=== PATIENT | female | born 1990 | race Caucasian/White ===

== ENCOUNTER 2016-06-28 18:00 | Emergency (ER) | payer MEDICAID, OTHER ==
[~2016-06-28 18:00] MED LIST: /OMEP10CA PO; /ONDA4TA PO; /OXCA30TA OR; ABIL2TAB2 PO; ACET50TAOT PO; ALBUTEROL INH; AMBI10TA OR; AMBI10TA PO; ANBE10LI TOP; ARTANE PO; ATARAX PO; BIRTH CONTROL PO; BLISTEX; CATA0.2T OR; CELE10TA OR; CIPR500T4 OR; CLOM50TA2 PO; CLON0.2T PO; DICL50TA2 PO; DIPH25CA PO; EFFE75CA75 OR; EFFEXOR XR PO; FLEXERIL PO; GABA600T PO; GABA600T3 OR; GARC500T PO; HYDR1CAP25 PO; IBUP800T23 PO; IBUP80TA PO; IBUPPOW25 PO; KEFL500C7 PO; LIDO5DIS EX; LOES1TAB12 PO; LOES1TAB2 PO; LOXAPINE PO; LOXITANE; METF500T PO; METH20TA29 PO; NEUR100C OR; NEUR600T OR; NORCOTAB PO; OMEP40CA2 PO; ONDA4TAB6 PO; PARO-39 PO; PAXI10TA2 PO; PAXI20TA3 PO; PERCOCET PO; PRENTAB74 PO; PRIL20CA OR; PRIL40CA PO; SOMA350T PO; TERCONAZOLE; TRAM50TA2 PO; TRAZ50TA OR; TYLE325T5 PO; TYLE500T78 PO; VALI5TAB PO; VENL75TA2 OR; VENLAFAXINE HCL PO; VOLT1GEL EX; VOLTAREN PO; ZOFR20TA PO; ZOFR4TAB3 PO; ZOLO50TA OR; artane
[2016-06-28 18:31] LABS: BASO % 0.4 % (0.0-1.0); EOS # 0.4 K/mm3 (0.0-0.50); EOS % 4.2 % (0.0-3.0); LARGE UNSTAINED CELL # 0.2 K/mm3 (0.0-0.4); LYMPH # 3.3 K/mm3 (1.5-6.5); MEAN CORPUSCULAR HEMOGLOBIN 25.1 pg (27.0-33.0); MEAN CORPUSCULAR HGB CONC 31.7 g/dl (32.0-36.5); MEAN CORPUSCULAR VOLUME 79.2 fl (80.0-96.0); MONO # 0.3 K/mm3 (0.0-0.8); MONO % 2.6 % (0.0-5.0); NEUTROPHILS # 5.5 K/mm3 (1.8-7.7); NEUTROPHILS % 56.6 % (36.0-66.0); PLATELET COUNT, AUTOMATED 336 k/mm3 (150-450); RED CELL DISTRIBUTION WIDTH 16.1 % (11.5-14.5); WHITE BLOOD COUNT 9.6 K/mm3 (4.0-10.0)
[2016-06-28] MEDS ORDERED: ONDANSETRON 4MG/2ML VIAL (J2405) As Ordered ONE (18:38)
[2016-06-28] MEDS ORDERED: MORPHINE 4 MG/ML 1ML SYRINGE As Ordered ONE ×2 (18:41→19:18)
[2016-06-28 19:02] LABS: ALBUMIN 3.1 GM/DL (3.2-5.2); ALBUMIN/GLOBULIN RATIO 0.82 (1.00-1.93); ALKALINE PHOSPHATASE 103 U/L (45-117); ALT/SGPT 20 U/L (12-78); ANION GAP 8 MEQ/L (8-16); AST/SGOT 10 U/L (15-37); BILIRUBIN,DIRECT < 0.1 MG/DL (0.0-0.2); BILIRUBIN,TOTAL 0.1 MG/DL (0.2-1.0); BLOOD UREA NITROGEN 8 MG/DL (7-18); CALCIUM LEVEL 8.4 MG/DL (8.5-10.1); CARBON DIOXIDE LEVEL 30 MEQ/L (21-32); CHLORIDE LEVEL 103 MEQ/L (98-107); CREATININE FOR GFR 0.62 MG/DL (0.55-1.02); GLOMERULAR FILTRATION RATE > 60.0 (>60); GLUCOSE, FASTING 91 MG/DL (70-105); HCG, SERUM QUANTITATIVE < 1.0 MIU/ML; POTASSIUM SERUM 3.8 MEQ/L (3.5-5.1); SODIUM LEVEL 141 MEQ/L (136-145); TOTAL PROTEIN 6.9 GM/DL (6.4-8.2)
[2016-06-28] MEDS ORDERED: ISOVUE-370 76% 100ML VIAL (Q9967) As Ordered ONE (20:12)
--- NOTE | 2016-06-28 20:44 | REP ---
Clinical: Acute abdominal pain. Technique: Axial contrast enhanced images from the lung bases to the pubic symphysis using 100 ml Isovue 370 intravenous contrast material with coronal and sagittal re-formations. Comparison: 02/24/2016. Findings: Trace left lower lobe and lingular atelectasis. Liver, spleen, pancreas, bilateral adrenal glands and kidneys are normal. The patient is status post cholecystectomy. The enteric system is without obstruction or acute inflammatory process and a normal terminal ileum and appendix are identified in the right lower quadrant. Pelvis demonstrates normal bladder and age-appropriate uterus/ left adnexa. 5 cm right ovarian cyst identified, likely physiologic in possibly related to patient's symptoms. No pelvic fluid or ascites. No intraperitoneal or retroperitoneal adenopathy. No free air. Vasculature appears grossly normal. Surrounding musculoskeletal structures are intact. Impression: Trace left basilar atelectasis. 5 cm right ovarian cyst possibly related to patient's symptoms. Consider ultrasound evaluation in 4-6 weeks to evaluate for resolution. Signed by Oleg Marr MD 06/28/2016 08:36 P
[2016-06-28] MEDS ORDERED: SUCRALFATE 1 GM TAB As Ordered ONE (21:30)
--- NOTE | 2016-06-28 22:33 | EDDOCDS ---
Nurse's Notes [facility] Name: Katie Busby Age: 25 yrs Sex: Female : 1990 Arrival Date: 06/28/2016 Time: 18:00 Bed 13 Private MD: Diagnosis: Acute gastritis Presentation: 06/28 18:07 Presenting complaint: Patient states: epigastric pain for the last hour. had dy at home and was not seen for it by DIGITAL MARKETING INTERN or PCP. Risk factors: the patient reports no vaginal bleeding. Adult Sepsis Screening: Suicide/Homicide risk assessment- the patient denies having any suicidal and/or homicidal ideations and does not present with any other emotional, behavioral or mental health complaints. 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 Transition of care: patient was not received from another setting of care. 18:07 Acuity: SHELBY Level 3 dy 18:07 Method Of Arrival: Ambulance dy 18:15 Adult Sepsis Screening: The patient does not have new or worsening altered mentation. dy Patient's respiratory rate is less than 22. Systolic blood pressure is greater than 100. Patient has a qSOFA score of 0- Negative Sepsis Screen. Triage Assessment: 18:10 General: Appears in no apparent distress. Pain: Location: epigastric area. HIV dy screening NA for this visit Offered previously. GI: Reports epigastric pain. DIGITAL MARKETING INTERN: 18:15 LMP N/A - recent miscarriage dy Historical: - Allergies: NSAIDS; Reglan (Anxiety); Robaxin (Hives)panic attack; SULFA (SULFONAMIDES) (Unknown, Hives); - Home Meds: 1. clonidine HCl 0.2 mg Oral tab 1 tab 2 times per day 2. Paxil 60mg Oral tab 1 tab once daily 3. omeprazole 40 mg Oral cpDR 1 cap once daily - PMHx: Adenomyosis; Anemia; Anxiety; chronic pelvic pain; Depression; ectopic ; Fibromyalgia; GERD; Pancreatitis; PCOS; - PSHx: Tonsillectomy; ; Cholecystectomy; - Social history: No barriers to communication noted, The patient speaks fluent Persian, Speaks appropriately for age, Smoking status: . - Family history: Not pertinent. - : The pt / caregiver states he / she is not on anticoagulants. Home medication list is obtained from the patient. - Exposure Risk Screening:: None identified. Screenin:01 Infection Control. deg 18:47 Screening information is obtained from the patient. Fall risk: No risks identified. hs1 Assistance ADL's: requires no assistance with activities of daily living. Abuse/DV Screen: The patient / caregiver reports he/she is: not in a situation that causes fear, pain or injury. Nutritional screening: No deficits noted. Advance Directives: There is no active DNR order. home support is adequate. Assessment: 18:30 General: Appears in no apparent distress, Behavior is appropriate for age, cooperative. hs1 Pain: Location: abdomen Pain currently is 10 out of 10 on a pain scale. Cardiovascular: Rhythm is sinus tachycardia. Respiratory: Airway is patent. GI: Abdomen is obese, Bowel sounds present X 4 quads. Abd is soft Abd is tender to palpation X 4 quads. Derm: Skin is pink, warm & dry. normal. 19:30 Reassessment: Patient appears in no apparent distress at this time. Patient states tm5 symptoms have not improved. 1st contact with pt in Room 13, complains of lower abdominal pain at this time, states that pain wasn't any better after the 1st dose of Morphine states "Morphine isn't working for me", ASHKAN Sanches aware of this . 20:20 Reassessment: Patient states symptoms have not improved. pt refuses to take GI Cocktail tm5 states "they make me vomit", ASHKAN Sanches aware of this, still complains of 9/10 lower abdominal pain. 20:55 Reassessment: Patient appears in no apparent distress at this time. Patient states tm5 symptoms have not improved. pt states that "nothing has helped my pain, I need something different & stronger", TELEVISION REPAIRER aware . 22:31 Reassessment: Patient appears in no apparent distress at this time. Patient denies pain tm5 at this time. Patient states feeling better. Patient states symptoms have improved. Vital Signs: 18:12 BP 103 / 76 (auto/); tm5 18:15 BP 103 / 76; Pulse 119; Resp 18; Temp 96.3(T); Pulse Ox 96% on R/A; Weight 131.54 kg dy (R); Height 5 ft. 7 in. (170.18 cm) (R); Pain 10/10; 18:15 Pulse 112 MON; Pulse Ox 97% ; tm5 18:32 BP 116 / 84 (auto/); tm5 18:33 Pulse 106 MON; Pulse Ox 97% on R/A; tm5 19:15 BP 118 / 54; Pulse 74; Resp 18; Pulse Ox 99% on R/A; Pain 9/10; tm5 21:34 BP 123 / 58; Pulse 78; Resp 18; Temp 98.6(O); Pulse Ox 99% on R/A; Pain 7/10; tm5 22:31 BP 118 / 56; Pulse 78; Resp 20; Temp 98.0(O); Pulse Ox 99% on R/A; Pain 0/10; tm5 18:15 Body Mass Index 45.42 (131.54 kg, 170.18 cm) dy Vitals: 18:15 Log In Time N/A - ambulance arrival. dy ED Course: 18:01 Patient visited by Toña Montgomery, Take Away Man. deg 18:01 Patient moved to Waiting deg 18:02 Patient moved to 13 deg 18:09 Triage Initiated dy 18:13 [facility] le 18:20 Patient visited by Nelida Sanches FNP. le 18:20 Patient visited by Nelida Sanches FNP. le 18:46 Inserted saline lock: 20 gauge in right antecubital area The patient tolerated the hs1 procedure well. 18:48 The patient / caregiver is instructed regarding the plan of care and ED course. hs1 18:51 Patient visited by Mary Samaniego RN. hs1 19:15 Pulse ox on. NIBP on. tm5 19:30 Patient visited by Angelica Méndez RN. tm5 20:10 Patient visited by Angelica Méndez RN. tm5 20:[address] tm5 20:19 Patient visited by Angelica Méndez RN. tm5 20:19 Patient moved back [address]. tm5 20:44 [facility] was scanned into [employer] and attached to record. zo 20:55 Patient visited by Angelica Méndez,NISREEN. tm5 21:02 Patient visited by Angelica Méndez RN. tm5 21:33 Patient visited by Angelica Méndez RN. tm5 21:34 CT ABD & PELVIS: IV Contrast Only Returned. EDMS 22:14 [facility] is Referral Physician. le 22:31 Discontinued lock intact, bleeding controlled, pressure dressing applied, No tm5 redness/swelling at site. No procedures done that require assistance. Administered Medications: 18:46 Drug: NS 0.9% 1000 ml [sodium chloride 0.9 % intravenous solution] Route: IV; Rate: hs1 bolus; Site: right antecubital; 18:46 Drug: Ondansetron 4 mg [ondansetron HCl 2 mg/mL intravenous solution (2 mL)] Route: hs1 IVP; Site: right antecubital; 19:33 Follow up: Response: Nausea is resolved; No Adverse Reaction tm5 18:46 Drug: morphine 4 mg [morphine 4 mg/mL intravenous cartridge (1 mL)] Route: IVP; Site: hs1 right antecubital; 19:25 Drug: morphine 4 mg [morphine 4 mg/mL intravenous cartridge (1 mL)] Route: IVP; Site: tm5 right antecubital; 19:50 Follow up: Response: No Adverse Reaction; No significant change.; Pain is unchanged, tm5 physician notified 20:20 Not Given (Patient Refused; pt states GI cocktails make her vomit, TELEVISION REPAIRER aware): GI tm5 Cocktail - (Alum-Mag Hydroxide-Simeth Suspension 225 mg-200 mg-25 mg/5 mL 30 ml, Lidocaine Liquid 2 % 10 ml, Hyoscyamine Liquid 10 ml) PO once; Pre-mixed 50mL unit dose 21:03 Drug: NS 0.9% 1000 ml [sodium chloride 0.9 % intravenous solution] Route: IV; Rate: 100 tm5 mL/hr; Site: right antecubital; 21:34 Drug: Sucralfate 1 grams [sucralfate 1 gram tablet (1 tabs)] Route: PO; tm5 Order Results: Lab Order: Basic Metabolic Profile; SPEC'M 06/28/16 18:24 Test: GLUCOSE, FASTING; Value: 91; Range: 70-105; Units: MG/DL; Status: F Test: BLOOD UREA NITROGEN; Value: 8; Range: 7-18; Units: MG/DL; Status: F Test: CREATININE FOR GFR; Value: 0.62; Range: 0.55-1.02; Units: MG/DL; Status: F Test: GLOMERULAR FILTRATION RATE; Value: > 60.0; Range: >60; Status: F Test: SODIUM LEVEL; Value: 141; Range: 136-145; Units: MEQ/L; Status: F Test: POTASSIUM SERUM; Value: 3.8; Range: 3.5-5.1; Units: MEQ/L; Status: F Test: CHLORIDE LEVEL; Value: 103; Range: 98-107; Units: MEQ/L; Status: F Test: CARBON DIOXIDE LEVEL; Value: 30; Range: 21-32; Units: MEQ/L; Status: F Test: ANION GAP; Value: 8; Range: 8-16; Units: MEQ/L; Status: F Test: CALCIUM LEVEL; Value: 8.4; Range: 8.5-10.1; Abnormal: Below low normal; Units: MG/DL; Status: F Test Note: ; Units are mL/min/1.73 m2 Chronic Kidney Disease Staging per NKF: Stage I & II GFR >=60 Normal to Mildly Decreased Stage III GFR 30-59 Moderately Decreased Stage IV GFR 15-29 Severely Decreased Stage V GFR <15 Very Little GFR Left ESRD GFR <15 on RECEPTION AGENT Lab Order: CBC with Diff; SPEC'M 06/28/16 18:24 Test: WHITE BLOOD COUNT; Value: 9.6; Range: 4.0-10.0; Units: K/mm3; Status: F Test: RED BLOOD COUNT; Value: 4.40; Range: 4.00-5.40; Units: M/mm3; Status: F Test: HEMOGLOBIN; Value: 11.0; Range: 12.0-16.0; Abnormal: Below low normal; Units: g/dl; Status: F Test: HEMATOCRIT; Value: 34.8; Range: 36.0-47.0; Abnormal: Below low normal; Units: %; Status: F Test: MEAN CORPUSCULAR VOLUME; Value: 79.2; Range: 80.0-96.0; Abnormal: Below low normal; Units: fl; Status: F Test: MEAN CORPUSCULAR HEMOGLOBIN; Value: 25.1; Range: 27.0-33.0; Abnormal: Below low normal; Units: pg; Status: F Test: MEAN CORPUSCULAR HGB CONC; Value: 31.7; Range: 32.0-36.5; Abnormal: Below low normal; Units: g/dl; Status: F Test: RED CELL DISTRIBUTION WIDTH; Value: 16.1; Range: 11.5-14.5; Abnormal: Above high normal; Units: %; Status: F Test: PLATELET COUNT, AUTOMATED; Value: 336; Range: 150-450; Units: k/mm3; Status: F Test: NEUTROPHILS %; Value: 56.6; Range: 36.0-66.0; Units: %; Status: F Test: LYMPH %; Value: 34.0; Range: 24.0-44.0; Units: %; Status: F Test: MONO %; Value: 2.6; Range: 0.0-5.0; Units: %; Status: F Test: EOS %; Value: 4.2; Range: 0.0-3.0; Abnormal: Above high normal; Units: %; Status: F Test: BASO %; Value: 0.4; Range: 0.0-1.0; Units: %; Status: F Test: LARGE UNSTAINED CELL %; Value: 2.0; Range: 0.0-4.0; Units: %; Status: F Test: NEUTROPHILS #; Value: 5.5; Range: 1.8-7.7; Units: K/mm3; Status: F Test: LYMPH #; Value: 3.3; Range: 1.5-6.5; Units: K/mm3; Status: F Test: MONO #; Value: 0.3; Range: 0.0-0.8; Units: K/mm3; Status: F Test: EOS #; Value: 0.4; Range: 0.0-0.50; Units: K/mm3; Status: F Test: BASO #; Value: 0.0; Range: 0.0-0.2; Units: K/mm3; Status: F Test: LARGE UNSTAINED CELL #; Value: 0.2; Range: 0.0-0.4; Units: K/mm3; Status: F Lab Order: Lipase; SPEC'M 06/28/16 18:24 Test: LIPASE; Value: 185; Range: 73-393; Units: U/L; Status: F Lab Order: Liver Profile; SPEC'M 06/28/16 18:24 Test: AST/SGOT; Value: 10; Range: 15-37; Abnormal: Below low normal; Units: U/L; Status: F Test: ALT/SGPT; Value: 20; Range: 12-78; Units: U/L; Status: F Test: ALKALINE PHOSPHATASE; Value: 103; Range: 45-117; Units: U/L; Status: F Test: BILIRUBIN,TOTAL; Value: 0.1; Range: 0.2-1.0; Abnormal: Below low normal; Units: MG/DL; Status: F Test: BILIRUBIN,DIRECT; Value: < 0.1; Range: 0.0-0.2; Units: MG/DL; Status: F Test: TOTAL PROTEIN; Value: 6.9; Range: 6.4-8.2; Units: GM/DL; Status: F Test: ALBUMIN; Value: 3.1; Range: 3.2-5.2; Abnormal: Below low normal; Units: GM/DL; Status: F Test: ALBUMIN/GLOBULIN RATIO; Value: 0.82; Range: 1.00-1.93; Abnormal: Below low normal; Status: F Lab Order: Hcg, Serum Quantitative; SPEC'M 06/28/16 18:24 Test: HCG, SERUM QUANTITATIVE; Value: < 1.0; Units: MIU/ML; Status: F Test Note: ; GESTATIONAL AGE APPROXIMATE HCG RANGE (MIU/ML) 0.2-1 WEEK 5-50 1-2 WEEKS 50-500 2-3 WEEKS 100-5,000 3-4 WEEKS 500-10,000 4-5 WEEKS 1,000-50,000 5-6 WEEKS 10,000-100,000 6-8 WEEKS 15,000-200,000 2-3 MONTHS 10,000-100,000 NON FEMALES LESS THAN 3.0 Patient samples may contain human heterophilic antibodies that could react with immunoassays to give falsely elevated or depressed results. This assay has been designed to minimize interference from heterophilic antibodies. Elevated hCG levels have also been associated with trophoblastic disease and nontrophoblastic neoplasms. The possibility of having these diseases should be considered before a diagnosis of is made. This test is not intended for use as a surrogate marker for aiding in the diagnosis or monitoring the treatment of cancer patients. Sp[employer] methodology. Lab Order: UA; SPEC'M 06/28/16 19:26 Test: APPEARANCE, URINE; Value: CLEAR; Range: CLEAR; Status: F Test: COLOR, URINE; Value: YELLOW; Range: YELLOW; Status: F Test: PH,URINE; Value: 7.0; Range: 5.0-9.0; Units: UNITS; Status: F Test: SPECIFIC GRAVITY URINE AUTO; Value: 1.013; Range: 1.002-1.035; Status: F Test: PROTEIN, URINE AUTO; Value: NEGATIVE; Range: NEGATIVE; Units: mg/dL; Status: F Test: GLUCOSE, URINE (UA) AUTO; Value: NEGATIVE; Range: NEGATIVE; Units: mg/dL; Status: F Test: KETONE, URINE AUTO; Value: NEGATIVE; Range: NEGATIVE; Units: mg/dL; Status: F Test: UROBILINOGEN, URINE AUTO; Value: 0.2; Range: 0.0-2.0; Units: mg/dL; Status: F Test: BILIRUBIN, URINE AUTO; Value: NEGATIVE; Range: NEGATIVE; Status: F Test: NITRITE, URINE AUTO; Value: NEGATIVE; Range: NEGATIVE; Status: F Test: LEUKOCYTE ESTERASE, URINE AUTO; Value: NEGATIVE; Range: NEGATIVE; Status: F Test: BLOOD, URINE BLOOD; Value: NEGATIVE; Range: NEGATIVE; Status: F Test: WBC, URINE AUTO; Value: 2; Range: 0-3; Units: /HPF; Status: F Test: RBC, URINE AUTO; Value: 1; Range: 0-3; Units: /HPF; Status: F Test: BACTERIA, URINE AUTO; Value: 1+; Range: NEGATIVE; Abnormal: Above high normal; Status: F Test: SQUAMOUS EPITHELIAL CELL UR AU; Value: 1; Range: 0-6; Units: /HPF; Status: F Test: HYALINE CAST, URINE AUTO; Value: 0; Range: 0-1; Units: /LPF; Status: F Radiology Order: CT ABD & PELVIS: IV Contrast Only Test: CT ABD & PELVIS: IV Contrast Only REASON FOR EXAMINATION: Abdomen Pain; Clinical: Acute abdominal pain.; ; Technique: Axial contrast enhanced images from the lung bases to the pubic; symphysis using 100 ml Isovue 370 intravenous contrast material with coronal and; sagittal re-formations.; ; Comparison: 02/24/2016.; ; Findings:; Trace left lower lobe and lingular atelectasis.; ; Liver, spleen, pancreas, bilateral adrenal glands and kidneys are normal. The; patient is status post cholecystectomy. The enteric system is without; obstruction or acute inflammatory process and a normal terminal ileum and; appendix are identified in the right lower quadrant.; ; Pelvis demonstrates normal bladder and age-appropriate uterus/ left adnexa. 5 cm; right ovarian cyst identified, likely physiologic in possibly related to; patient's symptoms. No pelvic fluid or ascites. No intraperitoneal or; retroperitoneal adenopathy. No free air. Vasculature appears grossly normal.; Surrounding musculoskeletal structures are intact.; ; Impression:; Trace left basilar atelectasis.; 5 cm right ovarian cyst possibly related to patient's symptoms. Consider; ultrasound evaluation in 4-6 weeks to evaluate for resolution.; ; ; Signed by; Oleg Marr MD 06/28/2016 08:36 P; Outcome: 22:14 Discharge ordered by Provider. le 22:31 Discharge Assessment: Patient awake, alert and oriented x 3. No cognitive and/or tm5 functional deficits noted. Patient verbalized understanding of disposition instructions. patient administered narcotics - yes. Pt provided with safe discharge. The following High Risk Discharge criteria are identified: None. Discharged to home ambulatory. Condition: good Condition: stable Condition: improved. Discharge instructions given to patient, Instructed on discharge instructions, follow up and referral plans. medication usage, Demonstrated understanding of instructions, medications, Pt was receptive of discharge instructions/ teaching. Prescriptions given X 1. CT Study completed. Property :Personal belongings accompany Pt. 22:32 Patient left the ED. tm5 Signatures: Dispatcher [employer] EDToña Tim, Take Away Man Unit deg Baldomero Thornton, RN Nichole Staples Lisa, DIGITAL PRINTER DIGITAL PRINTER Mary Kat, RN RN hs1 Angelica Méndez,NISREEN RN tm5 MTDD
--- NOTE | 2016-06-28 22:33 | EDDOCDS ---
Physician Documentation [facility] Name: Katie Busby Age: 25 yrs Sex: Female : 1990 Arrival Date: 06/28/2016 Time: 18:00 Bed 13 Private MD: Disposition: 06/28 22:15 Critical Care: Critical care not applicable. elena Disposition: 06/28/16 22:14 Discharged to Home/Self Care. Impression: Acute gastritis. - Condition is Stable. - Discharge Instructions: Gastritis, Adult. - Prescriptions for Carafate 1 gram Oral Tablet - take 1 tablet by ORAL route 4 times per day take on an empty stomach, beginning on waking and last dose at bedtime; 100 tablet. - Medication Reconciliation, Local Pharmacy Hours form. - Follow up: [facility]; When: Call to arrange an appointment; Reason: Recheck today's complaints, Continuance of care. - Problem is new. - Symptoms have improved. - Notes: Keep hydrated Return to the ED for any further concerns Historical: - Allergies: NSAIDS; Reglan (Anxiety); Robaxin (Hives)panic attack; SULFA (SULFONAMIDES) (Unknown, Hives); - Home Meds: 1. clonidine HCl 0.2 mg Oral tab 1 tab 2 times per day 2. Paxil 60mg Oral tab 1 tab once daily 3. omeprazole 40 mg Oral cpDR 1 cap once daily - PMHx: Adenomyosis; Anemia; Anxiety; chronic pelvic pain; Depression; ectopic ; Fibromyalgia; GERD; Pancreatitis; PCOS; - PSHx: Tonsillectomy; ; Cholecystectomy; - Social history: No barriers to communication noted, The patient speaks fluent Kinyarwanda, Speaks appropriately for age, Smoking status: . - Family history: Not pertinent. - : The pt / caregiver states he / she is not on anticoagulants. Home medication list is obtained from the patient. - Exposure Risk Screening:: None identified. CREATIVE COORDINATOR: 18:15 LMP N/A - recent miscarriage dy Vital Signs: 18:12 BP 103 / 76 (auto/); tm5 18:15 BP 103 / 76; Pulse 119; Resp 18; Temp 96.3(T); Pulse Ox 96% on R/A; Weight 131.54 kg / dy 290 lbs (R); Height 5 ft. 7 in. (170.18 cm) (R); Pain 10/10; 18:15 Pulse 112 MON; Pulse Ox 97% ; tm5 18:32 BP 116 / 84 (auto/); tm5 18:33 Pulse 106 MON; Pulse Ox 97% on R/A; tm5 19:15 BP 118 / 54; Pulse 74; Resp 18; Pulse Ox 99% on R/A; Pain 9/10; tm5 21:34 BP 123 / 58; Pulse 78; Resp 18; Temp 98.6(O); Pulse Ox 99% on R/A; Pain 7/10; tm5 22:31 BP 118 / 56; Pulse 78; Resp 20; Temp 98.0(O); Pulse Ox 99% on R/A; Pain 0/10; tm5 18:15 Body Mass Index 45.42 (131.54 kg, 170.18 cm) dy MDM: 18:20 NS 0.9% 1000 ml IV at bolus once ordered. le 18:20 NS 0.9% 1000 ml IV at 100 mL/hr continuous ordered. le 18:20 Ondansetron 4 mg IVP once ordered. le 18:20 IV Saline Lock ordered. le 18:20 Undress patient appropriately for examination ordered. le 18:20 Basic Metabolic Profile Ordered. EDMS 18:20 CBC with Diff Ordered. EDMS 18:20 Lipase Ordered. EDMS 18:20 Liver Profile Ordered. EDMS 18:20 Hcg, Serum Quantitative Ordered. EDMS 18:20 NOTHING BY MOUTH+DIET ordered. EDMS 18:33 UA Ordered. EDMS 18:41 morphine 4 mg IVP every 15 minutes; Document pain score/vitals after each dose (Hold if le SBP < 90mmHg) x2 ordered. 19:26 Basic Metabolic Profile Reviewed. le 19:26 CBC with Diff Reviewed. le 19:26 Liver Profile Reviewed. le 19:26 Lipase Reviewed. le 19:26 Hcg, Serum Quantitative Reviewed. le 19:30 CT ABD & PELVIS: IV Contrast Only Ordered. EDMS 19:34 GI Cocktail - (Alum-Mag Hydroxide-Simeth 30 ml, Lidocaine 10 ml, Hyoscyamine 10 ml) PO le once; Pre-mixed 50mL unit dose ordered. 20:43 Financial registration complete. zo 20:44 [facility] was scanned into [employer] and attached to record. zo 21:24 UA Reviewed. le 21:26 Sucralfate 1 grams PO once ordered. le Administered Medications: 18:46 Drug: NS 0.9% 1000 ml [sodium chloride 0.9 % intravenous solution] Route: IV; Rate: hs1 bolus; Site: right antecubital; 18:46 Drug: Ondansetron 4 mg [ondansetron HCl 2 mg/mL intravenous solution (2 mL)] Route: hs1 IVP; Site: right antecubital; 19:33 Follow up: Response: Nausea is resolved; No Adverse Reaction tm5 18:46 Drug: morphine 4 mg [morphine 4 mg/mL intravenous cartridge (1 mL)] Route: IVP; Site: hs1 right antecubital; 19:25 Drug: morphine 4 mg [morphine 4 mg/mL intravenous cartridge (1 mL)] Route: IVP; Site: tm5 right antecubital; 19:50 Follow up: Response: No Adverse Reaction; No significant change.; Pain is unchanged, tm5 physician notified 20:20 Not Given (Patient Refused; pt states GI cocktails make her vomit, PHYSICAL THERAPIST AIDE aware): GI tm5 Cocktail - (Alum-Mag Hydroxide-Simeth Suspension 225 mg-200 mg-25 mg/5 mL 30 ml, Lidocaine Liquid 2 % 10 ml, Hyoscyamine Liquid 10 ml) PO once; Pre-mixed 50mL unit dose 21:03 Drug: NS 0.9% 1000 ml [sodium chloride 0.9 % intravenous solution] Route: IV; Rate: 100 tm5 mL/hr; Site: right antecubital; 21:34 Drug: Sucralfate 1 grams [sucralfate 1 gram tablet (1 tabs)] Route: PO; tm5 Signatures: Dispatcher [employer] Baldomero Grubbs, RN RN Nichole Matt Lisa, DRILL SETUP OPERATOR DRILL SETUP OPERATOR Angelica Mccarthy RN RN tm5 Mary Samaniego RN hs1 The chart was reviewed and I authenticate all verbal orders and agree with the evaluation and treatment provided.Attachments: 20:44 [facility] Payment Agreement zo MTDD
--- NOTE | 2016-06-30 23:33 | EDDOCDS ---
Physician Documentation [facility] Name: Katie Busby Age: 25 yrs Sex: Female : 1990 Arrival Date: 06/28/2016 Time: 18:00 Bed 13 Private MD: Disposition: 06/28 22:15 Critical Care: Critical care not applicable. elena Disposition: 06/28/16 22:14 Discharged to Home/Self Care. Impression: Acute gastritis. - Condition is Stable. - Discharge Instructions: Gastritis, Adult. - Prescriptions for Carafate 1 gram Oral Tablet - take 1 tablet by ORAL route 4 times per day take on an empty stomach, beginning on waking and last dose at bedtime; 100 tablet. - Medication Reconciliation, Local Pharmacy Hours form. - Follow up: [facility] - Adults; When: Call to arrange an appointment; Reason: Recheck today's complaints, Continuance of care. - Problem is new. - Symptoms have improved. - Notes: Keep hydrated Return to the ED for any further concerns Historical: - Allergies: NSAIDS; Reglan (Anxiety); Robaxin (Hives)panic attack; SULFA (SULFONAMIDES) (Unknown, Hives); - Home Meds: 1. clonidine HCl 0.2 mg Oral tab 1 tab 2 times per day 2. Paxil 60mg Oral tab 1 tab once daily 3. omeprazole 40 mg Oral cpDR 1 cap once daily - PMHx: Adenomyosis; Anemia; Anxiety; chronic pelvic pain; Depression; ectopic ; Fibromyalgia; GERD; Pancreatitis; PCOS; - PSHx: Tonsillectomy; ; Cholecystectomy; - Social history: No barriers to communication noted, The patient speaks fluent Frisian, Speaks appropriately for age, Smoking status: . - Family history: Not pertinent. - : The pt / caregiver states he / she is not on anticoagulants. Home medication list is obtained from the patient. - Exposure Risk Screening:: None identified. 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 7 in. (170.18 cm) (R); Pain 10/10; 18:15 Pulse 112 MON; Pulse Ox 97% ; tm5 18:32 BP 116 / 84 (auto/); tm5 18:33 Pulse 106 MON; Pulse Ox 97% on R/A; tm5 19:15 BP 118 / 54; Pulse 74; Resp 18; Pulse Ox 99% on R/A; Pain 9/10; tm5 21:34 BP 123 / 58; Pulse 78; Resp 18; Temp 98.6(O); Pulse Ox 99% on R/A; Pain 7/10; tm5 22:31 BP 118 / 56; Pulse 78; Resp 20; Temp 98.0(O); Pulse Ox 99% on R/A; Pain 0/10; tm5 18:15 Body Mass Index 45.42 (131.54 kg, 170.18 cm) dy MDM: 18:20 NS 0.9% 1000 ml IV at bolus once ordered. le 18:20 NS 0.9% 1000 ml IV at 100 mL/hr continuous ordered. le 18:20 Ondansetron 4 mg IVP once ordered. le 18:20 IV Saline Lock ordered. le 18:20 Undress patient appropriately for examination ordered. le 18:20 Basic Metabolic Profile Ordered. EDMS 18:20 CBC with Diff Ordered. EDMS 18:20 Lipase Ordered. EDMS 18:20 Liver Profile Ordered. EDMS 18:20 Hcg, Serum Quantitative Ordered. EDMS 18:20 NOTHING BY MOUTH+DIET ordered. EDMS 18:33 UA Ordered. EDMS 18:41 morphine 4 mg IVP every 15 minutes; Document pain score/vitals after each dose (Hold if le SBP < 90mmHg) x2 ordered. 19:26 Basic Metabolic Profile Reviewed. le 19:26 CBC with Diff Reviewed. le 19:26 Liver Profile Reviewed. le 19:26 Lipase Reviewed. le 19:26 Hcg, Serum Quantitative Reviewed. le 19:30 CT ABD & PELVIS: IV Contrast Only Ordered. EDMS 19:34 GI Cocktail - (Alum-Mag Hydroxide-Simeth 30 ml, Lidocaine 10 ml, Hyoscyamine 10 ml) PO le once; Pre-mixed 50mL unit dose ordered. 20:43 Financial registration complete. zo 20:44 [facility] Payment Agreement was scanned into [employer] and attached to record. zo 21:24 UA Reviewed. le 21:26 Sucralfate 1 grams PO once ordered. le 06/29 09:36 T-Sheet-- Draft Copy was scanned into [employer] and attached to record. [facility] Administered Medications: 06/28 18:46 Drug: NS 0.9% 1000 ml [sodium chloride 0.9 % intravenous solution] Route: IV; Rate: hs1 bolus; Site: right antecubital; 18:46 Drug: Ondansetron 4 mg [ondansetron HCl 2 mg/mL intravenous solution (2 mL)] Route: hs1 IVP; Site: right antecubital; 19:33 Follow up: Response: Nausea is resolved; No Adverse Reaction tm5 18:46 Drug: morphine 4 mg [morphine 4 mg/mL intravenous cartridge (1 mL)] Route: IVP; Site: hs1 right antecubital; 19:25 Drug: morphine 4 mg [morphine 4 mg/mL intravenous cartridge (1 mL)] Route: IVP; Site: tm5 right antecubital; 19:50 Follow up: Response: No Adverse Reaction; No significant change.; Pain is unchanged, tm5 physician notified 20:20 Not Given (Patient Refused; pt states GI cocktails make her vomit, 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): GI tm5 Cocktail - (Alum-Mag Hydroxide-Simeth Suspension 225 mg-200 mg-25 mg/5 mL 30 ml, Lidocaine Liquid 2 % 10 ml, Hyoscyamine Liquid 10 ml) PO once; Pre-mixed 50mL unit dose 21:03 Drug: NS 0.9% 1000 ml [sodium chloride 0.9 % intravenous solution] Route: IV; Rate: 100 tm5 mL/hr; Site: right antecubital; 21:34 Drug: Sucralfate 1 grams [sucralfate 1 gram tablet (1 tabs)] Route: PO; tm5 Signatures: Dispatcher [employer] EDMS Baldomero Thornton RN RN dy Olin, Zoeann zo Westcott, Lisa, TUBE TEST TECHNICIAN TUBE TEST TECHNICIAN Carol Kate Tonya, RN RN tm5 Mary Samaniego RN hs1 The chart was reviewed and I authenticate all verbal orders and agree with the evaluation and treatment provided.Attachments: 20:44 [facility] Payment Agreement zo 06/29 09:36 T-Sheet-- Draft Copy seh Chart Complete MTDD
--- NOTE | 2016-06-30 23:33 | EDDOCDS ---
Physician Documentation [facility] Name: Katie Busby Age: 25 yrs Sex: Female : 1990 Arrival Date: 06/28/2016 Time: 18:00 Bed 13 Private MD: Disposition: 06/28 22:15 Critical Care: Critical care not applicable. elena Disposition: 06/28/16 22:14 Discharged to Home/Self Care. Impression: Acute gastritis. - Condition is Stable. - Discharge Instructions: Gastritis, Adult. - Prescriptions for Carafate 1 gram Oral Tablet - take 1 tablet by ORAL route 4 times per day take on an empty stomach, beginning on waking and last dose at bedtime; 100 tablet. - Medication Reconciliation, Local Pharmacy Hours form. - Follow up: [facility] - Adults; When: Call to arrange an appointment; Reason: Recheck today's complaints, Continuance of care. - Problem is new. - Symptoms have improved. - Notes: Keep hydrated Return to the ED for any further concerns Historical: - Allergies: NSAIDS; Reglan (Anxiety); Robaxin (Hives)panic attack; SULFA (SULFONAMIDES) (Unknown, Hives); - Home Meds: 1. clonidine HCl 0.2 mg Oral tab 1 tab 2 times per day 2. Paxil 60mg Oral tab 1 tab once daily 3. omeprazole 40 mg Oral cpDR 1 cap once daily - PMHx: Adenomyosis; Anemia; Anxiety; chronic pelvic pain; Depression; ectopic ; Fibromyalgia; GERD; Pancreatitis; PCOS; - PSHx: Tonsillectomy; ; Cholecystectomy; - Social history: No barriers to communication noted, The patient speaks fluent Maori, Speaks appropriately for age, Smoking status: . - Family history: Not pertinent. - : The pt / caregiver states he / she is not on anticoagulants. Home medication list is obtained from the patient. - Exposure Risk Screening:: None identified. 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 7 in. (170.18 cm) (R); Pain 10/10; 18:15 Pulse 112 MON; Pulse Ox 97% ; tm5 18:32 BP 116 / 84 (auto/); tm5 18:33 Pulse 106 MON; Pulse Ox 97% on R/A; tm5 19:15 BP 118 / 54; Pulse 74; Resp 18; Pulse Ox 99% on R/A; Pain 9/10; tm5 21:34 BP 123 / 58; Pulse 78; Resp 18; Temp 98.6(O); Pulse Ox 99% on R/A; Pain 7/10; tm5 22:31 BP 118 / 56; Pulse 78; Resp 20; Temp 98.0(O); Pulse Ox 99% on R/A; Pain 0/10; tm5 18:15 Body Mass Index 45.42 (131.54 kg, 170.18 cm) dy MDM: 18:20 NS 0.9% 1000 ml IV at bolus once ordered. le 18:20 NS 0.9% 1000 ml IV at 100 mL/hr continuous ordered. le 18:20 Ondansetron 4 mg IVP once ordered. le 18:20 IV Saline Lock ordered. le 18:20 Undress patient appropriately for examination ordered. le 18:20 Basic Metabolic Profile Ordered. EDMS 18:20 CBC with Diff Ordered. EDMS 18:20 Lipase Ordered. EDMS 18:20 Liver Profile Ordered. EDMS 18:20 Hcg, Serum Quantitative Ordered. EDMS 18:20 NOTHING BY MOUTH+DIET ordered. EDMS 18:33 UA Ordered. EDMS 18:41 morphine 4 mg IVP every 15 minutes; Document pain score/vitals after each dose (Hold if le SBP < 90mmHg) x2 ordered. 19:26 Basic Metabolic Profile Reviewed. le 19:26 CBC with Diff Reviewed. le 19:26 Liver Profile Reviewed. le 19:26 Lipase Reviewed. le 19:26 Hcg, Serum Quantitative Reviewed. le 19:30 CT ABD & PELVIS: IV Contrast Only Ordered. EDMS 19:34 GI Cocktail - (Alum-Mag Hydroxide-Simeth 30 ml, Lidocaine 10 ml, Hyoscyamine 10 ml) PO le once; Pre-mixed 50mL unit dose ordered. 20:43 Financial registration complete. zo 20:44 [facility] Payment Agreement was scanned into [employer] and attached to record. zo 21:24 UA Reviewed. le 21:26 Sucralfate 1 grams PO once ordered. le 06/29 09:36 T-Sheet-- Draft Copy was scanned into [employer] and attached to record. [facility] Administered Medications: 06/28 18:46 Drug: NS 0.9% 1000 ml [sodium chloride 0.9 % intravenous solution] Route: IV; Rate: hs1 bolus; Site: right antecubital; 18:46 Drug: Ondansetron 4 mg [ondansetron HCl 2 mg/mL intravenous solution (2 mL)] Route: hs1 IVP; Site: right antecubital; 19:33 Follow up: Response: Nausea is resolved; No Adverse Reaction tm5 18:46 Drug: morphine 4 mg [morphine 4 mg/mL intravenous cartridge (1 mL)] Route: IVP; Site: hs1 right antecubital; 19:25 Drug: morphine 4 mg [morphine 4 mg/mL intravenous cartridge (1 mL)] Route: IVP; Site: tm5 right antecubital; 19:50 Follow up: Response: No Adverse Reaction; No significant change.; Pain is unchanged, tm5 physician notified 20:20 Not Given (Patient Refused; pt states GI cocktails make her vomit, 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): GI tm5 Cocktail - (Alum-Mag Hydroxide-Simeth Suspension 225 mg-200 mg-25 mg/5 mL 30 ml, Lidocaine Liquid 2 % 10 ml, Hyoscyamine Liquid 10 ml) PO once; Pre-mixed 50mL unit dose 21:03 Drug: NS 0.9% 1000 ml [sodium chloride 0.9 % intravenous solution] Route: IV; Rate: 100 tm5 mL/hr; Site: right antecubital; 21:34 Drug: Sucralfate 1 grams [sucralfate 1 gram tablet (1 tabs)] Route: PO; tm5 Signatures: Dispatcher [employer] EDMS Baldomero Thornton RN RN dy Olin, Zoeann zo Westcott, Lisa, ELEVATOR PILOT ELEVATOR PILOT Carol Kate Tonya, RN RN tm5 Mary Samaniego RN hs1 The chart was reviewed and I authenticate all verbal orders and agree with the evaluation and treatment provided.Attachments: 20:44 [facility] Payment Agreement zo 06/29 09:36 T-Sheet-- Draft Copy seh Chart Complete MTDD
--- NOTE | 2016-06-30 23:34 | EDDOCDS ---
Nurse's Notes [facility] Name: Katie Busby Age: 25 yrs Sex: Female : 1990 Arrival Date: 06/28/2016 Time: 18:00 Bed 13 Private MD: Diagnosis: Acute gastritis Presentation: 06/28 18:07 Presenting complaint: Patient states: epigastric pain for the last hour. had dy at home and was not seen for it by ELECTRICIAN YARD or PCP. Risk factors: the patient reports no vaginal bleeding. Adult Sepsis Screening: Suicide/Homicide risk assessment- the patient denies having any suicidal and/or homicidal ideations and does not present with any other emotional, behavioral or mental health complaints. Status: Patient is not a managed services consultant or dependent. Transition of care: patient was not received from another setting of care. 18:07 Acuity: SHELBY Level 3 dy 18:07 Method Of Arrival: Ambulance dy 18:15 Adult Sepsis Screening: The patient does not have new or worsening altered mentation. dy Patient's respiratory rate is less than 22. Systolic blood pressure is greater than 100. Patient has a qSOFA score of 0- Negative Sepsis Screen. Triage Assessment: 18:10 General: Appears in no apparent distress. Pain: Location: epigastric area. HIV dy screening NA for this visit Offered previously. GI: Reports epigastric pain. ELECTRICIAN YARD: 18:15 LMP N/A - recent miscarriage dy Historical: - Allergies: NSAIDS; Reglan (Anxiety); Robaxin (Hives)panic attack; SULFA (SULFONAMIDES) (Unknown, Hives); - Home Meds: 1. clonidine HCl 0.2 mg Oral tab 1 tab 2 times per day 2. Paxil 60mg Oral tab 1 tab once daily 3. omeprazole 40 mg Oral cpDR 1 cap once daily - PMHx: Adenomyosis; Anemia; Anxiety; chronic pelvic pain; Depression; ectopic ; Fibromyalgia; GERD; Pancreatitis; PCOS; - PSHx: Tonsillectomy; ; Cholecystectomy; - Social history: No barriers to communication noted, The patient speaks fluent Ukrainian, Speaks appropriately for age, Smoking status: . - Family history: Not pertinent. - : The pt / caregiver states he / she is not on anticoagulants. Home medication list is obtained from the patient. - Exposure Risk Screening:: None identified. Screenin:01 Infection Control. deg 18:47 Screening information is obtained from the patient. Fall risk: No risks identified. hs1 Assistance ADL's: requires no assistance with activities of daily living. Abuse/DV Screen: The patient / caregiver reports he/she is: not in a situation that causes fear, pain or injury. Nutritional screening: No deficits noted. Advance Directives: There is no active DNR order. home support is adequate. Assessment: 18:30 General: Appears in no apparent distress, Behavior is appropriate for age, cooperative. hs1 Pain: Location: abdomen Pain currently is 10 out of 10 on a pain scale. Cardiovascular: Rhythm is sinus tachycardia. Respiratory: Airway is patent. GI: Abdomen is obese, Bowel sounds present X 4 quads. Abd is soft Abd is tender to palpation X 4 quads. Derm: Skin is pink, warm & dry. normal. 19:30 Reassessment: Patient appears in no apparent distress at this time. Patient states tm5 symptoms have not improved. 1st contact with pt in Room 13, complains of lower abdominal pain at this time, states that pain wasn't any better after the 1st dose of Morphine states "Morphine isn't working for me", ASHKAN Sanches aware of this . 20:20 Reassessment: Patient states symptoms have not improved. pt refuses to take GI Cocktail tm5 states "they make me vomit", ASHKAN Sanches aware of this, still complains of 9/10 lower abdominal pain. 20:55 Reassessment: Patient appears in no apparent distress at this time. Patient states tm5 symptoms have not improved. pt states that "nothing has helped my pain, I need something different & stronger", INVESTMENTS MANAGER aware . 22:31 Reassessment: Patient appears in no apparent distress at this time. Patient denies pain tm5 at this time. Patient states feeling better. Patient states symptoms have improved. Vital Signs: 18:12 BP 103 / 76 (auto/); tm5 18:15 BP 103 / 76; Pulse 119; Resp 18; Temp 96.3(T); Pulse Ox 96% on R/A; Weight 131.54 kg dy (R); Height 5 ft. 7 in. (170.18 cm) (R); Pain 10/10; 18:15 Pulse 112 MON; Pulse Ox 97% ; tm5 18:32 BP 116 / 84 (auto/); tm5 18:33 Pulse 106 MON; Pulse Ox 97% on R/A; tm5 19:15 BP 118 / 54; Pulse 74; Resp 18; Pulse Ox 99% on R/A; Pain 9/10; tm5 21:34 BP 123 / 58; Pulse 78; Resp 18; Temp 98.6(O); Pulse Ox 99% on R/A; Pain 7/10; tm5 22:31 BP 118 / 56; Pulse 78; Resp 20; Temp 98.0(O); Pulse Ox 99% on R/A; Pain 0/10; tm5 18:15 Body Mass Index 45.42 (131.54 kg, 170.18 cm) dy Vitals: 18:15 Log In Time N/A - ambulance arrival. dy ED Course: 18:01 Patient visited by Toña Montgomery, Blow Mold Technician. deg 18:01 Patient moved to Waiting deg 18:02 Patient moved to 13 deg 18:09 Triage Initiated dy 18:13 Nelida Sanches F[facility]. le 18:20 Patient visited by Nelida Sanches FNP. le 18:20 Patient visited by Nelida Sanches FNP. le 18:46 Inserted saline lock: 20 gauge in right antecubital area The patient tolerated the hs1 procedure well. 18:48 The patient / caregiver is instructed regarding the plan of care and ED course. hs1 18:51 Patient visited by Mary Samaniego RN. hs1 19:15 Pulse ox on. NIBP on. tm5 19:30 Patient visited by Angelica Méndez RN. tm5 20:10 Patient visited by Angelica Méndez RN. tm5 20:[address] tm5 20:19 Patient visited by Angelica Méndez RN. tm5 20:19 Patient moved back from CT. tm5 20:44 [facility] Payment Agreement was scanned into [employer] and attached to record. zo 20:55 Patient visited by Angelica Méndez,NISREEN. tm5 21:02 Patient visited by Angelica Méndez RN. tm5 21:33 Patient visited by Angelica Méndez RN. tm5 21:34 CT ABD & PELVIS: IV Contrast Only Returned. EDMS 22:14 [facility] is Referral Physician. le 22:31 Discontinued lock intact, bleeding controlled, pressure dressing applied, No tm5 redness/swelling at site. No procedures done that require assistance. 06/29 09:36 T-Sheet-- Draft Copy was scanned into [employer]version [employer] and attached to record. [facility] Administered Medications: 06/28 18:46 Drug: NS 0.9% 1000 ml [sodium chloride 0.9 % intravenous solution] Route: IV; Rate: hs1 bolus; Site: right antecubital; 18:46 Drug: Ondansetron 4 mg [ondansetron HCl 2 mg/mL intravenous solution (2 mL)] Route: hs1 IVP; Site: right antecubital; 19:33 Follow up: Response: Nausea is resolved; No Adverse Reaction tm5 18:46 Drug: morphine 4 mg [morphine 4 mg/mL intravenous cartridge (1 mL)] Route: IVP; Site: hs1 right antecubital; 19:25 Drug: morphine 4 mg [morphine 4 mg/mL intravenous cartridge (1 mL)] Route: IVP; Site: tm5 right antecubital; 19:50 Follow up: Response: No Adverse Reaction; No significant change.; Pain is unchanged, tm5 physician notified 20:20 Not Given (Patient Refused; pt states GI cocktails make her vomit, INVESTMENTS MANAGER aware): GI tm5 Cocktail - (Alum-Mag Hydroxide-Simeth Suspension 225 mg-200 mg-25 mg/5 mL 30 ml, Lidocaine Liquid 2 % 10 ml, Hyoscyamine Liquid 10 ml) PO once; Pre-mixed 50mL unit dose 21:03 Drug: NS 0.9% 1000 ml [sodium chloride 0.9 % intravenous solution] Route: IV; Rate: 100 tm5 mL/hr; Site: right antecubital; 21:34 Drug: Sucralfate 1 grams [sucralfate 1 gram tablet (1 tabs)] Route: PO; tm5 Order Results: Lab Order: Basic Metabolic Profile; SPEC'M 06/28/16 18:24 Test: GLUCOSE, FASTING; Value: 91; Range: 70-105; Units: MG/DL; Status: F Test: BLOOD UREA NITROGEN; Value: 8; Range: 7-18; Units: MG/DL; Status: F Test: CREATININE FOR GFR; Value: 0.62; Range: 0.55-1.02; Units: MG/DL; Status: F Test: GLOMERULAR FILTRATION RATE; Value: > 60.0; Range: >60; Status: F Test: SODIUM LEVEL; Value: 141; Range: 136-145; Units: MEQ/L; Status: F Test: POTASSIUM SERUM; Value: 3.8; Range: 3.5-5.1; Units: MEQ/L; Status: F Test: CHLORIDE LEVEL; Value: 103; Range: 98-107; Units: MEQ/L; Status: F Test: CARBON DIOXIDE LEVEL; Value: 30; Range: 21-32; Units: MEQ/L; Status: F Test: ANION GAP; Value: 8; Range: 8-16; Units: MEQ/L; Status: F Test: CALCIUM LEVEL; Value: 8.4; Range: 8.5-10.1; Abnormal: Below low normal; Units: MG/DL; Status: F Test Note: ; Units are mL/min/1.73 m2 Chronic Kidney Disease Staging per NKF: Stage I & II GFR >=60 Normal to Mildly Decreased Stage III GFR 30-59 Moderately Decreased Stage IV GFR 15-29 Severely Decreased Stage V GFR <15 Very Little GFR Left ESRD GFR <15 on STOCK SHAPER Lab Order: CBC with Diff; SPEC'M 06/28/16 18:24 Test: WHITE BLOOD COUNT; Value: 9.6; Range: 4.0-10.0; Units: K/mm3; Status: F Test: RED BLOOD COUNT; Value: 4.40; Range: 4.00-5.40; Units: M/mm3; Status: F Test: HEMOGLOBIN; Value: 11.0; Range: 12.0-16.0; Abnormal: Below low normal; Units: g/dl; Status: F Test: HEMATOCRIT; Value: 34.8; Range: 36.0-47.0; Abnormal: Below low normal; Units: %; Status: F Test: MEAN CORPUSCULAR VOLUME; Value: 79.2; Range: 80.0-96.0; Abnormal: Below low normal; Units: fl; Status: F Test: MEAN CORPUSCULAR HEMOGLOBIN; Value: 25.1; Range: 27.0-33.0; Abnormal: Below low normal; Units: pg; Status: F Test: MEAN CORPUSCULAR HGB CONC; Value: 31.7; Range: 32.0-36.5; Abnormal: Below low normal; Units: g/dl; Status: F Test: RED CELL DISTRIBUTION WIDTH; Value: 16.1; Range: 11.5-14.5; Abnormal: Above high normal; Units: %; Status: F Test: PLATELET COUNT, AUTOMATED; Value: 336; Range: 150-450; Units: k/mm3; Status: F Test: NEUTROPHILS %; Value: 56.6; Range: 36.0-66.0; Units: %; Status: F Test: LYMPH %; Value: 34.0; Range: 24.0-44.0; Units: %; Status: F Test: MONO %; Value: 2.6; Range: 0.0-5.0; Units: %; Status: F Test: EOS %; Value: 4.2; Range: 0.0-3.0; Abnormal: Above high normal; Units: %; Status: F Test: BASO %; Value: 0.4; Range: 0.0-1.0; Units: %; Status: F Test: LARGE UNSTAINED CELL %; Value: 2.0; Range: 0.0-4.0; Units: %; Status: F Test: NEUTROPHILS #; Value: 5.5; Range: 1.8-7.7; Units: K/mm3; Status: F Test: LYMPH #; Value: 3.3; Range: 1.5-6.5; Units: K/mm3; Status: F Test: MONO #; Value: 0.3; Range: 0.0-0.8; Units: K/mm3; Status: F Test: EOS #; Value: 0.4; Range: 0.0-0.50; Units: K/mm3; Status: F Test: BASO #; Value: 0.0; Range: 0.0-0.2; Units: K/mm3; Status: F Test: LARGE UNSTAINED CELL #; Value: 0.2; Range: 0.0-0.4; Units: K/mm3; Status: F Lab Order: Lipase; SPEC'M 06/28/16 18:24 Test: LIPASE; Value: 185; Range: 73-393; Units: U/L; Status: F Lab Order: Liver Profile; SPEC'M 06/28/16 18:24 Test: AST/SGOT; Value: 10; Range: 15-37; Abnormal: Below low normal; Units: U/L; Status: F Test: ALT/SGPT; Value: 20; Range: 12-78; Units: U/L; Status: F Test: ALKALINE PHOSPHATASE; Value: 103; Range: 45-117; Units: U/L; Status: F Test: BILIRUBIN,TOTAL; Value: 0.1; Range: 0.2-1.0; Abnormal: Below low normal; Units: MG/DL; Status: F Test: BILIRUBIN,DIRECT; Value: < 0.1; Range: 0.0-0.2; Units: MG/DL; Status: F Test: TOTAL PROTEIN; Value: 6.9; Range: 6.4-8.2; Units: GM/DL; Status: F Test: ALBUMIN; Value: 3.1; Range: 3.2-5.2; Abnormal: Below low normal; Units: GM/DL; Status: F Test: ALBUMIN/GLOBULIN RATIO; Value: 0.82; Range: 1.00-1.93; Abnormal: Below low normal; Status: F Lab Order: Hcg, Serum Quantitative; SPEC'M 06/28/16 18:24 Test: HCG, SERUM QUANTITATIVE; Value: < 1.0; Units: MIU/ML; Status: F Test Note: ; GESTATIONAL AGE APPROXIMATE HCG RANGE (MIU/ML) 0.2-1 WEEK 5-50 1-2 WEEKS 50-500 2-3 WEEKS 100-5,000 3-4 WEEKS 500-10,000 4-5 WEEKS 1,000-50,000 5-6 WEEKS 10,000-100,000 6-8 WEEKS 15,000-200,000 2-3 MONTHS 10,000-100,000 NON FEMALES LESS THAN 3.0 Patient samples may contain human heterophilic antibodies that could react with immunoassays to give falsely elevated or depressed results. This assay has been designed to minimize interference from heterophilic antibodies. Elevated hCG levels have also been associated with trophoblastic disease and nontrophoblastic neoplasms. The possibility of having these diseases should be considered before a diagnosis of is made. This test is not intended for use as a surrogate marker for aiding in the diagnosis or monitoring the treatment of cancer patients. Siemens NovaSom methodology. Lab Order: UA; SPEC'M 06/28/16 19:26 Test: APPEARANCE, URINE; Value: CLEAR; Range: CLEAR; Status: F Test: COLOR, URINE; Value: YELLOW; Range: YELLOW; Status: F Test: PH,URINE; Value: 7.0; Range: 5.0-9.0; Units: UNITS; Status: F Test: SPECIFIC GRAVITY URINE AUTO; Value: 1.013; Range: 1.002-1.035; Status: F Test: PROTEIN, URINE AUTO; Value: NEGATIVE; Range: NEGATIVE; Units: mg/dL; Status: F Test: GLUCOSE, URINE (UA) AUTO; Value: NEGATIVE; Range: NEGATIVE; Units: mg/dL; Status: F Test: KETONE, URINE AUTO; Value: NEGATIVE; Range: NEGATIVE; Units: mg/dL; Status: F Test: UROBILINOGEN, URINE AUTO; Value: 0.2; Range: 0.0-2.0; Units: mg/dL; Status: F Test: BILIRUBIN, URINE AUTO; Value: NEGATIVE; Range: NEGATIVE; Status: F Test: NITRITE, URINE AUTO; Value: NEGATIVE; Range: NEGATIVE; Status: F Test: LEUKOCYTE ESTERASE, URINE AUTO; Value: NEGATIVE; Range: NEGATIVE; Status: F Test: BLOOD, URINE BLOOD; Value: NEGATIVE; Range: NEGATIVE; Status: F Test: WBC, URINE AUTO; Value: 2; Range: 0-3; Units: /HPF; Status: F Test: RBC, URINE AUTO; Value: 1; Range: 0-3; Units: /HPF; Status: F Test: BACTERIA, URINE AUTO; Value: 1+; Range: NEGATIVE; Abnormal: Above high normal; Status: F Test: SQUAMOUS EPITHELIAL CELL UR AU; Value: 1; Range: 0-6; Units: /HPF; Status: F Test: HYALINE CAST, URINE AUTO; Value: 0; Range: 0-1; Units: /LPF; Status: F Radiology Order: CT ABD & PELVIS: IV Contrast Only Test: CT ABD & PELVIS: IV Contrast Only REASON FOR EXAMINATION: Abdomen Pain; Clinical: Acute abdominal pain.; ; Technique: Axial contrast enhanced images from the lung bases to the pubic; symphysis using 100 ml Isovue 370 intravenous contrast material with coronal and; sagittal re-formations.; ; Comparison: 02/24/2016.; ; Findings:; Trace left lower lobe and lingular atelectasis.; ; Liver, spleen, pancreas, bilateral adrenal glands and kidneys are normal. The; patient is status post cholecystectomy. The enteric system is without; obstruction or acute inflammatory process and a normal terminal ileum and; appendix are identified in the right lower quadrant.; ; Pelvis demonstrates normal bladder and age-appropriate uterus/ left adnexa. 5 cm; right ovarian cyst identified, likely physiologic in possibly related to; patient's symptoms. No pelvic fluid or ascites. No intraperitoneal or; retroperitoneal adenopathy. No free air. Vasculature appears grossly normal.; Surrounding musculoskeletal structures are intact.; ; Impression:; Trace left basilar atelectasis.; 5 cm right ovarian cyst possibly related to patient's symptoms. Consider; ultrasound evaluation in 4-6 weeks to evaluate for resolution.; ; ; Signed by; Oleg Marr MD 06/28/2016 08:36 P; Outcome: 22:14 Discharge ordered by Provider. le 22:31 Discharge Assessment: Patient awake, alert and oriented x 3. No cognitive and/or tm5 functional deficits noted. Patient verbalized understanding of disposition instructions. patient administered narcotics - yes. Pt provided with safe discharge. The following High Risk Discharge criteria are identified: None. Discharged to home ambulatory. Condition: good Condition: stable Condition: improved. Discharge instructions given to patient, Instructed on discharge instructions, follow up and referral plans. medication usage, Demonstrated understanding of instructions, medications, Pt was receptive of discharge instructions/ teaching. Prescriptions given X 1. CT Study completed. Property :Personal belongings accompany Pt. 22:32 Patient left the ED. tm5 Signatures: Dispatcher [employer] EDMS Toña Montgomery, Blow Mold Technician Unit deg Baldomero Thornton, RN Nichole Staples Lisa, BEESWAX BLEACHER BEESWAX BLEACHER Mary Kat RN RN hs1 Carol Farnsworth Tonya, RN RN tm5 Chart Complete MTDD
--- NOTE | 2016-07-01 20:32 | EDDOCDS ---
Nurse's Notes [facility] Name: Katie Busby Age: 25 yrs Sex: Female : 1990 Arrival Date: 06/28/2016 Time: 18:00 Bed 13 Private MD: Diagnosis: Acute gastritis Presentation: 06/28 18:07 Presenting complaint: Patient states: epigastric pain for the last hour. had dy at home and was not seen for it by PORTABLE CANTEEN OPERATOR or PCP. Risk factors: the patient reports no vaginal bleeding. Adult Sepsis Screening: Suicide/Homicide risk assessment- the patient denies having any suicidal and/or homicidal ideations and does not present with any other emotional, behavioral or mental health complaints. 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 Transition of care: patient was not received from another setting of care. 18:07 Acuity: SHELBY Level 3 dy 18:07 Method Of Arrival: Ambulance dy 18:15 Adult Sepsis Screening: The patient does not have new or worsening altered mentation. dy Patient's respiratory rate is less than 22. Systolic blood pressure is greater than 100. Patient has a qSOFA score of 0- Negative Sepsis Screen. Triage Assessment: 18:10 General: Appears in no apparent distress. Pain: Location: epigastric area. HIV dy screening NA for this visit Offered previously. GI: Reports epigastric pain. PORTABLE CANTEEN OPERATOR: 18:15 LMP N/A - recent miscarriage dy Historical: - Allergies: NSAIDS; Reglan (Anxiety); Robaxin (Hives)panic attack; SULFA (SULFONAMIDES) (Unknown, Hives); - Home Meds: 1. clonidine HCl 0.2 mg Oral tab 1 tab 2 times per day 2. Paxil 60mg Oral tab 1 tab once daily 3. omeprazole 40 mg Oral cpDR 1 cap once daily - PMHx: Adenomyosis; Anemia; Anxiety; chronic pelvic pain; Depression; ectopic ; Fibromyalgia; GERD; Pancreatitis; PCOS; - PSHx: Tonsillectomy; ; Cholecystectomy; - Social history: No barriers to communication noted, The patient speaks fluent Czech, Speaks appropriately for age, Smoking status: . - Family history: Not pertinent. - : The pt / caregiver states he / she is not on anticoagulants. Home medication list is obtained from the patient. - Exposure Risk Screening:: None identified. Screenin:01 Infection Control. deg 18:47 Screening information is obtained from the patient. Fall risk: No risks identified. hs1 Assistance ADL's: requires no assistance with activities of daily living. Abuse/DV Screen: The patient / caregiver reports he/she is: not in a situation that causes fear, pain or injury. Nutritional screening: No deficits noted. Advance Directives: There is no active DNR order. home support is adequate. Assessment: 18:30 General: Appears in no apparent distress, Behavior is appropriate for age, cooperative. hs1 Pain: Location: abdomen Pain currently is 10 out of 10 on a pain scale. Cardiovascular: Rhythm is sinus tachycardia. Respiratory: Airway is patent. GI: Abdomen is obese, Bowel sounds present X 4 quads. Abd is soft Abd is tender to palpation X 4 quads. Derm: Skin is pink, warm & dry. normal. 19:30 Reassessment: Patient appears in no apparent distress at this time. Patient states tm5 symptoms have not improved. 1st contact with pt in Room 13, complains of lower abdominal pain at this time, states that pain wasn't any better after the 1st dose of Morphine states "Morphine isn't working for me", ASHKAN Sanches aware of this . 20:20 Reassessment: Patient states symptoms have not improved. pt refuses to take GI Cocktail tm5 states "they make me vomit", ASHKAN Sanches aware of this, still complains of 9/10 lower abdominal pain. 20:55 Reassessment: Patient appears in no apparent distress at this time. Patient states tm5 symptoms have not improved. 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 22:31 Reassessment: Patient appears in no apparent distress at this time. Patient denies pain tm5 at this time. Patient states feeling better. Patient states symptoms have improved. Vital Signs: 18:12 BP 103 / 76 (auto/); tm5 18:15 BP 103 / 76; Pulse 119; Resp 18; Temp 96.3(T); Pulse Ox 96% on R/A; Weight 131.54 kg dy (R); Height 5 ft. 7 in. (170.18 cm) (R); Pain 10/10; 18:15 Pulse 112 MON; Pulse Ox 97% ; tm5 18:32 BP 116 / 84 (auto/); tm5 18:33 Pulse 106 MON; Pulse Ox 97% on R/A; tm5 19:15 BP 118 / 54; Pulse 74; Resp 18; Pulse Ox 99% on R/A; Pain 9/10; tm5 21:34 BP 123 / 58; Pulse 78; Resp 18; Temp 98.6(O); Pulse Ox 99% on R/A; Pain 7/10; tm5 22:31 BP 118 / 56; Pulse 78; Resp 20; Temp 98.0(O); Pulse Ox 99% on R/A; Pain 0/10; tm5 18:15 Body Mass Index 45.42 (131.54 kg, 170.18 cm) dy Vitals: 18:15 Log In Time N/A - ambulance arrival. dy ED Course: 18:01 Patient visited by Toña Montgomery, Cleaners. deg 18:01 Patient moved to Waiting deg 18:02 Patient moved to 13 deg 18:09 Triage Initiated dy 18:13 [facility]elida Sanches F[facility]. le 18:20 Patient visited by Nelida Sanches FNP. le 18:20 Patient visited by Nelida Sanches FNP. le 18:46 Inserted saline lock: 20 gauge in right antecubital area The patient tolerated the hs1 procedure well. 18:48 The patient / caregiver is instructed regarding the plan of care and ED course. hs1 18:51 Patient visited by Mary Samaniego RN. hs1 19:15 Pulse ox on. NIBP on. tm5 19:30 Patient visited by Angelica Méndez RN. tm5 20:10 Patient visited by Angelica Méndez RN. tm5 20:[address] tm5 20:19 Patient visited by Angelica Méndez RN. tm5 20:19 Patient moved back from [address]. tm5 20:44 [facility] Payment Agreement was scanned into [employer] and attached to record. zo 20:55 Patient visited by Angelica Méndez,NISREEN. tm5 21:02 Patient visited by Angelica Méndez RN. tm5 21:33 Patient visited by Angelica Méndez RN. tm5 21:34 CT ABD & PELVIS: IV Contrast Only Returned. EDMS 22:14 [facility] is Referral Physician. le 22:31 Discontinued lock intact, bleeding controlled, pressure dressing applied, No tm5 redness/swelling at site. No procedures done that require assistance. 06/29 09:36 T-Sheet-- Draft Copy was scanned into [employer] and attached to record. [facility] Administered Medications: 06/28 18:46 Drug: NS 0.9% 1000 ml [sodium chloride 0.9 % intravenous solution] Route: IV; Rate: hs1 bolus; Site: right antecubital; 18:46 Drug: Ondansetron 4 mg [ondansetron HCl 2 mg/mL intravenous solution (2 mL)] Route: hs1 IVP; Site: right antecubital; 19:33 Follow up: Response: Nausea is resolved; No Adverse Reaction tm5 18:46 Drug: morphine 4 mg [morphine 4 mg/mL intravenous cartridge (1 mL)] Route: IVP; Site: hs1 right antecubital; 19:25 Drug: morphine 4 mg [morphine 4 mg/mL intravenous cartridge (1 mL)] Route: IVP; Site: tm5 right antecubital; 19:50 Follow up: Response: No Adverse Reaction; No significant change.; Pain is unchanged, tm5 physician notified 20:20 Not Given (Patient Refused; pt states GI cocktails make her vomit, 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): GI tm5 Cocktail - (Alum-Mag Hydroxide-Simeth Suspension 225 mg-200 mg-25 mg/5 mL 30 ml, Lidocaine Liquid 2 % 10 ml, Hyoscyamine Liquid 10 ml) PO once; Pre-mixed 50mL unit dose 21:03 Drug: NS 0.9% 1000 ml [sodium chloride 0.9 % intravenous solution] Route: IV; Rate: 100 tm5 mL/hr; Site: right antecubital; 21:34 Drug: Sucralfate 1 grams [sucralfate 1 gram tablet (1 tabs)] Route: PO; tm5 Order Results: Lab Order: Basic Metabolic Profile; SPEC'M 06/28/16 18:24 Test: GLUCOSE, FASTING; Value: 91; Range: 70-105; Units: MG/DL; Status: F Test: BLOOD UREA NITROGEN; Value: 8; Range: 7-18; Units: MG/DL; Status: F Test: CREATININE FOR GFR; Value: 0.62; Range: 0.55-1.02; Units: MG/DL; Status: F Test: GLOMERULAR FILTRATION RATE; Value: > 60.0; Range: >60; Status: F Test: SODIUM LEVEL; Value: 141; Range: 136-145; Units: MEQ/L; Status: F Test: POTASSIUM SERUM; Value: 3.8; Range: 3.5-5.1; Units: MEQ/L; Status: F Test: CHLORIDE LEVEL; Value: 103; Range: 98-107; Units: MEQ/L; Status: F Test: CARBON DIOXIDE LEVEL; Value: 30; Range: 21-32; Units: MEQ/L; Status: F Test: ANION GAP; Value: 8; Range: 8-16; Units: MEQ/L; Status: F Test: CALCIUM LEVEL; Value: 8.4; Range: 8.5-10.1; Abnormal: Below low normal; Units: MG/DL; Status: F Test Note: ; Units are mL/min/1.73 m2 Chronic Kidney Disease Staging per NKF: Stage I & II GFR >=60 Normal to Mildly Decreased Stage III GFR 30-59 Moderately Decreased Stage IV GFR 15-29 Severely Decreased Stage V GFR <15 Very Little GFR Left ESRD GFR <15 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 Lab Order: CBC with Diff; SPEC'M 06/28/16 18:24 Test: WHITE BLOOD COUNT; Value: 9.6; Range: 4.0-10.0; Units: K/mm3; Status: F Test: RED BLOOD COUNT; Value: 4.40; Range: 4.00-5.40; Units: M/mm3; Status: F Test: HEMOGLOBIN; Value: 11.0; Range: 12.0-16.0; Abnormal: Below low normal; Units: g/dl; Status: F Test: HEMATOCRIT; Value: 34.8; Range: 36.0-47.0; Abnormal: Below low normal; Units: %; Status: F Test: MEAN CORPUSCULAR VOLUME; Value: 79.2; Range: 80.0-96.0; Abnormal: Below low normal; Units: fl; Status: F Test: MEAN CORPUSCULAR HEMOGLOBIN; Value: 25.1; Range: 27.0-33.0; Abnormal: Below low normal; Units: pg; Status: F Test: MEAN CORPUSCULAR HGB CONC; Value: 31.7; Range: 32.0-36.5; Abnormal: Below low normal; Units: g/dl; Status: F Test: RED CELL DISTRIBUTION WIDTH; Value: 16.1; Range: 11.5-14.5; Abnormal: Above high normal; Units: %; Status: F Test: PLATELET COUNT, AUTOMATED; Value: 336; Range: 150-450; Units: k/mm3; Status: F Test: NEUTROPHILS %; Value: 56.6; Range: 36.0-66.0; Units: %; Status: F Test: LYMPH %; Value: 34.0; Range: 24.0-44.0; Units: %; Status: F Test: MONO %; Value: 2.6; Range: 0.0-5.0; Units: %; Status: F Test: EOS %; Value: 4.2; Range: 0.0-3.0; Abnormal: Above high normal; Units: %; Status: F Test: BASO %; Value: 0.4; Range: 0.0-1.0; Units: %; Status: F Test: LARGE UNSTAINED CELL %; Value: 2.0; Range: 0.0-4.0; Units: %; Status: F Test: NEUTROPHILS #; Value: 5.5; Range: 1.8-7.7; Units: K/mm3; Status: F Test: LYMPH #; Value: 3.3; Range: 1.5-6.5; Units: K/mm3; Status: F Test: MONO #; Value: 0.3; Range: 0.0-0.8; Units: K/mm3; Status: F Test: EOS #; Value: 0.4; Range: 0.0-0.50; Units: K/mm3; Status: F Test: BASO #; Value: 0.0; Range: 0.0-0.2; Units: K/mm3; Status: F Test: LARGE UNSTAINED CELL #; Value: 0.2; Range: 0.0-0.4; Units: K/mm3; Status: F Lab Order: Lipase; SPEC'M 06/28/16 18:24 Test: LIPASE; Value: 185; Range: 73-393; Units: U/L; Status: F Lab Order: Liver Profile; SPEC'M 06/28/16 18:24 Test: AST/SGOT; Value: 10; Range: 15-37; Abnormal: Below low normal; Units: U/L; Status: F Test: ALT/SGPT; Value: 20; Range: 12-78; Units: U/L; Status: F Test: ALKALINE PHOSPHATASE; Value: 103; Range: 45-117; Units: U/L; Status: F Test: BILIRUBIN,TOTAL; Value: 0.1; Range: 0.2-1.0; Abnormal: Below low normal; Units: MG/DL; Status: F Test: BILIRUBIN,DIRECT; Value: < 0.1; Range: 0.0-0.2; Units: MG/DL; Status: F Test: TOTAL PROTEIN; Value: 6.9; Range: 6.4-8.2; Units: GM/DL; Status: F Test: ALBUMIN; Value: 3.1; Range: 3.2-5.2; Abnormal: Below low normal; Units: GM/DL; Status: F Test: ALBUMIN/GLOBULIN RATIO; Value: 0.82; Range: 1.00-1.93; Abnormal: Below low normal; Status: F Lab Order: Hcg, Serum Quantitative; SPEC'M 06/28/16 18:24 Test: HCG, SERUM QUANTITATIVE; Value: < 1.0; Units: MIU/ML; Status: F Test Note: ; GESTATIONAL AGE APPROXIMATE HCG RANGE (MIU/ML) 0.2-1 WEEK 5-50 1-2 WEEKS 50-500 2-3 WEEKS 100-5,000 3-4 WEEKS 500-10,000 4-5 WEEKS 1,000-50,000 5-6 WEEKS 10,000-100,000 6-8 WEEKS 15,000-200,000 2-3 MONTHS 10,000-100,000 NON FEMALES LESS THAN 3.0 Patient samples may contain human heterophilic antibodies that could react with immunoassays to give falsely elevated or depressed results. This assay has been designed to minimize interference from heterophilic antibodies. Elevated hCG levels have also been associated with trophoblastic disease and nontrophoblastic neoplasms. The possibility of having these diseases should be considered before a diagnosis of is made. This test is not intended for use as a surrogate marker for aiding in the diagnosis or monitoring the treatment of cancer patients. [employer] methodology. Lab Order: UA; SPEC'M 06/28/16 19:26 Test: APPEARANCE, URINE; Value: CLEAR; Range: CLEAR; Status: F Test: COLOR, URINE; Value: YELLOW; Range: YELLOW; Status: F Test: PH,URINE; Value: 7.0; Range: 5.0-9.0; Units: UNITS; Status: F Test: SPECIFIC GRAVITY URINE AUTO; Value: 1.013; Range: 1.002-1.035; Status: F Test: PROTEIN, URINE AUTO; Value: NEGATIVE; Range: NEGATIVE; Units: mg/dL; Status: F Test: GLUCOSE, URINE (UA) AUTO; Value: NEGATIVE; Range: NEGATIVE; Units: mg/dL; Status: F Test: KETONE, URINE AUTO; Value: NEGATIVE; Range: NEGATIVE; Units: mg/dL; Status: F Test: UROBILINOGEN, URINE AUTO; Value: 0.2; Range: 0.0-2.0; Units: mg/dL; Status: F Test: BILIRUBIN, URINE AUTO; Value: NEGATIVE; Range: NEGATIVE; Status: F Test: NITRITE, URINE AUTO; Value: NEGATIVE; Range: NEGATIVE; Status: F Test: LEUKOCYTE ESTERASE, URINE AUTO; Value: NEGATIVE; Range: NEGATIVE; Status: F Test: BLOOD, URINE BLOOD; Value: NEGATIVE; Range: NEGATIVE; Status: F Test: WBC, URINE AUTO; Value: 2; Range: 0-3; Units: /HPF; Status: F Test: RBC, URINE AUTO; Value: 1; Range: 0-3; Units: /HPF; Status: F Test: BACTERIA, URINE AUTO; Value: 1+; Range: NEGATIVE; Abnormal: Above high normal; Status: F Test: SQUAMOUS EPITHELIAL CELL UR AU; Value: 1; Range: 0-6; Units: /HPF; Status: F Test: HYALINE CAST, URINE AUTO; Value: 0; Range: 0-1; Units: /LPF; Status: F Radiology Order: CT ABD & PELVIS: IV Contrast Only Test: CT ABD & PELVIS: IV Contrast Only REASON FOR EXAMINATION: Abdomen Pain; Clinical: Acute abdominal pain.; ; Technique: Axial contrast enhanced images from the lung bases to the pubic; symphysis using 100 ml Isovue 370 intravenous contrast material with coronal and; sagittal re-formations.; ; Comparison: 02/24/2016.; ; Findings:; Trace left lower lobe and lingular atelectasis.; ; Liver, spleen, pancreas, bilateral adrenal glands and kidneys are normal. The; patient is status post cholecystectomy. The enteric system is without; obstruction or acute inflammatory process and a normal terminal ileum and; appendix are identified in the right lower quadrant.; ; Pelvis demonstrates normal bladder and age-appropriate uterus/ left adnexa. 5 cm; right ovarian cyst identified, likely physiologic in possibly related to; patient's symptoms. No pelvic fluid or ascites. No intraperitoneal or; retroperitoneal adenopathy. No free air. Vasculature appears grossly normal.; Surrounding musculoskeletal structures are intact.; ; Impression:; Trace left basilar atelectasis.; 5 cm right ovarian cyst possibly related to patient's symptoms. Consider; ultrasound evaluation in 4-6 weeks to evaluate for resolution.; ; ; Signed by; Oleg Marr MD 06/28/2016 08:36 P; Outcome: 22:14 Discharge ordered by Provider. le 22:31 Discharge Assessment: Patient awake, alert and oriented x 3. No cognitive and/or tm5 functional deficits noted. Patient verbalized understanding of disposition instructions. patient administered narcotics - yes. Pt provided with safe discharge. The following High Risk Discharge criteria are identified: None. Discharged to home ambulatory. Condition: good Condition: stable Condition: improved. Discharge instructions given to patient, Instructed on discharge instructions, follow up and referral plans. medication usage, Demonstrated understanding of instructions, medications, Pt was receptive of discharge instructions/ teaching. Prescriptions given X 1. CT Study completed. Property :Personal belongings accompany Pt. 22:32 Patient left the ED. tm5 Signatures: Dispatcher [employer] EDMS Toña Montgomery, Cleaners Unit deg Baldomero Thornton, RN Nichole Staples Lisa, BLENDING COORDINATOR BLENDING COORDINATOR Mary Kat RN RN hs1 Carol Farnsworth Tonya, RN RN tm5 MTDD
--- NOTE | 2016-07-01 20:32 | EDDOCDS ---
Physician Documentation Name: Katie Busby Age: 25 yrs Sex: Female : 1990 Arrival Date: 06/28/2016 Time: 18:00 Bed 13 Private MD: Disposition: 06/28 22:15 Critical Care: Critical care not applicable. elena Disposition: 06/28/16 22:14 Discharged to Home/Self Care. Impression: Acute gastritis. - Condition is Stable. - Discharge Instructions: Gastritis, Adult. - Prescriptions for Carafate 1 gram Oral Tablet - take 1 tablet by ORAL route 4 times per day take on an empty stomach, beginning on waking and last dose at bedtime; 100 tablet. - Medication Reconciliation, Local Pharmacy Hours form. - Follow up: [facility]; When: Call to arrange an appointment; Reason: Recheck today's complaints, Continuance of care. - Problem is new. - Symptoms have improved. - Notes: Keep hydrated Return to the ED for any further concerns Historical: - Allergies: NSAIDS; Reglan (Anxiety); Robaxin (Hives)panic attack; SULFA (SULFONAMIDES) (Unknown, Hives); - Home Meds: 1. clonidine HCl 0.2 mg Oral tab 1 tab 2 times per day 2. Paxil 60mg Oral tab 1 tab once daily 3. omeprazole 40 mg Oral cpDR 1 cap once daily - PMHx: Adenomyosis; Anemia; Anxiety; chronic pelvic pain; Depression; ectopic ; Fibromyalgia; GERD; Pancreatitis; PCOS; - PSHx: Tonsillectomy; ; Cholecystectomy; - Social history: No barriers to communication noted, The patient speaks fluent Vietnamese, Speaks appropriately for age, Smoking status: . - Family history: Not pertinent. - : The pt / caregiver states he / she is not on anticoagulants. Home medication list is obtained from the patient. - Exposure Risk Screening:: None identified. 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 7 in. (170.18 cm) (R); Pain 10/10; 18:15 Pulse 112 MON; Pulse Ox 97% ; tm5 18:32 BP 116 / 84 (auto/); tm5 18:33 Pulse 106 MON; Pulse Ox 97% on R/A; tm5 19:15 BP 118 / 54; Pulse 74; Resp 18; Pulse Ox 99% on R/A; Pain 9/10; tm5 21:34 BP 123 / 58; Pulse 78; Resp 18; Temp 98.6(O); Pulse Ox 99% on R/A; Pain 7/10; tm5 22:31 BP 118 / 56; Pulse 78; Resp 20; Temp 98.0(O); Pulse Ox 99% on R/A; Pain 0/10; tm5 18:15 Body Mass Index 45.42 (131.54 kg, 170.18 cm) dy MDM: 18:20 NS 0.9% 1000 ml IV at bolus once ordered. le 18:20 NS 0.9% 1000 ml IV at 100 mL/hr continuous ordered. le 18:20 Ondansetron 4 mg IVP once ordered. le 18:20 IV Saline Lock ordered. le 18:20 Undress patient appropriately for examination ordered. le 18:20 Basic Metabolic Profile Ordered. EDMS 18:20 CBC with Diff Ordered. EDMS 18:20 Lipase Ordered. EDMS 18:20 Liver Profile Ordered. EDMS 18:20 Hcg, Serum Quantitative Ordered. EDMS 18:20 NOTHING BY MOUTH+DIET ordered. EDMS 18:33 UA Ordered. EDMS 18:41 morphine 4 mg IVP every 15 minutes; Document pain score/vitals after each dose (Hold if le SBP < 90mmHg) x2 ordered. 19:26 Basic Metabolic Profile Reviewed. le 19:26 CBC with Diff Reviewed. le 19:26 Liver Profile Reviewed. le 19:26 Lipase Reviewed. le 19:26 Hcg, Serum Quantitative Reviewed. le 19:30 CT ABD & PELVIS: IV Contrast Only Ordered. EDMS 19:34 GI Cocktail - (Alum-Mag Hydroxide-Simeth 30 ml, Lidocaine 10 ml, Hyoscyamine 10 ml) PO le once; Pre-mixed 50mL unit dose ordered. 20:43 Financial registration complete. zo 20:44 [facility] Payment Agreement was scanned into [employer] and attached to record. zo 21:24 UA Reviewed. le 21:26 Sucralfate 1 grams PO once ordered. le 06/29 09:36 T-Sheet-- Draft Copy was scanned into [employer] and attached to record. [facility] Administered Medications: 06/28 18:46 Drug: NS 0.9% 1000 ml [sodium chloride 0.9 % intravenous solution] Route: IV; Rate: hs1 bolus; Site: right antecubital; 18:46 Drug: Ondansetron 4 mg [ondansetron HCl 2 mg/mL intravenous solution (2 mL)] Route: hs1 IVP; Site: right antecubital; 19:33 Follow up: Response: Nausea is resolved; No Adverse Reaction tm5 18:46 Drug: morphine 4 mg [morphine 4 mg/mL intravenous cartridge (1 mL)] Route: IVP; Site: hs1 right antecubital; 19:25 Drug: morphine 4 mg [morphine 4 mg/mL intravenous cartridge (1 mL)] Route: IVP; Site: tm5 right antecubital; 19:50 Follow up: Response: No Adverse Reaction; No significant change.; Pain is unchanged, tm5 physician notified 20:20 Not Given (Patient Refused; pt states GI cocktails make her vomit, 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 pending sale to [facility] faxed formal report of ct abd/p for [facility]. Signatures: Dispatcher [employer] EDMS Giovany Bunch MD MD ml Youngs, David, RN RN Nichole Matt Lisa, STROKE PROGRAM COORDINATOR STROKE PROGRAM COORDINATOR Carol Kate Tonya, RN RN tm5 Mary Samaniego RN hs1 The chart was reviewed and I authenticate all verbal orders and agree with the evaluation and treatment provided.Attachments: 06/28 20:44 [facility] Payment Agreement zo 06/29 09:36 T-Sheet-- Draft Copy [facility] MTDD
--- NOTE | 2016-07-01 20:32 | EDDOCDS ---
Physician Documentation [facility] Name: Katie Busby Age: 25 yrs Sex: Female : 1990 Arrival Date: 06/28/2016 Time: 18:00 Bed 13 Private MD: Disposition: 06/28 22:15 Critical Care: Critical care not applicable. elena Disposition: 06/28/16 22:14 Discharged to Home/Self Care. Impression: Acute gastritis. - Condition is Stable. - Discharge Instructions: Gastritis, Adult. - Prescriptions for Carafate 1 gram Oral Tablet - take 1 tablet by ORAL route 4 times per day take on an empty stomach, beginning on waking and last dose at bedtime; 100 tablet. - Medication Reconciliation, Local Pharmacy Hours form. - Follow up: [facility] - Adults; When: Call to arrange an appointment; Reason: Recheck today's complaints, Continuance of care. - Problem is new. - Symptoms have improved. - Notes: Keep hydrated Return to the ED for any further concerns Historical: - Allergies: NSAIDS; Reglan (Anxiety); Robaxin (Hives)panic attack; SULFA (SULFONAMIDES) (Unknown, Hives); - Home Meds: 1. clonidine HCl 0.2 mg Oral tab 1 tab 2 times per day 2. Paxil 60mg Oral tab 1 tab once daily 3. omeprazole 40 mg Oral cpDR 1 cap once daily - PMHx: Adenomyosis; Anemia; Anxiety; chronic pelvic pain; Depression; ectopic ; Fibromyalgia; GERD; Pancreatitis; PCOS; - PSHx: Tonsillectomy; ; Cholecystectomy; - Social history: No barriers to communication noted, The patient speaks fluent Latvian, Speaks appropriately for age, Smoking status: . - Family history: Not pertinent. - : The pt / caregiver states he / she is not on anticoagulants. Home medication list is obtained from the patient. - Exposure Risk Screening:: None identified. 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 7 in. (170.18 cm) (R); Pain 10/10; 18:15 Pulse 112 MON; Pulse Ox 97% ; tm5 18:32 BP 116 / 84 (auto/); tm5 18:33 Pulse 106 MON; Pulse Ox 97% on R/A; tm5 19:15 BP 118 / 54; Pulse 74; Resp 18; Pulse Ox 99% on R/A; Pain 9/10; tm5 21:34 BP 123 / 58; Pulse 78; Resp 18; Temp 98.6(O); Pulse Ox 99% on R/A; Pain 7/10; tm5 22:31 BP 118 / 56; Pulse 78; Resp 20; Temp 98.0(O); Pulse Ox 99% on R/A; Pain 0/10; tm5 18:15 Body Mass Index 45.42 (131.54 kg, 170.18 cm) dy MDM: 18:20 NS 0.9% 1000 ml IV at bolus once ordered. le 18:20 NS 0.9% 1000 ml IV at 100 mL/hr continuous ordered. le 18:20 Ondansetron 4 mg IVP once ordered. le 18:20 IV Saline Lock ordered. le 18:20 Undress patient appropriately for examination ordered. le 18:20 Basic Metabolic Profile Ordered. EDMS 18:20 CBC with Diff Ordered. EDMS 18:20 Lipase Ordered. EDMS 18:20 Liver Profile Ordered. EDMS 18:20 Hcg, Serum Quantitative Ordered. EDMS 18:20 NOTHING BY MOUTH+DIET ordered. EDMS 18:33 UA Ordered. EDMS 18:41 morphine 4 mg IVP every 15 minutes; Document pain score/vitals after each dose (Hold if le SBP < 90mmHg) x2 ordered. 19:26 Basic Metabolic Profile Reviewed. le 19:26 CBC with Diff Reviewed. le 19:26 Liver Profile Reviewed. le 19:26 Lipase Reviewed. le 19:26 Hcg, Serum Quantitative Reviewed. le 19:30 CT ABD & PELVIS: IV Contrast Only Ordered. EDMS 19:34 GI Cocktail - (Alum-Mag Hydroxide-Simeth 30 ml, Lidocaine 10 ml, Hyoscyamine 10 ml) PO le once; Pre-mixed 50mL unit dose ordered. 20:43 Financial registration complete. zo 20:44 [facility] [place] Agreement was scanned into [employer] and attached to record. zo 21:24 UA Reviewed. le 21:26 Sucralfate 1 grams PO once ordered. le 06/29 09:36 T-Sheet-- Draft Copy was scanned into [employer] and [facility] Administered Medications: 06/28 18:46 Drug: NS 0.9% 1000 ml [sodium chloride 0.9 % intravenous solution] Route: IV; Rate: hs1 bolus; Site: right antecubital; 18:46 Drug: Ondansetron 4 mg [ondansetron HCl 2 mg/mL intravenous solution (2 mL)] Route: hs1 IVP; Site: right antecubital; 19:33 Follow up: Response: Nausea is resolved; No Adverse Reaction tm5 18:46 Drug: morphine 4 mg [morphine 4 mg/mL intravenous cartridge (1 mL)] Route: IVP; Site: hs1 right antecubital; 19:25 Drug: morphine 4 mg [morphine 4 mg/mL intravenous cartridge (1 mL)] Route: IVP; Site: tm5 right antecubital; 19:50 Follow up: Response: No Adverse Reaction; No significant change.; Pain is unchanged, tm5 physician notified 20:20 Not Given (Patient Refused; pt states GI cocktails make her vomit, 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 [facility] faxed formal report of ct abd/p for [facility]. Signatures: Dispatcher [employer] EDMS Giovany Bunch MD MD ml Youngs, David, RN RN Nichole Matt Lisa, AQUATIC DIRECTOR AQUATIC DIRECTOR Carol Kate Tonya, RN RN tm5 Mary Samaniego RN hs1 The chart was reviewed and I authenticate all verbal orders and agree with the evaluation and treatment provided.Attachments: 06/28 20:44 [facility] [place] Agreement zo 06/29 09:36 T-Sheet-- Draft Copy [facility] MTDD
--- NOTE | 2016-07-01 20:33 | EDDOCDS ---
Physician Documentation [facility] Name: Katie Busby Age: 25 yrs Sex: Female : 1990 Arrival Date: 06/28/2016 Time: 18:00 Bed 13 Private MD: Disposition: 06/28 22:15 Critical Care: Critical care not applicable. elena Disposition: 06/28/16 22:14 Discharged to Home/Self Care. Impression: Acute gastritis. - Condition is Stable. - Discharge Instructions: Gastritis, Adult. - Prescriptions for Carafate 1 gram Oral Tablet - take 1 tablet by ORAL route 4 times per day take on an empty stomach, beginning on waking and last dose at bedtime; 100 tablet. - Medication Reconciliation, Local Pharmacy Hours form. - Follow up: [facility] - Adults; When: Call to arrange an appointment; Reason: Recheck today's complaints, Continuance of care. - Problem is new. - Symptoms have improved. - Notes: Keep hydrated Return to the ED for any further concerns Historical: - Allergies: NSAIDS; Reglan (Anxiety); Robaxin (Hives)panic attack; SULFA (SULFONAMIDES) (Unknown, Hives); - Home Meds: 1. clonidine HCl 0.2 mg Oral tab 1 tab 2 times per day 2. Paxil 60mg Oral tab 1 tab once daily 3. omeprazole 40 mg Oral cpDR 1 cap once daily - PMHx: Adenomyosis; Anemia; Anxiety; chronic pelvic pain; Depression; ectopic ; Fibromyalgia; GERD; Pancreatitis; PCOS; - PSHx: Tonsillectomy; ; Cholecystectomy; - Social history: No barriers to communication noted, The patient speaks fluent Bulgarian, Speaks appropriately for age, Smoking status: . - Family history: Not pertinent. - : The pt / caregiver states he / she is not on anticoagulants. Home medication list is obtained from the patient. - Exposure Risk Screening:: None identified. 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 7 in. (170.18 cm) (R); Pain 10/10; 18:15 Pulse 112 MON; Pulse Ox 97% ; tm5 18:32 BP 116 / 84 (auto/); tm5 18:33 Pulse 106 MON; Pulse Ox 97% on R/A; tm5 19:15 BP 118 / 54; Pulse 74; Resp 18; Pulse Ox 99% on R/A; Pain 9/10; tm5 21:34 BP 123 / 58; Pulse 78; Resp 18; Temp 98.6(O); Pulse Ox 99% on R/A; Pain 7/10; tm5 22:31 BP 118 / 56; Pulse 78; Resp 20; Temp 98.0(O); Pulse Ox 99% on R/A; Pain 0/10; tm5 18:15 Body Mass Index 45.42 (131.54 kg, 170.18 cm) dy MDM: 18:20 NS 0.9% 1000 ml IV at bolus once ordered. le 18:20 NS 0.9% 1000 ml IV at 100 mL/hr continuous ordered. le 18:20 Ondansetron 4 mg IVP once ordered. le 18:20 IV Saline Lock ordered. le 18:20 Undress patient appropriately for examination ordered. le 18:20 Basic Metabolic Profile Ordered. EDMS 18:20 CBC with Diff Ordered. EDMS 18:20 Lipase Ordered. EDMS 18:20 Liver Profile Ordered. EDMS 18:20 Hcg, Serum Quantitative Ordered. EDMS 18:20 NOTHING BY MOUTH+DIET ordered. EDMS 18:33 UA Ordered. EDMS 18:41 morphine 4 mg IVP every 15 minutes; Document pain score/vitals after each dose (Hold if le SBP < 90mmHg) x2 ordered. 19:26 Basic Metabolic Profile Reviewed. le 19:26 CBC with Diff Reviewed. le 19:26 Liver Profile Reviewed. le 19:26 Lipase Reviewed. le 19:26 Hcg, Serum Quantitative Reviewed. le 19:30 CT ABD & PELVIS: IV Contrast Only Ordered. EDMS 19:34 GI Cocktail - (Alum-Mag Hydroxide-Simeth 30 ml, Lidocaine 10 ml, Hyoscyamine 10 ml) PO le once; Pre-mixed 50mL unit dose ordered. 20:43 Financial registration complete. zo 20:44 [facility] [place] [facility] Payment Agreement was scanned into [employer] and attached to record. zo 21:24 UA Reviewed. le 21:26 Sucralfate 1 grams PO once ordered. le 06/29 09:36 T-Sheet-- Draft Copy was scanned into [employer] and attached to record. [facility] Administered Medications: 06/28 18:46 Drug: NS 0.9% 1000 ml [sodium chloride 0.9 % intravenous solution] Route: IV; Rate: hs1 bolus; Site: right antecubital; 18:46 Drug: Ondansetron 4 mg [ondansetron HCl 2 mg/mL intravenous solution (2 mL)] Route: hs1 IVP; Site: right antecubital; 19:33 Follow up: Response: Nausea is resolved; No Adverse Reaction tm5 18:46 Drug: morphine 4 mg [morphine 4 mg/mL intravenous cartridge (1 mL)] Route: IVP; Site: hs1 right antecubital; 19:25 Drug: morphine 4 mg [morphine 4 mg/mL intravenous cartridge (1 mL)] Route: IVP; Site: tm5 right antecubital; 19:50 Follow up: Response: No Adverse Reaction; No significant change.; Pain is unchanged, tm5 physician notified 20:20 Not Given (Patient Refused; pt states GI cocktails make her vomit, 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. Signatures: Dispatcher [employer] EDMS Giovany Bunch MD MD ml Youngs, David, RN RN Nichole Matt Lisa, PROGRAM THERAPIST PROGRAM THERAPIST Carol Kate Tonya, RN RN tm5 Mary Samaniego RN hs1 The chart was reviewed and I authenticate all verbal orders and agree with the evaluation and treatment provided.Attachments: 06/28 20:44 [facility] [place] Payment Agreement zo 06/29 09:36 T-Sheet-- Draft Copy [facility] Chart Complete MTDD
--- NOTE | 2016-07-01 20:33 | EDDOCDS ---
Physician Documentation [facility] Name: Katie Busby Age: 25 yrs Sex: Female : 1990 Arrival Date: 06/28/2016 Time: 18:00 Bed 13 Private MD: Disposition: 06/28 22:15 Critical Care: Critical care not applicable. elena Disposition: 06/28/16 22:14 Discharged to Home/Self Care. Impression: Acute gastritis. - Condition is Stable. - Discharge Instructions: Gastritis, Adult. - Prescriptions for Carafate 1 gram Oral Tablet - take 1 tablet by ORAL route 4 times per day take on an empty stomach, beginning on waking and last dose at bedtime; 100 tablet. - Medication Reconciliation, Local Pharmacy Hours form. - Follow up: [facility] - Adults; When: Call to arrange an appointment; Reason: Recheck today's complaints, Continuance of care. - Problem is new. - Symptoms have improved. - Notes: Keep hydrated Return to the ED for any further concerns Historical: - Allergies: NSAIDS; Reglan (Anxiety); Robaxin (Hives)panic attack; SULFA (SULFONAMIDES) (Unknown, Hives); - Home Meds: 1. clonidine HCl 0.2 mg Oral tab 1 tab 2 times per day 2. Paxil 60mg Oral tab 1 tab once daily 3. omeprazole 40 mg Oral cpDR 1 cap once daily - PMHx: Adenomyosis; Anemia; Anxiety; chronic pelvic pain; Depression; ectopic ; Fibromyalgia; GERD; Pancreatitis; PCOS; - PSHx: Tonsillectomy; ; Cholecystectomy; - Social history: No barriers to communication noted, The patient speaks fluent Kinyarwanda, Speaks appropriately for age, Smoking status: . - Family history: Not pertinent. - : The pt / caregiver states he / she is not on anticoagulants. Home medication list is obtained from the patient. - Exposure Risk Screening:: None identified. 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 7 in. (170.18 cm) (R); Pain 10/10; 18:15 Pulse 112 MON; Pulse Ox 97% ; tm5 18:32 BP 116 / 84 (auto/); tm5 18:33 Pulse 106 MON; Pulse Ox 97% on R/A; tm5 19:15 BP 118 / 54; Pulse 74; Resp 18; Pulse Ox 99% on R/A; Pain 9/10; tm5 21:34 BP 123 / 58; Pulse 78; Resp 18; Temp 98.6(O); Pulse Ox 99% on R/A; Pain 7/10; tm5 22:31 BP 118 / 56; Pulse 78; Resp 20; Temp 98.0(O); Pulse Ox 99% on R/A; Pain 0/10; tm5 18:15 Body Mass Index 45.42 (131.54 kg, 170.18 cm) dy MDM: 18:20 NS 0.9% 1000 ml IV at bolus once ordered. le 18:20 NS 0.9% 1000 ml IV at 100 mL/hr continuous ordered. le 18:20 Ondansetron 4 mg IVP once ordered. le 18:20 IV Saline Lock ordered. le 18:20 Undress patient appropriately for examination ordered. le 18:20 Basic Metabolic Profile Ordered. EDMS 18:20 CBC with Diff Ordered. EDMS 18:20 Lipase Ordered. EDMS 18:20 Liver Profile Ordered. EDMS 18:20 Hcg, Serum Quantitative Ordered. EDMS 18:20 NOTHING BY MOUTH+DIET ordered. EDMS 18:33 UA Ordered. EDMS 18:41 morphine 4 mg IVP every 15 minutes; Document pain score/vitals after each dose (Hold if le SBP < 90mmHg) x2 ordered. 19:26 Basic Metabolic Profile Reviewed. le 19:26 CBC with Diff Reviewed. le 19:26 Liver Profile Reviewed. le 19:26 Lipase Reviewed. le 19:26 Hcg, Serum Quantitative Reviewed. le 19:30 CT ABD & PELVIS: IV Contrast Only Ordered. EDMS 19:34 GI Cocktail - (Alum-Mag Hydroxide-Simeth 30 ml, Lidocaine 10 ml, Hyoscyamine 10 ml) PO le once; Pre-mixed 50mL unit dose ordered. 20:43 Financial registration complete. zo 20:44 [facility] [place] Agreement was scanned into [employer] and attached to record. zo 21:24 UA Reviewed. le 21:26 Sucralfate 1 grams PO once ordered. le 06/29 09:36 T-Sheet-- Draft Copy was scanned into [employer] and attached to record. [facility] Administered Medications: 06/28 18:46 Drug: NS 0.9% 1000 ml [sodium chloride 0.9 % intravenous solution] Route: IV; Rate: hs1 bolus; Site: right antecubital; 18:46 Drug: Ondansetron 4 mg [ondansetron HCl 2 mg/mL intravenous solution (2 mL)] Route: hs1 IVP; Site: right antecubital; 19:33 Follow up: Response: Nausea is resolved; No Adverse Reaction tm5 18:46 Drug: morphine 4 mg [morphine 4 mg/mL intravenous cartridge (1 mL)] Route: IVP; Site: hs1 right antecubital; 19:25 Drug: morphine 4 mg [morphine 4 mg/mL intravenous cartridge (1 mL)] Route: IVP; Site: tm5 right antecubital; 19:50 Follow up: Response: No Adverse Reaction; No significant change.; Pain is unchanged, tm5 physician notified 20:20 Not Given (Patient Refused; pt states GI cocktails make her vomit, 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 [facility] faxed formal report of ct abd/p for [facility]. Signatures: Dispatcher [employer] EDMS Giovany Bunch MD MD ml Youngs, David, RN RN Nichole Matt Lisa, HIMS CODER HIMS CODER Carol Kate Tonya, RN RN tm5 Mary Samaniego RN hs1 The chart was reviewed and I authenticate all verbal orders and agree with the evaluation and treatment provided.Attachments: 06/28 20:44 [facility] [place] Agreement zo 06/29 09:36 T-Sheet-- Draft Copy [facility] Chart Complete MTDD
--- NOTE | 2016-07-01 20:33 | EDDOCDS ---
Nurse's Notes [facility] Name: Katie Busby Age: 25 yrs Sex: Female : 1990 Arrival Date: 06/28/2016 Time: 18:00 Bed 13 Private MD: Diagnosis: Acute gastritis Presentation: 06/28 18:07 Presenting complaint: Patient states: epigastric pain for the last hour. had dy at home and was not seen for it by PARTS CHASER or PCP. Risk factors: the patient reports no vaginal bleeding. Adult Sepsis Screening: Suicide/Homicide risk assessment- the patient denies having any suicidal and/or homicidal ideations and does not present with any other emotional, behavioral or mental health complaints. Status: Patient is not a real estate services coordinator or dependent. Transition of care: patient was not received from another setting of care. 18:07 Acuity: SHELBY Level 3 dy 18:07 Method Of Arrival: Ambulance dy 18:15 Adult Sepsis Screening: The patient does not have new or worsening altered mentation. dy Patient's respiratory rate is less than 22. Systolic blood pressure is greater than 100. Patient has a qSOFA score of 0- Negative Sepsis Screen. Triage Assessment: 18:10 General: Appears in no apparent distress. Pain: Location: epigastric area. HIV dy screening NA for this visit Offered previously. GI: Reports epigastric pain. PARTS CHASER: 18:15 LMP N/A - recent miscarriage dy Historical: - Allergies: NSAIDS; Reglan (Anxiety); Robaxin (Hives)panic attack; SULFA (SULFONAMIDES) (Unknown, Hives); - Home Meds: 1. clonidine HCl 0.2 mg Oral tab 1 tab 2 times per day 2. Paxil 60mg Oral tab 1 tab once daily 3. omeprazole 40 mg Oral cpDR 1 cap once daily - PMHx: Adenomyosis; Anemia; Anxiety; chronic pelvic pain; Depression; ectopic ; Fibromyalgia; GERD; Pancreatitis; PCOS; - PSHx: Tonsillectomy; ; Cholecystectomy; - Social history: No barriers to communication noted, The patient speaks fluent Portuguese, Speaks appropriately for age, Smoking status: . - Family history: Not pertinent. - : The pt / caregiver states he / she is not on anticoagulants. Home medication list is obtained from the patient. - Exposure Risk Screening:: None identified. Screenin:01 Infection Control. deg 18:47 Screening information is obtained from the patient. Fall risk: No risks identified. hs1 Assistance ADL's: requires no assistance with activities of daily living. Abuse/DV Screen: The patient / caregiver reports he/she is: not in a situation that causes fear, pain or injury. Nutritional screening: No deficits noted. Advance Directives: There is no active DNR order. home support is adequate. Assessment: 18:30 General: Appears in no apparent distress, Behavior is appropriate for age, cooperative. hs1 Pain: Location: abdomen Pain currently is 10 out of 10 on a pain scale. Cardiovascular: Rhythm is sinus tachycardia. Respiratory: Airway is patent. GI: Abdomen is obese, Bowel sounds present X 4 quads. Abd is soft Abd is tender to palpation X 4 quads. Derm: Skin is pink, warm & dry. normal. 19:30 Reassessment: Patient appears in no apparent distress at this time. Patient states tm5 symptoms have not improved. 1st contact with pt in Room 13, complains of lower abdominal pain at this time, states that pain wasn't any better after the 1st dose of Morphine states "Morphine isn't working for me", ASHKAN Sanches aware of this . 20:20 Reassessment: Patient states symptoms have not improved. pt refuses to take GI Cocktail tm5 states "they make me vomit", ASHKAN Sanches aware of this, still complains of 9/10 lower abdominal pain. 20:55 Reassessment: Patient appears in no apparent distress at this time. Patient states tm5 symptoms have not improved. pt states that "nothing has helped my pain, I need something different & stronger", TOOL AND DIE SUPERVISOR aware . 22:31 Reassessment: Patient appears in no apparent distress at this time. Patient denies pain tm5 at this time. Patient states feeling better. Patient states symptoms have improved. Vital Signs: 18:12 BP 103 / 76 (auto/); tm5 18:15 BP 103 / 76; Pulse 119; Resp 18; Temp 96.3(T); Pulse Ox 96% on R/A; Weight 131.54 kg dy (R); Height 5 ft. 7 in. (170.18 cm) (R); Pain 10/10; 18:15 Pulse 112 MON; Pulse Ox 97% ; tm5 18:32 BP 116 / 84 (auto/); tm5 18:33 Pulse 106 MON; Pulse Ox 97% on R/A; tm5 19:15 BP 118 / 54; Pulse 74; Resp 18; Pulse Ox 99% on R/A; Pain 9/10; tm5 21:34 BP 123 / 58; Pulse 78; Resp 18; Temp 98.6(O); Pulse Ox 99% on R/A; Pain 7/10; tm5 22:31 BP 118 / 56; Pulse 78; Resp 20; Temp 98.0(O); Pulse Ox 99% on R/A; Pain 0/10; tm5 18:15 Body Mass Index 45.42 (131.54 kg, 170.18 cm) dy Vitals: 18:15 Log In Time N/A - ambulance arrival. dy ED Course: 18:01 Patient visited by Toña Montgomery, Inspector Floor Sub Assembly. deg 18:01 Patient moved to Waiting deg 18:02 Patient moved to 13 deg 18:09 Triage Initiated dy 18:13 [facility] le 18:20 Patient visited by Nelida Sanches FNP. le 18:20 Patient visited by Nelida Sanches FNP. le 18:46 Inserted saline lock: 20 gauge in right antecubital area The patient tolerated the hs1 procedure well. 18:48 The patient / caregiver is instructed regarding the plan of care and ED course. hs1 18:51 Patient visited by Mary Samaniego RN. hs1 19:15 Pulse ox on. NIBP on. tm5 19:30 Patient visited by Angelica Méndez RN. tm5 20:10 Patient visited by Angelica Méndez RN. tm5 20:[address] tm5 20:19 Patient visited by Angelica Méndez RN. tm5 20:19 Patient moved back from CT. tm5 20:44 [place] [place] into [employer] and attached to record. zo 20:55 Patient visited by Angelica Méndez,NISREEN. tm5 21:02 Patient visited by Angelica Méndez RN. tm5 21:33 Patient visited by Angelica Méndez RN. tm5 21:34 CT ABD & PELVIS: IV Contrast Only Returned. EDMS 22:14 [facility] is Referral Physician. le 22:31 Discontinued lock intact, bleeding controlled, pressure dressing applied, No tm5 redness/swelling at site. No procedures done that require assistance. 06/29 09:36 T-Sheet-- Draft Copy was scanned into [employer] and attached to record. [facility] Administered Medications: 06/28 18:46 Drug: NS 0.9% 1000 ml [sodium chloride 0.9 % intravenous solution] Route: IV; Rate: hs1 bolus; Site: right antecubital; 18:46 Drug: Ondansetron 4 mg [ondansetron HCl 2 mg/mL intravenous solution (2 mL)] Route: hs1 IVP; Site: right antecubital; 19:33 Follow up: Response: Nausea is resolved; No Adverse Reaction tm5 18:46 Drug: morphine 4 mg [morphine 4 mg/mL intravenous cartridge (1 mL)] Route: IVP; Site: hs1 right antecubital; 19:25 Drug: morphine 4 mg [morphine 4 mg/mL intravenous cartridge (1 mL)] Route: IVP; Site: tm5 right antecubital; 19:50 Follow up: Response: No Adverse Reaction; No significant change.; Pain is unchanged, tm5 physician notified 20:20 Not Given (Patient Refused; pt states GI cocktails make her vomit, TOOL AND DIE SUPERVISOR aware): GI tm5 Cocktail - (Alum-Mag Hydroxide-Simeth Suspension 225 mg-200 mg-25 mg/5 mL 30 ml, Lidocaine Liquid 2 % 10 ml, Hyoscyamine Liquid 10 ml) PO once; Pre-mixed 50mL unit dose 21:03 Drug: NS 0.9% 1000 ml [sodium chloride 0.9 % intravenous solution] Route: IV; Rate: 100 tm5 mL/hr; Site: right antecubital; 21:34 Drug: Sucralfate 1 grams [sucralfate 1 gram tablet (1 tabs)] Route: PO; tm5 Order Results: Lab Order: Basic Metabolic Profile; SPEC'M 06/28/16 18:24 Test: GLUCOSE, FASTING; Value: 91; Range: 70-105; Units: MG/DL; Status: F Test: BLOOD UREA NITROGEN; Value: 8; Range: 7-18; Units: MG/DL; Status: F Test: CREATININE FOR GFR; Value: 0.62; Range: 0.55-1.02; Units: MG/DL; Status: F Test: GLOMERULAR FILTRATION RATE; Value: > 60.0; Range: >60; Status: F Test: SODIUM LEVEL; Value: 141; Range: 136-145; Units: MEQ/L; Status: F Test: POTASSIUM SERUM; Value: 3.8; Range: 3.5-5.1; Units: MEQ/L; Status: F Test: CHLORIDE LEVEL; Value: 103; Range: 98-107; Units: MEQ/L; Status: F Test: CARBON DIOXIDE LEVEL; Value: 30; Range: 21-32; Units: MEQ/L; Status: F Test: ANION GAP; Value: 8; Range: 8-16; Units: MEQ/L; Status: F Test: CALCIUM LEVEL; Value: 8.4; Range: 8.5-10.1; Abnormal: Below low normal; Units: MG/DL; Status: F Test Note: ; Units are mL/min/1.73 m2 Chronic Kidney Disease Staging per NKF: Stage I & II GFR >=60 Normal to Mildly Decreased Stage III GFR 30-59 Moderately Decreased Stage IV GFR 15-29 Severely Decreased Stage V GFR <15 Very Little GFR Left ESRD GFR <15 on CLINICAL TRIAL ASSOCIATE Lab Order: CBC with Diff; SPEC'M 06/28/16 18:24 Test: WHITE BLOOD COUNT; Value: 9.6; Range: 4.0-10.0; Units: K/mm3; Status: F Test: RED BLOOD COUNT; Value: 4.40; Range: 4.00-5.40; Units: M/mm3; Status: F Test: HEMOGLOBIN; Value: 11.0; Range: 12.0-16.0; Abnormal: Below low normal; Units: g/dl; Status: F Test: HEMATOCRIT; Value: 34.8; Range: 36.0-47.0; Abnormal: Below low normal; Units: %; Status: F Test: MEAN CORPUSCULAR VOLUME; Value: 79.2; Range: 80.0-96.0; Abnormal: Below low normal; Units: fl; Status: F Test: MEAN CORPUSCULAR HEMOGLOBIN; Value: 25.1; Range: 27.0-33.0; Abnormal: Below low normal; Units: pg; Status: F Test: MEAN CORPUSCULAR HGB CONC; Value: 31.7; Range: 32.0-36.5; Abnormal: Below low normal; Units: g/dl; Status: F Test: RED CELL DISTRIBUTION WIDTH; Value: 16.1; Range: 11.5-14.5; Abnormal: Above high normal; Units: %; Status: F Test: PLATELET COUNT, AUTOMATED; Value: 336; Range: 150-450; Units: k/mm3; Status: F Test: NEUTROPHILS %; Value: 56.6; Range: 36.0-66.0; Units: %; Status: F Test: LYMPH %; Value: 34.0; Range: 24.0-44.0; Units: %; Status: F Test: MONO %; Value: 2.6; Range: 0.0-5.0; Units: %; Status: F Test: EOS %; Value: 4.2; Range: 0.0-3.0; Abnormal: Above high normal; Units: %; Status: F Test: BASO %; Value: 0.4; Range: 0.0-1.0; Units: %; Status: F Test: LARGE UNSTAINED CELL %; Value: 2.0; Range: 0.0-4.0; Units: %; Status: F Test: NEUTROPHILS #; Value: 5.5; Range: 1.8-7.7; Units: K/mm3; Status: F Test: LYMPH #; Value: 3.3; Range: 1.5-6.5; Units: K/mm3; Status: F Test: MONO #; Value: 0.3; Range: 0.0-0.8; Units: K/mm3; Status: F Test: EOS #; Value: 0.4; Range: 0.0-0.50; Units: K/mm3; Status: F Test: BASO #; Value: 0.0; Range: 0.0-0.2; Units: K/mm3; Status: F Test: LARGE UNSTAINED CELL #; Value: 0.2; Range: 0.0-0.4; Units: K/mm3; Status: F Lab Order: Lipase; SPEC'M 06/28/16 18:24 Test: LIPASE; Value: 185; Range: 73-393; Units: U/L; Status: F Lab Order: Liver Profile; SPEC'M 06/28/16 18:24 Test: AST/SGOT; Value: 10; Range: 15-37; Abnormal: Below low normal; Units: U/L; Status: F Test: ALT/SGPT; Value: 20; Range: 12-78; Units: U/L; Status: F Test: ALKALINE PHOSPHATASE; Value: 103; Range: 45-117; Units: U/L; Status: F Test: BILIRUBIN,TOTAL; Value: 0.1; Range: 0.2-1.0; Abnormal: Below low normal; Units: MG/DL; Status: F Test: BILIRUBIN,DIRECT; Value: < 0.1; Range: 0.0-0.2; Units: MG/DL; Status: F Test: TOTAL PROTEIN; Value: 6.9; Range: 6.4-8.2; Units: GM/DL; Status: F Test: ALBUMIN; Value: 3.1; Range: 3.2-5.2; Abnormal: Below low normal; Units: GM/DL; Status: F Test: ALBUMIN/GLOBULIN RATIO; Value: 0.82; Range: 1.00-1.93; Abnormal: Below low normal; Status: F Lab Order: Hcg, Serum Quantitative; SPEC'M 06/28/16 18:24 Test: HCG, SERUM QUANTITATIVE; Value: < 1.0; Units: MIU/ML; Status: F Test Note: ; GESTATIONAL AGE APPROXIMATE HCG RANGE (MIU/ML) 0.2-1 WEEK 5-50 1-2 WEEKS 50-500 2-3 WEEKS 100-5,000 3-4 WEEKS 500-10,000 4-5 WEEKS 1,000-50,000 5-6 WEEKS 10,000-100,000 6-8 WEEKS 15,000-200,000 2-3 MONTHS 10,000-100,000 NON FEMALES LESS THAN 3.0 Patient samples may contain human heterophilic antibodies that could react with immunoassays to give falsely elevated or depressed results. This assay has been designed to minimize interference from heterophilic antibodies. Elevated hCG levels have also been associated with trophoblastic disease and nontrophoblastic neoplasms. The possibility of having these diseases should be considered before a diagnosis of is made. This test is not intended for use as a surrogate marker for aiding in the diagnosis or monitoring the treatment of cancer patients. [employer] [place] methodology. Lab Order: UA; SPEC'M 06/28/16 19:26 Test: APPEARANCE, URINE; Value: CLEAR; Range: CLEAR; Status: F Test: COLOR, URINE; Value: YELLOW; Range: YELLOW; Status: F Test: PH,URINE; Value: 7.0; Range: 5.0-9.0; Units: UNITS; Status: F Test: SPECIFIC GRAVITY URINE AUTO; Value: 1.013; Range: 1.002-1.035; Status: F Test: PROTEIN, URINE AUTO; Value: NEGATIVE; Range: NEGATIVE; Units: mg/dL; Status: F Test: GLUCOSE, URINE (UA) AUTO; Value: NEGATIVE; Range: NEGATIVE; Units: mg/dL; Status: F Test: KETONE, URINE AUTO; Value: NEGATIVE; Range: NEGATIVE; Units: mg/dL; Status: F Test: UROBILINOGEN, URINE AUTO; Value: 0.2; Range: 0.0-2.0; Units: mg/dL; Status: F Test: BILIRUBIN, URINE AUTO; Value: NEGATIVE; Range: NEGATIVE; Status: F Test: NITRITE, URINE AUTO; Value: NEGATIVE; Range: NEGATIVE; Status: F Test: LEUKOCYTE ESTERASE, URINE AUTO; Value: NEGATIVE; Range: NEGATIVE; Status: F Test: BLOOD, URINE BLOOD; Value: NEGATIVE; Range: NEGATIVE; Status: F Test: WBC, URINE AUTO; Value: 2; Range: 0-3; Units: /HPF; Status: F Test: RBC, URINE AUTO; Value: 1; Range: 0-3; Units: /HPF; Status: F Test: BACTERIA, URINE AUTO; Value: 1+; Range: NEGATIVE; Abnormal: Above high normal; Status: F Test: SQUAMOUS EPITHELIAL CELL UR AU; Value: 1; Range: 0-6; Units: /HPF; Status: F Test: HYALINE CAST, URINE AUTO; Value: 0; Range: 0-1; Units: /LPF; Status: F Radiology Order: CT ABD & PELVIS: IV Contrast Only Test: CT ABD & PELVIS: IV Contrast Only REASON FOR EXAMINATION: Abdomen Pain; Clinical: Acute abdominal pain.; ; Technique: Axial contrast enhanced images from the lung bases to the pubic; symphysis using 100 ml Isovue 370 intravenous contrast material with coronal and; sagittal re-formations.; ; Comparison: 02/24/2016.; ; Findings:; Trace left lower lobe and lingular atelectasis.; ; Liver, spleen, pancreas, bilateral adrenal glands and kidneys are normal. The; patient is status post cholecystectomy. The enteric system is without; obstruction or acute inflammatory process and a normal terminal ileum and; appendix are identified in the right lower quadrant.; ; Pelvis demonstrates normal bladder and age-appropriate uterus/ left adnexa. 5 cm; right ovarian cyst identified, likely physiologic in possibly related to; patient's symptoms. No pelvic fluid or ascites. No intraperitoneal or; retroperitoneal adenopathy. No free air. Vasculature appears grossly normal.; Surrounding musculoskeletal structures are intact.; ; Impression:; Trace left basilar atelectasis.; 5 cm right ovarian cyst possibly related to patient's symptoms. Consider; ultrasound evaluation in 4-6 weeks to evaluate for resolution.; ; ; Signed by; Oleg Marr MD 06/28/2016 08:36 P; Outcome: 22:14 Discharge ordered by Provider. le 22:31 Discharge Assessment: Patient awake, alert and oriented x 3. No cognitive and/or tm5 functional deficits noted. Patient verbalized understanding of disposition instructions. patient administered narcotics - yes. Pt provided with safe discharge. The following High Risk Discharge criteria are identified: None. Discharged to home ambulatory. Condition: good Condition: stable Condition: improved. Discharge instructions given to patient, Instructed on discharge instructions, follow up and referral plans. medication usage, Demonstrated understanding of instructions, medications, Pt was receptive of discharge instructions/ teaching. Prescriptions given X 1. CT Study completed. Property :Personal belongings accompany Pt. 22:32 Patient left the ED. tm5 Signatures: Dispatcher [employer] EDMS Toña Montgomery, Inspector Floor Sub Assembly Unit deg Baldomero Thornton, RN Nichole Staples Lisa, ORDERING BOX OPERATOR ORDERING BOX OPERATOR Mary Kat RN RN hs1 Carol Farnsworth Tonya, RN RN tm5 Chart Complete MTDD
== END 2016-06-28 22:32 | disposition home or self-care (01) ==
LOC: M ED 18:00
DX: K29.00 Acute gastritis without bleeding (principal); D64.9 Anemia, unspecified; F41.9 Anxiety disorder, unspecified; E28.2 Polycystic ovarian syndrome; F32.9 Major depressive disorder, single episode, unspecified; M79.7 Fibromyalgia; K21.9 Gastro-esophageal reflux disease without esophagitis; N80.0 Endometriosis of uterus; R10.2 Pelvic and perineal pain; G89.29 Other chronic pain; Z87.19 Personal history of other diseases of the digestive system; Z79.899 Other long term (current) drug therapy; Z88.2 Allergy status to sulfonamides; Z88.6 Allergy status to analgesic agent; Z88.8 Allergy status to other drugs, medicaments and biological substances
CPT/HCPCS: 74177; 80048; 80076; 81001; 83690; 84702; 85025; 96374; 96375; 96376; 99285; J2405; Q9967

== ENCOUNTER 2016-07-29 11:34 | Emergency (ER) | payer OTHER ==
[2016-07-29] MEDS ORDERED: ONDANSETRON 4 MG ORAL DISINTEGRATING TAB (S0181) As Ordered ONE (12:15)
[2016-07-29] MEDS ORDERED: KETOROLAC 30 MG/ML VIAL (J1885) As Ordered ONE (12:15)
[2016-07-29 12:18] LABS: CONTROL LINE UCG INT CTR LINE PRESENT
--- NOTE | 2016-07-29 14:40 | EDDOCDS ---
Nurse's Notes [facility] Name: Katie Busby Age: 25 yrs Sex: Female : 1990 Arrival Date: 07/29/2016 Time: 11:34 Bed TR7 Private MD: [facility] Diagnosis: Pelvic and perineal pain;Low back pain Presentation: 07/29 11:43 Presenting complaint: sent to br after reg. [facility] 11:48 Presenting complaint: Patient states: ? kidney stone. left flank that radiates to abd. srm bird with urination and feels like im being stabbed. symptoms started yesterday. also today slipped down the stairs hit tailbone and left buttocks. Acute neurological deficits are not present. Mechanism of Injury: No Mechanism of Injury. Adult Sepsis Screening: The patient does not have new or worsening altered mentation. Patient's respiratory rate is less than 22. Systolic blood pressure is greater than 100. Patient has a qSOFA score of 0- Negative Sepsis Screen. Suicide/Homicide risk assessment- the patient denies having any suicidal and/or homicidal ideations and does not present with any other emotional, behavioral or mental health complaints. Status: Patient is not a hydraulic press servicer or dependent. Transition of care: patient was not received from another setting of care. 11:48 Acuity: SHELBY Level 3 [facility] 11:48 Method Of Arrival: Walkin/Carried/Asstd [facility] Triage Assessment: 11:52 General: Appears uncomfortable, Behavior is appropriate for age, cooperative. Pain: srm Pain currently is 8 out of 10 on a pain scale. HIV screening NA for this visit Offered previously. Musculoskeletal: Reports left flank. 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 clonidine HCl 0.2 mg Oral tab 1 tab 2 times per day 2. omeprazole 40 mg Oral cpDR 1 cap once daily 3. Paxil 60mg Oral tab 1 tab once daily 4. Soma 350 mg Oral tab 1 tab four times a day 5. Toradol 10 mg Oral tab every 4-6 hours (Last dose: 07/29/2016 11:00) 6. ibuprofen 800 mg oral tab (Last dose: 07/29/2016 11:30) - PMHx: Adenomyosis; Anxiety; chronic pelvic pain; Depression; ectopic ; Fibromyalgia; Anemia; GERD; Pancreatitis; PCOS; - PSHx: Tonsillectomy; ; Cholecystectomy; - Social history: Smoking status: Patient states was never smoker of tobacco. No barriers to communication noted, The patient speaks fluent Cambodian, Speaks appropriately for age. - Family history: Not pertinent. - : The pt / caregiver states he / she is not on anticoagulants. Home medication list is obtained from the patient. - Exposure Risk Screening:: None identified. Screenin:39 Infection Control. ct3 12:18 Screening information is obtained from the patient. Fall risk: No risks identified. kr3 Assistance ADL's: requires no assistance with activities of daily living. Abuse/DV Screen: The patient / caregiver reports he/she is: not in a situation that causes fear, pain or injury. Nutritional screening: No deficits noted. Advance Directives: Currently, there is no health care proxy. home support is adequate. Assessment: 12:17 Reassessment: Patient appears in no apparent distress at this time. Pain: Location: kr3 left flank Pain currently is 9 out of 10 on a pain scale. Neurological: No deficits noted. Respiratory: Respiratory effort is even, unlabored. : Reports burning with urination. Derm: Skin is normal. 14:35 General: Appears in no apparent distress, comfortable, Behavior is cooperative, [facility] reviewed discharge instructions, encouraged and answered questions, no new problems or complaints voiced, no further issues voiced. Vital Signs: 11:36 BP 145 / 73; Pulse 114; Resp 18; Temp 98.9(O); Pulse Ox 98% on R/A; Weight 131.54 kg ct3 (R); Height 5 ft. 7 in. (170.18 cm) (R); Pain 8/10; 14:11 BP 134 / 78; Pulse 98; Resp 18; Temp 99.2(TE); Pulse Ox 100% on R/A; Pain 9/10; ar3 11:36 Body Mass Index 45.42 (131.54 kg, 170.18 cm) ct3 Vitals: 11:36 Log In Time: July 29, 2016 at 11:33. ct3 ED Course: 11:35 Patient visited by Anna Mclean PCA. ct3 11:35 Patient moved to Waiting ct3 11:36 [facility] is Private Physician. ct3 11:37 Patient moved to Pre RCE ct3 11:49 Triage Initiated srm 12:00 Patient moved to Triage 2 kr3 12:00 UA Sent. ar3 12:02 Oni Shin PA-C is PHCP. cc10 12:02 Tesfaye Fallon MD is Attending Physician. cc10 12:02 Patient visited by Oni Shin PA-C. cc10 12:02 Patient visited by Oni Shin PA-C. cc10 12:12 UCG- In Lab Sent. ar3 12:18 The patient / caregiver is instructed regarding the plan of care and ED course. Patient kr3 has correct armband on for positive identification. 12:19 Patient moved to TR1 kr3 12:57 [facility] Payment Agreement was scanned into [employer] and attached to record. lg 13:36 [facility] is Referral Physician. cc10 14:05 Scarlett Naranjo,RN is Primary Nurse. kr3 14:05 Patient moved to PD2 / 27 kr3 14:12 Patient visited by Lola Flores PCA. ar3 14:13 Patient moved to TR7 [facility] 14:35 No IV's were initiated during this patient's visit. No procedures done that require [facility] assistance. Administered Medications: 12:17 Drug: Ondansetron ODT 4 mg [ondansetron 4 mg disintegrating tablet (1 tabs)] Route: PO; kr3 12:49 Drug: ketorolac 60 mg [ketorolac 30 mg/mL (1 mL) injection solution (2 mL)] Route: IM; kr3 Site: right deltoid; Order Results: Lab Order: UA; SPEC'M 07/29/16 11:55 Test: APPEARANCE, URINE; Value: HAZY; Range: CLEAR; Status: F Test: COLOR, URINE; Value: YELLOW; Range: YELLOW; Status: F Test: PH,URINE; Value: 5.0; Range: 5.0-9.0; Units: UNITS; Status: F Test: SPECIFIC GRAVITY URINE AUTO; Value: 1.032; Range: 1.002-1.035; Status: F Test: PROTEIN, URINE AUTO; Value: 1+; Range: NEGATIVE; Abnormal: Above high normal; Units: mg/dL; Status: F Test: GLUCOSE, URINE (UA) AUTO; Value: NEGATIVE; Range: NEGATIVE; Units: mg/dL; Status: F Test: KETONE, URINE AUTO; Value: TRACE; Range: NEGATIVE; Abnormal: Above high normal; Units: mg/dL; Status: F Test: UROBILINOGEN, URINE AUTO; Value: 0.2; Range: 0.0-2.0; Units: mg/dL; Status: F Test: BILIRUBIN, URINE AUTO; Value: NEGATIVE; Range: NEGATIVE; Status: F Test: NITRITE, URINE AUTO; Value: NEGATIVE; Range: NEGATIVE; Status: F Test: LEUKOCYTE ESTERASE, URINE AUTO; Value: NEGATIVE; Range: NEGATIVE; Status: F Test: BLOOD, URINE BLOOD; Value: 3+; Range: NEGATIVE; Abnormal: Above high normal; Status: F Test: WBC, URINE AUTO; Value: 1; Range: 0-3; Units: /HPF; Status: F Test: RBC, URINE AUTO; Value: TNTC; Range: 0-3; Abnormal: Above high normal; Units: /HPF; Status: F Test: BACTERIA, URINE AUTO; Value: 1+; Range: NEGATIVE; Abnormal: Above high normal; Status: F Test: SQUAMOUS EPITHELIAL CELL UR AU; Value: 0; Range: 0-6; Units: /HPF; Status: F Test: MUCUS, URINE; Value: SMALL; Range: NEGATIVE; Status: F Test: HYALINE CAST, URINE AUTO; Value: 0; Range: 0-1; Units: /LPF; Status: F Lab Order: UCG- In Lab; SPEC'M 07/29/16 11:55 Test: URINE PREG TEST; Value: NEGATIVE; Range: NEGATIVE; Status: F Outcome: 13:36 Discharge ordered by Provider. cc10 14:35 Discharge Assessment: Patient awake, alert and oriented x 3. No cognitive and/or h functional deficits noted. Patient verbalized understanding of disposition instructions. patient administered narcotics - no. The following High Risk Discharge criteria are identified: None. Discharged to home ambulatory. Condition: good Condition: stable Condition: improved. Discharge instructions given to patient, Instructed on discharge instructions, follow up and referral plans. medication usage, Demonstrated understanding of instructions, medications, Pt was receptive of discharge instructions/ teaching. No special radiology studies were completed. Property :Personal belongings accompany Pt. 14:39 Patient left the ED. [facility] Signatures: Treasure Benson, RN RN [facility] Lennox Casillas, Reg Reg Scarlett Naranjo RN RN kr3 Lola Flores, BILLET WORKER BILLET WORKER ar3 Vinay, Anna, BILLET WORKER BILLET WORKER ct3 Nancy Mcbride RN RN [facility] Oni Shin, PA-C PA-C cc10 MTDD
--- NOTE | 2016-07-29 14:40 | EDDOCDS ---
Physician Documentation [facility] Name: Katie Busby Age: 25 yrs Sex: Female : 1990 Arrival Date: 07/29/2016 Time: 11:34 Bed TR7 Private MD: [facility] - [facility] Disposition: 07/29/16 13:36 Discharged to Home/Self Care. Impression: Pelvic and perineal pain, Low back pain. - Condition is Stable. - Discharge Instructions: Chronic Back Pain. - Medication Reconciliation form. - Follow up: [facility] - [facility]; When: Call to arrange an appointment; Reason: Wound/Symptom Recheck, Recheck today's complaints, Worsening of conditions, Continuance of care. - Problem is chronic. - Symptoms are unchanged. Historical: - Allergies: NSAIDS (hx of ulcer); Reglan (Anxiety); Robaxin (Hives)panic attack; SULFA (SULFONAMIDES) (Unknown, Hives); - Home Meds: 1. clonidine HCl 0.2 mg Oral tab 1 tab 2 times per day 2. omeprazole 40 mg Oral cpDR 1 cap once daily 3. Paxil 60mg Oral tab 1 tab once daily 4. Soma 350 mg Oral tab 1 tab four times a day 5. Toradol 10 mg Oral tab every 4-6 hours (Last dose: 07/29/2016 11:00) 6. ibuprofen 800 mg oral tab (Last dose: 07/29/2016 11:30) - PMHx: Adenomyosis; Anxiety; chronic pelvic pain; Depression; ectopic ; Fibromyalgia; Anemia; GERD; Pancreatitis; PCOS; - PSHx: Tonsillectomy; ; Cholecystectomy; - Social history: Smoking status: Patient states was never smoker of tobacco. No barriers to communication noted, The patient speaks fluent Beninese, Speaks appropriately for age. - Family history: Not pertinent. - : The pt / caregiver states he / she is not on anticoagulants. Home medication list is obtained from the patient. - Exposure Risk Screening:: None identified. 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 7 in. (170.18 cm) (R); Pain 8/10; 14:11 BP 134 / 78; Pulse 98; Resp 18; Temp 99.2(TE); Pulse Ox 100% on R/A; Pain 9/10; ar3 11:36 Body Mass Index 45.42 (131.54 kg, 170.18 cm) ct3 MDM: 11:54 UA Ordered. EDMS 12:07 ketorolac 60 mg IM once ordered. cc10 12:07 Ondansetron ODT Oral Disintegrating Tablet 4 mg PO once ordered. cc10 12:08 CT ABD & PELVIS: No Contrast Ordered. EDMS 12:12 UCG- In Lab Ordered. EDMS 12:35 Financial registration complete. lg 12:38 UA Reviewed. cc10 12:38 UCG- In Lab Reviewed. cc 12:57 [facility] Payment Agreement was scanned into [employer] and attached to record. lg Administered Medications: 12:17 Drug: Ondansetron ODT 4 mg [ondansetron 4 mg disintegrating tablet (1 tabs)] Route: PO; kr3 12:49 Drug: ketorolac 60 mg [ketorolac 30 mg/mL (1 mL) injection solution (2 mL)] Route: IM; kr3 Site: right deltoid; Signatures: Dispatcher [employer] EDMS Treasure Benson, RN NISREEN [facility] Lennox Casillas, Reg Reg lg Nancy Mcbride RN RN cj Oni Shin, PAMarbellaC PA-C cc10 Scarlett Naranjo RN kr3 The chart was reviewed and I authenticate all verbal orders and agree with the evaluation and treatment provided.Corrections: (The following items were deleted from the chart) 12:10 12:10 UCG by Nursing ordered. cc10 ar3 Attachments: 12:57 [facility] Payment Agreement lg MTDD
--- NOTE | 2016-07-29 16:09 | REP ---
CT ABDOMEN AND PELVIS WITHOUT CONTRAST: CT abdomen and pelvis performed without oral or IV contrast with sagittal and coronal reconstruction images performed. Visualized lung bases demonstrate no infiltrate. Liver, spleen, adrenals, pancreas, and kidneys are unremarkable in appearance. No renal or ureteral calculus is seen. There is no hydroureteronephrosis. Patient has had a prior cholecystectomy. There is no biliary dilatation. There is no evidence of abdominal aortic aneurysm. There is no adenopathy. There is no free air or free fluid. No bowel wall thickening is seen. Previously noted right ovarian cyst is resolved. No definite pelvic mass is seen. Urinary bladder is not well distended and not well evaluated. No anterior abdominal wall defect is seen. IMPRESSION: No renal or ureteral calculus and no hydroureteronephrosis. No acute abnormality is detected. No evidence of appendicitis. Previously noted right ovarian cyst has resolved. Signed by Christiano Alvarado MD 07/30/2016 12:10 P
--- NOTE | 2016-07-31 15:40 | EDDOCDS ---
Nurse's Notes [facility] Name: Katie Busby Age: 25 yrs Sex: Female : 1990 Arrival Date: 07/29/2016 Time: 11:34 Bed TR7 Private MD: [facility] - Ad[facility] Diagnosis: Pelvic and perineal pain;Low back pain Presentation: 07/29 11:43 Presenting complaint: sent to br after reg. [facility] 11:48 Presenting complaint: Patient states: ? kidney stone. left flank that radiates to abd. srm bird with urination and feels like im being stabbed. symptoms started yesterday. also today slipped down the stairs hit tailbone and left buttocks. Acute neurological deficits are not present. Mechanism of Injury: No Mechanism of Injury. Adult Sepsis Screening: The patient does not have new or worsening altered mentation. Patient's respiratory rate is less than 22. Systolic blood pressure is greater than 100. Patient has a qSOFA score of 0- Negative Sepsis Screen. Suicide/Homicide risk assessment- the patient denies having any suicidal and/or homicidal ideations and does not present with any other emotional, behavioral or mental health complaints. Status: Patient is not a social services counselor or dependent. Transition of care: patient was not received from another setting of care. 11:48 Acuity: SHELBY Level 3 [facility] 11:48 Method Of Arrival: Walkin/Carried/[facility]std [facility] Triage Assessment: 11:52 General: Appears uncomfortable, Behavior is appropriate for age, cooperative. Pain: srm Pain currently is 8 out of 10 on a pain scale. HIV screening NA for this visit Offered previously. Musculoskeletal: Reports left flank. 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 clonidine HCl 0.2 mg Oral tab 1 tab 2 times per day 2. omeprazole 40 mg Oral cpDR 1 cap once daily 3. Paxil 60mg Oral tab 1 tab once daily 4. Soma 350 mg Oral tab 1 tab four times a day 5. Toradol 10 mg Oral tab every 4-6 hours (Last dose: 07/29/2016 11:00) 6. ibuprofen 800 mg oral tab (Last dose: 07/29/2016 11:30) - PMHx: Adenomyosis; Anxiety; chronic pelvic pain; Depression; ectopic ; Fibromyalgia; Anemia; GERD; Pancreatitis; PCOS; - PSHx: Tonsillectomy; ; Cholecystectomy; - Social history: Smoking status: Patient states was never smoker of tobacco. No barriers to communication noted, The patient speaks fluent Lao, Speaks appropriately for age. - Family history: Not pertinent. - : The pt / caregiver states he / she is not on anticoagulants. Home medication list is obtained from the patient. - Exposure Risk Screening:: None identified. Screenin:39 Infection Control. ct3 12:18 Screening information is obtained from the patient. Fall risk: No risks identified. kr3 Assistance ADL's: requires no assistance with activities of daily living. Abuse/DV Screen: The patient / caregiver reports he/she is: not in a situation that causes fear, pain or injury. Nutritional screening: No deficits noted. Advance Directives: Currently, there is no health care proxy. home support is adequate. Assessment: 12:17 Reassessment: Patient appears in no apparent distress at this time. Pain: Location: kr3 left flank Pain currently is 9 out of 10 on a pain scale. Neurological: No deficits noted. Respiratory: Respiratory effort is even, unlabored. : Reports burning with urination. Derm: Skin is normal. 14:35 General: Appears in no apparent distress, comfortable, Behavior is cooperative, [facility] reviewed discharge instructions, encouraged and answered questions, no new problems or complaints voiced, no further issues voiced. Vital Signs: 11:36 BP 145 / 73; Pulse 114; Resp 18; Temp 98.9(O); Pulse Ox 98% on R/A; Weight 131.54 kg ct3 (R); Height 5 ft. 7 in. (170.18 cm) (R); Pain 8/10; 14:11 BP 134 / 78; Pulse 98; Resp 18; Temp 99.2(TE); Pulse Ox 100% on R/A; Pain 9/10; ar3 11:36 Body Mass Index 45.42 (131.54 kg, 170.18 cm) ct3 Vitals: 11:36 Log In Time: July 29, 2016 at 11:33. ct3 ED Course: 11:35 Patient visited by Anna Mclean PCA. ct3 11:35 Patient moved to Waiting ct3 11:36 [facility] is Private Physician. ct3 11:37 Patient moved to Pre RCE ct3 11:49 Triage Initiated srm 12:00 Patient moved to Triage 2 kr3 12:00 UA Sent. ar3 12:02 Oni Shin PA-C is PHCP. cc10 12:02 Tesfaye Fallon MD is Attending Physician. cc10 12:02 Patient visited by Oni Shin PA-C. cc10 12:02 Patient visited by Oni Shin PA-C. cc10 12:12 UCG- In Lab Sent. ar3 12:18 The patient / caregiver is instructed regarding the plan of care and ED course. Patient kr3 has correct armband on for positive identification. 12:19 Patient moved to TR1 kr3 12:57 [facility] Payment Agreement was scanned into [email or web address] and attached to record. lg 13:36 [facility] is Referral Physician. cc10 14:05 Scarlett Naranjo,RN is Primary Nurse. kr3 14:05 Patient moved to PD2 / kr3 14:12 Patient visited by Lola Flores PCA. ar3 14:13 Patient moved to TR7 [facility] 14:35 No IV's were initiated during this patient's visit. No procedures done that require [facility] assistance. 16:53 CT ABD & PELVIS: No Contrast Returned. EDMS 07/30 10:15 T-Sheet-- Draft Copy was scanned into [email or web address] and attached to record. gb Administered Medications: 07/29 12:17 Drug: Ondansetron ODT 4 mg [ondansetron 4 mg disintegrating tablet (1 tabs)] Route: PO; kr3 12:49 Drug: ketorolac 60 mg [ketorolac 30 mg/mL (1 mL) injection solution (2 mL)] Route: IM; kr3 Site: right deltoid; Order Results: Lab Order: UA; SPEC'M 07/29/16 11:55 Test: APPEARANCE, URINE; Value: HAZY; Range: CLEAR; Status: F Test: COLOR, URINE; Value: YELLOW; Range: YELLOW; Status: F Test: PH,URINE; Value: 5.0; Range: 5.0-9.0; Units: UNITS; Status: F Test: SPECIFIC GRAVITY URINE AUTO; Value: 1.032; Range: 1.002-1.035; Status: F Test: PROTEIN, URINE AUTO; Value: 1+; Range: NEGATIVE; Abnormal: Above high normal; Units: mg/dL; Status: F Test: GLUCOSE, URINE (UA) AUTO; Value: NEGATIVE; Range: NEGATIVE; Units: mg/dL; Status: F Test: KETONE, URINE AUTO; Value: TRACE; Range: NEGATIVE; Abnormal: Above high normal; Units: mg/dL; Status: F Test: UROBILINOGEN, URINE AUTO; Value: 0.2; Range: 0.0-2.0; Units: mg/dL; Status: F Test: BILIRUBIN, URINE AUTO; Value: NEGATIVE; Range: NEGATIVE; Status: F Test: NITRITE, URINE AUTO; Value: NEGATIVE; Range: NEGATIVE; Status: F Test: LEUKOCYTE ESTERASE, URINE AUTO; Value: NEGATIVE; Range: NEGATIVE; Status: F Test: BLOOD, URINE BLOOD; Value: 3+; Range: NEGATIVE; Abnormal: Above high normal; Status: F Test: WBC, URINE AUTO; Value: 1; Range: 0-3; Units: /HPF; Status: F Test: RBC, URINE AUTO; Value: TNTC; Range: 0-3; Abnormal: Above high normal; Units: /HPF; Status: F Test: BACTERIA, URINE AUTO; Value: 1+; Range: NEGATIVE; Abnormal: Above high normal; Status: F Test: SQUAMOUS EPITHELIAL CELL UR AU; Value: 0; Range: 0-6; Units: /HPF; Status: F Test: MUCUS, URINE; Value: SMALL; Range: NEGATIVE; Status: F Test: HYALINE CAST, URINE AUTO; Value: 0; Range: 0-1; Units: /LPF; Status: F Lab Order: UCG- In Lab; SPEC'M 07/29/16 11:55 Test: URINE PREG TEST; Value: NEGATIVE; Range: NEGATIVE; Status: F Radiology Order: CT ABD & PELVIS: No Contrast Test: CT ABD & PELVIS: No Contrast REASON FOR EXAMINATION: Renal colic; CT ABDOMEN AND PELVIS WITHOUT CONTRAST:; ; CT abdomen and pelvis performed without oral or IV contrast with sagittal and; coronal reconstruction images performed.; ; Visualized lung bases demonstrate no infiltrate.; ; Liver, spleen, adrenals, pancreas, and kidneys are unremarkable in appearance.; No renal or ureteral calculus is seen. There is no hydroureteronephrosis.; Patient has had a prior cholecystectomy. There is no biliary dilatation. There; is no evidence of abdominal aortic aneurysm. There is no adenopathy. There is; no free air or free fluid. No bowel wall thickening is seen. Previously noted; right ovarian cyst is resolved. No definite pelvic mass is seen. Urinary; bladder is not well distended and not well evaluated. No anterior abdominal wall; defect is seen.; ; IMPRESSION:; ; No renal or ureteral calculus and no hydroureteronephrosis. No acute abnormality; is detected. No evidence of appendicitis. Previously noted right ovarian cyst; has resolved.; ; ; Signed by; Christiano Alvarado MD 07/30/2016 12:10 P; Outcome: 13:36 Discharge ordered by Provider. cc10 14:35 Discharge Assessment: Patient awake, alert and oriented x 3. No cognitive and/or [facility] functional deficits noted. Patient verbalized understanding of disposition instructions. patient administered narcotics - no. The following High Risk Discharge criteria are identified: None. Discharged to home ambulatory. Condition: good Condition: stable Condition: improved. Discharge instructions given to patient, Instructed on discharge instructions, follow up and referral plans. medication usage, Demonstrated understanding of instructions, medications, Pt was receptive of discharge instructions/ teaching. No special radiology studies were completed. Property :Personal belongings accompany Pt. 14:39 Patient left the ED. [facility] Signatures: Dispatcher [employer] EDMS Treasure Benson, RN NISREEN [facility] Komal Senior, Reg Reg gb Lennox Casillas, Reg Reg lg Scarlett Naranjo RN RN kr3 Lola Flores, TURBO OPERATOR TURBO OPERATOR ar3 Anna Mclean, TURBO OPERATOR TURBO OPERATOR ct3 Nancy Mcbride RN RN [facility] Oni Shin, ELDER PAMarbellaC cc10 Chart Complete MTDD
--- NOTE | 2016-07-31 15:40 | EDDOCDS ---
Physician Documentation Name: Katie Busby Age: 25 yrs Sex: Female : 1990 Arrival Date: 07/29/2016 Time: 11:34 Bed TR7 Private MD: [facility] - Adults Disposition: 07/29/16 13:36 Discharged to Home/Self Care. Impression: Pelvic and perineal pain, Low back pain. - Condition is Stable. - Discharge Instructions: Chronic Back Pain. - Medication Reconciliation form. - Follow up: [facility] - Adults; When: Call to arrange an appointment; Reason: Wound/Symptom Recheck, Recheck today's complaints, Worsening of conditions, Continuance of care. - Problem is chronic. - Symptoms are unchanged. Historical: - Allergies: NSAIDS (hx of ulcer); Reglan (Anxiety); Robaxin (Hives)panic attack; SULFA (SULFONAMIDES) (Unknown, Hives); - Home Meds: 1. clonidine HCl 0.2 mg Oral tab 1 tab 2 times per day 2. omeprazole 40 mg Oral cpDR 1 cap once daily 3. Paxil 60mg Oral tab 1 tab once daily 4. Soma 350 mg Oral tab 1 tab four times a day 5. Toradol 10 mg Oral tab every 4-6 hours (Last dose: 07/29/2016 11:00) 6. ibuprofen 800 mg oral tab (Last dose: 07/29/2016 11:30) - PMHx: Adenomyosis; Anxiety; chronic pelvic pain; Depression; ectopic ; Fibromyalgia; Anemia; GERD; Pancreatitis; PCOS; - PSHx: Tonsillectomy; ; Cholecystectomy; - Social history: Smoking status: Patient states was never smoker of tobacco. No barriers to communication noted, The patient speaks fluent [place], Speaks appropriately for age. - Family history: Not pertinent. - : The pt / caregiver states he / she is not on anticoagulants. Home medication list is obtained from the patient. - Exposure Risk Screening:: None identified. 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 7 in. (170.18 cm) (R); Pain 8/10; 14:11 BP 134 / 78; Pulse 98; Resp 18; Temp 99.2(TE); Pulse Ox 100% on R/A; Pain 9/10; ar3 11:36 Body Mass Index 45.42 (131.54 kg, 170.18 cm) ct3 MDM: 11:54 UA Ordered. EDMS 12:07 ketorolac 60 mg IM once ordered. cc10 12:07 Ondansetron ODT Oral Disintegrating Tablet 4 mg PO once ordered. cc10 12:08 CT ABD & PELVIS: No Contrast Ordered. EDMS 12:12 UCG- In Lab Ordered. EDMS 12:35 Financial registration complete. lg 12:38 UA Reviewed. cc10 12:38 UCG- In Lab Reviewed. cc 12: [facility] Payment Agreement was scanned into [employer] and attached to record. 07/30 10:15 T-Sheet-- Draft Copy was scanned into [employer] and attached to record. gb Administered Medications: 07/29 12:17 Drug: Ondansetron ODT 4 mg [ondansetron 4 mg disintegrating tablet (1 tabs)] Route: PO; kr3 12:49 Drug: ketorolac 60 mg [ketorolac 30 mg/mL (1 mL) injection solution (2 mL)] Route: IM; kr3 Site: right deltoid; Signatures: Dispatcher [employer] qu wu you EDTreasure Peoples RN RN [facility] Komal Senior, Reg Reg gb Lennox Casillas, Reg Reg Nancy Mcbride RN RN [facility] Oni Shin, PA-C PAJany cc10 Scarlett Naranjo RN kr3 The chart was reviewed and I authenticate all verbal orders and agree with the evaluation and treatment provided.Corrections: (The following items were deleted from the chart) 12: 12:10 UCG by Nursing ordered. cc10 ar3 Attachments: 12:57 [facility] Payment Agreement 07/30 10:15 T-Sheet-- Draft Copy gb Chart Complete MTDD
--- NOTE | 2016-07-31 15:40 | EDDOCDS ---
Physician Documentation [facility] Name: Katie Busby Age: 25 yrs Sex: Female : 1990 Arrival Date: 07/29/2016 Time: 11:34 Bed TR7 Private MD: [facility] - Adults Disposition: 07/29/16 13:36 Discharged to Home/Self Care. Impression: Pelvic and perineal pain, Low back pain. - Condition is Stable. - Discharge Instructions: Chronic Back Pain. - Medication Reconciliation form. - Follow up: [facility] - Ad[facility]; When: Call to arrange an appointment; Reason: Wound/Symptom Recheck, Recheck today's complaints, Worsening of conditions, Continuance of care. - Problem is chronic. - Symptoms are unchanged. Historical: - Allergies: NSAIDS (hx of ulcer); Reglan (Anxiety); Robaxin (Hives)panic attack; SULFA (SULFONAMIDES) (Unknown, Hives); - Home Meds: 1. clonidine HCl 0.2 mg Oral tab 1 tab 2 times per day 2. omeprazole 40 mg Oral cpDR 1 cap once daily 3. Paxil 60mg Oral tab 1 tab once daily 4. Soma 350 mg Oral tab 1 tab four times a day 5. Toradol 10 mg Oral tab every 4-6 hours (Last dose: 07/29/2016 11:00) 6. ibuprofen 800 mg oral tab (Last dose: 07/29/2016 11:30) - PMHx: Adenomyosis; Anxiety; chronic pelvic pain; Depression; ectopic ; Fibromyalgia; Anemia; GERD; Pancreatitis; PCOS; - PSHx: Tonsillectomy; ; Cholecystectomy; - Social history: Smoking status: Patient states was never smoker of tobacco. No barriers to communication noted, The patient speaks fluent Uzbek, Speaks appropriately for age. - Family history: Not pertinent. - : The pt / caregiver states he / she is not on anticoagulants. Home medication list is obtained from the patient. - Exposure Risk Screening:: None identified. 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 7 in. (170.18 cm) (R); Pain 8/10; 14:11 BP 134 / 78; Pulse 98; Resp 18; Temp 99.2(TE); Pulse Ox 100% on R/A; Pain 9/10; ar3 11:36 Body Mass Index 45.42 (131.54 kg, 170.18 cm) ct3 MDM: 11:54 UA Ordered. EDMS 12:07 ketorolac 60 mg IM once ordered. cc10 12:07 Ondansetron ODT Oral Disintegrating Tablet 4 mg PO once ordered. cc10 12:08 CT ABD & PELVIS: No Contrast Ordered. EDMS 12:12 UCG- In Lab Ordered. EDMS 12:35 Financial registration complete. lg 12:38 UA Reviewed. cc10 12:38 UCG- In Lab Reviewed. cc 12: [facility] Payment Agreement was scanned into [employer] and attached to record. 07/30 10:15 T-Sheet-- Draft Copy was scanned into [employer] and attached to record. gb Administered Medications: 07/29 12:17 Drug: Ondansetron ODT 4 mg [ondansetron 4 mg disintegrating tablet (1 tabs)] Route: PO; kr3 12:49 Drug: ketorolac 60 mg [ketorolac 30 mg/mL (1 mL) injection solution (2 mL)] Route: IM; kr3 Site: right deltoid; Signatures: Dispatcher [employer] EDTreasure Peoples RN RN [facility] Komal Senior, Reg Reg gb Lennox Casillas, Reg Reg Nancy Mcbride RN RN [facility] Oni Shin, PA-C PAJany cc10 Scarlett Naranjo RN kr3 The chart was reviewed and I authenticate all verbal orders and agree with the evaluation and treatment provided.Corrections: (The following items were deleted from the chart) 12: 12:10 UCG by Nursing ordered. cc10 ar3 Attachments: 12:57 [facility] Payment Agreement 07/30 10:15 T-Sheet-- Draft Copy gb Chart Complete MTDD
== END 2016-07-29 14:39 | disposition home or self-care (01) ==
LOC: M ED 11:34
DX: S30.0XXA Contusion of lower back and pelvis, initial encounter (principal); W10.8XXA Fall (on) (from) other stairs and steps, initial encounter; Y92.89 Other specified places as the place of occurrence of the external cause; Y93.89 Activity, other specified; Y99.8 Other external cause status; M54.5 Low back pain; G89.29 Other chronic pain; R10.2 Pelvic and perineal pain; M79.7 Fibromyalgia; D64.9 Anemia, unspecified; F32.9 Major depressive disorder, single episode, unspecified; F41.9 Anxiety disorder, unspecified; N80.0 Endometriosis of uterus; K21.9 Gastro-esophageal reflux disease without esophagitis; E28.2 Polycystic ovarian syndrome; Z79.899 Other long term (current) drug therapy; Z88.8 Allergy status to other drugs, medicaments and biological substances; Z88.2 Allergy status to sulfonamides; Z87.19 Personal history of other diseases of the digestive system
CPT/HCPCS: 74176; 81001; 84703; 96372; 99283; J1885

== ENCOUNTER → 2016-11-05 | Outpatient (REF) | payer OTHER | LOC: M LAB REF 16:33 | PROVIDERS: ATTEND Nurse Practitioner Family | DX: F90.9 Attention-deficit hyperactivity disorder, unspecified type (principal); R53.83 Other fatigue | CPT/HCPCS: 80306; G0480 ==

== ENCOUNTER → 2016-12-19 | Outpatient (REF) | payer OTHER ==
[~2016-12-19] MED LIST changes: +ABIL1TAB13 PO; -ABIL2TAB2 PO; +CIPR-249 PO; -CLOM50TA2 PO; +CLOM50TA9 PO; +CLON0.5T PO; +IBUP1TAB7 PO; -IBUP800T23 PO; +KEFL500C17 PO; -KEFL500C7 PO; -LOES1TAB2 PO; +LOES1TAB7 PO; -METF500T PO; +METF500T13 PO; +METHY10TA PO; +NORC1TAB4 PO; +OXYC-517 PO; -PARO-39 PO; +PARO20TA4 PO; +PAXI10TA12 PO; -PAXI10TA2 PO; +PAXI20TA29 PO; -PAXI20TA3 PO; +PERC5TAB12 PO; +PYRI1TAB5 PO
[2016-12-30 14:14] LABS: BENZODIAZEPINES, URINE SCREEN See Final Results ng/mL (Cutoff=200); METHADONE, URINE SCREEN Negative ng/mL (Cutoff=300); OPIATES, URINE Comment: ng/mL (Cutoff=300); OXYCODONE URINE Positive (.); pH, URINE 5.8 (4.5-8.9)
== END ==
LOC: M LAB REF 16:36
PROVIDERS: ATTEND Family Medicine Addiction Medicine
DX: Z76.0 Encounter for issue of repeat prescription (principal)

== ENCOUNTER 2017-01-12 14:12 | Emergency (ER) | payer OTHER ==
[~2017-01-12] VITALS: Ht 170.2 cm; Wt 143.5 kg
[~2017-01-12 14:12] MED LIST changes: -CIPR-249 PO; -CLON0.5T PO; -METHY10TA PO; -NORC1TAB4 PO; -OXYC-517 PO; -PERC5TAB12 PO; -PYRI1TAB5 PO
[2017-01-12] MEDS ORDERED: CLON0.5T PO (14:21)
[2017-01-12] MEDS ORDERED: MORPHINE 4 MG/ML 1ML SYRINGE IV ONE (15:30)
[2017-01-12] MEDS ORDERED: ONDANSETRON 4MG/2ML VIAL (J2405) IV ONE (15:30)
[2017-01-12] MEDS ORDERED: NS 1,000 ML IV ONE (15:30)
[2017-01-12 15:43] LABS: CONTROL LINE UCG INT CTR LINE PRESENT
[2017-01-12 16:05] LABS: BASO % 0.3 % (0.0-1.0); EOS # 0.3 K/mm3 (0.0-0.50); LARGE UNSTAINED CELL # 0.2 K/mm3 (0.0-0.4); LARGE UNSTAINED CELL % 1.8 % (0.0-4.0); LYMPH # 2.8 K/mm3 (1.5-6.5); LYMPH % 31.9 % (24.0-44.0); MEAN CORPUSCULAR HEMOGLOBIN 24.3 pg (27.0-33.0); MEAN CORPUSCULAR HGB CONC 31.6 g/dl (32.0-36.5); MEAN CORPUSCULAR VOLUME 76.9 fl (80.0-96.0); MONO # 0.3 K/mm3 (0.0-0.8); MONO % 3.1 % (0.0-5.0); NEUTROPHILS # 5.3 K/mm3 (1.8-7.7); NEUTROPHILS % 59.9 % (36.0-66.0); PLATELET COUNT, AUTOMATED 415 k/mm3 (150-450); RED CELL DISTRIBUTION WIDTH 15.9 % (11.5-14.5); WHITE BLOOD COUNT 8.9 K/mm3 (4.0-10.0)
[2017-01-12] MEDS ORDERED: HYDROmorphone HCL 1 MG/ML SYRINGE (J1170) IV ONE (16:30)
[2017-01-12] MEDS ORDERED: TRIMETHOBENZAMIDE HCL INJ 200 MG/2 ML VIAL (J3250) IM ONE (16:30)
[2017-01-12 16:38] LABS: ALBUMIN 3.3 GM/DL (3.2-5.2); ALBUMIN/GLOBULIN RATIO 0.85 (1.00-1.93); ALKALINE PHOSPHATASE 145 U/L (45-117); ALT/SGPT 28 U/L (12-78); AMYLASE 69 U/L (25-115); ANION GAP 8 MEQ/L (8-16); AST/SGOT 13 U/L (15-37); BILIRUBIN,DIRECT < 0.1 MG/DL (0.0-0.2); BILIRUBIN,TOTAL 0.2 MG/DL (0.2-1.0); BLOOD UREA NITROGEN 9 MG/DL (7-18); CALCIUM LEVEL 8.3 MG/DL (8.5-10.1); CARBON DIOXIDE LEVEL 28 MEQ/L (21-32); CHLORIDE LEVEL 102 MEQ/L (98-107); GLOMERULAR FILTRATION RATE > 60.0 (>60); GLUCOSE, FASTING 89 MG/DL (70-105); POTASSIUM SERUM 3.8 MEQ/L (3.5-5.1); SODIUM LEVEL 138 MEQ/L (136-145); TOTAL PROTEIN 7.2 GM/DL (6.4-8.2)
[2017-01-12] MEDS ORDERED: ISOVUE-370 76% 100ML VIAL (Q9967) As Ordered ONE (16:46)
[2017-01-12] MEDS ORDERED: PERCOCET 5MG/325MG TAB PO ONE (17:45)
[2017-01-12] MEDS ORDERED: diphenhydrAMINE INJ 50MG/ML VIAL (J1200) IV ONE (18:00)
--- NOTE | 2017-01-12 18:02 | REP ---
CT abdomen and pelvis with IV contrast: 01/12/2017. Comparison CT abdomen and pelvis without contrast 07/29/2016, CT with contrast 06/28/2016. Clinical history: Left upper quadrant pain. Nausea, vomiting. History of pancreatitis. Technique. The patient received reconstructions. CT abdomen: Lung bases were clear. Heart is not enlarged. There is no pericardial thickening or effusion. I see no hepatosplenomegaly, focal hepatic or splenic lesion, intrahepatic biliary dilatation or ascites. Clip from prior cholecystectomy in the gallbladder fossa. Pancreas shows no mass, ductal dilatation or adjacent inflammatory change nor adenopathy. No evidence for pancreatitis. Adrenal glands are intact. Kidneys show function without obstruction, stone, mass or cyst. No splenomegaly, focal splenic lesion or adjacent ascites. There is no hiatal hernia. Stomach unremarkable. Small bowel loops are nonspecific with some fluid in nondilated left upper quadrant regions with normal caliber and normal tapering to the distal small bowel loops. The aorta is without aneurysm or dissection. No periaortic or other retroperitoneal pathologic sized lymphadenopathy. No renal or ureteral stone. No hydronephrosis. The colon from cecum through the splenic flexure showed stool and gas while the left colon is collapsed but without colitis or diverticulitis. Bone windows show no lumbar or thoracic acute findings and the visualized ribs are intact. CT pelvis: The bony hips, pelvis, sacrum, SI joints and lumbosacral junction were preserved. Distal left colon, sigmoid and rectum show collapse. I do not see inflammatory changes adjacent to suggest proctosigmoiditis. Bladder without wall thickening, stone or mass. Uterus anteverted and tilted towards the right. There are a few follicles in the left ovary. Right ovary grossly unremarkable and neither is enlarged. No ventral or inguinal hernia nor pathologic sized inguinal adenopathy. Appendix is seen and normal. Impression: 1. No CT evidence of colitis, diverticulitis, appendicitis, abscess, ascites or free air. 2. No signs of pancreatitis. 3. Prior cholecystectomy. The liver, spleen, pancreas, adrenal glands and kidneys all unremarkable. No hiatal hernia. Negative exam. Signed by Gumaro Hi MD 01/12/2017 09:26 P
[2017-01-12] MEDS ORDERED: ZOFR4TAB3 PO (18:05)
[2017-01-12] MEDS ORDERED: PERC5TAB12 PO (18:05)
[2017-01-12 18:31] VITALS: BP 124/80
[2017-04-15] MEDS ORDERED: ZOFR4TAB3 PO (18:10)
[2017-04-15] MEDS ORDERED: NORC1TAB4 PO (18:10)
== END 2017-01-12 18:47 | disposition home or self-care (01) ==
LOC: M ED 14:12
DX: R10.12 Left upper quadrant pain (principal); R11.2 Nausea with vomiting, unspecified; R74.8 Abnormal levels of other serum enzymes; N83.02 Follicular cyst of left ovary; E28.2 Polycystic ovarian syndrome; G43.909 Migraine, unspecified, not intractable, without status migrainosus; M79.7 Fibromyalgia; J45.909 Unspecified asthma, uncomplicated; B00.9 Herpesviral infection, unspecified; F90.9 Attention-deficit hyperactivity disorder, unspecified type; Z91.5 Personal history of self-harm; Z90.79 Acquired absence of other genital organ(s); Z79.899 Other long term (current) drug therapy; Z88.2 Allergy status to sulfonamides; Z88.6 Allergy status to analgesic agent; Z88.8 Allergy status to other drugs, medicaments and biological substances
CPT/HCPCS: 36415; 74177; 80048; 80076; 81001; 82150; 83690; 84703; 85025; 86140; 96361; 96372; 96374; 96375; 99283; J1170; J1200; J2405; J3250; Q9967

== ENCOUNTER 2017-01-14 18:44 | Emergency (ER) | payer OTHER ==
[~2017-01-14] VITALS: Ht 170.2 cm; Wt 136.3 kg
[~2017-01-14 18:44] MED LIST changes: +CLON0.5T PO; +PERC5TAB12 PO
[2017-01-14] MEDS ORDERED: GABA600T PO (19:56)
[2017-01-14] MEDS ORDERED: clonazePAM 0.5 MG TAB PO ONE (20:00)
[2017-01-14] MEDS ORDERED: CARISOPRODOL 350 MG TAB PO ONE (20:00)
[2017-01-14] MEDS ORDERED: zolPIDEM TARTRATE 5 MG TAB PO ONE (20:00)
[2017-01-14] MEDS ORDERED: GABAPENTIN 300 MG CAP PO ONE (20:00)
[2017-01-14] MEDS ORDERED: ACETAMINOPHEN TAB 650MG DOSE (2X325MG) PO ONE (20:00)
[2017-01-14 20:25] VITALS: BP 157/81
[2017-01-15] MEDS ORDERED: METHY10TA PO (15:06)
[2017-04-15] MEDS ORDERED: ZOFR4TAB3 PO (18:10)
[2017-04-15] MEDS ORDERED: NORC1TAB4 PO (18:10)
== END 2017-01-14 20:51 | disposition home or self-care (01) ==
LOC: M ED 18:44
DX: Z76.0 Encounter for issue of repeat prescription (principal); I10 Essential (primary) hypertension; F90.9 Attention-deficit hyperactivity disorder, unspecified type; J45.909 Unspecified asthma, uncomplicated; G43.909 Migraine, unspecified, not intractable, without status migrainosus; M79.7 Fibromyalgia; A60.00 Herpesviral infection of urogenital system, unspecified; G62.9 Polyneuropathy, unspecified; Z79.899 Other long term (current) drug therapy; Z88.2 Allergy status to sulfonamides; Z88.6 Allergy status to analgesic agent; Z88.8 Allergy status to other drugs, medicaments and biological substances

== ENCOUNTER 2017-01-15 14:52 | Emergency (ER) | payer OTHER ==
[~2017-01-15] VITALS: Ht 170.2 cm; Wt 144.5 kg
[~2017-01-15 14:52] MED LIST changes: -CIPR-249 PO; -METHY10TA PO; -NORC1TAB4 PO; -OXYC-517 PO; -PYRI1TAB5 PO
[2017-01-15 14:54] VITALS: BP 144/75
[2017-01-15] MEDS ORDERED: METHY10TA PO (15:06)
[2017-01-15] MEDS ORDERED: clonazePAM 0.5 MG TAB PO ONE (16:15)
[2017-04-15] MEDS ORDERED: NORC1TAB4 PO (18:10)
[2017-04-15] MEDS ORDERED: ZOFR4TAB3 PO (18:10)
== END 2017-01-15 16:17 | disposition home or self-care (01) ==
LOC: M ED 14:52
DX: Z76.0 Encounter for issue of repeat prescription (principal); I10 Essential (primary) hypertension; F90.9 Attention-deficit hyperactivity disorder, unspecified type; M79.7 Fibromyalgia; J45.909 Unspecified asthma, uncomplicated; G43.909 Migraine, unspecified, not intractable, without status migrainosus; A60.00 Herpesviral infection of urogenital system, unspecified; E66.9 Obesity, unspecified; G62.9 Polyneuropathy, unspecified; F41.9 Anxiety disorder, unspecified; F32.9 Major depressive disorder, single episode, unspecified; F17.200 Nicotine dependence, unspecified, uncomplicated; Z79.899 Other long term (current) drug therapy; Z88.2 Allergy status to sulfonamides; Z88.8 Allergy status to other drugs, medicaments and biological substances; Z86.14 Personal history of Methicillin resistant Staphylococcus aureus infection; Z90.79 Acquired absence of other genital organ(s); Z90.49 Acquired absence of other specified parts of digestive tract

== ENCOUNTER → 2017-01-15 | Outpatient (REF) | payer OTHER ==
[~2017-01-15] MED LIST changes: +CIPR-249 PO; +METHY10TA PO; +NORC1TAB4 PO; +OXYC-517 PO; +PYRI1TAB5 PO
[2017-01-23 00:06] LABS: BENZODIAZEPINES, URINE SCREEN Negative ng/mL (Cutoff=200); METHADONE, URINE SCREEN Negative ng/mL (Cutoff=300); OPIATES, URINE Positive ng/mL (Cutoff=300); OXYCODONE URINE Positive (.); pH, URINE 6.6 (4.5-8.9)
== END ==
LOC: M SFHCPLAZ 16:01
PROVIDERS: ATTEND Internal Medicine
DX: F90.0 Attention-deficit hyperactivity disorder, predominantly inattentive type (principal)

== ENCOUNTER 2017-02-08 15:15 | Emergency (ER) | payer OTHER ==
[~2017-02-08] VITALS: Ht 170.2 cm; Wt 149.2 kg
[~2017-02-08 15:15] MED LIST changes: +METHY10TA PO
[2017-02-08] MEDS ORDERED: METF500T13 PO (15:40)
[2017-02-08] MEDS ORDERED: ONDANSETRON 4MG/2ML VIAL (J2405) IV ONE ×2 (16:30→19:00)
[2017-02-08] MEDS ORDERED: NS 1,000 ML IV ONE (16:30)
[2017-02-08] MEDS: MORPHINE 4 MG/ML 1ML SYRINGE IV PRN ×2 (16:53→18:23)
[2017-02-08 17:00] LABS: BASO # 0.1 K/mm3 (0.0-0.2); EOS # 0.3 K/mm3 (0.0-0.50); EOS % 4.4 % (0.0-3.0); LARGE UNSTAINED CELL # 0.1 K/mm3 (0.0-0.4); LARGE UNSTAINED CELL % 1.4 % (0.0-4.0); LYMPH # 2.4 K/mm3 (1.5-6.5); LYMPH % 32.6 % (24.0-44.0); MEAN CORPUSCULAR HGB CONC 31.4 g/dl (32.0-36.5); MEAN CORPUSCULAR VOLUME 76.3 fl (80.0-96.0); MONO # 0.3 K/mm3 (0.0-0.8); MONO % 3.6 % (0.0-5.0); PLATELET COUNT, AUTOMATED 385 k/mm3 (150-450); RED CELL DISTRIBUTION WIDTH 16.3 % (11.5-14.5); WHITE BLOOD COUNT 7.1 K/mm3 (4.0-10.0)
[2017-02-08 17:18] LABS: ALBUMIN 3.2 GM/DL (3.2-5.2); ALBUMIN/GLOBULIN RATIO 0.68 (1.00-1.93); ALKALINE PHOSPHATASE 145 U/L (45-117); ALT/SGPT 28 U/L (12-78); ANION GAP 6 MEQ/L (8-16); AST/SGOT 12 U/L (15-37); BILIRUBIN,DIRECT < 0.1 MG/DL (0.0-0.2); BILIRUBIN,TOTAL 0.3 MG/DL (0.2-1.0); BLOOD UREA NITROGEN 10 MG/DL (7-18); CALCIUM LEVEL 9.2 MG/DL (8.5-10.1); CARBON DIOXIDE LEVEL 28 MEQ/L (21-32); CHLORIDE LEVEL 105 MEQ/L (98-107); CREATININE FOR GFR 0.65 MG/DL (0.55-1.02); GLOMERULAR FILTRATION RATE > 60.0 (>60); GLUCOSE, FASTING 90 MG/DL (70-105); POTASSIUM SERUM 4.1 MEQ/L (3.5-5.1); SODIUM LEVEL 139 MEQ/L (136-145); TOTAL PROTEIN 7.9 GM/DL (6.4-8.2)
[2017-02-08 18:02] LABS: CONTROL LINE UCG INT CTR LINE PRESENT
--- NOTE | 2017-02-08 18:30 | REPUSA ---
CT of the abdomen and pelvis without contrast Clinical statement: Pain. Technique: Multiple axial CT images were obtained from the base of the lungs to the floor of the pelv is utilizing 5 mm axial slices without administration of contrast. Coronal and sagittal reconstructio ns were also obtained. Comparison: 02/24/2016. Findings: Chest: The visualized lung bases are clear. Abdomen: The kidneys are normal in size bilaterally. There is no evidence of hydronephrosis or nephro lithiasis. The liver, spleen, pancreas, and adrenal glands are unremarkable. The aorta demonstrates n ormal caliber and contour. There is no abdominal lymphadenopathy or ascites. Pelvis: The bowel is unremarkable, with no obstructive or inflammatory changes. The appendix is gerson l. The urinary bladder is within normal limits. There is no pelvic lymphadenopathy or ascites. The ot her pelvic structures appear unremarkable. Bones: There are no suspicious osseous abnormalities seen. Impression: Unremarkable CT examination of the abdomen and pelvis.
[2017-02-08] MEDS ORDERED: CARISOPRODOL 350 MG TAB PO ONE (19:00)
[2017-02-08] MEDS ORDERED: zolPIDEM TARTRATE 5 MG TAB PO ONE (19:00)
[2017-02-08] MEDS ORDERED: PERCOCET 5MG/325MG TAB PO ONE (19:15)
[2017-02-08 19:28] VITALS: BP 138/72
[2017-02-09] MEDS ORDERED: PYRI1TAB5 PO (15:32)
[2017-02-09] MEDS ORDERED: CIPR-249 PO (15:32)
[2017-04-15] MEDS ORDERED: NORC1TAB4 PO (18:10)
[2017-04-15] MEDS ORDERED: ZOFR4TAB3 PO (18:10)
== END 2017-02-08 19:46 | disposition home or self-care (01) ==
LOC: M ED 15:15
DX: R10.2 Pelvic and perineal pain (principal); G89.29 Other chronic pain; R31.9 Hematuria, unspecified; R50.9 Fever, unspecified; R11.0 Nausea; M54.9 Dorsalgia, unspecified; M79.7 Fibromyalgia; F41.9 Anxiety disorder, unspecified; F32.9 Major depressive disorder, single episode, unspecified; Z87.42 Personal history of other diseases of the female genital tract; Z87.19 Personal history of other diseases of the digestive system; Z88.8 Allergy status to other drugs, medicaments and biological substances; Z88.2 Allergy status to sulfonamides; Z79.899 Other long term (current) drug therapy; Z79.84 Long term (current) use of oral hypoglycemic drugs
CPT/HCPCS: 74176; 80048; 80076; 81001; 83690; 84703; 85025; 87086; 96361; 96374; 96375; 96376; 99284; J2405

== ENCOUNTER 2017-02-09 12:15 | Emergency (ER) | payer OTHER ==
[~2017-02-09] VITALS: Ht 170.2 cm; Wt 143.1 kg
[2017-02-09] MEDS ORDERED: PYRI1TAB5 PO (15:32)
[2017-02-09] MEDS ORDERED: CIPR-249 PO (15:32)
[2017-02-09 15:45] VITALS: BP 148/92
[2017-02-09] MEDS ORDERED: ONDANSETRON 4 MG TAB (S0181) PO ONE (15:45)
[2017-02-09] MEDS ORDERED: PHENAZOPYRIDINE 100 MG TAB PO ONE (15:45)
[2017-04-15] MEDS ORDERED: NORC1TAB4 PO (18:10)
[2017-04-15] MEDS ORDERED: ZOFR4TAB3 PO (18:10)
== END 2017-02-09 15:46 | disposition home or self-care (01) ==
LOC: M ED 12:15
DX: N30.90 Cystitis, unspecified without hematuria (principal); E11.9 Type 2 diabetes mellitus without complications; I10 Essential (primary) hypertension; Z79.899 Other long term (current) drug therapy; Z88.2 Allergy status to sulfonamides; Z88.8 Allergy status to other drugs, medicaments and biological substances

== ENCOUNTER 2017-02-16 02:21 | Emergency (ER) | payer OTHER ==
[~2017-02-16] VITALS: Ht 170.2 cm; Wt 145.0 kg
[~2017-02-16 02:21] MED LIST changes: +CIPR-249 PO; +PYRI1TAB5 PO
[2017-02-16 02:26] VITALS: BP 149/82
[2017-02-16] MEDS ORDERED: ONDANSETRON 4MG/2ML VIAL (J2405) IV ONE (03:00)
[2017-02-16] MEDS ORDERED: NS 1,000 ML IV ONE (03:00)
[2017-02-16 03:13] LABS: BASO # 0.1 K/mm3 (0.0-0.2); BASO % 0.7 % (0.0-1.0); EOS # 0.4 K/mm3 (0.0-0.50); EOS % 4.1 % (0.0-3.0); LARGE UNSTAINED CELL # 0.1 K/mm3 (0.0-0.4); LARGE UNSTAINED CELL % 1.1 % (0.0-4.0); LYMPH # 2.8 K/mm3 (1.5-6.5); MEAN CORPUSCULAR HEMOGLOBIN 23.3 pg (27.0-33.0); MEAN CORPUSCULAR HGB CONC 30.7 g/dl (32.0-36.5); MEAN CORPUSCULAR VOLUME 76.1 fl (80.0-96.0); MONO # 0.4 K/mm3 (0.0-0.8); MONO % 3.6 % (0.0-5.0); NEUTROPHILS # 6.3 K/mm3 (1.8-7.7); NEUTROPHILS % 63.4 % (36.0-66.0); PLATELET COUNT, AUTOMATED 394 k/mm3 (150-450); RED CELL DISTRIBUTION WIDTH 16.5 % (11.5-14.5); WHITE BLOOD COUNT 9.9 K/mm3 (4.0-10.0)
[2017-02-16] MEDS ORDERED: MORPHINE 4 MG/ML 1ML SYRINGE IV ONE (03:30)
[2017-02-16 03:50] LABS: CONTROL LINE HCG INT CTR LINE PRESENT
[2017-02-16 03:53] LABS: ALBUMIN 3.3 GM/DL (3.2-5.2); ALBUMIN/GLOBULIN RATIO 0.72 (1.00-1.93); ALKALINE PHOSPHATASE 147 U/L (45-117); ALT/SGPT 21 U/L (12-78); AMYLASE 43 U/L (25-115); ANION GAP 10 MEQ/L (8-16); AST/SGOT 8 U/L (15-37); BILIRUBIN,DIRECT < 0.1 MG/DL (0.0-0.2); BILIRUBIN,TOTAL 0.1 MG/DL (0.2-1.0); BLOOD UREA NITROGEN 12 MG/DL (7-18); CARBON DIOXIDE LEVEL 26 MEQ/L (21-32); CHLORIDE LEVEL 104 MEQ/L (98-107); CREATININE FOR GFR 0.77 MG/DL (0.55-1.02); GLOMERULAR FILTRATION RATE > 60.0 (>60); GLUCOSE, FASTING 151 MG/DL (70-105); POTASSIUM SERUM 3.8 MEQ/L (3.5-5.1); SODIUM LEVEL 140 MEQ/L (136-145); TOTAL PROTEIN 7.9 GM/DL (6.4-8.2)
--- NOTE | 2017-02-16 04:30 | REPUSA ---
CLINICAL HISTORY: Abdominal pain. TECHNIQUE: Multiple axial, sagittal and coronal CT images were obtained through the abdomen and pelvi s without administration of oral or IV contrast material. COMMENTS: The liver is of uniform attenuation without mass or defect. There is no intra or extrahepatic biliary ductal dilatation. The spleen is normal. The gallbladder is surgically absent. The pancreas is of no rmal contour and attenuation characteristics. There is no evidence of adrenal mass. The kidneys are normal in size, shape and configuration. No renal or ureteral calculi are identified. There is no hydroureter or hydronephrosis. There is no evidence for appendicitis. There is no bowel wall thickening. No evidence for small or la rge bowel obstruction. There is no evidence of abdominal ascites or lymphadenopathy. There is no evidence of intrinsic or extrinsic bladder mass. There is no pelvic ascites or lymphadeno melissa. Images of the lung bases show no evidence of pleural or parenchymal mass. There are no pleural effusi ons. The bony structures are free of lytic or blastic lesions. IMPRESSION: No acute pathology. Prior cholecystectomy. Thank you for your kind referral of this patient.
[2017-02-16] MEDS ORDERED: CIPR-249 PO (04:33)
[2017-02-16] MEDS ORDERED: PYRI1TAB5 PO (04:35)
[2017-02-16] MEDS ORDERED: PHENAZOPYRIDINE 100 MG TAB PO ONE (04:45)
[2017-02-16] MEDS ORDERED: CIPROFLOXACIN 500 MG TAB PO ONE (04:45)
[2017-04-15] MEDS ORDERED: NORC1TAB4 PO (18:10)
[2017-04-15] MEDS ORDERED: ZOFR4TAB3 PO (18:10)
== END 2017-02-16 04:51 | disposition home or self-care (01) ==
LOC: M ED 02:21
DX: N30.90 Cystitis, unspecified without hematuria (principal); R11.10 Vomiting, unspecified; K21.9 Gastro-esophageal reflux disease without esophagitis; F32.9 Major depressive disorder, single episode, unspecified; M79.7 Fibromyalgia; G43.909 Migraine, unspecified, not intractable, without status migrainosus; Z87.42 Personal history of other diseases of the female genital tract; Z88.8 Allergy status to other drugs, medicaments and biological substances; Z88.2 Allergy status to sulfonamides; Z79.2 Long term (current) use of antibiotics; Z79.899 Other long term (current) drug therapy; Z79.84 Long term (current) use of oral hypoglycemic drugs
CPT/HCPCS: 74176; 80048; 80076; 81001; 82150; 83690; 84703; 85025; 87086; 96374; 96375; 99283; J2405

== ENCOUNTER 2017-03-08 10:30 | Emergency (ER) | payer OTHER ==
[~2017-03-08] VITALS: Ht 170.2 cm; Wt 145.4 kg
[2017-03-08] MEDS ORDERED: MORPHINE 4 MG/ML 1ML SYRINGE IV ONE ×2 (11:15→12:15)
[2017-03-08] MEDS ORDERED: ONDANSETRON 4MG/2ML VIAL (J2405) IV ONE (11:15)
[2017-03-08 11:32] LABS: BASO % 0.5 % (0.0-1.0); EOS # 0.2 K/mm3 (0.0-0.50); EOS % 3.6 % (0.0-3.0); LARGE UNSTAINED CELL # 0.1 K/mm3 (0.0-0.4); LARGE UNSTAINED CELL % 1.4 % (0.0-4.0); LYMPH % 29.2 % (24.0-44.0); MEAN CORPUSCULAR HEMOGLOBIN 23.7 pg (27.0-33.0); MEAN CORPUSCULAR HGB CONC 31.8 g/dl (32.0-36.5); MEAN CORPUSCULAR VOLUME 74.7 fl (80.0-96.0); MONO # 0.3 K/mm3 (0.0-0.8); MONO % 4.3 % (0.0-5.0); NEUTROPHILS # 4.2 K/mm3 (1.8-7.7); NEUTROPHILS % 61.1 % (36.0-66.0); PLATELET COUNT, AUTOMATED 417 k/mm3 (150-450); RED CELL DISTRIBUTION WIDTH 15.7 % (11.5-14.5); WHITE BLOOD COUNT 6.9 K/mm3 (4.0-10.0)
[2017-03-08 11:56] LABS: ALBUMIN 3.1 GM/DL (3.2-5.2); ALBUMIN/GLOBULIN RATIO 0.74 (1.00-1.93); ALKALINE PHOSPHATASE 149 U/L (45-117); ALT/SGPT 28 U/L (12-78); ANION GAP 9 MEQ/L (8-16); AST/SGOT 15 U/L (15-37); BILIRUBIN,DIRECT < 0.1 MG/DL (0.0-0.2); BILIRUBIN,TOTAL 0.1 MG/DL (0.2-1.0); BLOOD UREA NITROGEN 7 MG/DL (7-18); CALCIUM LEVEL 7.9 MG/DL (8.5-10.1); CARBON DIOXIDE LEVEL 27 MEQ/L (21-32); CHLORIDE LEVEL 109 MEQ/L (98-107); CREATININE FOR GFR 0.65 MG/DL (0.55-1.02); GLOMERULAR FILTRATION RATE > 60.0 (>60); GLUCOSE, FASTING 86 MG/DL (70-105); POTASSIUM SERUM 4.3 MEQ/L (3.5-5.1); SODIUM LEVEL 145 MEQ/L (136-145); TOTAL PROTEIN 7.3 GM/DL (6.4-8.2)
[2017-03-08] MEDS ORDERED: NORCOTAB PO (13:32)
[2017-03-08] MEDS ORDERED: ZOFR4TAB3 PO (13:32)
[2017-03-08 13:48] VITALS: BP 140/79
--- NOTE | 2017-03-08 13:56 | REP ---
PELVIC ULTRASOUND: Real-time sonographic evaluation of the pelvis is performed utilizing transabdominal and endovaginal technique. The bladder measures 6.8 x 3.9 x 5.8 cm. Uterus measures 7.1 x 3.1 x 4.1 cm. Endometrial thickness 8 mm. Ovaries appear normal in size and echotexture, the right ovary measuring 2.3 x 1.6 x 1.5 cm and left ovary 2.2 x 1.6 x 1.5 cm. There is no adnexal mass or free fluid. There is blood flow seen in each ovary with duplex Doppler evaluation, with no torsion, RI right ovary 0.45 and left ovary 0.63. Please note the study is limited due to patient body habitus. IMPRESSION: Grossly negative pelvic ultrasound. Signed by Christiano Alvarado MD 03/08/2017 07:17 P
--- NOTE | 2017-03-09 13:26 | REP ---
CT ABDOMEN AND PELVIS WITHOUT CONTRAST: CT abdomen and pelvis performed without oral or IV contrast. Sagittal and coronal reconstruction images are performed. The visualized lung bases are clear. The liver, spleen, adrenals, pancreas and kidneys are grossly unremarkable. No renal or ureteral calculus is seen and there is no evidence of hydroureteronephrosis. Urinary bladder is collapsed and not well evaluated. Patient has had a prior cholecystectomy. There is no abdominal aortic aneurysm. There is no adenopathy. There is no free air or free fluid. There is no evidence of appendicitis. No bowel wall thickening is seen. I see no evidence of a pelvic mass. IMPRESSION: Essentially unremarkable noncontrast CT abdomen and pelvis. Signed by Christiano Alvarado MD 03/10/2017 05:12 P
[2017-04-15] MEDS ORDERED: NORC1TAB4 PO (18:10)
[2017-04-15] MEDS ORDERED: ZOFR4TAB3 PO (18:10)
== END 2017-03-08 13:50 | disposition home or self-care (01) ==
LOC: M ED 10:30
DX: R10.9 Unspecified abdominal pain (principal); R11.2 Nausea with vomiting, unspecified; I10 Essential (primary) hypertension; J45.909 Unspecified asthma, uncomplicated; M79.7 Fibromyalgia; N80.0 Endometriosis of uterus; E28.2 Polycystic ovarian syndrome; K21.9 Gastro-esophageal reflux disease without esophagitis; F90.9 Attention-deficit hyperactivity disorder, unspecified type; Z79.84 Long term (current) use of oral hypoglycemic drugs; Z79.899 Other long term (current) drug therapy; Z88.8 Allergy status to other drugs, medicaments and biological substances; Z88.2 Allergy status to sulfonamides; Z87.891 Personal history of nicotine dependence
CPT/HCPCS: 36415; 74176; 76830; 76856; 80048; 80076; 81001; 81025; 83690; 85025; 87086; 93976; 99284; J2405

== ENCOUNTER 2017-03-13 02:46 | Emergency (ER) | payer OTHER ==
[~2017-03-13] VITALS: Ht 170.2 cm; Wt 145.0 kg
[2017-03-13] MEDS ORDERED: OXYC-517 PO (02:55)
[2017-03-13] MEDS ORDERED: ACETAMINOPHEN 325 MG TAB PO ONE (05:30)
[2017-03-13] MEDS ORDERED: TYLE500T78 PO (05:36)
[2017-03-13 05:46] VITALS: BP 125/68
[2017-04-15] MEDS ORDERED: ZOFR4TAB3 PO (18:10)
[2017-04-15] MEDS ORDERED: NORC1TAB4 PO (18:10)
== END 2017-03-13 05:51 | disposition home or self-care (01) ==
LOC: M ED 02:46
DX: M94.0 Chondrocostal junction syndrome [Tietze] (principal); E28.2 Polycystic ovarian syndrome; B00.9 Herpesviral infection, unspecified; E66.9 Obesity, unspecified; F41.9 Anxiety disorder, unspecified; Z79.84 Long term (current) use of oral hypoglycemic drugs; Z79.899 Other long term (current) drug therapy; Z88.8 Allergy status to other drugs, medicaments and biological substances; Z88.2 Allergy status to sulfonamides

== ENCOUNTER 2017-03-25 15:32 | Emergency (ER) | payer OTHER ==
[~2017-03-25] VITALS: Ht 170.2 cm; Wt 145.5 kg
[~2017-03-25 15:32] MED LIST changes: +OXYC-517 PO
[2017-03-25] MEDS ORDERED: ONDANSETRON 4MG/2ML VIAL (J2405) IV ONE ×2 (16:45→18:45)
[2017-03-25] MEDS ORDERED: NS 1,000 ML IV ONE (16:45)
[2017-03-25] MEDS ORDERED: MORPHINE 4 MG/ML 1ML SYRINGE IV ONE ×2 (16:45→18:00)
[2017-03-25 17:20] LABS: BASO % 0.4 % (0.0-1.0); EOS # 0.5 10^3/uL (0.0-0.50); EOS % 5.6 % (0.0-3.0); IMMATURE GRANULOCYTE % 0.7 % (0-0); LYMPH # 2.5 10^3/uL (1.5-6.5); LYMPH % 30.4 % (24.0-44.0); MEAN CORPUSCULAR HEMOGLOBIN 23.1 pg (27.0-33.0); MEAN CORPUSCULAR HGB CONC 29.9 g/dl (32.0-36.5); MEAN CORPUSCULAR VOLUME 77.2 fl (80.0-96.0); MONO # 0.5 10^3/uL (0.0-0.8); MONO % 5.4 % (0.0-5.0); NEUTROPHILS # 4.8 10^3/uL (1.8-7.7); NEUTROPHILS % 57.5 % (36.0-66.0); PLATELET COUNT, AUTOMATED 378 10^3/uL (150-450); RED CELL DISTRIBUTION WIDTH 17.2 % (11.5-14.5); WHITE BLOOD COUNT 8.3 10^3/uL (4.0-10.0)
[2017-03-25 17:26] LABS: CONTROL LINE UCG INT CTR LINE PRESENT
[2017-03-25 17:39] LABS: ANION GAP 6 MEQ/L (8-16); BLOOD UREA NITROGEN 11 MG/DL (7-18); CALCIUM LEVEL 8.6 MG/DL (8.5-10.1); CARBON DIOXIDE LEVEL 28 MEQ/L (21-32); CHLORIDE LEVEL 106 MEQ/L (98-107); GLOMERULAR FILTRATION RATE > 60.0 (>60); GLUCOSE, FASTING 94 MG/DL (70-105); POTASSIUM SERUM 3.9 MEQ/L (3.5-5.1); SODIUM LEVEL 140 MEQ/L (136-145)
[2017-03-25] MEDS ORDERED: PROMETHAZINE INJ 25 MG/ML VIAL (J2550) IV ONE (18:00)
[2017-03-25] MEDS ORDERED: PANTOPRAZOLE 40MG INJ (PROTONIX) (C9113) IV ONE (18:00)
--- NOTE | 2017-03-25 18:09 | REP ---
Renal ultrasound for left flank pain: The kidneys are normal size. Right kidney measures 11.5 x 6.5 x 6.3 cm. Left kidney measures 13.4 x 4.9 x 5.7 cm. Renal cortical echogenicity is normal bilaterally. There is no hydronephrosis on the right on the left. There are no renal calculi, masses or cysts. Impression: Negative renal ultrasound. Bladder ultrasound: The bladder is incompletely distended and cannot be further evaluated. Signed by Christiano Cool MD 03/25/2017 06:00 P
--- NOTE | 2017-03-25 18:11 | REP ---
Pelvic ultrasound transabdominal and Doppler ultrasound assessment: The uterus is anteverted, the fundus is retroflexed. The uterus is normal size measuring 8.9 x 3.5 x 4.7 cm. The endometrium is not thickened measuring 4.9 mm. The right ovary could not be visualized. The left ovary is normal size measuring 2.4 x 2.6 x 2.7 cm. With os Doppler assessment there is vascular flow in the left ovary, however arterial wave forms are difficult to produce because of patient body habitus and bowel gas. There is no dominant left ovarian mass or cyst. There is no free fluid in the pelvis. The patient declined endovaginal imaging. Signed by Christiano Cool MD 03/25/2017 06:04 P
[2017-03-25] MEDS ORDERED: diphenhydrAMINE 25 MG CAP PO ONE (18:15)
[2017-03-25 18:17] LABS: ALBUMIN 2.9 GM/DL (3.2-5.2); ALBUMIN/GLOBULIN RATIO 0.71 (1.00-1.93); ALKALINE PHOSPHATASE 110 U/L (45-117); ALT/SGPT 23 U/L (12-78); AST/SGOT 22 U/L (15-37); BILIRUBIN,DIRECT < 0.1 MG/DL (0.0-0.2); BILIRUBIN,TOTAL 0.2 MG/DL (0.2-1.0)
[2017-03-25] MEDS ORDERED: diphenhydrAMINE INJ 50MG/ML VIAL (J1200) IV STA (19:10)
[2017-03-25] MEDS ORDERED: cefTRIAXone SOD 1 GM in D5W 50 ML IV ONE (19:15)
--- NOTE | 2017-03-25 19:45 | REP ---
Acute abdominal series five views including PA chest, upright abdomen and three supine views of the abdomen: PA chest: Comparison is 05/28/2016. There is chronic elevation of the right hemidiaphragm. Lung menendez are clear. Cardiac size normal. The [place], mediastinum, and bony thorax are unremarkable. No free subdiaphragmatic air. Impression: Negative PA chest. Abdomen, supine upright views: The bowel gas pattern is normal. There are surgical clips in the right upper quadrant. There are no calcifications. Skeletal structures and soft tissues are otherwise unremarkable. Impression: Normal bowel gas pattern. Signed by Christiano Cool MD 03/25/2017 07:37 P
[2017-03-25] MEDS ORDERED: SOMA350T PO (20:10)
[2017-03-25] MEDS ORDERED: TRAM50TA2 PO (20:10)
[2017-03-25] MEDS ORDERED: traMADol 50 MG TAB PO ONE (20:15)
[2017-03-25] MEDS ORDERED: CARISOPRODOL 350 MG TAB PO ONE (20:15)
[2017-03-25 20:24] VITALS: BP 163/90
[2017-04-15] MEDS ORDERED: NORC1TAB4 PO (18:10)
[2017-04-15] MEDS ORDERED: ZOFR4TAB3 PO (18:10)
== END 2017-03-25 20:27 | disposition home or self-care (01) ==
LOC: M ED 15:32
DX: E28.2 Polycystic ovarian syndrome (principal); M54.5 Low back pain; I10 Essential (primary) hypertension; J45.909 Unspecified asthma, uncomplicated; A60.09 Herpesviral infection of other urogenital tract; M79.7 Fibromyalgia; F41.9 Anxiety disorder, unspecified; F33.9 Major depressive disorder, recurrent, unspecified; F90.9 Attention-deficit hyperactivity disorder, unspecified type; Z79.52 Long term (current) use of systemic steroids; Z79.899 Other long term (current) drug therapy; Z88.8 Allergy status to other drugs, medicaments and biological substances; Z88.2 Allergy status to sulfonamides; Z87.42 Personal history of other diseases of the female genital tract; Z91.5 Personal history of self-harm
CPT/HCPCS: 74022; 76775; 76856; 80048; 80076; 81001; 83690; 84703; 85025; 87086; 96374; 96375; 96376; 99283; C9113; J1200; J2405

== ENCOUNTER 2017-04-12 09:12 | Emergency (ER) | payer OTHER ==
[~2017-04-12] VITALS: Ht 170.2 cm; Wt 150.7 kg
[2017-04-12] MEDS ORDERED: ONDANSETRON 4MG/2ML VIAL (J2405) IV ONE (09:45)
[2017-04-12] MEDS ORDERED: diphenhydrAMINE INJ 50MG/ML VIAL (J1200) IV ONE (09:45)
[2017-04-12] MEDS ORDERED: MORPHINE 10 MG/ML 1ML VIAL IV ONE (10:00)
[2017-04-12 10:23] LABS: BASO % 0.3 % (0.0-1.0); EOS # 0.2 10^3/uL (0.0-0.50); EOS % 2.2 % (0.0-3.0); IMMATURE GRANULOCYTE % 0.4 % (0-0); LYMPH # 2.5 10^3/uL (1.5-6.5); LYMPH % 22.2 % (24.0-44.0); MEAN CORPUSCULAR HEMOGLOBIN 23.1 pg (27.0-33.0); MEAN CORPUSCULAR HGB CONC 30.4 g/dl (32.0-36.5); MONO # 0.4 10^3/uL (0.0-0.8); MONO % 3.7 % (0.0-5.0); NEUTROPHILS # 7.9 10^3/uL (1.8-7.7); NEUTROPHILS % 71.2 % (36.0-66.0); PLATELET COUNT, AUTOMATED 421 10^3/uL (150-450); RED CELL DISTRIBUTION WIDTH 16.9 % (11.5-14.5); WHITE BLOOD COUNT 11.1 10^3/uL (4.0-10.0)
[2017-04-12 10:34] LABS: CONTROL LINE HCG INT CTR LINE PRESENT
[2017-04-12 10:41] LABS: ALBUMIN 3.5 GM/DL (3.2-5.2); ALKALINE PHOSPHATASE 144 U/L (45-117); ALT/SGPT 39 U/L (12-78); AMYLASE 24 U/L (25-115); ANION GAP 7 MEQ/L (8-16); AST/SGOT 16 U/L (7-37); BILIRUBIN,DIRECT < 0.1 MG/DL (0.0-0.2); BILIRUBIN,TOTAL 0.2 MG/DL (0.2-1.0); BLOOD UREA NITROGEN 4 MG/DL (7-18); CALCIUM LEVEL 8.9 MG/DL (8.5-10.1); CARBON DIOXIDE LEVEL 29 MEQ/L (21-32); CHLORIDE LEVEL 103 MEQ/L (98-107); CREATININE FOR GFR 0.87 MG/DL (0.55-1.02); GLOMERULAR FILTRATION RATE > 60.0 (>60); GLUCOSE, FASTING 84 MG/DL (70-105); POTASSIUM SERUM 3.8 MEQ/L (3.5-5.1); SODIUM LEVEL 139 MEQ/L (136-145); TOTAL PROTEIN 7.4 GM/DL (6.4-8.2)
[2017-04-12] MEDS ORDERED: MORPHINE 4 MG/ML 1ML SYRINGE IV ONE ×2 (11:30→12:30)
[2017-04-12] MEDS ORDERED: cefTRIAXone SOD 1 GM in D5W 50 ML IV ONE (12:30)
[2017-04-12 13:25] VITALS: BP 123/65
[2017-04-12] MEDS ORDERED: diphenhydrAMINE 50 MG CAP PO ONE (14:00)
[2017-04-12] MEDS ORDERED: PERCOCET 5MG/325MG TAB PO ONE (14:00)
[2017-04-12] MEDS ORDERED: CIPR-249 PO (14:01)
[2017-04-12] MEDS ORDERED: PERC5TAB12 PO (14:03)
--- NOTE | 2017-04-12 14:32 | REP ---
CT abdomen and pelvis without IV or oral contrast: History: Left flank pain. Evaluate for urolithiasis. Comparison study: April 02, 2017 study done at [facility]. 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 The lung bases are essentially clear. There is no evidence of pleural effusion or pericardial effusion. The liver and spleen are normal in size and homogeneous in texture. There are clips in the gallbladder fossa post cholecystectomy. No pancreatic abnormality is seen. No adrenal lesion is observed. There is no evidence of hydronephrosis on either side. No intrarenal calculus is seen. No ureteral calculus is observed. No bladder calculus is seen. Small and large intestinal bowel loops are unremarkable. Normal appendix is seen in the right lower quadrant. No uterine or ovarian abnormality is seen. No bony destructive lesion is seen. Impression: Negative CT abdomen and pelvis without contrast. The patient post cholecystectomy. Normal appendix seen. No urinary tract calculus or hydronephrosis seen. Signed by Glen Cordero MD 04/12/2017 01:41 P
[2017-04-15] MEDS ORDERED: NORC1TAB4 PO (18:10)
[2017-04-15] MEDS ORDERED: ZOFR4TAB3 PO (18:10)
== END 2017-04-12 14:22 | disposition home or self-care (01) ==
LOC: M ED 09:12
DX: N10 Acute pyelonephritis (principal); R10.2 Pelvic and perineal pain; A60.00 Herpesviral infection of urogenital system, unspecified; M79.7 Fibromyalgia; G62.9 Polyneuropathy, unspecified; E28.2 Polycystic ovarian syndrome; N80.0 Endometriosis of uterus; Z79.84 Long term (current) use of oral hypoglycemic drugs; Z79.899 Other long term (current) drug therapy; Z88.8 Allergy status to other drugs, medicaments and biological substances; Z88.2 Allergy status to sulfonamides; Z87.442 Personal history of urinary calculi
CPT/HCPCS: 74176; 80048; 80076; 81001; 82150; 83690; 84703; 85025; 87086; 87210; 87491; 87591; 96365; 96375; 96376; 99284; J0696; J1200; J2405

== ENCOUNTER 2017-04-23 07:26 | Emergency (ER) | payer OTHER ==
[~2017-04-23] VITALS: Ht 170.2 cm; Wt 145.9 kg
[~2017-04-23 07:26] MED LIST changes: +NORC1TAB4 PO
[2017-04-23] MEDS ORDERED: NS 1,000 ML IV ONE (07:45)
[2017-04-23] MEDS ORDERED: ONDANSETRON 4MG/2ML VIAL (J2405) IV ONE (07:45)
[2017-04-23] MEDS ORDERED: MORPHINE 2 MG/ML 1ML SYRINGE IV ONE (07:45)
[2017-04-23 08:23] LABS: BASO % 0.4 % (0.0-1.0); EOS # 0.4 10^3/uL (0.0-0.50); IMMATURE GRANULOCYTE % 0.3 % (0-0); LYMPH # 2.3 10^3/uL (1.5-6.5); LYMPH % 30.9 % (24.0-44.0); MEAN CORPUSCULAR HEMOGLOBIN 22.7 pg (27.0-33.0); MEAN CORPUSCULAR HGB CONC 30.3 g/dl (32.0-36.5); MEAN CORPUSCULAR VOLUME 75.1 fl (80.0-96.0); MONO # 0.3 10^3/uL (0.0-0.8); NEUTROPHILS # 4.4 10^3/uL (1.8-7.7); NEUTROPHILS % 59.4 % (36.0-66.0); PLATELET COUNT, AUTOMATED 385 10^3/uL (150-450); RED CELL DISTRIBUTION WIDTH 16.7 % (11.5-14.5); WHITE BLOOD COUNT 7.4 10^3/uL (4.0-10.0)
[2017-04-23 08:30] LABS: CALCIUM OXALATE CRYSTALS SMALL
[2017-04-23 08:39] LABS: CONTROL LINE HCG INT CTR LINE PRESENT
[2017-04-23 08:43] LABS: ANION GAP 6 MEQ/L (8-16); BLOOD UREA NITROGEN 7 MG/DL (7-18); CARBON DIOXIDE LEVEL 27 MEQ/L (21-32); CHLORIDE LEVEL 106 MEQ/L (98-107); GLOMERULAR FILTRATION RATE > 60.0 (>60); GLUCOSE, FASTING 96 MG/DL (70-105); POTASSIUM SERUM 5.1 MEQ/L (3.5-5.1); SODIUM LEVEL 139 MEQ/L (136-145)
[2017-04-23] MEDS ORDERED: KETOROLAC 30 MG/ML VIAL (J1885) IV ONE (10:00)
--- NOTE | 2017-04-23 10:05 | REP ---
Renal ultrasound: Comparisons are the CT studies of the abdomen pelvis dated 04/02/2017 and 04/12/2017. The kidneys are normal size but a slightly asymmetric in size. The right kidney measures 10.0 x 5.7 x 6.1 cm. The left kidney measures 12.0 x 5.3 x 5.8 cm. Renal cortical echogenicity is normal bilaterally. There is no hydronephrosis, calculus, mass or cyst on the right or the left. Impression: Essentially negative renal ultrasound . There is no hydronephrosis. The study is technically difficult, the patient unable to fully cooperate with the examination process. The bladder is incompletely distended and cannot be assessed. Signed by Christiano Cool MD 04/23/2017 09:56 A
[2017-04-23] MEDS ORDERED: PROMETHAZINE INJ 25 MG/ML VIAL (J2550) IM ONE (10:15)
[2017-04-23] MEDS ORDERED: MORPHINE 10 MG/ML 1ML VIAL IM ONE (10:15)
[2017-04-23 10:38] LABS: ALBUMIN/GLOBULIN RATIO 0.77 (1.00-1.93); ALKALINE PHOSPHATASE 124 U/L (45-117); ALT/SGPT 40 U/L (12-78); AST/SGOT 48 U/L (7-37); BILIRUBIN,DIRECT < 0.1 MG/DL (0.0-0.2); BILIRUBIN,TOTAL 0.3 MG/DL (0.2-1.0); TOTAL PROTEIN 6.9 GM/DL (6.4-8.2)
[2017-04-23] MEDS ORDERED: clonazePAM 1 MG TAB PO ONE (11:45)
[2017-04-23] MEDS ORDERED: clonazePAM 0.5 MG TAB PO ONE (12:00)
[2017-04-23] MEDS ORDERED: ZOFR4TAB3 PO (12:18)
[2017-04-23] MEDS ORDERED: PERC5TAB12 PO (12:18)
[2017-04-23 12:34] VITALS: BP 159/86
== END 2017-04-23 12:46 | disposition home or self-care (01) ==
LOC: M ED 07:26
DX: Z76.5 Malingerer [conscious simulation] (principal); R10.9 Unspecified abdominal pain; I10 Essential (primary) hypertension; J45.909 Unspecified asthma, uncomplicated; M79.7 Fibromyalgia; E28.2 Polycystic ovarian syndrome; A60.00 Herpesviral infection of urogenital system, unspecified; F41.9 Anxiety disorder, unspecified; F33.9 Major depressive disorder, recurrent, unspecified; N80.9 Endometriosis, unspecified; Z79.2 Long term (current) use of antibiotics; Z79.84 Long term (current) use of oral hypoglycemic drugs; Z79.899 Other long term (current) drug therapy; Z88.8 Allergy status to other drugs, medicaments and biological substances; Z88.2 Allergy status to sulfonamides; Z87.442 Personal history of urinary calculi; Z87.42 Personal history of other diseases of the female genital tract
CPT/HCPCS: 36415; 76775; 80048; 80076; 81001; 83605; 83690; 84703; 85025; 96372; 96374; 96375; 99284; J2405

== ENCOUNTER 2017-04-27 12:10 | Emergency (ER) | payer OTHER ==
[~2017-04-27] VITALS: Ht 170.2 cm; Wt 147.7 kg
[2017-04-27] MEDS ORDERED: NORCO, ANEXSIA 5/325MG TABLET (HYDROcodone/ACETAMINOPHEN) PO ONE (14:15)
--- NOTE | 2017-04-27 14:41 | ED PDOC ---
Post-Departure Follow-Up PT SEEN FOR SAME IN ED ON 04/23/17. DID NOT HAVE CT SCAN AT THAT TIME DUE TO INCREASED NUMBER OF CT SCANS OVER THE PAST COUPLE MONTHS. PT PRESENTS TODAY FOR LEFT FLANK PAIN AND A HEAD INJURY. PT SEEN BY NURSING STAFF SITTING IN WAITING ROOM, DOING MATH PROBLEMS/HOMEWORK CALMLY UNTIL CALLED IN BY STAFF. UPON WALKING INTO EXAM ROOM, PT SITTING IN CHAIR AND RESTING HEAD ON EXAM BED, GRABBING LEFT SIDE. STATES LEFT SIDE PAIN THAT COMES AND GOES AND HAS BEEN THERE FOR OVER 2 WEEKS, "AND I ALSO HAVE A HEAD INJURY." WHEN ASKING WHAT HAPPENED WITH THE HEAD INJURY, PT PAUSES AND RESPONDS SLOWLY TO EACH QUESTION WITH ONLY ONE-WORD ANSWERS. COOPERATIVE TO EXAM AND STOPS SNIFFLING WHEN ASKED TO PERFORM CERTAIN TASKS, LIKE OPENING MOUTH, LAYING BACK. THEN PT STATES SHE TOOK MOTRIN AND ORAL TORADOL AT HOME, "SO I HOPE I GET SOME BENADRYL." WHEN ASKED WHY SHE NEEDS BENADRYL, PT RESPONDED, "BECAUSE THAT STUFF MAKES ME ITCH!" IN PT'S CHART, ALLERGY TO NSAIDS STATES : "BLEEDING ULCER-CANNOT TAKE PER DOCTOR 'S REQUEST." MIGUEL BUNDY PA-C Apr 27, 2017 14:41
[2017-04-27 15:00] LABS: ANION GAP 6 MEQ/L (8-16); BLOOD UREA NITROGEN 9 MG/DL (7-18); CARBON DIOXIDE LEVEL 29 MEQ/L (21-32); CHLORIDE LEVEL 104 MEQ/L (98-107); CREATININE FOR GFR 0.73 MG/DL (0.55-1.02); GLOMERULAR FILTRATION RATE > 60.0 (>60); GLUCOSE, FASTING 82 MG/DL (70-105); POTASSIUM SERUM 3.8 MEQ/L (3.5-5.1); SODIUM LEVEL 139 MEQ/L (136-145)
[2017-04-27 15:04] LABS: BASO % 0.4 % (0.0-1.0); EOS # 0.3 10^3/uL (0.0-0.50); EOS % 4.2 % (0.0-3.0); IMMATURE GRANULOCYTE % 0.5 % (0-0); LYMPH # 2.1 10^3/uL (1.5-6.5); LYMPH % 26.3 % (24.0-44.0); MEAN CORPUSCULAR HEMOGLOBIN 22.8 pg (27.0-33.0); MEAN CORPUSCULAR HGB CONC 30.3 g/dl (32.0-36.5); MEAN CORPUSCULAR VOLUME 75.2 fl (80.0-96.0); MONO # 0.3 10^3/uL (0.0-0.8); MONO % 4.2 % (0.0-5.0); NEUTROPHILS # 5.2 10^3/uL (1.8-7.7); NEUTROPHILS % 64.4 % (36.0-66.0); PLATELET COUNT, AUTOMATED 427 10^3/uL (150-450); RED CELL DISTRIBUTION WIDTH 16.7 % (11.5-14.5)
--- NOTE | 2017-04-27 15:04 | REP ---
Clinical: Left flank pain Technique: Real time walker scale ultrasound examination using curved array transducer. Findings: The bilateral kidneys are normal in contour, size, echogenicity, and reniform shape without hydronephrosis, nephrolithiasis, cystic or mass lesion. No perinephric fluid collections are identified. Right kidney measures 10.7 x 5.1 x 5.4 cm. Left kidney measures 10.9 x 5.2 x 5.3 cm. The bladder is under distended and grossly normal. Impression: Normal renal ultrasound. Signed by Oleg Marr MD 04/27/2017 02:56 P
--- NOTE | 2017-04-27 15:26 | REP ---
Clinical: Left orbital pain with recent trauma/fall. Technique: Nogueira, Marlon and lateral views. Findings: The orbits and associated surrounding visualized osseous structures appear intact. No obvious acute fracture or dislocation. No fluid level. Sinuses are within normal limits. Impression: No obvious acute left orbital injury by radiographic evaluation. Signed by Oleg Marr MD 04/27/2017 03:17 P
[2017-04-27 16:05] VITALS: BP 109/65
== END 2017-04-27 16:25 | disposition home or self-care (01) ==
LOC: M ED 12:10
DX: R10.2 Pelvic and perineal pain (principal); G89.29 Other chronic pain; R31.29 Other microscopic hematuria; Z76.5 Malingerer [conscious simulation]; E66.01 Morbid (severe) obesity due to excess calories; E28.2 Polycystic ovarian syndrome; M79.7 Fibromyalgia; F90.9 Attention-deficit hyperactivity disorder, unspecified type; Z79.84 Long term (current) use of oral hypoglycemic drugs; Z79.899 Other long term (current) drug therapy; Z88.8 Allergy status to other drugs, medicaments and biological substances; Z88.2 Allergy status to sulfonamides; Z91.5 Personal history of self-harm

== ENCOUNTER 2017-05-02 14:55 | Emergency (ER) | payer OTHER ==
[~2017-05-02] VITALS: Ht 170.2 cm; Wt 145.4 kg
[2017-05-02] MEDS ORDERED: MORPHINE 10 MG/ML 1ML VIAL IV ONE (16:45)
[2017-05-02] MEDS ORDERED: ONDANSETRON 4 MG TAB (S0181) PO ONE (17:15)
[2017-05-02 17:47] LABS: CONTROL LINE HCG INT CTR LINE PRESENT
[2017-05-02] MEDS ORDERED: CIPR-249 PO (18:03)
[2017-05-02] MEDS ORDERED: CIPROFLOXACIN 500 MG TAB PO ONE (18:15)
[2017-05-02] MEDS ORDERED: ZOFR4TAB3 PO (18:52)
[2017-05-02 18:53] VITALS: BP 119/69
--- NOTE | 2017-05-03 09:56 | REP ---
RIGHT KNEE, TWO VIEWS: There is no evidence of an acute fracture, dislocation or intrinsic bone disease. IMPRESSION: No fracture or dislocation. Signed by Christiano Alvarado MD 05/03/2017 05:29 P
== END 2017-05-02 18:57 | disposition home or self-care (01) ==
LOC: M ED 14:55
DX: S80.01XA Contusion of right knee, initial encounter (principal); S20.01XA Contusion of right breast, initial encounter; W01.198A Fall on same level from slipping, tripping and stumbling with subsequent striking against other object, initial encounter; Y92.009 Unspecified place in unspecified non-institutional (private) residence as the place of occurrence of the external cause; Y93.01 Activity, walking, marching and hiking; Y99.8 Other external cause status; R31.9 Hematuria, unspecified; N39.0 Urinary tract infection, site not specified; F41.9 Anxiety disorder, unspecified; F33.9 Major depressive disorder, recurrent, unspecified; F43.10 Post-traumatic stress disorder, unspecified; F90.9 Attention-deficit hyperactivity disorder, unspecified type; E28.2 Polycystic ovarian syndrome; K21.9 Gastro-esophageal reflux disease without esophagitis; M54.5 Low back pain; G89.29 Other chronic pain; Z79.899 Other long term (current) drug therapy; Z79.84 Long term (current) use of oral hypoglycemic drugs

== ENCOUNTER 2017-05-06 09:10 | Emergency (ER) | payer OTHER ==
[~2017-05-06] VITALS: Ht 170.2 cm; Wt 100.0 kg
[2017-05-06 09:10] VITALS: BP 137/77
[2017-05-06 10:41] LABS: METHADONE URINE NEGATIVE (NEGATIVE)
[2017-05-06] MEDS ORDERED: IBUPROFEN 600 MG TAB PO ONE (11:15)
--- NOTE | 2017-05-06 11:16 | REP ---
MAXILLOFACIAL CT STUDY WITHOUT CONTRAST: HISTORY: Right maxillary and nasal trauma. 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 No mandibular fracture is seen. Zygomatic arches are intact. No maxillary fracture is seen. Nasal bone and inferior maxillary spine appear intact. There is a septation in the anterosuperior maxillary sinus on the left. Paranasal sinuses are otherwise clear. Nasal turbinate soft tissues are unremarkable. Bony nasal septum is in the midline. No intraorbital abnormality is seen. Visualized intracranial structures are unremarkable. IMPRESSION: No traumatic abnormality seen. Signed by Glen Cordero MD 05/06/2017 11:45 A
--- NOTE | 2017-05-06 11:43 | REP ---
Clinical: Trauma. Technique: AP, lateral, bilateral oblique views left wrist . Findings: The carpal bones, surrounding osseous structures, soft tissues, and joint spaces are normal. There is no evidence for acute fracture or dislocation. No subcutaneous emphysema or radiodense foreign body. Impression: Normal wrist series. No acute fracture or dislocation Signed by Oleg Marr MD 05/06/2017 11:34 A
--- NOTE | 2017-05-06 11:44 | REP ---
Clinical: Trauma. Technique: Single AP view of the pelvis. Findings: No acute fracture dislocation. Skeletal structures, joint spaces, and surrounding soft tissues are normal. Impression: Normal pelvic radiograph. No acute fracture or dislocation. Signed by Oleg Marr MD 05/06/2017 11:35 A
== END 2017-05-06 12:02 | disposition home or self-care (01) ==
LOC: M ED 09:10
DX: S00.81XA Abrasion of other part of head, initial encounter (principal); S30.0XXA Contusion of lower back and pelvis, initial encounter; S63.501A Unspecified sprain of right wrist, initial encounter; W10.9XXA Fall (on) (from) unspecified stairs and steps, initial encounter; Y92.009 Unspecified place in unspecified non-institutional (private) residence as the place of occurrence of the external cause; Y93.89 Activity, other specified; Y99.8 Other external cause status; Z79.899 Other long term (current) drug therapy; Z79.52 Long term (current) use of systemic steroids; Z88.8 Allergy status to other drugs, medicaments and biological substances; Z88.2 Allergy status to sulfonamides

== ENCOUNTER 2017-05-22 20:01 | Emergency (ER) | payer OTHER ==
[~2017-05-22] VITALS: Ht 170.2 cm; Wt 145.4 kg
[2017-05-22 20:11] VITALS: BP 132/72
[2017-05-22] MEDS ORDERED: ACETAMINOPHEN 325 MG TAB PO ONE (21:15)
--- NOTE | 2017-05-23 12:05 | REP ---
SINGLE VIEW OF THE SHOULDER: REASON: Trauma. Single AP view of the right shoulder is limited and a trauma series consists of at least three views. Single AP limited exam shows no fracture. Signed by Kyrie Paulino DO 05/23/2017 08:53 A
--- NOTE | 2017-05-23 12:05 | REP ---
REASON: Trauma. AP and lateral views of the left wrist were obtained and compared to 05/06/2017 which showed no abnormality. Two views cannot rule out a fracture and a trauma series consists of four views. The two views obtained today show no difference from the AP and lateral views obtained 05/06/2017. There is no evidence of a fracture on this limited exam. A four view series is recommended if a fracture is of concern. If soft tissue injury is of concern, then obtain an MRI. Signed by Kyrie Paulino DO 05/23/2017 08:53 A
--- NOTE | 2017-05-23 12:05 | REP ---
REASON: Trauma. Nine views of the facial bones were obtained. No prior facial bone study is available for comparison. An orbit study obtained 04/27/2017 was reviewed. The orbits are unchanged showing no evidence of a fracture. Limited plain film examination of the facial bones shows no gross fracture. IMPRESSION: Negative plain film examination of the facial bones. The gold standard of imaging facial bone fractures is CT and that examination is recommended if a facial bone fracture is of clinical concern since CT is more sensitive in detecting subtle facial bone fractures than is plain radiography. Signed by Kyrie Paulino DO 05/23/2017 08:53 A
[2017-05-23] MEDS ORDERED: TYLE650T35 PO (15:34)
[2017-05-23] MEDS ORDERED: TRAM50TA2 PO (18:51)
== END 2017-05-22 21:31 | disposition home or self-care (01) ==
LOC: M ED 20:01
DX: S60.212A Contusion of left wrist, initial encounter (principal); S40.011A Contusion of right shoulder, initial encounter; S00.83XA Contusion of other part of head, initial encounter; Y04.8XXA Assault by other bodily force, initial encounter; Y92.009 Unspecified place in unspecified non-institutional (private) residence as the place of occurrence of the external cause; Y93.89 Activity, other specified; Y99.8 Other external cause status; F33.9 Major depressive disorder, recurrent, unspecified; F41.9 Anxiety disorder, unspecified; F60.3 Borderline personality disorder; F60.7 Dependent personality disorder; G89.29 Other chronic pain; F19.10 Other psychoactive substance abuse, uncomplicated; Z79.899 Other long term (current) drug therapy; Z88.8 Allergy status to other drugs, medicaments and biological substances; Z88.2 Allergy status to sulfonamides

== ENCOUNTER 2017-05-23 15:27 | Emergency (ER) | payer OTHER ==
[~2017-05-23] VITALS: Ht 170.2 cm; Wt 122.7 kg
[2017-05-23] MEDS ORDERED: TYLE650T35 PO (15:34)
[2017-05-23] MEDS ORDERED: PERCOCET 5MG/325MG TAB PO ONE (17:15)
[2017-05-23] MEDS ORDERED: ONDANSETRON 4 MG TAB (S0181) PO ONE (17:15)
--- NOTE | 2017-05-23 18:40 | REPUSA ---
CLINICAL HISTORY: Abdominal pain COMMENTS: Limited real time sonography of the abdomen was performed without prior studies for comparison. The left kidney measures 12.7 cm, no evidence of hydronephrosis. There is no evidence of ascites. IMPRESSION: Unremarkable left kidney. Mild splenomegaly. Thank you for your kind referral of this patient.
[2017-05-23] MEDS ORDERED: TRAM50TA2 PO (18:51)
[2017-05-23 19:00] VITALS: BP 150/91
[2017-05-23] MEDS ORDERED: traMADol 50 MG TAB PO ONE (19:00)
[2017-05-23] MEDS ORDERED: traMADol 50 MG TAB As Ordered ONE (19:01)
== END 2017-05-23 19:00 | disposition home or self-care (01) ==
LOC: M ED 15:27
DX: S30.1XXA Contusion of abdominal wall, initial encounter (principal); Y04.8XXA Assault by other bodily force, initial encounter; Y92.89 Other specified places as the place of occurrence of the external cause; Y93.89 Activity, other specified; Y99.8 Other external cause status; N80.9 Endometriosis, unspecified; Z79.899 Other long term (current) drug therapy; Z88.2 Allergy status to sulfonamides; Z88.8 Allergy status to other drugs, medicaments and biological substances; Z87.891 Personal history of nicotine dependence

== ENCOUNTER 2017-06-06 07:57 | Emergency (ER) | payer OTHER ==
[~2017-06-06] VITALS: Ht 170.2 cm; Wt 145.4 kg
[~2017-06-06 07:57] MED LIST changes: +TYLE650T35 PO
[2017-06-06] MEDS ORDERED: NS 1,000 ML IV ONE (09:00)
[2017-06-06] MEDS ORDERED: ONDANSETRON 4MG/2ML VIAL (J2405) IV ONE (09:00)
[2017-06-06] MEDS: MORPHINE 2 MG/ML 1ML SYRINGE IV PRN ×3 (09:31→11:24)
[2017-06-06 09:34] LABS: BASO % 0.6 % (0.0-1.0); EOS # 0.2 10^3/uL (0.0-0.50); EOS % 2.5 % (0.0-3.0); IMMATURE GRANULOCYTE % 0.3 % (0-0); LYMPH # 2.4 10^3/uL (1.5-6.5); LYMPH % 33.4 % (24.0-44.0); MEAN CORPUSCULAR HEMOGLOBIN 22.2 pg (27.0-33.0); MEAN CORPUSCULAR VOLUME 73.8 fl (80.0-96.0); MONO # 0.4 10^3/uL (0.0-0.8); MONO % 5.6 % (0.0-5.0); NEUTROPHILS # 4.1 10^3/uL (1.8-7.7); NEUTROPHILS % 57.6 % (36.0-66.0); PLATELET COUNT, AUTOMATED 425 10^3/uL (150-450); RED CELL DISTRIBUTION WIDTH 16.5 % (11.5-14.5); WHITE BLOOD COUNT 7.1 10^3/uL (4.0-10.0)
[2017-06-06 09:40] LABS: MUCUS, URINE RFX SMALL (NEGATIVE); SPECIFIC GRAVITY UR AUTO RFX 1.024 (1.002-1.035); SQUAM EPITHELIAL CELL UR AURFX 3 /HPF (0-6)
[2017-06-06] MEDS ORDERED: GASTROGRAFIN SOLUTION 30ML (Q9963) PO ONE (09:45)
[2017-06-06] MEDS ORDERED: diphenhydrAMINE INJ 50MG/ML VIAL (J1200) As Ordered ONE (09:45)
[2017-06-06 09:52] LABS: ALBUMIN 3.4 GM/DL (3.2-5.2); ALBUMIN/GLOBULIN RATIO 0.74 (1.00-1.93); ALKALINE PHOSPHATASE 115 U/L (45-117); ALT/SGPT 25 U/L (12-78); ANION GAP 7 MEQ/L (8-16); AST/SGOT 14 U/L (7-37); BILIRUBIN,DIRECT < 0.1 MG/DL (0.0-0.2); BILIRUBIN,TOTAL 0.2 MG/DL (0.2-1.0); BLOOD UREA NITROGEN 8 MG/DL (7-18); CALCIUM LEVEL 8.5 MG/DL (8.5-10.1); CARBON DIOXIDE LEVEL 29 MEQ/L (21-32); CHLORIDE LEVEL 107 MEQ/L (98-107); CREATININE FOR GFR 0.66 MG/DL (0.55-1.02); GLOMERULAR FILTRATION RATE > 60.0 (>60); GLUCOSE, FASTING 87 MG/DL (70-105); POTASSIUM SERUM 3.7 MEQ/L (3.5-5.1); SODIUM LEVEL 143 MEQ/L (136-145)
[2017-06-06] MEDS ORDERED: diphenhydrAMINE INJ 50MG/ML VIAL (J1200) IV ONE (10:00)
[2017-06-06] MEDS ORDERED: ISOVUE-370 76% 100ML VIAL (Q9967) As Ordered ONE (10:02)
[2017-06-06] MEDS ORDERED: GASTROGRAFIN SOLUTION 30ML PO ONE (10:45)
--- NOTE | 2017-06-06 10:52 | REP ---
Clinical: Chest pain . Comparison: 03/25/2017 . Technique: PA and lateral. Findings: The mediastinum and cardiac silhouette are normal. The lung menendez are clear and without acute consolidation, effusion, or pneumothorax. The skeletal structures are intact and normal. Impression: 1. No acute cardiopulmonary process. Signed by Oleg Marr MD 06/06/2017 10:43 A
--- NOTE | 2017-06-06 11:38 | REP ---
Clinical: Acute abdominal pain. Technique: Axial contrast enhanced images from the lung bases to the pubic symphysis using oral (per protocol) and 100 ml Isovue 370 intravenous contrast material with coronal and sagittal re-formations. Comparison: 04/15/2017. Findings: Lung bases are clear. Visualized heart and pericardium normal. Liver, spleen, pancreas, bilateral adrenal glands and kidneys are normal. Evidence of prior cholecystectomy. The enteric system is without obstruction or acute inflammatory process. Normal terminal ileum and appendix identified in the right lower quadrant. Pelvis demonstrates collapsed normal bladder and age-appropriate uterus/adnexa. No pelvic fluid or ascites. No adenopathy. No obvious solitary mass lesion. No free air. Abdominal aorta and vasculature appears normal. Surrounding musculoskeletal structures are intact. Impression: 1. No obvious acute abdominopelvic pathology appreciated. Signed by Oleg Marr MD 06/06/2017 11:29 A
[2017-06-06 13:00] VITALS: BP 138/84
--- NOTE | 2017-06-06 15:01 | ECGEPIP ---
Stationary ECG Study 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
== END 2017-06-06 13:02 | disposition home or self-care (01) ==
LOC: M ED 07:57
DX: R10.84 Generalized abdominal pain (principal); I10 Essential (primary) hypertension; E03.9 Hypothyroidism, unspecified; K21.9 Gastro-esophageal reflux disease without esophagitis
CPT/HCPCS: 71020; 74177; 80048; 80076; 81001; 81025; 83605; 83690; 85025; 93005; 94760; 96374; 96375; 96376; 99284; J1200; J2405; Q9963; Q9967

== ENCOUNTER → 2017-08-02 | Outpatient (CLI) | payer OTHER | LOC: M WUC 11:36 | DX: J11.1 Influenza due to unidentified influenza virus with other respiratory manifestations (principal) | CPT/HCPCS: 71046 ==

== ENCOUNTER 2017-08-13 13:31 | Emergency (ER) | payer OTHER, SELFPAY ==
[2017-08-13 15:28] LABS: KETONE, URINE AUTO RFX NEGATIVE (NEGATIVE); NITRITE, URINE AUTO RFX NEGATIVE (NEGATIVE); RBC, URINE AUTO RFX TNTC /HPF (0-3); SPECIFIC GRAVITY UR AUTO RFX 1.019 (1.002-1.035); SQUAM EPITHELIAL CELL UR AURFX 12 /HPF (0-6)
[2017-08-13 15:31] LABS: LEUKOCYTE ESTERASE UR AUTO RFX TRACE (NEGATIVE); WBC, URINE AUTO RFX 40 /HPF (0-3)
[2017-08-13] MEDS ORDERED: MORPHINE 4 MG/ML 1ML VIAL (J2270) IV ×3 (16:15)
[2017-08-13] MEDS: KETOROLAC 60 MG/2 ML VIAL (J1885) IM ×3 (17:07)
[2017-08-13] MEDS: NS 1,000 ML IV ×3 (17:57)
[2017-08-13] MEDS: diphenhydrAMINE INJ 50MG/ML VIAL (J1200) IV ×3 (17:58)
[2017-08-13] MEDS: MORPHINE 4 MG/ML 1ML VIAL (J2270) IV ×3 (18:01)
[2017-08-13 18:08] LABS: BASO # 0.1 10^3/uL (0.0-0.2); BASO % 0.4 % (0.0-1.0); EOS # 0.3 10^3/uL (0.0-0.50); EOS % 2.9 % (0.0-3.0); HEMATOCRIT 34.6 % (36.0-47.0); HEMOGLOBIN 10.3 g/dl (12.0-16.0); IMMATURE GRANULOCYTE % 0.7 % (0-3.0); LYMPH # 3.2 10^3/uL (1.5-6.5); LYMPH % 27.6 % (24.0-44.0); MEAN CORPUSCULAR HEMOGLOBIN 22.2 pg (27.0-33.0); MEAN CORPUSCULAR HGB CONC 29.8 g/dl (32.0-36.5); MEAN CORPUSCULAR VOLUME 74.6 fl (80.0-96.0); MONO # 0.4 10^3/uL (0.0-0.8); MONO % 3.7 % (0.0-5.0); NEUTROPHILS # 7.6 10^3/uL (1.8-7.7); NEUTROPHILS % 64.7 % (36.0-66.0); PLATELET COUNT, AUTOMATED 412 10^3/uL (150-450); RED BLOOD COUNT 4.64 10^6/uL (4.00-5.40); RED CELL DISTRIBUTION WIDTH 18.3 % (11.5-14.5); WHITE BLOOD COUNT 11.7 10^3/uL (4.0-10.0)
[2017-08-13 18:25] LABS: ALBUMIN 3.3 GM/DL (3.2-5.2); ALKALINE PHOSPHATASE 158 U/L (45-117); ALT/SGPT 30 U/L (12-78); ANION GAP 7 MEQ/L (8-16); AST/SGOT 16 U/L (7-37); BILIRUBIN,TOTAL 0.3 MG/DL (0.2-1.0); BLOOD UREA NITROGEN 7 MG/DL (7-18); CALCIUM LEVEL 8.7 MG/DL (8.5-10.1); CARBON DIOXIDE LEVEL 28 MEQ/L (21-32); CHLORIDE LEVEL 106 MEQ/L (98-107); GLOMERULAR FILTRATION RATE > 60.0 (>60); GLUCOSE, FASTING 78 MG/DL (70-100); LIPASE 125 U/L (73-393); POTASSIUM SERUM 3.8 MEQ/L (3.5-5.1); SODIUM LEVEL 141 MEQ/L (136-145); TOTAL PROTEIN 7.4 GM/DL (6.4-8.2)
[2017-08-13 19:16] LABS: CONTROL LINE UCG INT CTR LINE PRESENT; URINE PREG TEST NEGATIVE (NEGATIVE)
[2017-08-13] MEDS: PHENAZOPYRIDINE 100 MG TAB PO ×3 (19:18)
== END 2017-08-13 19:19 | disposition home or self-care (01) ==
LOC: M ED 13:31
DX: N39.0 Urinary tract infection, site not specified (principal); G89.29 Other chronic pain; M54.5 Low back pain; Z87.440 Personal history of urinary (tract) infections; Z87.442 Personal history of urinary calculi; Z79.899 Other long term (current) drug therapy; Z88.8 Allergy status to other drugs, medicaments and biological substances; Z88.6 Allergy status to analgesic agent; Z88.2 Allergy status to sulfonamides
CPT/HCPCS: J2270

== ENCOUNTER 2017-09-05 13:43 | Emergency (ER) | payer OTHER ==
[2017-09-05] MEDS: NS 1,000 ML IV (14:09)
[2017-09-05] MEDS: ONDANSETRON 4MG/2ML VIAL (J2405) IV ×2 (14:09→14:47)
[2017-09-05] MEDS: HYDROmorphone HCL 1 MG/ML SYRINGE (J1170) IV ×2 (14:10→14:47)
[2017-09-05 14:12] LABS: BASO # 0.1 10^3/uL (0.0-0.2); BASO % 0.5 % (0.0-1.0); EOS # 0.5 10^3/uL (0.0-0.50); EOS % 3.6 % (0.0-3.0); HEMATOCRIT 35.4 % (36.0-47.0); HEMOGLOBIN 10.4 g/dl (12.0-16.0); IMMATURE GRANULOCYTE % 0.6 % (0-3.0); LYMPH # 3.4 10^3/uL (1.5-6.5); LYMPH % 24.8 % (24.0-44.0); MEAN CORPUSCULAR HEMOGLOBIN 21.9 pg (27.0-33.0); MEAN CORPUSCULAR HGB CONC 29.4 g/dl (32.0-36.5); MEAN CORPUSCULAR VOLUME 74.7 fl (80.0-96.0); MONO # 0.7 10^3/uL (0.0-0.8); MONO % 4.8 % (0.0-5.0); NEUTROPHILS # 9.1 10^3/uL (1.8-7.7); NEUTROPHILS % 65.7 % (36.0-66.0); PLATELET COUNT, AUTOMATED 522 10^3/uL (150-450); RED BLOOD COUNT 4.74 10^6/uL (4.00-5.40); RED CELL DISTRIBUTION WIDTH 17.6 % (11.5-14.5); WHITE BLOOD COUNT 13.8 10^3/uL (4.0-10.0)
[2017-09-05 14:14] LABS: KETONE, URINE AUTO RFX NEGATIVE (NEGATIVE); MUCUS, URINE RFX SMALL (NEGATIVE); NITRITE, URINE AUTO RFX NEGATIVE (NEGATIVE); RBC, URINE AUTO RFX TNTC /HPF (0-3); SPECIFIC GRAVITY UR AUTO RFX 1.029 (1.002-1.035); SQUAM EPITHELIAL CELL UR AURFX 6 /HPF (0-6); WBC, URINE AUTO RFX 3 /HPF (0-3)
[2017-09-05 14:15] LABS: LEUKOCYTE ESTERASE UR AUTO RFX TRACE (NEGATIVE)
[2017-09-05] MEDS ORDERED: diphenhydrAMINE INJ 50MG/ML VIAL (J1200) As Ordered (14:15)
[2017-09-05] MEDS: diphenhydrAMINE INJ 50MG/ML VIAL (J1200) IV ×2 (14:25→14:54)
[2017-09-05 14:44] LABS: ALBUMIN 3.5 GM/DL (3.2-5.2); ALBUMIN/GLOBULIN RATIO 0.76 (1.00-1.93); ALKALINE PHOSPHATASE 169 U/L (45-117); ALT/SGPT 28 U/L (12-78); AMYLASE 31 U/L (25-115); ANION GAP 8 MEQ/L (8-16); AST/SGOT 21 U/L (7-37); BILIRUBIN,DIRECT < 0.1 MG/DL (0.0-0.2); BILIRUBIN,TOTAL 0.3 MG/DL (0.2-1.0); BLOOD UREA NITROGEN 8 MG/DL (7-18); CALCIUM LEVEL 8.6 MG/DL (8.5-10.1); CARBON DIOXIDE LEVEL 26 MEQ/L (21-32); CHLORIDE LEVEL 106 MEQ/L (98-107); CREATININE FOR GFR 0.89 MG/DL (0.55-1.30); GLOMERULAR FILTRATION RATE > 60.0 (>60); GLUCOSE, FASTING 98 MG/DL (70-100); LIPASE 163 U/L (73-393); POTASSIUM SERUM 4.1 MEQ/L (3.5-5.1); SODIUM LEVEL 140 MEQ/L (136-145); TOTAL PROTEIN 8.1 GM/DL (6.4-8.2)
== END 2017-09-05 16:08 | disposition home or self-care (01) ==
LOC: M ED 13:43
DX: K52.9 Noninfective gastroenteritis and colitis, unspecified (principal); J45.909 Unspecified asthma, uncomplicated; M79.7 Fibromyalgia; G62.9 Polyneuropathy, unspecified; K21.9 Gastro-esophageal reflux disease without esophagitis; N80.9 Endometriosis, unspecified; F90.9 Attention-deficit hyperactivity disorder, unspecified type; F41.9 Anxiety disorder, unspecified; F33.9 Major depressive disorder, recurrent, unspecified; F43.10 Post-traumatic stress disorder, unspecified; Z91.5 Personal history of self-harm; Z88.2 Allergy status to sulfonamides; Z88.8 Allergy status to other drugs, medicaments and biological substances; Z79.899 Other long term (current) drug therapy; Z98.890 Other specified postprocedural states; Z87.820 Personal history of traumatic brain injury; Z86.2 Personal history of diseases of the blood and blood-forming organs and certain disorders involving the immune mechanism; Z87.19 Personal history of other diseases of the digestive system
CPT/HCPCS: J1170

== ENCOUNTER 2017-09-08 15:09 | Emergency (ER) | payer OTHER ==
[2017-09-08] MEDS: diphenhydrAMINE INJ 50MG/ML VIAL (J1200) IV ×2 (17:03→17:44)
[2017-09-08] MEDS: ONDANSETRON 4MG/2ML VIAL (J2405) IV (17:04)
[2017-09-08] MEDS: NS 1,000 ML IV (17:04)
[2017-09-08] MEDS: MORPHINE 4 MG/ML 1ML VIAL (J2270) IV (17:04)
[2017-09-08 17:17] LABS: KETONE, URINE AUTO RFX NEGATIVE (NEGATIVE); NITRITE, URINE AUTO RFX NEGATIVE (NEGATIVE); RBC, URINE AUTO RFX TNTC /HPF (0-3); SPECIFIC GRAVITY UR AUTO RFX 1.018 (1.002-1.035); SQUAM EPITHELIAL CELL UR AURFX 2 /HPF (0-6); WBC, URINE AUTO RFX 2 /HPF (0-3)
[2017-09-08 17:18] LABS: LEUKOCYTE ESTERASE UR AUTO RFX TRACE (NEGATIVE)
[2017-09-08 17:21] LABS: BASO # 0.1 10^3/uL (0.0-0.2); BASO % 0.4 % (0.0-1.0); EOS # 0.4 10^3/uL (0.0-0.50); EOS % 3.7 % (0.0-3.0); HEMATOCRIT 32.9 % (36.0-47.0); HEMOGLOBIN 9.7 g/dl (12.0-16.0); IMMATURE GRANULOCYTE % 0.4 % (0-3.0); LYMPH # 2.4 10^3/uL (1.5-6.5); LYMPH % 21.4 % (24.0-44.0); MEAN CORPUSCULAR HEMOGLOBIN 22.1 pg (27.0-33.0); MEAN CORPUSCULAR HGB CONC 29.5 g/dl (32.0-36.5); MEAN CORPUSCULAR VOLUME 75.1 fl (80.0-96.0); MONO # 0.5 10^3/uL (0.0-0.8); NEUTROPHILS # 7.9 10^3/uL (1.8-7.7); NEUTROPHILS % 70.1 % (36.0-66.0); PLATELET COUNT, AUTOMATED 427 10^3/uL (150-450); RED BLOOD COUNT 4.38 10^6/uL (4.00-5.40); RED CELL DISTRIBUTION WIDTH 17.4 % (11.5-14.5); WHITE BLOOD COUNT 11.2 10^3/uL (4.0-10.0)
[2017-09-08] MEDS: AZITHROMYCIN 250 MG TAB PO (17:44)
[2017-09-08 17:50] LABS: ALBUMIN 3.2 GM/DL (3.2-5.2); ALBUMIN/GLOBULIN RATIO 0.74 (1.00-1.93); ALKALINE PHOSPHATASE 141 U/L (45-117); ALT/SGPT 28 U/L (12-78); ANION GAP 6 MEQ/L (8-16); AST/SGOT 19 U/L (7-37); BILIRUBIN,DIRECT < 0.1 MG/DL (0.0-0.2); BILIRUBIN,TOTAL 0.2 MG/DL (0.2-1.0); BLOOD UREA NITROGEN 8 MG/DL (7-18); CALCIUM LEVEL 8.4 MG/DL (8.5-10.1); CARBON DIOXIDE LEVEL 28 MEQ/L (21-32); CHLORIDE LEVEL 107 MEQ/L (98-107); CREATININE FOR GFR 0.76 MG/DL (0.55-1.30); GLOMERULAR FILTRATION RATE > 60.0 (>60); GLUCOSE, FASTING 89 MG/DL (70-100); LIPASE 155 U/L (73-393); POTASSIUM SERUM 3.8 MEQ/L (3.5-5.1); SODIUM LEVEL 141 MEQ/L (136-145); TOTAL PROTEIN 7.5 GM/DL (6.4-8.2)
[2017-09-08] MEDS: cefTRIAXone SOD 2 GM in D5W MINI-BAG PLUS 50 ML IV (17:52)
[2017-09-08 21:59] LABS: CHLAMYDIA DNA AMPLIFICATION NEGATIVE (NEGATIVE); GC DNA AMPLIFICATION NEGATIVE (NEGATIVE)
== END 2017-09-08 18:22 | disposition home or self-care (01) ==
LOC: M ED 15:09
DX: A56.11 Chlamydial female pelvic inflammatory disease (principal); R10.9 Unspecified abdominal pain; R11.2 Nausea with vomiting, unspecified; I10 Essential (primary) hypertension; G43.909 Migraine, unspecified, not intractable, without status migrainosus; M79.7 Fibromyalgia; J45.909 Unspecified asthma, uncomplicated; K21.9 Gastro-esophageal reflux disease without esophagitis; E28.2 Polycystic ovarian syndrome; N80.9 Endometriosis, unspecified; Z87.442 Personal history of urinary calculi; Z79.899 Other long term (current) drug therapy; Z88.6 Allergy status to analgesic agent; Z88.8 Allergy status to other drugs, medicaments and biological substances; Z88.2 Allergy status to sulfonamides
CPT/HCPCS: J0696

== ENCOUNTER 2017-10-03 12:58 | Emergency (ER) | payer OTHER ==
[2017-10-03 13:36] LABS: CONTROL LINE UCG INT CTR LINE PRESENT; URINE PREG TEST NEGATIVE (NEGATIVE)
[2017-10-03 13:41] LABS: KETONE, URINE AUTO RFX NEGATIVE (NEGATIVE); LEUKOCYTE ESTERASE UR AUTO RFX NEGATIVE (NEGATIVE); MUCUS, URINE RFX SMALL (NEGATIVE); NITRITE, URINE AUTO RFX NEGATIVE (NEGATIVE); RBC, URINE AUTO RFX TNTC /HPF (0-3); SPECIFIC GRAVITY UR AUTO RFX 1.021 (1.002-1.035); SQUAM EPITHELIAL CELL UR AURFX 15 /HPF (0-6); WBC, URINE AUTO RFX 3 /HPF (0-3)
[2017-10-03] MEDS: ONDANSETRON 4MG/2ML VIAL (J2405) IV (14:42)
[2017-10-03] MEDS: diphenhydrAMINE INJ 50MG/ML VIAL (J1200) IV ×2 (14:42→17:37)
[2017-10-03] MEDS: MORPHINE 2 MG/ML 1ML SYRINGE (J2270) IV ×2 (14:43→15:56)
[2017-10-03] MEDS: NS 1,000 ML IV (14:43)
[2017-10-03 15:02] LABS: BASO # 0.1 10^3/uL (0.0-0.2); BASO % 0.6 % (0.0-1.0); EOS # 0.3 10^3/uL (0.0-0.50); EOS % 3.9 % (0.0-3.0); HEMATOCRIT 37.4 % (36.0-47.0); HEMOGLOBIN 10.9 g/dl (12.0-15.5); IMMATURE GRANULOCYTE % 0.3 % (0-3.0); LYMPH # 2.5 10^3/uL (1.5-6.5); LYMPH % 29.1 % (24.0-44.0); MEAN CORPUSCULAR HEMOGLOBIN 21.8 pg (27.0-33.0); MEAN CORPUSCULAR HGB CONC 29.1 g/dl (32.0-36.5); MEAN CORPUSCULAR VOLUME 74.9 fl (80.0-96.0); MONO # 0.3 10^3/uL (0.0-0.8); MONO % 3.9 % (0.0-5.0); NEUTROPHILS # 5.4 10^3/uL (1.8-7.7); NEUTROPHILS % 62.2 % (36.0-66.0); PLATELET COUNT, AUTOMATED 506 10^3/uL (150-450); RED BLOOD COUNT 4.99 10^6/uL (4.00-5.40); RED CELL DISTRIBUTION WIDTH 17.3 % (11.5-14.5); WHITE BLOOD COUNT 8.7 10^3/uL (4.0-10.0)
[2017-10-03 15:22] LABS: CONTROL LINE HCG INT CTR LINE PRESENT; HCG, SERUM QUALITATIVE NEGATIVE (NEGATIVE)
[2017-10-03 15:29] LABS: LACTIC ACID SEPSIS PROTOCOL 1.3 MMOL/L (0.4-2.0)
[2017-10-03 15:29] LABS: ALBUMIN/GLOBULIN RATIO 0.87 (1.00-1.93); ALKALINE PHOSPHATASE 161 U/L (45-117); ALT/SGPT 37 U/L (12-78); ANION GAP 8 MEQ/L (8-16); AST/SGOT 21 U/L (7-37); BILIRUBIN,DIRECT < 0.1 MG/DL (0.0-0.2); BILIRUBIN,TOTAL 0.4 MG/DL (0.2-1.0); BLOOD UREA NITROGEN 9 MG/DL (7-18); CALCIUM LEVEL 9.4 MG/DL (8.5-10.1); CARBON DIOXIDE LEVEL 28 MEQ/L (21-32); CHLORIDE LEVEL 104 MEQ/L (98-107); CREATININE FOR GFR 0.79 MG/DL (0.55-1.30); GLOMERULAR FILTRATION RATE > 60.0 (>60); GLUCOSE, FASTING 80 MG/DL (70-100); LIPASE 154 U/L (73-393); POTASSIUM SERUM 3.9 MEQ/L (3.5-5.1); SODIUM LEVEL 140 MEQ/L (136-145); TOTAL PROTEIN 8.6 GM/DL (6.4-8.2)
[2017-10-03] MEDS ORDERED: ISOVUE-370 76% 100ML VIAL (Q9967) As Ordered (15:33)
[2017-10-03] MEDS: PROMETHAZINE INJ 25 MG/ML VIAL (J2550) IV (16:45)
[2017-10-03] MEDS: MORPHINE 4 MG/ML 1ML VIAL/SYRINGE (J2270) IV (16:51)
[2017-10-03] MEDS: LORazepam 2 MG/ML VIAL (J2060) IV (16:52)
[2017-10-03 17:59] LABS: CHLAMYDIA DNA AMPLIFICATION NEGATIVE (NEGATIVE); GC DNA AMPLIFICATION NEGATIVE (NEGATIVE)
== END 2017-10-03 18:35 | disposition home or self-care (01) ==
LOC: M ED 12:58
DX: R31.9 Hematuria, unspecified (principal); F43.10 Post-traumatic stress disorder, unspecified; F41.9 Anxiety disorder, unspecified; F33.9 Major depressive disorder, recurrent, unspecified; Z79.899 Other long term (current) drug therapy; Z98.890 Other specified postprocedural states; Z88.2 Allergy status to sulfonamides; Z87.42 Personal history of other diseases of the female genital tract
CPT/HCPCS: J2270

== ENCOUNTER 2017-10-05 12:04 | Inpatient (IN) | payer MEDICAID, OTHER ==
[2017-10-05 13:29] LABS: HEMATOCRIT 34.8 % (36.0-47.0); HEMOGLOBIN 10.3 g/dl (12.0-15.5); MEAN CORPUSCULAR HEMOGLOBIN 21.9 pg (27.0-33.0); MEAN CORPUSCULAR HGB CONC 29.6 g/dl (32.0-36.5); PLATELET COUNT, AUTOMATED 427 10^3/uL (150-450); RED CELL DISTRIBUTION WIDTH 17.4 % (11.5-14.5); WHITE BLOOD COUNT 6.9 10^3/uL (4.0-10.0)
[2017-10-05 14:01] LABS: ALBUMIN 3.5 GM/DL (3.2-5.2); ALBUMIN/GLOBULIN RATIO 0.83 (1.00-1.93); ALKALINE PHOSPHATASE 155 U/L (45-117); ALT/SGPT 39 U/L (12-78); ANION GAP 9 MEQ/L (8-16); AST/SGOT 19 U/L (7-37); BILIRUBIN,DIRECT < 0.1 MG/DL (0.0-0.2); BILIRUBIN,TOTAL 0.2 MG/DL (0.2-1.0); BLOOD UREA NITROGEN 11 MG/DL (7-18); CALCIUM LEVEL 8.9 MG/DL (8.5-10.1); CARBON DIOXIDE LEVEL 23 MEQ/L (21-32); CHLORIDE LEVEL 108 MEQ/L (98-107); CREATININE FOR GFR 0.78 MG/DL (0.55-1.30); ETHYL ALCOHOL (ETHANOL) < 0.003 % (0.000-0.010); GLOMERULAR FILTRATION RATE > 60.0 (>60); GLUCOSE, FASTING 93 MG/DL (70-100); POTASSIUM SERUM 3.9 MEQ/L (3.5-5.1); SALICYLATE LEVEL < 1.7 MG/DL (5.0-30.0); SODIUM LEVEL 140 MEQ/L (136-145); THYROID STIMULATING HORMONE 0.341 uIU/ML (0.358-3.740); TOTAL PROTEIN 7.7 GM/DL (6.4-8.2)
[2017-10-05 14:05] LABS: ACETAMINOPHEN LEVEL < 2.0 UG/ML (10.0-30.0)
[2017-10-05 14:17] LABS: AMPHETAMINES LEVEL URINE NEGATIVE (NEGATIVE); BARBITURATES URINE NEGATIVE (NEGATIVE); BENZODIAZEPINES URINE NEGATIVE (NEGATIVE); CANNABINOIDS URINE NEGATIVE (NEGATIVE); COCAINE METABOLITE URINE NEGATIVE (NEGATIVE); METHADONE URINE NEGATIVE (NEGATIVE); OPIATES URINE NEGATIVE (NEGATIVE); PHENCYCLIDINE URINE NEGATIVE (NEGATIVE)
[2017-10-05] MEDS: LORazepam 0.5 MG TAB PO (14:32)
[2017-10-05] MEDS ORDERED: traZODone 50 MG TAB PO (15:45)
[2017-10-05] MEDS ORDERED: MAALOX 30 ML SUSP *UDC PO (15:45)
[2017-10-05] MEDS ORDERED: ACETAMINOPHEN TAB 650MG DOSE (2X325MG) PO (15:45)
[2017-10-05] MEDS ORDERED: MOM 30ML SUSPENSION UDC PO (15:45)
[2017-10-05] MEDS ORDERED: ONDANSETRON 4 MG ORAL DISINTEGRATING TAB (Q0162 PER 1MG) PO (18:30)
[2017-10-05] MEDS: PERCOCET 5MG/325MG TAB PO (18:52)
[2017-10-05] MEDS: IBUPROFEN 600 MG TAB PO (18:52)
[2017-10-05] MEDS: clonazePAM 1 MG TAB PO (20:20)
[2017-10-05] MEDS: GABAPENTIN 300 MG CAP PO (20:20)
[2017-10-05] MEDS: zolPIDEM TARTRATE 10MG TAB PO (20:20)
[2017-10-05] MEDS: DOCUSATE SODIUM 100 MG CAP PO (20:21)
[2017-10-06] MEDS: PERCOCET 5MG/325MG TAB PO ×3 (06:13→18:32)
[2017-10-06] MEDS: IBUPROFEN 600 MG TAB PO ×2 (06:14→18:33)
[2017-10-06] MEDS: clonazePAM 1 MG TAB PO ×2 (08:25→17:13)
[2017-10-06] MEDS: METHYLPHENIDATE 5 MG TAB PO (08:26)
[2017-10-06] MEDS: metFORMIN (GLUCOPHAGE) 500 MG TAB PO ×2 (08:26→18:31)
[2017-10-06] MEDS: LACTOBACILLUS ACIDOPHILUS CAP (BACID) PO (08:26)
[2017-10-06] MEDS: OMEPRAZOLE 20 MG CAP PO (08:26)
[2017-10-06] MEDS: FERROUS GLUCONATE 324 MG TAB PO (08:26)
[2017-10-06] MEDS: GABAPENTIN 300 MG CAP PO ×3 (08:26→20:23)
[2017-10-06] MEDS: DOCUSATE SODIUM 100 MG CAP PO ×2 (08:27→20:46)
[2017-10-06 09:45] LABS: CONTROL LINE HCG INT CTR LINE PRESENT; HCG, SERUM QUALITATIVE NEGATIVE (NEGATIVE)
[2017-10-06] MEDS: PARoxetine 20 MG TAB PO (12:26)
[2017-10-06] MEDS: CARISOPRODOL 350 MG TAB PO (14:13)
[2017-10-06] MEDS ORDERED: CARISOPRODOL 350 MG TAB PO (16:00)
[2017-10-06] MEDS: zolPIDEM TARTRATE 5 MG TAB PO (20:23)
[2017-10-07] MEDS: IBUPROFEN 600 MG TAB PO ×2 (04:35→12:46)
[2017-10-07] MEDS: PERCOCET 5MG/325MG TAB PO ×3 (04:36→16:43)
[2017-10-07] MEDS: CARISOPRODOL 350 MG TAB PO ×2 (04:38→12:46)
[2017-10-07 08:19] LABS: HEMATOCRIT 34.4 % (36.0-47.0); MEAN CORPUSCULAR HEMOGLOBIN 21.9 pg (27.0-33.0); MEAN CORPUSCULAR HGB CONC 29.1 g/dl (32.0-36.5); MEAN CORPUSCULAR VOLUME 75.3 fl (80.0-96.0); PLATELET COUNT, AUTOMATED 373 10^3/uL (150-450); RED BLOOD COUNT 4.57 10^6/uL (4.00-5.40); RED CELL DISTRIBUTION WIDTH 17.6 % (11.5-14.5); WHITE BLOOD COUNT 6.8 10^3/uL (4.0-10.0)
[2017-10-07] MEDS: GABAPENTIN 300 MG CAP PO ×2 (08:23→16:42)
[2017-10-07] MEDS: clonazePAM 1 MG TAB PO ×2 (08:24→17:13)
[2017-10-07] MEDS: PARoxetine 20 MG TAB PO (08:24)
[2017-10-07] MEDS: metFORMIN (GLUCOPHAGE) 500 MG TAB PO ×2 (08:24→17:13)
[2017-10-07] MEDS: LACTOBACILLUS ACIDOPHILUS CAP (BACID) PO (08:24)
[2017-10-07] MEDS: FERROUS GLUCONATE 324 MG TAB PO (08:24)
[2017-10-07] MEDS: DOCUSATE SODIUM 100 MG CAP PO (08:24)
[2017-10-07] MEDS: OMEPRAZOLE 20 MG CAP PO (08:24)
[2017-10-07 08:52] LABS: CHOLESTEROL LEVEL 201 MG/DL (<200); CHOLESTEROL RISK RATIO 5.911 (<5); FREE THYROXINE INDEX 3.2 % (1.3-4.8); HDL CHOLESTEROL 34 MG/DL (>40); LDL CHOLESTEROL 120.2 MG/DL (<100); NON-HDL-C 167 MG/DL; T UPTAKE 35 % (30-39); THYROXINE (T4) 9.1 UG/DL (4.5-12.0); TRIGLYCERIDES LEVEL 234 MG/DL (<150)
[2017-10-07 09:46] LABS: ESTIMATED AVERAGE GLUCOSE 100 MG/DL (60-110); HEMOGLOBIN A1c 5.1 %
== END 2017-10-07 16:32 | disposition home or self-care (01) | DRG 885 ==
LOC: M ED 12:04 → M ED INP 15:32 → M PSY 17:11
DX: F33.9 Major depressive disorder, recurrent, unspecified (principal); F11.20 Opioid dependence, uncomplicated; F15.20 Other stimulant dependence, uncomplicated; Z68.43 Body mass index [BMI] 50.0-59.9, adult; S62.102D Fracture of unspecified carpal bone, left wrist, subsequent encounter for fracture with routine healing; F41.9 Anxiety disorder, unspecified; M79.7 Fibromyalgia; R94.6 Abnormal results of thyroid function studies; E66.9 Obesity, unspecified; E11.9 Type 2 diabetes mellitus without complications; K21.9 Gastro-esophageal reflux disease without esophagitis; F60.3 Borderline personality disorder; Z91.5 Personal history of self-harm; Z79.899 Other long term (current) drug therapy; Z88.2 Allergy status to sulfonamides; Z88.6 Allergy status to analgesic agent; Z88.8 Allergy status to other drugs, medicaments and biological substances; Z90.49 Acquired absence of other specified parts of digestive tract; X58.XXXD Exposure to other specified factors, subsequent encounter

== ENCOUNTER → 2017-10-14 | Outpatient (REF) | payer MEDICAID | LOC: M LAB REF 14:06 | DX: Z12.4 Encounter for screening for malignant neoplasm of cervix (principal) ==

== ENCOUNTER 2017-11-18 12:21 | Emergency (ER) | payer OTHER ==
[2017-11-18] MEDS: diphenhydrAMINE INJ 50MG/ML VIAL (J1200) IV (13:40)
[2017-11-18] MEDS: ONDANSETRON 4MG/2ML VIAL (J2405) IV ×2 (13:40→14:27)
[2017-11-18] MEDS: NS 1,000 ML IV (13:40)
[2017-11-18] MEDS: MORPHINE 4 MG/ML 1ML VIAL/SYRINGE (J2270) IV ×2 (13:45→14:29)
[2017-11-18 13:46] LABS: BASO % 0.4 % (0.0-1.0); EOS # 0.5 10^3/uL (0.0-0.50); EOS % 4.5 % (0.0-3.0); HEMATOCRIT 34.2 % (36.0-47.0); IMMATURE GRANULOCYTE % 0.5 % (0-3.0); LYMPH # 2.2 10^3/uL (1.5-6.5); LYMPH % 22.3 % (24.0-44.0); MEAN CORPUSCULAR HEMOGLOBIN 21.8 pg (27.0-33.0); MEAN CORPUSCULAR HGB CONC 29.2 g/dl (32.0-36.5); MEAN CORPUSCULAR VOLUME 74.7 fl (80.0-96.0); MONO # 0.3 10^3/uL (0.0-0.8); NEUTROPHILS # 6.9 10^3/uL (1.8-7.7); NEUTROPHILS % 69.3 % (36.0-66.0); PLATELET COUNT, AUTOMATED 378 10^3/uL (150-450); RED BLOOD COUNT 4.58 10^6/uL (4.00-5.40); RED CELL DISTRIBUTION WIDTH 18.1 % (11.5-14.5)
[2017-11-18 13:55] LABS: CONTROL LINE UCG INT CTR LINE PRESENT; URINE PREG TEST NEGATIVE (NEGATIVE)
[2017-11-18 13:57] LABS: PROTHROMBIN TIME 12.2 SECONDS (12.4-14.5)
[2017-11-18 13:58] LABS: PARTIAL THROMBOPLASTIN TIME 30.9 SECONDS (26.8-37.9)
[2017-11-18 14:05] LABS: KETONE, URINE AUTO RFX NEGATIVE (NEGATIVE); MUCUS, URINE RFX SMALL (NEGATIVE); NITRITE, URINE AUTO RFX NEGATIVE (NEGATIVE); RBC, URINE AUTO RFX TNTC /HPF (0-3); SPECIFIC GRAVITY UR AUTO RFX 1.028 (1.002-1.035); SQUAM EPITHELIAL CELL UR AURFX 4 /HPF (0-6); WBC, URINE AUTO RFX 4 /HPF (0-3)
[2017-11-18 14:09] LABS: ALBUMIN 3.2 GM/DL (3.2-5.2); ALBUMIN/GLOBULIN RATIO 0.84 (1.00-1.93); ALKALINE PHOSPHATASE 118 U/L (45-117); ALT/SGPT 19 U/L (12-78); ANION GAP 7 MEQ/L (8-16); AST/SGOT 16 U/L (7-37); BILIRUBIN,DIRECT < 0.1 MG/DL (0.0-0.2); BILIRUBIN,TOTAL 0.1 MG/DL (0.2-1.0); BLOOD UREA NITROGEN 8 MG/DL (7-18); CALCIUM LEVEL 8.9 MG/DL (8.5-10.1); CARBON DIOXIDE LEVEL 26 MEQ/L (21-32); CHLORIDE LEVEL 109 MEQ/L (98-107); CREATININE FOR GFR 0.72 MG/DL (0.55-1.30); GLOMERULAR FILTRATION RATE > 60.0 (>60); GLUCOSE, FASTING 98 MG/DL (70-100); LIPASE 101 U/L (73-393); POTASSIUM SERUM 4.1 MEQ/L (3.5-5.1); SODIUM LEVEL 142 MEQ/L (136-145)
[2017-11-18 14:12] LABS: LACTIC ACID SEPSIS PROTOCOL 1.4 MMOL/L (0.4-2.0)
[2017-11-18 14:14] LABS: LEUKOCYTE ESTERASE UR AUTO RFX TRACE (NEGATIVE)
[2017-11-18] MEDS ORDERED: ISOVUE-370 76% 100ML VIAL (Q9967) As Ordered (14:20)
[2017-11-18] MEDS: PERCOCET 5MG/325MG TAB PO (15:28)
== END 2017-11-18 15:52 | disposition home or self-care (01) ==
LOC: M ED 12:21
DX: G89.29 Other chronic pain (principal); R10.9 Unspecified abdominal pain; R31.9 Hematuria, unspecified; R11.2 Nausea with vomiting, unspecified; M79.7 Fibromyalgia; G62.9 Polyneuropathy, unspecified; K21.9 Gastro-esophageal reflux disease without esophagitis; Z79.899 Other long term (current) drug therapy; Z88.2 Allergy status to sulfonamides; Z88.8 Allergy status to other drugs, medicaments and biological substances
CPT/HCPCS: J2270

== ENCOUNTER 2017-11-19 16:05 | Emergency (ER) | payer OTHER ==
[2017-11-19] MEDS: NORCO, ANEXSIA 5/325MG TABLET (HYDROcodone/ACETAMINOPHEN) PO (17:48)
[2017-11-19] MEDS: TRIMETHOBENZAMIDE HCL INJ 200 MG/2 ML VIAL (J3250) IM (17:48)
== END 2017-11-19 18:08 | disposition home or self-care (01) ==
LOC: M ED 16:05
DX: G89.29 Other chronic pain (principal); R10.9 Unspecified abdominal pain; I10 Essential (primary) hypertension; M79.7 Fibromyalgia; J45.909 Unspecified asthma, uncomplicated; F41.9 Anxiety disorder, unspecified; F32.9 Major depressive disorder, single episode, unspecified; F90.9 Attention-deficit hyperactivity disorder, unspecified type; Z87.442 Personal history of urinary calculi; Z79.899 Other long term (current) drug therapy; Z88.6 Allergy status to analgesic agent; Z88.2 Allergy status to sulfonamides; Z88.8 Allergy status to other drugs, medicaments and biological substances
CPT/HCPCS: J3250

== ENCOUNTER 2017-12-28 17:01 | Emergency (ER) | payer OTHER ==
[2017-12-28 18:35] LABS: BASO # 0.1 10^3/uL (0.0-0.2); BASO % 0.5 % (0.0-1.0); EOS # 0.8 10^3/uL (0.0-0.50); EOS % 6.7 % (0.0-3.0); HEMATOCRIT 34.4 % (36.0-47.0); HEMOGLOBIN 10.1 g/dl (12.0-15.5); IMMATURE GRANULOCYTE % 0.4 % (0-3.0); LYMPH # 3.3 10^3/uL (1.5-6.5); LYMPH % 29.2 % (24.0-44.0); MEAN CORPUSCULAR HEMOGLOBIN 22.2 pg (27.0-33.0); MEAN CORPUSCULAR HGB CONC 29.4 g/dl (32.0-36.5); MEAN CORPUSCULAR VOLUME 75.8 fl (80.0-96.0); MONO # 0.4 10^3/uL (0.0-0.8); MONO % 3.6 % (0.0-5.0); NEUTROPHILS # 6.7 10^3/uL (1.8-7.7); NEUTROPHILS % 59.6 % (36.0-66.0); PLATELET COUNT, AUTOMATED 394 10^3/uL (150-450); RED BLOOD COUNT 4.54 10^6/uL (4.00-5.40); RED CELL DISTRIBUTION WIDTH 17.6 % (11.5-14.5); WHITE BLOOD COUNT 11.2 10^3/uL (4.0-10.0)
[2017-12-28] MEDS: GI COCKTAIL 50ML BTL(HYOSCYAMINE/MAALOX/LIDOCAINE VISCOUS)(1:3:1) PO (18:43)
[2017-12-28] MEDS: ONDANSETRON 4MG/2ML VIAL (J2405) IV (18:43)
[2017-12-28] MEDS: NS 1,000 ML IV (18:43)
[2017-12-28 18:54] LABS: CONTROL LINE HCG INT CTR LINE PRESENT; HCG, SERUM QUALITATIVE NEGATIVE (NEGATIVE)
[2017-12-28 18:58] LABS: KETONE, URINE AUTO RFX NEGATIVE (NEGATIVE); LEUKOCYTE ESTERASE UR AUTO RFX NEGATIVE (NEGATIVE); RBC, URINE AUTO RFX TNTC /HPF (0-3); SPECIFIC GRAVITY UR AUTO RFX 1.019 (1.002-1.035); SQUAM EPITHELIAL CELL UR AURFX 4 /HPF (0-6); WBC, URINE AUTO RFX 3 /HPF (0-3)
[2017-12-28 19:00] LABS: ALBUMIN 3.1 GM/DL (3.2-5.2); ALKALINE PHOSPHATASE 159 U/L (45-117); ALT/SGPT 27 U/L (12-78); AMYLASE 35 U/L (25-115); ANION GAP 9 MEQ/L (8-16); AST/SGOT 19 U/L (7-37); BILIRUBIN,DIRECT < 0.1 MG/DL (0.0-0.2); BILIRUBIN,TOTAL 0.1 MG/DL (0.2-1.0); BLOOD UREA NITROGEN 7 MG/DL (7-18); CALCIUM LEVEL 8.3 MG/DL (8.5-10.1); CARBON DIOXIDE LEVEL 28 MEQ/L (21-32); CHLORIDE LEVEL 106 MEQ/L (98-107); CREATININE FOR GFR 0.86 MG/DL (0.55-1.30); GLOMERULAR FILTRATION RATE > 60.0 (>60); GLUCOSE, FASTING 83 MG/DL (70-100); LIPASE 200 U/L (73-393); NITRITE, URINE AUTO RFX POSITIVE (NEGATIVE); POTASSIUM SERUM 3.8 MEQ/L (3.5-5.1); SODIUM LEVEL 143 MEQ/L (136-145); TOTAL PROTEIN 7.5 GM/DL (6.4-8.2)
[2017-12-28] MEDS: diphenhydrAMINE INJ 50MG/ML VIAL (J1200) IV (19:38)
[2017-12-28] MEDS: MORPHINE 4 MG/ML 1ML VIAL/SYRINGE (J2270) IV (19:39)
[2017-12-28] MEDS: CEPHALEXIN 500 MG CAP PO (20:49)
== END 2017-12-28 20:59 | disposition home or self-care (01) ==
LOC: M ED 17:01
DX: N30.90 Cystitis, unspecified without hematuria (principal); R10.9 Unspecified abdominal pain; I10 Essential (primary) hypertension; N80.9 Endometriosis, unspecified; M79.7 Fibromyalgia; G43.909 Migraine, unspecified, not intractable, without status migrainosus; K21.9 Gastro-esophageal reflux disease without esophagitis; Z87.442 Personal history of urinary calculi; Z87.19 Personal history of other diseases of the digestive system; Z88.8 Allergy status to other drugs, medicaments and biological substances; Z88.2 Allergy status to sulfonamides; Z79.899 Other long term (current) drug therapy
CPT/HCPCS: J2270

== ENCOUNTER 2018-01-13 12:07 | Emergency (ER) | payer OTHER ==
[2018-01-13] MEDS ORDERED: NS 1,000 ML IV (12:45)
[2018-01-13 12:54] LABS: KETONE, URINE AUTO RFX NEGATIVE (NEGATIVE); LEUKOCYTE ESTERASE UR AUTO RFX NEGATIVE (NEGATIVE); MUCUS, URINE RFX SMALL (NEGATIVE); NITRITE, URINE AUTO RFX NEGATIVE (NEGATIVE); RBC, URINE AUTO RFX TNTC /HPF (0-3); SPECIFIC GRAVITY UR AUTO RFX 1.029 (1.002-1.035); SQUAM EPITHELIAL CELL UR AURFX 3 /HPF (0-6); WBC, URINE AUTO RFX 19 /HPF (0-3)
[2018-01-13] MEDS: PROMETHAZINE INJ 25 MG/ML VIAL (J2550) IM (12:54)
[2018-01-13 13:13] LABS: BASO % 0.2 % (0.0-1.0); EOS # 0.5 10^3/uL (0.0-0.50); EOS % 4.1 % (0.0-3.0); HEMATOCRIT 34.8 % (36.0-47.0); HEMOGLOBIN 10.4 g/dl (12.0-15.5); IMMATURE GRANULOCYTE % 0.3 % (0-3.0); LYMPH # 2.8 10^3/uL (1.5-6.5); LYMPH % 22.8 % (24.0-44.0); MEAN CORPUSCULAR HEMOGLOBIN 21.9 pg (27.0-33.0); MEAN CORPUSCULAR HGB CONC 29.9 g/dl (32.0-36.5); MEAN CORPUSCULAR VOLUME 73.4 fl (80.0-96.0); MONO # 0.5 10^3/uL (0.0-0.8); MONO % 4.2 % (0.0-5.0); NEUTROPHILS # 8.3 10^3/uL (1.8-7.7); NEUTROPHILS % 68.4 % (36.0-66.0); PLATELET COUNT, AUTOMATED 451 10^3/uL (150-450); RED BLOOD COUNT 4.74 10^6/uL (4.00-5.40); WHITE BLOOD COUNT 12.1 10^3/uL (4.0-10.0)
[2018-01-13 13:37] LABS: ALBUMIN 3.4 GM/DL (3.2-5.2); ALBUMIN/GLOBULIN RATIO 0.77 (1.00-1.93); ALKALINE PHOSPHATASE 135 U/L (45-117); ALT/SGPT 29 U/L (12-78); ANION GAP 7 MEQ/L (8-16); AST/SGOT 16 U/L (7-37); BILIRUBIN,DIRECT < 0.1 MG/DL (0.0-0.2); BILIRUBIN,TOTAL 0.2 MG/DL (0.2-1.0); BLOOD UREA NITROGEN 10 MG/DL (7-18); CALCIUM LEVEL 9.1 MG/DL (8.5-10.1); CARBON DIOXIDE LEVEL 29 MEQ/L (21-32); CHLORIDE LEVEL 107 MEQ/L (98-107); CREATININE FOR GFR 0.79 MG/DL (0.55-1.30); GLOMERULAR FILTRATION RATE > 60.0 (>60); GLUCOSE, FASTING 97 MG/DL (70-100); LIPASE 177 U/L (73-393); POTASSIUM SERUM 3.8 MEQ/L (3.5-5.1); SODIUM LEVEL 143 MEQ/L (136-145); TOTAL PROTEIN 7.8 GM/DL (6.4-8.2)
[2018-01-13] MEDS: LIDOCAINE 5% (LIDODERM) PATCH TD (13:58)
[2018-01-13] MEDS: LORATADINE 10 MG TAB PO (13:58)
[2018-01-13] MEDS ORDERED: **NOTE PATIENT COMMENT** MISC XX (21:00)
== END 2018-01-13 14:18 | disposition home or self-care (01) ==
LOC: M ED 12:07
DX: R10.11 Right upper quadrant pain (principal); R11.2 Nausea with vomiting, unspecified; Z79.899 Other long term (current) drug therapy; Z88.2 Allergy status to sulfonamides; Z88.8 Allergy status to other drugs, medicaments and biological substances; F17.210 Nicotine dependence, cigarettes, uncomplicated
CPT/HCPCS: 83690

== ENCOUNTER 2018-01-29 15:43 | Emergency (ER) | payer OTHER | END 2018-01-29 17:54 | disposition home or self-care (01) | LOC: M ED 15:43 | DX: K08.89 Other specified disorders of teeth and supporting structures (principal); K13.79 Other lesions of oral mucosa; I10 Essential (primary) hypertension; M79.7 Fibromyalgia; G43.909 Migraine, unspecified, not intractable, without status migrainosus; F17.200 Nicotine dependence, unspecified, uncomplicated; Z79.899 Other long term (current) drug therapy | CPT/HCPCS: 99283 ==

== ENCOUNTER 2018-01-31 17:24 | Emergency (ER) | payer OTHER ==
[2018-01-31] MEDS: OXYCODONE/APAP 5MG/325MG(BULK FOR ED) 1 TABLET PO (18:02)
== END 2018-01-31 18:22 | disposition home or self-care (01) ==
LOC: M ED 17:24
DX: K02.9 Dental caries, unspecified (principal); J45.909 Unspecified asthma, uncomplicated; K21.9 Gastro-esophageal reflux disease without esophagitis; M79.7 Fibromyalgia; G62.9 Polyneuropathy, unspecified; F43.10 Post-traumatic stress disorder, unspecified; F19.11 Other psychoactive substance abuse, in remission; Z88.8 Allergy status to other drugs, medicaments and biological substances; Z88.2 Allergy status to sulfonamides; Z79.899 Other long term (current) drug therapy
CPT/HCPCS: 99282

== ENCOUNTER 2018-02-04 11:49 | Emergency (ER) | payer OTHER ==
[2018-02-04 12:29] LABS: KETONE, URINE AUTO RFX TRACE mg/dL (NEGATIVE); LEUKOCYTE ESTERASE UR AUTO RFX NEGATIVE (NEGATIVE); MUCUS, URINE RFX LARGE (NEGATIVE); NITRITE, URINE AUTO RFX NEGATIVE (NEGATIVE); RBC, URINE AUTO RFX TNTC /HPF (0-3); SPECIFIC GRAVITY UR AUTO RFX 1.034 (1.002-1.035); SQUAM EPITHELIAL CELL UR AURFX 10 /HPF (0-6); WBC, URINE AUTO RFX 2 /HPF (0-3)
[2018-02-04] MEDS: NS 1,000 ML IV (13:30)
[2018-02-04] MEDS: MORPHINE 4 MG/ML 1ML VIAL/SYRINGE (J2270) IV (13:30)
[2018-02-04 14:01] LABS: BASO % 0.3 % (0.0-1.0); EOS # 0.3 10^3/uL (0.0-0.50); EOS % 3.3 % (0.0-3.0); HEMATOCRIT 30.7 % (36.0-47.0); HEMOGLOBIN 9.4 g/dl (12.0-15.5); IMMATURE GRANULOCYTE % 0.3 % (0-3.0); LYMPH # 2.4 10^3/uL (1.5-6.5); LYMPH % 24.3 % (24.0-44.0); MEAN CORPUSCULAR HEMOGLOBIN 22.3 pg (27.0-33.0); MEAN CORPUSCULAR HGB CONC 30.6 g/dl (32.0-36.5); MEAN CORPUSCULAR VOLUME 72.9 fl (80.0-96.0); MONO # 0.4 10^3/uL (0.0-0.8); MONO % 3.9 % (0.0-5.0); NEUTROPHILS # 6.7 10^3/uL (1.8-7.7); NEUTROPHILS % 67.9 % (36.0-66.0); PLATELET COUNT, AUTOMATED 344 10^3/uL (150-450); RED BLOOD COUNT 4.21 10^6/uL (4.00-5.40); RED CELL DISTRIBUTION WIDTH 18.2 % (11.5-14.5); WHITE BLOOD COUNT 9.9 10^3/uL (4.0-10.0)
[2018-02-04 14:24] LABS: ALBUMIN 2.9 GM/DL (3.2-5.2); ALBUMIN/GLOBULIN RATIO 0.73 (1.00-1.93); ALKALINE PHOSPHATASE 145 U/L (45-117); ALT/SGPT 28 U/L (12-78); ANION GAP 7 MEQ/L (8-16); AST/SGOT 14 U/L (7-37); BILIRUBIN,TOTAL 0.1 MG/DL (0.2-1.0); BLOOD UREA NITROGEN 10 MG/DL (7-18); CALCIUM LEVEL 8.4 MG/DL (8.5-10.1); CARBON DIOXIDE LEVEL 28 MEQ/L (21-32); CHLORIDE LEVEL 106 MEQ/L (98-107); CREATININE FOR GFR 0.72 MG/DL (0.55-1.30); GLOMERULAR FILTRATION RATE > 60.0 (>60); GLUCOSE, FASTING 83 MG/DL (70-100); LIPASE 130 U/L (73-393); POTASSIUM SERUM 3.9 MEQ/L (3.5-5.1); SODIUM LEVEL 141 MEQ/L (136-145); TOTAL PROTEIN 6.9 GM/DL (6.4-8.2)
[2018-02-04] MEDS: PERCOCET 5MG/325MG TAB PO (15:59)
== END 2018-02-04 16:01 | disposition home or self-care (01) ==
LOC: M ED 11:49
DX: R31.9 Hematuria, unspecified (principal); K08.89 Other specified disorders of teeth and supporting structures; K04.7 Periapical abscess without sinus; I10 Essential (primary) hypertension; N80.9 Endometriosis, unspecified; M79.7 Fibromyalgia; F17.200 Nicotine dependence, unspecified, uncomplicated
CPT/HCPCS: J2270

== ENCOUNTER 2018-02-23 12:14 | Emergency (ER) | payer OTHER | END 2018-02-23 14:10 | disposition home or self-care (01) | LOC: M ED 12:14 | DX: K08.89 Other specified disorders of teeth and supporting structures (principal); I10 Essential (primary) hypertension; Z88.2 Allergy status to sulfonamides; F17.210 Nicotine dependence, cigarettes, uncomplicated; Z88.8 Allergy status to other drugs, medicaments and biological substances; Z79.899 Other long term (current) drug therapy | CPT/HCPCS: 99282 ==

== ENCOUNTER 2018-03-13 10:55 | Emergency (ER) | payer OTHER ==
[2018-03-13] MEDS: ONDANSETRON 4MG/2ML VIAL (J2405) IV ×2 (12:38→14:30)
[2018-03-13] MEDS: MORPHINE 2 MG/ML 1ML SYRINGE (J2270) IV ×2 (12:38→14:31)
[2018-03-13] MEDS: NS 1,000 ML IV (12:39)
[2018-03-13] MEDS: diphenhydrAMINE INJ 50MG/ML VIAL (J1200) IV (12:39)
[2018-03-13 12:45] LABS: BASO % 0.5 % (0.0-1.0); EOS # 0.4 10^3/uL (0.0-0.50); EOS % 4.8 % (0.0-3.0); HEMATOCRIT 34.7 % (36.0-47.0); HEMOGLOBIN 10.3 g/dl (12.0-15.5); IMMATURE GRANULOCYTE % 0.5 % (0-3.0); LYMPH # 1.6 10^3/uL (1.5-6.5); LYMPH % 21.5 % (24.0-44.0); MEAN CORPUSCULAR HEMOGLOBIN 22.2 pg (27.0-33.0); MEAN CORPUSCULAR HGB CONC 29.7 g/dl (32.0-36.5); MEAN CORPUSCULAR VOLUME 74.8 fl (80.0-96.0); MONO # 0.3 10^3/uL (0.0-0.8); MONO % 3.7 % (0.0-5.0); NEUTROPHILS # 5.1 10^3/uL (1.8-7.7); PLATELET COUNT, AUTOMATED 380 10^3/uL (150-450); RED BLOOD COUNT 4.64 10^6/uL (4.00-5.40); RED CELL DISTRIBUTION WIDTH 17.8 % (11.5-14.5); WHITE BLOOD COUNT 7.4 10^3/uL (4.0-10.0)
[2018-03-13 12:49] LABS: CONTROL LINE UCG INT CTR LINE PRESENT; URINE PREG TEST NEGATIVE (NEGATIVE)
[2018-03-13 12:52] LABS: KETONE, URINE AUTO RFX NEGATIVE (NEGATIVE); LEUKOCYTE ESTERASE UR AUTO RFX NEGATIVE (NEGATIVE); MUCUS, URINE RFX SMALL (NEGATIVE); NITRITE, URINE AUTO RFX NEGATIVE (NEGATIVE); RBC, URINE AUTO RFX TNTC /HPF (0-3); SPECIFIC GRAVITY UR AUTO RFX 1.018 (1.002-1.035); SQUAM EPITHELIAL CELL UR AURFX 1 /HPF (0-6); WBC, URINE AUTO RFX 1 /HPF (0-3)
[2018-03-13 13:06] LABS: ALBUMIN 3.2 GM/DL (3.2-5.2); ALBUMIN/GLOBULIN RATIO 0.65 (1.00-1.93); ALKALINE PHOSPHATASE 168 U/L (45-117); ALT/SGPT 22 U/L (12-78); AMYLASE 41 U/L (25-115); ANION GAP 7 MEQ/L (8-16); AST/SGOT 13 U/L (7-37); BILIRUBIN,DIRECT < 0.1 MG/DL (0.0-0.2); BILIRUBIN,TOTAL 0.2 MG/DL (0.2-1.0); BLOOD UREA NITROGEN 10 MG/DL (7-18); CALCIUM LEVEL 8.4 MG/DL (8.5-10.1); CARBON DIOXIDE LEVEL 28 MEQ/L (21-32); CHLORIDE LEVEL 104 MEQ/L (98-107); CREATININE FOR GFR 0.79 MG/DL (0.55-1.30); GLOMERULAR FILTRATION RATE > 60.0 (>60); GLUCOSE, FASTING 90 MG/DL (70-100); LIPASE 193 U/L (73-393); POTASSIUM SERUM 3.5 MEQ/L (3.5-5.1); SODIUM LEVEL 139 MEQ/L (136-145); TOTAL PROTEIN 8.1 GM/DL (6.4-8.2)
[2018-03-13] MEDS ORDERED: ISOVUE-370 76% 100ML VIAL (Q9967) As Ordered (14:07)
[2018-03-13] MEDS ORDERED: PERCOCET 5MG/325MG TAB PO (14:30)
[2018-03-13] MEDS ORDERED: ONDANSETRON 4 MG ORAL DISINTEGRATING TAB (Q0162 PER 1MG) PO (14:30)
== END 2018-03-13 14:59 | disposition home or self-care (01) ==
LOC: M ED 10:55
DX: R10.9 Unspecified abdominal pain (principal); E28.2 Polycystic ovarian syndrome; I10 Essential (primary) hypertension; K21.9 Gastro-esophageal reflux disease without esophagitis; N80.9 Endometriosis, unspecified; F41.9 Anxiety disorder, unspecified; F43.10 Post-traumatic stress disorder, unspecified; F60.3 Borderline personality disorder; R51 Headache; G43.909 Migraine, unspecified, not intractable, without status migrainosus; M79.7 Fibromyalgia; J45.909 Unspecified asthma, uncomplicated; M54.9 Dorsalgia, unspecified; Z87.820 Personal history of traumatic brain injury; N80.0 Endometriosis of uterus; Z72.0 Tobacco use; Z79.899 Other long term (current) drug therapy; Z88.6 Allergy status to analgesic agent; Z88.2 Allergy status to sulfonamides; Z88.8 Allergy status to other drugs, medicaments and biological substances
CPT/HCPCS: J1200

== ENCOUNTER 2018-03-28 16:42 | Emergency (ER) | payer OTHER ==
[2018-03-28] MEDS: NS 1,000 ML IV (17:06)
[2018-03-28 17:15] LABS: BASO % 0.7 % (0.0-1.0); EOS # 0.3 10^3/uL (0.0-0.50); EOS % 4.4 % (0.0-3.0); HEMATOCRIT 34.5 % (36.0-47.0); HEMOGLOBIN 10.1 g/dl (12.0-15.5); IMMATURE GRANULOCYTE % 0.4 % (0-3.0); LYMPH # 1.8 10^3/uL (1.5-6.5); MEAN CORPUSCULAR HEMOGLOBIN 22.1 pg (27.0-33.0); MEAN CORPUSCULAR HGB CONC 29.3 g/dl (32.0-36.5); MEAN CORPUSCULAR VOLUME 75.7 fl (80.0-96.0); MONO # 0.2 10^3/uL (0.0-0.8); MONO % 4.2 % (0.0-5.0); NEUTROPHILS # 3.3 10^3/uL (1.8-7.7); NEUTROPHILS % 58.3 % (36.0-66.0); PLATELET COUNT, AUTOMATED 369 10^3/uL (150-450); RED BLOOD COUNT 4.56 10^6/uL (4.00-5.40); RED CELL DISTRIBUTION WIDTH 18.3 % (11.5-14.5); WHITE BLOOD COUNT 5.7 10^3/uL (4.0-10.0)
[2018-03-28 17:27] LABS: CONTROL LINE HCG INT CTR LINE PRESENT; HCG, SERUM QUALITATIVE NEGATIVE (NEGATIVE)
[2018-03-28 17:34] LABS: ALBUMIN 3.2 GM/DL (3.2-5.2); ALBUMIN/GLOBULIN RATIO 0.73 (1.00-1.93); ALKALINE PHOSPHATASE 165 U/L (45-117); ALT/SGPT 28 U/L (12-78); ANION GAP 10 MEQ/L (8-16); AST/SGOT 14 U/L (7-37); BILIRUBIN,DIRECT < 0.1 MG/DL (0.0-0.2); BILIRUBIN,TOTAL 0.2 MG/DL (0.2-1.0); BLOOD UREA NITROGEN 8 MG/DL (7-18); CALCIUM LEVEL 8.5 MG/DL (8.5-10.1); CARBON DIOXIDE LEVEL 27 MEQ/L (21-32); CHLORIDE LEVEL 105 MEQ/L (98-107); CREATININE FOR GFR 0.87 MG/DL (0.55-1.30); GLOMERULAR FILTRATION RATE > 60.0 (>60); GLUCOSE, FASTING 128 MG/DL (70-100); LIPASE 147 U/L (73-393); POTASSIUM SERUM 3.5 MEQ/L (3.5-5.1); SODIUM LEVEL 142 MEQ/L (136-145); TOTAL PROTEIN 7.6 GM/DL (6.4-8.2)
[2018-03-28] MEDS: ONDANSETRON 4MG/2ML VIAL (J2405) IV (17:48)
[2018-03-28 17:49] LABS: KETONE, URINE AUTO RFX NEGATIVE (NEGATIVE); LEUKOCYTE ESTERASE UR AUTO RFX NEGATIVE (NEGATIVE); MUCUS, URINE RFX SMALL (NEGATIVE); NITRITE, URINE AUTO RFX NEGATIVE (NEGATIVE); RBC, URINE AUTO RFX 166 /HPF (0-3); SPECIFIC GRAVITY UR AUTO RFX 1.019 (1.002-1.035); SQUAM EPITHELIAL CELL UR AURFX 2 /HPF (0-6); WBC, URINE AUTO RFX 0 /HPF (0-3)
[2018-03-28] MEDS: diphenhydrAMINE INJ 50MG/ML VIAL (J1200) IV (17:49)
[2018-03-28] MEDS: MORPHINE 4 MG/ML 1ML VIAL/SYRINGE (J2270) IV ×2 (17:53→19:00)
[2018-03-28] MEDS ORDERED: ISOVUE-370 76% 100ML VIAL (Q9967) As Ordered (18:07)
[2018-03-28] MEDS: PERCOCET 5MG/325MG TAB PO (20:23)
[2018-03-28 21:05] LABS: CHLAMYDIA DNA AMPLIFICATION NEGATIVE (NEGATIVE); GC DNA AMPLIFICATION NEGATIVE (NEGATIVE)
[2018-03-28] MEDS: OXYCODONE/APAP 5MG/325MG(BULK FOR ED) 1 TABLET PO (21:30)
== END 2018-03-28 21:51 | disposition home or self-care (01) ==
LOC: M ED 16:42
DX: R10.9 Unspecified abdominal pain (principal); F41.9 Anxiety disorder, unspecified; F32.9 Major depressive disorder, single episode, unspecified; F43.10 Post-traumatic stress disorder, unspecified; Z72.0 Tobacco use; Z79.899 Other long term (current) drug therapy; Z88.6 Allergy status to analgesic agent; Z88.2 Allergy status to sulfonamides; Z88.8 Allergy status to other drugs, medicaments and biological substances
CPT/HCPCS: J2270

== ENCOUNTER 2018-04-17 07:23 | Emergency (ER) | payer OTHER ==
[2018-04-17 08:26] LABS: BASO # 0.1 10^3/uL (0.0-0.2); BASO % 0.5 % (0.0-1.0); EOS # 0.2 10^3/uL (0.0-0.50); EOS % 2.3 % (0.0-3.0); HEMATOCRIT 32.6 % (36.0-47.0); HEMOGLOBIN 9.5 g/dl (12.0-15.5); IMMATURE GRANULOCYTE % 0.4 % (0-3.0); LYMPH # 1.9 10^3/uL (1.5-6.5); LYMPH % 19.3 % (24.0-44.0); MEAN CORPUSCULAR HGB CONC 29.1 g/dl (32.0-36.5); MEAN CORPUSCULAR VOLUME 75.5 fl (80.0-96.0); MONO # 0.4 10^3/uL (0.0-0.8); MONO % 4.1 % (0.0-5.0); NEUTROPHILS # 7.1 10^3/uL (1.8-7.7); NEUTROPHILS % 73.4 % (36.0-66.0); PLATELET COUNT, AUTOMATED 407 10^3/uL (150-450); RED BLOOD COUNT 4.32 10^6/uL (4.00-5.40); RED CELL DISTRIBUTION WIDTH 17.9 % (11.5-14.5); WHITE BLOOD COUNT 9.7 10^3/uL (4.0-10.0)
[2018-04-17] MEDS: NS 1,000 ML IV (08:26)
[2018-04-17] MEDS: diphenhydrAMINE INJ 50MG/ML VIAL (J1200) IV (08:26)
[2018-04-17] MEDS: ONDANSETRON 4MG/2ML VIAL (J2405) IV ×2 (08:27→09:16)
[2018-04-17] MEDS: HYDROMORPHONE HCL 0.5 MG/ 0.5 ML SYRINGE (J1170 PER 1) IV ×2 (08:28→09:17)
[2018-04-17 08:35] LABS: KETONE, URINE AUTO RFX NEGATIVE (NEGATIVE); LEUKOCYTE ESTERASE UR AUTO RFX NEGATIVE (NEGATIVE); NITRITE, URINE AUTO RFX NEGATIVE (NEGATIVE); RBC, URINE AUTO RFX TNTC /HPF (0-3); SPECIFIC GRAVITY UR AUTO RFX 1.016 (1.002-1.035); SQUAM EPITHELIAL CELL UR AURFX 4 /HPF (0-6); WBC, URINE AUTO RFX 9 /HPF (0-3)
[2018-04-17 08:57] LABS: ALBUMIN 3.2 GM/DL (3.2-5.2); ALBUMIN/GLOBULIN RATIO 0.86 (1.00-1.93); ALKALINE PHOSPHATASE 152 U/L (45-117); ALT/SGPT 18 U/L (12-78); ANION GAP 6 MEQ/L (8-16); AST/SGOT 9 U/L (7-37); BILIRUBIN,DIRECT < 0.1 MG/DL (0.0-0.2); BILIRUBIN,TOTAL 0.2 MG/DL (0.2-1.0); BLOOD UREA NITROGEN 12 MG/DL (7-18); CARBON DIOXIDE LEVEL 28 MEQ/L (21-32); CHLORIDE LEVEL 106 MEQ/L (98-107); CREATININE FOR GFR 0.68 MG/DL (0.55-1.30); GLOMERULAR FILTRATION RATE > 60.0 (>60); GLUCOSE, FASTING 94 MG/DL (70-100); LIPASE 136 U/L (73-393); POTASSIUM SERUM 4.2 MEQ/L (3.5-5.1); SODIUM LEVEL 140 MEQ/L (136-145); TOTAL PROTEIN 6.9 GM/DL (6.4-8.2)
== END 2018-04-17 12:18 | disposition home or self-care (01) ==
LOC: M ED 07:23
DX: G89.29 Other chronic pain (principal); R10.31 Right lower quadrant pain; I10 Essential (primary) hypertension; J45.909 Unspecified asthma, uncomplicated; K21.9 Gastro-esophageal reflux disease without esophagitis; G62.9 Polyneuropathy, unspecified; M79.7 Fibromyalgia; D64.9 Anemia, unspecified; F41.9 Anxiety disorder, unspecified; F33.9 Major depressive disorder, recurrent, unspecified; F90.9 Attention-deficit hyperactivity disorder, unspecified type; N80.9 Endometriosis, unspecified; E66.9 Obesity, unspecified; Z79.899 Other long term (current) drug therapy; Z88.2 Allergy status to sulfonamides; Z88.8 Allergy status to other drugs, medicaments and biological substances; F17.210 Nicotine dependence, cigarettes, uncomplicated
CPT/HCPCS: J1200

== ENCOUNTER 2018-05-02 15:35 | Emergency (ER) | payer OTHER ==
[2018-05-02] MEDS: NS 1,000 ML IV (16:16)
[2018-05-02] MEDS: ONDANSETRON 4MG/2ML VIAL (J2405) IV (16:16)
[2018-05-02] MEDS: MORPHINE 4 MG/ML 1ML VIAL/SYRINGE (J2270) IV ×2 (16:17→16:57)
[2018-05-02 16:33] LABS: BASO % 0.3 % (0.0-1.0); EOS # 0.3 10^3/uL (0.0-0.50); EOS % 2.3 % (0.0-3.0); HEMATOCRIT 33.3 % (36.0-47.0); HEMOGLOBIN 9.7 g/dl (12.0-15.5); IMMATURE GRANULOCYTE % 0.4 % (0-3.0); LYMPH # 2.5 10^3/uL (1.5-6.5); MEAN CORPUSCULAR HEMOGLOBIN 22.1 pg (27.0-33.0); MEAN CORPUSCULAR HGB CONC 29.1 g/dl (32.0-36.5); MONO # 0.4 10^3/uL (0.0-0.8); MONO % 3.5 % (0.0-5.0); NEUTROPHILS # 7.8 10^3/uL (1.8-7.7); NEUTROPHILS % 70.5 % (36.0-66.0); PLATELET COUNT, AUTOMATED 405 10^3/uL (150-450); RED BLOOD COUNT 4.38 10^6/uL (4.00-5.40); RED CELL DISTRIBUTION WIDTH 17.5 % (11.5-14.5)
[2018-05-02] MEDS: diphenhydrAMINE INJ 50MG/ML VIAL (J1200) IV (16:35)
[2018-05-02 17:00] LABS: ALBUMIN 3.2 GM/DL (3.2-5.2); ALBUMIN/GLOBULIN RATIO 0.89 (1.00-1.93); ALKALINE PHOSPHATASE 163 U/L (45-117); ALT/SGPT 31 U/L (12-78); ANION GAP 3 MEQ/L (8-16); AST/SGOT 11 U/L (7-37); BILIRUBIN,DIRECT < 0.1 MG/DL (0.0-0.2); BILIRUBIN,TOTAL 0.2 MG/DL (0.2-1.0); BLOOD UREA NITROGEN 8 MG/DL (7-18); CALCIUM LEVEL 8.8 MG/DL (8.5-10.1); CARBON DIOXIDE LEVEL 31 MEQ/L (21-32); CHLORIDE LEVEL 105 MEQ/L (98-107); CREATININE FOR GFR 0.77 MG/DL (0.55-1.30); GLOMERULAR FILTRATION RATE > 60.0 (>60); GLUCOSE, FASTING 89 MG/DL (70-100); LIPASE 113 U/L (73-393); POTASSIUM SERUM 4.6 MEQ/L (3.5-5.1); SODIUM LEVEL 139 MEQ/L (136-145); TOTAL PROTEIN 6.8 GM/DL (6.4-8.2)
[2018-05-02] MEDS ORDERED: ISOVUE-370 76% 100ML VIAL (Q9967) As Ordered (17:09)
[2018-05-02 17:37] LABS: APPEARANCE, URINE HAZY (CLEAR); BACTERIA, URINE AUTO NEGATIVE (NEGATIVE); BILIRUBIN, URINE AUTO NEGATIVE (NEGATIVE); BLOOD, URINE BLOOD 3+ (NEGATIVE); COLOR, URINE YELLOW (YELLOW); GLUCOSE, URINE (UA) AUTO NEGATIVE (NEGATIVE); KETONE, URINE AUTO NEGATIVE (NEGATIVE); LEUKOCYTE ESTERASE, URINE AUTO NEGATIVE (NEGATIVE); NITRITE, URINE AUTO NEGATIVE (NEGATIVE); PROTEIN, URINE AUTO NEGATIVE (NEGATIVE); RBC, URINE AUTO TNTC /HPF (0-3); SPECIFIC GRAVITY URINE AUTO 1.006 (1.002-1.035); SQUAMOUS EPITHELIAL CELL UR AU 2 /HPF (0-6); UROBILINOGEN, URINE AUTO 0.2 mg/dL (0.0-2.0); WBC, URINE AUTO 12 /HPF (0-3)
[2018-05-02] MEDS ORDERED: diphenhydrAMINE INJ 50MG/ML VIAL (J1200) IV (18:00)
[2018-05-02] MEDS: fentaNYL 100 MCG/2 ML INJECTION (J3010) IV (18:16)
[2018-05-02] MEDS: DICYCLOMINE INJ 20MG/2ML (J0500) IM (18:16)
[2018-05-02] MEDS: ACETAMINOPHEN 325 MG TAB PO (18:45)
== END 2018-05-02 18:51 | disposition home or self-care (01) ==
LOC: M ED 15:35
DX: R10.32 Left lower quadrant pain (principal); R11.2 Nausea with vomiting, unspecified; I10 Essential (primary) hypertension; J45.909 Unspecified asthma, uncomplicated; M79.7 Fibromyalgia; F90.9 Attention-deficit hyperactivity disorder, unspecified type; Z87.19 Personal history of other diseases of the digestive system; Z79.899 Other long term (current) drug therapy; Z88.2 Allergy status to sulfonamides; Z88.8 Allergy status to other drugs, medicaments and biological substances; F17.210 Nicotine dependence, cigarettes, uncomplicated
CPT/HCPCS: J2270

== ENCOUNTER 2018-05-09 15:57 | Emergency (ER) | payer OTHER ==
[2018-05-09 16:40] LABS: BASO % 0.4 % (0.0-1.0); EOS # 0.4 10^3/uL (0.0-0.50); EOS % 3.3 % (0.0-3.0); HEMATOCRIT 33.8 % (36.0-47.0); IMMATURE GRANULOCYTE % 0.3 % (0-3.0); LYMPH # 2.2 10^3/uL (1.5-6.5); LYMPH % 19.7 % (24.0-44.0); MEAN CORPUSCULAR HEMOGLOBIN 22.3 pg (27.0-33.0); MEAN CORPUSCULAR HGB CONC 29.6 g/dl (32.0-36.5); MEAN CORPUSCULAR VOLUME 75.4 fl (80.0-96.0); MONO # 0.5 10^3/uL (0.0-0.8); MONO % 4.2 % (0.0-5.0); NEUTROPHILS # 8.1 10^3/uL (1.8-7.7); NEUTROPHILS % 72.1 % (36.0-66.0); PLATELET COUNT, AUTOMATED 451 10^3/uL (150-450); RED BLOOD COUNT 4.48 10^6/uL (4.00-5.40); RED CELL DISTRIBUTION WIDTH 17.4 % (11.5-14.5); WHITE BLOOD COUNT 11.3 10^3/uL (4.0-10.0)
[2018-05-09 16:46] LABS: AMORPHOUS SEDIMENT RFX SMALL (NEGATIVE); CONTROL LINE HCG INT CTR LINE PRESENT; HCG, SERUM QUALITATIVE NEGATIVE (NEGATIVE); KETONE, URINE AUTO RFX NEGATIVE (NEGATIVE); LEUKOCYTE ESTERASE UR AUTO RFX NEGATIVE (NEGATIVE); NITRITE, URINE AUTO RFX NEGATIVE (NEGATIVE); RBC, URINE AUTO RFX TNTC /HPF (0-3); SPECIFIC GRAVITY UR AUTO RFX 1.015 (1.002-1.035); SQUAM EPITHELIAL CELL UR AURFX 11 /HPF (0-6); WBC, URINE AUTO RFX 40 /HPF (0-3)
[2018-05-09 16:49] LABS: ANION GAP 7 MEQ/L (8-16); BLOOD UREA NITROGEN 13 MG/DL (7-18); CALCIUM LEVEL 8.1 MG/DL (8.5-10.1); CARBON DIOXIDE LEVEL 27 MEQ/L (21-32); CHLORIDE LEVEL 105 MEQ/L (98-107); CREATININE FOR GFR 1.16 MG/DL (0.55-1.30); GLOMERULAR FILTRATION RATE 59.7 (>60); GLUCOSE, FASTING 78 MG/DL (70-100); POTASSIUM SERUM 4.3 MEQ/L (3.5-5.1); SODIUM LEVEL 139 MEQ/L (136-145)
[2018-05-09] MEDS ORDERED: ISOVUE-370 76% 100ML VIAL (Q9967) As Ordered (17:24)
[2018-05-09] MEDS: diphenhydrAMINE INJ 50MG/ML VIAL (J1200) IV (17:32)
[2018-05-09 17:44] LABS: ALBUMIN 3.1 GM/DL (3.2-5.2); ALBUMIN/GLOBULIN RATIO 0.74 (1.00-1.93); ALKALINE PHOSPHATASE 164 U/L (45-117); ALT/SGPT 23 U/L (12-78); AST/SGOT 16 U/L (7-37); BILIRUBIN,DIRECT < 0.1 MG/DL (0.0-0.2); BILIRUBIN,TOTAL 0.1 MG/DL (0.2-1.0); TOTAL PROTEIN 7.3 GM/DL (6.4-8.2)
[2018-05-09] MEDS: cefTRIAXone SOD 1 GM in D5W MINI-BAG PLUS 50 ML IV (19:00)
[2018-05-09] MEDS: PHENAZOPYRIDINE 100 MG TAB PO (19:00)
== END 2018-05-09 19:22 | disposition home or self-care (01) ==
LOC: M ED 15:57
DX: N39.0 Urinary tract infection, site not specified (principal); E11.9 Type 2 diabetes mellitus without complications
CPT/HCPCS: J1200

== ENCOUNTER 2018-05-22 15:31 | Emergency (ER) | payer OTHER | END 2018-05-22 15:51 | disposition left against medical advice (07) | LOC: M ED 15:31 | DX: Z76.5 Malingerer [conscious simulation] (principal); Z72.89 Other problems related to lifestyle; W10.9XXA Fall (on) (from) unspecified stairs and steps, initial encounter; Y92.099 Unspecified place in other non-institutional residence as the place of occurrence of the external cause; Y93.89 Activity, other specified; Y99.9 Unspecified external cause status; G89.29 Other chronic pain; Z72.0 Tobacco use; Z79.899 Other long term (current) drug therapy; Z88.2 Allergy status to sulfonamides; Z88.6 Allergy status to analgesic agent; Z88.8 Allergy status to other drugs, medicaments and biological substances; Z53.21 Procedure and treatment not carried out due to patient leaving prior to being seen by health care provider | CPT/HCPCS: 99281 ==

== ENCOUNTER 2018-06-05 12:28 | Emergency (ER) | payer OTHER ==
[~2018-06-05] VITALS: Ht 170.2 cm; Wt 143.2 kg
[~2018-06-05 12:28] MED LIST changes: +ACET300T52 PO; +ACET500T15 PO; -ACET50TAOT PO; +AMOX500C PO; +BENA25CA4 PO; +BENT10CA PO; +CARI1TAB7 PO; +CLEO300C2 PO; -CLON0.5T PO; +CLON0.5T8 PO; +CLON1TAB8 PO; +DIFL150T PO; +DOXY100C37 PO; +ENDO10TA8 PO; +HYDR-3713 PO; +IBUP-1022 PO; +IRON65TA; +KETO10TAB PO; +MAGICMW SSP; +METH-914 PO; -METHY10TA PO; +OXYC15TA76 PO; +OXYC1TAB23 PO; +PARO20TA3 PO; +PARO40TA2 PO; +PROBCAP4 PO; +TIGA300C2 PO; +VENTAER; +VYVA20CA PO; +ZANT300T PO; -ZOFR20TA PO; +ZOFR4TAB14 PO; +ZOFR4TAB16 PO; -ZOFR4TAB3 PO
[2018-06-05] MEDS ORDERED: CLON0.5T8 PO (12:35)
[2018-06-05] MEDS ORDERED: FAMOTIDINE IV BAG 20 MG in APPROPRIATE DILUENT 1 EA IV ONE (13:00)
[2018-06-05] MEDS ORDERED: NS 1,000 ML IV ONE (13:00)
[2018-06-05] MEDS ORDERED: ONDANSETRON 4MG/2ML VIAL (J2405) IV ONE (13:15)
[2018-06-05 13:19] LABS: BASO % 0.4 % (0.0-1.0); EOS # 0.3 10^3/uL (0.0-0.50); EOS % 2.5 % (0.0-3.0); HEMATOCRIT 36.8 % (36.0-47.0); HEMOGLOBIN 10.6 g/dl (12.0-15.5); LYMPH # 1.9 10^3/uL (1.5-6.5); MEAN CORPUSCULAR HEMOGLOBIN 21.5 pg (27.0-33.0); MEAN CORPUSCULAR HGB CONC 28.8 g/dl (32.0-36.5); MEAN CORPUSCULAR VOLUME 74.8 fl (80.0-96.0); MONO # 0.3 10^3/uL (0.0-0.8); MONO % 2.6 % (0.0-5.0); NEUTROPHILS # 8.1 10^3/uL (1.8-7.7); NEUTROPHILS % 76.1 % (36.0-66.0); PLATELET COUNT, AUTOMATED 433 10^3/uL (150-450); RED BLOOD COUNT 4.92 10^6/uL (4.00-5.40); WHITE BLOOD COUNT 10.6 10^3/uL (4.0-10.0)
[2018-06-05] MEDS ORDERED: MORPHINE 2 MG/ML 1ML SYRINGE (J2270) IV ONE (13:45)
[2018-06-05 13:48] LABS: BLOOD UREA NITROGEN 8 MG/DL (7-18); CARBON DIOXIDE LEVEL 25 MEQ/L (21-32); CHLORIDE LEVEL 107 MEQ/L (98-107); CREATININE FOR GFR 0.94 MG/DL (0.55-1.30); GLOMERULAR FILTRATION RATE > 60.0 (>60); GLUCOSE, FASTING 98 MG/DL (70-100); POTASSIUM SERUM 3.9 MEQ/L (3.5-5.1); SODIUM LEVEL 143 MEQ/L (136-145)
--- NOTE | 2018-06-05 13:49 | REP ---
Clinical: Bilateral flank pain. Technique: Axial noncontrast images from the lung bases to the pubic symphysis with coronal and sagittal re-formations. Comparison: 05/09/2018. Findings: Lung bases are clear. Visualized heart and pericardium normal. Liver, spleen, pancreas, bilateral adrenal glands and kidneys are normal. Specifically, no perinephric stranding, hydroureteronephrosis, intrarenal or obstructing ureteral calculi are identified. The patient is status post cholecystectomy. The enteric system is without obstruction or acute inflammatory process. Pelvis demonstrates normal bladder and age-appropriate uterus/adnexa. No ascites. No free air. No obvious adenopathy. Abdominal aorta without aneurysm. Surrounding musculoskeletal structures are intact. Impression: No acute abdominopelvic pathology appreciated. Electronically Signed by Oleg Marr MD 06/05/2018 01:40 P
[2018-06-05] MEDS ORDERED: ZOFR4TAB14 PO (13:56)
[2018-06-05] MEDS ORDERED: MACR100C43 PO (13:56)
[2018-06-05] MEDS ORDERED: BENA25CA4 PO (13:57)
[2018-06-05] MEDS ORDERED: DIFL150T PO (14:00)
[2018-06-05 14:06] VITALS: BP 112/65
== END 2018-06-05 14:08 | disposition home or self-care (01) ==
LOC: M ED 12:28
DX: N30.01 Acute cystitis with hematuria (principal); L29.9 Pruritus, unspecified; I10 Essential (primary) hypertension; G43.909 Migraine, unspecified, not intractable, without status migrainosus; K21.9 Gastro-esophageal reflux disease without esophagitis; G89.29 Other chronic pain; M54.9 Dorsalgia, unspecified; F41.9 Anxiety disorder, unspecified; F32.9 Major depressive disorder, single episode, unspecified; D64.9 Anemia, unspecified; F43.10 Post-traumatic stress disorder, unspecified; F13.10 Sedative, hypnotic or anxiolytic abuse, uncomplicated; Z87.820 Personal history of traumatic brain injury; J45.909 Unspecified asthma, uncomplicated; N80.9 Endometriosis, unspecified; Z79.899 Other long term (current) drug therapy; Z88.2 Allergy status to sulfonamides; Z88.8 Allergy status to other drugs, medicaments and biological substances; Z88.6 Allergy status to analgesic agent
CPT/HCPCS: 36415; 74176; 80048; 81001; 81025; 85025; 87086; 96365; 96375; 99284; J2270; J2405

== ENCOUNTER 2018-06-13 14:40 | Emergency (ER) | payer OTHER ==
[~2018-06-13] VITALS: Ht 170.2 cm; Wt 145.4 kg
[~2018-06-13 14:40] MED LIST changes: -GABA600T PO; +GABA600T4 PO; +MACR100C43 PO; -ZANT300T PO; +ZANT300T9 PO
[2018-06-13] MEDS ORDERED: MORPHINE 4 MG/ML 1ML VIAL/SYRINGE (J2270) IV ONE (16:45)
[2018-06-13] MEDS ORDERED: ONDANSETRON 4MG/2ML VIAL (J2405) IV ONE (16:45)
[2018-06-13] MEDS ORDERED: NS 1,000 ML IV ONE (16:45)
[2018-06-13] MEDS ORDERED: diphenhydrAMINE 50 MG CAP PO ONE (17:00)
[2018-06-13] MEDS ORDERED: diphenhydrAMINE INJ 50MG/ML VIAL (J1200) IV STA (17:15)
[2018-06-13 17:35] LABS: BASO % 0.4 % (0.0-1.0); EOS # 0.2 10^3/uL (0.0-0.50); EOS % 2.5 % (0.0-3.0); HEMATOCRIT 31.9 % (36.0-47.0); HEMOGLOBIN 9.4 g/dl (12.0-15.5); LYMPH # 2.4 10^3/uL (1.5-6.5); LYMPH % 24.5 % (24.0-44.0); MEAN CORPUSCULAR HEMOGLOBIN 21.5 pg (27.0-33.0); MEAN CORPUSCULAR HGB CONC 29.5 g/dl (32.0-36.5); MEAN CORPUSCULAR VOLUME 72.8 fl (80.0-96.0); MONO # 0.3 10^3/uL (0.0-0.8); MONO % 3.5 % (0.0-5.0); NEUTROPHILS # 6.7 10^3/uL (1.8-7.7); NEUTROPHILS % 68.7 % (36.0-66.0); PLATELET COUNT, AUTOMATED 386 10^3/uL (150-450); RED BLOOD COUNT 4.38 10^6/uL (4.00-5.40); WHITE BLOOD COUNT 9.8 10^3/uL (4.0-10.0)
[2018-06-13 17:59] LABS: ALBUMIN 2.9 GM/DL (3.2-5.2); ALT/SGPT 26 U/L (12-78); BILIRUBIN,TOTAL 0.2 MG/DL (0.2-1.0); BLOOD UREA NITROGEN 6 MG/DL (7-18); CALCIUM LEVEL 8.4 MG/DL (8.5-10.1); CARBON DIOXIDE LEVEL 27 MEQ/L (21-32); CHLORIDE LEVEL 105 MEQ/L (98-107); CREATININE FOR GFR 0.81 MG/DL (0.55-1.30); GLOMERULAR FILTRATION RATE > 60.0 (>60); GLUCOSE, FASTING 80 MG/DL (70-100); SODIUM LEVEL 138 MEQ/L (136-145); TOTAL PROTEIN 7.2 GM/DL (6.4-8.2)
--- NOTE | 2018-06-13 18:20 | REP ---
Clinical: Flank pain. Comparison: 06/05/2018. Technique: Axial noncontrast images from the lung bases to the pubic symphysis with coronal and sagittal re-formations. Findings: Lung bases are clear. Liver, spleen, pancreas, bilateral adrenal glands and kidneys are normal. No perinephric stranding, hydroureteronephrosis, intrarenal or obstructing ureteral calculi are identified. The patient is status post cholecystectomy. The enteric system is without obstruction or acute inflammatory process. Normal terminal ileum and appendix are identified in the right lower quadrant. Few pericecal lymph nodes are identified and should be correlated with physical examination to exclude mesenteric adenitis. Pelvis demonstrates normal bladder and age-appropriate uterus/adnexa. No ascites. No free air. No significant retroperitoneal adenopathy. Abdominal aorta without aneurysm. Musculoskeletal structures intact. Impression: 1. Few pericecal lymph nodes raise the possibility of mesenteric adenitis and should be correlated clinically. 2. No further acute abdominopelvic pathology appreciated. Electronically Signed by Oleg Marr MD 06/13/2018 06:11 P
[2018-06-13] MEDS ORDERED: HALOPERIDOL 5 MG/ML VIAL (J1630) IV STA (18:26)
[2018-06-13] MEDS ORDERED: HALOPERIDOL 5 MG/ML VIAL (J1630) IM STA (19:13)
[2018-06-13] MEDS ORDERED: PERC5TAB12 PO (19:54)
[2018-06-13] MEDS ORDERED: PERCOCET 5MG/325MG TAB PO PRN (20:00)
[2018-06-13 20:02] VITALS: BP 122/65
[2018-06-14] MEDS ORDERED: ONDANSETRON 4 MG ORAL DISINTEGRATING TAB (Q0162 PER 1MG) PO ONE
== END 2018-06-13 20:14 | disposition home or self-care (01) ==
LOC: M ED 14:40
DX: D50.9 Iron deficiency anemia, unspecified (principal); L73.9 Follicular disorder, unspecified; M54.5 Low back pain; R11.0 Nausea; R74.8 Abnormal levels of other serum enzymes; E83.51 Hypocalcemia; E28.2 Polycystic ovarian syndrome; Z87.442 Personal history of urinary calculi; I10 Essential (primary) hypertension; J45.909 Unspecified asthma, uncomplicated; F90.9 Attention-deficit hyperactivity disorder, unspecified type; M79.7 Fibromyalgia; G62.9 Polyneuropathy, unspecified; Z91.5 Personal history of self-harm; F32.9 Major depressive disorder, single episode, unspecified; F41.9 Anxiety disorder, unspecified; Z88.2 Allergy status to sulfonamides; Z88.8 Allergy status to other drugs, medicaments and biological substances; Z79.899 Other long term (current) drug therapy; F17.200 Nicotine dependence, unspecified, uncomplicated
CPT/HCPCS: 74176; 80053; 81001; 81025; 85025; 96361; 96372; 96374; 96375; 99284; J1200; J1630; J2270; J2405; Q0162

== ENCOUNTER 2018-06-20 14:44 | Emergency (ER) | payer OTHER ==
[~2018-06-20] VITALS: Ht 170.2 cm; Wt 145.0 kg
[2018-06-20 15:51] VITALS: BP 121/56
[2018-06-20] MEDS ORDERED: ONDANSETRON 4MG/2ML VIAL (J2405) IV ONE (16:15)
[2018-06-20] MEDS ORDERED: diphenhydrAMINE INJ 50MG/ML VIAL (J1200) IV ONE (16:15)
[2018-06-20 16:24] LABS: HEMATOCRIT 30.5 % (36.0-47.0); HEMOGLOBIN 9.1 g/dl (12.0-15.5); MEAN CORPUSCULAR HEMOGLOBIN 21.6 pg (27.0-33.0); MEAN CORPUSCULAR HGB CONC 29.8 g/dl (32.0-36.5); MEAN CORPUSCULAR VOLUME 72.3 fl (80.0-96.0); PLATELET COUNT, AUTOMATED 376 10^3/uL (150-450); RED BLOOD COUNT 4.22 10^6/uL (4.00-5.40); WHITE BLOOD COUNT 10.5 10^3/uL (4.0-10.0)
[2018-06-20 16:51] LABS: ALT/SGPT 26 U/L (12-78); BLOOD UREA NITROGEN 10 MG/DL (7-18); CALCIUM LEVEL 8.1 MG/DL (8.5-10.1); CARBON DIOXIDE LEVEL 26 MEQ/L (21-32); CHLORIDE LEVEL 106 MEQ/L (98-107); GLOMERULAR FILTRATION RATE > 60.0 (>60); GLUCOSE, FASTING 90 MG/DL (70-100); POTASSIUM SERUM 4.6 MEQ/L (3.5-5.1); SODIUM LEVEL 138 MEQ/L (136-145)
[2018-06-20 16:52] LABS: ALBUMIN 2.9 GM/DL (3.2-5.2); AMYLASE 38 U/L (25-115); BILIRUBIN,DIRECT < 0.1 MG/DL (0.0-0.2); BILIRUBIN,TOTAL 0.2 MG/DL (0.2-1.0); LIPASE 195 U/L (73-393); TOTAL PROTEIN 6.6 GM/DL (6.4-8.2)
--- NOTE | 2018-06-20 17:00 | REP ---
CT Head without contrast HISTORY: Trauma COMPARISON: 05/29/2016 There is no intraparenchymal hemorrhage, acute infarct, mass or midline shift. The ventricular system is normal in appearance. There is no extra cerebral collection. There is no fracture. The visualized sinuses are clear. IMPRESSION: There is no intracranial lesion. Electronically Signed by Korey Slaughter MD 06/20/2018 04:51 P
[2018-06-20 17:07] LABS: APPEARANCE, URINE CLEAR (CLEAR); BACTERIA, URINE AUTO NEGATIVE (NEGATIVE); BILIRUBIN, URINE AUTO NEGATIVE (NEGATIVE); BLOOD, URINE BLOOD NEGATIVE (NEGATIVE); COLOR, URINE YELLOW (YELLOW); GLUCOSE, URINE (UA) AUTO NEGATIVE (NEGATIVE); KETONE, URINE AUTO NEGATIVE (NEGATIVE); LEUKOCYTE ESTERASE, URINE AUTO TRACE (NEGATIVE); NITRITE, URINE AUTO NEGATIVE (NEGATIVE); PROTEIN, URINE AUTO NEGATIVE (NEGATIVE); RBC, URINE AUTO 1 /HPF (0-3); SPECIFIC GRAVITY URINE AUTO 1.016 (1.002-1.035); SQUAMOUS EPITHELIAL CELL UR AU 1 /HPF (0-6); UROBILINOGEN, URINE AUTO 0.2 mg/dL (0.0-2.0); WBC, URINE AUTO 3 /HPF (0-3)
[2018-06-20] MEDS ORDERED: NS 1,000 ML IV ONE (17:15)
[2018-06-20] MEDS ORDERED: ISOVUE-370 76% 100ML VIAL (Q9967) As Ordered ONE (17:16)
[2018-06-20] MEDS ORDERED: ACETAMINOPHEN 325 MG TAB PO ONE (17:45)
--- NOTE | 2018-06-20 18:29 | REPVR ---
EXAM: CT Abdomen and Pelvis With Contrast EXAM DATE/TIME: 06/20/2018 5:21 PM CLINICAL HISTORY: 27 years old, female; Pain; Abdominal pain; Localized; Lower; Additional info: Trauma, lower abd pain TECHNIQUE: Axial computed tomography images of the abdomen and pelvis with intravenous contrast. All CT scans at this facility use at least one of these dose optimization techniques: automated exposure control; mA and/or kV adjustment per patient size (includes targeted exams where dose is matched to clinical indication); or iterative reconstruction. Coronal and sagittal reformatted images were created and reviewed. CONTRAST: 100 ml of ISOVUE 370 administered intravenously. COMPARISON: CT ABD/PEL W/IV CONTRAST ONLY 05/09/2018 5:48 PM FINDINGS: Lower thorax: No acute findings. ABDOMEN: Liver: Normal. No mass. Gallbladder and bile ducts: Surgically absent. No ductal dilation. Pancreas: Normal. No ductal dilation. Spleen: Normal. No splenomegaly. Adrenals: Normal. No mass. Kidneys and ureters: Normal. No hydronephrosis. Stomach and bowel: Normal. No obstruction. No mucosal thickening. Appendix: No evidence of appendicitis. PELVIS: Bladder: Unremarkable as visualized. Reproductive: Unremarkable as visualized. ABDOMEN and PELVIS: Intraperitoneal space: Normal. No free air. No significant fluid collection. Bones/joints: No acute fracture. No dislocation. Soft tissues: Unremarkable. Vasculature: Normal. No abdominal aortic aneurysm. Lymph nodes: Normal. No enlarged lymph nodes. IMPRESSION: No acute findings. Cholecystectomy. Electronically signed by: Bela Veronica On 06/20/2018 18:28:40 PM
--- NOTE | 2018-06-20 19:12 | REP ---
Left foot four views History: Trauma There is no acute fracture or dislocation. The joint spaces are normal in appearance. Impression: There is no acute fracture or dislocation. Electronically Signed by Korey Slaughter MD 06/20/2018 07:03 P
--- NOTE | 2018-06-20 19:14 | REP ---
Left hand four views history: Trauma There is no acute fracture or dislocation. The joint spaces are normal in appearance Impression: There is no acute fracture or dislocation. Electronically Signed by Korey Slaughter MD 06/20/2018 07:05 P
== END 2018-06-20 18:16 | disposition left against medical advice (07) ==
LOC: M ED 14:44 → EDBD 14:44 → M ED 18:16
DX: S09.90XA Unspecified injury of head, initial encounter (principal); S40.022A Contusion of left upper arm, initial encounter; S90.32XA Contusion of left foot, initial encounter; S60.222A Contusion of left hand, initial encounter; S39.91XA Unspecified injury of abdomen, initial encounter; Y04.8XXA Assault by other bodily force, initial encounter; Y92.018 Other place in single-family (private) house as the place of occurrence of the external cause
CPT/HCPCS: 36415; 70450; 73130; 73630; 74177; 80048; 80076; 81001; 81025; 82150; 83690; 85027; 96374; 96375; 99284; J1200; J2405; Q9967

== ENCOUNTER 2018-08-24 05:52 | Emergency (ER) | payer OTHER ==
[~2018-08-24] VITALS: Ht 170.2 cm; Wt 145.4 kg
[2018-08-24 05:53] VITALS: BP 144/85
[2018-08-24] MEDS ORDERED: KETOROLAC 30 MG/ML VIAL (J1885) IV ONE (06:30)
[2018-08-24] MEDS ORDERED: ONDANSETRON 4MG/2ML VIAL (J2405) IV ONE (06:30)
[2018-08-24] MEDS ORDERED: diphenhydrAMINE INJ 50MG/ML VIAL (J1200) IV ONE (06:45)
[2018-08-24 06:53] LABS: APPEARANCE, URINE HAZY (CLEAR); BACTERIA, URINE AUTO 1+ (NEGATIVE); BASO % 0.4 % (0.0-1.0); BILIRUBIN, URINE AUTO NEGATIVE (NEGATIVE); BLOOD, URINE BLOOD NEGATIVE (NEGATIVE); COLOR, URINE YELLOW (YELLOW); EOS # 0.3 10^3/uL (0.0-0.50); EOS % 3.4 % (0.0-3.0); GLUCOSE, URINE (UA) AUTO NEGATIVE (NEGATIVE); HEMATOCRIT 32.7 % (36.0-47.0); HEMOGLOBIN 9.5 g/dl (12.0-15.5); KETONE, URINE AUTO NEGATIVE (NEGATIVE); LEUKOCYTE ESTERASE, URINE AUTO NEGATIVE (NEGATIVE); LYMPH # 1.9 10^3/uL (1.5-6.5); LYMPH % 20.4 % (24.0-44.0); MEAN CORPUSCULAR HEMOGLOBIN 21.6 pg (27.0-33.0); MEAN CORPUSCULAR HGB CONC 29.1 g/dl (32.0-36.5); MEAN CORPUSCULAR VOLUME 74.3 fl (80.0-96.0); MONO # 0.3 10^3/uL (0.0-0.8); MONO % 3.5 % (0.0-5.0); MUCUS, URINE SMALL (NEGATIVE); NEUTROPHILS # 6.8 10^3/uL (1.8-7.7); NEUTROPHILS % 71.8 % (36.0-66.0); NITRITE, URINE AUTO NEGATIVE (NEGATIVE); PLATELET COUNT, AUTOMATED 347 10^3/uL (150-450); PROTEIN, URINE AUTO NEGATIVE (NEGATIVE); RBC, URINE AUTO 2 /HPF (0-3); SPECIFIC GRAVITY URINE AUTO 1.023 (1.002-1.035); SQUAMOUS EPITHELIAL CELL UR AU 8 /HPF (0-6); WBC, URINE AUTO 6 /HPF (0-3); WHITE BLOOD COUNT 9.5 10^3/uL (4.0-10.0)
[2018-08-24 07:15] LABS: ALBUMIN 2.9 GM/DL (3.2-5.2); ALT/SGPT 22 U/L (12-78); BILIRUBIN,DIRECT < 0.1 MG/DL (0.0-0.2); BILIRUBIN,TOTAL 0.2 MG/DL (0.2-1.0); BLOOD UREA NITROGEN 10 MG/DL (7-18); CALCIUM LEVEL 8.1 MG/DL (8.5-10.1); CARBON DIOXIDE LEVEL 28 MEQ/L (21-32); CHLORIDE LEVEL 108 MEQ/L (98-107); CREATININE FOR GFR 0.78 MG/DL (0.55-1.30); GLOMERULAR FILTRATION RATE > 60.0 (>60); GLUCOSE, FASTING 116 MG/DL (70-100); LIPASE 104 U/L (73-393); POTASSIUM SERUM 4.3 MEQ/L (3.5-5.1); SODIUM LEVEL 141 MEQ/L (136-145); TOTAL PROTEIN 6.8 GM/DL (6.4-8.2)
[2018-08-24] MEDS ORDERED: ISOVUE-370 76% 100ML VIAL (Q9967) As Ordered ONE (07:50)
--- NOTE | 2018-08-24 08:57 | REP ---
CT ABDOMEN PELVIS WITH IV CONTRAST ONLY: 08/24/2018. Comparison: 06/20/2018. Technique: Bolus of 100 ml Isovue 370 scanning through the abdomen pelvis with coronal and sagittal reconstructions provided. Findings: CT abdomen: The lung bases are clear. Heart is not enlarged and no pericardial thickening or effusion nor hiatal hernia. I see no gross hepatomegaly or splenomegaly. There is no hepatic mass, cyst, intrahepatic biliary dilatation nor ascites. Clips from cholecystectomy are noted in the gallbladder fossa. Pancreas is without mass, ductal dilatation, calcification, peripancreatic adenopathy or fluid collection. Adrenal glands are normal. The kidneys show symmetric enhancement and are without mass, cyst, stone or hydronephrosis. No perinephric fluid. Aorta normal. No periaortic, retroperitoneal or mesenteric pathologic sized adenopathy. Small bowel loops are fluid filled but not abnormally dilated. Abdominal portion of the colon shows stool and gas scattered throughout without acute finding. Lung window review of all CT slices in the abdomen and pelvis shows no perforation or free air. Bone windows show lumbar and lower thoracic region and posterior elements grossly intact. The visualized ribs were also intact. CT pelvis: Some minor sclerosis at the inferior aspect of the right SI joint noted. The left unremarkable. Both the iliac bones, acetabuli and hip. Ureters show normal course to the bladder and are without dilatation or stone on either side. Bladder only minimally filled but without mass, wall thickening or stone. Uterus anteverted, not enlarged. No adnexal mass or pelvic free fluid. I see no ventral or inguinal hernia nor inguinal pathologic sized adenopathy. Distal left colon, sigmoid and rectum intact without inflammatory change. Distal small bowel loops unremarkable. Appendix is seen and normal without appendicolith or inflammatory change. Impression: 1. There is no pelvic mass or free fluid, adenopathy, evidence of acute appendicitis or other intrapelvic abnormality. No ventral or inguinal hernia. 2. Solid organs of the upper abdomen without acute finding. There is a prior cholecystectomy. 3. There is no renal/ureteral/bladder stone. Negative exam. Electronically Signed by Gumaro Hi MD 08/24/2018 08:31 P
[2018-08-24] MEDS ORDERED: DICYCLOMINE INJ 20MG/2ML (J0500) IM ONE (09:45)
--- NOTE | 2018-08-24 09:50 | REPVR ---
EXAM: US Pelvis Complete, Transabdominal EXAM DATE/TIME: 08/24/18 (7:22am) CLINICAL HISTORY: 27 year old female with pelvic pain / lower abdominal pain TECHNIQUE: Real-time transabdominal pelvic ultrasound with image documentation. Patient refused a transvaginal examination. Complete examination. COMPARISON: US PELVIS of 03/28/18 FINDINGS: (limited examination due to patient body habitus) The LMP is not provided. The uterus is anteverted, measuring 8.3 x 4.2 x 5.0 cm in dimensions. No uterine mass is seen. The endometrium is not clearly visualized. The right ovary measures 3.1 x 1.9 x 3.4 cm in size. The left ovary measures 3.2 x 2.0 x 1.6 cm in size. No free pelvic fluid is seen. No solid adnexal masses. IMPRESSION: No acute pathology. Limited examination due to patient body habitus. Electronically signed by: Sarahi Britt On 08/24/2018 09:50:45 AM
[2018-08-24] MEDS ORDERED: DICY20TA11 PO (10:20)
== END 2018-08-24 10:46 | disposition home or self-care (01) ==
LOC: M ED 05:52
DX: G89.29 Other chronic pain (principal); R10.30 Lower abdominal pain, unspecified; R50.9 Fever, unspecified; R11.2 Nausea with vomiting, unspecified; K21.9 Gastro-esophageal reflux disease without esophagitis; Z87.19 Personal history of other diseases of the digestive system; Z87.440 Personal history of urinary (tract) infections; Z87.442 Personal history of urinary calculi; Z79.899 Other long term (current) drug therapy; Z88.2 Allergy status to sulfonamides; Z88.8 Allergy status to other drugs, medicaments and biological substances; F17.210 Nicotine dependence, cigarettes, uncomplicated
CPT/HCPCS: 74177; 76856; 80048; 80076; 81001; 81025; 83690; 85025; 96374; 96375; 99284; J1200; J1885; Q9967

== ENCOUNTER 2018-10-07 09:21 | Emergency (ER) | payer OTHER ==
[~2018-10-07] VITALS: Ht 170.2 cm; Wt 139.2 kg
[~2018-10-07 09:21] MED LIST changes: -/ONDA4TA PO; -/OXCA30TA OR; +DICY20TA11 PO; +HYDR-3715 PO; +METH-1022 PO; -METH-914 PO; -NORC1TAB4 PO; +NORC1TAB7 PO; -NORCOTAB PO; +ONDA-1 PO; +TRIL1TAB OR
[2018-10-07] MEDS ORDERED: DOXY100T (09:30)
[2018-10-07] MEDS ORDERED: BUSP5TA (09:30)
[2018-10-07] MEDS ORDERED: PARO40TA2 (09:30)
[2018-10-07] MEDS ORDERED: CARI1TAB7 (09:30)
[2018-10-07] MEDS ORDERED: diphenhydrAMINE INJ 50MG/ML VIAL (J1200) IV ONE ×2 (10:30→11:45)
[2018-10-07] MEDS ORDERED: FAMOTIDINE INJ 20MG/2ML VIAL (S0028) IV ONE (10:30)
[2018-10-07] MEDS ORDERED: methylPREDNISolone INJ 125 MG/2 ML VIAL (J2930) IV ONE (10:30)
[2018-10-07] MEDS ORDERED: LORazepam 0.5 MG TAB PO STA (10:51)
[2018-10-07 11:01] LABS: BASO # 0.1 10^3/uL (0.0-0.2); BASO % 0.6 % (0.0-1.0); EOS # 0.3 10^3/uL (0.0-0.50); EOS % 3.6 % (0.0-3.0); HEMATOCRIT 34.6 % (36.0-47.0); HEMOGLOBIN 9.9 g/dl (12.0-15.5); LYMPH # 2.5 10^3/uL (1.5-6.5); LYMPH % 30.7 % (24.0-44.0); MEAN CORPUSCULAR HEMOGLOBIN 21.1 pg (27.0-33.0); MEAN CORPUSCULAR HGB CONC 28.6 g/dl (32.0-36.5); MEAN CORPUSCULAR VOLUME 73.8 fl (80.0-96.0); MONO # 0.3 10^3/uL (0.0-0.8); MONO % 3.6 % (0.0-5.0); NEUTROPHILS % 60.7 % (36.0-66.0); PLATELET COUNT, AUTOMATED 453 10^3/uL (150-450); RED BLOOD COUNT 4.69 10^6/uL (4.00-5.40); WHITE BLOOD COUNT 8.3 10^3/uL (4.0-10.0)
[2018-10-07 11:30] LABS: ALBUMIN 3.2 GM/DL (3.2-5.2); ALT/SGPT 36 U/L (12-78); BILIRUBIN,DIRECT < 0.1 MG/DL (0.0-0.2); BILIRUBIN,TOTAL 0.2 MG/DL (0.2-1.0); BLOOD UREA NITROGEN 6 MG/DL (7-18); CALCIUM LEVEL 8.6 MG/DL (8.5-10.1); CARBON DIOXIDE LEVEL 28 MEQ/L (21-32); CHLORIDE LEVEL 107 MEQ/L (98-107); CREATININE FOR GFR 0.67 MG/DL (0.55-1.30); GLOMERULAR FILTRATION RATE > 60.0 (>60); GLUCOSE, FASTING 97 MG/DL (70-100); POTASSIUM SERUM 4.3 MEQ/L (3.5-5.1); SODIUM LEVEL 139 MEQ/L (136-145)
[2018-10-07] MEDS ORDERED: VYVA20CA PO (11:38)
[2018-10-07 11:47] VITALS: BP 134/64
== END 2018-10-07 12:05 | disposition home or self-care (01) ==
LOC: M ED 09:21
DX: F41.9 Anxiety disorder, unspecified (principal); F32.9 Major depressive disorder, single episode, unspecified; F90.9 Attention-deficit hyperactivity disorder, unspecified type; F43.10 Post-traumatic stress disorder, unspecified; F13.10 Sedative, hypnotic or anxiolytic abuse, uncomplicated; I10 Essential (primary) hypertension; J45.909 Unspecified asthma, uncomplicated; G43.909 Migraine, unspecified, not intractable, without status migrainosus; G62.9 Polyneuropathy, unspecified; M79.7 Fibromyalgia; K21.9 Gastro-esophageal reflux disease without esophagitis; M54.5 Low back pain; D64.9 Anemia, unspecified; Z87.442 Personal history of urinary calculi; N80.0 Endometriosis of uterus; Z87.19 Personal history of other diseases of the digestive system; Z88.8 Allergy status to other drugs, medicaments and biological substances; Z88.2 Allergy status to sulfonamides; Z79.899 Other long term (current) drug therapy
CPT/HCPCS: 36415; 80048; 80076; 85025; 96374; 96375; 99284; J1200; J2930

== ENCOUNTER 2018-10-26 13:15 | Emergency (ER) | payer OTHER ==
[~2018-10-26] VITALS: Ht 170.2 cm; Wt 138.6 kg
[~2018-10-26 13:15] MED LIST changes: +BUSP5TA; +CARI1TAB7; +DOXY100T; +PARO40TA2
[2018-10-26] MEDS ORDERED: SOMA350T PO (13:51)
[2018-10-26] MEDS ORDERED: ALL10TAB28 (13:51)
[2018-10-26] MEDS ORDERED: CLON1TAB8 (13:51)
[2018-10-26] MEDS ORDERED: diphenhydrAMINE INJ 50MG/ML VIAL (J1200) IM STA (14:24)
[2018-10-26] MEDS ORDERED: LORazepam 2 MG/ML VIAL (J2060) IM STA (14:24)
[2018-10-26 17:07] VITALS: BP 147/67
== END 2018-10-26 17:03 | disposition home or self-care (01) ==
LOC: M ED 13:15
DX: F41.0 Panic disorder [episodic paroxysmal anxiety] (principal); J45.909 Unspecified asthma, uncomplicated; G43.909 Migraine, unspecified, not intractable, without status migrainosus; F33.9 Major depressive disorder, recurrent, unspecified; F40.00 Agoraphobia, unspecified; M79.7 Fibromyalgia; Z79.899 Other long term (current) drug therapy; Z88.1 Allergy status to other antibiotic agents; Z88.2 Allergy status to sulfonamides; Z88.8 Allergy status to other drugs, medicaments and biological substances; F17.210 Nicotine dependence, cigarettes, uncomplicated
CPT/HCPCS: 96372; 99284; J1200; J2060

== ENCOUNTER 2018-10-28 13:09 | Emergency (ER) | payer OTHER ==
[~2018-10-28] VITALS: Ht 170.2 cm; Wt 138.6 kg
[~2018-10-28 13:09] MED LIST changes: +ALL10TAB28; +CLON1TAB8
[2018-10-28] MEDS ORDERED: diphenhydrAMINE INJ 50MG/ML VIAL (J1200) IV ONE (14:45)
[2018-10-28] MEDS ORDERED: ONDANSETRON 4MG/2ML VIAL (J2405) IV ONE (14:45)
[2018-10-28] MEDS ORDERED: HALOPERIDOL 5 MG/ML VIAL (J1630) IV ONE (14:45)
[2018-10-28 16:09] LABS: CHLAMYDIA DNA AMPLIFICATION NEGATIVE (NEGATIVE); GC DNA AMPLIFICATION NEGATIVE (NEGATIVE)
[2018-10-28] MEDS ORDERED: PHEN-593 PO (16:59)
[2018-10-28] MEDS ORDERED: CIPR-249 PO (16:59)
[2018-10-28] MEDS ORDERED: CIPROFLOXACIN 500 MG TAB PO ONE (17:00)
[2018-10-28] MEDS ORDERED: PHENAZOPYRIDINE 100 MG TAB PO ONE (17:00)
--- NOTE | 2018-10-28 17:08 | REP ---
Pelvic sonography: History: Vaginal and pelvic pain. Findings: Transabdominal and transvaginal scanning are performed. Uterine dimensions are normal at 7.9 x 3.8 x 5.1 cm. Endometrial echo is 0.9 cm thick. The uterus is somewhat heterogeneous. No definable uterine mass is seen. No free fluid is noted. Normal ovaries are seen. Right ovary measures 2.3 x 1.7 x 2.1 cm. Left ovary measures 2.3 x 2.2 x 2.4 cm. Doppler flow is seen in both ovaries. Urinary bladder garcia are smooth. Impression: No abnormality noted. Electronically Signed by Glen Cordero MD 10/28/2018 08:25 P
[2018-10-28 17:27] VITALS: BP 129/87
== END 2018-10-28 17:30 | disposition home or self-care (01) ==
LOC: M ED 13:09
DX: N39.0 Urinary tract infection, site not specified (principal); I10 Essential (primary) hypertension; J45.909 Unspecified asthma, uncomplicated; G62.9 Polyneuropathy, unspecified; D64.9 Anemia, unspecified; M79.7 Fibromyalgia; N80.9 Endometriosis, unspecified; E66.8 Other obesity; Z79.899 Other long term (current) drug therapy; Z88.2 Allergy status to sulfonamides; Z88.8 Allergy status to other drugs, medicaments and biological substances; F17.210 Nicotine dependence, cigarettes, uncomplicated
CPT/HCPCS: 76830; 76856; 81001; 87088; 87186; 87210; 87491; 87591; 93976; 96374; 96375; 99284; J1200; J1630; J2405

== ENCOUNTER 2018-11-10 11:33 | Emergency (ER) | payer OTHER ==
[~2018-11-10] VITALS: Ht 170.2 cm; Wt 138.6 kg
[~2018-11-10 11:33] MED LIST changes: -ALL10TAB28; +ALL10TAB28 PO; -CLON1TAB8; +PHEN-593 PO; -VENTAER; +VENTAER INH
[2018-11-10 11:34] VITALS: BP 127/75
[2018-11-20] MEDS ORDERED: HYDR-4514 PO (17:46)
[2018-11-20] MEDS ORDERED: BANO25TA PO (17:52)
[2018-11-20] MEDS ORDERED: PARO40TA3 PO (20:34)
[2018-11-20] MEDS ORDERED: MELA10TA2 PO (20:34)
[2018-11-20] MEDS ORDERED: DIPH50CA PO (20:34)
[2018-11-20] MEDS ORDERED: ONDA4TAB6 PO (20:34)
[2018-11-20] MEDS ORDERED: [UNRECOGNIZED DRUG - CODE] PO (20:34)
[2018-11-21] MEDS ORDERED: ACET1TAB55 PO (14:38)
== END 2018-11-10 12:44 | disposition left against medical advice (07) ==
LOC: M ED 11:33
DX: Z53.21 Procedure and treatment not carried out due to patient leaving prior to being seen by health care provider (principal)

== ENCOUNTER → 2018-11-12 | Outpatient (CLI) | payer OTHER ==
[~2018-11-12] MED LIST changes: +ALL10TAB28; -ALL10TAB28 PO; +CLON1TAB8; +VENTAER; -VENTAER INH
--- NOTE | 2018-11-12 16:50 | REP ---
Clinical: Trauma. . Technique: AP, lateral, bilateral oblique views of the left elbow. Findings: No acute fracture or dislocation is appreciated. Joint spaces and surrounding soft tissues appear normal. Lateral view demonstrates normal positioning to the anterior and posterior fat pads without evidence for effusion/hemarthrosis. No subcutaneous emphysema or foreign body identified. Impression: Normal left elbow radiographs. Electronically Signed by Oleg Marr MD 11/12/2018 04:41 P
--- NOTE | 2018-11-12 16:51 | REP ---
Clinical: Trauma. Technique: AP, lateral, bilateral oblique views. Findings: The carpal bones, surrounding osseous structures, soft tissues, and joint spaces are normal. There is no evidence for acute fracture or dislocation. No subcutaneous emphysema or radiodense foreign body. Impression: Normal wrist series. No acute fracture or dislocation Electronically Signed by Oleg Marr MD 11/12/2018 04:42 P
--- NOTE | 2018-11-12 17:08 | REP ---
Left hand series: Four views. History: Acute pain. Findings: Four views of the left hand are compared with the June 20, 2018 prior radiographs. Overall mineralization pattern is normal. No fracture or subluxation is seen. Soft tissues are unremarkable. There is a metallic ring on the long finger over the proximal phalanx. Impression: No acute bony abnormalities seen. Electronically Signed by Glen Cordero MD 11/14/2018 05:55 P
== END ==
LOC: M RAD 16:18
PROVIDERS: ATTEND Internal Medicine
DX: M25.532 Pain in left wrist (principal)

== ENCOUNTER 2018-11-21 16:40 | Inpatient (IN) | payer MEDICAID, OTHER ==
[~2018-11-21] VITALS: Ht 170.2 cm; Wt 137.0 kg
[2018-11-21] MEDS: NICOTINE 21MG/24HR 1 EA TRANSDERMAL TD SCH (09:00)
[~2018-11-21 16:40] MED LIST changes: +ACET1TAB55 PO; -ALL10TAB28; +ALL10TAB28 PO; +BANO25TA PO; -CLON1TAB8; +DIPH50CA PO; +HYDR-4514 PO; +MELA10TA2 PO; +PARO40TA3 PO; -VENTAER; +VENTAER INH; +[UNRECOGNIZED DRUG - CODE] PO
[2018-11-21] MEDS ORDERED: MAALOX 30 ML SUSP *UDC PO PRN (17:30)
[2018-11-21] MEDS ORDERED: MOM 30ML SUSPENSION UDC PO PRN (17:30)
[2018-11-21] MEDS ORDERED: ALBUTEROL 90 MCG/ACT 8GM HFA INHALER INH PRN (17:30)
--- NOTE | 2018-11-21 17:56 | HPEPDOC ---
[facility] Medical History & Physical Date of Admission Nov 21, 2018 Date of Service: Nov 21, 2018 Primary Care Physician: UBALDO NAPIER MD History and Physical Medical H&P consult requested by Dr An CHIEF COMPLAINT:overdose polysubstance HISTORY OF PRESENT ILLNESS: 28-year-old female with extensive psychiatric history including PTSD, depression, ADHD, fibromyalgia was discharged from ICU hospital today and transferred to [facility]. She intially was brought in by EMS for lethargy and drug overdose. Patient was reportedly found to be lethargic and fell at home and her 5-year-old son called 911 to bring patient in. In ER, patient was found to be very lethargic, barely awake to answer questions. She was patient placed under observation in the ICU and her mentation improved. She was given support care with IVF and telemetry monitoring and medically stable for transfer to [facility] for further psychiatric evaluation and treatment. PAST MEDICAL HISTORY: 1. fibromyalgia with chronic back pain 2. PTSD 3. depression/anxiety with history of cutting 4. ADHD 5. EBV/[place] 2017 6. Migraines 7. GERD 8. Genital Herpes 9. asthma 10 iron deficiency anemia sine 2014 and earlier PAST SURGICAL HISTORY: Cholecystectomy Left fallopian tube removal T&A SOCIAL HISTORY: single, 1 child at home; +tobacco 1/2 ppd; denies EtOH use FAMILY HISTORY: unknown except for father with seizure disorder; mother from overdose. ALLERGIES: Please see below. REVIEW OF SYSTEMS: 10 systems reviewed and negative, except for chronic pain - right shoulder, right ankle, left wrist; back pain. no N, no v, no diarrhea, no constipation. no fever. HOME MEDICATIONS: Please see below. PHYSICAL EXAMINATION: Vitals: 98.0-70-16-117/71 - 98%RA General: pleasant, NAD AAOx3 Skin: multiple tatoos HRRR LCTA no W/R/R Abdomen: obese, NT ND NABS Ext: no edema LABORATORY DATA: see below ASSESSMENT: 1. polysubstance overdose- resolved and medically stable 2. hypotension due to polysubstance use (including opioids, muscle relaxors, etc) - resolved 3. chronic pain syndrome 4. iron deficiency anemia -chronic - with hgb ranging 8.5 to 10.6 since 2016 and earlier 4. Unspecified mood disorder PLAN: Would treat her current pain with non opioid medications. She states an allergy to ALL NSAIDS - so would recommend tylenol, topical muscle rubs (bengay like), lidocaine patches prn, heating pad, ice, etc which ever may benefit her most. As an outpatient, she can participate in PT/OT and aquatic therapy to help her chronic pain. As for muscle relaxors, will defer this to psychiatry as many can interfere with psychiatric medications. As for her chronic anemia - will start iron therapy but should have OUTPATIENT workup thru her PCP to determine source, including EGD, Colonoscopy, etc. At this time will sign off on case, please call hospitalist if further assistance is needed. Thank you for allowing the hospitalists to participate in the medical care of this patient. Laboratory Data CBC/BMP Item Value Date Time White Blood Count 7.0 10^3/uL 11/21/18 0548 Hemoglobin 8.5 g/dl L 11/21/18 0548 Hematocrit 29.7 % L 11/21/18 0548 Platelet Count 287 10^3/uL 11/21/18 0548 Sodium Level 145 MEQ/L 11/21/18 0548 Potassium Level 4.0 MEQ/L 11/21/18 0548 Blood Urea Nitrogen 10 MG/DL 11/21/18 0548 Creatinine 0.77 MG/DL 11/21/18 0548 Home Medications Scheduled Cetirizine HCl (Cetirizine HCl) 10 Mg Tablet, 10 MG PO DAILY Gabapentin (Gabapentin) 600 Mg Tab, 600 MG PO TID Omeprazole (Omeprazole) 40 Mg Cap, 40 MG PO DAILY Scheduled PRN Acetaminophen (Acetaminophen) 325 Mg Tablet, 650 MG PO Q4HP PRN for PAIN OR FEVER Albuterol Sulfate (Ventolin Hfa) 108 Mcg/Act Aer, 2 PUFF INH Q4H PRN for SOB/WHEEZING Allergies Coded Allergies: aripiprazole (Verified Allergy, Severe, anaphylaxis, 10/26/18) buspirone (Verified Allergy, Severe, anaphalaxis, 10/28/18) Sulfa (Sulfonamide Antibiotics) (Verified Allergy, Intermediate, hives, 10/26/18) NSAIDS (Non-Steroidal Anti-Inflamma (Verified Adverse Reaction, Intermediate, BLEEDING/ULCER - CAN NOT TAKE PER DOCTOR'S REQUEST, 10/26/18) methocarbamol (Verified Adverse Reaction, Intermediate, panic attacks, 10/26/18) metoclopramide (Verified Adverse Reaction, Intermediate, panic attacks, 10/26/18) A-FIB/CHADSVASC A-FIB History Current/History of A-Fib/PAF?: No JULIET PRUETT DO Nov 21, 2018 17:56
[2018-11-21 18:00] VITALS: BP 142/73
[2018-11-21] MEDS: DOCUSATE SODIUM 100 MG CAP PO SCH (20:52)
[2018-11-21] MEDS: diphenhydrAMINE 50 MG CAP PO PRN (20:55)
[2018-11-21] MEDS: FERROUS GLUCONATE 324 MG TAB PO SCH (20:55)
[2018-11-21] MEDS: CYCLOBENZAPRINE 5MG TABLET PO PRN (20:55)
[2018-11-21] MEDS: ACETAMINOPHEN TAB 650MG DOSE (2X325MG) PO PRN (20:56)
[2018-11-21] MEDS: GABAPENTIN 300 MG CAP PO SCH (20:56)
[2018-11-21] MEDS: OLANZapine ORAL DISINTEGRATING TAB 5MG PO PRN (21:10)
[2018-11-22 06:42] VITALS: BP 120/61
[2018-11-22] MEDS: DOCUSATE SODIUM 100 MG CAP PO SCH ×2 (09:00→20:53)
[2018-11-22] MEDS: NICOTINE 21MG/24HR 1 EA TRANSDERMAL TD SCH (09:00)
[2018-11-22] MEDS: PARoxetine 20 MG TAB PO SCH (10:06)
[2018-11-22] MEDS: OMEPRAZOLE 20 MG CAP PO SCH (10:06)
[2018-11-22] MEDS: CETIRIZINE (ZyrTEC) 10 MG TAB PO SCH (10:06)
[2018-11-22] MEDS: NYSTATIN 100,000 UNITS/GM TOPICAL PWD 15 GM TOP SCH ×2 (10:06→20:33)
[2018-11-22] MEDS: FERROUS GLUCONATE 324 MG TAB PO SCH ×2 (10:07→20:33)
[2018-11-22] MEDS: GABAPENTIN 300 MG CAP PO SCH ×3 (10:07→20:32)
[2018-11-22] MEDS: ACETAMINOPHEN TAB 650MG DOSE (2X325MG) PO PRN ×3 (10:08→21:15)
--- NOTE | 2018-11-22 17:32 | MHHPEPDOC ---
General Legal Status: 9.39 Chief Complaint "I was given hydrocodone by my doctor. They thought I overdosed. History of Present Illness HISTORY OF THE PRESENT ILLNESS: Patient is a 28 -year-old , female, who states she is but her is "missing" "she has a 5-year-old son named neri Mortensen. According to the patient. She was given hydrocodone by her physician, Dr. Lopez in when she collapsed with her 5-year-old son called the police. She denies any medical history. Her surgical history is positive for a and fallopian tube surgery as well as gallbladder removal. She states that she had had wrist pain and Dr. Lopez had put her on hydrocodone. She states she has been taking gabapentin, Paxil, Klonopin, Ambien and Soma for "fibromyalgia". She states she is also been treated for anxiety and in damage on her back. Her legal history. He has not been positive, but states she will be arrested for child neglect. Neri jansen is now at his father's named [place]. They have never been . Patient states she was on disability for psychological reasons, but it was cut off in 2013 and she was on DSS and taking finances from her grandmother. Patient states she has been hospitalized since she was 18 times. Patient states she is always been admitted for various suicidal statements or intentions. She states she has had a history of panic attacks twice a week and that she is afraid of groups, but also can have panic attacks based on her thinking and her mood swings. Further history was gotten by Dr. Cabrera's consultation and will be reviewed Psychiatric Review of Systems Depression (2 or more weeks): depressed mood, feelings of worthlesness, decreased energy, difficulty concentrating Светлана (4 or more days of): denies Psychosis: denies PTSD: history of trauma, mood fluctuations Anxiety: panic attacks Anxiety/ 6 months or more of: difficulty concentrating, irritability Past Psychiatric History Previous Psychiatric Diagnosis: Numerous diagnoses Previous Psychiatric Admissions: Numerous admissions. Suicide Attempts: Numerous suicide attempts. Psychiatric Follow-up:, Follow-up at this time is erratic. Psychiatric medications:. Previous medications include gabapentin, Paxil and Klonopin, Soma and Ambien. Past Medical History Medical Problems fallopian tube surgery, gallbladder removal, "fibromyalgia" Head Injury: Yes Seizures: No Hospitalizations: Yes Surgeries: Yes Family Medical/Psychiatric HX Psychiatric Disorders: No Addiction: No Suicide Attemps/Completions: No Addiction History cocaine, other Social History Childhood: . Abuse/Trauma:. Current Living Situation: Living with her son. Education:, High school. Employment: no recent employment. Social Support: Grandmother and DSS. Legal: None as of yet. Marital: . has not been located Mental Status Examination General Appearance: unkempt, disheveled, hospital scubs/clothing Build: overweight Demeanor: withdrawn Eye Contact: average Activity: slowed Behavior: cooperative Speech: slow Mood: depressed Affect: flat Thought Process: logical/linear Thought Content (Other): guarded Thought Content (Aggressive): none reported Perception (Hallucinations): none reported Perception (Other): none reported Cognition (Impairment of): none reported Cognition(Intelligence Est.): average Oriented: Oriented times three Insight: poor Judgment: Poor Psychosis: Denies Diagnoses Major depression with mixed substance abuse A-FIB/CHADSVASC A-FIB History Current/History of A-Fib/PAF?: No Initial Treatment Plan 1. Patient was admitted on a [9.39] status. 2. Complete history was obtained. 3. With patients permission, family will be contacted and database will be expanded. 4. Patients medication regimen will be reviewed and changed accordingly. 5. Patient will be provided with protected environment. 6. Patient will be treated with individual, group, and milieu therapies. 7. Patient will receive supportive psych-education. 8. Discharge planning will commence immediately. 9. Outpatient follow-up treatment will be strongly recommended. 10. The initial treatment plan will focus initially on: * Depression. * Risk for suicide. * Substance abuse. ESTIMATED LENGTH OF STAY: - DAYS. TIME SPENT COUNSELING AND COORDINATING INITIAL CARE: minutes. Vital Signs Vital Signs Date Time Temp Pulse Resp B/P (MAP) Pulse Ox O2 Delivery O2 Flow Rate FiO2 11/22/18 06:42 98.6 74 14 120/61 (80) 11/21/18 18:00 96 Medications Scheduled Cetirizine HCl (Cetirizine HCl) 10 Mg Tablet, 10 MG PO DAILY, (Reported) Gabapentin (Gabapentin) 600 Mg Tab, 600 MG PO TID, (Reported) Omeprazole (Omeprazole) 40 Mg Cap, 40 MG PO DAILY, (Reported) Scheduled PRN Acetaminophen (Acetaminophen) 325 Mg Tablet, 650 MG PO Q4HP PRN for PAIN OR FEVER Albuterol Sulfate (Ventolin Hfa) 108 Mcg/Act Aer, 2 PUFF INH Q4H PRN for S OB/WHEEZING, (Reported) Allergies Coded Allergies: aripiprazole (Verified Allergy, Severe, anaphylaxis, 10/26/18) buspirone (Verified Allergy, Severe, anaphalaxis, 10/28/18) Sulfa (Sulfonamide Antibiotics) (Verified Allergy, Intermediate, hives, 10/26/18) NSAIDS (Non-Steroidal Anti-Inflamma (Verified Adverse Reaction, Intermediate, BLEEDING/ULCER - CAN NOT TAKE PER DOCTOR'S REQUEST, 10/26/18) methocarbamol (Verified Adverse Reaction, Intermediate, panic attacks, 10/26/18) metoclopramide (Verified Adverse Reaction, Intermediate, panic attacks, 10/26/18) CATERINA CAMARGO MD Nov 22, 2018 17:32
[2018-11-22 18:00] VITALS: BP 130/77
[2018-11-22] MEDS: hydrOXYzine 10 MG TAB PO PRN (20:33)
[2018-11-22] MEDS: CYCLOBENZAPRINE 5MG TABLET PO PRN (20:34)
[2018-11-22] MEDS: diphenhydrAMINE 50 MG CAP PO PRN (20:34)
[2018-11-22] MEDS: OLANZapine ORAL DISINTEGRATING TAB 5MG PO PRN (22:01)
[2018-11-22] MEDS ORDERED: NYSTATIN 100,000 UNITS/GM TOPICAL PWD 15 GM TOP SCH (23:00)
[2018-11-23 06:34] VITALS: BP 114/65
[2018-11-23] MEDS: NICOTINE 21MG/24HR 1 EA TRANSDERMAL TD SCH (08:19)
[2018-11-23] MEDS: DOCUSATE SODIUM 100 MG CAP PO SCH ×2 (08:19→20:21)
[2018-11-23] MEDS: GABAPENTIN 300 MG CAP PO SCH ×3 (08:22→20:18)
[2018-11-23] MEDS: NYSTATIN 100,000 UNITS/GM TOPICAL PWD 15 GM TOP SCH ×2 (08:23→20:21)
[2018-11-23] MEDS: CYCLOBENZAPRINE 5MG TABLET PO PRN ×2 (08:23→20:18)
[2018-11-23] MEDS: ACETAMINOPHEN TAB 650MG DOSE (2X325MG) PO PRN ×2 (08:23→18:03)
[2018-11-23] MEDS: OMEPRAZOLE 20 MG CAP PO SCH (08:23)
[2018-11-23] MEDS: FERROUS GLUCONATE 324 MG TAB PO SCH ×2 (08:23→20:18)
[2018-11-23] MEDS: PARoxetine 20 MG TAB PO SCH (08:23)
[2018-11-23] MEDS: CETIRIZINE (ZyrTEC) 10 MG TAB PO SCH (08:23)
[2018-11-23] MEDS: OLANZapine ORAL DISINTEGRATING TAB 5MG PO PRN ×2 (10:29→22:56)
--- NOTE | 2018-11-23 15:19 | MHIPNPDOC ---
[facility] Progress Note Progress Note DATE OF SERVICE: 11/23/18 HISTORY: Patient's son was removed and father of son has put restraining order on her due to her collapsing following taking of hydrocodone. VITAL SIGNS: See below. NEW TEST RESULTS: None. CURRENT MEDICATIONS: See below. MENTAL STATUS EXAMINATION: Patient is a 28-year old female, who is, admitted following overdose, which patient denies. Speech: Is how normal. Language skills are for. Thought processes including: No gross abnormality. Thought content:. No disturbance of content. Abstract reasoning, and computation: Poor. Abstraction. Description of associations:. No loose association. Description of abnormal or psychotic thoughts:. No psychotic thought. Judgment: Poor. Insight:, Poor. Orientation: Intact 3. Recent and remote memory:. Intact. Attention span and concentration: Intact. Language: Intact. Fund of knowledge:. Full. Mood: Sad. Affect:, Congruent. DIAGNOSES: 1. Depressive reaction. 2., mixed substance use. 3. Family stressors and personality cluster. ASSESSMENT: Use of drugs and personality difficulties, has led to this 28-year-old female into legal difficulties. Her insight into this problem is very poor MANAGEMENT PLAN: Continued observation and consultation TIME SPENT: 35 minutes. Vital Signs Vital Signs Date Time Temp Pulse Resp B/P (MAP) Pulse Ox O2 Delivery O2 Flow Rate FiO2 11/23/18 06:34 98.0 66 12 114/65 (81) 11/21/18 18:00 96 Current Medications Current Medications Acetaminophen (Tylenol Tab) 650 mg Q6HP PRN PO HEADACHE or DISCOMFORT Last administered on 11/23/18at 08:23; Start 11/21/18 at 17:30 Al Hydrox/Mg Hydrox/Simethicone (Mylanta) 30 ml Q4HP PRN PO HEARTBURN/INDIGESTION; Start 11/21/18 at 17:30 Albuterol Sulfate (Proventil, Ventolin Hfa) 2 puff Q4HP PRN INH SHORTNESS OF BREATH; Start 11/21/18 at 17:30 Cetirizine HCl (ZyrTEC) 10 mg DAILY PO Last administered on 11/23/18at 08:23; Start 11/22/18 at 09:00 Cyclobenzaprine HCl (Flexeril) 5 mg BIDP PRN PO muscle spasms Last administered on 11/23/18at 08:23; Start 11/21/18 at 17:30 Diphenhydramine HCl (Benadryl) 50 mg QHSP PRN PO INSOMNIA Last administered on 11/22/18 20:34; Start 11/21/18 at 17:30 Docusate Sodium (Colace) 200 mg BID PO ; Start 11/21/18 at 21:00 Ferrous Gluconate (Fergon) 324 mg BID PO Last administered on 11/23/18 08:23; Start 11/21/18 at 21:00 Gabapentin (Neurontin) 600 mg TID PO Last administered on 11/23/18 08:22; Start 11/21/18 at 21:00 Hydroxyzine HCl (Atarax) 10 mg BIDP PRN PO ANXIETY/AGITATION Last administered on 11/22/18 20:33; Start 11/22/18 at 13:45 Magnesium Hydroxide (Milk Of Magnesia) 30 ml DAILYPRN PRN PO CONSTIPATION; Start 11/21/18 at 17:30 Nicotine (Nicoderm Cq 21mg) 1 patch DAILY TD ; Start 11/21/18 at 09:00 Nystatin (Mycostatin Powder, Nystop) Apply to abdominal folds BID BID TOP Last administered on 11/23/18 08:23; Start 11/22/18 at 09:00 Nystatin (Mycostatin Powder, Nystop) Apply to abdominal folds BID BID TOP ; Start 11/22/18 at 23:00; Stop 11/22/18 at 23:00; Status DC Olanzapine (ZyPREXA ZYDIS) 10 mg BIDP PRN PO anxiety/agitation Last administered on 11/23/18 10:29; Start 11/21/18 at 21:00 Omeprazole (PriLOSEC) 40 mg DAILY PO Last administered on 11/23/18 08:23; Start 11/22/18 at 09:00 Paroxetine HCl (PAXil) 60 mg DAILY PO Last administered on 11/23/18 08:23; Start 11/22/18 at 09:00 Allergies Coded Allergies: aripiprazole (Verified Allergy, Severe, anaphylaxis, 10/26/18) buspirone (Verified Allergy, Severe, anaphalaxis, 10/28/18) Sulfa (Sulfonamide Antibiotics) (Verified Allergy, Intermediate, hives, 10/26/18) NSAIDS (Non-Steroidal Anti-Inflamma (Verified Adverse Reaction, Intermediate, BLEEDING/ULCER - CAN NOT TAKE PER DOCTOR'S REQUEST, 10/26/18) methocarbamol (Verified Adverse Reaction, Intermediate, panic attacks, 10/26/18) metoclopramide (Verified Adverse Reaction, Intermediate, panic attacks, 10/26/18) CATERINA CAMARGO MD Nov 23, 2018 15:19
[2018-11-23] MEDS: hydrOXYzine 10 MG TAB PO PRN ×2 (15:23→22:56)
[2018-11-23 18:00] VITALS: BP 140/82
[2018-11-23] MEDS: diphenhydrAMINE 50 MG CAP PO PRN (20:30)
[2018-11-24 06:40] VITALS: BP 137/80
[2018-11-24] MEDS: NICOTINE 21MG/24HR 1 EA TRANSDERMAL TD SCH (08:19)
[2018-11-24] MEDS: DOCUSATE SODIUM 100 MG CAP PO SCH ×2 (08:19→20:49)
[2018-11-24] MEDS: GABAPENTIN 300 MG CAP PO SCH ×3 (08:20→20:27)
[2018-11-24] MEDS: CETIRIZINE (ZyrTEC) 10 MG TAB PO SCH (08:20)
[2018-11-24] MEDS: OMEPRAZOLE 20 MG CAP PO SCH (08:20)
[2018-11-24] MEDS: NYSTATIN 100,000 UNITS/GM TOPICAL PWD 15 GM TOP SCH ×2 (08:20→20:49)
[2018-11-24] MEDS: CYCLOBENZAPRINE 5MG TABLET PO PRN ×2 (08:20→20:27)
[2018-11-24] MEDS: FERROUS GLUCONATE 324 MG TAB PO SCH ×2 (08:20→20:27)
[2018-11-24] MEDS: PARoxetine 20 MG TAB PO SCH (08:20)
--- NOTE | 2018-11-24 08:46 | MHIPNPDOC ---
[facility] Progress Note Progress Note DATE OF SERVICE: 11/24/18 HISTORY: 28-year-old female on numerous medications, who collapsed after taking hydrocodone, which had been prescribed in addition to her other medications. VITAL SIGNS: See below. NEW TEST RESULTS: . CURRENT MEDICATIONS: See below. MENTAL STATUS EXAMINATION: Patient is a 28-year old female, who is in improved mood, but will be dealing with legal issues as her son has been removed and the father of her son has placed protective orders upon her. Speech: Is no abnormalities. Language skills are intact. Thought processes including:. No gross abnormalities. Thought content:. No gross abnormalities. Abstract reasoning, and computation: Able to abstract. Description of associations:. No loose associations. Description of abnormal or psychotic thoughts:. No present abnormal or psychotic thinking. Judgment: Improving. Insight:, Improving. Orientation: Intact 3. Recent and remote memory:. No disturbance of recent remote memory. Attention span and concentration:. No disturbance of attention span or concentration. Language:. As above. Fund of knowledge:, Intact. Mood:, Improved. Affect:. Bright. DIAGNOSES: 1. Depressive disorder. 2., Personality cluster. 3. Family and parenting stressors. ASSESSMENT:. This patient will be discharged. Follow-up care will be reset and recommendations that this patient be on as few medications as possible MANAGEMENT PLAN: Discharge planning in progress. TIME SPENT: 35 minutes. Vital Signs Vital Signs Date Time Temp Pulse Resp B/P (MAP) Pulse Ox O2 Delivery O2 Flow Rate FiO2 11/24/18 06:40 98.7 83 14 137/80 (99) 11/21/18 18:00 96 Current Medications Current Medications Acetaminophen (Tylenol Tab) 650 mg Q6HP PRN PO HEADACHE or DISCOMFORT Last administered on 11/23/18at 18:03; Start 11/21/18 at 17:30 Al Hydrox/Mg Hydrox/Simethicone (Mylanta) 30 ml Q4HP PRN PO HEARTBURN/INDIGESTION; Start 11/21/18 at 17:30 Albuterol Sulfate (Proventil, Ventolin Hfa) 2 puff Q4HP PRN INH SHORTNESS OF BREATH; Start 11/21/18 at 17:30 Cetirizine HCl (ZyrTEC) 10 mg DAILY PO Last administered on 11/24/18at 08:20; Start 11/22/18 at 09:00 Cyclobenzaprine HCl (Flexeril) 5 mg BIDP PRN PO muscle spasms Last administered on 11/24/18 08:20; Start 11/21/18 at 17:30 Diphenhydramine HCl (Benadryl) 50 mg QHSP PRN PO INSOMNIA Last administered on 11/23/18 20:30; Start 11/21/18 at 17:30 Docusate Sodium (Colace) 200 mg BID PO ; Start 11/21/18 at 21:00 Ferrous Gluconate (Fergon) 324 mg BID PO Last administered on 11/24/18 08:20; Start 11/21/18 at 21:00 Gabapentin (Neurontin) 600 mg TID PO Last administered on 11/24/18 08:20; Start 11/21/18 at 21:00 Hydroxyzine HCl (Atarax) 10 mg BIDP PRN PO ANXIETY/AGITATION Last administered on 11/23/18 22:56; Start 11/22/18 at 13:45 Magnesium Hydroxide (Milk Of Magnesia) 30 ml DAILYPRN PRN PO CONSTIPATION; Start 11/21/18 at 17:30 Nicotine (Nicoderm Cq 21mg) 1 patch DAILY TD ; Start 11/21/18 at 09:00 Nystatin (Mycostatin Powder, Nystop) Apply to abdominal folds BID BID TOP Last administered on 11/23/18at 08:23; Start 11/22/18 at 09:00 Nystatin (Mycostatin Powder, Nystop) Apply to abdominal folds BID BID TOP ; Start 11/22/18 at 23:00; Stop 11/22/18 at 23:00; Status DC Olanzapine (ZyPREXA ZYDIS) 10 mg BIDP PRN PO anxiety/agitation Last administered on 11/23/18 22:56; Start 11/21/18 at 21:00 Omeprazole (PriLOSEC) 40 mg DAILY PO Last administered on 11/24/18 08:20; Start 11/22/18 at 09:00 Paroxetine HCl (PAXil) 60 mg DAILY PO Last administered on 11/24/18 08:20; Start 11/22/18 at 09:00 Allergies Coded Allergies: aripiprazole (Verified Allergy, Severe, anaphylaxis, 10/26/18) buspirone (Verified Allergy, Severe, anaphalaxis, 10/28/18) Sulfa (Sulfonamide Antibiotics) (Verified Allergy, Intermediate, hives, 10/26/18) NSAIDS (Non-Steroidal Anti-Inflamma (Verified Adverse Reaction, Intermediate, BLEEDING/ULCER - CAN NOT TAKE PER DOCTOR'S REQUEST, 10/26/18) methocarbamol (Verified Adverse Reaction, Intermediate, panic attacks, 10/26/18) metoclopramide (Verified Adverse Reaction, Intermediate, panic attacks, 10/26/18) CATERINA CAMARGO MD Nov 24, 2018 08:46
[2018-11-24] MEDS: OLANZapine ORAL DISINTEGRATING TAB 5MG PO PRN ×2 (11:35→20:27)
[2018-11-24] MEDS: ACETAMINOPHEN TAB 650MG DOSE (2X325MG) PO PRN (13:56)
[2018-11-24] MEDS: hydrOXYzine 10 MG TAB PO PRN ×2 (13:56→20:27)
[2018-11-24 18:00] VITALS: BP 128/72
[2018-11-24] MEDS: diphenhydrAMINE 50 MG CAP PO PRN (20:27)
[2018-11-25] MEDS ORDERED: FERR32TA PO (06:50)
[2018-11-25] MEDS ORDERED: PARO20TA3 PO (06:50)
[2018-11-25] MEDS ORDERED: NYAM10003 TOP (06:50)
[2018-11-25 07:13] VITALS: BP 112/69
[2018-11-25] MEDS: NYSTATIN 100,000 UNITS/GM TOPICAL PWD 15 GM TOP SCH ×2 (09:00→21:00)
[2018-11-25] MEDS: NICOTINE 21MG/24HR 1 EA TRANSDERMAL TD SCH (09:00)
[2018-11-25] MEDS: DOCUSATE SODIUM 100 MG CAP PO SCH ×2 (09:00→21:00)
[2018-11-25] MEDS: OMEPRAZOLE 20 MG CAP PO SCH (09:25)
[2018-11-25] MEDS: CETIRIZINE (ZyrTEC) 10 MG TAB PO SCH (09:25)
[2018-11-25] MEDS: FERROUS GLUCONATE 324 MG TAB PO SCH ×2 (09:25→20:27)
[2018-11-25] MEDS: PARoxetine 20 MG TAB PO SCH (09:25)
[2018-11-25] MEDS: GABAPENTIN 300 MG CAP PO SCH ×3 (09:25→20:27)
[2018-11-25] MEDS: CYCLOBENZAPRINE 5MG TABLET PO PRN ×2 (09:26→20:27)
[2018-11-25] MEDS: ACETAMINOPHEN TAB 650MG DOSE (2X325MG) PO PRN ×2 (09:26→20:28)
[2018-11-25] MEDS: OLANZapine ORAL DISINTEGRATING TAB 5MG PO PRN ×2 (13:04→21:16)
[2018-11-25] MEDS: hydrOXYzine 10 MG TAB PO PRN ×2 (13:04→21:16)
--- NOTE | 2018-11-25 14:08 | MHIPNPDOC ---
[facility] Progress Note Progress Note DATE OF SERVICE: 11/25/18 HISTORY: Patient apparently is losing custody of her child due to her recent behaviors. Patient had collapsed after using various medications including hydrocodone VITAL SIGNS: See below. NEW TEST RESULTS: None. CURRENT MEDICATIONS: See below. MENTAL STATUS EXAMINATION: Patient is a 28-year old female, who is requesting Dr. An be called so that she can take an Ativan. Speech: Is normal. Language skills are. Normal. Thought processes including: No disturbance of thought processes, except perhaps denial. Thought content:. No gross disturbance. Abstract reasoning, and computation:, Poor ability to abstract. Description of associations:. No loose associations. Description of abnormal or psychotic thoughts:. No gross abnormalities. Judgment:, Poor. Insight: Poor. Orientation:, Intact 3. Recent and remote memory:. Intact. Attention span and concentration:. Within normal limits. Language: As above. Fund of knowledge: Full. Mood: Sad. Affect:, Tearful. DIAGNOSES: 1. Depression. 2.. Mixed substance abuse. 3., Personality cluster. ASSESSMENT: Patient will be discharged and apparently will be arrested and will have to undergo programs to regain custody of her child MANAGEMENT PLAN:, Discharge planning, begun. TIME SPENT: 35 minutes. Vital Signs Vital Signs Date Time Temp Pulse Resp B/P (MAP) Pulse Ox O2 Delivery O2 Flow Rate FiO2 11/25/18 07:13 97.3 71 14 112/69 (83) 11/21/18 18:00 96 Current Medications Current Medications Acetaminophen (Tylenol Tab) 650 mg Q6HP PRN PO HEADACHE or DISCOMFORT Last administered on 11/25/18at 09:26; Start 11/21/18 at 17:30 Al Hydrox/Mg Hydrox/Simethicone (Mylanta) 30 ml Q4HP PRN PO HEARTBURN/INDIGESTION; Start 11/21/18 at 17:30 Albuterol Sulfate (Proventil, Ventolin Hfa) 2 puff Q4HP PRN INH SHORTNESS OF BREATH; Start 11/21/18 at 17:30 Cetirizine HCl (ZyrTEC) 10 mg DAILY PO Last administered on 11/25/18at 09:25; Start 11/22/18 at 09:00 Cyclobenzaprine HCl (Flexeril) 5 mg BIDP PRN PO muscle spasms Last administered on 11/25/18 09:26; Start 11/21/18 at 17:30 Diphenhydramine HCl (Benadryl) 50 mg QHSP PRN PO INSOMNIA Last administered on 11/24/18 20:27; Start 11/21/18 at 17:30 Docusate Sodium (Colace) 200 mg BID PO ; Start 11/21/18 at 21:00 Ferrous Gluconate (Fergon) 324 mg BID PO Last administered on 11/25/18 09:25; Start 11/21/18 at 21:00 Gabapentin (Neurontin) 600 mg TID PO Last administered on 11/25/18 09:25; Start 11/21/18 at 21:00 Hydroxyzine HCl (Atarax) 10 mg BIDP PRN PO ANXIETY/AGITATION Last administered on 11/25/18 13:04; Start 11/22/18 at 13:45 Magnesium Hydroxide (Milk Of Magnesia) 30 ml DAILYPRN PRN PO CONSTIPATION; Start 11/21/18 at 17:30 Nicotine (Nicoderm Cq 21mg) 1 patch DAILY TD ; Start 11/21/18 at 09:00 Nystatin (Mycostatin Powder, Nystop) Apply to abdominal folds BID BID TOP Last administered on 11/23/18at 08:23; Start 11/22/18 at 09:00 Nystatin (Mycostatin Powder, Nystop) Apply to abdominal folds BID BID TOP ; Start 11/22/18 at 23:00; Stop 11/22/18 at 23:00; Status DC Olanzapine (ZyPREXA ZYDIS) 10 mg BIDP PRN PO anxiety/agitation Last administered on 11/25/18 13:04; Start 11/21/18 at 21:00 Omeprazole (PriLOSEC) 40 mg DAILY PO Last administered on 11/25/18 09:25; Start 11/22/18 at 09:00 Paroxetine HCl (PAXil) 60 mg DAILY PO Last administered on 11/25/18 09:25; Start 11/22/18 at 09:00 Allergies Coded Allergies: aripiprazole (Verified Allergy, Severe, anaphylaxis, 10/26/18) buspirone (Verified Allergy, Severe, anaphalaxis, 10/28/18) Sulfa (Sulfonamide Antibiotics) (Verified Allergy, Intermediate, hives, 10/26/18) NSAIDS (Non-Steroidal Anti-Inflamma (Verified Adverse Reaction, Intermediate, BLEEDING/ULCER - CAN NOT TAKE PER DOCTOR'S REQUEST, 10/26/18) methocarbamol (Verified Adverse Reaction, Intermediate, panic attacks, 10/26/18) metoclopramide (Verified Adverse Reaction, Intermediate, panic attacks, 10/26/18) CATERINA CAMARGO MD Nov 25, 2018 14:08
[2018-11-25 18:00] VITALS: BP 171/79
[2018-11-25] MEDS: diphenhydrAMINE 50 MG CAP PO PRN (20:27)
[2018-11-25] MEDS ORDERED: zolPIDEM TARTRATE 5 MG TAB PO ONE (21:45)
[2018-11-26 07:00] VITALS: BP 132/90
--- NOTE | 2018-11-26 08:12 | MHDSPDOC ---
[facility] Discharge Summary Discharge Summary DATE OF ADMISSION: Nov 21, 2018 at 17:50 DATE OF DISCHARGE: Nov DISCHARGE DIAGNOSES: 1. Depression. 2.. Mixed substance abuse. REASON FOR ADMISSION:. Patient overdosed on numerous medications including recent hydrocodone. Her 5-year-old called the police and she has temporarily lost custody of her child. CONSULTANTS INVOLVED: none TREATMENT AND PROGRESS ON THE UNIT : Initially sedated and uncooperative. Patient was frightened of losing her child and angry at her child's father who has gained custody. Patient initially took little responsibility for her actions. She may have further legal difficulties post discharge. On discharge, her mood was improved and patient agreed for the need to minimize her medications and achieve sobriety HOSPITAL COURSE: Initially irritable, uncooperative and angry. Patient became cooperative and agreed to treatment plan. Despite her resentment that her child now is under the custody of his father. Patient continues to be seeking medication and recommendation to outpatient physicians that her medication be significantly minimized DISCHARGE ASSESSMENT:, Personality disorder plus mixed substance abuse and depression. We will need consistent outpatient follow-up and outpatient treatment should demonstrate minimized use of any medications except those absolutely necessary MENTAL STATUS EXAMINATION ON DISCHARGE: Patient is a 28-year old female, who is being discharged and having lost custody of her child to to overuse of medication and accusations of negligence. Speech is normal. Language skills are, intact. Thought processes including: No gross abnormalities. Thought content:. No gross abnormalities. Abstract reasoning, and computation:, Able to abstract and compute. Description of associations:. No loose associations. Description of abnormal or psychotic thoughts:. No psychotic thought noted at this time. Judgment:, Poor. Insight:, Improving. Orientation to, intact 3. Recent and remote memory:. Intact. Attention span and concentration: Intact. Language: As above. Fund of knowledge:, Full. Mood:, Improved. Affect:, Congruent. MEDICATIONS ON DISCHARGE: -. Paroxetine for depression . PLAN/FOLLOWUP ARRANGEMENTS: Outpatient follow-up arranged. Patient will be returned home. CPS also following The amount of time spent in the coordination of care for this patient was approximately 35 minutes. Vital Signs/I&Os Vital Signs Date Time Temp Pulse Resp B/P (MAP) Pulse Ox O2 Delivery O2 Flow Rate FiO2 11/26/18 07:00 98.0 63 14 132/90 (104) 11/21/18 18:00 96 Medications Scheduled Cetirizine HCl (Cetirizine HCl) 10 Mg Tablet, 10 MG PO DAILY, (Reported) Ferrous Gluconate (Ferrous Gluconate) 324 Mg Tablet, 324 MG PO BID for Anemia f or 10 Days, #20 Gabapentin (Gabapentin) 600 Mg Tab, 600 MG PO TID, (Reported) Nystatin (Nyamyc) 15 Gm Powder, 1 DOSE TOP BID for Fungal Infection for 10 Days, #20 Omeprazole (Omeprazole) 40 Mg Cap, 40 MG PO DAILY, (Reported) Paroxetine HCl (Paroxetine HCl) 20 Mg Tablet, 60 MG PO DAILY for Depression, #30 Scheduled PRN Albuterol Sulfate (Ventolin Hfa) 108 Mcg/Act Aer, 2 PUFF INH Q4H PRN for SOB/WHEEZING, (Reported) Allergies Coded Allergies: aripiprazole (Verified Allergy, Severe, anaphylaxis, 10/26/18) buspirone (Verified Allergy, Severe, anaphalaxis, 10/28/18) Sulfa (Sulfonamide Antibiotics) (Verified Allergy, Intermediate, hives, 10/26/18) NSAIDS (Non-Steroidal Anti-Inflamma (Verified Adverse Reaction, Intermediate, BLEEDING/ULCER - CAN NOT TAKE PER DOCTOR'S REQUEST, 10/26/18) methocarbamol (Verified Adverse Reaction, Intermediate, panic attacks, 10/26/18) metoclopramide (Verified Adverse Reaction, Intermediate, panic attacks, 10/26/18) CATERINA CAMARGO MD Nov 26, 2018 08:12
[2018-11-26] MEDS: DOCUSATE SODIUM 100 MG CAP PO SCH (08:13)
[2018-11-26] MEDS: NYSTATIN 100,000 UNITS/GM TOPICAL PWD 15 GM TOP SCH (08:14)
[2018-11-26] MEDS: NICOTINE 21MG/24HR 1 EA TRANSDERMAL TD SCH (08:14)
[2018-11-26] MEDS: GABAPENTIN 300 MG CAP PO SCH (08:16)
[2018-11-26] MEDS: FERROUS GLUCONATE 324 MG TAB PO SCH (08:16)
[2018-11-26] MEDS: CETIRIZINE (ZyrTEC) 10 MG TAB PO SCH (08:16)
[2018-11-26] MEDS: OMEPRAZOLE 20 MG CAP PO SCH (08:16)
[2018-11-26] MEDS: PARoxetine 20 MG TAB PO SCH (08:16)
== END 2018-11-26 08:57 | disposition home or self-care (01) | DRG 754 ==
LOC: M PSY 17:50
PROVIDERS: ADMIT Psychiatry & Neurology Psychiatry; ATTEND Psychiatry & Neurology Child & Adolescent Psychiatry
DX: F32.9 Major depressive disorder, single episode, unspecified (principal); D50.9 Iron deficiency anemia, unspecified; Z79.899 Other long term (current) drug therapy; Z88.6 Allergy status to analgesic agent; Z88.8 Allergy status to other drugs, medicaments and biological substances; M79.7 Fibromyalgia; F41.9 Anxiety disorder, unspecified; J45.909 Unspecified asthma, uncomplicated; K21.9 Gastro-esophageal reflux disease without esophagitis; G43.909 Migraine, unspecified, not intractable, without status migrainosus; G89.29 Other chronic pain

== ENCOUNTER 2018-12-28 19:48 | Inpatient (IN) | payer MEDICAID, OTHER ==
[~2018-12-28] VITALS: Ht 170.2 cm; Wt 140.6 kg
[~2018-12-28 19:48] MED LIST changes: +FERR32TA PO; +NYAM10003 TOP
[2018-12-28 20:18] LABS: BASO # 0.1 10^3/uL (0.0-0.2); BASO % 0.4 % (0.0-1.0); EOS # 0.3 10^3/uL (0.0-0.50); EOS % 2.4 % (0.0-3.0); HEMATOCRIT 37.4 % (36.0-47.0); HEMOGLOBIN 11.5 g/dl (12.0-15.5); LYMPH % 26.1 % (24.0-44.0); MEAN CORPUSCULAR HEMOGLOBIN 24.9 pg (27.0-33.0); MEAN CORPUSCULAR HGB CONC 30.7 g/dl (32.0-36.5); MONO # 0.4 10^3/uL (0.0-0.8); MONO % 3.7 % (0.0-5.0); NEUTROPHILS # 7.8 10^3/uL (1.8-7.7); NEUTROPHILS % 66.6 % (36.0-66.0); PLATELET COUNT, AUTOMATED 381 10^3/uL (150-450); RED BLOOD COUNT 4.62 10^6/uL (4.00-5.40); WHITE BLOOD COUNT 11.7 10^3/uL (4.0-10.0)
[2018-12-28] MEDS ORDERED: NALOXONE INJ 2 MG/2 ML SYRINGE (J2310) IV STA (20:20)
[2018-12-28] MEDS ORDERED: OLAN5TAB PO (20:25)
[2018-12-28] MEDS ORDERED: VYVA20CA PO (20:25)
[2018-12-28] MEDS ORDERED: BANO25TA PO (20:25)
[2018-12-28] MEDS ORDERED: ZOLP10TA2 PO (20:25)
[2018-12-28] MEDS ORDERED: LORA2TAB9 PO (20:25)
[2018-12-28] MEDS ORDERED: SOMA350T PO (20:25)
[2018-12-28 21:00] LABS: HCG, SERUM QUALITATIVE NEGATIVE (NEGATIVE)
[2018-12-28 21:10] LABS: ACETAMINOPHEN LEVEL < 2.0 UG/ML (10.0-30.0); ALBUMIN 2.9 GM/DL (3.2-5.2); ALT/SGPT 23 U/L (12-78); BILIRUBIN,DIRECT < 0.1 MG/DL (0.0-0.2); BILIRUBIN,TOTAL 0.3 MG/DL (0.2-1.0); BLOOD UREA NITROGEN 9 MG/DL (7-18); CALCIUM LEVEL 8.6 MG/DL (8.5-10.1); CARBON DIOXIDE LEVEL 27 MEQ/L (21-32); CHLORIDE LEVEL 106 MEQ/L (98-107); CPK CREATINE PHOSPHOKINASE 56 U/L (26-192); CREATININE FOR GFR 0.73 MG/DL (0.55-1.30); ETHYL ALCOHOL (ETHANOL) < 0.003 % (0.000-0.010); GLOMERULAR FILTRATION RATE > 60.0 (>60); GLUCOSE, FASTING 71 MG/DL (70-100); POTASSIUM SERUM 4.3 MEQ/L (3.5-5.1); SALICYLATE LEVEL < 1.7 MG/DL (5.0-30.0); SODIUM LEVEL 140 MEQ/L (136-145)
[2018-12-28 22:08] LABS: AMPHETAMINES LEVEL URINE NEGATIVE (NEGATIVE); BARBITURATES URINE NEGATIVE (NEGATIVE); BENZODIAZEPINES URINE NEGATIVE (NEGATIVE); CANNABINOIDS URINE NEGATIVE (NEGATIVE); COCAINE METABOLITE URINE NEGATIVE (NEGATIVE); METHADONE URINE NEGATIVE (NEGATIVE); OPIATES URINE NEGATIVE (NEGATIVE); PHENCYCLIDINE URINE NEGATIVE (NEGATIVE)
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
[2018-12-29] MEDS ORDERED: PARO20TA3 PO (05:50)
[2018-12-29] MEDS ORDERED: PARO40TA2 PO (05:50)
[2018-12-29] MEDS ORDERED: SOMA350T PO (05:50)
[2018-12-29] MEDS ORDERED: HYDR-643 PO (05:50)
[2018-12-29] MEDS ORDERED: LORazepam 2 MG TAB PO ONE (08:15)
--- NOTE | 2018-12-29 09:09 | ECGEPIP ---
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
[2018-12-29] MEDS ORDERED: MAALOX 30 ML SUSP *UDC PO PRN (14:15)
[2018-12-29] MEDS ORDERED: traZODone 50 MG TAB PO PRN (14:15)
[2018-12-29] MEDS ORDERED: MOM 30ML SUSPENSION UDC PO PRN (14:15)
[2018-12-29 15:28] VITALS: BP 113/77
[2018-12-29] MEDS ORDERED: hydrOXYzine 10 MG TAB PO PRN (16:45)
[2018-12-29] MEDS ORDERED: diphenhydrAMINE 25 MG CAP PO PRN (16:45)
[2018-12-29] MEDS ORDERED: LORazepam 0.5 MG TAB PO PRN (16:45)
[2018-12-29] MEDS: CARISOPRODOL 350 MG TAB PO PRN (17:15)
[2018-12-29] MEDS: ACETAMINOPHEN TAB 650MG DOSE (2X325MG) PO PRN (17:16)
[2018-12-29] MEDS: GABAPENTIN 300 MG CAP PO SCH ×2 (17:17→20:14)
[2018-12-29] MEDS: LORazepam 2 MG TAB PO PRN (18:51)
[2018-12-29] MEDS: OMEPRAZOLE 20 MG CAP PO SCH (20:14)
[2018-12-29] MEDS ORDERED: zolPIDEM TARTRATE 5 MG TAB PO SCH (21:00)
[2018-12-30] MEDS: CARISOPRODOL 350 MG TAB PO PRN (06:28)
[2018-12-30] MEDS: ACETAMINOPHEN TAB 650MG DOSE (2X325MG) PO PRN (06:29)
[2018-12-30 06:49] VITALS: BP 134/63
[2018-12-30] MEDS: LORazepam 2 MG TAB PO PRN (07:56)
[2018-12-30] MEDS: OMEPRAZOLE 20 MG CAP PO SCH (07:56)
[2018-12-30] MEDS: GABAPENTIN 300 MG CAP PO SCH (07:56)
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
[2018-12-30] MEDS ORDERED: CETIRIZINE (ZyrTEC) 10 MG TAB PO SCH (09:00)
[2018-12-30] MEDS ORDERED: PARoxetine 20 MG TAB PO SCH (09:00)
--- NOTE | 2018-12-31 06:30 | MHDSPDOC ---
[facility] Discharge Summary Discharge Summary DATE OF ADMISSION: Dec 29, 2018 at 14:06 DATE OF DISCHARGE: Dec 30, 2018 at 11:30 Discharge Katie Busby Age 28 Female Date of : 1990 Date of Service: 12/30/2018 Diagnoses Unspecified depressive disorder. Tobacco use disorder, severe. History of Present Illness The patient a 28 year old woman with a recent inpatient stay was brought to [facility] after reportedly being found lethargic after what was reported to [employer] as an intentional overdose. However, when the patient arrives she states this was not an overdose and that she was unsure as to how it was construed that way. The patient did demonstrate reported symptoms of depression with hopelessness, loss of interest, fatigue, concentration problems of which she freely admitted to. She reportedly had her obid-kzaa-qzw son with her and had found her after taking an overdose, and has been removed from her custody since that period. When the patient was met with, she continues to deny any suicidal behavior. It's unclear the situation revolving it however, she's consistently denied any suicidal statements over her observation. She reports that she has had her depression, but she is currently waiting to see a medication provider at [facility]. She describes that she wishes to go home and she is not suicidal. Consultants Involved Hospitalist/PCP screening Treatment and Progress On The Unit Patient was admitted for a short time on the unit. She requested discharge and during her period of observation, she did not demonstrate any suicidal ideation or concerning symptoms or signs. Thus, she no longer met inpatient criteria for an involuntary stay. She declined a offer of a voluntary stay on the unit. She described that she was unclear as to why she was admitted noting that she was feeling fairly lethargic and "off" when she was brought in, but was reportedly fully aware. She describes that she is currently waiting to see a med provider at [facility], however, primary care is currently prescribing her medications. Review of her medications indicate a fairly confusing and complex medication list. She was resumed on her home meds, which she appear to tolerate and was subsequently triaged for discharge. She was able to go to groups and was social on the unit. Discharge Assessment The patient, a 28-year-old woman with a history of anxiety and depression that is likely trauma-related presents after a reported suicidal overdose. However, it appears that collateral information and the patient's report as well as observation on the unit suggests that this was likely a medication interaction. She is on a fairly high dose of serotonin based drugs and was recently started on a psychostimulant. This is likely a problem as it can create multiple medication interactions of which she has reported intermittent compliance that likely makes the regimen not useful Mental Status Examination General: Well dressed with good hygiene Speech: Spontaneous and fluid Thought processes: Linear and logical MSK: Smooth and coordinated gait, no signs of tremors or involuntary orofacial movements Thought content: Future orientated Abstract reasoning, and computation: Intact Description of associations: Intact Description of abnormal or psychotic thoughts: Denies any suicidal or homicidal ideation. Denies any auditory or visual hallucinations. Does not appear to be responding to internal stimuli. Does not appear to be endorsing any bizarre or paranoid ideation. Judgment: fair Insight: fair Orientation: Alert and orientated 3 Cognition: Grossly normal Recent and remote memory: Intact Attention span and concentration: Intact Fund of knowledge: Adequate Mood: "okay" Affect: Euthymic with a full range Follow Up The social work team worked during the predischarge meeting in order to evaluate for further issues of lethality address them fully before discharge. They worked on safety planning with the patient's family members in order to ensure that the patient will have a safe and effective discharge. The patient's home medications were not changed on this visit and are as below. The patient requested a refill of her Vyvanse of which this provider declined stating that she would need to follow up with her primary care who is prescribing it. This provider is concerned about her medication regimen and its complexity as well as multiple blackbox interactions were related to the patient. She described that she wished to continue on them. It was suggested to her that this could be a problem and even potentially lethal. She did demostrate some concerning medication seeking behaviors by observation and her grandmother's reports, her medications regiment should be re-evaluated as an outpatient as she was not amenable to having it changed to remove controlled substances that are likely of little use to her current psychiatric health. Time Spent The amount of time spent in the coordination of care for this patient was approximately 30 minutes. Vital Signs/I&Os Vital Signs Date Time Temp Pulse Resp B/P (MAP) Pulse Ox O2 Delivery O2 Flow Rate FiO2 12/30/18 06:49 97.3 87 14 134/63 (86) 12/29/18 15:28 97 12/29/18 13:31 Room Air Medications Scheduled Cetirizine HCl (Cetirizine HCl) 10 Mg Tablet, 10 MG PO DAILY, (Reported) Gabapentin (Gabapentin) 600 Mg Tab, 600 MG PO TID, (Reported) Lisdexamfetamine Dimesylate (Vyvanse) 20 Mg Capsule, 20 MG PO DAILY, (Reported) Omeprazole (Omeprazole) 40 Mg Cap, 40 MG PO DAILY, (Reported) Paroxetine HCl (Paroxetine HCl) 20 Mg Tablet, 20 MG PO DAILY, (Reported) TAKES WITH 40MG FOR 60MG TOTAL Paroxetine HCl (Paroxetine HCl) 40 Mg Tablet, 40 MG PO DAILY, (Reported) TAKES WITH 20MG FOR 60MG TOTAL Scheduled PRN Albuterol Sulfate (Ventolin Hfa) 108 Mcg/Act Aer, 2 PUFF INH Q4H PRN for SHORTNESS OF BREATH, (Reported) Carisoprodol (Soma) 350 Mg Tablet, 350 MG PO TID PRN for MUSCLE SPASMS, (Reported) Diphenhydramine HCl (Banophen) 25 Mg Tablet, 25 MG PO DAILY PRN for ITCHING, (Reported) Hydroxyzine HCl (Hydroxyzine HCl) 10 Mg Tablet, 10 MG PO Q6H PRN for ANXIETY/AGITATION, (Reported) Lorazepam (Lorazepam) 2 Mg Tablet, 2 MG PO BID PRN for ANXIETY, (Reported) Olanzapine (Olanzapine) 5 Mg Tablet, 5 MG PO DAILY PRN for ANXIETY/AGITATION, (Reported) Zolpidem Tartrate (Zolpidem Tartrate) 10 Mg Tablet, 10 MG PO QHS PRN for SLEEP, (Reported) Allergies Coded Allergies: aripiprazole (Verified Allergy, Severe, anaphylaxis, 10/26/18) buspirone (Verified Allergy, Severe, anaphalaxis, 10/28/18) Sulfa (Sulfonamide Antibiotics) (Verified Allergy, Intermediate, hives, 10/26/18) NSAIDS (Non-Steroidal Anti-Inflamma (Verified Adverse Reaction, Intermediate, BLEEDING/ULCER - CAN NOT TAKE PER DOCTOR'S REQUEST, 10/26/18) methocarbamol (Verified Adverse Reaction, Intermediate, panic attacks, 10/26/18) metoclopramide (Verified Adverse Reaction, Intermediate, panic attacks, 10/26/18) MARY MABRY DO Dec 31, 2018 06:30
== END 2018-12-30 11:30 | disposition home or self-care (01) | DRG 754 ==
LOC: EDSEX 19:48 → M ED 19:48 → EDBD 19:48 → M ED INP 12-29 14:06 → M PSY 12-29 15:20
PROVIDERS: ADMIT Psychiatry & Neurology Addiction Medicine; ATTEND Psychiatry & Neurology Addiction Medicine
DX: F32.9 Major depressive disorder, single episode, unspecified (principal); R53.83 Other fatigue; T50.995A Adverse effect of other drugs, medicaments and biological substances, initial encounter; G89.29 Other chronic pain; Z81.1 Family history of alcohol abuse and dependence; Z81.3 Family history of other psychoactive substance abuse and dependence; F17.210 Nicotine dependence, cigarettes, uncomplicated; Z79.899 Other long term (current) drug therapy; Z88.2 Allergy status to sulfonamides; Z88.6 Allergy status to analgesic agent; Z88.8 Allergy status to other drugs, medicaments and biological substances

== ENCOUNTER 2019-01-09 22:11 | Emergency (ER) | payer MEDICAID, OTHER ==
[~2019-01-09] VITALS: Ht 170.2 cm; Wt 136.4 kg
[~2019-01-09 22:11] MED LIST changes: -DIPH25CA PO; +DIPH25CA32 PO; +HYDR-643 PO; +LORA2TAB9 PO; +OLAN5TAB PO; +ZOLP10TA2 PO
[2019-01-09 22:19] VITALS: BP 96/57
[2019-01-09] MEDS ORDERED: PROMETHAZINE INJ 25 MG/ML VIAL (J2550) IV ONE (22:30)
[2019-01-09] MEDS ORDERED: PANTOPRAZOLE 40MG INJ (PROTONIX) (C9113) IV ONE (22:30)
[2019-01-09] MEDS ORDERED: NS 1,000 ML IV ONE (22:30)
[2019-01-09 23:08] LABS: BASO % 0.4 % (0.0-1.0); EOS # 0.3 10^3/uL (0.0-0.50); HEMATOCRIT 37.1 % (36.0-47.0); HEMOGLOBIN 11.3 g/dl (12.0-15.5); LYMPH # 2.5 10^3/uL (1.5-6.5); LYMPH % 23.8 % (24.0-44.0); MEAN CORPUSCULAR HEMOGLOBIN 24.7 pg (27.0-33.0); MEAN CORPUSCULAR HGB CONC 30.5 g/dl (32.0-36.5); MEAN CORPUSCULAR VOLUME 81.2 fl (80.0-96.0); MONO # 0.5 10^3/uL (0.0-0.8); MONO % 4.5 % (0.0-5.0); NEUTROPHILS # 7.2 10^3/uL (1.8-7.7); NEUTROPHILS % 67.9 % (36.0-66.0); PLATELET COUNT, AUTOMATED 381 10^3/uL (150-450); RED BLOOD COUNT 4.57 10^6/uL (4.00-5.40); WHITE BLOOD COUNT 10.6 10^3/uL (4.0-10.0)
[2019-01-09 23:20] LABS: INR 1.01
[2019-01-09] MEDS ORDERED: GI COCKTAIL 50ML BTL(HYOSCYAMINE/MAALOX/LIDOCAINE VISCOUS)(1:3:1) PO ONE (23:30)
[2019-01-09 23:36] LABS: ALBUMIN 3.1 GM/DL (3.2-5.2); ALT/SGPT 39 U/L (12-78); BILIRUBIN,DIRECT < 0.1 MG/DL (0.0-0.2); BILIRUBIN,TOTAL 0.1 MG/DL (0.2-1.0); BLOOD UREA NITROGEN 5 MG/DL (7-18); CALCIUM LEVEL 8.7 MG/DL (8.5-10.1); CARBON DIOXIDE LEVEL 21 MEQ/L (21-32); CHLORIDE LEVEL 111 MEQ/L (98-107); CREATININE FOR GFR 0.74 MG/DL (0.55-1.30); GLOMERULAR FILTRATION RATE > 60.0 (>60); GLUCOSE, FASTING 148 MG/DL (70-100); LIPASE 168 U/L (73-393); POTASSIUM SERUM 5.1 MEQ/L (3.5-5.1); SODIUM LEVEL 141 MEQ/L (136-145); TOTAL PROTEIN 7.1 GM/DL (6.4-8.2)
[2019-01-09] MEDS ORDERED: diphenhydrAMINE INJ 50MG/ML VIAL (J1200) IV ONE (23:45)
[2019-01-09] MEDS ORDERED: ZOFR4TAB16 PO (23:47)
--- NOTE | 2019-01-12 17:08 | REP ---
Acute abdominal series five views including supine AP chest, one-view and supine AP abdomen three views and single decubitus view of the abdomen. Supine AP chest: Comparison is the PA and lateral chest dated 06/01/2018. The lung menendez are clear. Cardiac size is normal. The [place], mediastinum, skeletal structures are unremarkable. Supine positioning precludes evaluation for free subdiaphragmatic air. Impression: Negative supine AP chest. Abdomen, multiple supine AP views: Comparison is 04/10/2016. There are right upper quadrant surgical clips. This is unchanged. The bowel gas pattern is normal. There are no calcifications. Impression: Normal bowel gas pattern. Electronically Signed by Christiano Cool MD 01/10/2019 07:19 A
== END 2019-01-10 00:03 | disposition home or self-care (01) ==
LOC: M ED 22:11
DX: R10.9 Unspecified abdominal pain (principal); R11.10 Vomiting, unspecified; M79.7 Fibromyalgia; K21.9 Gastro-esophageal reflux disease without esophagitis; G43.909 Migraine, unspecified, not intractable, without status migrainosus; Z72.0 Tobacco use; Z79.899 Other long term (current) drug therapy; Z88.6 Allergy status to analgesic agent; Z88.2 Allergy status to sulfonamides; Z88.8 Allergy status to other drugs, medicaments and biological substances
CPT/HCPCS: 74021; 80048; 80076; 83690; 85025; 85610; 96374; 96375; 99284; C9113; J1200

== ENCOUNTER 2019-01-15 15:46 | Emergency (ER) | payer OTHER ==
[~2019-01-15] VITALS: Ht 170.2 cm; Wt 143.1 kg
[~2019-01-15 15:46] MED LIST changes: -ALL10TAB28 PO; +ALL10TAB29 PO; +CLON0.5T2 PO; -CLON0.5T8 PO; +LORA2TAB14 PO; -LORA2TAB9 PO; -OMEP40CA2 PO; +OMEP40CA97 PO
[2019-01-15] MEDS ORDERED: LORazepam 2 MG/ML VIAL (J2060) IM STA (16:16)
[2019-01-15] MEDS ORDERED: SOMA350T PO (17:02)
[2019-01-15] MEDS ORDERED: ACETAMINOPHEN 500 MG TAB PO ONE (17:15)
[2019-01-15 17:22] VITALS: BP 122/72
== END 2019-01-15 17:39 | disposition home or self-care (01) ==
LOC: M ED 15:46
DX: F41.9 Anxiety disorder, unspecified (principal); F41.0 Panic disorder [episodic paroxysmal anxiety]; J45.909 Unspecified asthma, uncomplicated; F32.9 Major depressive disorder, single episode, unspecified; F43.10 Post-traumatic stress disorder, unspecified; G43.909 Migraine, unspecified, not intractable, without status migrainosus; G89.29 Other chronic pain; M54.9 Dorsalgia, unspecified; M79.7 Fibromyalgia; Z72.0 Tobacco use; Z79.899 Other long term (current) drug therapy; Z88.6 Allergy status to analgesic agent; Z88.2 Allergy status to sulfonamides; Z88.8 Allergy status to other drugs, medicaments and biological substances
CPT/HCPCS: 96372; 99284; J2060

== ENCOUNTER → 2019-01-17 | Outpatient (REF) | payer OTHER ==
[~2019-01-17] MED LIST changes: +ALL10TAB28 PO; -ALL10TAB29 PO; -CLON0.5T2 PO; +CLON0.5T8 PO; +DIPH25CA PO; -DIPH25CA32 PO; -LORA2TAB14 PO; +LORA2TAB9 PO; +OMEP40CA2 PO; -OMEP40CA97 PO
[2019-01-17 16:45] LABS: BLOOD UREA NITROGEN 7 MG/DL (7-18); CALCIUM LEVEL 8.9 MG/DL (8.5-10.1); CARBON DIOXIDE LEVEL 28 MEQ/L (21-32); CHLORIDE LEVEL 108 MEQ/L (98-107); CREATININE FOR GFR 0.68 MG/DL (0.55-1.30); GLOMERULAR FILTRATION RATE > 60.0 (>60); GLUCOSE, FASTING 106 MG/DL (70-100); POTASSIUM SERUM 3.8 MEQ/L (3.5-5.1); SODIUM LEVEL 142 MEQ/L (136-145)
[2019-01-17 16:46] LABS: VITAMIN B12 LEVEL 291 PG/ML (247-911)
[2019-01-17 16:47] LABS: FOLATE 4.9 NG/ML (>5.4)
[2019-01-17 17:23] LABS: HEMOGLOBIN A1c 5.5 %
[2019-01-17 17:37] LABS: BASO % 0.2 % (0.0-1.0); EOS # 0.3 10^3/uL (0.0-0.50); EOS % 3.4 % (0.0-3.0); HEMATOCRIT 37.7 % (36.0-47.0); HEMOGLOBIN 11.3 g/dl (12.0-15.5); LYMPH # 2.4 10^3/uL (1.5-6.5); MEAN CORPUSCULAR HEMOGLOBIN 24.6 pg (27.0-33.0); MONO # 0.3 10^3/uL (0.0-0.8); NEUTROPHILS # 5.2 10^3/uL (1.8-7.7); PLATELET COUNT, AUTOMATED 392 10^3/uL (150-450); WHITE BLOOD COUNT 8.2 10^3/uL (4.0-10.0)
[2019-01-20 14:51] LABS: HOMOCYST(E)INE SERUM 6.2 umol/L (0.0-15.0)
== END ==
LOC: M SFHCPLAZ 14:40
PROVIDERS: ATTEND Family Medicine
DX: Z79.899 Other long term (current) drug therapy (principal); G62.9 Polyneuropathy, unspecified

== ENCOUNTER 2019-01-29 09:24 | Emergency (ER) | payer OTHER ==
[~2019-01-29] VITALS: Ht 170.2 cm; Wt 147.5 kg
[2019-01-29 09:24] VITALS: BP 130/74
[~2019-01-29 09:24] MED LIST changes: -ALL10TAB28 PO; +ALL10TAB29 PO; +CLON0.5T2 PO; -CLON0.5T8 PO; -DIPH25CA PO; +DIPH25CA32 PO; +LORA2TAB14 PO; -LORA2TAB9 PO; -OMEP40CA2 PO; +OMEP40CA97 PO
[2019-01-29] MEDS ORDERED: TIZA2TA PO (09:37)
[2019-01-29] MEDS ORDERED: VYVA20CA (09:37)
[2019-01-29] MEDS ORDERED: SOMA350T PO (10:15)
== END 2019-01-29 10:24 | disposition home or self-care (01) ==
LOC: M ED 09:24
DX: Z76.0 Encounter for issue of repeat prescription (principal); G89.29 Other chronic pain; M54.5 Low back pain; Z72.0 Tobacco use; G43.909 Migraine, unspecified, not intractable, without status migrainosus; M79.7 Fibromyalgia; J45.909 Unspecified asthma, uncomplicated; K21.9 Gastro-esophageal reflux disease without esophagitis; Z87.440 Personal history of urinary (tract) infections; Z87.442 Personal history of urinary calculi; E28.2 Polycystic ovarian syndrome; N80.0 Endometriosis of uterus; D64.9 Anemia, unspecified; F41.9 Anxiety disorder, unspecified; F32.9 Major depressive disorder, single episode, unspecified; F43.10 Post-traumatic stress disorder, unspecified; F60.3 Borderline personality disorder; Z86.14 Personal history of Methicillin resistant Staphylococcus aureus infection; Z79.899 Other long term (current) drug therapy; Z88.6 Allergy status to analgesic agent; Z88.2 Allergy status to sulfonamides; Z88.8 Allergy status to other drugs, medicaments and biological substances

== ENCOUNTER 2019-02-05 08:33 | Emergency (ER) | payer OTHER ==
[~2019-02-05] VITALS: Ht 170.2 cm; Wt 146.8 kg
[~2019-02-05 08:33] MED LIST changes: +ALL10TAB28 PO; -ALL10TAB29 PO; -CLON0.5T2 PO; +CLON0.5T8 PO; -LORA2TAB14 PO; +LORA2TAB9 PO; +OMEP40CA2 PO; -OMEP40CA97 PO; +TIZA2TA PO; +VYVA20CA
[2019-02-05 08:34] VITALS: BP 150/78
== END 2019-02-05 09:47 | disposition left against medical advice (07) ==
LOC: M ED 08:33
DX: F41.9 Anxiety disorder, unspecified (principal); Z72.89 Other problems related to lifestyle; F19.10 Other psychoactive substance abuse, uncomplicated; F32.9 Major depressive disorder, single episode, unspecified; E66.9 Obesity, unspecified; F17.210 Nicotine dependence, cigarettes, uncomplicated; Z79.899 Other long term (current) drug therapy; Z88.6 Allergy status to analgesic agent; Z88.2 Allergy status to sulfonamides; Z88.8 Allergy status to other drugs, medicaments and biological substances

== ENCOUNTER 2019-02-19 11:50 | Emergency (ER) | payer OTHER ==
[~2019-02-19] VITALS: Ht 170.2 cm; Wt 147.6 kg
[~2019-02-19 11:50] MED LIST changes: -ALL10TAB28 PO; +ALL10TAB29 PO; +CLON0.5T2 PO; -CLON0.5T8 PO; +LORA2TAB14 PO; -LORA2TAB9 PO; -OMEP40CA2 PO; +OMEP40CA97 PO
[2019-02-19] MEDS ORDERED: HYDR-643 PO (12:05)
[2019-02-19] MEDS ORDERED: LORazepam 2 MG TAB PO STA (13:10)
[2019-02-19] MEDS ORDERED: ATIV1TAB7 PO (14:22)
[2019-02-19] MEDS ORDERED: AMBI10TA PO (14:22)
[2019-02-19 14:36] VITALS: BP 137/86
== END 2019-02-19 14:43 | disposition home or self-care (01) ==
LOC: M ED 11:50
DX: F41.9 Anxiety disorder, unspecified (principal); J45.909 Unspecified asthma, uncomplicated; K21.9 Gastro-esophageal reflux disease without esophagitis; Z87.442 Personal history of urinary calculi; F43.10 Post-traumatic stress disorder, unspecified; Z88.8 Allergy status to other drugs, medicaments and biological substances; Z88.2 Allergy status to sulfonamides; Z79.899 Other long term (current) drug therapy

== ENCOUNTER → 2019-02-21 | Outpatient (CLI) | payer OTHER ==
[~2019-02-21] MED LIST changes: +ATIV1TAB7 PO; -CLON0.5T2 PO; +CLON0.5T8 PO; -LORA2TAB14 PO; +LORA2TAB9 PO; +OMEP40CA2 PO; -OMEP40CA97 PO
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
== END ==
LOC: M PAIN 15:30
PROVIDERS: ATTEND Anesthesiology
DX: M79.18 Myalgia, other site (principal); M47.812 Spondylosis without myelopathy or radiculopathy, cervical region; G43.909 Migraine, unspecified, not intractable, without status migrainosus; F43.10 Post-traumatic stress disorder, unspecified; M79.7 Fibromyalgia; F90.9 Attention-deficit hyperactivity disorder, unspecified type; F34.1 Dysthymic disorder; K21.9 Gastro-esophageal reflux disease without esophagitis; J45.909 Unspecified asthma, uncomplicated; A60.09 Herpesviral infection of other urogenital tract; F17.210 Nicotine dependence, cigarettes, uncomplicated; Z90.49 Acquired absence of other specified parts of digestive tract; Z79.899 Other long term (current) drug therapy; Z88.2 Allergy status to sulfonamides; Z88.8 Allergy status to other drugs, medicaments and biological substances

== ENCOUNTER → 2019-02-22 | Outpatient (REF) | payer OTHER ==
[2019-02-22 12:34] LABS: APPEARANCE, URINE CLEAR (CLEAR); BACTERIA, URINE AUTO 1+ (NEGATIVE); BILIRUBIN, URINE AUTO NEGATIVE (NEGATIVE); BLOOD, URINE BLOOD NEGATIVE (NEGATIVE); COLOR, URINE YELLOW (YELLOW); GLUCOSE, URINE (UA) AUTO NEGATIVE (NEGATIVE); KETONE, URINE AUTO NEGATIVE (NEGATIVE); LEUKOCYTE ESTERASE, URINE AUTO NEGATIVE (NEGATIVE); MUCUS, URINE SMALL (NEGATIVE); NITRITE, URINE AUTO NEGATIVE (NEGATIVE); PROTEIN, URINE AUTO NEGATIVE (NEGATIVE); RBC, URINE AUTO 0 /HPF (0-3); SPECIFIC GRAVITY URINE AUTO 1.016 (1.002-1.035); SQUAMOUS EPITHELIAL CELL UR AU 9 /HPF (0-6); UROBILINOGEN, URINE AUTO 0.2 mg/dL (0.0-2.0); WBC, URINE AUTO 1 /HPF (0-3)
[2019-02-22 13:16] LABS: MALB URINE SIEMENS 8.1 MG/L; MAU/CREAT RATIO 7.5 MCG/MG (0.0-30.0)
== END ==
LOC: M SFHCPLAZ 12:12
PROVIDERS: ATTEND Family Medicine
DX: R31.29 Other microscopic hematuria (principal)

== ENCOUNTER → 2019-03-04 | Outpatient (CLI) | payer OTHER ==
[~2019-03-04] MED LIST changes: +BUPIVACAINE HCL 0.25% 10 ML VIAL As Ordered ONE; +BUPIVACAINE HCL 0.25% 30 ML VIAL As Ordered ONE; +TRIAMCINOLONE ACETONIDE SUSP 40 MG/ML VIAL (J3301) As Ordered ONE; +diazePAM 5 MG TAB As Ordered ONE; +oxyCODONE 5MG TAB As Ordered ONE
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
== END ==
LOC: M PAIN 15:00
PROVIDERS: ATTEND Anesthesiology
DX: M79.18 Myalgia, other site (principal); G43.909 Migraine, unspecified, not intractable, without status migrainosus; F43.10 Post-traumatic stress disorder, unspecified; M79.7 Fibromyalgia; F41.9 Anxiety disorder, unspecified; F32.9 Major depressive disorder, single episode, unspecified; Z91.5 Personal history of self-harm; K21.9 Gastro-esophageal reflux disease without esophagitis; J45.909 Unspecified asthma, uncomplicated; A60.09 Herpesviral infection of other urogenital tract; F17.210 Nicotine dependence, cigarettes, uncomplicated; Z79.899 Other long term (current) drug therapy; Z88.2 Allergy status to sulfonamides; Z88.8 Allergy status to other drugs, medicaments and biological substances
CPT/HCPCS: 20552; J3301

== ENCOUNTER 2019-03-09 15:01 | Emergency (ER) | payer OTHER ==
[~2019-03-09] VITALS: Ht 170.2 cm; Wt 149.2 kg
[2019-03-09 15:01] VITALS: BP 173/107
[~2019-03-09 15:01] MED LIST changes: -BUPIVACAINE HCL 0.25% 10 ML VIAL As Ordered ONE; -BUPIVACAINE HCL 0.25% 30 ML VIAL As Ordered ONE; -TRIAMCINOLONE ACETONIDE SUSP 40 MG/ML VIAL (J3301) As Ordered ONE; -diazePAM 5 MG TAB As Ordered ONE; -oxyCODONE 5MG TAB As Ordered ONE
[2019-03-09 16:54] LABS: HEMATOCRIT 39.4 % (36.0-47.0); HEMOGLOBIN 11.8 g/dl (12.0-15.5); MEAN CORPUSCULAR HGB CONC 29.9 g/dl (32.0-36.5); MEAN CORPUSCULAR VOLUME 80.2 fl (80.0-96.0); PLATELET COUNT, AUTOMATED 470 10^3/uL (150-450); RED BLOOD COUNT 4.91 10^6/uL (4.00-5.40); WHITE BLOOD COUNT 12.5 10^3/uL (4.0-10.0)
[2019-03-09 17:14] LABS: ALBUMIN 3.3 GM/DL (3.2-5.2); ALT/SGPT 32 U/L (12-78); AMYLASE 44 U/L (25-115); BILIRUBIN,TOTAL 0.2 MG/DL (0.2-1.0); BLOOD UREA NITROGEN 10 MG/DL (7-18); CALCIUM LEVEL 8.5 MG/DL (8.5-10.1); CARBON DIOXIDE LEVEL 29 MEQ/L (21-32); CHLORIDE LEVEL 104 MEQ/L (98-107); GLOMERULAR FILTRATION RATE > 60.0 (>60); GLUCOSE, FASTING 77 MG/DL (70-100); LIPASE 258 U/L (73-393); POTASSIUM SERUM 4.1 MEQ/L (3.5-5.1); SODIUM LEVEL 139 MEQ/L (136-145); TOTAL PROTEIN 7.5 GM/DL (6.4-8.2)
[2019-03-09 17:37] LABS: APPEARANCE, URINE HAZY (CLEAR); BACTERIA, URINE AUTO NEGATIVE (NEGATIVE); BILIRUBIN, URINE AUTO NEGATIVE (NEGATIVE); BLOOD, URINE BLOOD 1+ (NEGATIVE); COLOR, URINE YELLOW (YELLOW); GLUCOSE, URINE (UA) AUTO NEGATIVE (NEGATIVE); KETONE, URINE AUTO TRACE mg/dL (NEGATIVE); LEUKOCYTE ESTERASE, URINE AUTO NEGATIVE (NEGATIVE); MUCUS, URINE SMALL (NEGATIVE); NITRITE, URINE AUTO NEGATIVE (NEGATIVE); PROTEIN, URINE AUTO 2+ mg/dL (NEGATIVE); RBC, URINE AUTO 59 /HPF (0-3); SPECIFIC GRAVITY URINE AUTO 1.033 (1.002-1.035); SQUAMOUS EPITHELIAL CELL UR AU 2 /HPF (0-6); UROBILINOGEN, URINE AUTO 0.2 mg/dL (0.0-2.0); WBC, URINE AUTO 4 /HPF (0-3)
[2019-03-09] MEDS ORDERED: ISOVUE-370 76% 100ML VIAL (Q9967) As Ordered ONE ×2 (17:42→17:54)
[2019-03-09] MEDS ORDERED: ONDANSETRON 4MG/2ML VIAL (J2405) IV ONE (17:45)
[2019-03-09] MEDS ORDERED: NS 1,000 ML IV ONE (17:45)
[2019-03-09] MEDS ORDERED: diphenhydrAMINE INJ 50MG/ML VIAL (J1200) IV ONE (18:00)
[2019-03-09] MEDS ORDERED: MORPHINE 2 MG/ML 1ML SYRINGE (J2270) IV ONE (19:30)
--- NOTE | 2019-03-09 19:43 | REPVR ---
PROCEDURE INFORMATION: Exam: CT Abdomen and Pelvis With Contrast Exam date and time: 03/09/2019 6:27 PM Clinical history: 28 years old, female; Abdominal pain; Flank; Right lower quadrant (rlq); Additional info: Rlq pain, hematuria TECHNIQUE: Imaging protocol: Computed tomography of the abdomen and pelvis with intravenous contrast. Radiation optimization: All CT scans at this facility use at least one of these dose optimization techniques: automated exposure control; mA and/or kV adjustment per patient size (includes targeted exams where dose is matched to clinical indication); or iterative reconstruction. Contrast material: ISOVUE 370; Contrast volume: 100 ml; Contrast route: IV; COMPARISON: CT ABD/PEL W/IV CONTRAST ONLY 08/24/2018 7:49 AM FINDINGS: Lungs: There is bibasilar compressive atelectasis. Liver: Normal. No mass. Gallbladder and bile ducts: There has been a cholecystectomy. Pancreas: Normal. No ductal dilation. Spleen: Normal. No splenomegaly. Adrenals: Normal. No mass. Kidneys and ureters: Normal. No hydronephrosis. Stomach and bowel: Neural stratification and ahaustral appearance of the distal transverse left and sigmoid colon, findings consistent with colitis likely chronic in the absence of any acute symptomatology in the left side of the abdomen. Appendix: Normal appendix. Intraperitoneal space: Unremarkable. No free air. No significant fluid collection. Vasculature: Unremarkable. No abdominal aortic aneurysm. Lymph nodes: Unremarkable. No enlarged lymph nodes. Bladder: Unremarkable as visualized. Reproductive: Bilateral ovarian cysts including a dominant functional cyst the left ovary measuring 2.5 cm. Bones/joints: Unremarkable. No acute fracture. Soft tissues: Unremarkable. IMPRESSION: 1. There has been a cholecystectomy. 2. Neural stratification and ahaustral appearance of the distal transverse left and sigmoid colon, findings consistent with colitis likely chronic in the absence of any acute symptomatology in the left side of the abdomen. 3. Normal appendix. Electronically signed by: Reji Ruiz On 03/09/2019 19:42:56 PM
[2019-03-09] MEDS ORDERED: MACR100C43 PO (19:51)
== END 2019-03-09 20:05 | disposition home or self-care (01) ==
LOC: M ED 15:01
DX: N39.0 Urinary tract infection, site not specified (principal); T39.8X5A Adverse effect of other nonopioid analgesics and antipyretics, not elsewhere classified, initial encounter; R11.2 Nausea with vomiting, unspecified; I10 Essential (primary) hypertension; Z87.19 Personal history of other diseases of the digestive system; K21.9 Gastro-esophageal reflux disease without esophagitis; E28.2 Polycystic ovarian syndrome; J45.909 Unspecified asthma, uncomplicated; G43.909 Migraine, unspecified, not intractable, without status migrainosus; M79.7 Fibromyalgia; F17.200 Nicotine dependence, unspecified, uncomplicated; Z88.8 Allergy status to other drugs, medicaments and biological substances; Z88.2 Allergy status to sulfonamides; Z79.899 Other long term (current) drug therapy
CPT/HCPCS: 74177; 80053; 81001; 82150; 83690; 85027; 96361; 96374; 96375; 99284; J1200; J2270; J2405; Q9967

== ENCOUNTER 2019-03-31 15:20 | Emergency (ER) | payer OTHER ==
[~2019-03-31] VITALS: Ht 170.2 cm; Wt 153.5 kg
[~2019-03-31 15:20] MED LIST changes: -OMEP40CA2 PO; +OMEP40CA97 PO
[2019-03-31 15:21] VITALS: BP 135/75
[2019-03-31] MEDS ORDERED: ONDANSETRON 4 MG ORAL DISINTEGRATING TAB (Q0162 PER 1MG) PO ONE (16:00)
[2019-03-31] MEDS ORDERED: diphenhydrAMINE 25 MG CAP PO ONE (16:30)
[2019-03-31] MEDS ORDERED: diazePAM 5 MG TAB PO ONE (16:30)
[2019-03-31 17:52] LABS: BASO % 0.5 % (0.0-1.0); EOS # 0.2 10^3/uL (0.0-0.5); EOS % 2.8 % (0.0-3.0); HEMATOCRIT 35.2 % (36.0-47.0); HEMOGLOBIN 10.6 g/dl (12.0-15.5); LYMPH # 2.5 10^3/uL (1.5-5.0); LYMPH % 28.7 % (24.0-44.0); MEAN CORPUSCULAR HEMOGLOBIN 23.8 pg (27.0-33.0); MEAN CORPUSCULAR HGB CONC 30.1 g/dl (32.0-36.5); MEAN CORPUSCULAR VOLUME 78.9 fl (80.0-96.0); MONO # 0.3 10^3/uL (0.0-0.8); MONO % 3.3 % (0.0-5.0); NEUTROPHILS # 5.5 10^3/uL (1.5-8.5); PLATELET COUNT, AUTOMATED 363 10^3/uL (150-450); RED BLOOD COUNT 4.46 10^6/uL (4.00-5.40); WHITE BLOOD COUNT 8.5 10^3/uL (4.0-10.0)
[2019-03-31] MEDS ORDERED: NORCO, ANEXSIA 5/325MG TABLET (HYDROcodone/ACETAMINOPHEN) PO ONE (18:00)
[2019-03-31 18:15] LABS: HCG, SERUM QUALITATIVE NEGATIVE (NEGATIVE)
[2019-03-31 18:18] LABS: ALT/SGPT 33 U/L (12-78); BILIRUBIN,DIRECT < 0.1 MG/DL (0.0-0.2); BILIRUBIN,TOTAL 0.2 MG/DL (0.2-1.0); BLOOD UREA NITROGEN 10 MG/DL (7-18); CALCIUM LEVEL 8.9 MG/DL (8.5-10.1); CARBON DIOXIDE LEVEL 28 MEQ/L (21-32); CHLORIDE LEVEL 106 MEQ/L (98-107); CREATININE FOR GFR 0.75 MG/DL (0.55-1.30); GLOMERULAR FILTRATION RATE > 60.0 (>60); GLUCOSE, FASTING 94 MG/DL (70-100); LIPASE 148 U/L (73-393); POTASSIUM SERUM 4.3 MEQ/L (3.5-5.1); SODIUM LEVEL 139 MEQ/L (136-145)
[2019-03-31 18:50] LABS: CHLAMYDIA DNA AMPLIFICATION NEGATIVE (NEGATIVE); GC DNA AMPLIFICATION NEGATIVE (NEGATIVE)
--- NOTE | 2019-03-31 19:05 | REPVR ---
PROCEDURE INFORMATION: Exam: US Pelvis Complete, Transabdominal Exam date and time: 03/31/2019 6:08 PM Clinical history: 28 years old, female; Pelvic pain; Prior surgery; Surgery date: 6+ months; Surgery type: C secrtion TECHNIQUE: Imaging protocol: Real-time transabdominal pelvic ultrasound with image documentation. Complete exam. COMPARISON: Transvaginal NON- US 10/28/2018 4:04 PM FINDINGS: Uterus/cervix: 7.9 x 3.5 x 4.6 cm uterus is anteverted without masses. 3 mm thick endometrium. scar along the lower uterine segment. Multiple nabothian cysts. Right adnexa: Right ovary not seen. Left adnexa: Left ovary not seen. Free fluid: None. Bladder: Unremarkable 8.7 x 5.6 x 7.9 cm bladder. IMPRESSION: No acute abnormality. Electronically signed by: Baldomero Hudson On 03/31/2019 19:05:01 PM
== END 2019-03-31 18:54 | disposition left against medical advice (07) ==
LOC: M ED 15:20
DX: R10.2 Pelvic and perineal pain (principal); E28.2 Polycystic ovarian syndrome; F60.9 Personality disorder, unspecified; F43.10 Post-traumatic stress disorder, unspecified; Z88.8 Allergy status to other drugs, medicaments and biological substances; Z88.2 Allergy status to sulfonamides; Z79.899 Other long term (current) drug therapy; Z53.29 Procedure and treatment not carried out because of patient's decision for other reasons
CPT/HCPCS: 76830; 76856; 80048; 80076; 81001; 83690; 84703; 85025; 87210; 87491; 87591; 99281; Q0162

== ENCOUNTER 2019-04-23 19:41 | Emergency (ER) | payer OTHER ==
[~2019-04-23] VITALS: Ht 170.2 cm; Wt 151.4 kg
[2019-04-23 19:42] VITALS: BP 185/107
[2019-04-23] MEDS ORDERED: diphenhydrAMINE INJ 50MG/ML VIAL (J1200) IV STA (20:16)
[2019-04-23 20:36] LABS: APPEARANCE, URINE HAZY (CLEAR); BACTERIA, URINE AUTO NEGATIVE (NEGATIVE); BILIRUBIN, URINE AUTO NEGATIVE (NEGATIVE); BLOOD, URINE BLOOD NEGATIVE (NEGATIVE); COLOR, URINE YELLOW (YELLOW); GLUCOSE, URINE (UA) AUTO NEGATIVE (NEGATIVE); KETONE, URINE AUTO NEGATIVE (NEGATIVE); LEUKOCYTE ESTERASE, URINE AUTO NEGATIVE (NEGATIVE); MUCUS, URINE SMALL (NEGATIVE); NITRITE, URINE AUTO NEGATIVE (NEGATIVE); PROTEIN, URINE AUTO NEGATIVE (NEGATIVE); RBC, URINE AUTO 2 /HPF (0-3); SPECIFIC GRAVITY URINE AUTO 1.028 (1.002-1.035); SQUAMOUS EPITHELIAL CELL UR AU 4 /HPF (0-6); UROBILINOGEN, URINE AUTO 0.2 mg/dL (0.0-2.0); WBC, URINE AUTO 1 /HPF (0-3)
[2019-04-23 20:39] LABS: BASO % 0.4 % (0.0-1.0); EOS # 0.2 10^3/uL (0.0-0.5); EOS % 2.1 % (0.0-3.0); HEMATOCRIT 35.6 % (36.0-47.0); HEMOGLOBIN 10.5 g/dl (12.0-15.5); LYMPH # 2.2 10^3/uL (1.5-5.0); MEAN CORPUSCULAR HEMOGLOBIN 23.3 pg (27.0-33.0); MEAN CORPUSCULAR HGB CONC 29.5 g/dl (32.0-36.5); MEAN CORPUSCULAR VOLUME 78.9 fl (80.0-96.0); MONO # 0.3 10^3/uL (0.0-0.8); MONO % 3.3 % (0.0-5.0); NEUTROPHILS # 7.3 10^3/uL (1.5-8.5); NEUTROPHILS % 71.7 % (36.0-66.0); PLATELET COUNT, AUTOMATED 366 10^3/uL (150-450); RED BLOOD COUNT 4.51 10^6/uL (4.00-5.40); WHITE BLOOD COUNT 10.2 10^3/uL (4.0-10.0)
[2019-04-23] MEDS ORDERED: ONDANSETRON 4MG/2ML VIAL (J2405) IV ONE (20:45)
[2019-04-23] MEDS ORDERED: GASTROGRAFIN SOLUTION 30ML PO SCH (20:50)
[2019-04-23 21:00] LABS: ALBUMIN 2.8 GM/DL (3.2-5.2); ALT/SGPT 38 U/L (12-78); BILIRUBIN,DIRECT < 0.1 MG/DL (0.0-0.2); BILIRUBIN,TOTAL < 0.1 MG/DL (0.2-1.0); BLOOD UREA NITROGEN 12 MG/DL (7-18); CALCIUM LEVEL 8.7 MG/DL (8.5-10.1); CARBON DIOXIDE LEVEL 29 MEQ/L (21-32); CHLORIDE LEVEL 109 MEQ/L (98-107); CREATININE FOR GFR 0.77 MG/DL (0.55-1.30); GLOMERULAR FILTRATION RATE > 60.0 (>60); GLUCOSE, FASTING 110 MG/DL (70-100); HCG, SERUM QUALITATIVE NEGATIVE (NEGATIVE); LIPASE 151 U/L (73-393); POTASSIUM SERUM 4.2 MEQ/L (3.5-5.1); SODIUM LEVEL 140 MEQ/L (136-145); TOTAL PROTEIN 6.7 GM/DL (6.4-8.2)
== END 2019-04-23 20:45 | disposition left against medical advice (07) ==
LOC: M ED 19:41
DX: R10.9 Unspecified abdominal pain (principal); Z88.8 Allergy status to other drugs, medicaments and biological substances; Z88.2 Allergy status to sulfonamides; Z79.899 Other long term (current) drug therapy; Z53.29 Procedure and treatment not carried out because of patient's decision for other reasons
CPT/HCPCS: 80048; 80076; 81001; 83690; 84703; 85025; 87086; 99283; Q9963

== ENCOUNTER → 2019-04-30 | Outpatient (REF) | payer OTHER | LOC: M LAB REF 12:11 | PROVIDERS: ATTEND Nurse Practitioner Family | DX: E55.9 Vitamin D deficiency, unspecified (principal) ==

== ENCOUNTER 2019-05-07 21:49 | Emergency (ER) | payer OTHER ==
[~2019-05-07] VITALS: Ht 170.2 cm; Wt 151.4 kg
[2019-05-07 21:49] VITALS: BP 171/96
[2019-05-07] MEDS ORDERED: BENZOCAINE 20% GEL 9GM TUBE (ANBESOL MAX STRENGTH) TOP ONE (22:15)
[2019-05-07] MEDS ORDERED: ARTICAINE HCL/EPINEPHRINE 4%-1:200,000 1.7ML INJ (SEPTOCAINE) SM ONE (22:15)
[2019-05-07] MEDS ORDERED: NORC1TAB7 PO (22:36)
[2019-05-07] MEDS ORDERED: AUGM875T28 PO (22:36)
[2019-05-07] MEDS ORDERED: NORCO, ANEXSIA 5/325MG TABLET (HYDROcodone/ACETAMINOPHEN) PO ONE (22:45)
== END 2019-05-07 22:47 | disposition home or self-care (01) ==
LOC: M ED 21:49
DX: K02.9 Dental caries, unspecified (principal); S02.5XXA Fracture of tooth (traumatic), initial encounter for closed fracture; X58.XXXA Exposure to other specified factors, initial encounter; Y92.89 Other specified places as the place of occurrence of the external cause; Y93.89 Activity, other specified; Y99.8 Other external cause status; I10 Essential (primary) hypertension; J45.909 Unspecified asthma, uncomplicated; K21.9 Gastro-esophageal reflux disease without esophagitis; F41.9 Anxiety disorder, unspecified; F33.9 Major depressive disorder, recurrent, unspecified; F43.10 Post-traumatic stress disorder, unspecified; F60.3 Borderline personality disorder; Z79.899 Other long term (current) drug therapy; Z88.8 Allergy status to other drugs, medicaments and biological substances; Z88.2 Allergy status to sulfonamides

== ENCOUNTER 2019-05-19 16:10 | Emergency (ER) | payer OTHER ==
[~2019-05-19] VITALS: Ht 170.2 cm; Wt 155.5 kg
[2019-05-19 16:10] VITALS: BP 143/89
[~2019-05-19 16:10] MED LIST changes: +AUGM875T28 PO; +CLON0.5T2 PO; -CLON0.5T8 PO
[2019-05-19 17:16] LABS: INFLUENZA A AMPLIFICATION NEGATIVE (NEGATIVE); INFLUENZA B AMPLIFICATION NEGATIVE (NEGATIVE)
[2019-05-19] MEDS ORDERED: NS 1,000 ML IV ONE (17:45)
[2019-05-19] MEDS ORDERED: PANTOPRAZOLE 40MG TAB (PROTONIX) PO ONE (17:45)
[2019-05-19] MEDS ORDERED: PROMETHAZINE INJ 25 MG/ML VIAL (J2550) IV ONE (17:45)
--- NOTE | 2019-05-19 18:50 | REPVR ---
PROCEDURE INFORMATION: Exam: CT Abdomen And Pelvis Without Contrast Exam date and time: 05/19/2019 5:47 PM Age: 28 years old Clinical history: Abdominal pain; Generalized; Additional info: Abd pain TECHNIQUE: Imaging protocol: Computed tomography of the abdomen and pelvis without contrast. Radiation optimization: All CT scans at this facility use at least one of these dose optimization techniques: automated exposure control; mA and/or kV adjustment per patient size (includes targeted exams where dose is matched to clinical indication); or iterative reconstruction. COMPARISON: CT ABD/PEL W/IV CONTRAST ONLY 03/09/2019 6:27 PM FINDINGS: Limitations: Lack of intravenous contrast material limits evaluation of the vascular and visceral structures. Lungs: Mild linear atelectasis or scarring in the right lower lobe. Stable 4 mm noncalcified left lower lobe pulmonary nodule, abutting the pleura. This has been stable since 2018 and warrants no followup imaging. Liver: Mild hepatomegaly. Gallbladder and bile ducts: There has been a cholecystectomy. Pancreas: Normal. No ductal dilation. Spleen: Normal. No splenomegaly. Adrenals: Normal. No mass. Kidneys and ureters: Normal. No hydronephrosis. Stomach and bowel: Unremarkable. No obstruction. No mucosal thickening. Appendix: No evidence of appendicitis. Intraperitoneal space: Unremarkable. No free air. No significant fluid collection. Vasculature: Unremarkable. No abdominal aortic aneurysm. Lymph nodes: Unremarkable. No enlarged lymph nodes. Bladder: Unremarkable as visualized. Reproductive: Unremarkable as visualized. Bones/joints: Mild bilateral sacroiliac joint DJD. Soft tissues: Unremarkable. IMPRESSION: 1. No acute abnormality is identified within the abdomen/pelvis. 2. Mild hepatomegaly. Electronically signed by: Kathia Byrd On 05/19/2019 18:49:54 PM
== END 2019-05-19 18:22 | disposition left against medical advice (07) ==
LOC: M ED 16:10
DX: R10.9 Unspecified abdominal pain (principal); I10 Essential (primary) hypertension; F17.200 Nicotine dependence, unspecified, uncomplicated; Z88.2 Allergy status to sulfonamides; Z88.6 Allergy status to analgesic agent; Z88.1 Allergy status to other antibiotic agents; Z88.8 Allergy status to other drugs, medicaments and biological substances; Z79.899 Other long term (current) drug therapy

== ENCOUNTER 2019-05-28 07:07 | Emergency (ER) | payer OTHER ==
[~2019-05-28] VITALS: Ht 170.2 cm; Wt 155.0 kg
[2019-05-28 08:09] LABS: BASO % 0.5 % (0.0-1.0); EOS # 0.3 10^3/uL (0.0-0.5); EOS % 3.4 % (0.0-3.0); HEMATOCRIT 38.7 % (36.0-47.0); HEMOGLOBIN 11.1 g/dl (12.0-15.5); LYMPH # 1.3 10^3/uL (1.5-5.0); LYMPH % 17.2 % (24.0-44.0); MEAN CORPUSCULAR HEMOGLOBIN 22.3 pg (27.0-33.0); MEAN CORPUSCULAR HGB CONC 28.7 g/dl (32.0-36.5); MEAN CORPUSCULAR VOLUME 77.7 fl (80.0-96.0); MONO # 0.4 10^3/uL (0.0-0.8); MONO % 4.8 % (0.0-5.0); NEUTROPHILS # 5.6 10^3/uL (1.5-8.5); NEUTROPHILS % 72.8 % (36.0-66.0); PLATELET COUNT, AUTOMATED 390 10^3/uL (150-450); RED BLOOD COUNT 4.98 10^6/uL (4.00-5.40); WHITE BLOOD COUNT 7.7 10^3/uL (4.0-10.0)
[2019-05-28] MEDS ORDERED: IPRATROPIUM 0.5MG/ALBUTEROL 2.5MG INH SOL UD 3ML (DUONEB)(J7620) NEB ONE (08:15)
[2019-05-28] MEDS ORDERED: ALBUTEROL SULFATE 2.5 MG/0.5 ML INH NEB SOLN INH ONE (08:15)
[2019-05-28 08:21] LABS: INR 1.02; PROTHROMBIN TIME 13.1 SECONDS (11.8-14.0)
[2019-05-28] MEDS ORDERED: ISOVUE-370 76% 100ML VIAL (Q9967) As Ordered ONE (08:22)
[2019-05-28 08:31] LABS: ALT/SGPT 28 U/L (12-78); BILIRUBIN,DIRECT < 0.1 MG/DL (0.0-0.2); BILIRUBIN,TOTAL 0.2 MG/DL (0.2-1.0); CK-MB VALUE MASS < 1.0 NG/ML (<3.6); CPK CREATINE PHOSPHOKINASE 42 U/L (26-192); LIPASE 117 U/L (73-393); MB/CK RELATIVE INDEX 2.38 (< OR =4); TOTAL PROTEIN 7.1 GM/DL (6.4-8.2); TROPONIN I < 0.02 NG/ML (< 0.10)
[2019-05-28] MEDS ORDERED: ACET1TAB55 PO (08:48)
[2019-05-28] MEDS ORDERED: GNP10CAP PO (08:48)
--- NOTE | 2019-05-28 08:49 | REP ---
Portable chest x-ray: Single view. History: Chest pain. Comparison chest x-ray: January 09, 2019. Findings: The lungs are well inflated and clear. Pleural angles are sharp. Heart size is normal. Pulmonary vasculature is not increased. Monitoring electrodes are seen. Impression: No active disease. Electronically Signed by Glen Cordero MD 05/28/2019 08:40 A
--- NOTE | 2019-05-28 09:05 | REP ---
CT pulmonary angiogram: With IV contrast. History: Rule out pulmonary embolus. Comparison studies: Comparison chest CT April 08, 2007. Contrast dose: 75 mL of Isovue [address] technique: Helical scanning is acquired and overlapping 1.5 mm and contiguous 3 mm axial images are reformatted. In addition, maximum intensity projection and multiplanar re-formation images are generated in sagittal and coronal imaging projections. CT pulmonary angiographic findings: There is good opacification of the pulmonary arterial tree and there is no CT evidence of pulmonary embolism. The thoracic aorta enhances homogeneously without evidence of aneurysm or dissection. Maximal intensity projection images show no vessel cutoff or filling defect. Right hemidiaphragm is somewhat elevated. This finding is not apparent on previous radiographs including today's sitting portable chest x-ray and must relate to a poor level of inspiration. There is no evidence of infiltrate or atelectasis. There are two subcentimeter benign perifissural nodules, one in each lung field. These are unchanged. There is a subpleural nodule in the left lower lobe, which is unchanged from the 2007 study as well and there is an area of focal fibrosis in the right middle lobe, unchanged from prior exam. There is no evidence of pleural or pericardial effusion. No hilar or mediastinal mass or adenopathy is seen. No adrenal lesion is observed. The visualized upper abdominal structures are unremarkable. Impression: No CT evidence of pulmonary embolus. Elevated right hemidiaphragm felt to be related to low level of inspiration. Stable pulmonary nodules, unchanged from 2007 prior study. No active disease seen. Electronically Signed by Glen Cordero MD 05/28/2019 12:38 P
--- NOTE | 2019-05-28 09:08 | REP ---
CT abdomen and pelvis with IV but without oral contrast: History: Rule out pulmonary embolism. Comparison CT abdomen study March 09, 2019. CT contrast dose: 100 mL of intravenous Isovue [address] findings: Preliminary digital spanish speaking nanny radiograph demonstrates a normal bowel gas pattern. The lung bases are free of infiltrate. The liver is at the upper range of normal in size, but homogeneous in texture and unchanged from prior study. Spleen is unremarkable although also borderline in size. No adrenal lesion is seen. Pancreas is unremarkable. Gallbladder is surgically absent. The kidneys enhance symmetrically and are morphologically intact. Small and large bowel loops are normal in the upper abdomen. There is some intramural submucosal fat again noted in the distal colon, which can be a feature of prior inflammatory bowel disease, chronic change. Normal appendix is seen. No evidence of obstruction or mass. No uterine or ovarian abnormality is seen. Urinary bladder is intact. No abdominal wall defect or bony destructive lesion seen. Impression: No acute abnormality. Intramural submucosal fat in the distal colon again noted unchanged consistent with old inflammatory bowel change. Post cholecystectomy. Electronically Signed by Glen Cordero MD 05/28/2019 12:38 P
[2019-05-28] MEDS ORDERED: LORazepam 2 MG/ML VIAL (J2060) IV STA (09:14)
[2019-05-28] MEDS ORDERED: PERCOCET 5MG/325MG TAB PO ONE (09:45)
[2019-05-28] MEDS ORDERED: VENTAER INH (09:49)
[2019-05-28] MEDS ORDERED: PERC5TAB12 PO (09:52)
[2019-05-28 09:55] VITALS: BP 163/77
[2019-05-28] MEDS ORDERED: GUAI200T6 PO (09:55)
--- NOTE | 2019-05-28 19:17 | ECGEPIP ---
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
== END 2019-05-28 10:27 | disposition home or self-care (01) ==
LOC: M ED 07:07
DX: J20.9 Acute bronchitis, unspecified (principal); R07.89 Other chest pain; K21.9 Gastro-esophageal reflux disease without esophagitis; R10.9 Unspecified abdominal pain; E28.2 Polycystic ovarian syndrome; F41.0 Panic disorder [episodic paroxysmal anxiety]; M79.7 Fibromyalgia; F60.3 Borderline personality disorder; F43.10 Post-traumatic stress disorder, unspecified; F17.210 Nicotine dependence, cigarettes, uncomplicated; Z88.2 Allergy status to sulfonamides; Z88.8 Allergy status to other drugs, medicaments and biological substances; Z79.899 Other long term (current) drug therapy
CPT/HCPCS: 71045; 71275; 74177; 80047; 80076; 82550; 82553; 83690; 84702; 85025; 85610; 93005; 93041; 94640; 94760; 96374; 99285; J2060; Q9967

== ENCOUNTER 2019-06-09 13:02 | Emergency (ER) | payer OTHER ==
[~2019-06-09] VITALS: Ht 170.2 cm; Wt 158.6 kg
[~2019-06-09 13:02] MED LIST changes: +GNP10CAP PO; +GUAI200T6 PO
[2019-06-09 13:03] VITALS: BP 126/93
[2019-06-09] MEDS ORDERED: diazePAM 5 MG TAB PO ONE (14:15)
[2019-06-09] MEDS ORDERED: ALBUTEROL SULFATE 2.5 MG/0.5 ML INH NEB SOLN NEB ONE (14:15)
--- NOTE | 2019-06-12 08:39 | ECGEPIP ---
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
== END 2019-06-09 15:12 | disposition left against medical advice (07) ==
LOC: M ED 13:02
DX: J45.909 Unspecified asthma, uncomplicated (principal); D64.9 Anemia, unspecified; F43.10 Post-traumatic stress disorder, unspecified; K21.9 Gastro-esophageal reflux disease without esophagitis; M79.7 Fibromyalgia; Z53.21 Procedure and treatment not carried out due to patient leaving prior to being seen by health care provider; I45.10 Unspecified right bundle-branch block; Z88.2 Allergy status to sulfonamides; Z88.6 Allergy status to analgesic agent; Z88.8 Allergy status to other drugs, medicaments and biological substances

== ENCOUNTER 2019-06-21 01:55 | Emergency (ER) | payer OTHER ==
[~2019-06-21] VITALS: Ht 170.2 cm; Wt 154.6 kg
[~2019-06-21 01:55] MED LIST changes: +LORA2TAB14 PO; -LORA2TAB9 PO
[2019-06-21] MEDS ORDERED: ZOLP5TAB PO (02:03)
[2019-06-21] MEDS ORDERED: CLON-412 PO (02:03)
[2019-06-21] MEDS ORDERED: LORA1TAB4 PO (02:03)
[2019-06-21 02:34] LABS: BASO % 0.4 % (0.0-1.0); EOS # 0.3 10^3/uL (0.0-0.5); EOS % 3.6 % (0.0-3.0); HEMATOCRIT 35.3 % (36.0-47.0); HEMOGLOBIN 10.1 g/dl (12.0-15.5); LYMPH # 1.9 10^3/uL (1.5-5.0); LYMPH % 26.5 % (24.0-44.0); MEAN CORPUSCULAR HGB CONC 28.6 g/dl (32.0-36.5); MEAN CORPUSCULAR VOLUME 76.9 fl (80.0-96.0); MONO # 0.3 10^3/uL (0.0-0.8); MONO % 3.6 % (0.0-5.0); NEUTROPHILS # 4.6 10^3/uL (1.5-8.5); NEUTROPHILS % 65.2 % (36.0-66.0); PLATELET COUNT, AUTOMATED 358 10^3/uL (150-450); RED BLOOD COUNT 4.59 10^6/uL (4.00-5.40)
[2019-06-21 02:58] LABS: ALBUMIN 2.8 GM/DL (3.2-5.2); ALT/SGPT 21 U/L (12-78); BILIRUBIN,DIRECT < 0.1 MG/DL (0.0-0.2); BILIRUBIN,TOTAL 0.1 MG/DL (0.2-1.0); BLOOD UREA NITROGEN 11 MG/DL (7-18); CALCIUM LEVEL 8.4 MG/DL (8.5-10.1); CARBON DIOXIDE LEVEL 27 MEQ/L (21-32); CHLORIDE LEVEL 106 MEQ/L (98-107); CREATININE FOR GFR 0.71 MG/DL (0.55-1.30); GLOMERULAR FILTRATION RATE > 60.0 (>60); GLUCOSE, FASTING 132 MG/DL (70-100); LIPASE 102 U/L (73-393); SODIUM LEVEL 142 MEQ/L (136-145); TOTAL PROTEIN 6.8 GM/DL (6.4-8.2)
[2019-06-21] MEDS ORDERED: ONDANSETRON 4MG/2ML VIAL (J2405) IV ONE (03:30)
[2019-06-21] MEDS ORDERED: diphenhydrAMINE INJ 50MG/ML VIAL (J1200) IV ONE ×2 (03:30→05:30)
[2019-06-21] MEDS ORDERED: ISOVUE-370 76% 100ML VIAL (Q9967) As Ordered ONE (03:32)
[2019-06-21] MEDS: MORPHINE 4 MG/ML 1ML VIAL/SYRINGE (J2270) IV PRN ×2 (03:54→05:28)
--- NOTE | 2019-06-21 05:21 | REPVR ---
PROCEDURE INFORMATION: Exam: CT Abdomen And Pelvis With Contrast Exam date and time: 06/21/2019 3:27 AM Age: 28 years old Clinical indication: Abdominal pain; Localized; Right lower quadrant (rlq); Additional info: Rlq abd pain TECHNIQUE: Imaging protocol: Computed tomography of the abdomen and pelvis with intravenous contrast. Radiation optimization: All CT scans at this facility use at least one of these dose optimization techniques: automated exposure control; mA and/or kV adjustment per patient size (includes targeted exams where dose is matched to clinical indication); or iterative reconstruction. Contrast material: ISO; Contrast volume: 100 ml; Contrast route: AC; COMPARISON: CT ABD/PEL W/IV CONTRAST ONLY 05/28/2019 8:27 AM images only. A report is not submitted. FINDINGS: Lungs: Today's 3 MM pleural-based nodule left lower lobe series 201 image 1. Liver: Hepatomegaly with longitudinal diameter 20.0 CM. Gallbladder and bile ducts: Postoperative cholecystectomy. Pancreas: Normal. No ductal dilation. Spleen: Normal. No splenomegaly. Adrenals: Normal. No mass. Kidneys and ureters: Normal. No hydronephrosis. Stomach and bowel: Unremarkable. No obstruction. No mucosal thickening. Appendix: No evidence of appendicitis. Intraperitoneal space: Unremarkable. No free air. No significant fluid collection. Vasculature: Unremarkable. No abdominal aortic aneurysm. Lymph nodes: Few scattered small retroperitoneal and mesenteric lymph nodes. Bladder: Unremarkable as visualized. Reproductive: Unremarkable as visualized. Bones/joints: Unremarkable. No acute fracture. Soft tissues: Limitation by motion degradation and patient body habitus. IMPRESSION: 1. Mild hepatomegaly. 2. Similar subcentimeter nodule left lower lung.For patients at low risk (minimal or absent history of smoking and of other known risk factors), no routine follow-up is indicated. For patients at high risk (history of smoking or of other known risk factors), consider optional CT at 12 months. (Josh et al., Fleischner Society, 2017) Electronically signed by: Catrachita Delgado On 06/21/2019 05:20:48 AM
[2019-06-21] MEDS ORDERED: LORazepam 2 MG/ML VIAL (J2060) IV STA (05:39)
[2019-06-21 05:41] VITALS: BP 136/59
[2019-06-21] MEDS ORDERED: PRED20TA PO (05:41)
[2019-06-21] MEDS ORDERED: LORazepam 2 MG/ML VIAL (J2060) As Ordered ONE (05:45)
[2019-06-21] MEDS ORDERED: NORCO 5/325MG TABLET (BULK FOR ED) PO ONE (05:45)
--- NOTE | 2019-06-21 12:59 | ED PDOC ---
Post-Departure Follow-Up dr jackson faxed formal report of ct abd/p for fu Giovany Montesinos MD Jun 21, 2019 12:59
== END 2019-06-21 05:58 | disposition home or self-care (01) ==
LOC: M ED 01:55
DX: R10.9 Unspecified abdominal pain (principal); R11.10 Vomiting, unspecified; E28.2 Polycystic ovarian syndrome; F17.210 Nicotine dependence, cigarettes, uncomplicated; Z88.8 Allergy status to other drugs, medicaments and biological substances; Z88.2 Allergy status to sulfonamides; Z88.1 Allergy status to other antibiotic agents; Z79.899 Other long term (current) drug therapy
CPT/HCPCS: 74177; 80048; 80076; 81001; 83690; 84702; 85025; 96374; 96375; 96376; 99284; J1200; J2060; J2270; J2405; Q9967

== ENCOUNTER 2019-06-26 07:51 | Emergency (ER) | payer OTHER ==
[~2019-06-26] VITALS: Ht 170.2 cm; Wt 159.9 kg
[~2019-06-26 07:51] MED LIST changes: +CLON-412 PO; +LORA1TAB4 PO; +PRED20TA PO; +ZOLP5TAB PO
[2019-06-26 07:52] VITALS: BP 163/99
[2019-06-26] MEDS ORDERED: diphenhydrAMINE 25 MG CAP PO ONE (08:30)
[2019-06-26] MEDS ORDERED: ACETAMINOPHEN TAB 650MG DOSE (2X325MG) PO ONE (08:30)
[2019-06-26] MEDS ORDERED: ALBUTEROL SULFATE 2.5 MG/0.5 ML INH NEB SOLN NEB ONE (08:30)
[2019-06-26] MEDS ORDERED: ONDANSETRON 4 MG ORAL DISINTEGRATING TAB (Q0162 PER 1MG) PO ONE (08:30)
[2019-06-26] MEDS ORDERED: ONDANSETRON 4MG/2ML VIAL (J2405) IV ONE (08:45)
[2019-06-26 08:59] LABS: BASO % 0.3 % (0.0-1.0); EOS # 0.3 10^3/uL (0.0-0.5); EOS % 3.2 % (0.0-3.0); HEMATOCRIT 36.7 % (36.0-47.0); HEMOGLOBIN 10.5 g/dl (12.0-15.5); LYMPH # 2.2 10^3/uL (1.5-5.0); LYMPH % 21.7 % (24.0-44.0); MEAN CORPUSCULAR HEMOGLOBIN 21.9 pg (27.0-33.0); MEAN CORPUSCULAR HGB CONC 28.6 g/dl (32.0-36.5); MEAN CORPUSCULAR VOLUME 76.6 fl (80.0-96.0); MONO # 0.3 10^3/uL (0.0-0.8); MONO % 2.6 % (0.0-5.0); NEUTROPHILS # 7.1 10^3/uL (1.5-8.5); NEUTROPHILS % 71.4 % (36.0-66.0); PLATELET COUNT, AUTOMATED 382 10^3/uL (150-450); RED BLOOD COUNT 4.79 10^6/uL (4.00-5.40); WHITE BLOOD COUNT 9.9 10^3/uL (4.0-10.0)
[2019-06-26 09:35] LABS: ALBUMIN 3.1 GM/DL (3.2-5.2); ALT/SGPT 27 U/L (12-78); BILIRUBIN,DIRECT < 0.1 MG/DL (0.0-0.2); BILIRUBIN,TOTAL 0.2 MG/DL (0.2-1.0); BLOOD UREA NITROGEN 11 MG/DL (7-18); CALCIUM LEVEL 8.6 MG/DL (8.5-10.1); CARBON DIOXIDE LEVEL 25 MEQ/L (21-32); CHLORIDE LEVEL 106 MEQ/L (98-107); CK-MB VALUE MASS < 1.0 NG/ML (<3.6); CPK CREATINE PHOSPHOKINASE 42 U/L (26-192); CREATININE FOR GFR 0.72 MG/DL (0.55-1.30); GLOMERULAR FILTRATION RATE > 60.0 (>60); GLUCOSE, FASTING 129 MG/DL (70-100); LIPASE 108 U/L (73-393); MB/CK RELATIVE INDEX 2.38 (< OR =4); NT-PRO BNP 7 PG/ML (<125); POTASSIUM SERUM 4.2 MEQ/L (3.5-5.1); SODIUM LEVEL 141 MEQ/L (136-145); TOTAL PROTEIN 7.3 GM/DL (6.4-8.2); TROPONIN I < 0.02 NG/ML (< 0.10)
--- NOTE | 2019-06-26 09:40 | REP ---
CHEST, TWO VIEWS: There is no evidence of acute infiltrate. No pleural effusion is seen. The heart is normal in size. The mediastinal silhouette is unremarkable. The visualized osseous structures are intact. IMPRESSION: No acute pulmonary disease. Electronically Signed by Christiano Alvarado MD 06/26/2019 09:43 A
[2019-06-26 09:43] LABS: HCG, SERUM QUALITATIVE NEGATIVE (NEGATIVE)
[2019-06-26] MEDS ORDERED: IPRATROPIUM 0.5MG/ALBUTEROL 2.5MG INH SOL UD 3ML (DUONEB)(J7620) NEB ONE (09:45)
[2019-06-26] MEDS ORDERED: BENZONATATE 100 MG CAP PO ONE (09:45)
[2019-06-26] MEDS ORDERED: GI COCKTAIL 50ML BTL(HYOSCYAMINE/MAALOX/LIDOCAINE VISCOUS)(1:3:1) PO ONE (09:45)
--- NOTE | 2019-06-26 20:40 | ECGEPIP ---
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
== END 2019-06-26 10:15 | disposition left against medical advice (07) ==
LOC: M ED 07:51
DX: R10.9 Unspecified abdominal pain (principal); E66.9 Obesity, unspecified; F17.200 Nicotine dependence, unspecified, uncomplicated; Z87.19 Personal history of other diseases of the digestive system; Z87.440 Personal history of urinary (tract) infections; Z98.890 Other specified postprocedural states
CPT/HCPCS: 71046; 80048; 80076; 81001; 82550; 82553; 83690; 83880; 84703; 85025; 93005; 94640; 96374; 99284; J2405

== ENCOUNTER 2019-07-11 15:14 | Emergency (ER) | payer OTHER ==
[~2019-07-11] VITALS: Ht 170.2 cm; Wt 140.1 kg
[2019-07-11 15:16] VITALS: BP 131/84
== END 2019-07-11 15:30 | disposition left against medical advice (07) ==
LOC: M ED 15:14
DX: Z53.21 Procedure and treatment not carried out due to patient leaving prior to being seen by health care provider (principal)

== ENCOUNTER 2019-07-23 15:03 | Emergency (ER) | payer OTHER ==
[~2019-07-23] VITALS: Ht 170.2 cm; Wt 158.6 kg
[2019-07-23] MEDS ORDERED: ONDA4TAB6 (15:21)
[2019-07-23] MEDS ORDERED: NS 1,000 ML IV ONE ×2 (16:00→17:00)
[2019-07-23] MEDS ORDERED: ONDANSETRON 4MG/2ML VIAL (J2405) IV ONE ×2 (16:00→19:15)
[2019-07-23] MEDS ORDERED: diphenhydrAMINE INJ 50MG/ML VIAL (J1200) IV ONE (16:00)
[2019-07-23 16:41] LABS: BASO % 0.2 % (0.0-1.0); EOS # 0.2 10^3/uL (0.0-0.5); EOS % 2.4 % (0.0-3.0); HEMOGLOBIN 10.1 g/dl (12.0-15.5); LYMPH # 2.4 10^3/uL (1.5-5.0); LYMPH % 26.3 % (24.0-44.0); MEAN CORPUSCULAR HEMOGLOBIN 21.8 pg (27.0-33.0); MEAN CORPUSCULAR HGB CONC 28.9 g/dl (32.0-36.5); MEAN CORPUSCULAR VOLUME 75.4 fl (80.0-96.0); MONO # 0.3 10^3/uL (0.0-0.8); MONO % 3.1 % (0.0-5.0); NEUTROPHILS # 6.2 10^3/uL (1.5-8.5); NEUTROPHILS % 67.5 % (36.0-66.0); PLATELET COUNT, AUTOMATED 379 10^3/uL (150-450); RED BLOOD COUNT 4.64 10^6/uL (4.00-5.40); WHITE BLOOD COUNT 9.2 10^3/uL (4.0-10.0)
[2019-07-23] MEDS ORDERED: FAMOTIDINE INJ 20MG/2ML VIAL (S0028) IVP ONE (17:00)
[2019-07-23] MEDS ORDERED: methylPREDNISolone INJ 125 MG/2 ML VIAL (J2930) IV ONE (17:00)
[2019-07-23 17:03] LABS: ALBUMIN 3.1 GM/DL (3.2-5.2); ALT/SGPT 24 U/L (12-78); BILIRUBIN,DIRECT < 0.1 MG/DL (0.0-0.2); BILIRUBIN,TOTAL 0.1 MG/DL (0.2-1.0); LIPASE 106 U/L (73-393); TOTAL PROTEIN 6.9 GM/DL (6.4-8.2)
[2019-07-23] MEDS ORDERED: MORPHINE 2 MG/ML 1ML VIAL (J2270) IV ONE ×2 (17:15→19:15)
[2019-07-23] MEDS ORDERED: LIDOCAINE 2% 5ML JELLY UROJET TOP ONE (17:45)
[2019-07-23] MEDS: fentaNYL 100 MCG/2 ML INJECTION (J3010) IV PRN ×2 (18:25→19:39)
[2019-07-23] MEDS ORDERED: ISOVUE-370 76% 100ML VIAL (Q9967) As Ordered ONE (18:49)
[2019-07-23] MEDS ORDERED: diphenhydrAMINE INJ 50MG/ML VIAL (J1200) IV STA (19:10)
[2019-07-23 19:26] VITALS: BP 135/73
--- NOTE | 2019-07-23 19:26 | REPVR ---
PROCEDURE INFORMATION: Exam: CT Abdomen And Pelvis With Contrast Exam date and time: 07/23/2019 6:55 PM Age: 28 years old Clinical indication: Abdominal pain; Localized; Right lower quadrant (rlq); Additional info: HX of pancreatitis, rlq pain TECHNIQUE: Imaging protocol: Computed tomography of the abdomen and pelvis with intravenous contrast. Radiation optimization: All CT scans at this facility use at least one of these dose optimization techniques: automated exposure control; mA and/or kV adjustment per patient size (includes targeted exams where dose is matched to clinical indication); or iterative reconstruction. Contrast material: ISOVUE 370; Contrast volume: 100 ml; Contrast route: IV; COMPARISON: CT ABD/PEL W/IV CONTRAST ONLY 06/21/2019 3:39 AM FINDINGS: Lungs: Small bilateral noncalcified pulmonary parenchymal nodules measuring up to 4.5 mm in the right lower lobe. Liver: Normal. No mass. Gallbladder and bile ducts: There has been a cholecystectomy. Pancreas: Normal. No ductal dilation. Spleen: There is mild splenomegaly with a maximum span of 14.5 centimeters. No focal abnormalities demonstrated. Adrenals: Normal. No mass. Kidneys and ureters: Normal. No hydronephrosis. Stomach and bowel: Unremarkable. No obstruction. No mucosal thickening. Appendix: The appendix is within normal limits. There is no appendiceal enlargement, periappendiceal inflammatory changes or abscess. Intraperitoneal space: Unremarkable. No free air. No significant fluid collection. Vasculature: Unremarkable. No abdominal aortic aneurysm. Lymph nodes: Unremarkable. No enlarged lymph nodes. Bladder: Unremarkable as visualized. Reproductive: Unremarkable as visualized. Bones/joints: Unremarkable. No acute fracture. Soft tissues: Unremarkable. IMPRESSION: 1. Small bilateral noncalcified pulmonary parenchymal nodules measuring up to 4.5 mm in the right lower lobe. If patient does not have known cancer, follow up should be based on clinical information because of the low risk of cancer in this age group. (Josh, et al., Fleischner Society, 2017) 2. There has been a cholecystectomy. 3. There is mild splenomegaly with a maximum span of 14.5 centimeters. No focal abnormalities demonstrated. 4. The appendix is within normal limits. There is no appendiceal enlargement, periappendiceal inflammatory changes or abscess. Electronically signed by: Reji Ruiz On 07/23/2019 19:26:23 PM
[2019-07-23 20:55] LABS: CHLAMYDIA DNA AMPLIFICATION NEGATIVE (NEGATIVE); GC DNA AMPLIFICATION NEGATIVE (NEGATIVE)
== END 2019-07-23 20:55 | disposition left against medical advice (07) ==
LOC: M ED 15:03 → EDBD 15:03 → CANBEDREQ 18:51 → M ED 20:55
DX: R10.9 Unspecified abdominal pain (principal); R91.8 Other nonspecific abnormal finding of lung field; R16.1 Splenomegaly, not elsewhere classified; F17.200 Nicotine dependence, unspecified, uncomplicated; Z53.20 Procedure and treatment not carried out because of patient's decision for unspecified reasons; Z88.2 Allergy status to sulfonamides; Z88.8 Allergy status to other drugs, medicaments and biological substances; Z87.442 Personal history of urinary calculi
CPT/HCPCS: 74177; 80047; 80076; 81001; 83605; 83690; 84702; 85025; 87040; 87210; 87491; 87591; 93041; 96361; 96374; 96375; 96376; 99285; J1200; J2270; J2405; J2930; J3010; Q9967

== ENCOUNTER 2019-08-05 14:48 | Emergency (ER) | payer OTHER ==
[~2019-08-05] VITALS: Ht 170.2 cm; Wt 159.1 kg
[~2019-08-05 14:48] MED LIST changes: +ONDA4TAB6
[2019-08-05 14:49] VITALS: BP 168/88
[2019-08-05] MEDS ORDERED: OMEP-221 (14:55)
[2019-08-05 15:29] LABS: BASO % 0.4 % (0.0-1.0); EOS # 0.3 10^3/uL (0.0-0.5); EOS % 3.2 % (0.0-3.0); LYMPH % 23.2 % (24.0-44.0); MEAN CORPUSCULAR HEMOGLOBIN 22.1 pg (27.0-33.0); MEAN CORPUSCULAR HGB CONC 29.4 g/dl (32.0-36.5); MEAN CORPUSCULAR VOLUME 75.2 fl (80.0-96.0); MONO # 0.3 10^3/uL (0.0-0.8); MONO % 3.1 % (0.0-5.0); NEUTROPHILS # 5.9 10^3/uL (1.5-8.5); NEUTROPHILS % 69.5 % (36.0-66.0); PLATELET COUNT, AUTOMATED 403 10^3/uL (150-450); RED BLOOD COUNT 4.52 10^6/uL (4.00-5.40); WHITE BLOOD COUNT 8.5 10^3/uL (4.0-10.0)
[2019-08-05 15:49] LABS: HCG, SERUM QUALITATIVE NEGATIVE (NEGATIVE)
[2019-08-05 15:52] LABS: ALBUMIN 3.1 GM/DL (3.2-5.2); ALT/SGPT 25 U/L (12-78); BILIRUBIN,DIRECT < 0.1 MG/DL (0.0-0.2); BILIRUBIN,TOTAL 0.1 MG/DL (0.2-1.0); LIPASE 152 U/L (73-393); TOTAL PROTEIN 6.8 GM/DL (6.4-8.2)
[2019-08-05] MEDS ORDERED: ONDANSETRON 4 MG ORAL DISINTEGRATING TAB (Q0162 PER 1MG) PO ONE (16:15)
[2019-08-05 16:31] LABS: BLOOD UREA NITROGEN 11 MG/DL (7-18); CALCIUM LEVEL 8.6 MG/DL (8.5-10.1); CARBON DIOXIDE LEVEL 27 MEQ/L (21-32); CHLORIDE LEVEL 109 MEQ/L (98-107); CREATININE FOR GFR 0.71 MG/DL (0.55-1.30); GLOMERULAR FILTRATION RATE > 60.0 (>60); GLUCOSE, FASTING 113 MG/DL (70-100); SODIUM LEVEL 141 MEQ/L (136-145)
[2019-08-05 17:05] LABS: CHLAMYDIA DNA AMPLIFICATION NEGATIVE (NEGATIVE); GC DNA AMPLIFICATION NEGATIVE (NEGATIVE)
[2019-08-05 18:28] LABS: CHLAMYDIA DNA AMPLIFICATION NEGATIVE (NEGATIVE); GC DNA AMPLIFICATION NEGATIVE (NEGATIVE)
== END 2019-08-05 17:32 | disposition left against medical advice (07) ==
LOC: M ED 14:48
DX: R10.2 Pelvic and perineal pain (principal); M54.5 Low back pain; N89.8 Other specified noninflammatory disorders of vagina; N73.9 Female pelvic inflammatory disease, unspecified; I10 Essential (primary) hypertension; G43.909 Migraine, unspecified, not intractable, without status migrainosus; J45.909 Unspecified asthma, uncomplicated; E28.2 Polycystic ovarian syndrome; K21.9 Gastro-esophageal reflux disease without esophagitis; F43.10 Post-traumatic stress disorder, unspecified; F60.3 Borderline personality disorder; F17.200 Nicotine dependence, unspecified, uncomplicated; Z88.8 Allergy status to other drugs, medicaments and biological substances; Z88.2 Allergy status to sulfonamides; Z79.899 Other long term (current) drug therapy
CPT/HCPCS: 36415; 80048; 80076; 81001; 83690; 84703; 85025; 87210; 87491; 87591; 87661; 99281; Q0162

== ENCOUNTER → 2019-11-02 | Outpatient (REF) | payer OTHER ==
[~2019-11-02] MED LIST changes: +BACI500O21 TOP; +CYCL-707; +OMEP-221; +OXYC-1 PO; -OXYC15TA76 PO; +OXYCOD/APAP; +VENL75CA47
== END ==
LOC: M SFHCPLAZ 15:20
PROVIDERS: ATTEND Obstetrics & Gynecology
DX: L72.8 Other follicular cysts of the skin and subcutaneous tissue (principal)

== ENCOUNTER 2019-11-12 11:41 | Emergency (ER) | payer OTHER ==
[~2019-11-12] VITALS: Ht 170.2 cm; Wt 158.0 kg
[~2019-11-12 11:41] MED LIST changes: -BACI500O21 TOP; -CYCL-707; -OXYCOD/APAP; -VENL75CA47
[2019-11-12] MEDS ORDERED: CYCL-707 PO (11:51)
[2019-11-12] MEDS ORDERED: VENL75CA47 PO (11:51)
[2019-11-12] MEDS ORDERED: OXYCOD/APAP (11:51)
[2019-11-12] MEDS: PERCOCET 5MG/325MG TAB PO ONE (13:35)
[2019-11-12] MEDS ORDERED: OXYC1TAB23 PO (14:08)
[2019-11-12] MEDS ORDERED: KEFL500C17 PO (14:08)
[2019-11-12] MEDS ORDERED: BACI500O21 TOP (14:09)
[2019-11-12 14:19] VITALS: BP 135/72
[2019-11-12] MEDS: NEOSPORIN TOP OINT 15GM TOP ONE (14:22)
== END 2019-11-12 14:26 | disposition home or self-care (01) ==
LOC: M ED 11:41
DX: K08.89 Other specified disorders of teeth and supporting structures (principal); Z48.02 Encounter for removal of sutures; M54.5 Low back pain; F17.210 Nicotine dependence, cigarettes, uncomplicated; G43.909 Migraine, unspecified, not intractable, without status migrainosus; I10 Essential (primary) hypertension; J45.909 Unspecified asthma, uncomplicated; K21.9 Gastro-esophageal reflux disease without esophagitis; E28.2 Polycystic ovarian syndrome; F41.9 Anxiety disorder, unspecified; F32.9 Major depressive disorder, single episode, unspecified; F43.10 Post-traumatic stress disorder, unspecified; F60.3 Borderline personality disorder; Z88.2 Allergy status to sulfonamides; Z88.6 Allergy status to analgesic agent; Z88.8 Allergy status to other drugs, medicaments and biological substances; Z79.899 Other long term (current) drug therapy

== ENCOUNTER 2019-12-01 15:14 | Emergency (ER) | payer OTHER ==
[~2019-12-01] VITALS: Ht 170.2 cm; Wt 159.5 kg
[~2019-12-01 15:14] MED LIST changes: +BACI500O21 TOP; +CYCL-707 PO; +OXYCOD/APAP; +VENL75CA47 PO
[2019-12-01] MEDS ORDERED: CLINDAMYCIN 150MG CAPSULE PO ONE (17:15)
[2019-12-01] MEDS ORDERED: NORCO, ANEXSIA 5/325MG TABLET (HYDROcodone/ACETAMINOPHEN) PO ONE (17:15)
[2019-12-01 17:34] LABS: HEMATOCRIT 35.1 % (36.0-47.0); HEMOGLOBIN 10.1 g/dl (12.0-15.5); MEAN CORPUSCULAR HEMOGLOBIN 21.7 pg (27.0-33.0); MEAN CORPUSCULAR HGB CONC 28.8 g/dl (32.0-36.5); MEAN CORPUSCULAR VOLUME 75.3 fl (80.0-96.0); PLATELET COUNT, AUTOMATED 435 10^3/uL (150-450); RED BLOOD COUNT 4.66 10^6/uL (4.00-5.40); WHITE BLOOD COUNT 6.9 10^3/uL (4.0-10.0)
[2019-12-01 17:43] LABS: BASOPHILS 1 % (0-1); EOSINOPHILS 2 % (0-3); LYMPHOCYTES 34 % (16-44); MONOCYTES 1 % (0-5); NEUTROPHILS 62 % (28-66); PLATELET ESTIMATE NORMAL (NORMAL)
[2019-12-01 17:44] LABS: POIKILOCYTOSIS 1+; POLYCHROMASIA 1+
[2019-12-01 17:45] LABS: ANISOCYTOSIS 2+; MICROCYTOSIS 2+
[2019-12-01 17:54] LABS: ERYTHROCYTE SEDIMENTATION RATE 49 mm/hr (0-20)
[2019-12-01] MEDS ORDERED: CLEO300C2 PO (18:00)
[2019-12-01] MEDS ORDERED: HYDR-3715 PO (18:00)
[2019-12-01] MEDS ORDERED: DIFL150T PO (18:02)
[2019-12-01 18:06] VITALS: BP 142/79
== END 2019-12-01 18:10 | disposition home or self-care (01) ==
LOC: M ED 15:14
DX: K08.89 Other specified disorders of teeth and supporting structures (principal)

== ENCOUNTER 2019-12-11 18:52 | Emergency (ER) | payer OTHER ==
[~2019-12-11] VITALS: Ht 170.2 cm; Wt 159.6 kg
[2019-12-11] MEDS ORDERED: LIDOCAINE VISCOUS 2% SOLN 15ML UDC SSP ONE (19:30)
[2019-12-11] MEDS ORDERED: NS 1,000 ML IV ONE (19:30)
[2019-12-11] MEDS ORDERED: ONDANSETRON 4MG/2ML VIAL IV ONE (19:30)
[2019-12-11 20:01] LABS: BASO # 0.1 10^3/uL (0.0-0.2); BASO % 0.5 % (0.0-1.0); EOS # 0.3 10^3/uL (0.0-0.5); HEMATOCRIT 34.3 % (36.0-47.0); LYMPH # 2.7 10^3/uL (1.5-5.0); LYMPH % 25.8 % (24.0-44.0); MEAN CORPUSCULAR HGB CONC 29.2 g/dl (32.0-36.5); MEAN CORPUSCULAR VOLUME 75.6 fl (80.0-96.0); MONO # 0.4 10^3/uL (0.0-0.8); MONO % 3.8 % (0.0-5.0); NEUTROPHILS % 66.2 % (36.0-66.0); PLATELET COUNT, AUTOMATED 458 10^3/uL (150-450); RED BLOOD COUNT 4.54 10^6/uL (4.00-5.40); WHITE BLOOD COUNT 10.5 10^3/uL (4.0-10.0)
[2019-12-11] MEDS ORDERED: ISOVUE-370 76% 100ML VIAL As Ordered ONE (20:08)
--- NOTE | 2019-12-11 20:39 | REPVR ---
PROCEDURE INFORMATION: Exam: CT Maxillofacial With Contrast Exam date and time: 12/11/2019 8:18 PM Age: 29 years old Clinical indication: Jaw pain; Additional info: Possible dental abscess that is worsening with antibiotic tx TECHNIQUE: Imaging protocol: Computed tomography images of the face with intravenous contrast. Radiation optimization: All CT scans at this facility use at least one of these dose optimization techniques: automated exposure control; mA and/or kV adjustment per patient size (includes targeted exams where dose is matched to clinical indication); or iterative reconstruction. Contrast material: ISO 370; Contrast volume: 75 ml; Contrast route: INTRAVENOUS (IV); COMPARISON: CT Maxilofacial w/out contrast 11/20/2018 5:41 PM FINDINGS: Orbits: Orbits are normal. Globes are unremarkable. Bones/joints: No acute fracture. Sinuses: Normal. No air-fluid levels. Nasal cavity: Bilateral enzo bullosa. Dental: Edentulous alveolar process of the left maxilla. Soft tissues: Collection of air demonstrated adjacent to the posterior of the lower ridge on the left. Clinical correlation to exclude abscess suggested. IMPRESSION: Collection of air demonstrated adjacent to the posterior of the lower ridge on the left. Clinical correlation to exclude abscess suggested. Electronically signed by: Reji Ruiz On 12/11/2019 20:39:30 PM
[2019-12-11] MEDS ORDERED: MORPHINE 4 MG/ML 1ML VIAL/SYRINGE (J2270) IV ONE (21:15)
[2019-12-11] MEDS ORDERED: LIDO2SOL17 PO (21:17)
[2019-12-11 21:21] VITALS: BP 158/67
[2019-12-11] MEDS ORDERED: NORCO 5/325MG TABLET (BULK FOR ED) PO ONE (21:30)
[2019-12-11 21:44] LABS: ERYTHROCYTE SEDIMENTATION RATE 56 mm/hr (0-20)
== END 2019-12-11 21:32 | disposition home or self-care (01) ==
LOC: M ED 18:52
DX: K05.319 Chronic periodontitis, localized, unspecified severity (principal); E28.2 Polycystic ovarian syndrome; M79.7 Fibromyalgia; Z79.899 Other long term (current) drug therapy; Z88.1 Allergy status to other antibiotic agents; Z88.2 Allergy status to sulfonamides; Z88.8 Allergy status to other drugs, medicaments and biological substances; F17.210 Nicotine dependence, cigarettes, uncomplicated
CPT/HCPCS: 70487; 80047; 83605; 85025; 85652; 86140; 87040; 96361; 96374; 96375; 99284; J2270; J2405; Q9967

== ENCOUNTER 2019-12-17 18:19 | Emergency (ER) | payer OTHER ==
[~2019-12-17] VITALS: Ht 170.2 cm; Wt 160.7 kg
[~2019-12-17 18:19] MED LIST changes: +LIDO2SOL17 PO
[2019-12-17] MEDS ORDERED: ONDANSETRON 4 MG ORAL DISINTEGRATING TAB PO ONE (19:00)
[2019-12-17] MEDS ORDERED: traMADol 50 MG TAB (BULK 4 TAB ED) PO ONE (19:30)
[2019-12-17] MEDS ORDERED: TRAM50TA2 PO (19:30)
[2019-12-17 19:39] VITALS: BP 125/66
== END 2019-12-17 19:51 | disposition home or self-care (01) ==
LOC: M ED 18:19
DX: G89.18 Other acute postprocedural pain (principal); Z98.818 Other dental procedure status; F17.218 Nicotine dependence, cigarettes, with other nicotine-induced disorders; Z88.2 Allergy status to sulfonamides; Z88.8 Allergy status to other drugs, medicaments and biological substances
CPT/HCPCS: 99283; Q0162

== ENCOUNTER 2019-12-22 17:02 | Emergency (ER) | payer OTHER ==
[~2019-12-22] VITALS: Ht 170.2 cm; Wt 162.0 kg
[2019-12-22 17:02] VITALS: BP 179/81
[~2019-12-22 17:02] MED LIST changes: +ACET650T61 PO; -ALL10TAB29 PO; +CETI-24 PO; -TYLE650T35 PO
[2019-12-22] MEDS ORDERED: TRAZ-252 (17:23)
[2019-12-22] MEDS ORDERED: NORCO, ANEXSIA 5/325MG TABLET (HYDROcodone/ACETAMINOPHEN) PO ONE (17:45)
[2019-12-22] MEDS ORDERED: ONDANSETRON 4 MG ORAL DISINTEGRATING TAB PO ONE (17:45)
[2019-12-22] MEDS ORDERED: NORC1TAB7 PO (17:49)
[2019-12-22] MEDS ORDERED: ANBE20GE TOP (17:49)
[2019-12-22] MEDS ORDERED: REGL5TAB2 PO (17:49)
== END 2019-12-22 18:05 | disposition home or self-care (01) ==
LOC: M ED 17:02
DX: S02.5XXA Fracture of tooth (traumatic), initial encounter for closed fracture (principal); Y92.9 Unspecified place or not applicable; Y93.9 Activity, unspecified; Y99.9 Unspecified external cause status; W27.8XXA Contact with other nonpowered hand tool, initial encounter; K08.89 Other specified disorders of teeth and supporting structures; K21.9 Gastro-esophageal reflux disease without esophagitis; J45.909 Unspecified asthma, uncomplicated; Z79.899 Other long term (current) drug therapy; Z88.2 Allergy status to sulfonamides; Z88.6 Allergy status to analgesic agent; Z88.8 Allergy status to other drugs, medicaments and biological substances
CPT/HCPCS: 99283; Q0162

== ENCOUNTER 2020-01-04 13:06 | Emergency (ER) | payer OTHER ==
[~2020-01-04] VITALS: Ht 170.2 cm; Wt 156.2 kg
[~2020-01-04 13:06] MED LIST changes: +ANBE20GE TOP; +REGL5TAB2 PO; +TRAZ-252
[2020-01-04] MEDS ORDERED: LIDOCAINE VISCOUS 2% SOLN 15ML UDC SSP ONE (14:45)
[2020-01-04] MEDS ORDERED: ACETAMINOPHEN 500 MG TAB PO ONE (14:45)
[2020-01-04] MEDS ORDERED: BENZOCAINE 20% GEL 9GM TUBE (ANBESOL MAX STRENGTH) TOP ONE (14:45)
[2020-01-04] MEDS ORDERED: MAGICMW SSP (15:11)
[2020-01-04 15:19] VITALS: BP 180/103
== END 2020-01-04 15:20 | disposition home or self-care (01) ==
LOC: M ED 13:06
DX: S02.5XXA Fracture of tooth (traumatic), initial encounter for closed fracture (principal); X58.XXXA Exposure to other specified factors, initial encounter; Y92.89 Other specified places as the place of occurrence of the external cause; K21.9 Gastro-esophageal reflux disease without esophagitis; M79.7 Fibromyalgia; Z79.899 Other long term (current) drug therapy; Z88.1 Allergy status to other antibiotic agents; Z88.2 Allergy status to sulfonamides; Z88.8 Allergy status to other drugs, medicaments and biological substances; F17.210 Nicotine dependence, cigarettes, uncomplicated

== ENCOUNTER 2020-02-05 12:58 | Emergency (ER) | payer OTHER ==
[~2020-02-05] VITALS: Ht 170.2 cm; Wt 154.4 kg
[2020-02-05 12:59] VITALS: BP 180/70
[2020-02-05 13:47] LABS: BASO % 0.4 % (0.0-1.0); EOS # 0.4 10^3/uL (0.0-0.5); EOS % 4.6 % (0.0-3.0); HEMATOCRIT 38.2 % (36.0-47.0); HEMOGLOBIN 10.8 g/dl (12.0-15.5); LYMPH # 2.6 10^3/uL (1.5-5.0); LYMPH % 27.1 % (24.0-44.0); MEAN CORPUSCULAR HEMOGLOBIN 21.4 pg (27.0-33.0); MEAN CORPUSCULAR HGB CONC 28.3 g/dl (32.0-36.5); MEAN CORPUSCULAR VOLUME 75.6 fl (80.0-96.0); MONO # 0.3 10^3/uL (0.0-0.8); MONO % 3.1 % (0.0-5.0); NEUTROPHILS # 6.1 10^3/uL (1.5-8.5); NEUTROPHILS % 64.3 % (36.0-66.0); PLATELET COUNT, AUTOMATED 508 10^3/uL (150-450); RED BLOOD COUNT 5.05 10^6/uL (4.00-5.40); WHITE BLOOD COUNT 9.5 10^3/uL (4.0-10.0)
[2020-02-05] MEDS ORDERED: ONDANSETRON 4MG/2ML VIAL IV ONE (14:00)
[2020-02-05] MEDS ORDERED: KETOROLAC 30 MG/ML 1ML VIAL IV ONE (14:00)
[2020-02-05] MEDS ORDERED: NS 1,000 ML IV ONE (14:00)
[2020-02-05 14:31] LABS: ALBUMIN 3.5 GM/DL (3.2-5.2); BILIRUBIN,DIRECT 0.1 MG/DL (0.0-0.2); BILIRUBIN,TOTAL 0.3 MG/DL (0.2-1.0); TOTAL PROTEIN 7.7 GM/DL (6.4-8.2)
[2020-02-05] MEDS ORDERED: ACETAMINOPHEN 500 MG TAB PO ONE (15:00)
--- NOTE | 2020-03-08 15:37 | REP ---
PELVIC SONOGRAPHY HISTORY: Pelvic pain. COMPARISON: Pelvic sonography 03/31/2019. FINDINGS: Transabdominal and transvaginal scanning are included. The bladder is not well filled. The uterine dimensions are normal at 7.9 x 3.7 x 4.1 cm. Endometrial echo is 0.2 cm. no free fluid is seen. No focal uterine mass is observed. Neither ovary could be identified transabdominally or transvaginally. No adnexal mass or cyst is seen. IMPRESSION: Normal size uterus. Neither ovary is directly visualized, but no evidence of adnexal mass or free fluid. MTDD
== END 2020-02-05 16:09 | disposition left against medical advice (07) ==
LOC: M ED 12:58
DX: R10.9 Unspecified abdominal pain (principal); R11.2 Nausea with vomiting, unspecified; I10 Essential (primary) hypertension; K21.9 Gastro-esophageal reflux disease without esophagitis; J45.909 Unspecified asthma, uncomplicated; M79.7 Fibromyalgia; F43.10 Post-traumatic stress disorder, unspecified; G43.909 Migraine, unspecified, not intractable, without status migrainosus; E28.2 Polycystic ovarian syndrome; N80.0 Endometriosis of uterus; Z88.6 Allergy status to analgesic agent; Z88.2 Allergy status to sulfonamides; Z88.8 Allergy status to other drugs, medicaments and biological substances; Z88.5 Allergy status to narcotic agent; Z79.899 Other long term (current) drug therapy
CPT/HCPCS: 76830; 76856; 80047; 80076; 81001; 83690; 84702; 85025; 96374; 99283; J2405

== ENCOUNTER 2020-02-11 22:39 | Emergency (ER) | payer OTHER ==
[2020-02-11] MEDS ORDERED: NS 1,000 ML IV ONE (23:30)
[2020-02-11] MEDS ORDERED: HALOPERIDOL 5MG/ML VIAL (J1630 PER 1) IV ONE (23:30)
[2020-02-12 00:16] VITALS: BP 146/85
[2020-02-12 00:26] LABS: HEMATOCRIT 35.9 % (36.0-47.0); HEMOGLOBIN 10.4 g/dl (12.0-15.5); MEAN CORPUSCULAR HEMOGLOBIN 21.8 pg (27.0-33.0); MEAN CORPUSCULAR VOLUME 75.4 fl (80.0-96.0); PLATELET COUNT, AUTOMATED 512 10^3/uL (150-450); RED BLOOD COUNT 4.76 10^6/uL (4.00-5.40); WHITE BLOOD COUNT 16.1 10^3/uL (4.0-10.0)
[2020-02-12] MEDS ORDERED: PROMETHAZINE INJ 25 MG/ML VIAL (J2550) As Ordered ONE (00:29)
[2020-02-12] MEDS ORDERED: PROMETHAZINE INJ 25 MG/ML VIAL (J2550) IV ONE (00:30)
[2020-02-12 00:54] LABS: ALBUMIN 3.4 GM/DL (3.2-5.2); ALT/SGPT 24 U/L (12-78); BILIRUBIN,DIRECT < 0.1 MG/DL (0.0-0.2); BILIRUBIN,TOTAL 0.2 MG/DL (0.2-1.0); BLOOD UREA NITROGEN 7 MG/DL (7-18); CALCIUM LEVEL 8.6 MG/DL (8.5-10.1); CARBON DIOXIDE LEVEL 29 MEQ/L (21-32); CHLORIDE LEVEL 106 MEQ/L (98-107); CREATININE FOR GFR 0.77 MG/DL (0.55-1.30); GLOMERULAR FILTRATION RATE > 60.0 (>60); GLUCOSE, FASTING 105 MG/DL (70-100); HCG, SERUM QUANTITATIVE < 1.0 MIU/ML; LIPASE 80 U/L (73-393); POTASSIUM SERUM 3.8 MEQ/L (3.5-5.1); SODIUM LEVEL 141 MEQ/L (136-145); TOTAL PROTEIN 7.6 GM/DL (6.4-8.2)
[2020-02-12 00:57] LABS: BILIRUBIN, URINE MANUAL NEGATIVE (NEGATIVE); GLUCOSE, URINE (UA) MANUAL 2+(250 MG/DL) mg/dL (NEGATIVE); KETONE, URINE MANUAL NEGATIVE (NEGATIVE); UROBILINOGEN, URINE MANUAL NORMAL (NORMAL)
[2020-02-12 01:14] LABS: EOSINOPHILS 1 % (0-3); LYMPHOCYTES 26 % (16-44); MONOCYTES 3 % (0-5); NEUTROPHILS 70 % (28-66); PLATELET ESTIMATE INCREASED (NORMAL)
[2020-02-12 01:15] LABS: ANISOCYTOSIS 1+; HYPOCHROMASIA 1+; MICROCYTOSIS 1+
[2020-02-12 01:18] LABS: BACTERIA, URINE SMALL AMOUNT; RBC, URINE TNTC /hpf (0-3); SQUAMOUS EPITHELIAL CELL URINE MOD AMOUNT /hpf (SMALL AMT)
[2020-02-12 01:19] LABS: AMORPHOUS SEDIMENT, URINE SMALL AMOUNT (NEGATIVE); HYALINE CAST, URINE NONE SEEN /lpf (0-1); MUCUS, URINE SMALL AMOUNT (NEGATIVE)
[2020-02-12] MEDS ORDERED: ISOVUE-370 76% 100ML VIAL As Ordered ONE (01:34)
== END 2020-02-12 02:36 | disposition left against medical advice (07) ==
LOC: M ED 22:39
DX: Z76.5 Malingerer [conscious simulation] (principal); R10.31 Right lower quadrant pain; G89.29 Other chronic pain; I10 Essential (primary) hypertension; K21.9 Gastro-esophageal reflux disease without esophagitis; M79.7 Fibromyalgia; E28.2 Polycystic ovarian syndrome; F43.10 Post-traumatic stress disorder, unspecified; F60.3 Borderline personality disorder; F17.210 Nicotine dependence, cigarettes, uncomplicated; Z88.8 Allergy status to other drugs, medicaments and biological substances; Z88.2 Allergy status to sulfonamides; Z88.5 Allergy status to narcotic agent; Z79.899 Other long term (current) drug therapy

== ENCOUNTER 2020-03-11 11:55 | Emergency (ER) | payer OTHER ==
[~2020-03-11] VITALS: Ht 170.2 cm; Wt 156.1 kg
[2020-03-11 11:56] VITALS: BP 134/81
[2020-03-11] MEDS ORDERED: HYDR-3713 PO (12:23)
[2020-03-11] MEDS ORDERED: NORCO, ANEXSIA 5/325MG TABLET (HYDROcodone/ACETAMINOPHEN) PO ONE (12:30)
[2020-03-11] MEDS ORDERED: NORC1TAB7 PO (12:31)
== END 2020-03-11 12:40 | disposition home or self-care (01) ==
LOC: M ED 11:55
DX: K06.8 Other specified disorders of gingiva and edentulous alveolar ridge (principal); K08.109 Complete loss of teeth, unspecified cause, unspecified class; I10 Essential (primary) hypertension; F17.200 Nicotine dependence, unspecified, uncomplicated; J45.909 Unspecified asthma, uncomplicated; M79.7 Fibromyalgia; Z79.899 Other long term (current) drug therapy; Z88.1 Allergy status to other antibiotic agents; Z88.6 Allergy status to analgesic agent; Z88.8 Allergy status to other drugs, medicaments and biological substances

== ENCOUNTER 2020-03-13 09:47 | Emergency (ER) | payer OTHER ==
[~2020-03-13] VITALS: Ht 170.2 cm; Wt 155.8 kg
[2020-03-13 09:48] VITALS: BP 147/82
== END 2020-03-13 11:11 | disposition left against medical advice (07) ==
LOC: M ED 09:47
DX: K08.89 Other specified disorders of teeth and supporting structures (principal); M54.9 Dorsalgia, unspecified; G89.29 Other chronic pain; F17.200 Nicotine dependence, unspecified, uncomplicated; Z79.899 Other long term (current) drug therapy; Z88.8 Allergy status to other drugs, medicaments and biological substances; Z88.2 Allergy status to sulfonamides; Z98.890 Other specified postprocedural states

== ENCOUNTER 2020-04-08 17:29 | Emergency (ER) | payer OTHER ==
[~2020-04-08] VITALS: Ht 170.2 cm; Wt 163.6 kg
[2020-04-08 17:32] VITALS: BP 134/90
[2020-04-08 18:04] LABS: BASO % 0.3 % (0.0-1.0); EOS # 0.3 10^3/uL (0.0-0.5); EOS % 2.4 % (0.0-3.0); HEMATOCRIT 35.3 % (36.0-47.0); HEMOGLOBIN 9.8 g/dl (12.0-15.5); LYMPH # 2.9 10^3/uL (1.5-5.0); LYMPH % 25.4 % (24.0-44.0); MEAN CORPUSCULAR HEMOGLOBIN 20.6 pg (27.0-33.0); MEAN CORPUSCULAR HGB CONC 27.8 g/dl (32.0-36.5); MEAN CORPUSCULAR VOLUME 74.2 fl (80.0-96.0); MONO # 0.3 10^3/uL (0.0-0.8); MONO % 2.7 % (0.0-5.0); NEUTROPHILS # 7.8 10^3/uL (1.5-8.5); NEUTROPHILS % 68.8 % (36.0-66.0); PLATELET COUNT, AUTOMATED 463 10^3/uL (150-450); RED BLOOD COUNT 4.76 10^6/uL (4.00-5.40); WHITE BLOOD COUNT 11.4 10^3/uL (4.0-10.0)
[2020-04-08] MEDS ORDERED: NS 1,000 ML IV ONE (18:30)
[2020-04-08] MEDS ORDERED: MORPHINE 4 MG/ML 1ML VIAL/SYRINGE (J2270) IV ONE (18:30)
[2020-04-08] MEDS ORDERED: ONDANSETRON 4MG/2ML VIAL IV ONE ×2 (18:30→20:30)
[2020-04-08 18:37] LABS: ALBUMIN 3.2 GM/DL (3.2-5.2); ALT/SGPT 19 U/L (12-78); BILIRUBIN,DIRECT < 0.1 MG/DL (0.0-0.2); BILIRUBIN,TOTAL 0.2 MG/DL (0.2-1.0); LIPASE 145 U/L (73-393); TOTAL PROTEIN 7.3 GM/DL (6.4-8.2)
[2020-04-08] MEDS ORDERED: diphenhydrAMINE 50MG/ML VIAL (J1200) IV STA (20:00)
--- NOTE | 2020-04-08 20:44 | REPVR ---
PROCEDURE INFORMATION: Exam: US Pelvis Complete, Transabdominal and US Pelvis, Transvaginal Exam date and time: 04/08/2020 8:03 PM Age: 29 years old Clinical indication: Pelvic pain; Additional info: Rlq pain, heavy vaginal bleeding TECHNIQUE: Imaging protocol: Real-time transabdominal and transvaginal pelvic ultrasound (complete) with image documentation. Transvaginal imaging was used for better evaluation of the endometrium, adnexa, and/or cervix. COMPARISON: US PELVIC NON-OB COMPLETE 02/05/2020 2:26 PM FINDINGS: Uterus/cervix: The anteverted uterus is normal in appearance. No myometrial mass is noted. The endometrial stripe is normal in appearance. Incidental note is made of small nabothian cysts in the cervix measuring up to 12 mm. Right adnexa: The right ovary was not visualized due to obscuration by intestinal gas. Left adnexa: The left ovary was not visualized due to obscuration by intestinal gas. Intraperitoneal space: No free fluid is seen from the images obtained. Urinary bladder: The partially distended urinary bladder is unremarkable. Uterus size: 8.4 cm x 4 cm x 4 cm Endometrial stripe thickness: 8 mm IMPRESSION: 1. Essentially normal ultrasound of the uterus. 2. Ovaries not visualized. Electronically signed by: Ruddy Burgos On 04/08/2020 20:44:39 PM
[2020-04-08] MEDS: ACETAMINOPHEN 500 MG TAB PO ONE ×2 (20:49→20:59)
[2020-04-08] MEDS ORDERED: ISOVUE-370 76% 100ML VIAL As Ordered ONE (20:55)
== END 2020-04-08 21:27 | disposition left against medical advice (07) ==
LOC: M ED 17:29
DX: N93.9 Abnormal uterine and vaginal bleeding, unspecified (principal); R10.31 Right lower quadrant pain; R11.0 Nausea; Z87.42 Personal history of other diseases of the female genital tract; I10 Essential (primary) hypertension; J45.909 Unspecified asthma, uncomplicated; K21.9 Gastro-esophageal reflux disease without esophagitis; Z87.19 Personal history of other diseases of the digestive system; F99 Mental disorder, not otherwise specified; Z87.442 Personal history of urinary calculi; F17.200 Nicotine dependence, unspecified, uncomplicated
CPT/HCPCS: 36415; 76830; 76856; 80047; 80076; 81001; 83690; 84702; 85025; 96361; 96374; 96375; 96376; 99284; J1200; J2270; J2405

== ENCOUNTER 2020-04-20 14:07 | Emergency (ER) | payer OTHER ==
[~2020-04-20] VITALS: Ht 170.2 cm; Wt 150.1 kg
[2020-04-20 14:09] VITALS: BP 132/82
[2020-04-20] MEDS ORDERED: TRAM50TA2 PO (15:06)
[2020-04-20] MEDS ORDERED: PENI500T PO (15:06)
[2020-04-20] MEDS ORDERED: traMADol 50 MG TAB PO ONE (15:15)
== END 2020-04-20 15:23 | disposition home or self-care (01) ==
LOC: M ED 14:07
DX: R68.84 Jaw pain (principal); K05.319 Chronic periodontitis, localized, unspecified severity; E11.9 Type 2 diabetes mellitus without complications; I10 Essential (primary) hypertension; G43.909 Migraine, unspecified, not intractable, without status migrainosus; M79.7 Fibromyalgia; J45.909 Unspecified asthma, uncomplicated; K21.9 Gastro-esophageal reflux disease without esophagitis; E28.2 Polycystic ovarian syndrome; F41.9 Anxiety disorder, unspecified; F32.9 Major depressive disorder, single episode, unspecified; F43.10 Post-traumatic stress disorder, unspecified; F60.3 Borderline personality disorder; Z88.2 Allergy status to sulfonamides; Z88.6 Allergy status to analgesic agent; Z88.8 Allergy status to other drugs, medicaments and biological substances; Z79.899 Other long term (current) drug therapy

== ENCOUNTER 2020-06-17 11:01 | Emergency (ER) | payer OTHER ==
[~2020-06-17] VITALS: Ht 170.2 cm; Wt 136.2 kg
[~2020-06-17 11:01] MED LIST changes: +PENI500T PO; -PHEN-593 PO; +PHEN1TAB73 PO
[2020-06-17] MEDS ORDERED: LORazepam 1 MG TAB PO STA (11:09)
[2020-06-17] MEDS ORDERED: LORazepam 2 MG/ML VIAL IM STA (12:26)
[2020-06-17 15:12] VITALS: BP 143/56
== END 2020-06-17 15:15 | disposition home or self-care (01) ==
LOC: M ED 11:01
DX: F15.920 Other stimulant use, unspecified with intoxication, uncomplicated (principal); F43.10 Post-traumatic stress disorder, unspecified; J45.909 Unspecified asthma, uncomplicated; G43.909 Migraine, unspecified, not intractable, without status migrainosus; M54.9 Dorsalgia, unspecified; G89.29 Other chronic pain; M79.7 Fibromyalgia; F17.200 Nicotine dependence, unspecified, uncomplicated; Z88.8 Allergy status to other drugs, medicaments and biological substances; Z88.2 Allergy status to sulfonamides; Z88.5 Allergy status to narcotic agent; Z79.899 Other long term (current) drug therapy
CPT/HCPCS: 96372; 99283; J2060

== ENCOUNTER 2020-10-19 05:20 | Inpatient (IN) | payer OTHER ==
[~2020-10-19] VITALS: Ht 170.2 cm; Wt 114.4 kg
[2020-10-19] MEDS ORDERED: CEFTAROLINE FOSAMIL 600 MG in D5W MINI-BAG PLUS 50 ML IV ONE (05:50)
[2020-10-19 06:06] LABS: HCG, SERUM QUALITATIVE NEGATIVE (NEGATIVE)
[2020-10-19 06:07] LABS: BASO # 0.1 10^3/uL (0.0-0.2); BASO % 0.3 % (0.0-1.0); EOS # 0.1 10^3/uL (0.0-0.5); EOS % 0.7 % (0.0-3.0); HEMATOCRIT 36.4 % (36.0-47.0); LYMPH % 11.1 % (24.0-44.0); MEAN CORPUSCULAR HEMOGLOBIN 23.2 pg (27.0-33.0); MEAN CORPUSCULAR HGB CONC 30.2 g/dl (32.0-36.5); MEAN CORPUSCULAR VOLUME 76.6 fl (80.0-96.0); MONO # 0.6 10^3/uL (0.0-0.8); MONO % 3.2 % (2.0-8.0); NEUTROPHILS # 15.3 10^3/uL (1.5-8.5); PLATELET COUNT, AUTOMATED 414 10^3/uL (150-450); RED BLOOD COUNT 4.75 10^6/uL (4.00-5.40); WHITE BLOOD COUNT 18.2 10^3/uL (4.0-10.0)
[2020-10-19 06:10] LABS: ALBUMIN 2.4 GM/DL (3.2-5.2); ALT/SGPT 19 U/L (12-78); BILIRUBIN,DIRECT 0.2 MG/DL (0.0-0.2); BILIRUBIN,TOTAL 0.4 MG/DL (0.2-1.0); BLOOD UREA NITROGEN 6 MG/DL (7-18); CALCIUM LEVEL 8.3 MG/DL (8.5-10.1); CARBON DIOXIDE LEVEL 27 MEQ/L (21-32); CHLORIDE LEVEL 101 MEQ/L (98-107); CREATININE FOR GFR 0.63 MG/DL (0.55-1.30); GLOMERULAR FILTRATION RATE > 60.0 (>60); GLUCOSE, FASTING 97 MG/DL (70-100); POTASSIUM SERUM 3.9 MEQ/L (3.5-5.1); SODIUM LEVEL 134 MEQ/L (136-145); TOTAL PROTEIN 7.1 GM/DL (6.4-8.2)
[2020-10-19] MEDS: HYDROMORPHONE HCL 0.5 MG/ 0.5 ML SYRINGE (J1170 PER 1) IV PRN ×2 (06:21→08:00)
[2020-10-19] MEDS ORDERED: SOMA350T PO (06:35)
[2020-10-19] MEDS ORDERED: TRAZ1TAB14 PO (06:35)
[2020-10-19] MEDS ORDERED: ACET-897 PO (06:35)
[2020-10-19] MEDS ORDERED: CLON0.2T PO (06:35)
[2020-10-19 06:43] LABS: ERYTHROCYTE SEDIMENTATION RATE 49 mm/hr (0-20)
--- NOTE | 2020-10-19 07:21 | REPVR ---
PROCEDURE INFORMATION: Exam: XR Chest Exam date and time: 10/19/2020 6:42 AM Age: 29 years old Clinical indication: Other: Preop TECHNIQUE: Imaging protocol: XR of the chest. Views: 1 view. COMPARISON: CR Chest, 2 view PA, Lat 06/26/2019 8:29 AM FINDINGS: Lungs: Unremarkable. No consolidation. Pleural spaces: Unremarkable. No pleural effusion. No pneumothorax. Heart/Mediastinum: Unremarkable. No cardiomegaly. Bones/joints: Unremarkable. IMPRESSION: No acute findings. Electronically signed by: Zack Leong On 10/19/2020 07:21:35 AM
--- NOTE | 2020-10-19 07:44 | REPVR ---
PROCEDURE INFORMATION: Exam: US Left Breast Limited; Cellulitis or Abscess Evaluation US Right Breast Limited; Cellulitis or Abscess Evaluation Exam date and time: 10/19/2020 6:51 AM Age: 29 years old Clinical indication: Breast pain; Bilateral; Additional info: Abscess, bilateral breast TECHNIQUE: Imaging protocol: Left breast ultrasound. Exam limited to the quadrant(s) of clinical concern. Exam focused on the evaluation of cellulitis or abscess. Exam is an emergent request and a non-BIRADS study. Right breast ultrasound. Exam limited to the quadrant(s) of clinical concern. Exam focused on the evaluation of cellulitis or abscess. Exam is an emergent request and a non-BIRADS study. COMPARISON: US Breast(s) Unilat or Bilat 11/14/2013 5:38 PM FINDINGS: Breast: Subcutaneous edema seen throughout the right breast with and irregular heterogeneous collection measuring 4.7 x 3.2 x 2.3 cm in the upper outer quadrant. Subcutaneous edema seen in the left breast with and irregular heterogeneous collection measuring 3.8 x 4.2 x 1.6 centimetres in the upper outer quadrant. IMPRESSION: Bilateral breast subcutaneous edema with heterogeneous ill-defined collections in the upper outer quadrants measuring 4.7 x 3.2 x 2.3 cm on the right and 3.8 x 4.2 x 1.6 cm on the left . Findings are suggestive of mastitis with breast abscesses. Although malignancy is unlikely it cannot be excluded on this exam. Further evaluation and follow-up is suggested. ASSESSMENT: BI-RADS 0 pending clinical evaluation, correlation and follow-up. Electronically signed by: Zack Leong On 10/19/2020 07:44:13 AM
[2020-10-19] MEDS: OMEPRAZOLE 20 MG CAP PO SCH (09:00)
[2020-10-19] MEDS ORDERED: ACETAMINOPHEN TAB 650MG DOSE (2X325MG) PO PRN (10:20)
[2020-10-19] MEDS ORDERED: VANCOMYCIN HCL 1,000 MG, VIAL MATE ADAPTER 1 EACH in NS 250 ML IV SCH (11:15)
[2020-10-19 11:23] LABS: HEMATOCRIT 35.9 % (36.0-47.0); HEMOGLOBIN 10.7 g/dl (12.0-15.5); MEAN CORPUSCULAR HEMOGLOBIN 23.1 pg (27.0-33.0); MEAN CORPUSCULAR HGB CONC 29.8 g/dl (32.0-36.5); MEAN CORPUSCULAR VOLUME 77.5 fl (80.0-96.0); PLATELET COUNT, AUTOMATED 380 10^3/uL (150-450); RED BLOOD COUNT 4.63 10^6/uL (4.00-5.40); WHITE BLOOD COUNT 13.5 10^3/uL (4.0-10.0)
[2020-10-19] MEDS ORDERED: HYDROmorphone 2 MG TAB PO PRN ×2 (11:35→16:00)
[2020-10-19 12:22] LABS: ALBUMIN 2.3 GM/DL (3.2-5.2); ALT/SGPT 31 U/L (12-78); BILIRUBIN,TOTAL 0.4 MG/DL (0.2-1.0); BLOOD UREA NITROGEN 6 MG/DL (7-18); CALCIUM LEVEL 8.7 MG/DL (8.5-10.1); CARBON DIOXIDE LEVEL 27 MEQ/L (21-32); CHLORIDE LEVEL 103 MEQ/L (98-107); CREATININE FOR GFR 0.54 MG/DL (0.55-1.30); GLOMERULAR FILTRATION RATE > 60.0 (>60); GLUCOSE, FASTING 76 MG/DL (70-100); SODIUM LEVEL 139 MEQ/L (136-145); TOTAL PROTEIN 6.8 GM/DL (6.4-8.2)
[2020-10-19] MEDS ORDERED: PIPERACILLIN/TAZOBACTAM SOD 3.375 GM in D5W MINI-BAG PLUS 50 ML IV SCH (13:00)
[2020-10-19] MEDS ORDERED: ONDANSETRON 4 MG TAB PO PRN (13:30)
[2020-10-19] MEDS ORDERED: PILL CUTTER 1 EACH XX PRN (14:25)
[2020-10-19 16:00] VITALS: BP 135/75
[2020-10-19] MEDS ORDERED: MORPHINE 4 MG/ML 1ML VIAL/SYRINGE (J2270) IV ONE (18:25)
[2020-10-19] MEDS: FLUCONAZOLE 50MG TABLET PO SCH (18:43)
[2020-10-19] MEDS: CEFTAROLINE FOSAMIL 600 MG in D5W MINI-BAG PLUS 50 ML IV SCH (18:43)
[2020-10-19] MEDS ORDERED: traZODone 50 MG TAB PO PRN (18:55)
[2020-10-19] MEDS ORDERED: CEFTAROLINE FOSAMIL 600 MG in D5W MINI-BAG PLUS 50 ML IV SCH (19:00)
--- NOTE | 2020-10-19 19:01 | HPEPDOC ---
[facility] Medical History & Physical Date of Admission October 19, 2020 Date of Service: October 19, 2020 Attending Physician: JEFFRY TOWNSEND MD History and Physical CHIEF COMPLAINT: Bilateral breast pain and painful lumps HISTORY OF PRESENT ILLNESS: Patient is a 29 year old female with a past medical history of IVDU, Tobacco dependance, Anxiety, Depression, was apparently alright 5 days ago when she injected Eufemia directly into both her breasts to get high after which she immediately started with constant excruciating pain - 7 out of 10 in intensity at both those injection sites. Since then she has been tolerating the pain with Tylenol which helped a little bit but the pain kept getting worse. Yesterday, the pain became so bad that she had to to come to the emergency department for evaluation and treatment. At this point the pain is constant sharp 10 over 10 in intensity with visible red inflamed lumps over both her breasts. Patient has a past medical history of IV drug use but states that this is the first time she has tried to inject something in her body. She usually smokes Eufemia and marijuana on a routine basis. -Yesterday patient also had many episodes of diarrhea (normal color with no blood) about 6-7 episodes which have since then resolved. She admits to drinking an old bottle of pop that might have caused that. -Patient has also been nauseated with 2 episodes of vomiting, (vomiting yellow colored clear fluids with no blood). She was found to have leukocytosis in the ED with white count of 18.2. Normal vitals. PAST MEDICAL HISTORY: 1. IV drug abuse. 2. Migraines unspecified . 3. PTSD. 4.chronic back pain-fibromyalgia 5. Anxiety with depression-history of a suicide attempt. 6. GERD 7. Asthma unspecified. PAST SURGICAL HISTORY: 1. Tonsillectomy. 2. Cholecystectomy. 3. . 4. Left fallopian tube removal 5. Laparoscopy-for uterus issues ? SOCIAL HISTORY: Marital status: Single. Resides in: Home Children: A 7-year-old boy Tobacco use: Current smoker smokes half pack a day for 13 years ETOH: Occasional Illicit drug use: Smokes Eufemia, marijuana-admits to. Tattoos done unprofessionally: Tattoos all over the body, all done professionally. IV drug use: Yes FAMILY HISTORY: Father: Alive 60 years Mother: due to pneumonia Siblings: 4 sisters-healthy Children: 1alivehealthy Hereditary Diseases: Colorectal carcinomamaternal uncle. Brain tumor-maternal grandfather Unexpected deaths due to medical reasons: none ALLERGIES: Please see below. REVIEW OF SYSTEMS: CONSTITUTIONAL: Denies fever, unintentional weight loss, chills, night sweats. CARDIOVASCULAR: No chest pain RESPIRATORY: No shortness of breath/cough.. GASTROINTESTINAL: No abdominal pain/diarrhea/constipation. GENITOURINARY: No dysuria/polyuria. MUSCULOSKELETAL: Reports -Chronic back pains. Otherwise no joint pains. NEUROLOGICAL: No headaches/vision changes/weakness/paresthesias. PSYCHIATRIC: Reports being anxious/depressed-sees therapy. ENDOCRINE: No polydipsia/polyuria. HEMATOLOGIC/LYMPHATIC: Bleeding and bruising. HOME MEDICATIONS: Please see below. PHYSICAL EXAMINATION: VITAL SIGNS: Temperature 98.8, pulse 90, respiratory rate 18, blood pressure 135/75, pulse oximetry 98% on room air. GENERAL APPEARANCE: Patient appears to be in severe pain, very uncomfortable because of the pain. HEENT: Atraumatic, normocephalic clear conjunctiva bilaterally, PERRLA, nonicteric, no pallor. CARDIOVASCULAR: S1 and S2 heard, rate and rhythm normal. No murmurs appreciated. LUNGS: Lungs menendez clear to auscultation bilaterally. Good movement of air, no wheezing, rales or rhonchi. ABDOMEN: Obese abdomen. Nondistended. Tenderness on deep palpation in the right and left lower quadrant. McBurney's sign negative, Maciel's sign negative. NEURO: Good motor strength, sensations intact. Cranial nerves II-12 intact. PSYCH: Appropriate mood and affect, good eye contact. Alert and oriented to time place person. MUSCULOSKELETAL: Pain in her back chronically. Range of movement normal, no stiffness. EXTREMITIES: Noted distal edema, rashes or varicosities. LABORATORY DATA: See below. IMAGING: #Breast ultrasound done on 10/19/2020: IMPRESSION: Bilateral breast subcutaneous edema with heterogeneous ill-defined collections in the upper outer quadrants measuring 4.7 x 3.2 x 2.3 cm on the right and 3.8 x 4.2 x 1.6 cm on the left . Findings are suggestive of mastitis with breast abscesses. Although malignancy is unlikely it cannot be excluded on this exam. #Portable chest x-ray as per 10/19/2020: Shows no acute findings. MICROBIOLOGY: Please see below. ASSESSMENT AND PLAN: Patient is a 29-year-old female with a past medical history of IV drug use/Tobacco dependance who presents with bilateral breast pain redness and painful lumps after injecting Eufemia directly at the sites 5 days ago and was found to have leukocytosis with a white count of 18.2 and collection on breast ultrasound on both sides concerning for: 1. Bilateral breast abscesses with B/l breast cellulitis- secondary to intravenous injection on both breasts with Eufemia: -Patient has a leukocytosis of 18.2. -The breast ultrasound shows a collection on both sides -Patient was started on IV Zosyn 3.375 every 6 hours and 1000 mg IV vancomycin - given a dose and then discontinued. -Patient was started on Tylenol as needed for mild to moderate pain control. -And Dilaudid 0.5 mg every 6 hours as needed for [id number] pain. -Breast surgery was consulted. - Antibiotics to CEFTAROLINE FOSAMIL 600 MG I/V Q12H- for broader coverage. -IV vancomycin and Zosyn were discontinued -Waiting for recommendations from the breast surgeon ( anticipating breast incision and drainage bilaterally). 2. Diarrhea (infectious versus noninfectious ): -Patient has a good hydration status. -Tolerating oral fluids. -Diarrhea since then resolved. -No restrictions on diet. 3. Nausea: -Patient started on Zofran on an as-needed basis. -Patient has not had any vomiting episodes since being here. -Tolerating oral fluids. -Continue with regular diet. 4. Inframammary candidiasis: Nystatin cream to be applied topically twice a day. -Topical lidocaine to be applied topically twice a day for pain. 5. Candidal vulvovaginitis: -Patient given a dose of Diflucan for 3 days. 6. Anxiety and depression: -Continue with home medication. 7.Chronic Low back pain: -Continue with home medications. -Continue giving acetaminophen as needed. DVT PROPHYLAXIS: Patient put on Enoxaparin 40 mg subcutaneously daily. Vital Signs Vital Signs Date Time Temp Pulse Resp B/P (MAP) Pulse Ox O2 Delivery O2 Flow Rate FiO2 10/19/20 08:00 143/91 (108) 10/19/20 08:00 20 100 10/19/20 07:50 84 Room Air Laboratory Data Labs 24H Laboratory Tests 2 10/19/20 05:35: Immature Granulocyte % (Auto) 0.7, Neutrophils (%) (Auto) 84.0H, Lymphocytes (%) (Auto) 11.1L, Monocytes (%) (Auto) 3.2, Eosinophils (%) (Auto) 0.7, Basophils (%) (Auto) 0.3, Neutrophils # (Auto) 15.3H, Lymphocytes # (Auto) 2.0, Monocytes # (Auto) 0.6, Eosinophils # (Auto) 0.1, Basophils # (Auto) 0.1, Nucleated Red Blood Cells % (auto) 0.0, Erythrocyte Sedimentation Rate 49H, Anion Gap 6L, Glomerular Filtration Rate > 60.0, Calcium Level 8.3L, Total Bilirubin 0.4, Direct Bilirubin 0.2, Aspartate Amino Transf (AST/SGOT) 18, Alanine Aminotransferase (ALT/SGPT) 19, Alkaline Phosphatase 188H, C-Reactive Protein, Quantitative 17.80H, Total Protein 7.1, Albumin 2.4L, Albumin/Globulin Ratio 0.5L, Human Chorionic Gonadotropin, Qual NEGATIVE 10/19/20 11:05: Nucleated Red Blood Cells % (auto) 0.0, Anion Gap 9, Glomerular Filtration Rate > 60.0, Calcium Level 8.7, Total Bilirubin 0.4, Aspartate Amino Transf (AST/SGOT) 66H, Alanine Aminotransferase (ALT/SGPT) 31, Alkaline Phosphatase 254H, Total Protein 6.8, Albumin 2.3L, Albumin/Globulin Ratio 0.5L CBC/BMP Laboratory Tests 10/19/20 05:35 10/19/20 11:05 Microbiology Microbiology 10/19/20 Blood Culture, Received Pending 10/19/20 Respiratory Virus Panel (PCR) (ANALISA) - Final, Complete 10/19/20 Blood Culture, Received Pending Home Medications Scheduled Cefdinir (Cefdinir) 300 Mg Capsule, 300 MG PO BID Clonidine HCl (Clonidine HCl) 0.2 Mg Tablet, 0.2 MG PO BID Folic Acid (Folic Acid) 1 Mg Tablet, 1 MG PO DAILY Gabapentin (Gabapentin) 600 Mg Tab, 600 MG PO TID L.acidoph/L.bulg/B.bif/S.therm (Luma-Bid Caplet) 1 Each Tablet, 2 EA PO BID Lorazepam (Lorazepam) 1 Mg Tablet, 1 MG PO BID Omeprazole (Omeprazole) 40 Mg Cap, 40 MG PO DAILY Venlafaxine HCl (Venlafaxine HCl ER) 75 Mg Cap.er.24h, 225 MG PO DAILY Scheduled PRN Acetaminophen (Tylenol Extra Strength) 500 Mg Tablet, 1,000 MG PO Q6H PRN for PAIN Carisoprodol (Soma) 350 Mg Tablet, 350 MG PO DAILY PRN for MUSCLE SPASMS Oxycodone HCl/Acetaminophen (Percocet 5-325 mg Tablet) 1 Each Tablet, 1 TAB PO BIDP PRN for SEVERE PAIN (PS 8-10) Take 1 tab BID PRN before breast surgery drain removal Tramadol HCl (Tramadol HCl) 50 Mg Tablet, 50 MG PO Q6HP PRN for MODERATE PAIN (PS 5-7) Trazodone HCl (Trazodone HCl) 150 Mg Tablet, 150 MG PO QHS PRN for INSOMNIA Allergies Coded Allergies: aripiprazole (Verified Allergy, Severe, anaphylaxis, 02/05/20) buspirone (Verified Allergy, Severe, anaphalaxis, 02/05/20) Sulfa (Sulfonamide Antibiotics) (Verified Allergy, Intermediate, hives, 02/05/20) ketorolac (Verified Allergy, Intermediate, THROAT SWELLING, 02/05/20) NSAIDS (Non-Steroidal Anti-Inflamma (Verified Adverse Reaction, Inte rmediate, BLEEDING/ULCER - CAN NOT TAKE PER DOCTOR'S REQUEST, 02/05/20) methocarbamol (Verified Adverse Reaction, Intermediate, panic attacks, 02/05/20) metoclopramide (Verified Adverse Reaction, Intermediate, panic attacks, 02/05/20) A-FIB/CHADSVASC A-FIB History Current/History of A-Fib/PAF?: No Current PO Anticoag Therapy: No Age/Risk Factor Scoring CHADSVASC: CHADSVASC Response (Comments) Value Age Risk Factor Age < 65 years old 0 Gender Risk Factor Female 1 Hx of CHF No 0 Hx of HTN No 0 Hx of Stroke/TIA/or VTE No 0 Hx of Diabetes No 0 Hx of Vascular Disease No 0 Total 1 Treatment Reason Anticoagulant not given: Recent/upcomin procedure GME ATTESTATION GME ATTESTATION My faculty preceptor for this patient encounter was physically present during the encounter and was fully available. All aspects of the patient interview, examination, medical decision making process, and medical care plan development were reviewed and approved by the faculty preceptor. The faculty preceptor is aware and concurs with the plan as stated in the body of this note and will attest to such by his/her cosignature. ATTENDING NOTE I, Jeffry Townsend MD, have independently examined this patient and performed my own physical exam, as well as reviewed the documentation and edited where necessary. I have discussed in detail with the resident / student the findings and plan of treatment as documented by the resident / student and edited their note. I agree with their findings and treatment plan and have edited their documentation. Heather Barnes MD October 19, 2020 13:30 JEFFRY TOWNSEND MD October 26, 2020 16:07
[2020-10-19] MEDS: cloNIDine 0.2 MG TAB PO SCH (20:29)
[2020-10-19] MEDS: GABAPENTIN 300 MG CAP PO SCH (20:29)
[2020-10-19] MEDS: LORazepam 1 MG TAB PO SCH (20:29)
[2020-10-19] MEDS: LIDOCAINE 5% OINT 30GM TUBE TOP SCH (20:30)
[2020-10-19] MEDS: NYSTATIN 100,000 UNITS/GM TOPICAL PWD 15 GM TOP SCH (20:30)
[2020-10-19 20:50] LABS: HEPATITIS A ANTIBODY IGM NEGATIVE (NEGATIVE)
--- NOTE | 2020-10-19 21:22 | CR.PDOC ---
Breast Surgery Consultation Date of Consultation Date: October 19, 2020 History and Physical REASON FOR CONSULTATION: b/l breast abscessed HISTORY OF PRESENT ILLNESS: 29 y F with Hx of IV drug use, current marijuana/tobacco user, admitted to hospital due to severe b/l breast pain/ swelling/ cellulitis and b/l breast abscessed which developed after injection b/l "tonya" into breasts. Patient complains of severe pain however at the same time is asking when she can go home. She was found to have leukocytosis. Blood cx were collected and patient was started on empirical abx. She had dinner tonight hence unable to go to OR today. PAST MEDICAL HISTORY: 1. IV drug abuse 2. Migraines unspecified 3. PTSD 4.chronic back pain-fibromyalgia 5. Anxiety with depression-history of a suicide attempt. 6. GERD 7. Asthma unspecified 8. obesity PAST SURGICAL HISTORY: INCLUDES: 1. Tonsillectomy 2. Cholecystectomy 3. 4. Left fallopian tube removal 5. Laparoscopy-for uterus issues PREVIOUS ANESTHESIA REACTIONS: see chart ALLERGIES: Please see below. FAMILY HISTORY: Colorectal carcinoma maternal uncle. Brain tumor-maternal grandfather HOME MEDICATIONS: Please see below. REVIEW OF SYSTEMS: GENERAL: pain + CARDIOVASCULAR: No chest pain RESPIRATORY: smoker tobacco/ marijuana, +Asthma GASTROINTESTINAL: GERD MUSCULOSKELETAL: Chronic back pain PSYCHIATRY: anxious/depressed, drug abuse, PTSD ENDOCRINE: No DM INFECTIOUS: b/l breast abscesses NUTRITION: obesity PHYSICAL EXAMINATION: VITAL SIGNS: Temperature 98.8, pulse 90, respiratory rate 18, blood pressure 135/75, pulse oximetry 98% on room air. GENERAL APPEARANCE: alert, oriented HEENT: Atraumatic head CARDIOVASCULAR no tachycardia LUNGS: breathing comfortably on room air BREAST: b/l extensive cellulitis of breast with blanching, there is large very tender abscess in the right breast, no active drainage at this time, there is smaller abscess in the left breast. There is also b/l yeast infection in the inframammary fold , no palpable lymphadenopathy ABDOMEN: Obese abdomen EXTREMITIES: numerous tattoos LABORATORY DATA: Please see below. IMAGING STUDIES: Breast ultrasound done on 10/19/2020: IMPRESSION: Bilateral breast subcutaneous edema with heterogeneous ill-defined collections in the upper outer quadrants measuring 4.7 x 3.2 x 2.3 cm on the right and 3.8x 4.2 x 1.6 cm on the left . Findings are suggestive of mastitis with breast abscesses. Although malignancy is unlikely it cannot be excluded on this exam. IMPRESSION: b/l breast abscesses b/l breast cellulitis b/l yeast infection in inframammary folds PLANS: - unable to take to OR today as patient was given dinner, will have to wait till tomorrow with I&D - NPO after MN with IVF - HOLD lovenox tomorrow - COVID negative - consent in preop - IV abx per primary team, no separate preop abx - will collect wound cx tomorrow in OR - pain control per primary team - T&S in AM along with labs - test prior to surg - discussed with nursing staff Thank you for allowing me to assist with care of your patient. Vital Signs Vital Signs Date Time Temp Pulse Resp B/P (MAP) Pulse Ox O2 Delivery O2 Flow Rate FiO2 10/19/20 20:29 141/72 10/19/20 20:29 18 10/19/20 18:54 Room Air 10/19/20 16:00 98.8 90 98 Laboratory Data Labs 24H Laboratory Tests 2 10/19/20 05:35: Immature Granulocyte % (Auto) 0.7, Neutrophils (%) (Auto) 84.0H, Lymphocytes (%) (Auto) 11.1L, Monocytes (%) (Auto) 3.2, Eosinophils (%) (Auto) 0.7, Basophils (%) (Auto) 0.3, Neutrophils # (Auto) 15.3H, Lymphocytes # (Auto) 2.0, Monocytes # (Auto) 0.6, Eosinophils # (Auto) 0.1, Basophils # (Auto) 0.1, Nucleated Red Blood Cells % (auto) 0.0, Erythrocyte Sedimentation Rate 49H, Anion Gap 6L, Glomerular Filtration Rate > 60.0, Calcium Level 8.3L, Total Bilirubin 0.4, Direct Bilirubin 0.2, Aspartate Amino Transf (AST/SGOT) 18, Alanine Ami notransferase (ALT/SGPT) 19, Alkaline Phosphatase 188H, C-Reactive Protein, Quantitative 17.80H, Total Protein 7.1, Albumin 2.4L, Albumin/Globulin Ratio 0.5L, Human Chorionic Gonadotropin, Qual NEGATIVE 10/19/20 11:05: Nucleated Red Blood Cells % (auto) 0.0, Anion Gap 9, Glomerular Filtration Rate > 60.0, Calcium Level 8.7, Total Bilirubin 0.4, Aspartate Amino Transf (AST/SGOT) 66H, Alanine Aminotransferase (ALT/SGPT) 31, Alkaline Phosphatase 254H, Total Protein 6.8, Albumin 2.3L, Albumin/Globulin Ratio 0.5L 10/19/20 15:59: Methicillin-Resist S.aureus DNA PCR NOT DETECTED CBC/BMP Laboratory Tests 10/19/20 05:35 10/19/20 11:05 Microbiology Microbiology 10/19/20 Blood Culture, Received Pending 10/19/20 Respiratory Virus Panel (PCR) (ANALISA) - Final, Complete 10/19/20 Blood Culture, Received Pending Home Medications Scheduled Clonidine HCl (Clonidine HCl) 0.2 Mg Tablet, 0.2 MG PO BID, (Reported) Gabapentin (Gabapentin) 600 Mg Tab, 600 MG PO TID, (Reported) Lorazepam (Lorazepam) 1 Mg Tablet, 1 MG PO BID, (Reported) Omeprazole (Omeprazole) 40 Mg Cap, 40 MG PO DAILY, (Reported) Venlafaxine HCl (Venlafaxine HCl ER) 75 Mg Cap.er.24h, 225 MG PO DAILY, (Reported) Scheduled PRN Acetaminophen (Tylenol Extra Strength) 500 Mg Tablet, 1,000 MG PO Q6H PRN for PAIN, (Reported) Carisoprodol (Soma) 350 Mg Tablet, 350 MG PO DAILY PRN for MUSCLE SPASMS, (Reported) Trazodone HCl (Trazodone HCl) 150 Mg Tablet, 150 MG PO QHS PRN for INSOMNIA, (Reported) Allergies Coded Allergies: aripiprazole (Verified Allergy, Severe, anaphylaxis, 02/05/20) buspirone (Verified Allergy, Severe, anaphalaxis, 02/05/20) Sulfa (Sulfonamide Antibiotics) (Verified Allergy, Intermediate, hives, 02/05/20) ketorolac (Verified Allergy, Intermediate, THROAT SWELLING, 02/05/20) NSAIDS (Non-Steroidal Anti-Inflamma (Verified Adverse Reaction, Intermediate, BLEEDING/ULCER - CAN NOT TAKE PER DOCTOR'S REQUEST, 02/05/20) methocarbamol (Verified Adverse Reaction, Intermediate, panic attacks, 02/05/20) metoclopramide (Verified Adverse Reaction, Intermediate, panic attacks, 02/05/20) EMMY RODRÍGUEZ DO October 19, 2020 20:43
[2020-10-19 22:00] VITALS: BP 141/72
[2020-10-20] VITALS (8 sets, daily range): BP systolic 100–138; BP diastolic 59–77
[2020-10-20] MEDS ORDERED: D5W/0.45% SODIUM CHLORIDE 1,000 ML IV SCH ×2
[2020-10-20] MEDS: MORPHINE 2 MG/ML 1ML VIAL (J2270) IV PRN ×4 (00:08→19:43)
[2020-10-20] MEDS: CEFTAROLINE FOSAMIL 600 MG in D5W MINI-BAG PLUS 50 ML IV SCH ×2 (06:09→18:41)
[2020-10-20 06:39] LABS: BASO % 0.2 % (0.0-1.0); EOS # 0.2 10^3/uL (0.0-0.5); EOS % 1.7 % (0.0-3.0); HEMATOCRIT 36.7 % (36.0-47.0); HEMOGLOBIN 10.9 g/dl (12.0-15.5); LYMPH # 1.7 10^3/uL (1.5-5.0); LYMPH % 13.4 % (24.0-44.0); MEAN CORPUSCULAR HEMOGLOBIN 23.1 pg (27.0-33.0); MEAN CORPUSCULAR HGB CONC 29.7 g/dl (32.0-36.5); MEAN CORPUSCULAR VOLUME 77.9 fl (80.0-96.0); MONO # 0.5 10^3/uL (0.0-0.8); MONO % 3.6 % (2.0-8.0); NEUTROPHILS # 10.1 10^3/uL (1.5-8.5); NEUTROPHILS % 80.3 % (36.0-66.0); PLATELET COUNT, AUTOMATED 419 10^3/uL (150-450); RED BLOOD COUNT 4.71 10^6/uL (4.00-5.40); WHITE BLOOD COUNT 12.6 10^3/uL (4.0-10.0)
[2020-10-20 07:08] LABS: BLOOD UREA NITROGEN 5 MG/DL (7-18); CALCIUM LEVEL 8.5 MG/DL (8.5-10.1); CARBON DIOXIDE LEVEL 29 MEQ/L (21-32); CHLORIDE LEVEL 101 MEQ/L (98-107); CREATININE FOR GFR 0.62 MG/DL (0.55-1.30); GLOMERULAR FILTRATION RATE > 60.0 (>60); GLUCOSE, FASTING 92 MG/DL (70-100); POTASSIUM SERUM 4.1 MEQ/L (3.5-5.1); SODIUM LEVEL 137 MEQ/L (136-145)
[2020-10-20] MEDS ORDERED: KETAMINE HCL 200 MG/20 ML VIAL As Ordered ONE (07:40)
[2020-10-20] MEDS ORDERED: MIDAZOLAM INJ 2MG/2ML VIAL (J2250 PER 1MG) As Ordered ONE (07:40)
[2020-10-20] MEDS ORDERED: fentaNYL 100 MCG/2 ML INJECTION (J3010) As Ordered ONE (07:40)
[2020-10-20] MEDS ORDERED: propofoL 200 MG/20 ML VIAL As Ordered ONE (07:42)
[2020-10-20] MEDS ORDERED: dexameTHASONE 4 MG/ML 1ML VIAL (J1100 PER 1MG) As Ordered ONE (07:42)
[2020-10-20] MEDS ORDERED: ONDANSETRON 4MG/2ML VIAL As Ordered ONE (07:42)
[2020-10-20] MEDS ORDERED: LIDOCAINE 2% 100MG/5ML SDV (FOR ANES.) As Ordered ONE (07:42)
[2020-10-20] MEDS ORDERED: ROCURONIUM BROMIDE 50 MG/5 ML VIAL As Ordered ONE (07:42)
[2020-10-20 07:45] LABS: URINE PREG TEST NEGATIVE (NEGATIVE)
[2020-10-20] MEDS ORDERED: ENOXAPARIN 40MG/0.4ML SYRINGE (J1650 PER 10MG) SC SCH (09:00)
[2020-10-20] MEDS: cloNIDine 0.2 MG TAB PO SCH (09:00)
[2020-10-20] MEDS: NYSTATIN 100,000 UNITS/GM TOPICAL PWD 15 GM TOP SCH ×2 (09:00→20:23)
[2020-10-20] MEDS: LIDOCAINE 5% OINT 30GM TUBE TOP SCH ×2 (09:00→20:23)
[2020-10-20] MEDS ORDERED: BUPIVACAINE HCL 0.25% 30ML VIAL As Ordered ONE (09:55)
[2020-10-20] MEDS ORDERED: LIDOCAINE 1% SDV 30ML VIAL As Ordered ONE (09:55)
[2020-10-20] MEDS ORDERED: ACETAMINOPHEN 1000MG 100ML IV BTL (OFIRMEV) (J0131 PER 10MG) As Ordered ONE (10:17)
[2020-10-20] MEDS ORDERED: SUGAMMADEX SODIUM 500 MG/5 ML VIAL (BRIDION) As Ordered ONE (10:19)
[2020-10-20] MEDS ORDERED: HYDROMORPHONE HCL 0.5 MG/ 0.5 ML SYRINGE (J1170 PER 1) IV PRN (11:35)
[2020-10-20] MEDS ORDERED: LR 1,000 ML IV SCH (11:35)
[2020-10-20] MEDS ORDERED: METOCLOPRAMIDE INJ 10MG/2ML VIAL (J2765 PER 1) IV PRN (11:35)
[2020-10-20] MEDS ORDERED: fentaNYL 100 MCG/2 ML INJECTION (J3010) IV PRN (11:35)
[2020-10-20] MEDS ORDERED: PERCOCET 5MG/325MG TAB PO PRN (11:35)
[2020-10-20] MEDS ORDERED: ONDANSETRON 4MG/2ML VIAL IV PRN (11:35)
--- NOTE | 2020-10-20 12:06 | IPNPDOC ---
Text Note Date of Service The patient was seen on 10/20/20. NOTE S: Overnight the patient continued to complain of pain and required 2 doses of 2 mg IV morphine for pain relief. Patient also stated difficulty falling asleep because of the pain. But didn't get at least 5-6 hours of sleep. O:Pt looks in mild distress but non toxic appearing. PHYSICAL EXAMINATION: VITAL SIGNS: Temperature 98.8, pulse 90, respiratory rate 18, blood pressure 135/75, pulse oximetry 98% on room air. GENERAL APPEARANCE: Patient appears to be in severe pain, very uncomfortable because of the pain. HEENT: Atraumatic, normocephalic clear conjunctiva bilaterally, PERRLA, nonicteric, no pallor. CARDIOVASCULAR: S1 and S2 heard, rate and rhythm normal. No murmurs appreciated. LUNGS: Lungs menendez clear to auscultation bilaterally. Good movement of air, no wheezing, rales or rhonchi. ABDOMEN: Obese abdomen. Nondistended. Tenderness on deep palpation in the right and left lower quadrant. McBurney's sign negative, Maciel's sign negative. NEURO: Good motor strength, sensations intact. Cranial nerves II-12 intact. PSYCH: Appropriate mood and affect, good eye contact. Alert and oriented to time place person. MUSCULOSKELETAL: Pain in her back chronically. Range of movement normal, no stiffness. EXTREMITIES: Noted distal edema, rashes or varicosities. LABORATORY DATA: See below. IMAGING: #Breast ultrasound done on 10/19/2020: IMPRESSION: Bilateral breast subcutaneous edema with heterogeneous ill-defined collections in the upper outer quadrants measuring 4.7 x 3.2 x 2.3 cm on the right and 3.8 x 4.2 x 1.6 cm on the left . Findings are suggestive of mastitis with breast abscesses. Although malignancy is unlikely it cannot be excluded on this exam. #Portable chest x-ray as per 10/19/2020: Shows no acute findings. #2-D echo ordered on 10/19/2020- pending MICROBIOLOGY: Please see below. ASSESSMENT AND PLAN: Patient is a 29-year-old female with a past medical history of IV drug use/Tobacco dependance who presents with bilateral breast pain redness and painful lumps after injecting Eufemia directly at the sites 5 days ago and was found to have leukocytosis with a white count of 18.2 and collection on breast ultrasound on both sides concerning for: 1. Bilateral breast abscesses with B/l breast cellulitis- secondary to intravenous injection on both breasts with Eufemia: -Patient had a leukocytosis initially of 18.2 with improvement to 12.6 today. -Vitals remain stable. -The breast ultrasound shows a collection on both sides -Breast surgery Dr. Zacarias saw the patient yesterday evening: As per her recommendations patient will require incision and drainage of the abscess in the OR. Patient was kept nothing by mouth after midnight and IV fluids started, Lovenox was held for the procedure to be done today morning. -The patient is currently in the OR getting the procedure along with collection of a sample for culture. -Patient is currently on Ceftaroline fosamil 600 mg IV every 12 hours for em piric coverage. We will reassess and change the antibiotic as per the culture results. -For pain control patient is being given Dilaudid 0.5 mg every 6 hours as needed for [id number] pain and Tylenol for pain scale of mild to moderate. 2. Diarrhea (infectious versus noninfectious): -Patient has a good hydration status. -Currently NPO. -Patient states having 2 more episodes of loose stools last night. -brat diet recommended after nothing by mouth orders end. 3. Nausea -As per the patientresolved. -Patient has not had any vomiting episodes since being here. -Zofran on an as-needed basis. 4. Inframammary candidiasis: Nystatin cream to be applied topically twice a day. -Topical lidocaine to be applied topically twice a day for pain. 5. Candidal vulvovaginitis: -Continue Diflucan. 6. Anxiety and depression: -Continue with home medication. 7.Chronic Low back pain: -Continue with home medications. -Continue giving acetaminophen as needed. DVT PROPHYLAXIS: Temporarily discontinued for abscess drainage Will resume Lovenox post-op VS,Fishbone, I+O VS, Fishbone, I+O Laboratory Tests 10/20/20 06:06 Vital Signs Date Time Temp Pulse Resp B/P (MAP) Pulse Ox O2 Delivery O2 Flow Rate FiO2 10/20/20 11:20 97.1 96 16 120/56 (77) 99 Non-Rebreather 10.0 I&O- Last 24 Hours up to 6 AM 10/20/20 06:00 Intake Total 2745 ml Output Total 1675 ml Balance 1070 ml GME ATTESTATION GME ATTESTATION My faculty preceptor for this patient encounter was physically present during the encounter and was fully available. All aspects of the patient interview, examination, medical decision making process, and medical care plan development were reviewed and approved by the faculty preceptor. The faculty preceptor is aware and concurs with the plan as stated in the body of this note and will attest to such by his/her cosignature. ATTENDING NOTE I, Andrew Villalobos, have independently examined this patient and performed my own physical exam, as well as reviewed the documentation and edited where necessary. I have discussed in detail with the resident / student the findings and plan of treatment as documented by the resident / student and edited their note. I agree with their findings and treatment plan and have edited their documentation. I will continue to follow the patient during this hospital stay. Heather Barnes MD October 20, 2020 11:34 ANDREW VILLALOBOS MD October 20, 2020 16:16
[2020-10-20] MEDS: GABAPENTIN 300 MG CAP PO SCH ×3 (12:59→20:23)
[2020-10-20] MEDS: LORazepam 1 MG TAB PO SCH (12:59)
[2020-10-20] MEDS: OMEPRAZOLE 20 MG CAP PO SCH (12:59)
--- NOTE | 2020-10-20 17:03 | ROOPDOC ---
[facility] Report Of Operation Report of Operation DATE OF PROCEDURE: 10/20/20 PREPROCEDURE DIAGNOSES: b/l breast abscesses POSTPROCEDURE DIAGNOSES: b/l breast abscesses PROCEDURE: incision and drainage of b/l breast abscesses SURGEON: Ashly Rodríguez ANESTHESIA: general ESTIMATED BLOOD LOSS: Approximately 25 mL. COMPLICATIONS: none REMARKS: copious amount of purulent drainage from abscesses sites DESCRIPTION OF PROCEDURE: INDICATIONS: Ms. Busby is a 29 years old lady who presented to ED with b/l breast abscesses and extensive breast cellulitis after injecting drugs into her breasts. She was admitted for observation and started on IV antibiotics. She was offered b/l breast incision and drainage in the operating room and she wished to proceed. Risks and possible complications were explained to the patient in preop area. Consent was signed. Patients operative site was marked with the josr as well. PROCEDURE: Patient was taken to the operating room and placed on the operating room table. A sign in was called stating patients name, date of and the procedure to be done. Preoperative antibiotics were infused. Smooth induction of general anesthesia was done. Patients hands were extended on arm rests. Care was taken not to over extend the arms. Sequential compression devices were placed and assured to function correctly. After induction of anesthesia, intraop sonographic examination was done on bilateral breasts to assess extent of fluid in the breasts. Patients b/l breasts and axillas were prepped and draped in the usual fashion. Appropriate time out was done. Patients name, date of , and the procedure to be done were confirmed. Procedure was started with the left breast incision and drainage. An incision was made with the scalpel over the left breast abscess site and sonographically identified fluid collection. Fluid pocket was entered and copious amount of purulent drainage was noted. At this time anaerobic and aerobic wound cultures were collected. Specimens were marked with patients name and sent to microbiology lab. Next, a small piece of abscess wall was collected and sent as a separate specimen to the pathology lab for evaluation after previously marking it with patients information. Local anesthetic using 1% lidocaine and 0.25 % Marcaine 50/50 mix was injected at the abscess cavity. The pocket was thoroughly irrigated and hemostasis was achieved. At this point a 0.25 inch [place] drain was placed deep into the abscess cavity and secured in place with 3-0 Nylon stitch at the incision site. Wound was left open to allow drainage. There appeared to be another small area of induration with small fluid pocket seen on sonography. A small stab incision was made at this site to open the pocket. Sanguineous drainage was expresses. Local anesthetic was injected at this site as well. The incision was packed with the gauze. At this time, my attention was turned toward right breast. An incision was made with the scalpel over the right breast abscess site and sonographically identified fluid collection. Fluid pocket was entered and copious amount of purulent drainage was noted. At this time anaerobic and aerobic wound cultures were collected. Specimens were marked with patients name and sent to microbiology lab. Next, a small piece of abscess wall was collected and sent as a separate specimen to the pathology lab for evaluation after previously marking it with patients information. Local anesthetic using 1% lidocaine and 0.25 % Marcaine 5 0/50 mix was injected at the abscess cavity. The pocket was thoroughly irrigated and hemostasis was achieved. At this point a 0.25 inch Anne drain was placed deep into the abscess cavity and secured in place with 3-0 Nylon stitch at the incision site. Wound was loosely approximated with nylon stitches. Part of the wound was left open to allow drainage. Patient emerged from the anesthesia without any problems. Kerlix and ABD pads were placed over the incision and held in place with surgical bra. Sponge and instrument counts were done and were correct. Patient tolerated procedure well and was taken to recovery unit in stable condition. EMMY RODRÍGUEZ DO October 20, 2020 16:27
[2020-10-20] MEDS: cloNIDine 0.1MG TABLET PO SCH (20:23)
[2020-10-20] MEDS: LORazepam 0.5 MG TAB PO SCH (20:23)
[2020-10-21] MEDS: traZODone 50 MG TAB PO PRN ×2 (00:50→21:28)
[2020-10-21] MEDS: MORPHINE 2 MG/ML 1ML VIAL (J2270) IV PRN ×3 (00:50→19:40)
[2020-10-21 02:00] VITALS: BP 126/57
[2020-10-21 05:20] VITALS: O2SAT 93
[2020-10-21 06:00] VITALS: BP 120/73
[2020-10-21] MEDS: CEFTAROLINE FOSAMIL 600 MG in D5W MINI-BAG PLUS 50 ML IV SCH ×2 (06:04→18:21)
[2020-10-21 08:40] LABS: BASO % 0.1 % (0.0-1.0); HEMATOCRIT 34.5 % (36.0-47.0); HEMOGLOBIN 10.1 g/dl (12.0-15.5); LYMPH # 1.7 10^3/uL (1.5-5.0); LYMPH % 9.4 % (24.0-44.0); MEAN CORPUSCULAR HEMOGLOBIN 22.6 pg (27.0-33.0); MEAN CORPUSCULAR HGB CONC 29.3 g/dl (32.0-36.5); MEAN CORPUSCULAR VOLUME 77.2 fl (80.0-96.0); MONO # 0.5 10^3/uL (0.0-0.8); MONO % 2.6 % (2.0-8.0); NEUTROPHILS # 15.6 10^3/uL (1.5-8.5); NEUTROPHILS % 87.1 % (36.0-66.0); PLATELET COUNT, AUTOMATED 467 10^3/uL (150-450); RED BLOOD COUNT 4.47 10^6/uL (4.00-5.40); WHITE BLOOD COUNT 17.9 10^3/uL (4.0-10.0)
[2020-10-21 09:00] VITALS: O2SAT 94
[2020-10-21] MEDS: LIDOCAINE 5% OINT 30GM TUBE TOP SCH ×2 (09:00→21:00)
[2020-10-21] MEDS: NYSTATIN 100,000 UNITS/GM TOPICAL PWD 15 GM TOP SCH ×2 (09:00→21:13)
[2020-10-21 09:07] LABS: ALBUMIN 1.9 GM/DL (3.2-5.2); ALT/SGPT 23 U/L (12-78); BILIRUBIN,TOTAL 0.1 MG/DL (0.2-1.0); BLOOD UREA NITROGEN 8 MG/DL (7-18); CALCIUM LEVEL 8.6 MG/DL (8.5-10.1); CARBON DIOXIDE LEVEL 30 MEQ/L (21-32); CHLORIDE LEVEL 107 MEQ/L (98-107); CREATININE FOR GFR 0.57 MG/DL (0.55-1.30); GLOMERULAR FILTRATION RATE > 60.0 (>60); GLUCOSE, FASTING 148 MG/DL (70-100); MAGNESIUM LEVEL 2.4 MG/DL (1.8-2.4); POTASSIUM SERUM 4.2 MEQ/L (3.5-5.1); SODIUM LEVEL 141 MEQ/L (136-145); TOTAL PROTEIN 6.7 GM/DL (6.4-8.2)
[2020-10-21] MEDS: LORazepam 0.5 MG TAB PO SCH ×2 (09:21→21:12)
[2020-10-21] MEDS: cloNIDine 0.1MG TABLET PO SCH ×2 (09:21→21:12)
[2020-10-21] MEDS: GABAPENTIN 300 MG CAP PO SCH ×3 (09:22→21:12)
[2020-10-21] MEDS: OMEPRAZOLE 20 MG CAP PO SCH (09:22)
[2020-10-21] MEDS: ENOXAPARIN 30MG/0.3ML SYRINGE (J1650 PER 10MG) SC SCH (09:22)
--- NOTE | 2020-10-21 10:23 | IPNPDOC ---
Text Note Date of Service The patient was seen on 10/21/20. NOTE Subjective: Patient is a 29-year-old female with a PMHx of IV drug abuse, Asthma, Nicotine dependence, Migraine headaches, Anxiety / Depression, GERD who presented to the emergency room with bilateral breast pain after she had injected IV Eufemia into her breasts. In the emergency room, patient was found to have ultrasound evidence of abscesses breast surgery was called on consultation and patient was taken to or for drainage on 10/20. Patient was seen and examined at the bedside. Currently patient reports some breast discomfort. Denies any nausea, vomiting, abdominal pain, diarrhea or urinary discomfort. Objective: Vitals (See below) General: Lying in bed, appears relatively comfortable, AAOx3 HEENT: NC, AT CVS: +S1S2 Chest: Bilateral [place] drains in place at bilateral breasts Lungs: Fair air entry b/l, no appreciable wheezing, rhonchi or rales Abdomen: Soft, nondistended and nontender Extremities: - Edema, - Calf tenderness Skin: Multiple tattoos Imaging: Breast US 10/19: Bilateral breast subcutaneous edema with heterogeneous ill-defined collections in the upper outer quadrants measuring 4.7 x 3.2 x 2.3 cm on the right and 3.8 x 4.2 x 1.6 cm on the left . Findings are suggestive of mastitis with breast abscesses. Although malignancy is unlikely it cannot be excluded on this exam. CXR 10/19: No acute findings. Assessment and plan: Bilateral breast abscesses with cellulitis - 2/2 IV use of Eufemia - Patient is currently still reporting some breast discomfort - Bilateral Anne drains in place - Hemodynamically stable and afebrile - Leukocytosis this morning is slightly worsened, however, possibly reactionary given incision and drainage completed yesterday - Blood cultures 10/19: 1 of 2 bottles positive for gram-positive cocci in rian and clusters - Wound cultures 10/20: Pending - Imaging noted above - Will trend CRP / Will repeat blood cultures - c/w Ceftaroline (Day #3) - c/w Pain control with Morphine - Breast surgery, Dr. Zacarias on consultation; appreciate their input s/p Diarrhea - Will start Probiotic s/p Nausea Inframammary candidiasis - c/w Nystatin cream Candidal vulvovaginitis - c/w Diflucan Anxiety / Depression - c/w Trazodone / Lorazepam Chronic Low back pain - c/w Gabapentin / Tylenol - Pain medications (from above) GERD - c/w Omeprazole DVT prophylaxis - c/w Lovenox Disposition: - Awaiting clinical improvement VSJennifer, I+O VSJennifer, I+O Laboratory Tests 10/21/20 08:21 Vital Signs Date Time Temp Pulse Resp B/P (MAP) Pulse Ox O2 Delivery O2 Flow Rate FiO2 10/21/20 09:23 16 96 Nasal Cannula 2.0 10/21/20 09:21 114/64 10/21/20 06:00 97.5 94 I&O- Last 24 Hours up to 6 AM 10/21/20 05:59 Intake Total 3870 ml Output Total 2075 ml Balance 1795 ml LETICIA THAO MD October 21, 2020 10:23
--- NOTE | 2020-10-21 10:50 | IPNPDOC ---
Subjective General Date Seen: October 21, 2020 Subject Chief Complaint/History Patient is a 29-year-old female with a PMHx of IV drug abuse, Asthma, Nicotine dependence, Migraine headaches, Anxiety / Depression, GERD who presented to the emergency room with bilateral breast pain after she had injected IV Eufemia into her breasts. She had leukocytosis. Blood cx were collected and she was started on Abx. She is bacteremic with G+ cocci in clusters on prelim results of cx. In the emergency room, patient was found to have ultrasound evidence of abscesses breast surgery was called on consultation. Patient was taken to OR for b/l I&D drainage on 10/20. copious amount of purulent drainage was found yesterday. She recovered well, complains of pain Current Medications Current Medications Current Medications Medications (Trade) Dose Ordered Sig/Marcus Route PRN Reason Start Time Stop Time Status Last Admin Dose Admin Acetaminophen (Tylenol Tab) 650 mg Q4H PRN PO PAIN OR FEVER 10/19/20 10:20 Ceftaroline Fosamil 600 mg/ Dextrose 50 ml @ 50 mls/hr Q12H IV 10/19/20 19:00 10/19/20 14:41 DC Ceftaroline Fosamil 600 mg/ Dextrose 50 ml @ 50 mls/hr Q12H IV 10/19/20 19:00 10/21/20 06:04 Clonidine HCl (Catapres) 0.1 mg BID PO 10/20/20 21:00 10/21/20 09:21 Clonidine HCl (Catapres) 0.2 mg BID PO 10/19/20 21:00 10/20/20 13:17 DC 10/19/20 20:29 Dextrose/Sodium Chloride 1,000 ml @ 100 mls/hr Q10H IV 10/20/20 00:00 10/19/20 21:18 DC Dextrose/Sodium Chloride 1,000 ml @ 100 mls/hr Q10H IV 10/20/20 00:00 10/20/20 11:35 DC 10/20/20 00:08 Enoxaparin Sodium (Lovenox) 30 mg DAILY SC 10/21/20 09:00 10/21/20 09:22 Enoxaparin Sodium (Lovenox) 40 mg DAILY SC 10/20/20 09:00 10/19/20 21:19 DC Fentanyl Citrate (Sublimaze) 25 mcg Q5MP PRN IV PAIN LEVEL 5-10 10/20/20 11:35 10/20/20 12:35 DC Fluconazole (Diflucan) 150 mg Q3D@09 PO 10/19/20 09:00 10/25/20 09:01 10/19/20 18:43 Gabapentin (Neurontin) 300 mg TID PO 10/20/20 16:00 10/21/20 09:22 Gabapentin (Neurontin) 600 mg TID PO 10/19/20 21:00 10/20/20 13:17 DC 10/20/20 12:59 Home Med (Med Rec Complete!) ASDIRECTED XX 10/19/20 06:35 10/19/20 06:37 DC Hydromorphone HCl (Dilaudid) 0.5 mg Q30M PRN IV MODERATE PAIN (PS 5-7) 10/19/20 05:50 10/19/20 08:00 DC 10/19/20 08:00 Hydromorphone HCl (Dilaudid) 0.5 mg Q4HP PRN PO MODERATE/SEVERE PAIN (PS 5-10) 10/19/20 16:00 10/20/20 12:23 DC 10/19/20 20:29 Hydromorphone HCl (Dilaudid) 0.5 mg Q5MP PRN IV PAIN LEVEL 4-7 10/20/20 11:35 10/20/20 12:23 DC Hydromorphone HCl (Dilaudid) 0.5 mg Q6HP PRN PO MODERATE/SEVERE PAIN (PS 5-10) 10/19/20 11:35 10/19/20 16:00 DC 10/19/20 14:58 Lactated Ringer's 1,000 ml @ 100 mls/hr Q10H IV 10/20/20 11:35 10/20/20 12:35 DC Lactobacillus Acidophilus (Bacid) 2 ea BID PO 10/21/20 09:00 Lidocaine HCl (Lidocaine 5% Oint) Apply to bilateral breasts BID TOP 10/19/20 21:00 10/19/20 20:30 Lorazepam (Ativan) 0.5 mg BID PO 10/20/20 21:00 10/21/20 09:21 Lorazepam (Ativan) 1 mg BID PO 10/19/20 21:00 10/20/20 13:17 DC 10/20/20 12:59 Metoclopramide HCl (REGLAN INJection) 10 mg Q6HP PRN IV NAUSEA OR VOMITING 10/20/20 11:35 10/20/20 12:35 DC Morphine Sulfate (Morphine Sulfate Inj) 2 mg Q4H PRN IV MODERATE PAIN (PS 5-7) 10/19/20 23:10 10/20/20 11:04 DC 10/20/20 06:09 Morphine Sulfate (Morphine Sulfate Inj) 2 mg Q4H PRN IV PAIN LEVEL 8-10 10/20/20 12:25 10/21/20 09:23 Nystatin (Mycostatin Powder, Nystop) Apply under breasts BID TOP 10/19/20 21:00 10/19/20 20:30 Omeprazole (PriLOSEC) 40 mg DAILY PO 10/19/20 09:00 10/21/20 09:22 Ondansetron HCl (ZOFRAN INJection) 4 mg Q4HP PRN IV NAUSEA OR VOMITING 10/20/20 11:35 10/20/20 12:35 DC Ondansetron HCl (Zofran) 4 mg Q12HP PRN PO NAUSEA 10/19/20 13:30 Oxycodone/ Acetaminophen (Percocet 5mg/ 325mg Tablet) 1 tab ASDIRECTED PRN PO PAIN LEVEL 1-4 10/20/20 11:35 10/20/20 12:35 DC Piperacillin Sod/ Tazobactam Sod 3.375 gm/Dextrose 50 ml @ 50 mls/hr Q6H IV 10/19/20 13:00 10/19/20 15:05 DC Tramadol HCl (Ultram) 50 mg Q4HP PRN PO MODERATE PAIN (PS 5-7) 10/21/20 10:40 UNV Trazodone HCl (Desyrel) 50 mg QHS PRN PO INSOMNIA 10/20/20 18:55 10/21/20 00:50 Trazodone HCl (Desyrel) 150 mg QHS PRN PO INSOMNIA 10/19/20 18:55 10/20/20 18:55 DC 10/19/20 22:44 Vancomycin HCl 1000 mg/IV Miscellaneous Supplies 1 each/ Sodium Chloride 270 ml @ 270 mls/hr Q12H IV 10/19/20 11:15 10/19/20 14:41 DC Allergies Coded Allergies: aripiprazole (Verified Allergy, Severe, anaphylaxis, 02/05/20) buspirone (Verified Allergy, Severe, anaphalaxis, 02/05/20) Sulfa (Sulfonamide Antibiotics) (Verified Allergy, Intermediate, hives, 02/05/20) ketorolac (Verified Allergy, Intermediate, THROAT SWELLING, 02/05/20) NSAIDS (Non-Steroidal Anti-Inflamma (Verified Adverse Reaction, Intermediate, BLEEDING/ULCER - CAN NOT TAKE PER DOCTOR'S REQUEST, 02/05/20) methocarbamol (Verified Adverse Reaction, Intermediate, panic attacks, 02/05/20) metoclopramide (Verified Adverse Reaction, Intermediate, panic attacks, 02/05/20) Objective Physical Examination Examination GENERAL APPEARANCE:Patient seen, laying in bed, awake, alert, and oriented. Comfortable, in no acute distress. BREAST: b/l breast cellulitis improving but not resolved yet, s/p b/l I&D with b/l jordy drains and some s/s drainage. tender to palpation b/l HEENT: Normocephalic NECK: Supple LUNGS: breathing comfortably on room air HEART: not tachycardic ABDOMEN: obese , soft EXTREMITIES: spontaneously moving all 4 extremities Vital Signs Vital Signs Date Time Temp Pulse Resp B/P (MAP) Pulse Ox O2 Delivery O2 Flow Rate FiO2 10/21/20 09:23 16 96 Nasal Cannula 2.0 10/21/20 09:21 114/64 10/21/20 06:00 97.5 94 I&Os I&O- Last 24 Hours up to 6 AM 10/21/20 06:00 Intake Total 3570 ml Output Total 2725 ml Balance 845 ml Laboratory Data Labs 24H Laboratory Tests 2 10/21/20 08:21: Immature Granulocyte % (Auto) 0.8, Neutrophils (%) (Auto) 87.1H, Lymphocytes (%) (Auto) 9.4L, Monocytes (%) (Auto) 2.6, Eosinophils (%) (Auto) 0.0, Basophils (%) (Auto) 0.1, Neutrophils # (Auto) 15.6H, Lymphocytes # (Auto) 1.7, Monocytes # (Auto) 0.5, Eosinophils # (Auto) 0.0, Basophils # (Auto) 0.0, Nucleated Red Blood Cells % (auto) 0.0, Anion Gap 4L, Glomerular Filtration Rate > 60.0, Calcium Level 8.6, Magnesium Level 2.4, Total Bilirubin 0.1#L, Aspartate Amino Transf (AST/SGOT) 20, Alanine Aminotransferase (ALT/SGPT) 23, Alkaline Phosphatase 205H, C-Reactive Protein, Quantitative 15.20H, Total Protein 6.7, Albumin 1.9L, Albumin/Globulin Ratio 0.4L CBC/BMP Laboratory Tests 10/21/20 08:21 Microbiology Microbiology 10/20/20 Anaerobic Culture, Received Pending 10/20/20 Abscess Culture, Received Pending 10/20/20 Anaerobic Culture, Received Pending 10/20/20 Abscess Culture, Received Pending 10/19/20 Blood Culture - Preliminary, Resulted No growth after 24 hours . All specim... 10/19/20 Respiratory Virus Panel (PCR) (ANALISA) - Final, Complete 10/19/20 Blood Culture - Preliminary, Resulted Impression IMPRESSION: b/l breast abscesses b/l breast cellulitis b/l yeast infection in inframammary folds bacteremia with Gram + cocci in clusters s/p b/l I&D of breast abscesses on 10/20/20 PLANS: - pain control, added Ultram for moderate pain - IV abx per primary team, - awaiting final blood and wound cx, prelim blood + for G+ cocci - monitor leukocytosis - nystatin to b/l inframammary folds, continue Diflucan , one dose given - change dressings PRN if soiled, Kerlix and ABD pads to each site - discussed with nursing staff - dvt ppx - will continue to follow Plan / VTE VTE Prophylaxis Ordered?: Yes EMMY RODRÍGUEZ DO October 21, 2020 10:50
[2020-10-21] MEDS: traMADol 50 MG TAB PO PRN ×3 (11:23→21:14)
[2020-10-21] MEDS: LACTOBACILLUS ACIDOPHILUS CAP (BACID) PO SCH ×2 (11:24→21:12)
[2020-10-21 14:00] VITALS: BP 114/62
[2020-10-21 22:00] VITALS: BP 123/70
[2020-10-22 02:45] VITALS: O2SAT 93
[2020-10-22] MEDS: MORPHINE 2 MG/ML 1ML VIAL (J2270) IV PRN ×2 (04:51→15:11)
[2020-10-22 06:00] VITALS: BP 131/76
[2020-10-22] MEDS: CEFTAROLINE FOSAMIL 600 MG in D5W MINI-BAG PLUS 50 ML IV SCH (06:25)
[2020-10-22] MEDS: FLUCONAZOLE 50MG TABLET PO SCH (08:54)
[2020-10-22] MEDS: ENOXAPARIN 30MG/0.3ML SYRINGE (J1650 PER 10MG) SC SCH (08:54)
[2020-10-22] MEDS: LACTOBACILLUS ACIDOPHILUS CAP (BACID) PO SCH ×2 (09:05→22:25)
[2020-10-22] MEDS: LORazepam 0.5 MG TAB PO SCH ×2 (09:05→22:25)
[2020-10-22] MEDS: GABAPENTIN 300 MG CAP PO SCH ×3 (09:05→22:26)
[2020-10-22] MEDS: OMEPRAZOLE 20 MG CAP PO SCH (09:05)
[2020-10-22] MEDS: cloNIDine 0.1MG TABLET PO SCH ×2 (09:05→22:26)
[2020-10-22] MEDS: LIDOCAINE 5% OINT 30GM TUBE TOP SCH ×2 (09:06→21:00)
[2020-10-22] MEDS: NYSTATIN 100,000 UNITS/GM TOPICAL PWD 15 GM TOP SCH ×2 (09:06→22:27)
--- NOTE | 2020-10-22 10:47 | ECHO ---
DATE OF PROCEDURE: 10/21/2020 Age: 29 Gender: Female REFERRING PHYSICIAN: Jeffry Townsend MD PATIENT LOCATION: Room 4216 REASON FOR THE STUDY: Endocarditis. MEASUREMENTS: 2D measurement: IVS 1.1 cm LV 4.7 cm LVPW 1.0 cm LA 3.7 cm Aorta 3.1 cm RV 3.1 cm IVC 1.8 cm Doppler measurements: Not done. 2D COMMENTS: 1. Technically limited study due to poor acoustic window and technical difficulty due to breast abscess. 2. Normal left ventricle, wall thickness and global left ventricular systolic function. The estimated left ventricular systolic ejection fraction is 60 to 65%. 3. Normal left atrium. The right atrium and the right ventricle appear to be normal in limited views. 4. Normal aortic root. 5. No pericardial effusion seen. 6. Aortic valve, mitral valve, tricuspid valve and pulmonic valve appear to be normal in limited views. 7. The inferior vena cava was normal size, central venous pressure is most likely normal. Doppler: No significant valvular abnormalities detected. IMPRESSION: 1. Technically limited study. 2. Normal global left ventricular systolic function. 3. No valvular abnormalities detected in this transthoracic echocardiogram. If endocarditis is a concern, to consider a transesophageal echocardiogram ([place]). MTDD
[2020-10-22 10:54] LABS: HEMATOCRIT 33.2 % (36.0-47.0); HEMOGLOBIN 9.8 g/dl (12.0-15.5); MEAN CORPUSCULAR HEMOGLOBIN 23.2 pg (27.0-33.0); MEAN CORPUSCULAR HGB CONC 29.5 g/dl (32.0-36.5); MEAN CORPUSCULAR VOLUME 78.7 fl (80.0-96.0); PLATELET COUNT, AUTOMATED 458 10^3/uL (150-450); RED BLOOD COUNT 4.22 10^6/uL (4.00-5.40); WHITE BLOOD COUNT 10.2 10^3/uL (4.0-10.0)
[2020-10-22 11:17] LABS: ALT/SGPT 30 U/L (12-78); ATYPICAL LYMPH 11 % (0-5); BASOPHILS 1 % (0-1); BILIRUBIN,TOTAL < 0.1 MG/DL (0.2-1.0); BLOOD UREA NITROGEN 8 MG/DL (7-18); CALCIUM LEVEL 8.7 MG/DL (8.5-10.1); CARBON DIOXIDE LEVEL 31 MEQ/L (21-32); CHLORIDE LEVEL 107 MEQ/L (98-107); CREATININE FOR GFR 0.65 MG/DL (0.55-1.30); EOSINOPHILS 3 % (0-3); GLOMERULAR FILTRATION RATE > 60.0 (>60); GLUCOSE, FASTING 100 MG/DL (70-100); LYMPHOCYTES 31 % (16-44); MAGNESIUM LEVEL 2.1 MG/DL (1.8-2.4); METAMYELOCYTES 1 % (0-0); NEUTROPHILS 53 % (28-66); PLATELET ESTIMATE INCREASED (NORMAL); POTASSIUM SERUM 3.4 MEQ/L (3.5-5.1); SODIUM LEVEL 141 MEQ/L (136-145); TOTAL PROTEIN 6.7 GM/DL (6.4-8.2)
[2020-10-22 11:18] LABS: ANISOCYTOSIS 2+; HYPOCHROMASIA 2+
[2020-10-22 11:19] LABS: POLYCHROMASIA 1+
[2020-10-22 14:00] VITALS: BP 133/70
[2020-10-22] MEDS: ceFAZolin SOD 2 GM in IV 1 EA IV SCH ×2 (15:10→22:26)
[2020-10-22] MEDS: CYCLOBENZAPRINE 10MG TABLET PO PRN (15:11)
--- NOTE | 2020-10-22 16:04 | IPNPDOC ---
Text Note Date of Service The patient was seen on 10/22/20. NOTE S Patient reported overall improvement after procedure on 10/20. She continue to have R breast pain and back pain (spasm pain rated 7/10). She denied development of fever, chills, N/V/D, abd pain and urinary symptoms overnight. Patient reported her vaginal pain and discharge have improved as well. O VITAL SIGNS: See below GENERAL APPEARANCE: Revealed 30 y/o obese F, laying R lateral recumbent position on bed, alert & oriented x3, in no acute distress. HEENT Exam: Normocephalic and atraumatic, PERRL, EOMI, without sclera icteric, mucous membr. moist/pink, pharynx normal, nares patent. NECK: Supple without lymphadenopathy LUNGS: Clear to auscultation bilaterally with full breath sounds without rales, wheezing, and crackles. Bilateral breasts dressed in wound dressing without significant drainage or discharge. CARDIOVASCULAR: Regular rate and rhythm, normal S1 & S2 without gallops, murmurs, rubs ABDOMEN: Soft, non-tender, non-distended with normal bowel sounds. No masses or ecchymosis or hepatosplenomegaly. EXTREMITIES: 2+ pulses in all extremities. No edema, tenderness SKIN: Normal turgor and temperature. No rash, lesion. Multiple tattoos noted on bilateral arms. NEUROLOGICAL: Normal speech. No signs of gross focal neurological deficit. PSYCHIATRIC: Mildly anxious and tearful at times ASSESSMENT AND PLAN: Patient is a 29-year-old female with a past medical history of IV drug use, Tobacco dependance, anxiety, and depression who presents with bilateral breast pain, redness, and painful lumps after injecting Eufemia directly at sites on B/L breast on 10/14/2020. She was found to have leukocytosis with a white count of 18.2 and her B/L breast U/S showed bilateral collections suggestive of mastitis with breast abscesses. She was admitted and treated with ceftaroline. Dr. Zacarias (breast surgery) was consulted and took patient to the OR on 10/20/20 for incision and drainage of B/L breast abscesses, copious amount of purulent drainage was reported. Patient has been afebrile overnight. 1 BCx returned positive for Staph Hominis on 10/19 but subsequent BCxs were negative (likely 2/2 contamination). However, her left and right breast abscess culture grew MSSA (L breast) and Strep Pyogenes (R breast), and her anaerobic cultures have been negative. 1. Bilateral breast abscesses with cellulitis- 2/2 injection of Eufemia on B/L breasts: -B/L breast US showed bilateral breast subcutaneous edema with heterogeneous ill-defined collections in the upper outer quadrants measuring 4.7 x 3.2 x 2.3 cm on the right and 3.8 x 4.2 x 1.6 cm on the left. Findings are suggestive of mastitis with breast abscesses. -s/p I&D of B/L breast abscesses on 10/20/20 -leukocytosis improved to 10.2 today, CRP trending down -Vitals remain stable. Afebrile overnight -Blood cultures 10/19: 1 of 2 bottles positive for Staph Hominis, 2nd bottle negative, likely 2/2 to contamination -repeat BCx on 10/21 negative 2 of 2 -Anaerobic wound cultures negative for B/L breast -Abscess culture positive for Strep Pyogenes on R breast and positive for MSSA on L breast -currently on day 4 of ceftaroline, switch to cefazolin -continue pain control with Morphine -Breast surgery, Dr. Zacarias on consultation; appreciate their input 2. Diarrhea, resolved: -Patient denied diarrhea -Cont probiotic 3. Nausea, resolved: -Patient reported nausea resolved since admission -Zofran on an as-needed basis. 4. Inframammary candidiasis: -Cont topical nystatin and lidocaine 5. Candidal vulvovaginitis: -Continue Diflucan. 6. Anxiety and depression: -Continue Trazodone and Lorazepam 7. Chronic Low back pain: -Continue Gabapentin and Tylenol -Started on cyclobenzaprine today for back spasm 8. GERD: -Cont omeprazole 9. DVT prophylaxis -Cont Lovenox Disposition: Awaiting clinical improvement, anticipate discharge in 2 days. VS,Fishbone, I+O VS, Fishbone, I+O Laboratory Tests 10/22/20 10:39 Vital Signs Date Time Temp Pulse Resp B/P (MAP) Pulse Ox O2 Delivery O2 Flow Rate FiO2 10/22/20 15:11 18 Room Air 10/22/20 09:05 105/57 10/22/20 06:00 98.4 78 96 10/21/20 09:33 2.0 I&O- Last 24 Hours up to 6 AM 10/22/20 06:00 Intake Total 2860 ml Output Total 2450 ml Balance 410 ml GME ATTESTATION GME ATTESTATION My faculty preceptor for this patient encounter was physically present during the encounter and was fully available. All aspects of the patient interview, examination, medical decision making process, and medical care plan development were reviewed and approved by the faculty preceptor. The faculty preceptor is aware and concurs with the plan as stated in the body of this note and will attest to such by his/her cosignature. ATTENDING NOTE I, Jeffry Townsend MD, have independently examined this patient and performed my own physical exam, as well as reviewed the documentation and edited where necessary. I have discussed in detail with the resident / student the findings and plan of treatment as documented by the resident / student and edited their note. I agree with their findings and treatment plan and have edited their documentation. FARHAT LEWIS OMS-3 October 22, 2020 16:04 JEFFRY TOWNSEND MD October 26, 2020 16:08
[2020-10-22] MEDS ORDERED: MORPHINE 2 MG/ML 1ML VIAL (J2270) IV ONE (18:15)
--- NOTE | 2020-10-22 20:48 | IPNPDOC ---
Subjective General Date Seen: October 22, 2020 Subject Chief Complaint/History Patient is a 30-year-old female with a PMHx of IV drug abuse, Asthma, Nicotine dependence, Migraine headaches, Anxiety / Depression, GERD who presented to the emergency room with bilateral breast pain after she had injected IV Eufemia into her breasts. She had leukocytosis. Blood cx were collected and she was started on Abx. She is bacteremic with G+ cocci in clusters on prelim results of cx. In the emergency room, patient was found to have ultrasound evidence of abscesses breast surgery was called on consultation. Patient was taken to OR for b/l I&D drainage on 10/20. copious amount of purulent drainage was found in OR. Blood cx + Wound cx + Current Medications Current Medications Current Medications Medications (Trade) Dose Ordered Sig/Marcus Route PRN Reason Start Time Stop Time Status Last Admin Dose Admin Acetaminophen (Tylenol Tab) 650 mg Q4H PRN PO PAIN OR FEVER 10/19/20 10:20 Cefazolin Sodium/ Dextrose 2 gm/IV Miscellaneous Supplies 50 ml @ 75 mls/hr Q8H IV 10/22/20 15:00 10/22/20 15:10 Ceftaroline Fosamil 600 mg/ Dextrose 50 ml @ 50 mls/hr Q12H IV 10/19/20 19:00 10/22/20 14:01 DC 10/22/20 06:25 Ceftaroline Fosamil 600 mg/ Dextrose 50 ml @ 50 mls/hr Q12H IV 10/19/20 19:00 10/19/20 14:41 DC Clonidine HCl (Catapres) 0.1 mg BID PO 10/20/20 21:00 10/22/20 09:05 Clonidine HCl (Catapres) 0.2 mg BID PO 10/19/20 21:00 10/20/20 13:17 DC 10/19/20 20:29 Cyclobenzaprine HCl (Flexeril) 10 mg Q6HP PRN PO SPASMS 10/22/20 11:05 10/22/20 15:11 Dextrose/Sodium Chloride 1,000 ml @ 100 mls/hr Q10H IV 10/20/20 00:00 10/19/20 21:18 DC Dextrose/Sodium Chloride 1,000 ml @ 100 mls/hr Q10H IV 10/20/20 00:00 10/20/20 11:35 DC 10/20/20 00:08 Enoxaparin Sodium (Lovenox) 30 mg DAILY SC 10/21/20 09:00 10/22/20 08:54 Enoxaparin Sodium (Lovenox) 40 mg DAILY SC 10/20/20 09:00 10/19/20 21:19 DC Fentanyl Citrate (Sublimaze) 25 mcg Q5MP PRN IV PAIN LEVEL 5-10 10/20/20 11:35 10/20/20 12:35 DC Fluconazole (Diflucan) 150 mg Q3D@09 PO 10/19/20 09:00 10/25/20 09:01 10/22/20 08:54 Gabapentin (Neurontin) 300 mg TID PO 10/20/20 16:00 10/22/20 15:11 Gabapentin (Neurontin) 600 mg TID PO 10/19/20 21:00 10/20/20 13:17 DC 10/20/20 12:59 Home Med (Med Rec Complete!) ASDIRECTED XX 10/19/20 06:35 10/19/20 06:37 DC Hydromorphone HCl (Dilaudid) 0.5 mg Q30M PRN IV MODERATE PAIN (PS 5-7) 10/19/20 05:50 10/19/20 08:00 DC 10/19/20 08:00 Hydromorphone HCl (Dilaudid) 0.5 mg Q4HP PRN PO MODERATE/SEVERE PAIN (PS 5-10) 10/19/20 16:00 10/20/20 12:23 DC 10/19/20 20:29 Hydromorphone HCl (Dilaudid) 0.5 mg Q5MP PRN IV PAIN LEVEL 4-7 10/20/20 11:35 10/20/20 12:23 DC Hydromorphone HCl (Dilaudid) 0.5 mg Q6HP PRN PO MODERATE/SEVERE PAIN (PS 5-10) 10/19/20 11:35 10/19/20 16:00 DC 10/19/20 14:58 Lactated Ringer's 1,000 ml @ 100 mls/hr Q10H IV 10/20/20 11:35 10/20/20 12:35 DC Lactobacillus Acidophilus (Bacid) 2 ea BID PO 10/21/20 09:00 10/22/20 09:05 Lidocaine HCl (Lidocaine 5% Oint) Apply to bilateral breasts BID TOP 10/19/20 21:00 10/22/20 09:06 Lorazepam (Ativan) 0.5 mg BID PO 10/20/20 21:00 10/22/20 09:05 Lorazepam (Ativan) 1 mg BID PO 10/19/20 21:00 10/20/20 13:17 DC 10/20/20 12:59 Metoclopramide HCl (REGLAN INJection) 10 mg Q6HP PRN IV NAUSEA OR VOMITING 10/20/20 11:35 10/20/20 12:35 DC Morphine Sulfate (Morphine Sulfate Inj) 2 mg Q4H PRN IV MODERATE PAIN (PS 5-7) 10/19/20 23:10 10/20/20 11:04 DC 10/20/20 06:09 Morphine Sulfate (Morphine Sulfate Inj) 2 mg Q4H PRN IV PAIN LEVEL 8-10 10/20/20 12:25 10/21/20 12:32 DC 10/21/20 09:23 Morphine Sulfate (Morphine Sulfate Inj) 2 mg Q8H PRN IV PAIN LEVEL 8-10 10/21/20 17:31 10/22/20 15:11 Nystatin (Mycostatin Powder, Nystop) Apply under breasts BID TOP 10/19/20 21:00 10/22/20 09:06 Omeprazole (PriLOSEC) 40 mg DAILY PO 10/19/20 09:00 10/22/20 09:05 Ondansetron HCl (ZOFRAN INJection) 4 mg Q4HP PRN IV NAUSEA OR VOMITING 10/20/20 11:35 10/20/20 12:35 DC Ondansetron HCl (Zofran) 4 mg Q12HP PRN PO NAUSEA 10/19/20 13:30 Oxycodone/ Acetaminophen (Percocet 5mg/ 325mg Tablet) 1 tab ASDIRECTED PRN PO PAIN LEVEL 1-4 10/20/20 11:35 10/20/20 12:35 DC Piperacillin Sod/ Tazobactam Sod 3.375 gm/Dextrose 50 ml @ 50 mls/hr Q6H IV 10/19/20 13:00 10/19/20 15:05 DC Tramadol HCl (Ultram) 50 mg Q4HP PRN PO MODERATE PAIN (PS 5-7) 10/21/20 10:40 10/21/20 21:14 Trazodone HCl (Desyrel) 50 mg QHS PRN PO INSOMNIA 10/20/20 18:55 10/21/20 21:28 Trazodone HCl (Desyrel) 150 mg QHS PRN PO INSOMNIA 10/19/20 18:55 10/20/20 18:55 DC 10/19/20 22:44 Vancomycin HCl 1000 mg/IV Miscellaneous Supplies 1 each/ Sodium Chloride 270 ml @ 270 mls/hr Q12H IV 10/19/20 11:15 10/19/20 14:41 DC Allergies Coded Allergies: aripiprazole (Verified Allergy, Severe, anaphylaxis, 02/05/20) buspirone (Verified Allergy, Severe, anaphalaxis, 02/05/20) Sulfa (Sulfonamide Antibiotics) (Verified Allergy, Intermediate, hives, 02/05/20) ketorolac (Verified Allergy, Intermediate, THROAT SWELLING, 02/05/20) NSAIDS (Non-Steroidal Anti-Inflamma (Verified Adverse Reaction, Intermediate, BLEEDING/ULCER - CAN NOT TAKE PER DOCTOR'S REQUEST, 02/05/20) methocarbamol (Verified Adverse Reaction, Intermediate, panic attacks, 02/05/20) metoclopramide (Verified Adverse Reaction, Intermediate, panic attacks, 02/05/20) Objective Physical Examination Examination GENERAL APPEARANCE:Patient seen, laying in bed, awake, alert, and oriented. BREAST: b/l breast cellulitis improving but not resolved yet, s/p b/l I&D with b/l jordy drains and some s/s drainage. tender to palpation b/l HEENT: Normocephalic NECK: Supple LUNGS: breathing comfortably on room air HEART: not tachycardic ABDOMEN: obese , soft EXTREMITIES: spontaneously moving all 4 extremities Vital Signs Vital Signs Date Time Temp Pulse Resp B/P (MAP) Pulse Ox O2 Delivery O2 Flow Rate FiO2 10/22/20 18:28 18 Room Air 10/22/20 14:00 98.0 86 133/70 (91) 96 10/21/20 09:33 2.0 I&Os I&O- Last 24 Hours up to 6 AM 10/22/20 06:00 Intake Total 2860 ml Output Total 2450 ml Balance 410 ml Laboratory Data Labs 24H Laboratory Tests 2 10/22/20 10:39: Neutrophils (%) (Auto) , Nucleated Red Blood Cells % (auto) 0.0, Neutrophils 53, Lymphocytes (Manual) 31, Eosinophils (Manual) 3, Basophils (Manual) 1, Metamyelocytes 1H, Atypical Lymphocytes 11H, Polychromasia 1+, Hypochromasia 2+, Anisocytosis 2+, Platelet Estimate INCREASED, Anion Gap 3L, Glomerular Filtra tion Rate > 60.0, Calcium Level 8.7, Magnesium Level 2.1, Total Bilirubin < 0.1L, Aspartate Amino Transf (AST/SGOT) 37, Alanine Aminotransferase (ALT/SGPT) 30, Alkaline Phosphatase 188H, Total Protein 6.7, Albumin 2.0L, Albumin/Globulin Ratio 0.4L CBC/BMP Laboratory Tests 10/22/20 10:39 Microbiology Microbiology 10/21/20 Blood Culture - Preliminary, Resulted No growth after 24 hours . All specim... 10/21/20 Blood Culture - Preliminary, Resulted No growth after 24 hours . All specim... 10/20/20 Anaerobic Culture - Final, Complete 10/20/20 Abscess Culture - Preliminary, Resulted Streptococcus Pyogenes Grp A 10/20/20 Anaerobic Culture - Final, Complete 10/20/20 Abscess Culture - Final, Complete Staphylococcus Aureus 10/19/20 Blood Culture - Preliminary, Resulted No Growth after 72 hours. All specime... 10/19/20 Respiratory Virus Panel (PCR) (ANALISA) - Final, Complete 10/19/20 Blood Culture - Final, Complete Staphylococcus Hominis Ssp Kieran Impression IMPRESSION: b/l breast abscesses b/l breast cellulitis b/l yeast infection in inframammary folds bacteremia s/p b/l I&D of breast abscesses on 10/20/20 PLANS: - monitor cellulitis, better but not resolved, - pain control - abx per primary team, - nystatin to b/l inframammary folds, continue Diflucan , one dose given - change dressings PRN if soiled, Kerlix and ABD pads to each site - dvt ppx - will continue to follow Plan / VTE VTE Prophylaxis Ordered?: Yes EMMY RODRÍGUEZ DO October 22, 2020 20:48
[2020-10-22 22:00] VITALS: BP 112/60
[2020-10-22] MEDS: traZODone 50 MG TAB PO PRN (22:26)
[2020-10-22] MEDS: traMADol 50 MG TAB PO PRN (22:27)
[2020-10-23] MEDS: MORPHINE 2 MG/ML 1ML VIAL (J2270) IV PRN ×3 (01:13→20:03)
[2020-10-23 04:59] VITALS: O2SAT 94
[2020-10-23 06:00] VITALS: BP 118/60
[2020-10-23] MEDS: ceFAZolin SOD 2 GM in IV 1 EA IV SCH ×3 (06:38→23:15)
[2020-10-23] MEDS: traMADol 50 MG TAB PO PRN ×3 (06:43→23:01)
[2020-10-23] MEDS: LORazepam 0.5 MG TAB PO SCH ×2 (09:52→20:02)
[2020-10-23] MEDS: OMEPRAZOLE 20 MG CAP PO SCH (09:52)
[2020-10-23] MEDS: GABAPENTIN 300 MG CAP PO SCH ×3 (09:52→20:02)
[2020-10-23] MEDS: ENOXAPARIN 30MG/0.3ML SYRINGE (J1650 PER 10MG) SC SCH (09:52)
[2020-10-23] MEDS: LACTOBACILLUS ACIDOPHILUS CAP (BACID) PO SCH ×2 (09:52→20:01)
[2020-10-23] MEDS: LIDOCAINE 5% OINT 30GM TUBE TOP SCH ×2 (09:53→20:09)
[2020-10-23] MEDS: NYSTATIN 100,000 UNITS/GM TOPICAL PWD 15 GM TOP SCH ×2 (09:53→20:10)
[2020-10-23] MEDS: cloNIDine 0.1MG TABLET PO SCH ×2 (10:26→20:09)
[2020-10-23] MEDS ORDERED: POTASSIUM CHLORIDE 10 MEQ SR TABLET PO ONE (10:30)
[2020-10-23 10:39] LABS: HEMATOCRIT 33.5 % (36.0-47.0); HEMOGLOBIN 9.8 g/dl (12.0-15.5); MEAN CORPUSCULAR HGB CONC 29.3 g/dl (32.0-36.5); MEAN CORPUSCULAR VOLUME 78.6 fl (80.0-96.0); PLATELET COUNT, AUTOMATED 462 10^3/uL (150-450); RED BLOOD COUNT 4.26 10^6/uL (4.00-5.40); WHITE BLOOD COUNT 7.9 10^3/uL (4.0-10.0)
[2020-10-23 11:08] LABS: EOSINOPHILS 4 % (0-3); LYMPHOCYTES 34 % (16-44); METAMYELOCYTES 2 % (0-0); MONOCYTES 2 % (0-5); NEUTROPHILS 57 % (28-66); PLATELET ESTIMATE NORMAL (NORMAL)
[2020-10-23 11:11] LABS: ALT/SGPT 38 U/L (12-78); BILIRUBIN,TOTAL 0.1 MG/DL (0.2-1.0); BLOOD UREA NITROGEN 8 MG/DL (7-18); CALCIUM LEVEL 8.8 MG/DL (8.5-10.1); CARBON DIOXIDE LEVEL 30 MEQ/L (21-32); CHLORIDE LEVEL 106 MEQ/L (98-107); CREATININE FOR GFR 0.64 MG/DL (0.55-1.30); GLOMERULAR FILTRATION RATE > 60.0 (>60); GLUCOSE, FASTING 79 MG/DL (70-100); MAGNESIUM LEVEL 1.9 MG/DL (1.8-2.4); POTASSIUM SERUM 3.9 MEQ/L (3.5-5.1); SODIUM LEVEL 140 MEQ/L (136-145); TOTAL PROTEIN 6.3 GM/DL (6.4-8.2)
--- NOTE | 2020-10-23 13:17 | IPNPDOC ---
Text Note Date of Service The patient was seen on 10/23/20. NOTE S Patient has no complaint today. She continue to have some R breast pain but her back pain has improved. She denied development of fever, chills, N/V/D, abd pain and urinary symptoms overnight. She reported Dr. Zacarias saw her yesterday and wound dressing were changed, she noted her wound continues to be red. Her last BM was 10/19 evening but she denied feeling constipated. O VITAL SIGNS: See below GENERAL APPEARANCE: Revealed 30 y/o obese F, sitting up on bed with legs crossed, alert & oriented x3, in no acute distress. HEENT Exam: Normocephalic and atraumatic, EOMI, without sclera icteric, mucous membr. moist/pink, pharynx normal, nares patent. NECK: Supple without lymphadenopathy LUNGS: Clear to auscultation bilaterally with full breath sounds without rales, wheezing, and crackles. Bilateral breasts dressed in wound dressing without significant drainage or discharge. CARDIOVASCULAR: Regular rate and rhythm, normal S1 & S2 without gallops, murmurs, rubs ABDOMEN: Soft, mild tenderness noted in B/L upper quadrants upon deep palpation, non-distended with normal bowel sounds. No masses or ecchymosis or hepatosplenomegaly. EXTREMITIES: 2+ pulses in all extremities. No edema, tenderness SKIN: Normal turgor and temperature. No rash, lesion. Multiple tattoos noted on bilateral arms and chest. NEUROLOGICAL: Normal speech. No signs of gross focal neurological deficit. PSYCHIATRIC: Depressed and flat affect, tearful at times ASSESSMENT AND PLAN: Patient is a 29-year-old female with a past medical history of IV drug use, tobacco dependance, anxiety, and depression who presents with bilateral breast pain, redness, and painful lumps after injecting Eufemia directly at sites on B/L breast on 10/14/2020. She was found to have leukocytosis with a white count of 18.2 and her B/L breast U/S showed bilateral collections suggestive of mastitis with breast abscesses. She was admitted and treated with ceftaroline. Dr. Zacarias (breast surgery) was consulted and took patient to the OR on 10/20/20 for incision and drainage of B/L breast abscesses, copious amount of purulent drainage was reported. Patient has been afebrile. 1 BCx returned positive for Staph Hominis on 10/19 but subsequent repeat BCxs on 10/21 were negative (likely 2/2 contamination). However, her left and right breast abscess culture grew MSSA (L breast) and Strep Pyogenes (R breast), and her anaerobic cultures have been negative. She was on ceftaroline for 4 days and switched to cefazolin on 10/22, currently on day 2 of cefazolin. 1. Bilateral breast abscesses with cellulitis- 2/2 injection of Eufemia on B/L breasts: -B/L breast US showed bilateral breast subcutaneous edema with heterogeneous ill-defined collections in the upper outer quadrants measuring 4.7 x 3.2 x 2.3 cm on the right and 3.8 x 4.2 x 1.6 cm on the left. Findings are suggestive of mastitis with breast abscesses. -s/p I&D of B/L breast abscesses on 10/20/20 -leukocytosis resolved -Vitals remain stable. Afebrile overnight -Blood cultures 10/19: 1 of 2 bottles positive for Staph Hominis, 2nd bottle ne gative, likely 2/2 to contamination -repeat BCx on 10/21 negative 2 of 2 -Anaerobic wound cultures negative for B/L breast -Abscess culture positive for Strep Pyogenes on R breast and positive for MSSA on L breast -Was on ceftaroline for 4 days, now on day 2 of cefazolin, consider switching to PO Abx tomorrow -continue pain control with morphine -Breast surgery, Dr. Zacarias on consultation; appreciate their input -echo negative for endocarditis 2. Diarrhea, resolved: -Patient denied diarrhea -Cont probiotic 3. Nausea, resolved: -Patient reported nausea resolved since admission -Zofran on an as-needed basis. 4. Inframammary candidiasis: -Cont topical nystatin and lidocaine 5. Candidal vulvovaginitis: -Continue Diflucan q3days, completed 2/3 doses, last dose on 10/25. 6. Anxiety and depression: -Continue Trazodone and Lorazepam 7. Chronic Low back pain: -Continue Gabapentin and Tylenol -Cont cyclobenzaprine 8. GERD: -Cont omeprazole 9. DVT prophylaxis -Cont Lovenox Disposition: Awaiting clinical improvement, anticipate discharge in 1-2 days. VS,Fishbone, I+O VS, Fishbone, I+O Laboratory Tests 10/22/20 10:39 Vital Signs Date Time Temp Pulse Resp B/P (MAP) Pulse Ox O2 Delivery O2 Flow Rate FiO2 10/23/20 07:13 16 10/23/20 06:00 98.1 70 118/60 (79) 95 Room Air 10/21/20 09:33 2.0 I&O- Last 24 Hours up to 6 AM 10/23/20 06:00 Intake Total 3002 ml Output Total 2900 ml Balance 102 ml GME ATTESTATION GME ATTESTATION My faculty preceptor for this patient encounter was physically present during the encounter and was fully available. All aspects of the patient interview, examination, medical decision making process, and medical care plan development were reviewed and approved by the faculty preceptor. The faculty preceptor is aware and concurs with the plan as stated in the body of this note and will attest to such by his/her cosignature. ATTENDING NOTE I, Jeffry Townsend MD, have independently examined this patient and performed my own physical exam, as well as reviewed the documentation and edited where necessary. I have discussed in detail with the resident / student the findings and plan of treatment as documented by the resident / student and edited their note. I agree with their findings and treatment plan and have edited their documentation. FARHAT LEWIS OMS-3 October 23, 2020 09:26 JEFFRY TOWNSEND MD October 26, 2020 16:31
[2020-10-23] MEDS ORDERED: MORPHINE 2 MG/ML 1ML VIAL (J2270) IV ONE (14:00)
--- NOTE | 2020-10-23 16:02 | IPNPDOC ---
Subjective General Date Seen: October 23, 2020 Subject Chief Complaint/History Patient is a 30-year-old female with a PMHx of IV drug abuse, Asthma, Nicotine dependence, Migraine headaches, Anxiety / Depression, GERD who presented to the emergency room with bilateral breast pain after she had injected IV Eufemia into her breasts. wbx wnl now, b/l wound cx +, complains of pain, IV infiltrated Current Medications Current Medications Current Medications Medications (Trade) Dose Ordered Sig/Marcus Route PRN Reason Start Time Stop Time Status Last Admin Dose Admin Acetaminophen (Tylenol Tab) 650 mg Q4H PRN PO PAIN OR FEVER 10/19/20 10:20 Cefazolin Sodium/ Dextrose 2 gm/IV Miscellaneous Supplies 50 ml @ 75 mls/hr Q8H IV 10/22/20 15:00 10/23/20 14:53 Ceftaroline Fosamil 600 mg/ Dextrose 50 ml @ 50 mls/hr Q12H IV 10/19/20 19:00 10/22/20 14:01 DC 10/22/20 06:25 Ceftaroline Fosamil 600 mg/ Dextrose 50 ml @ 50 mls/hr Q12H IV 10/19/20 19:00 10/19/20 14:41 DC Clonidine HCl (Catapres) 0.1 mg BID PO 10/20/20 21:00 10/23/20 10:26 Clonidine HCl (Catapres) 0.2 mg BID PO 10/19/20 21:00 10/20/20 13:17 DC 10/19/20 20:29 Cyclobenzaprine HCl (Flexeril) 10 mg Q6HP PRN PO SPASMS 10/22/20 11:05 10/22/20 15:11 Dextrose/Sodium Chloride 1,000 ml @ 100 mls/hr Q10H IV 10/20/20 00:00 10/19/20 21:18 DC Dextrose/Sodium Chloride 1,000 ml @ 100 mls/hr Q10H IV 10/20/20 00:00 10/20/20 11:35 DC 10/20/20 00:08 Enoxaparin Sodium (Lovenox) 30 mg DAILY SC 10/21/20 09:00 10/23/20 09:52 Enoxaparin Sodium (Lovenox) 40 mg DAILY SC 10/20/20 09:00 10/19/20 21:19 DC Fentanyl Citrate (Sublimaze) 25 mcg Q5MP PRN IV PAIN LEVEL 5-10 10/20/20 11:35 10/20/20 12:35 DC Fluconazole (Diflucan) 150 mg Q3D@09 PO 10/19/20 09:00 10/25/20 09:01 10/22/20 08:54 Gabapentin (Neurontin) 300 mg TID PO 10/20/20 16:00 10/23/20 09:52 Gabapentin (Neurontin) 600 mg TID PO 10/19/20 21:00 10/20/20 13:17 DC 10/20/20 12:59 Home Med (Med Rec Complete!) ASDIRECTED XX 10/19/20 06:35 10/19/20 06:37 DC Hydromorphone HCl (Dilaudid) 0.5 mg Q30M PRN IV MODERATE PAIN (PS 5-7) 10/19/20 05:50 10/19/20 08:00 DC 10/19/20 08:00 Hydromorphone HCl (Dilaudid) 0.5 mg Q4HP PRN PO MODERATE/SEVERE PAIN (PS 5-10) 10/19/20 16:00 10/20/20 12:23 DC 10/19/20 20:29 Hydromorphone HCl (Dilaudid) 0.5 mg Q5MP PRN IV PAIN LEVEL 4-7 10/20/20 11:35 10/20/20 12:23 DC Hydromorphone HCl (Dilaudid) 0.5 mg Q6HP PRN PO MODERATE/SEVERE PAIN (PS 5-10) 10/19/20 11:35 10/19/20 16:00 DC 10/19/20 14:58 Lactated Ringer's 1,000 ml @ 100 mls/hr Q10H IV 10/20/20 11:35 10/20/20 12:35 DC Lactobacillus Acidophilus (Bacid) 2 ea BID PO 10/21/20 09:00 10/23/20 09:52 Lidocaine HCl (Lidocaine 5% Oint) Apply to bilateral breasts BID TOP 10/19/20 21:00 10/23/20 09:53 Lorazepam (Ativan) 0.5 mg BID PO 10/20/20 21:00 10/23/20 09:52 Lorazepam (Ativan) 1 mg BID PO 10/19/20 21:00 10/20/20 13:17 DC 10/20/20 12:59 Metoclopramide HCl (REGLAN INJection) 10 mg Q6HP PRN IV NAUSEA OR VOMITING 10/20/20 11:35 10/20/20 12:35 DC Morphine Sulfate (Morphine Sulfate Inj) 2 mg Q4H PRN IV MODERATE PAIN (PS 5-7) 10/19/20 23:10 10/20/20 11:04 DC 10/20/20 06:09 Morphine Sulfate (Morphine Sulfate Inj) 2 mg Q4H PRN IV PAIN LEVEL 8-10 10/20/20 12:25 10/21/20 12:32 DC 10/21/20 09:23 Morphine Sulfate (Morphine Sulfate Inj) 2 mg Q8H PRN IV PAIN LEVEL 8-10 10/21/20 17:31 10/23/20 09:53 Nystatin (Mycostatin Powder, Nystop) Apply under breasts BID TOP 10/19/20 21:00 10/23/20 09:53 Omeprazole (PriLOSEC) 40 mg DAILY PO 10/19/20 09:00 10/23/20 09:52 Ondansetron HCl (ZOFRAN INJection) 4 mg Q4HP PRN IV NAUSEA OR VOMITING 10/20/20 11:35 10/20/20 12:35 DC Ondansetron HCl (Zofran) 4 mg Q12HP PRN PO NAUSEA 10/19/20 13:30 Oxycodone/ Acetaminophen (Percocet 5mg/ 325mg Tablet) 1 tab ASDIRECTED PRN PO PAIN LEVEL 1-4 10/20/20 11:35 10/20/20 12:35 DC Piperacillin Sod/ Tazobactam Sod 3.375 gm/Dextrose 50 ml @ 50 mls/hr Q6H IV 10/19/20 13:00 10/19/20 15:05 DC Tramadol HCl (Ultram) 50 mg Q4HP PRN PO MODERATE PAIN (PS 5-7) 10/21/20 10:40 10/23/20 06:43 Trazodone HCl (Desyrel) 50 mg QHS PRN PO INSOMNIA 10/20/20 18:55 10/22/20 22:26 Trazodone HCl (Desyrel) 150 mg QHS PRN PO INSOMNIA 10/19/20 18:55 10/20/20 18:55 DC 10/19/20 22:44 Vancomycin HCl 1000 mg/IV Miscellaneous Supplies 1 each/ Sodium Chloride 270 ml @ 270 mls/hr Q12H IV 10/19/20 11:15 10/19/20 14:41 DC Allergies Coded Allergies: aripiprazole (Verified Allergy, Severe, anaphylaxis, 02/05/20) buspirone (Verified Allergy, Severe, anaphalaxis, 02/05/20) Sulfa (Sulfonamide Antibiotics) (Verified Allergy, Intermediate, hives, 02/05/20) ketorolac (Verified Allergy, Intermediate, THROAT SWELLING, 02/05/20) NSAIDS (Non-Steroidal Anti-Inflamma (Verified Adverse Reaction, Intermediate, BLEEDING/ULCER - CAN NOT TAKE PER DOCTOR'S REQUEST, 02/05/20) methocarbamol (Verified Adverse Reaction, Intermediate, panic attacks, 02/05/20) metoclopramide (Verified Adverse Reaction, Intermediate, panic attacks, 02/05/20) Objective Physical Examination Examination GENERAL APPEARANCE:Patient seen, laying in bed, awake, alert, and oriented. BREAST: b/l breast cellulitis improving but not resolved yet, s/p b/l I&D with b/l jordy drains and some s/s drainage. tender to palpation b/l HEENT: Normocephalic NECK: Supple LUNGS: breathing comfortably on room air HEART: not tachycardic ABDOMEN: obese , soft EXTREMITIES: spontaneously moving all 4 extremities Vital Signs Vital Signs Date Time Temp Pulse Resp B/P (MAP) Pulse Ox O2 Delivery O2 Flow Rate FiO2 10/23/20 14:01 17 Room Air 10/23/20 10:26 120/68 10/23/20 06:00 98.1 70 95 10/21/20 09:33 2.0 I&Os I&O- Last 24 Hours up to 6 AM 10/23/20 05:59 Intake Total 3465 ml Output Total 3000 ml Balance 465 ml Laboratory Data Labs 24H Laboratory Tests 2 10/23/20 10:25: Immature Granulocyte % (Auto) , Neutrophils (%) (Auto) , Nucleated Red Blood Cells % (auto) 0.0, Neutrophils 57, Band Neutrophils 1, Lymphocytes (Manual) 34, Monocytes (Manual) 2, Eosinophils (Manual) 4H, Metamyelocytes 2H, Red Blood Cell Morphology NORMAL, Platelet Estimate NORMAL, Anion Gap 4L, Glomerular Filtration Rate > 60.0, Calcium Level 8.8, Magnesium Level 1.9, Total Bilirubin 0.1L, Aspartate Amino Transf (AST/SGOT) 51H, Alanine Aminotransferase (ALT/SGPT) 38, Alkaline Phosphatase 168H, Total Protein 6.3L, Albumin 2.0L, Albumin/Globulin Ratio 0.5L CBC/BMP Laboratory Tests 10/23/20 10:25 Microbiology Microbiology 10/21/20 Blood Culture - Preliminary, Resulted No Growth after 48 hours. All Specime... 10/21/20 Blood Culture - Preliminary, Resulted No Growth after 48 hours. All Specime... 10/20/20 Anaerobic Culture - Final, Complete 10/20/20 Abscess Culture - Final, Complete Streptococcus Pyogenes Grp A 10/20/20 Anaerobic Culture - Final, Complete 10/20/20 Abscess Culture - Final, Complete Staphylococcus Aureus 10/19/20 Blood Culture - Preliminary, Resulted No Growth after 72 hours. All specime... 10/19/20 Respiratory Virus Panel (PCR) (ANALISA) - Final, Complete 10/19/20 Blood Culture - Final, Complete Staphylococcus Hominis Ssp Kieran Impression b/l breast abscesses b/l breast cellulitis b/l yeast infection in inframammary folds s/p b/l I&D of breast abscesses on 10/20/20 PLANS: - wound care per breast surgery, daily - monitor cellulitis, better but not resolved, - pain control - abx per primary team, - nystatin to b/l inframammary folds, continue Diflucan , one dose given - dvt ppx - will continue to follow Plan / VTE VTE Prophylaxis Ordered?: Yes EMMY RODRÍGUEZ DO October 23, 2020 16:02
[2020-10-23] MEDS: CYCLOBENZAPRINE 10MG TABLET PO PRN (18:17)
[2020-10-23] MEDS ORDERED: MOM 30ML SUSPENSION UDC PO PRN (18:45)
[2020-10-23] MEDS ORDERED: BISACODYL 5 MG TAB PO PRN (18:45)
[2020-10-23] MEDS: DOCUSATE SODIUM 100MG CAPSULE PO SCH (20:02)
[2020-10-23 22:00] VITALS: BP 122/78
[2020-10-23] MEDS: traZODone 50 MG TAB PO PRN (23:01)
[2020-10-24] MEDS: CYCLOBENZAPRINE 10MG TABLET PO PRN ×3 (02:41→22:53)
[2020-10-24] MEDS: MORPHINE 2 MG/ML 1ML VIAL (J2270) IV PRN ×3 (05:32→18:45)
[2020-10-24 06:00] VITALS: BP 148/62
[2020-10-24 06:37] LABS: HEMATOCRIT 33.9 % (36.0-47.0); HEMOGLOBIN 9.9 g/dl (12.0-15.5); MEAN CORPUSCULAR HGB CONC 29.2 g/dl (32.0-36.5); MEAN CORPUSCULAR VOLUME 78.8 fl (80.0-96.0); PLATELET COUNT, AUTOMATED 523 10^3/uL (150-450); WHITE BLOOD COUNT 9.2 10^3/uL (4.0-10.0)
[2020-10-24] MEDS: ceFAZolin SOD 2 GM in IV 1 EA IV SCH ×3 (06:38→22:53)
[2020-10-24 07:04] LABS: ALT/SGPT 32 U/L (12-78); BILIRUBIN,TOTAL 0.1 MG/DL (0.2-1.0); BLOOD UREA NITROGEN 7 MG/DL (7-18); CALCIUM LEVEL 8.6 MG/DL (8.5-10.1); CARBON DIOXIDE LEVEL 32 MEQ/L (21-32); CHLORIDE LEVEL 103 MEQ/L (98-107); CREATININE FOR GFR 0.64 MG/DL (0.55-1.30); GLOMERULAR FILTRATION RATE > 60.0 (>60); GLUCOSE, FASTING 100 MG/DL (70-100); MAGNESIUM LEVEL 2.1 MG/DL (1.8-2.4); POTASSIUM SERUM 4.3 MEQ/L (3.5-5.1); SODIUM LEVEL 139 MEQ/L (136-145); TOTAL PROTEIN 6.5 GM/DL (6.4-8.2)
[2020-10-24 07:28] LABS: ATYPICAL LYMPH 1 % (0-5); EOSINOPHILS 4 % (0-3); LYMPHOCYTES 27 % (16-44); METAMYELOCYTES 1 % (0-0); MONOCYTES 3 % (0-5); MYELOCYTES 3 % (0-0); NEUTROPHILS 60 % (28-66)
[2020-10-24 07:29] LABS: ANISOCYTOSIS 1+; MICROCYTOSIS 1+; PLATELET ESTIMATE INCREASED (NORMAL); POIKILOCYTOSIS 1+
[2020-10-24 08:48] LABS: FERRITIN 53 NG/ML (8-252); IRON (FE) 20 UG/DL (50-170); PERCENT SATURATION 5.3 % (13.2-45.0); TOTAL IRON BINDING CAPACITY 378 UG/DL (250-450)
[2020-10-24 08:59] LABS: VITAMIN B12 LEVEL 441 PG/ML (247-911)
[2020-10-24] MEDS: ENOXAPARIN 30MG/0.3ML SYRINGE (J1650 PER 10MG) SC SCH (10:08)
[2020-10-24] MEDS: DOCUSATE SODIUM 100MG CAPSULE PO SCH ×2 (10:09→20:50)
[2020-10-24] MEDS: LORazepam 0.5 MG TAB PO SCH ×2 (10:09→20:49)
[2020-10-24] MEDS: GABAPENTIN 300 MG CAP PO SCH ×3 (10:09→20:50)
[2020-10-24] MEDS: LACTOBACILLUS ACIDOPHILUS CAP (BACID) PO SCH ×2 (10:09→20:50)
[2020-10-24] MEDS: NYSTATIN 100,000 UNITS/GM TOPICAL PWD 15 GM TOP SCH ×2 (10:09→20:52)
[2020-10-24] MEDS: OMEPRAZOLE 20 MG CAP PO SCH (10:09)
[2020-10-24] MEDS: LIDOCAINE 5% OINT 30GM TUBE TOP SCH ×2 (10:10→20:52)
[2020-10-24] MEDS: cloNIDine 0.1MG TABLET PO SCH ×2 (10:12→20:56)
[2020-10-24] MEDS: FOLIC ACID 1 MG TAB PO SCH (12:35)
[2020-10-24 14:00] VITALS: BP 118/62; O2SAT 99
[2020-10-24] MEDS: traMADol 50 MG TAB PO PRN ×2 (16:47→20:51)
--- NOTE | 2020-10-24 16:51 | IPNPDOC ---
Text Note Date of Service The patient was seen on 10/24/20. NOTE S Patient's R breast pain continues to improve but has not resolved. She denied development of fever, chills, N/V/D, abd pain and urinary symptoms. Per wound care nurse's note yesterday, B/L wounds drained R>L moderate serosanguineous fluid. She had a normal BM yesterday. 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 HEENT Exam: Normocephalic and atraumatic, EOMI, without sclera icteric, mucous membr. moist/pink, pharynx normal, nares patent. NECK: Supple without lymphadenopathy LUNGS: Clear to auscultation bilaterally with full breath sounds without rales, wheezing, and crackles. Bilateral breasts dressed in wound dressing without significant drainage or discharge. Anne drains in place with minimal drainage. CARDIOVASCULAR: Regular rate and rhythm, normal S1 & S2 without gallops, murmurs, rubs. ABDOMEN: Soft, mild tenderness noted in B/L upper quadrants upon deep palpation, non-distended with normal bowel sounds. No masses or ecchymosis or hepatosp lenomegaly. EXTREMITIES: 2+ pulses in all extremities. No edema, tenderness SKIN: Normal turgor and temperature. No rash, lesion. Multiple tattoos noted on bilateral arms and chest. NEUROLOGICAL: Normal speech. No signs of gross focal neurological deficit. PSYCHIATRIC: Depressed and flat affect. ASSESSMENT AND PLAN: Patient is a 29-year-old female with a past medical history of IV drug use, tobacco dependance, anxiety, and depression who presents with bilateral breast pain, redness, and painful lumps after injecting Eufemia directly at sites on B/L breast on 10/14/2020. She was found to have leukocytosis (WBC 18.2) and her B/L breast U/S showed bilateral collections suggestive of mastitis with breast abscesses. She was admitted and started on ceftaroline. Dr. Zacarias (breast surgery) was consulted and took patient to the OR on 10/20/20 for incision and drainage of B/L breast abscesses, copious amount of purulent drainage was reported. Patient has been afebrile. 1 BCx returned positive for Staph Hominis on 10/19 but subsequent repeat BCxs on 10/21 were negative (likely 2/2 contamination). However, her left and right breast abscess culture grew MSSA (L breast) and Strep Pyogenes (R breast), and her anaerobic cultures have been negative. She was on ceftaroline for 4 days and switched to cefazolin on 10/22, currently on day 3 of cefazolin. Patient was found with low folate (1.0) and was started on PO folate QD. She also had an unremarkable echocardiogram on 10/21 that r/o endocarditis. Anticipate discharge tomorrow with PO cefdinir and wound care recommendation from breast surgery. 1. Bilateral breast abscesses with cellulitis- 2/2 injection of Eufemia on B/L breasts: -B/L wound examined today with drain in place and minimal drainage -Vitals remain stable. Afebrile overnight -Was on ceftaroline for 4 days, now on day 3 of cefazolin -Cont IV abx and switch to PO cefdinir on discharge tomorrow -Patient will need outpatient wound care, awaiting outpatient wound care recommendation from breast surgery -Breast surgery, Dr. Zacarias on consultation; recommendations appreciated -echo negative for endocarditis 2. Diarrhea, resolved: -Patient denied diarrhea -Cont probiotic 3. Nausea, resolved: -Patient reported nausea resolved since admission -Zofran on an as-needed basis. 4. Inframammary candidiasis: -Cont topical nystatin and lidocaine 5. Candidal vulvovaginitis: -Continue Diflucan q3days, completed 2/3 doses, last dose on 10/25. 6. Anxiety and depression: -Continue Trazodone and Lorazepam 7. Chronic Low back pain: -Continue Gabapentin and Tylenol -Cont cyclobenzaprine 8. GERD: -Cont omeprazole 9. DVT prophylaxis -Cont Lovenox Disposition: Anticipate discharge tomorrow on PO cefdinir, awaiting outpatient wound care recommendation from breast surgery. VS,Fishbone, I+O VS, Fishbone, I+O Laboratory Tests 10/23/20 10:25 10/24/20 05:46 Vital Signs Date Time Temp Pulse Resp B/P (MAP) Pulse Ox O2 Delivery O2 Flow Rate FiO2 10/24/20 06:00 98.0 78 20 148/62 (90) 98 Room Air 10/21/20 09:33 2.0 I&O- Last 24 Hours up to 6 AM 10/24/20 06:00 Intake Total 2430 ml Output Total 3350 ml Balance -920 ml GME ATTESTATION GME ATTESTATION My faculty preceptor for this patient encounter was physically present during the encounter and was fully available. All aspects of the patient interview, examination, medical decision making process, and medical care plan development were reviewed and approved by the faculty preceptor. The faculty preceptor is aware and concurs with the plan as stated in the body of this note and will attest to such by his/her cosignature. FARHAT LEWIS OMS-3 October 24, 2020 11:10
[2020-10-24] MEDS: traZODone 50 MG TAB PO PRN (20:56)
[2020-10-24 22:00] VITALS: BP 160/84
[2020-10-25 01:47] VITALS: O2SAT 93
[2020-10-25] MEDS: MORPHINE 2 MG/ML 1ML VIAL (J2270) IV PRN ×2 (01:56→08:12)
[2020-10-25 06:00] VITALS: BP 130/82
[2020-10-25] MEDS: ceFAZolin SOD 2 GM in IV 1 EA IV SCH (06:04)
[2020-10-25] MEDS: traMADol 50 MG TAB PO PRN (06:50)
[2020-10-25] MEDS ORDERED: FOLI1TAB11 PO (07:07)
[2020-10-25] MEDS ORDERED: RISATAB3 PO (07:07)
[2020-10-25] MEDS ORDERED: TRAM50TA2 PO (07:07)
[2020-10-25 07:35] LABS: HEMATOCRIT 33.6 % (36.0-47.0); MEAN CORPUSCULAR HEMOGLOBIN 23.1 pg (27.0-33.0); MEAN CORPUSCULAR HGB CONC 29.8 g/dl (32.0-36.5); MEAN CORPUSCULAR VOLUME 77.8 fl (80.0-96.0); PLATELET COUNT, AUTOMATED 487 10^3/uL (150-450); RED BLOOD COUNT 4.32 10^6/uL (4.00-5.40); WHITE BLOOD COUNT 8.7 10^3/uL (4.0-10.0)
--- NOTE | 2020-10-25 07:39 | IPNPDOC ---
Subjective General Date Seen: October 24, 2020 (7pm) Subject Chief Complaint/History Patient is a 30-year-old female with a PMHx of IV drug abuse, Asthma, Nicotine dependence, Migraine headaches, Anxiety / Depression, GERD who presented to the emergency room with bilateral breast pain after she had injected IV Eufemia into her breasts. Patient complains of pain - asks what pain meds is she going to be discharged on Current Medications Current Medications Current Medications Medications (Trade) Dose Ordered Sig/Marcus Route PRN Reason Start Time Stop Time Status Last Admin Dose Admin Acetaminophen (Tylenol Tab) 650 mg Q4H PRN PO PAIN OR FEVER 10/19/20 10:20 10/24/20 23:03 Bisacodyl (Dulcolax Tab) 10 mg DAILYPRN PRN PO CONSTIPATION 10/23/20 18:45 Cefazolin Sodium/ Dextrose 2 gm/IV Miscellaneous Supplies 50 ml @ 75 mls/hr Q8H IV 10/22/20 15:00 10/25/20 06:04 Ceftaroline Fosamil 600 mg/ Dextrose 50 ml @ 50 mls/hr Q12H IV 10/19/20 19:00 10/22/20 14:01 DC 10/22/20 06:25 Ceftaroline Fosamil 600 mg/ Dextrose 50 ml @ 50 mls/hr Q12H IV 10/19/20 19:00 10/19/20 14:41 DC Clonidine HCl (Catapres) 0.1 mg BID PO 10/20/20 21:00 10/24/20 20:56 Clonidine HCl (Catapres) 0.2 mg BID PO 10/19/20 21:00 10/20/20 13:17 DC 10/19/20 20:29 Cyclobenzaprine HCl (Flexeril) 10 mg Q6HP PRN PO SPASMS 10/22/20 11:05 10/24/20 22:53 Dextrose/Sodium Chloride 1,000 ml @ 100 mls/hr Q10H IV 10/20/20 00:00 10/19/20 21:18 DC Dextrose/Sodium Chloride 1,000 ml @ 100 mls/hr Q10H IV 10/20/20 00:00 10/20/20 11:35 DC 10/20/20 00:08 Docusate Sodium (Colace) 100 mg BID PO 10/23/20 21:00 10/24/20 20:50 Enoxaparin Sodium (Lovenox) 30 mg DAILY SC 10/21/20 09:00 10/24/20 10:08 Enoxaparin Sodium (Lovenox) 40 mg DAILY SC 10/20/20 09:00 10/19/20 21:19 DC Fentanyl Citrate (Sublimaze) 25 mcg Q5MP PRN IV PAIN LEVEL 5-10 10/20/20 11:35 10/20/20 12:35 DC Fluconazole (Diflucan) 150 mg Q3D@09 PO 10/19/20 09:00 10/25/20 09:01 10/22/20 08:54 Folic Acid (Folic Acid) 1 mg DAILY PO 10/24/20 11:00 10/24/20 12:35 Gabapentin (Neurontin) 300 mg TID PO 10/20/20 16:00 10/24/20 20:50 Gabapentin (Neurontin) 600 mg TID PO 10/19/20 21:00 10/20/20 13:17 DC 10/20/20 12:59 Home Med (Med Rec Complete!) ASDIRECTED XX 10/19/20 06:35 10/19/20 06:37 DC Hydromorphone HCl (Dilaudid) 0.5 mg Q30M PRN IV MODERATE PAIN (PS 5-7) 10/19/20 05:50 10/19/20 08:00 DC 10/19/20 08:00 Hydromorphone HCl (Dilaudid) 0.5 mg Q4HP PRN PO MODERATE/SEVERE PAIN (PS 5-10) 10/19/20 16:00 10/20/20 12:23 DC 10/19/20 20:29 Hydromorphone HCl (Dilaudid) 0.5 mg Q5MP PRN IV PAIN LEVEL 4-7 10/20/20 11:35 10/20/20 12:23 DC Hydromorphone HCl (Dilaudid) 0.5 mg Q6HP PRN PO MODERATE/SEVERE PAIN (PS 5-10) 10/19/20 11:35 10/19/20 16:00 DC 10/19/20 14:58 Lactated Ringer's 1,000 ml @ 100 mls/hr Q10H IV 10/20/20 11:35 10/20/20 12:35 DC Lactobacillus Acidophilus (Bacid) 2 ea BID PO 10/21/20 09:00 10/24/20 20:50 Lidocaine HCl (Lidocaine 5% Oint) Apply to bilateral breasts BID TOP 10/19/20 21:00 10/24/20 10:10 Lorazepam (Ativan) 0.5 mg BID PO 10/20/20 21:00 10/24/20 20:49 Lorazepam (Ativan) 1 mg BID PO 10/19/20 21:00 10/20/20 13:17 DC 10/20/20 12:59 Magnesium Hydroxide (Milk Of Magnesia) 30 ml BIDP PRN PO CONSTIPATION 10/23/20 18:45 Metoclopramide HCl (REGLAN INJection) 10 mg Q6HP PRN IV NAUSEA OR VOMITING 10/20/20 11:35 10/20/20 12:35 DC Morphine Sulfate (Morphine Sulfate Inj) 2 mg Q4H PRN IV MODERATE PAIN (PS 5-7) 10/19/20 23:10 10/20/20 11:04 DC 10/20/20 06:09 Morphine Sulfate (Morphine Sulfate Inj) 2 mg Q4H PRN IV PAIN LEVEL 8-10 10/20/20 12:25 10/21/20 12:32 DC 10/21/20 09:23 Morphine Sulfate (Morphine Sulfate Inj) 2 mg Q6HP PRN IV PAIN LEVEL 8-10 10/24/20 12:20 10/25/20 01:56 Morphine Sulfate (Morphine Sulfate Inj) 2 mg Q8H PRN IV PAIN LEVEL 8-10 10/21/20 17:31 10/24/20 12:19 DC 10/24/20 05:32 Nystatin (Mycostatin Powder, Nystop) Apply under breasts BID TOP 10/19/20 21:00 10/24/20 20:52 Omeprazole (PriLOSEC) 40 mg DAILY PO 10/19/20 09:00 10/24/20 10:09 Ondansetron HCl (ZOFRAN INJection) 4 mg Q4HP PRN IV NAUSEA OR VOMITING 10/20/20 11:35 10/20/20 12:35 DC Ondansetron HCl (Zofran) 4 mg Q12HP PRN PO NAUSEA 10/19/20 13:30 Oxycodone/ Acetaminophen (Percocet 5mg/ 325mg Tablet) 1 tab ASDIRECTED PRN PO PAIN LEVEL 1-4 10/20/20 11:35 10/20/20 12:35 DC Piperacillin Sod/ Tazobactam Sod 3.375 gm/Dextrose 50 ml @ 50 mls/hr Q6H IV 10/19/20 13:00 10/19/20 15:05 DC Tramadol HCl (Ultram) 50 mg Q4HP PRN PO MODERATE PAIN (PS 5-7) 10/21/20 10:40 10/25/20 06:50 Trazodone HCl (Desyrel) 50 mg QHS PRN PO INSOMNIA 10/20/20 18:55 10/24/20 20:56 Trazodone HCl (Desyrel) 150 mg QHS PRN PO INSOMNIA 10/19/20 18:55 10/20/20 18:55 DC 10/19/20 22:44 Vancomycin HCl 1000 mg/IV Miscellaneous Supplies 1 each/ Sodium Chloride 270 ml @ 270 mls/hr Q12H IV 10/19/20 11:15 10/19/20 14:41 DC Allergies Coded Allergies: aripiprazole (Verified Allergy, Severe, anaphylaxis, 02/05/20) buspirone (Verified Allergy, Severe, anaphalaxis, 02/05/20) Sulfa (Sulfonamide Antibiotics) (Verified Allergy, Intermediate, hives, 02/05/20) ketorolac (Verified Allergy, Intermediate, THROAT SWELLING, 02/05/20) NSAIDS (Non-Steroidal Anti-Inflamma (Verified Adverse Reaction, Intermediate, BLEEDING/ULCER - CAN NOT TAKE PER DOCTOR'S REQUEST, 02/05/20) methocarbamol (Verified Adverse Reaction, Intermediate, panic attacks, 02/05/20) metoclopramide (Verified Adverse Reaction, Intermediate, panic attacks, 02/05/20) Objective Physical Examination Examination GENERAL APPEARANCE:Patient seen, laying in bed, awake, alert, and oriented. BREAST: right breast cellulitis improving but not resolved yet, left breast cellulitis resolved. s/p b/l I&D with b/l jordy drains and some s/s drainage. tender to palpation b/l HEENT: Normocephalic NECK: Supple LUNGS: breathing comfortably on room air HEART: not tachycardic ABDOMEN: obese , soft EXTREMITIES: spontaneously moving all 4 extremities Vital Signs Vital Signs Date Time Temp Pulse Resp B/P (MAP) Pulse Ox O2 Delivery O2 Flow Rate FiO2 10/25/20 06:50 16 Room Air 10/25/20 06:00 98.1 79 130/82 (98) 92 10/21/20 09:33 2.0 I&Os I&O- Last 24 Hours up to 6 AM 10/25/20 06:00 Intake Total 2860 ml Output Total 1600 ml Balance 1260 ml Laboratory Data Labs 24H Laboratory Tests 2 10/25/20 07:21: CBC/BMP Microbiology Microbiology 10/21/20 Blood Culture - Preliminary, Resulted No Growth after 72 hours. All specime... 10/21/20 Blood Culture - Preliminary, Resulted No Growth after 72 hours. All specime... 10/20/20 Anaerobic Culture - Final, Complete 10/20/20 Abscess Culture - Final, Complete Streptococcus Pyogenes Grp A 10/20/20 Anaerobic Culture - Final, Complete 10/20/20 Abscess Culture - Final, Complete Staphylococcus Aureus 10/19/20 Blood Culture - Final, Complete NO GROWTH AFTER 5 DAYS 10/19/20 Respiratory Virus Panel (PCR) (ANALISA) - Final, Complete 10/19/20 Blood Culture - Final, Complete Staphylococcus Hominis Ssp Kieran Impression b/l breast abscesses b/l breast cellulitis b/l yeast infection in inframammary folds s/p b/l I&D of breast abscesses on 10/20/20 PLANS: - clean wounds with H202 daily - please provide patient supplies for wound dressings at dc: KENNETH Perez, H202 - pain control, will defer choice of pain meds to primary team - abx per primary team, please consider 10-14 d tx as right breast cellulitis still persists - wound check on October 29 in office, leave jordy drains in place till then - recommend f/u with pcp posthospital discharge - d/c planning per primary team Plan / VTE VTE Prophylaxis Ordered?: Yes EMMY RODRÍGUEZ DO October 25, 2020 07:39
[2020-10-25 08:01] LABS: ALBUMIN 2.3 GM/DL (3.2-5.2); ALT/SGPT 27 U/L (12-78); BILIRUBIN,TOTAL 0.1 MG/DL (0.2-1.0); BLOOD UREA NITROGEN 10 MG/DL (7-18); CALCIUM LEVEL 8.6 MG/DL (8.5-10.1); CARBON DIOXIDE LEVEL 30 MEQ/L (21-32); CHLORIDE LEVEL 103 MEQ/L (98-107); CREATININE FOR GFR 0.59 MG/DL (0.55-1.30); GLOMERULAR FILTRATION RATE > 60.0 (>60); GLUCOSE, FASTING 111 MG/DL (70-100); MAGNESIUM LEVEL 2.1 MG/DL (1.8-2.4); POTASSIUM SERUM 4.4 MEQ/L (3.5-5.1); SODIUM LEVEL 138 MEQ/L (136-145); TOTAL PROTEIN 6.9 GM/DL (6.4-8.2)
[2020-10-25] MEDS: FLUCONAZOLE 50MG TABLET PO SCH (08:10)
[2020-10-25] MEDS: DOCUSATE SODIUM 100MG CAPSULE PO SCH (08:10)
[2020-10-25 08:11] VITALS: BP 116/52
[2020-10-25] MEDS: GABAPENTIN 300 MG CAP PO SCH (08:11)
[2020-10-25] MEDS: FOLIC ACID 1 MG TAB PO SCH (08:11)
[2020-10-25] MEDS: ENOXAPARIN 30MG/0.3ML SYRINGE (J1650 PER 10MG) SC SCH (08:11)
[2020-10-25] MEDS: cloNIDine 0.1MG TABLET PO SCH (08:11)
[2020-10-25] MEDS: LACTOBACILLUS ACIDOPHILUS CAP (BACID) PO SCH (08:11)
[2020-10-25] MEDS: LORazepam 0.5 MG TAB PO SCH (08:11)
[2020-10-25] MEDS: NYSTATIN 100,000 UNITS/GM TOPICAL PWD 15 GM TOP SCH (08:12)
[2020-10-25] MEDS: LIDOCAINE 5% OINT 30GM TUBE TOP SCH (08:14)
[2020-10-25] MEDS: OMEPRAZOLE 20 MG CAP PO SCH (08:17)
[2020-10-25 08:30] LABS: ATYPICAL LYMPH 4 % (0-5); EOSINOPHILS 5 % (0-3); LYMPHOCYTES 32 % (16-44); METAMYELOCYTES 2 % (0-0); MONOCYTES 2 % (0-5); MYELOCYTES 2 % (0-0); NEUTROPHILS 51 % (28-66); PLATELET ESTIMATE NORMAL (NORMAL)
[2020-10-25 08:31] LABS: ANISOCYTOSIS 2+; HYPOCHROMASIA 2+; OVALOCYTES 1+
[2020-10-25] MEDS ORDERED: PERC5TAB12 PO (11:19)
[2020-10-25] MEDS ORDERED: MORPHINE 2 MG/ML 1ML VIAL (J2270) IV ONE (11:35)
[2020-10-25] MEDS ORDERED: CEFD1CAP8 PO (11:59)
--- NOTE | 2020-10-25 12:17 | DS.PDOC ---
Discharge Summary General Date of Admission October 20, 2020 at 16:14 Date of Discharge 10/25/20 Primary Care Physician: JAKE RICHARDS DO Attending Physician: JASBIR SWANSON MD Specialist/Consultants Involve: EMMY RODRÍGUEZ DO Discharge Summary PROCEDURES PERFORMED DURING STAY: Bilateral breast abscess incision and drainage ADMITTING DIAGNOSES: 1. Bilateral Breast Abscess with mastitis 2. Intravenous drug use/abuse 3. Vaginal Candidiasis 4. PTSD 5. Fibromyalgia 6. Asthma 7. Anxiety and depression with history of suicide attempt DISCHARGE DIAGNOSES: 1. Bilateral Breast Abscess with mastitis 2. Intravenous drug use/abuse 3. Vaginal Candidiasis 4. PTSD 5. Fibromyalgia 6. Asthma 7. Anxiety and depression with history of suicide attempt COMPLICATIONS/CHIEF COMPLAINT: Breast Abscess & Drug Use. HISTORY OF PRESENT ILLNESS: Patient is a 29-year-old female with a past medical history significant for intravenous drug use, tobacco abuse, anxiety, depression, obesity, presented to the [facility] originally with complaint of bilateral breast pain. Patient stated that 5 days before presentation. She was with her friends and they had convinced her to Tonya into her breasts bilaterally. . She had stated that she was told you can get a better high. This way. Additionally, the patient stated that she preferred this method as she is less likely to have track deras on her arms. In the subsequent days after injecting her breasts. She had noticed pain developing as well as redness. She noticed lumps on both her breasts that were severely tender and prompted her to present to the emergency department. She states that she had some fevers and chills. She denied any other symptoms. Patient states that other than Tonya, she does not use any other drugs. Patient states that she does use clean needles, and although she states that using tonya this time was a one-time thing, She was able to state exactly where the needle exchange program was in [place]. In the emergency department the patient was afebrile. She did have a leukocytosis. She was started on Ceftaroline for empiric coverage. Breast ultrasound was performed which demonstrated subcutaneous edema seen throughout the right breast with irregular heterogeneous collection measuring 4.7 x 3.2 x 2.3 cm in the upper outer quadrant. Subcutaneous edema seen in the left breast with irregular heterogeneous collection measuring 3.8 x 4.2 x 1.6 cm in the upper outer quadrant. Findings were suggestive of mastitis with breast abscesses. The patient was admitted to hospitalist service for further evaluation and management HOSPITAL COURSE: On admission, the patient was taken to the OR for incision and drainage of her bilateral breast abscesses by breast surgery. Patient had Anne drains placed her bilateral breasts. There is noted to be copious amount of purulent drainage or breast abscesses. Cultures were taken from the left and right abscess. Her abscess cultures resulted in Streptococcus pyogenes in the right breast abscess and Staphylococcus aureus in the left breast abscess. Both were sensitive to oxacillin. Therefore, the patient was de-escalated to cefazolin. One of two of her blood cultures did result positive for Staphylococcus Hominis. Repeat blood cultures had been negative. This felt that the patient's one positive blood culture was likely contaminant. She did receive an echocardiogram given her history of IV drug abuse. So significant findings suggested vegetation or endocarditis. During the patient's hospitalization she was continued on IV antibiotics as well as pain control. She was follow by breast surgery with wound care recommendations. She was noted to have vaginal discharge and was started on fluconazole. Once patient's superficial cellulitis had resolved and her abscess drainage had stopped, she was found fit for discharge home with home health. She was discharged with recommendations to take Cefdinir 300mg BID for 10 days. She was instructed to follow wound care instructions per Breast surgery. She was prescribed Tramadol as needed for pain. She was given 4 tabs of percocets to take as needed for severe pain when she has drains removed at the Breast Surgery outpatient office follow-up. Patient was instructed to follow-up with her breast surgeon as instructed. Additionally patient was instructed to follow-up with her PCP. She had stated that she has not seen in PCP in some time and requested a new PCP. Patient was referred to the [facility] clinic for hospital follow-up. Patient was encouraged to avoid IV drug use. She states that she will not use. Patient was also made aware that she should avoid use of Soma with Opioids as this may increase her risk of respiratory depression. Patient was in agreement MEDICAL ISSUES ADDRESSED DURING HOSPITALIZATION: 1. Bilateral breast abscesses with cellulitis- 2/2 injection of Tonya on B/L breasts: -Cultures of breast abscess positive for Streptococcus pyogenes and Staphylococcus aureus. Treated with Ceftaroline and de-escalated to Cefazolin. -Discharged home with Cefdinir for 10 days -Pain medication with Tramadol -4 tabs of Percocet to be used for follow-up with Breast surgery -Wound care instruction per Breast surgery -Patient discharged with drains in place 2. Diarrhea, resolved: -Patient denied diarrhea -Cont probiotic 3. Inframammary candidiasis: -Treated with nystatin powder 4. Candidal vulvovaginitis: -Completed diflucan. 3 doses -Denies discharge on hospital discharge 5. Anxiety and depression: -Continue Trazodone and Lorazepam 6. Chronic Low back pain: -Continue Gabapentin and Tylenol -Patient given cyclobenzaprine inpatient. She takes Soma outpatient. Recommend that patient be taken off Soma given her history of drug abuse and increased risk of OD associated with SOMA and opioids. -Patient instructed not to take SOMA with her tramadol or percocet 7. GERD: -Cont omeprazole DISCHARGE MEDICATIONS: Please see below. ALLERGIES: Please see below. PHYSICAL EXAMINATION ON DISCHARGE: VITAL SIGNS: Please see below. GENERAL: Awake, alert, and oriented. Appears in no acute distress. Lying comfortably in bed HEENT: Atraumatic, normocephalic. Eyes are nonicteric. Trachea is midline. M ucous membranes are pink and moist. NECK: No palpable cervical axillary or supraclavicular lymphadenopathy. CARDIOVASCULAR EXAMINATION: Normal S1, S2. Regular rate and rhythm. No clicks rubs or murmurs CHEST: Bilateral breasts bandaged. Bilateral drains in place without drainage. Mild improved erythema surrounding breast RESPIRATORY EXAMINATION: Clear breath sounds bilaterally. No wheezes , rhonchi, or rales. Symmetric chest expansion ABDOMINAL EXAMINATION: Soft, nondistended. Nontender. morbidly obese. Normoactive bowel sounds EXTREMITIES: No edema.. Full and equal pulses in bilateral upper and lower extremities. Multiple tattoos SKIN: No rashes or lesions. Multiple tattoos. Breast exam as above NEUROLOGICAL EXAMINATION: No focal neurological deficits PSYCHIATRIC EXAMINATION: Mood and affect are appropriate LABORATORY DATA: Please see below. IMAGING: PROCEDURE INFORMATION: Exam: XR Chest Exam date and time: 10/19/2020 6:42 AM Age: 29 years old Clinical indication: Other: Preop TECHNIQUE: Imaging protocol: XR of the chest. Views: 1 view. COMPARISON: CR Chest, 2 view PA, Lat 06/26/2019 8:29 AM FINDINGS: Lungs: Unremarkable. No consolidation. Pleural spaces: Unremarkable. No pleural effusion. No pneumothorax. Heart/Mediastinum: Unremarkable. No cardiomegaly. Bones/joints: Unremarkable. IMPRESSION: No acute findings. Electronically signed by: Zack Leong On 10/19/2020 07:21:35 AM PROCEDURE INFORMATION: Exam: US Left Breast Limited; Cellulitis or Abscess Evaluation US Right Breast Limited; Cellulitis or Abscess Evaluation Exam date and time: 10/19/2020 6:51 AM Age: 29 years old Clinical indication: Breast pain; Bilateral; Additional info: Abscess, bilateral breast TECHNIQUE: Imaging protocol: Left breast ultrasound. Exam limited to the quadrant(s) of clinical concern. Exam focused on the evaluation of cellulitis or abscess. Exam is an emergent request and a non-BIRADS study. Right breast ultrasound. Exam limited to the quadrant(s) of clinical concern. Exam focused on the evaluation of cellulitis or abscess. Exam is an emergent request and a non-BIRADS study. COMPARISON: US Breast(s) Unilat or Bilat 11/14/2013 5:38 PM FINDINGS: Breast: Subcutaneous edema seen throughout the right breast with and irregular heterogeneous collection measuring 4.7 x 3.2 x 2.3 cm in the upper outer quadrant. Subcutaneous edema seen in the left breast with and irregular heterogeneous collection measuring 3.8 x 4.2 x 1.6 centimetres in the upper outer quadrant. IMPRESSION: Bilateral breast subcutaneous edema with heterogeneous ill-defined collections in the upper outer quadrants measuring 4.7 x 3.2 x 2.3 cm on the right and 3.8 x 4.2 x 1.6 cm on the left . Findings are suggestive of mastitis with breast abscesses. Although malignancy is unlikely it cannot be excluded on this exam. Further evaluation and follow-up is suggested. ASSESSMENT: BI-RADS 0 pending clinical evaluation, correlation and follow-up. Electronically signed by: Zack Leong On 10/19/2020 07:44:13 AM PROGNOSIS: Fair ACTIVITY: [As tolerated]. DIET: As tolerated DISCHARGE PLAN: Patient is to be discharged home with home health. She is to continue Cefdinir for a total of 10 days. She is to continue wound care as instructed by Breast Surgery. She is to continue pain medication as prescribed. Patient was instructed to follow-up with her PCP in 5-10 days. She was instructed to avoid IV drug use. Patient was advised not to take SOMA with her opioid pain medications. DISCHARGE CONDITION: [Stable]. TIME SPENT ON DISCHARGE: Greater than 40 minutes. Vital Signs/I&Os Vital Signs Date Time Temp Pulse Resp B/P (MAP) Pulse Ox O2 Delivery O2 Flow Rate FiO2 10/25/20 08:22 16 Room Air 10/25/20 08:11 116/52 10/25/20 06:00 98.1 79 92 10/21/20 09:33 2.0 I&O- Last 24 Hours up to 6 AM 10/25/20 06:00 Intake Total 2860 ml Output Total 1600 ml Balance 1260 ml Laboratory Data Labs 24H Laboratory Tests 2 10/25/20 07:21: Immature Granulocyte % (Auto) , Neutrophils (%) (Auto) , Nucleated Red Blood Cells % (auto) 0.0, Neutrophils 51, Band Neutrophils 2, Lymphocytes (Manual) 32, Monocytes (Manual) 2, Eosinophils (Manual) 5H, Metamyelocytes 2H, Myelocytes 2H, Atypical Lymphocytes 4, Hypochromasia 2+, Anisocytosis 2+, Ovalocytes 1+, Platelet Estimate NORMAL, Anion Gap 5L, Glomerular Filtration Rate > 60.0, Calcium Level 8.6, Magnesium Level 2.1, Total Bilirubin 0.1L, Aspartate Amino Transf (AST/SGOT) 29, Alanine Aminotransferase (ALT/SGPT) 27, Alkaline Phosphatase 166H, Total Protein 6.9, Albumin 2.3L, Albumin/Globulin Ratio 0.5L CBC/BMP Laboratory Tests 10/25/20 07:21 Microbiology Microbiology 10/21/20 Blood Culture - Preliminary, Resulted No Growth after 72 hours. All specime... 10/21/20 Blood Culture - Preliminary, Resulted No Growth after 72 hours. All specime... 10/20/20 Anaerobic Culture - Final, Complete 10/20/20 Abscess Culture - Final, Complete Streptococcus Pyogenes Grp A 10/20/20 Anaerobic Culture - Final, Complete 10/20/20 Abscess Culture - Final, Complete Staphylococcus Aureus 10/19/20 Blood Culture - Final, Complete NO GROWTH AFTER 5 DAYS 10/19/20 Respiratory Virus Panel (PCR) (ANALISA) - Final, Complete 10/19/20 Blood Culture - Final, Complete Staphylococcus Hominis Ssp Kieran Discharge Medications Scheduled Clonidine HCl (Clonidine HCl) 0.2 Mg Tablet, 0.2 MG PO BID, (Reported) Folic Acid (Folic Acid) 1 Mg Tablet, 1 MG PO DAILY Gabapentin (Gabapentin) 600 Mg Tab, 600 MG PO TID, (Reported) L.acidoph/L.bulg/B.bif/S.therm (Luma-Bid Caplet) 1 Each Tablet, 2 EA PO BID Lorazepam (Lorazepam) 1 Mg Tablet, 1 MG PO BID, (Reported) Omeprazole (Omeprazole) 40 Mg Cap, 40 MG PO DAILY, (Reported) Venlafaxine HCl (Venlafaxine HCl ER) 75 Mg Cap.er.24h, 225 MG PO DAILY, (Reported) Scheduled PRN Acetaminophen (Tylenol Extra Strength) 500 Mg Tablet, 1,000 MG PO Q6H PRN for PAIN, (Reported) Carisoprodol (Soma) 350 Mg Tablet, 350 MG PO DAILY PRN for MUSCLE SPASMS, (Reported) Oxycodone HCl/Acetaminophen (Percocet 5-325 mg Tablet) 1 Each Tablet, 1 TAB PO BIDP PRN for SEVERE PAIN (PS 8-10) Take 1 tab BID PRN before breast surgery drain removal Tramadol HCl (Tramadol HCl) 50 Mg Tablet, 50 MG PO Q6HP PRN for MODERATE PAIN (PS 5-7) Trazodone HCl (Trazodone HCl) 150 Mg Tablet, 150 MG PO QHS PRN for INSOMNIA, (Reported) Allergies Coded Allergies: aripiprazole (Verified Allergy, Severe, anaphylaxis, 02/05/20) buspirone (Verified Allergy, Severe, anaphalaxis, 02/05/20) Sulfa (Sulfonamide Antibiotics) (Verified Allergy, Intermediate, hives, 02/05/20) ketorolac (Verified Allergy, Intermediate, THROAT SWELLING, 02/05/20) NSAIDS (Non-Steroidal Anti-Inflamma (Verified Adverse Reaction, Intermediate, BLEEDING/ULCER - CAN NOT TAKE PER DOCTOR'S REQUEST, 02/05/20) methocarbamol (Verified Adverse Reaction, Intermediate, panic attacks, 02/05/20) metoclopramide (Verified Adverse Reaction, Intermediate, panic attacks, 02/05/20) HAMILTON ARANGO DO October 25, 2020 12:16
[2020-10-25 14:00] VITALS: BP 134/84
== END 2020-10-25 15:39 | disposition home health service (06) | DRG 385 ==
LOC: M ED 05:20 → EEVIPCON 10:16 → M ED INP 10:16 → ENRESERV 12:14 → M MSPAV 15:46 → OBSVTOIN 10-20 16:14
PROVIDERS: ADMIT Internal Medicine; ATTEND Internal Medicine
PROC: 0H9V0ZZ Drainage of Bilateral Breast, Open Approach (ICD-10-PCS; principal; 2020-10-20 09:30)
DX: N61.1 Abscess of the breast and nipple (principal); F43.10 Post-traumatic stress disorder, unspecified; F41.9 Anxiety disorder, unspecified; F32.9 Major depressive disorder, single episode, unspecified; M79.7 Fibromyalgia; J45.909 Unspecified asthma, uncomplicated; B37.3 Candidiasis of vulva and vagina; F17.200 Nicotine dependence, unspecified, uncomplicated; E66.9 Obesity, unspecified; B95.5 Unspecified streptococcus as the cause of diseases classified elsewhere; B37.89 Other sites of candidiasis; M54.5 Low back pain; K21.9 Gastro-esophageal reflux disease without esophagitis; Z79.899 Other long term (current) drug therapy; Z88.2 Allergy status to sulfonamides; Z88.6 Allergy status to analgesic agent; Z88.8 Allergy status to other drugs, medicaments and biological substances; G43.909 Migraine, unspecified, not intractable, without status migrainosus; F11.10 Opioid abuse, uncomplicated; F12.10 Cannabis abuse, uncomplicated; R19.7 Diarrhea, unspecified

== ENCOUNTER 2020-11-05 14:39 | Emergency (ER) | payer OTHER ==
[~2020-11-05] VITALS: Ht 170.2 cm; Wt 111.8 kg
[~2020-11-05 14:39] MED LIST changes: +ACET-897 PO; +CEFD1CAP8 PO; +FOLI1TAB11 PO; +RISATAB3 PO; +TRAZ1TAB14 PO
[2020-11-05 14:51] VITALS: BP 176/85
[2020-11-05] MEDS ORDERED: CEPH500C PO (23:02)
[2020-11-06] MEDS ORDERED: RISATAB3 PO (23:02)
[2020-11-06] MEDS ORDERED: CEPH500C PO (23:02)
[2020-11-06] MEDS ORDERED: FOLI1TAB11 PO (23:02)
[2020-11-06] MEDS ORDERED: ATIV1TAB10 PO ×2 (23:02)
== END 2020-11-05 16:59 | disposition home or self-care (01) ==
LOC: M ED 14:39
DX: F19.10 Other psychoactive substance abuse, uncomplicated (principal); G89.4 Chronic pain syndrome; F17.200 Nicotine dependence, unspecified, uncomplicated; Z79.899 Other long term (current) drug therapy; Z88.6 Allergy status to analgesic agent; Z88.2 Allergy status to sulfonamides; Z88.8 Allergy status to other drugs, medicaments and biological substances

== ENCOUNTER 2020-11-05 20:05 | Emergency (ER) | payer OTHER ==
[~2020-11-05] VITALS: Ht 170.2 cm; Wt 111.1 kg
[2020-11-05] MEDS ORDERED: ACETAMINOPHEN TAB 650MG DOSE (2X325MG) PO ONE (21:45)
[2020-11-05 21:56] LABS: AMPHETAMINES LEVEL URINE POSITIVE (NEGATIVE); BARBITURATES URINE NEGATIVE (NEGATIVE); BENZODIAZEPINES URINE NEGATIVE (NEGATIVE); CANNABINOIDS URINE NEGATIVE (NEGATIVE); COCAINE METABOLITE URINE NEGATIVE (NEGATIVE); METHADONE URINE NEGATIVE (NEGATIVE); OPIATES URINE NEGATIVE (NEGATIVE); PHENCYCLIDINE URINE NEGATIVE (NEGATIVE)
[2020-11-05] MEDS ORDERED: cefTRIAXone SOD 1GM VIAL (J0696 PER 250MG) IM ONE (22:10)
[2020-11-05] MEDS ORDERED: LIDOCAINE 1% SDV 5ML VIAL DILUENT ONE (22:10)
[2020-11-05 22:34] LABS: HEMATOCRIT 33.1 % (36.0-47.0); HEMOGLOBIN 9.9 g/dl (12.0-15.5); MEAN CORPUSCULAR HEMOGLOBIN 23.5 pg (27.0-33.0); MEAN CORPUSCULAR HGB CONC 29.9 g/dl (32.0-36.5); MEAN CORPUSCULAR VOLUME 78.6 fl (80.0-96.0); PLATELET COUNT, AUTOMATED 496 10^3/uL (150-450); RED BLOOD COUNT 4.21 10^6/uL (4.00-5.40)
[2020-11-05] MEDS ORDERED: CEPHALEXIN 500 MG CAP PO ONE (23:00)
[2020-11-05] MEDS ORDERED: CEPH500C PO (23:02)
[2020-11-05 23:17] LABS: ACETAMINOPHEN LEVEL < 2.0 UG/ML (10.0-30.0); ALBUMIN 3.2 GM/DL (3.2-5.2); ALT/SGPT 74 U/L (12-78); BILIRUBIN,DIRECT 0.2 MG/DL (0.0-0.2); BILIRUBIN,TOTAL 0.4 MG/DL (0.2-1.0); BLOOD UREA NITROGEN 5 MG/DL (7-18); CALCIUM LEVEL 8.4 MG/DL (8.5-10.1); CARBON DIOXIDE LEVEL 25 MEQ/L (21-32); CHLORIDE LEVEL 108 MEQ/L (98-107); CREATININE FOR GFR 0.71 MG/DL (0.55-1.30); ETHYL ALCOHOL (ETHANOL) < 0.003 % (0.000-0.010); GLOMERULAR FILTRATION RATE > 60.0 (>60); GLUCOSE, FASTING 72 MG/DL (70-100); POTASSIUM SERUM 3.5 MEQ/L (3.5-5.1); SALICYLATE LEVEL 1.8 MG/DL (5.0-30.0); SODIUM LEVEL 142 MEQ/L (136-145); THYROID STIMULATING HORMONE 0.494 uIU/ML (0.358-3.740); TOTAL PROTEIN 7.4 GM/DL (6.4-8.2)
[2020-11-05 23:30] VITALS: BP 130/88
[2020-11-06] MEDS ORDERED: ATIV1TAB10 PO ×2 (23:02)
[2020-11-06] MEDS ORDERED: CEPH500C PO (23:02)
[2020-11-06] MEDS ORDERED: RISATAB3 PO (23:02)
[2020-11-06] MEDS ORDERED: FOLI1TAB11 PO (23:02)
== END 2020-11-05 23:59 | disposition home or self-care (01) ==
LOC: M ED 20:05
DX: N61.1 Abscess of the breast and nipple (principal); F15.10 Other stimulant abuse, uncomplicated

== ENCOUNTER 2020-11-06 14:35 | Emergency (ER) | payer OTHER ==
[~2020-11-06] VITALS: Ht 170.2 cm; Wt 110.0 kg
[~2020-11-06 14:35] MED LIST changes: +CEPH500C PO; -DOXY100C37 PO; +DOXY1CAP62 PO; +OMEP40CA4 PO; -OMEP40CA97 PO
[2020-11-06 14:43] VITALS: BP 154/66
[2020-11-06] MEDS ORDERED: CEPH500C PO (23:02)
[2020-11-06] MEDS ORDERED: RISATAB3 PO (23:02)
[2020-11-06] MEDS ORDERED: FOLI1TAB11 PO (23:02)
[2020-11-06] MEDS ORDERED: ATIV1TAB10 PO ×2 (23:02)
== END 2020-11-06 17:00 | disposition home or self-care (01) ==
LOC: M ED 14:35
DX: F19.10 Other psychoactive substance abuse, uncomplicated (principal); Z60.9 Problem related to social environment, unspecified; Z76.5 Malingerer [conscious simulation]; F17.200 Nicotine dependence, unspecified, uncomplicated; Z79.899 Other long term (current) drug therapy; Z86.59 Personal history of other mental and behavioral disorders

== ENCOUNTER 2020-11-06 18:54 | Inpatient (IN) | payer OTHER ==
[~2020-11-06] VITALS: Ht 170.2 cm; Wt 109.8 kg
[~2020-11-06 18:54] MED LIST changes: +DOXY100C37 PO; -DOXY1CAP62 PO; -OMEP40CA4 PO; +OMEP40CA97 PO
[2020-11-06 21:16] LABS: HEMATOCRIT 34.9 % (36.0-47.0); HEMOGLOBIN 10.2 g/dl (12.0-15.5); MEAN CORPUSCULAR HEMOGLOBIN 22.9 pg (27.0-33.0); MEAN CORPUSCULAR HGB CONC 29.2 g/dl (32.0-36.5); MEAN CORPUSCULAR VOLUME 78.4 fl (80.0-96.0); PLATELET COUNT, AUTOMATED 467 10^3/uL (150-450); RED BLOOD COUNT 4.45 10^6/uL (4.00-5.40); WHITE BLOOD COUNT 7.9 10^3/uL (4.0-10.0)
[2020-11-06 21:33] LABS: HCG, SERUM QUALITATIVE NEGATIVE (NEGATIVE)
[2020-11-06 21:44] LABS: AMPHETAMINES LEVEL URINE NEGATIVE (NEGATIVE); BARBITURATES URINE NEGATIVE (NEGATIVE); BENZODIAZEPINES URINE NEGATIVE (NEGATIVE); CANNABINOIDS URINE NEGATIVE (NEGATIVE); COCAINE METABOLITE URINE NEGATIVE (NEGATIVE); METHADONE URINE NEGATIVE (NEGATIVE); OPIATES URINE NEGATIVE (NEGATIVE); PHENCYCLIDINE URINE NEGATIVE (NEGATIVE)
[2020-11-06 21:55] LABS: ACETAMINOPHEN LEVEL < 2.0 UG/ML (10.0-30.0); ALBUMIN 3.3 GM/DL (3.2-5.2); ALT/SGPT 67 U/L (12-78); BILIRUBIN,DIRECT 0.1 MG/DL (0.0-0.2); BILIRUBIN,TOTAL 0.4 MG/DL (0.2-1.0); BLOOD UREA NITROGEN 7 MG/DL (7-18); CALCIUM LEVEL 9.4 MG/DL (8.5-10.1); CARBON DIOXIDE LEVEL 27 MEQ/L (21-32); CHLORIDE LEVEL 108 MEQ/L (98-107); ETHYL ALCOHOL (ETHANOL) 0.004 % (0.000-0.010); GLOMERULAR FILTRATION RATE > 60.0 (>60); GLUCOSE, FASTING 98 MG/DL (70-100); POTASSIUM SERUM 3.4 MEQ/L (3.5-5.1); SALICYLATE LEVEL 1.8 MG/DL (5.0-30.0); SODIUM LEVEL 141 MEQ/L (136-145); THYROID STIMULATING HORMONE 0.394 uIU/ML (0.358-3.740); TOTAL PROTEIN 7.5 GM/DL (6.4-8.2)
[2020-11-06] MEDS ORDERED: POTASSIUM CHLORIDE 10 MEQ SR TABLET PO ONE (22:00)
[2020-11-06] MEDS ORDERED: GABAPENTIN 300 MG CAP PO ONE (22:20)
[2020-11-06] MEDS ORDERED: cloNIDine 0.2 MG TAB PO ONE (22:20)
[2020-11-06] MEDS ORDERED: RISATAB3 PO (23:02)
[2020-11-06] MEDS ORDERED: ATIV1TAB10 PO ×2 (23:02)
[2020-11-06] MEDS ORDERED: CEPH500C PO (23:02)
[2020-11-06] MEDS ORDERED: FOLI1TAB11 PO (23:02)
[2020-11-07 01:31] LABS: RSV AMPLIFICATION NEGATIVE (NEGATIVE)
[2020-11-07] MEDS ORDERED: LORazepam 2 MG TAB PO PRN (02:15)
[2020-11-07] MEDS ORDERED: MOM 30ML SUSPENSION UDC PO PRN (02:15)
[2020-11-07] MEDS ORDERED: MAALOX 30 ML SUSP *UDC PO PRN (02:15)
[2020-11-07 05:28] VITALS: BP 137/73
[2020-11-07] MEDS: ACETAMINOPHEN TAB 650MG DOSE (2X325MG) PO PRN ×2 (05:35→20:14)
[2020-11-07] MEDS: NICOTINE 21MG/24HR 1 EA TRANSDERMAL TD SCH (09:00)
[2020-11-07] MEDS ORDERED: THIAMINE 100 MG TAB PO SCH (09:00)
[2020-11-07] MEDS ORDERED: MULTIVITAMINS/MINERALS THERAP 1 TAB PO SCH (09:00)
[2020-11-07] MEDS ORDERED: FOLIC ACID 1 MG TAB PO SCH (09:00)
--- NOTE | 2020-11-07 11:24 | MHHPEPDOC ---
General Date Of Admission: November 06, 2020 Legal Status: 9.39 Chief Complaint " I don't want to talk to you. I cannot get up. History of Present Illness HISTORY OF THE PRESENT ILLNESS: Patient is a 30 -year-old , female, who [has a long history of polysubstance abuse and many previous admissions]. Patient apparently was [place] a mall and was claiming that she was going to commit suicide by jumping off a bridge and was brought to emergency room and admitted on 939 status. This morning when the M.D. attempted to interview her. Patient didn't want to open her eyes didn't want to respond and later states that she doesn't feel like talking at all and is actively refusing to be evaluated. She does not appear to be in any acute physical distress and her physical H&P was done which showed no acute medical issues. The initial assessment is incomplete due to her active refusal. Psychiatric Review of Systems Depression (2 or more weeks): depressed mood, suicidal thoughts (unable to evaluate) Светлана (4 or more days of): other (. Unable to evaluate) Psychosis: other (. Unable to evaluate, but does not appear to be grossly psychotic) PTSD: other Anxiety: other Past Psychiatric History Previous Psychiatric Diagnosis: [Many previous psychiatric diagnosis]. Previous Psychiatric Admissions: [Multiple admissions]. Suicide Attempts: [August per her reports of suicidal ideas]. Psychiatric Follow-up: [, Unclear]. Psychiatric medications: [, Unclear]. Past Medical History Medical Problems Long history of GERD and history of , asthma Head Injury: No Seizures: No Surgeries: Yes (, ) Family Medical/Psychiatric HX Medical Problems Unable to evaluate Addiction History cocaine, amphetamines, opioids, methamphetamines, heroin Social History Childhood: [, Unable to evaluate]. Abuse/Trauma:[, Unclear. Unclear]. Education: Unclear. Employment: [Unclear]. Social Support: [, Unable to evaluate]. Legal: [, Unable to evaluate]. Marital: [Apparently was , has 1 son, 7-year-old for history]. Mental Status Examination General Appearance: disheveled Build: overweight Demeanor: withdrawn Eye Contact: avoidant Activity: hostile Behavior: uncooperative, other (, refusing to cooperate) Speech: other Mood: other Affect: other (, refusing to cooperate) Thought Process: other (. Unable to evaluate) Thought Content (Delusions): other Thought Content (Other): other Thought Content (Aggressive): other Perception (Hallucinations): other Perception (Other): other Cognition(Intelligence Est.): other (. Unable to evaluate her) Insight: poor Judgment: Poor Psychosis: Other (unable to evaluate) Diagnoses Rule out depressive disorder NOS History of polysubstance abuse A-FIB/CHADSVASC A-FIB History Current/History of A-Fib/PAF?: No Current PO Anticoag Therapy: No Age/Risk Factor Scoring CHADSVASC: CHADSVASC Response (Comments) Value Gender Risk Factor Female 1 Hx of CHF No 0 Hx of HTN No 0 Hx of Stroke/TIA/or VTE No 0 Hx of Diabetes No 0 Hx of Vascular Disease No 0 Total 1 Treatment Treatment ordered: NONE Assessment Unable to do the full evaluation, but patient does not appear to be acutely agitated or psychotic. We will continue with the supportive therapy CIWA protocol and lethality evaluation Initial Treatment Plan 1. Patient was admitted on a [9.39] status. 2. Complete history was obtained. 3. With patients permission, family will be contacted and database will be expanded. 4. Patients medication regimen will be reviewed and changed accordingly. 5. Patient will be provided with protected environment. 6. Patient will be treated with individual, group, and milieu therapies. 7. Patient will receive supportive psych-education. 8. Discharge planning will commence immediately. 9. Outpatient follow-up treatment will be strongly recommended. 10. The initial treatment plan will focus initially on: * Depression. * Risk for suicide. ESTIMATED LENGTH OF STAY: [3]-[5] DAYS. TIME SPENT COUNSELING AND COORDINATING INITIAL CARE: [35] minutes. Tobacco Cessation Screen If Patient is a Smoker He is a smoker Tobacco Cessation Tx Ordered?: Yes N/A-No Antipsychotics Vital Signs Vital Signs Date Time Temp Pulse Resp B/P (MAP) Pulse Ox O2 Delivery O2 Flow Rate FiO2 11/07/20 05:28 98.5 88 20 137/73 (94) 97 Room Air Laboratory Data 24H Labs Laboratory Tests 2 11/06/20 21:08: Nucleated Red Blood Cells % (auto) 0.0, Anion Gap 6L, Glomerular Filtration Rate > 60.0, Calcium Level 9.4, Total Bilirubin 0.4, Direct Bilirubin 0.1, Aspartate Amino Transf (AST/SGOT) 50H, Alanine Aminotransferase (ALT/SGPT) 67, Alkaline Phosphatase 138H, Total Protein 7.5, Albumin 3.3, Albumin/Globulin Ratio 0.8L, Thyroid Stimulating Hormone (TSH) 0.394, Human Chorionic Gonadotropin, Qual NEGATIVE, Salicylates Level 1.8L, Urine Opiates Screen NEGATIVE, Urine Methadone Screen NEGATIVE, Acetaminophen Level < 2.0L, Urine Barbiturates Screen NEGATIVE, Urine Phencyclidine Screen NEGATIVE, Urine Amphetamines Screen NEGATIVE, Urine Benzodiazepines Screen NEGATIVE, Urine Cocaine Metabolite Screen NEGATIVE, Urine Cannabinoids Screen NEGATIVE, Ethyl Alcohol Level 0.004 11/07/20 00:47: Coronavirus (COVID-19)(PCR) NEGATIVE, Influenza Type A (RT-PCR) NEGATIVE, Influenza Type B (RT-PCR) NEGATIVE, Respiratory Syncytial Virus (PCR) NEGATIVE CBC/BMP Laboratory Tests 11/06/20 21:08 Medications Scheduled Cephalexin (Cephalexin) 500 Mg Capsule, 500 MG PO QID, (Reported) Clonidine HCl (Clonidine HCl) 0.2 Mg Tablet, 0.2 MG PO BID, (Reported) Folic Acid (Folic Acid) 1 Mg Tablet, 1 MG PO DAILY, (Reported) Gabapentin (Gabapentin) 600 Mg Tab, 600 MG PO TID, (Reported) L.acidoph/L.bulg/B.bif/S.therm (Luma-Bid Caplet) 1 Each Tablet, 2 TAB PO BID, (Reported) Lorazepam (Ativan) 0.5 Mg Tablet, 0.5 MG PO DAILY, (Reported) Omeprazole (Omeprazole) 40 Mg Cap, 40 MG PO DAILY, (Reported) Venlafaxine HCl (Venlafaxine HCl ER) 75 Mg Cap.er.24h, 225 MG PO DAILY, (Reported) Scheduled PRN Acetaminophen (Tylenol Extra Strength) 500 Mg Tablet, 1,000 MG PO Q6H PRN for PAIN, (Reported) Lorazepam (Ativan) 0.5 Mg Tablet, 0.5 MG PO Q2D PRN for ANXIETY, (Reported) Allergies Coded Allergies: aripiprazole (Verified Allergy, Severe, anaphylaxis, 02/05/20) buspirone (Verified Allergy, Severe, anaphalaxis, 02/05/20) ketorolac (Verified Allergy, Severe, THROAT SWELLING, 11/06/20) Sulfa (Sulfonamide Antibiotics) (Verified Allergy, Intermediate, hives, 02/05/20) NSAIDS (Non-Steroidal Anti-Inflamma (Verified Adverse Reaction, Intermediate, BLEEDING/ULCER - CAN NOT TAKE PER DOCTOR'S REQUEST, 02/05/20) methocarbamol (Verified Adverse Reaction, Intermediate, panic attacks, 02/05/20) metoclopramide (Verified Adverse Reaction, Intermediate, panic attacks, 02/05/20) VON LUX M.D. November 07, 2020 11:24
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
[2020-11-07] MEDS: OMEPRAZOLE 20 MG CAP PO SCH (12:47)
[2020-11-07] MEDS: CEPHALEXIN 500 MG CAP PO SCH ×3 (12:48→20:14)
[2020-11-07 16:16] VITALS: BP 112/56
[2020-11-07] MEDS: LACTOBACILLUS ACIDOPHILUS CAP (BACID) PO SCH (17:05)
[2020-11-07] MEDS ORDERED: hydrOXYzine 50 MG TAB PO PRN (18:25)
[2020-11-07] MEDS: traZODone 50 MG TAB PO PRN (20:14)
[2020-11-08 06:27] VITALS: BP 94/50
[2020-11-08] MEDS: NICOTINE 21MG/24HR 1 EA TRANSDERMAL TD SCH (08:44)
[2020-11-08] MEDS: CEPHALEXIN 500 MG CAP PO SCH ×4 (08:46→21:32)
[2020-11-08] MEDS: LACTOBACILLUS ACIDOPHILUS CAP (BACID) PO SCH ×2 (08:46→17:23)
[2020-11-08] MEDS: OMEPRAZOLE 20 MG CAP PO SCH (08:46)
[2020-11-08] MEDS: cloNIDine 0.2 MG TAB PO SCH ×2 (09:00→21:33)
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
[2020-11-08] MEDS: VENLAFAXINE **XR** 75MG CAPSULE PO SCH (10:00)
[2020-11-08] MEDS: GABAPENTIN 300 MG CAP PO SCH ×3 (10:00→21:32)
[2020-11-08] MEDS: carisoprodoL 350 MG TAB PO PRN ×2 (11:22→21:33)
[2020-11-08] MEDS: ACETAMINOPHEN TAB 650MG DOSE (2X325MG) PO PRN ×2 (11:22→21:33)
[2020-11-08 16:16] VITALS: BP 128/70
[2020-11-08] MEDS: LORazepam 1 MG TAB PO PRN (21:32)
[2020-11-08] MEDS: traZODone 50 MG TAB PO PRN (21:34)
[2020-11-09 06:55] VITALS: BP 119/59
[2020-11-09] MEDS: NICOTINE 21MG/24HR 1 EA TRANSDERMAL TD SCH (08:00)
[2020-11-09] MEDS: LACTOBACILLUS ACIDOPHILUS CAP (BACID) PO SCH (08:03)
[2020-11-09] MEDS: VENLAFAXINE **XR** 75MG CAPSULE PO SCH (08:03)
[2020-11-09] MEDS: carisoprodoL 350 MG TAB PO PRN (08:04)
[2020-11-09] MEDS: OMEPRAZOLE 20 MG CAP PO SCH (08:04)
[2020-11-09] MEDS: GABAPENTIN 300 MG CAP PO SCH (08:04)
[2020-11-09] MEDS: CEPHALEXIN 500 MG CAP PO SCH ×2 (08:04→12:30)
[2020-11-09 08:06] VITALS: BP 131/78
[2020-11-09] MEDS: cloNIDine 0.2 MG TAB PO SCH (08:06)
[2020-11-09] MEDS: LORazepam 1 MG TAB PO PRN (09:40)
[2020-11-09] MEDS: ACETAMINOPHEN TAB 650MG DOSE (2X325MG) PO PRN (09:40)
--- NOTE | 2020-11-09 10:16 | MHDSPDOC ---
[facility] Discharge Summary Discharge Summary DATE OF ADMISSION: November 06, 2020 at 18:55 DATE OF DISCHARGE: 11/09/2020 DISCHARGE DIAGNOSES: 1. . Depressive disorder, NOS 2. . History of polysubstance abuse REASON FOR ADMISSION: The patient was admitted after she reportedly threatened suicide by jumping off a bridge. The patient has a long history of polysubstance abuse but claims that she is in sobriety and her admission. Tox screen was negative. Patient states that she was having arguments with her boyfriend and got very angry and upset after the argument and made the suicidal statement without really meaning it. CONSULTANTS INVOLVED: TREATMENT AND PROGRESS ON THE UNIT : The patient was seen for supportive therapy and lethality evaluation and continued on her home medication of Effexor and when necessary Ativan by mouth. She was initially very withdrawn, preoccupied, and not cooperating. After the first day she became more verbally responsive and cooperated with the [place] activities and maintained good control. She is a somewhat medication seeking with complain of various pains, but does not appear to be in any acute distress. She is denying any suicidal thoughts. Denies any hallucination or paranoia and denies any serious depression and asking for discharge so she can join her boyfriend with a plan to move out of the area.. HOSPITAL COURSE: The patient didn't have any acting out behavior and is not showing any dangerous suicidal behavior and eating, sleeping well and denies any hallucination, paranoia and denies any thoughts of harming anybody. She appears to be at her baseline mental status and is requesting discharge and does not show any significant lethality issues and does not meet the criteria for involuntary mcfp and will be discharged to her residence. DISCHARGE ASSESSMENT: Stable and not the immediate danger to herself or others MENTAL STATUS EXAMINATION ON DISCHARGE: Patient is a 30-year old female, who is , alert, pressured demanding. Speech is , pressured, relevant. Language skills are fair. Thought processes including: , Relevant. Thought content: No psychosis and denies any suicidal thoughts. Abstract reasoning, and computation: Fair. Description of associations: , Relevant. Description of abnormal or psychotic thoughts: None. Judgment: Fair. Insight: , Poor. Orientation to , oriented. Recent and remote memory: Fair. Attention span and concentration: fair. Language: . Fund of knowledge: Below average. Mood: , Mildly anxious. Affect: somewhat labile but appropriate. MEDICATIONS ON DISCHARGE: Continue home meds, no prescription given - for . - for . - for . PLAN/FOLLOWUP ARRANGEMENTS: As arranged by the city planner. The amount of time spent in the coordination of care for this patient was approximately 40 minutes. ETOH/Disorder Med Rx ETOH/DRUG DISORDER RX: N/A Vital Signs/I&Os Vital Signs Date Time Temp Pulse Resp B/P (MAP) Pulse Ox O2 Delivery O2 Flow Rate FiO2 11/09/20 08:06 131/78 11/09/20 06:55 98.6 68 17 99 Room Air Medications Scheduled Cephalexin (Cephalexin) 500 Mg Capsule, 500 MG PO QID, (Reported) Clonidine HCl (Clonidine HCl) 0.2 Mg Tablet, 0.2 MG PO BID, (Reported) Folic Acid (Folic Acid) 1 Mg Tablet, 1 MG PO DAILY, (Reported) Gabapentin (Gabapentin) 600 Mg Tab, 600 MG PO TID, (Reported) L.acidoph/L.bulg/B.bif/S.therm (Luma-Bid Caplet) 1 Each Tablet, 2 TAB PO BID, (Reported) Omeprazole (Omeprazole) 40 Mg Cap, 40 MG PO DAILY, (Reported) Venlafaxine HCl (Venlafaxine HCl ER) 75 Mg Cap.er.24h, 225 MG PO DAILY, (Reported) Allergies Coded Allergies: aripiprazole (Verified Allergy, Severe, anaphylaxis, 02/05/20) buspirone (Verified Allergy, Severe, anaphalaxis, 02/05/20) ketorolac (Verified Allergy, Severe, THROAT SWELLING, 11/06/20) Sulfa (Sulfonamide Antibiotics) (Verified Allergy, Intermediate, hives, 02/05/20) NSAIDS (Non-Steroidal Anti-Inflamma (Verified Adverse Reaction, Int ermediate, BLEEDING/ULCER - CAN NOT TAKE PER DOCTOR'S REQUEST, 02/05/20) methocarbamol (Verified Adverse Reaction, Intermediate, panic attacks, 02/05/20) metoclopramide (Verified Adverse Reaction, Intermediate, panic attacks, 02/05/20) VON LUX M.D. November 09, 2020 10:16
== END 2020-11-09 13:11 | disposition home or self-care (01) | DRG 754 ==
LOC: M ED 18:54 → M ED INP 18:55 → M PSY 11-07 05:22
PROVIDERS: ADMIT Psychiatry & Neurology Psychiatry; ATTEND Psychiatry & Neurology Psychiatry
DX: F32.9 Major depressive disorder, single episode, unspecified (principal); F17.210 Nicotine dependence, cigarettes, uncomplicated; F19.10 Other psychoactive substance abuse, uncomplicated; G43.709 Chronic migraine without aura, not intractable, without status migrainosus; F43.10 Post-traumatic stress disorder, unspecified; M54.9 Dorsalgia, unspecified; M79.7 Fibromyalgia; K21.9 Gastro-esophageal reflux disease without esophagitis; J45.909 Unspecified asthma, uncomplicated; N61.1 Abscess of the breast and nipple; Z91.5 Personal history of self-harm; Z20.822 Contact with and (suspected) exposure to COVID-19; Z79.899 Other long term (current) drug therapy; Z88.2 Allergy status to sulfonamides; Z88.6 Allergy status to analgesic agent; Z88.8 Allergy status to other drugs, medicaments and biological substances; Z63.0 Problems in relationship with spouse or partner

== ENCOUNTER 2020-12-21 01:32 | Emergency (ER) | payer OTHER ==
[~2020-12-21] VITALS: Ht 167.6 cm; Wt 105.6 kg
[2020-12-21 01:32] VITALS: BP 127/64
[~2020-12-21 01:32] MED LIST changes: +ATIV1TAB10 PO; -DOXY100C37 PO; +DOXY1CAP62 PO; +OLAN1TAB16 PO; -OLAN5TAB PO; +OMEP40CA4 PO; -OMEP40CA97 PO
[2020-12-21] MEDS ORDERED: ATIV1TAB10 PO (19:01)
[2020-12-21] MEDS ORDERED: TRAZ1TAB14 PO (19:01)
== END 2020-12-21 03:10 | disposition left against medical advice (07) ==
LOC: M ED 01:32
DX: Z53.21 Procedure and treatment not carried out due to patient leaving prior to being seen by health care provider (principal)

== ENCOUNTER 2020-12-21 12:07 | Inpatient (IN) | payer OTHER ==
[~2020-12-21] VITALS: Ht 170.2 cm; Wt 105.8 kg
[~2020-12-21 12:07] MED LIST changes: +VANCOMYCIN HCL 750 MG, VIAL MATE ADAPTER 1 EACH in NS 250 ML IV SCH
[2020-12-21] MEDS ORDERED: NS 1,000 ML IV ONE ×2 (15:15→19:15)
[2020-12-21] MEDS ORDERED: LORazepam 2 MG/ML VIAL IV STA (16:10)
[2020-12-21] MEDS ORDERED: ACETAMINOPHEN 325 MG TAB PO ONE (16:15)
[2020-12-21 16:46] LABS: BASO % 0.1 % (0.0-1.0); EOS # 0.1 10^3/uL (0.0-0.5); EOS % 0.4 % (0.0-3.0); HEMATOCRIT 33.1 % (36.0-47.0); HEMOGLOBIN 9.9 g/dl (12.0-15.5); LYMPH # 1.5 10^3/uL (1.5-5.0); LYMPH % 10.6 % (24.0-44.0); MEAN CORPUSCULAR HEMOGLOBIN 22.3 pg (27.0-33.0); MEAN CORPUSCULAR HGB CONC 29.9 g/dl (32.0-36.5); MEAN CORPUSCULAR VOLUME 74.7 fl (80.0-96.0); MONO # 0.6 10^3/uL (0.0-0.8); MONO % 4.1 % (2.0-8.0); PLATELET COUNT, AUTOMATED 327 10^3/uL (150-450); RED BLOOD COUNT 4.43 10^6/uL (4.00-5.40); WHITE BLOOD COUNT 14.3 10^3/uL (4.0-10.0)
--- NOTE | 2020-12-21 17:04 | REP ---
INDICATION: left upper arm ? abscess COMPARISON: None TECHNIQUE: Real time walker scale and color B-mode ultrasound examination using linear high-frequency transducer. FINDINGS: Directed ultrasound examination overlying the left upper extremity demonstrates subcutaneous edema without fluid collection to suggest abscess. IMPRESSION: Generalized subcutaneous edema. No abnormal fluid collection/abscess. <Electronically signed by Oleg Marr > 12/21/20 [id number]
[2020-12-21 17:16] LABS: ALBUMIN 2.8 GM/DL (3.2-5.2); ALT/SGPT 37 U/L (12-78); BILIRUBIN,DIRECT 0.4 MG/DL (0.0-0.2); BILIRUBIN,TOTAL 0.7 MG/DL (0.2-1.0); LIPASE 35 U/L (73-393); TOTAL PROTEIN 7.2 GM/DL (6.4-8.2)
[2020-12-21 17:33] LABS: ERYTHROCYTE SEDIMENTATION RATE 60 mm/hr (0-20)
[2020-12-21 18:30] LABS: AMPHETAMINES LEVEL URINE POSITIVE (NEGATIVE); BARBITURATES URINE NEGATIVE (NEGATIVE); BENZODIAZEPINES URINE NEGATIVE (NEGATIVE); CANNABINOIDS URINE NEGATIVE (NEGATIVE); COCAINE METABOLITE URINE NEGATIVE (NEGATIVE); METHADONE URINE NEGATIVE (NEGATIVE); OPIATES URINE NEGATIVE (NEGATIVE); PHENCYCLIDINE URINE NEGATIVE (NEGATIVE)
[2020-12-21] MEDS ORDERED: ATIV1TAB10 PO (19:01)
[2020-12-21] MEDS ORDERED: TRAZ1TAB14 PO (19:01)
[2020-12-21] MEDS ORDERED: ACETAMINOPHEN TAB 650MG DOSE (2X325MG) PO PRN (19:15)
[2020-12-21] MEDS ORDERED: VANCOMYCIN HCL 1,000 MG, VIAL MATE ADAPTER 1 EACH in NS 250 ML IV SCH (19:15)
[2020-12-21] MEDS ORDERED: MAALOX 30 ML SUSP *UDC PO PRN (19:15)
[2020-12-21] MEDS ORDERED: MOM 30ML SUSPENSION UDC PO PRN (19:15)
[2020-12-21] MEDS ORDERED: ONDANSETRON 4MG/2ML VIAL IV PRN (19:15)
--- NOTE | 2020-12-21 19:26 | HPEPDOC ---
[facility] Medical History & Physical Date of Admission Dec 21, 2020 Date of Service: Dec 21, 2020 Attending Physician: JAMES CONDON MD History and Physical CHIEF COMPLAINT: [30 y/o female c/o LUE swelling and erythema x2 days] HISTORY OF PRESENT ILLNESS: [This is a 30 y/o female with a pmh of polysubstance abuse most recently IV meth and tonya, htn, asthma and gerd who presents to the ED with a complaint of 2 days of swelling, pain and erythema of the proximal LUE. Patient states that she has been using IV meth or tonya (pt is unsure) in this arm the past few days and suddenly began to develop swelling, warmth, erythema and pain in this arm and decided to come into the ED for evaluation. Patient is complaining of associated fevers, chills, nausea. Patient at the time of my exam is denying chest pain, palpitations, cough, hemoptysis, calf pain, sob, vomiting, back pain, hematuria, dysuria. Patient found to have occlusive superficial thrombus of cephalic vein of left arm as well as meets sepsis criteria with fever of 101.1, tachycardia of 108, leukocytosis of 14.3, left arm cellulitis.] PAST MEDICAL HISTORY: 1. [See HPI PAST SURGICAL HISTORY: 1. [Tonsillectomy]. 2. [Cholecystectomy]. 3. [I&D of b/l breast abscesses 4. C section]. SOCIAL HISTORY: Tobacco use:[Current ppd smoker] ETOH: [Denies] Illicit drug use: [IVDA - meth and tonya] FAMILY HISTORY: Reviewed - none pertinent ALLERGIES: Please see below. REVIEW OF SYSTEMS: CONSTITUTIONAL: [See HPI]. HEENT: [Denies uri sx]. CARDIOVASCULAR: [See HPI]. RESPIRATORY: [See HPI]. GASTROINTESTINAL: [See HPI]. GENITOURINARY: [See HPI]. SKIN: [See HPI]. MUSCULOSKELETAL: [Denies acute joint/back pain]. NEUROLOGICAL: [Denies syncope, paresthesias]. ENDOCRINE: [Denies hx of dm]. HEMATOLOGIC/LYMPHATIC: [Denies easy bruising]. HOME MEDICATIONS: Please see below. PHYSICAL EXAMINATION: VITAL SIGNS: Please see below. GENERAL APPEARANCE: [This is an overweight 30 y/o female. She is resting in bed and appear to be uncomfortable d/t pain]. HEENT: [No mass or lesion. EOMI. No scleral icterus. Nares patent. Oral mucosa moist.]. CARDIOVASCULAR: [Borderline tachy rate, regular rhythm. No murmurs, rubs, gallops]. LUNGS: [Decreased breath sounds b/l. No wheezing, rales, rhonchi.]. ABDOMEN: [Soft, nontender]. MUSCULOSKELETAL: [No joint deformity]. EXTREMITIES: [The proximal LUE is grossly edematous with erythema stretching from the elbow to the shoulder. There are no obvious areas of fluctuance. The area is exquisitely tender and patient guards all movement. Peripheral pulses palpable.]. NEUROLOGICAL: [Speech clear. Patient moves all fours freely. A+Ox3. No focal deficits.]. PSYCHIATRIC: [Mood and affect appear appropriate.]. LABORATORY DATA: See below. IMAGING: [Extremity US: FINDINGS: Directed ultrasound examination overlying the left upper extremity demonstrates subcutaneous edema without fluid collection to suggest abscess. IMPRESSION: Generalized subcutaneous edema. No abnormal fluid collection/abscess. ADDENDUM: The cephalic vein demonstrates occlusive thrombus.] MICROBIOLOGY: Please see below. ASSESSMENT: [This is a 30 y/o female with a pmh of polysubstance abuse most recently IV meth and tonya, htn, asthma and gerd who presents to the ED with a complaint of 2 days of swelling, pain and erythema of the proximal LUE. Patient found to have occlusive superficial thrombus of cephalic vein of left arm as well as meets sepsis criteria with fever of 101.1, tachycardia of 108, leukoc ytosis of 14.3, left arm cellulitis.]. . PLAN: 1. [Sepsis secondary to left upper extremity cellulitis - no evidence of abscess on extremity US - Begin IVF, broad spectrum coverage with vancomycin - MRSA pcr ordered - blood cultures - tylenol for fevers - admit to med surg for tx 2. Occlusive superficial thrombophlebitis - as pain control in this patient will be difficult due to her hx of ivda and her allergies to nsaids, i am making the decision to begin anticoagulation on this patient with lovenox bid to help break superficial clot faster and hopefully resolve pain faster leading to shorter duration of pain medications - warm/cool compresses as tolerated 3. HTN - continue clonidine 4. GERD - continue omeprazole 5. Depression/anxiety - continue effexor, trazodone, ativan 6. Nicotine dependence - patch ordered DVT prophylaxis - lovenox]. Vital Signs Vital Signs Date Time Temp Pulse Resp B/P (MAP) Pulse Ox O2 Delivery O2 Flow Rate FiO2 12/21/20 18:50 98.1 90 18 131/66 (87) 97 Room Air Laboratory Data Labs 24H Laboratory Tests 2 12/21/20 16:17: Immature Granulocyte % (Auto) 0.8, Neutrophils (%) (Auto) 84.0H, Lymphocytes (%) (Auto) 10.6L, Monocytes (%) (Auto) 4.1, Eosinophils (%) (Auto) 0.4, Basophils (%) (Auto) 0.1, Neutrophils # (Auto) 12.0H, Lymphocytes # (Auto) 1.5, Monocytes # (Auto) 0.6, Eosinophils # (Auto) 0.1, Basophils # (Auto) 0.0, Nucleated Red Blood Cells % (auto) 0.0, Erythrocyte Sedimentation Rate 60H, Lactic Acid Level 1.0, Total Bilirubin 0.7, Direct Bilirubin 0.4H, Aspartate Amino Transf (AST/SGOT) 34, Alanine Aminotransferase (ALT/SGPT) 37, Alkaline Phosphatase 168H, C-Reactive Protein, Quantitative 15.80H, Total Protein 7.2, Albumin 2.8L, Albumin/Globulin Ratio 0.6L, Lipase 35L, Urine Opiates Screen NEGATIVE, Urine Methadone Screen NEGATIVE, Urine Barbiturates Screen NEGATIVE, Urine Phencyclidine Screen NEGATIVE, Urine Amphetamines Screen POSITIVEH, Urine Benzodiazepines Screen NEGATIVE, Urine Cocaine Metabolite Screen NEGATIVE, Urine Cannabinoids Screen NEGATIVE 12/21/20 16:39: POC Glucose (Misc Panel) 95, POC Sodium (Misc Panel) 135L, POC Potassium (Misc Panel) 3.2L, POC Chloride (Misc Panel) 94L, POC Total CO2 (Misc Panel) 26.0, POC Blood Urea Nitrogen (Misc Panel 5L, POC Ionized Calcium (Misc Panel) 4.5, POC Creatinine (Misc Panel) 0.5L, POC Hematocrit (Misc Panel) 33.0L CBC/BMP Laboratory Tests 12/21/20 16:17 Home Medications Scheduled Clonidine HCl (Clonidine HCl) 0.2 Mg Tablet, 0.2 MG PO BID Gabapentin (Gabapentin) 600 Mg Tab, 600 MG PO TID Omeprazole (Omeprazole) 40 Mg Cap, 40 MG PO DAILY Trazodone HCl (Trazodone HCl) 150 Mg Tablet, 150 MG PO QHS Venlafaxine HCl (Venlafaxine HCl ER) 75 Mg Cap.er.24h, 225 MG PO DAILY Scheduled PRN Lorazepam (Ativan) 0.5 Mg Tablet, 0.5 MG PO DAILY PRN for ANXIETY Allergies Coded Allergies: aripiprazole (Verified Allergy, Severe, anaphylaxis, 02/05/20) buspirone (Verified Allergy, Severe, anaphalaxis, 02/05/20) ketorolac (Verified Allergy, Severe, THROAT SWELLING, 11/06/20) Sulfa (Sulfonamide Antibiotics) (Verified Allergy, Intermediate, hives, 02/05/20) NSAIDS (Non-Steroidal Anti-Inflamma (Verified Adverse Reaction, Interm ediate, BLEEDING/ULCER - CAN NOT TAKE PER DOCTOR'S REQUEST, 02/05/20) methocarbamol (Verified Adverse Reaction, Intermediate, panic attacks, 02/05/20) metoclopramide (Verified Adverse Reaction, Intermediate, panic attacks, 02/05/20) A-FIB/CHADSVASC A-FIB History Current/History of A-Fib/PAF?: No DEDRICK HARRIS Dec 21, 2020 19:26
[2020-12-21] MEDS ORDERED: NICOTINE 21MG/24HR 1 EA TRANSDERMAL TD PRN (20:20)
[2020-12-21 20:39] LABS: RSV AMPLIFICATION NEGATIVE (NEGATIVE)
[2020-12-21] MEDS: GABAPENTIN 300 MG CAP PO SCH (21:00)
[2020-12-21] MEDS: traZODone 50 MG TAB PO SCH (21:00)
[2020-12-21] MEDS: ENOXAPARIN 40MG/0.4ML SYRINGE (J1650 PER 10MG) SC SCH ×2 (21:00→22:49)
[2020-12-21] MEDS ORDERED: VANCOMYCIN HCL 1,000 MG, VIAL MATE ADAPTER 1 EACH in NS 250 ML IV ONE ×2 (21:00→22:00)
[2020-12-22] MEDS ORDERED: POTASSIUM CHL PWD 20 MEQ PACKET PO ONE (00:55)
[2020-12-22 01:27] LABS: FERRITIN 22 NG/ML (8-252); IRON (FE) 13 UG/DL (50-170); PERCENT SATURATION 3.1 % (13.2-45.0); TOTAL IRON BINDING CAPACITY 414 UG/DL (250-450)
[2020-12-22 01:36] LABS: HEMOGLOBIN A1c 5.4 %
[2020-12-22 02:16] VITALS: BP 116/78
[2020-12-22] MEDS: cloNIDine 0.2 MG TAB PO SCH ×3 (03:04→21:00)
[2020-12-22] MEDS: LORazepam 0.5 MG TAB PO PRN (03:04)
[2020-12-22] MEDS: NS 1,000 ML IV SCH ×5 (03:05→21:55)
[2020-12-22 06:10] VITALS: BP 141/68
[2020-12-22 07:18] LABS: HEMATOCRIT 30.6 % (36.0-47.0); HEMOGLOBIN 9.2 g/dl (12.0-15.5); MEAN CORPUSCULAR HEMOGLOBIN 22.3 pg (27.0-33.0); MEAN CORPUSCULAR HGB CONC 30.1 g/dl (32.0-36.5); MEAN CORPUSCULAR VOLUME 74.3 fl (80.0-96.0); PLATELET COUNT, AUTOMATED 273 10^3/uL (150-450); RED BLOOD COUNT 4.12 10^6/uL (4.00-5.40); WHITE BLOOD COUNT 10.1 10^3/uL (4.0-10.0)
[2020-12-22] MEDS ORDERED: KETOROLAC 30 MG/ML 1ML VIAL IV ONE (07:25)
[2020-12-22 07:31] LABS: INR 1.11; PROTHROMBIN TIME 14.5 SECONDS (12.5-14.3)
[2020-12-22 07:32] LABS: PARTIAL THROMBOPLASTIN TIME 32.1 SECONDS (24.2-38.5)
[2020-12-22 07:54] LABS: ALBUMIN 2.4 GM/DL (3.2-5.2); ALT/SGPT 32 U/L (12-78); BILIRUBIN,TOTAL 0.5 MG/DL (0.2-1.0); BLOOD UREA NITROGEN 6 MG/DL (7-18); CARBON DIOXIDE LEVEL 27 MEQ/L (21-32); CHLORIDE LEVEL 104 MEQ/L (98-107); GLOMERULAR FILTRATION RATE > 60.0 (>60); GLUCOSE, FASTING 81 MG/DL (70-100); POTASSIUM SERUM 3.6 MEQ/L (3.5-5.1); SODIUM LEVEL 139 MEQ/L (136-145); TOTAL PROTEIN 6.2 GM/DL (6.4-8.2)
[2020-12-22] MEDS ORDERED: PROMETHAZINE INJ 25 MG/ML VIAL (J2550) IV ONE (08:00)
[2020-12-22] MEDS: ACETAMINOPHEN 500 MG TAB PO SCH ×4 (08:26→21:38)
[2020-12-22] MEDS: SUCRALFATE SUSP 1GM/10ML UD PO SCH ×4 (08:26→21:00)
[2020-12-22] MEDS: ENOXAPARIN 40MG/0.4ML SYRINGE (J1650 PER 10MG) SC SCH ×2 (08:26→21:38)
[2020-12-22] MEDS: PANTOPRAZOLE 40MG TAB (PROTONIX) PO SCH ×2 (08:26→21:39)
[2020-12-22] MEDS: VENLAFAXINE **XR** 75MG CAPSULE PO SCH (08:27)
[2020-12-22] MEDS: VANCOMYCIN HCL 750 MG, VIAL MATE ADAPTER 1 EACH in NS 250 ML IV SCH ×5 (08:27→23:48)
[2020-12-22] MEDS: GABAPENTIN 300 MG CAP PO SCH ×3 (08:27→21:38)
[2020-12-22] MEDS ORDERED: OMEPRAZOLE 20 MG CAP PO SCH (09:00)
--- NOTE | 2020-12-22 11:24 | IPN ---
PROGRESS NOTE DATE: 12/22/2020 SUBJECTIVE: Patient seen and examined at the bedside. Chart has been reviewed. The patient complains of 8/10 pain in the left upper extremity in the upper arm due to cellulitis. The patient has an allergy to NSAIDs, Ketorolac, as well as polysubstance abuse with IV heroin. OBJECTIVE: VITAL SIGNS: Temperature 98.8, T-max of 101.1, pulse 71, respiratory rate 18, blood pressure 141/68, 96% on room air. GENERAL: Awake, alert, and oriented x3. Tattoos bilateral upper extremities. Left upper extremity swelling without erythema. No induration. No crepitus with swelling and tenderness. LUNGS: Clear to auscultation. No wheezing, rales, or rhonchi. HEART: S1, S2. Sinus rhythm. ABDOMEN: Soft, nontender, and nondistended. Positive bowel sounds. EXTREMITIES: No cyanosis, clubbing, or pitting edema. DIAGNOSTIC STUDIES: Laboratory data, microbiology, and imaging studies have been reviewed and in the chart. ASSESSMENT: This is a 30-year-old with polysubstance abuse who admits to using intravenous heroin and Eufemia and active tobacco abuse admitted to left upper extremity swelling and erythema for two days for left upper extremity cellulitis. IMPRESSION AND PLAN: 1. Sepsis secondary to left upper extremity cellulitis. No abscess on ultrasound. Methicillin-resistant Staphylococcus aureus (MRSA) is positive. The patient is currently on vancomycin. Blood cultures pending. T-max of 101 today. For pain control, the patient has a history of IV meth and Eufemia use, currently on Tylenol 1 gram q.i.d. She also says she has an allergy to nonsteroidal anti-inflammatories and Toradol. 2. Occlusive superficial thrombophlebitis. Lovenox currently. Warm and cool compresses. 3. Hypertension on Clonidine. 4. Reflux on omeprazole 5. Depression and anxiety on Effexor, trazodone, and Ativan. 6. Nicotine dependence. Tobacco cessation counseling. Nicotine patch. 7. Polysubstance abuse with methamphetamine, heroin. Avoid narcotics. MTDD
[2020-12-22] MEDS ORDERED: PROMETHAZINE INJ 25 MG/ML VIAL (J2550) IV PRN (12:00)
[2020-12-22 14:00] VITALS: BP 117/72
[2020-12-22] MEDS ORDERED: carisoprodoL 350 MG TAB PO ONE (18:00)
[2020-12-22] MEDS ORDERED: LORazepam 1 MG TAB PO ONE (20:55)
[2020-12-22] MEDS ORDERED: MORPHINE 4 MG/ML 1ML VIAL/SYRINGE (J2270) IV ONE (20:55)
[2020-12-22] MEDS: traZODone 50 MG TAB PO SCH (21:38)
[2020-12-22 22:00] VITALS: BP_SYST 112; BP_SYST 97; BP_DIAS 59; BP_DIAS 72
[2020-12-23] MEDS: VANCOMYCIN HCL 750 MG, VIAL MATE ADAPTER 1 EACH in NS 250 ML IV SCH ×6 (01:39→23:49)
[2020-12-23] MEDS: NS 1,000 ML IV SCH ×3 (04:35→18:03)
[2020-12-23 05:21] VITALS: BP 130/87
[2020-12-23 07:12] LABS: HEMATOCRIT 31.2 % (36.0-47.0); HEMOGLOBIN 8.9 g/dl (12.0-15.5); MEAN CORPUSCULAR HEMOGLOBIN 21.7 pg (27.0-33.0); MEAN CORPUSCULAR HGB CONC 28.5 g/dl (32.0-36.5); MEAN CORPUSCULAR VOLUME 75.9 fl (80.0-96.0); PLATELET COUNT, AUTOMATED 314 10^3/uL (150-450); RED BLOOD COUNT 4.11 10^6/uL (4.00-5.40); WHITE BLOOD COUNT 9.7 10^3/uL (4.0-10.0)
[2020-12-23 07:45] LABS: ALBUMIN 2.2 GM/DL (3.2-5.2); ALT/SGPT 30 U/L (12-78); BILIRUBIN,TOTAL 0.3 MG/DL (0.2-1.0); BLOOD UREA NITROGEN 7 MG/DL (7-18); CARBON DIOXIDE LEVEL 28 MEQ/L (21-32); CHLORIDE LEVEL 107 MEQ/L (98-107); CREATININE FOR GFR 0.46 MG/DL (0.55-1.30); GLOMERULAR FILTRATION RATE > 60.0 (>60); GLUCOSE, FASTING 79 MG/DL (70-100); MAGNESIUM LEVEL 1.9 MG/DL (1.8-2.4); POTASSIUM SERUM 3.6 MEQ/L (3.5-5.1); SODIUM LEVEL 141 MEQ/L (136-145); TOTAL PROTEIN 5.8 GM/DL (6.4-8.2); VANCOMYCIN LEVEL TROUGH 12.1 UG/ML (10.0-20.0)
[2020-12-23] MEDS ORDERED: PERCOCET 5MG/325MG TAB PO SCH (08:00)
[2020-12-23] MEDS ORDERED: HYDROMORPHONE HCL 0.5 MG/ 0.5 ML SYRINGE (J1170 PER 1) IV ONE (08:00)
[2020-12-23] MEDS ORDERED: NALOXONE INJ 0.4MG/1ML VIAL (J2310 PER 1MG) IV PRN (08:05)
[2020-12-23] MEDS: GABAPENTIN 300 MG CAP PO SCH ×3 (08:59→20:58)
[2020-12-23] MEDS: cloNIDine 0.2 MG TAB PO SCH ×2 (08:59→20:58)
[2020-12-23] MEDS: PANTOPRAZOLE 40MG TAB (PROTONIX) PO SCH ×2 (08:59→20:58)
[2020-12-23] MEDS: VENLAFAXINE **XR** 75MG CAPSULE PO SCH (08:59)
[2020-12-23] MEDS: SUCRALFATE SUSP 1GM/10ML UD PO SCH ×4 (08:59→21:00)
[2020-12-23] MEDS: ACETAMINOPHEN 500 MG TAB PO SCH (09:00)
[2020-12-23] MEDS: AUGMENTIN 875 MG TAB PO SCH ×2 (09:00→20:57)
[2020-12-23] MEDS: ENOXAPARIN 40MG/0.4ML SYRINGE (J1650 PER 10MG) SC SCH ×2 (09:10→20:58)
--- NOTE | 2020-12-23 10:12 | IPNPDOC ---
Date Seen The patient was seen on 12/23/20. Progress Note S: crying w 10/10 pain in left ue, requesting more pain meds. allergic to NSAIDs, on acetaminophen qid w/o relief. no fever/chills unable to sleep due to severe pain. O: PE: VITALS: SEE BELOW GENERAL: Crying no respiratory distress. SKIN: erythematous, edematous, tender, left upper arm w/o induration , open ulcers or drainage.warm . LUNGS: Clear to auscultation. No wheezing, rales, or rhonchi. HEART: S1, S2. Sinus rhythm. ABDOMEN: Soft, nontender, and nondistended. Positive bowel sounds. EXTREMITIES: No cyanosis, clubbing, or pitting edema. DIAGNOSTIC STUDIES: Laboratory data, microbiology, and imaging studies have been reviewed and in the chart. ASSESSMENT: This is a 30-year-old with polysubstance abuse who admits to using intravenous heroin and Eufemia and active tobacco abuse admitted to left upper extremity swelling and erythema for two days for left upper extremity cellulitis. IMPRESSION AND PLAN: 1. Sepsis secondary to left upper extremity cellulitis. No abscess on ultrasound. Methicillin-resistant Staphylococcus aureus (MRSA) is positive. The patient is currently on vancomycin. Blood cultures pending. despite iv drug use, after extensive discussion that she will only receive at the most 3-5days of opioids as outpt after hospital discharge, due to severe pain, pt will be given percocet as an inpt until infection improves. 2. Occlusive superficial thrombophlebitis. Lovenox currently. Warm and cool compresses. 3. Hypertension on Clonidine. 4. Reflux on omeprazole 5. Depression and anxiety on Effexor, trazodone, and Ativan. 6. Nicotine dependence. Tobacco cessation counseling. Nicotine patch. 7. Polysubstance abuse with methamphetamine, heroin. pt has severe pain due to her left arm cellulitis and thrombophlebitis for pain control short course of percocet. she agrees with only a 3-5days supply of opioids as outpt. 8. Obesity bmi 36. jonathan protocol and narcan prn due torisk of respiratory acidosis and hypercarbic respiratory failure with obesity and opioids. jonathan protocol. VS, I&O, 24H, Fishbone Vital Signs/I&O Vital Signs Date Time Temp Pulse Resp B/P (MAP) Pulse Ox O2 Delivery O2 Flow Rate FiO2 12/23/20 09:01 17 12/23/20 08:59 130/87 12/23/20 05:21 98.1 69 100 Room Air I&O- Last 24 Hours up to 6 AM 12/23/20 06:00 Intake Total 2300 ml Balance 2300 ml Laboratory Data 24H LABS Laboratory Tests 2 12/23/20 06:52: Nucleated Red Blood Cells % (auto) 0.0, Anion Gap 6L, Glomerular Filtration Rate > 60.0, Calcium Level 8.0L, Magnesium Level 1.9, Total Bilirubin 0.3, Aspartate Amino Transf (AST/SGOT) 28, Alanine Aminotransferase (ALT/SGPT) 30, Alkaline Phosphatase 126H, Total Protein 5.8L, Albumin 2.2L, Albumin/Globulin Ratio 0.6L, Vancomycin Level Trough 12.1 CBC/BMP Laboratory Tests 12/23/20 06:52 Microbiology Microbiology 12/22/20 Blood Culture - Preliminary, Resulted No growth after 24 hours . All specim... LISETH AN MD Dec 23, 2020 10:12
[2020-12-23] MEDS: CIPRODEX OTIC SUSP 7.5ML AD SCH ×2 (10:24→20:59)
[2020-12-23] MEDS: LORazepam 0.5 MG TAB PO PRN (13:41)
[2020-12-23 14:00] VITALS: BP 102/66
[2020-12-23] MEDS: PERCOCET 5MG/325MG TAB PO SCH ×2 (15:11→20:58)
[2020-12-23] MEDS: traZODone 50 MG TAB PO SCH (20:58)
[2020-12-23 22:00] VITALS: BP 155/88
[2020-12-24] MEDS: VANCOMYCIN HCL 750 MG, VIAL MATE ADAPTER 1 EACH in NS 250 ML IV SCH ×5 (01:23→19:00)
[2020-12-24] MEDS: NS 1,000 ML IV SCH (01:23)
[2020-12-24] MEDS: PERCOCET 5MG/325MG TAB PO SCH ×5 (03:26→22:20)
[2020-12-24 06:00] VITALS: BP 146/81
[2020-12-24 07:20] LABS: HEMATOCRIT 30.1 % (36.0-47.0); MEAN CORPUSCULAR HEMOGLOBIN 22.3 pg (27.0-33.0); MEAN CORPUSCULAR HGB CONC 29.9 g/dl (32.0-36.5); MEAN CORPUSCULAR VOLUME 74.5 fl (80.0-96.0); PLATELET COUNT, AUTOMATED 317 10^3/uL (150-450); RED BLOOD COUNT 4.04 10^6/uL (4.00-5.40); WHITE BLOOD COUNT 8.6 10^3/uL (4.0-10.0)
[2020-12-24] MEDS: SUCRALFATE SUSP 1GM/10ML UD PO SCH ×4 (07:30→21:00)
[2020-12-24 07:40] LABS: ALBUMIN 1.9 GM/DL (3.2-5.2); ALT/SGPT 26 U/L (12-78); BILIRUBIN,TOTAL 0.2 MG/DL (0.2-1.0); BLOOD UREA NITROGEN 4 MG/DL (7-18); CARBON DIOXIDE LEVEL 28 MEQ/L (21-32); CHLORIDE LEVEL 108 MEQ/L (98-107); CREATININE FOR GFR 0.44 MG/DL (0.55-1.30); GLOMERULAR FILTRATION RATE > 60.0 (>60); GLUCOSE, FASTING 101 MG/DL (70-100); MAGNESIUM LEVEL 1.7 MG/DL (1.8-2.4); POTASSIUM SERUM 3.3 MEQ/L (3.5-5.1); SODIUM LEVEL 142 MEQ/L (136-145); TOTAL PROTEIN 6.3 GM/DL (6.4-8.2); VANCOMYCIN LEVEL TROUGH 12.7 UG/ML (10.0-20.0)
[2020-12-24] MEDS ORDERED: HYDROMORPHONE HCL 0.5 MG/ 0.5 ML SYRINGE (J1170 PER 1) IV ONE ×3 (07:45→18:30)
[2020-12-24] MEDS: ENOXAPARIN 40MG/0.4ML SYRINGE (J1650 PER 10MG) SC SCH (08:34)
[2020-12-24] MEDS: AUGMENTIN 875 MG TAB PO SCH (08:35)
[2020-12-24] MEDS: GABAPENTIN 300 MG CAP PO SCH ×3 (08:35→21:07)
[2020-12-24] MEDS: cloNIDine 0.2 MG TAB PO SCH ×2 (08:39→21:11)
[2020-12-24] MEDS: PANTOPRAZOLE 40MG TAB (PROTONIX) PO SCH ×2 (08:39→21:08)
[2020-12-24] MEDS: VENLAFAXINE **XR** 75MG CAPSULE PO SCH (08:39)
[2020-12-24] MEDS ORDERED: POTASSIUM CHLORIDE 10 MEQ SR TABLET PO ONE (08:45)
[2020-12-24] MEDS ORDERED: MAG SULF 1GM/100ML (MAG RUN) 1 GM in IV 1 EA IV ONE (09:00)
--- NOTE | 2020-12-24 10:45 | IPN ---
PROGRESS NOTE DATE: 12/24/2020 Patient continues to complain of severe pain but per nursing patient has not been tachycardic or hypertensive. She currently complains of bilateral upper extremity swelling and has a known cephalic vein occlusive thrombosis on the left, on Lovenox 40 subcutaneous twice a day. No fever or chills overnight. Decreasing erythema of the left upper arm but still with edema. Temperature 98.4, pulse 82, respiratory rate 18, blood pressure 119/66, 95% on room air. Generally: Awake, alert, oriented to person, place, and time. No jugular venous distension (JVD), thyromegaly, cervical lymphadenopathy, respiratory distress. Lungs: Clear to auscultation. No wheezing, rales, or rhonchi. Heart: S1, S2, sinus rhythm. Abdomen: Obese, soft, nontender, nondistended. Extremities: No cyanosis or clubbing. Bilateral upper extremities are swollen. Decreasing erythema left upper arm with tenderness without induration or crepitus. Laboratory data, microbiology, imaging studies have been reviewed. ASSESSMENT AND PLAN: This is a 30-year-old female with history of IV drug use with heroin, Eufemia, admitted due to sepsis from left upper extremity cellulitis with methicillin-resistant Staphylococcus aureus (MRSA) screen being positive, currently on IV vancomycin. Current issues are as follows: 1. Left upper extremity cellulitis. 2. Superficial cephalic vein occlusive thrombus in the left upper extremity. Rule out deep venous thrombosis (DVT) of the right. 3. IV drug use history. 4. Chronic neuropathy. 5. Active tobacco abuse. 6. Obesity, body mass index (BMI) of 36.5, at risk of respiratory acidosis with opioids. 7. Polysubstance abuse. PLAN: Patient is continued on IV vancomycin. She has had some improvement of the left upper arm cellulitis but still with significant erythema and edema. Patient did complain yesterday of right ear pain, was treated for otitis externa and media with Cipro ear drops and status post Augmentin, currently on IV vancomycin. Patient has been on Lovenox for superficial occlusive thrombus in the left cephalic vein. Patient may be transitioned for better resolution to Eliquis 10 twice a day for 7 days and 3 more weeks of Eliquis 5 twice a day for a 1 month course for superficial thrombosis for patient's comfort. At this time, she will be sent for right upper extremity ultrasound as well to rule out deep venous thrombosis (DVT) in the right upper extremity. She is otherwise resumed on all her home medications. She has been started on Percocet one tablet every 4 hours due to worsening pain for her left upper extremity cellulitis.
[2020-12-24] MEDS: LORazepam 0.5 MG TAB PO PRN (11:05)
[2020-12-24] MEDS: CIPRODEX OTIC SUSP 7.5ML AD SCH ×2 (11:06→21:00)
[2020-12-24 12:36] LABS: FOLATE 1.9 NG/ML (>5.4); VITAMIN B12 LEVEL 828 PG/ML (247-911)
[2020-12-24 12:46] LABS: HEPATITIS B SURFACE ANTIGEN NEGATIVE (NEGATIVE)
[2020-12-24 13:14] LABS: HEPATITIS B CORE ANTIBODY IGM NEGATIVE (NEGATIVE)
[2020-12-24 13:16] LABS: HEPATITIS A ANTIBODY IGM NEGATIVE (NEGATIVE)
[2020-12-24 14:00] VITALS: BP 141/82
[2020-12-24 14:23] LABS: HEPATITIS C VIRUS ABY INDEX > 11.0 INDEX (<0.8)
--- NOTE | 2020-12-24 15:10 | REP ---
INDICATION: edema r/o dvt. COMPARISON: None. TECHNIQUE: Multiple ultrasonographic images of the deep venous structures of the bilateral upper extremity were obtained to rule out deep venous thrombosis. The contralateral subclavian vein was also interrogated in a limited fashion for comparison. FINDINGS: There is no abnormal echogenic material seen in any of the visualized deep venous structures of the right upper extremity. Coaptation where applicable is appropriate throughout. Abnormal echogenic material is seen throughout the left cephalic vein no abnormal echogenic material was seen in the deep venous system of the left arm. The technologist had noted in the worksheet that evaluation of the left upper extremity ultrasonographically is limited due to swelling and immobility. IMPRESSION: 1. Negative right upper extremity as described above. 2. Abnormal echogenic material in the left cephalic vein not part of the deep system, however, limited evaluation of the deep system of the left upper extremity as described above. A left upper extremity deep vein thrombosis cannot be ruled out by this exam. <Electronically signed by Kyrie Paulino > 12/24/20 [id number]
[2020-12-24] MEDS ORDERED: FUROSEMIDE 40MG/4ML VIAL (J1940) IV ONE (15:45)
[2020-12-24] MEDS: APIXABAN 5 MG TAB (ELIQUIS) PO SCH (21:08)
[2020-12-24] MEDS: traZODone 50 MG TAB PO SCH (21:08)
[2020-12-24 22:00] VITALS: BP 102/55
[2020-12-24] MEDS ORDERED: MORPHINE 4 MG/ML 1ML VIAL/SYRINGE (J2270) IV ONE (23:05)
[2020-12-25] MEDS: VANCOMYCIN HCL 750 MG, VIAL MATE ADAPTER 1 EACH in NS 250 ML IV SCH ×2 (01:03→02:40)
[2020-12-25] MEDS: PERCOCET 5MG/325MG TAB PO SCH ×2 (02:39→05:49)
[2020-12-25 06:00] VITALS: BP 100/56
[2020-12-25] MEDS ORDERED: FUROSEMIDE 40MG/4ML VIAL (J1940) IV ONE (06:00)
[2020-12-25 06:30] LABS: HEMATOCRIT 30.9 % (36.0-47.0); HEMOGLOBIN 9.2 g/dl (12.0-15.5); MEAN CORPUSCULAR HEMOGLOBIN 22.4 pg (27.0-33.0); MEAN CORPUSCULAR HGB CONC 29.8 g/dl (32.0-36.5); MEAN CORPUSCULAR VOLUME 75.2 fl (80.0-96.0); PLATELET COUNT, AUTOMATED 359 10^3/uL (150-450); RED BLOOD COUNT 4.11 10^6/uL (4.00-5.40); WHITE BLOOD COUNT 7.9 10^3/uL (4.0-10.0)
[2020-12-25 07:02] LABS: ALT/SGPT 24 U/L (12-78); BILIRUBIN,TOTAL 0.2 MG/DL (0.2-1.0); BLOOD UREA NITROGEN 7 MG/DL (7-18); CALCIUM LEVEL 8.6 MG/DL (8.5-10.1); CARBON DIOXIDE LEVEL 28 MEQ/L (21-32); CHLORIDE LEVEL 106 MEQ/L (98-107); GLOMERULAR FILTRATION RATE > 60.0 (>60); GLUCOSE, FASTING 102 MG/DL (70-100); POTASSIUM SERUM 3.2 MEQ/L (3.5-5.1); SODIUM LEVEL 142 MEQ/L (136-145); TOTAL PROTEIN 6.5 GM/DL (6.4-8.2)
[2020-12-25] MEDS: SUCRALFATE SUSP 1GM/10ML UD PO SCH ×2 (07:30→12:00)
[2020-12-25] MEDS ORDERED: POTASSIUM CHLORIDE 10 MEQ SR TABLET PO ONE (08:15)
[2020-12-25 08:42] VITALS: BP 102/56
[2020-12-25] MEDS: cloNIDine 0.2 MG TAB PO SCH (08:42)
[2020-12-25] MEDS: PANTOPRAZOLE 40MG TAB (PROTONIX) PO SCH (08:43)
[2020-12-25] MEDS: VENLAFAXINE **XR** 75MG CAPSULE PO SCH (08:43)
[2020-12-25] MEDS: GABAPENTIN 300 MG CAP PO SCH ×2 (08:43→16:29)
[2020-12-25] MEDS: APIXABAN 5 MG TAB (ELIQUIS) PO SCH (08:43)
[2020-12-25] MEDS: CIPRODEX OTIC SUSP 7.5ML AD SCH (08:44)
[2020-12-25] MEDS ORDERED: DOXYCYCLINE HYCLATE 100MG TABLET PO SCH (09:30)
[2020-12-25] MEDS ORDERED: PERCOCET 5MG/325MG TAB PO SCH ×2 (12:00→20:00)
[2020-12-25] MEDS: LORazepam 0.5 MG TAB PO PRN (12:21)
[2020-12-25 14:00] VITALS: BP 141/86
[2020-12-25] MEDS ORDERED: VENL75CA47 PO (16:11)
[2020-12-25] MEDS ORDERED: OXYC1TAB23 PO (16:11)
[2020-12-25] MEDS ORDERED: DOXY100T PO (16:11)
[2020-12-25] MEDS ORDERED: OMEP40CA4 PO (16:11)
[2020-12-25] MEDS ORDERED: ELIQ5TAB4 PO (16:11)
[2020-12-25] MEDS ORDERED: ATIV1TAB10 PO (16:11)
[2020-12-25] MEDS ORDERED: AMOX875T2 PO (16:11)
[2020-12-25] MEDS ORDERED: GABA600T4 PO (16:11)
[2020-12-25] MEDS ORDERED: TRAZ1TAB14 PO (16:11)
--- NOTE | 2020-12-25 16:28 | DS.PDOC ---
Discharge Summary General Date of Admission Dec 21, 2020 at 19:11 Date of Discharge 12/25/2020 Discharge Summary PROCEDURES PERFORMED DURING STAY: [None]. ADMITTING DIAGNOSES / DISCHARGE DIAGNOSES: Left upper extremity cellulitis - likely 2/2 IV drug abuse Superficial cephalic vein occlusive thrombus IV drug abuse history / Polysubstance abuse Chronic neuropathy Active nicotine dependence Obesity Depression / Anxiety / Insomnia DVT prophylaxis COMPLICATIONS/CHIEF COMPLAINT: Left arm pain HISTORY OF PRESENT ILLNESS: Patient is a 30-year-old with a PMHx of Polysubstance abuse (Most recently IV Moly and Meth; history of bilateral breast abscesses), HTN, Asthma, GERD who presented to the emergency room with 2 day history of swelling, pain and erythema of her left upper extremity. Patient reported that she had used IV methamphetamine in her arm over the past few days and suddenly began to develop swelling, warmth and redness of her arm. Patient was admitted to the hospital service for further evaluation and treatment of suspected cellulitis. A duplex ultrasound was completed that revealed evidence of superficial thrombosis of the cephalic vein. Patient was seen and examined at the bedside this morning and again this afternoon. This morning patient denied any chest pain, shortness breath, palpitations, nausea, vomiting, any significant abdominal discomfort, or urinary discomfort. Patient did report swelling over left upper extremity. Patient was seen in this afternoon after her pain medications were reduced. Patient was taken to leave AGAINST MEDICAL ADVICE. I have advised her that we will continue with the current dose of the medication. She is admitted to the pain medication increased in frequency and dose. Patient will be leaving AGAINST MEDICAL ADVICE. Risks and benefits have been discussed with the patient including worsening medical condition, disability and/or . Patient has been advised remain compliant with treatment plan and medications and abstain from any drug use. Of note, patient's boyfriend had visited this afternoon. Nursing staff has repo rted that he was using alcohol swabs, had a small container in hand with patient leaning over the bed. When question by nursing staff, patient's boyfriend had promptly left the facility and avoided staff. HOSPITAL COURSE: Left upper extremity cellulitis - likely 2/2 IV drug abuse - Clinically patient has had improvement of erythema and warmth; there still appears to be some area of induration - Patient is hemodynamically stable and afebrile - s/p Leukocytosis - Blood cultures 12/22: No growth at 72 hours - MRSA screen 12/22: Detected - Will DC Vancomycin - Will start Augmentin and Doxycycline; plan is to continue monitoring patient's improvement as an inpatient. However, she refused to stay and was demanding higher amounts of pain medication - Patient has left the hospital AGAINST MEDICAL ADVICE. She's been advised to follow-up with primary care provider, or return to the ER if she changes her mind Superficial cephalic vein occlusive thrombus - Patient has been transitioned from Lovenox to Eliquis - Resistant benefits were discussed initially with patient's by previous provider and myself - Anticoagulation for one month for patient's comfort was initiated - c/w Eliquis IV drug abuse history / Polysubstance abuse - Patient has been advised to abstain from any drug use moving forward Chronic neuropathy - c/w Gabapentin Active nicotine dependence - Advised smoking cessation - Has been on a nicotine patch while inpatient Obesity - BMI of 36.5 - Complicating medical care Depression / Anxiety / Insomnia - c/w Alprazolam / Venlafaxine / Trazodone DVT prophylaxis - c/w Eliquis DISCHARGE MEDICATIONS: Please see below. ALLERGIES: Please see below. PHYSICAL EXAMINATION ON DISCHARGE: Vitals (See below) General: Lying in bed, was sleeping this morning, not in any acute distress, AAOx3 HEENT: NC, AT CVS: +S1S2 Lungs: Fair air entry b/l, -w/r/r Abdomen: Soft, ND, NT Extremities: Left upper extremity with improvement of erythema. Mild tenderness noted induration noted below the skin of the left upper extremity LABORATORY DATA: Please see below. IMAGING: Extremity US 12/21: Generalized subcutaneous edema. No abnormal fluid collection/abscess. Vascular US 12/24: 1. Negative right upper extremity as described above. 2. Abnormal echogenic material in the left cephalic vein not part of the deep system, however, limited evaluation of the deep system of the left upper extremity as described above. A left upper extremity deep vein thrombosis cannot be ruled out by this exam. ACTIVITY: [As tolerated]. DISCHARGE PLAN: Follow-up with primary care provider within the next 5 days Remain compliant with treatment plan and medications Return to the ER if you experience any problems DISPOSITION: Discharge AGAINST MEDICAL ADVICE DISCHARGE CONDITION: [Stable]. TIME SPENT ON DISCHARGE: 35 minutes. Vital Signs/I&Os Vital Signs Date Time Temp Pulse Resp B/P (MAP) Pulse Ox O2 Delivery O2 Flow Rate FiO2 12/25/20 14:00 98.2 71 18 141/86 (104) 98 Room Air I&O- Last 24 Hours up to 6 AM 12/25/20 06:00 Intake Total 2600 ml Output Total 0 ml Balance 2600 ml Laboratory Data Labs 24H Laboratory Tests 2 12/25/20 06:18: Nucleated Red Blood Cells % (auto) 0.0, Anion Gap 8, Glomerular Filtration Rate > 60.0, Calcium Level 8.6, Magnesium Level 2.0, Total Bilirubin 0.2, Aspartate Amino Transf (AST/SGOT) 15, Alanine Aminotransferase (ALT/SGPT) 24, Alkaline Phosphatase 148H, Total Protein 6.5, Albumin 2.0L, Albumin/Globulin Ratio 0.4L CBC/BMP Laboratory Tests 12/25/20 06:18 Microbiology Microbiology 12/22/20 Blood Culture - Preliminary, Resulted No Growth after 72 hours. All specime... Discharge Medications Scheduled Amoxicillin/Potassium Clav (Amox-Clav 875-125 mg Tablet) 1 Each Tablet, 875 MG PO BID Apixaban (Eliquis) 5 Mg Tab.ds.pk, 5 MG PO ASDIRECTED Take as directed by instructions within starter pack. 10 BID x 7 days 5 BID x 21 days Doxycycline Hyclate (Doxycycline Hyclate) 100 Mg Tablet, 100 MG PO BID@0930,1930 Gabapentin (Gabapentin) 600 Mg Tab, 600 MG PO TID Omeprazole (Omeprazole) 40 Mg Cap, 40 MG PO DAILY Trazodone HCl (Trazodone HCl) 150 Mg Tablet, 150 MG PO QHS Venlafaxine HCl (Venlafaxine HCl ER) 75 Mg Cap.er.24h, 225 MG PO DAILY Scheduled PRN Lorazepam (Ativan) 0.5 Mg Tablet, 0.5 MG PO DAILY PRN for ANXIETY Oxycodone HCl/Acetaminophen (Oxycodone-Acetaminophen 5-325) 1 Each Tablet, 1 TAB PO TIDP PRN for pain Allergies Coded Allergies: aripiprazole (Verified Allergy, Severe, anaphylaxis, 02/05/20) buspirone (Verified Allergy, Severe, anaphalaxis, 02/05/20) ketorolac (Verified Allergy, Severe, THROAT SWELLING, 11/06/20) Sulfa (Sulfonamide Antibiotics) (Verified Allergy, Intermediate, hives, 02/05/20) NSAIDS (Non-Steroidal Anti-Inflamma (Verified Adverse Reaction, Intermediate, BLEEDING/ULCER - CAN NOT TAKE PER DOCTOR'S REQUEST, 02/05/20) methocarbamol (Verified Adverse Reaction, Intermediate, panic attacks, 02/05/20) metoclopramide (Verified Adverse Reaction, Intermediate, panic attacks, 02/05/20) LETICIA THAO MD Dec 25, 2020 16:28
[2020-12-25] MEDS ORDERED: AUGMENTIN 875 MG TAB PO SCH (21:00)
[2020-12-31] MEDS ORDERED: APIXABAN 5 MG TAB (ELIQUIS) PO SCH (21:00)
== END 2020-12-25 16:55 | disposition left against medical advice (07) | DRG 383 ==
LOC: M ED 12:07 → M ED INP 19:11 → EEVIPCON 19:11 → M MS5PR 12-22 02:03
PROVIDERS: ADMIT Internal Medicine; ATTEND Internal Medicine
DX: L03.114 Cellulitis of left upper limb (principal); I80.8 Phlebitis and thrombophlebitis of other sites; I10 Essential (primary) hypertension; G62.9 Polyneuropathy, unspecified; E66.9 Obesity, unspecified; Z68.36 Body mass index [BMI] 36.0-36.9, adult; F15.10 Other stimulant abuse, uncomplicated; F17.200 Nicotine dependence, unspecified, uncomplicated; F11.10 Opioid abuse, uncomplicated; F32.9 Major depressive disorder, single episode, unspecified; F41.9 Anxiety disorder, unspecified; G47.00 Insomnia, unspecified; J45.909 Unspecified asthma, uncomplicated; K21.9 Gastro-esophageal reflux disease without esophagitis; Z79.899 Other long term (current) drug therapy; Z88.6 Allergy status to analgesic agent; Z88.2 Allergy status to sulfonamides; Z88.8 Allergy status to other drugs, medicaments and biological substances

== ENCOUNTER 2021-02-26 09:01 | Emergency (ER) | payer OTHER ==
[~2021-02-26 09:01] MED LIST changes: +AMOX875T2 PO; +DOXY100T PO; +ELIQ5TAB4 PO; -VANCOMYCIN HCL 750 MG, VIAL MATE ADAPTER 1 EACH in NS 250 ML IV SCH
[2021-02-26 09:33] VITALS: BP 126/58
[2021-02-26 10:11] LABS: HEMATOCRIT 37.6 % (36.0-47.0); HEMOGLOBIN 11.4 g/dl (12.0-15.5); MEAN CORPUSCULAR HEMOGLOBIN 23.4 pg (27.0-33.0); MEAN CORPUSCULAR HGB CONC 30.3 g/dl (32.0-36.5); MEAN CORPUSCULAR VOLUME 77.2 fl (80.0-96.0); PLATELET COUNT, AUTOMATED 371 10^3/uL (150-450); RED BLOOD COUNT 4.87 10^6/uL (4.00-5.40); WHITE BLOOD COUNT 7.8 10^3/uL (4.0-10.0)
[2021-02-26 10:45] LABS: HCG, SERUM QUALITATIVE NEGATIVE (NEGATIVE)
[2021-02-26 10:47] LABS: BLOOD UREA NITROGEN 8 MG/DL (7-18); CREATININE FOR GFR 0.58 MG/DL (0.55-1.30); GLUCOSE, FASTING 86 MG/DL (70-100)
[2021-02-26 10:48] LABS: ACETAMINOPHEN LEVEL < 2.0 UG/ML (10.0-30.0); ALBUMIN 3.2 GM/DL (3.2-5.2); ALT/SGPT 48 U/L (12-78); BILIRUBIN,DIRECT 0.2 MG/DL (0.0-0.2); BILIRUBIN,TOTAL 0.5 MG/DL (0.2-1.0); CARBON DIOXIDE LEVEL 25 MEQ/L (21-32); CHLORIDE LEVEL 109 MEQ/L (98-107); ETHYL ALCOHOL (ETHANOL) < 0.003 % (0.000-0.010); GLOMERULAR FILTRATION RATE > 60.0 (>60); POTASSIUM SERUM 3.8 MEQ/L (3.5-5.1); SALICYLATE LEVEL < 1.7 MG/DL (5.0-30.0); SODIUM LEVEL 142 MEQ/L (136-145); THYROID STIMULATING HORMONE 0.578 uIU/ML (0.358-3.740); TOTAL PROTEIN 6.9 GM/DL (6.4-8.2)
== END 2021-02-26 10:20 | disposition left against medical advice (07) ==
LOC: M ED 09:01
DX: F29 Unspecified psychosis not due to a substance or known physiological condition (principal); Z53.9 Procedure and treatment not carried out, unspecified reason; F43.10 Post-traumatic stress disorder, unspecified; F32.9 Major depressive disorder, single episode, unspecified; F19.10 Other psychoactive substance abuse, uncomplicated; M79.7 Fibromyalgia; K21.9 Gastro-esophageal reflux disease without esophagitis; Z88.2 Allergy status to sulfonamides; Z88.6 Allergy status to analgesic agent; Z88.8 Allergy status to other drugs, medicaments and biological substances; Z79.899 Other long term (current) drug therapy; Z79.01 Long term (current) use of anticoagulants

== ENCOUNTER 2021-02-28 20:05 | Inpatient (IN) | payer MEDICAID, OTHER ==
[~2021-02-28] VITALS: Ht 170.2 cm; Wt 98.7 kg
[2021-02-28 22:18] LABS: URINE PREG TEST NEGATIVE (NEGATIVE)
[2021-02-28] MEDS ORDERED: LORazepam 0.5 MG TAB PO ONE (22:40)
[2021-02-28 22:41] LABS: AMPHETAMINES LEVEL URINE POSITIVE (NEGATIVE); BARBITURATES URINE NEGATIVE (NEGATIVE); BENZODIAZEPINES URINE NEGATIVE (NEGATIVE); CANNABINOIDS URINE NEGATIVE (NEGATIVE); COCAINE METABOLITE URINE NEGATIVE (NEGATIVE); METHADONE URINE NEGATIVE (NEGATIVE); OPIATES URINE NEGATIVE (NEGATIVE); PHENCYCLIDINE URINE NEGATIVE (NEGATIVE)
[2021-02-28 22:51] LABS: ALBUMIN 2.9 GM/DL (3.2-5.2); ALT/SGPT 36 U/L (12-78); BILIRUBIN,DIRECT < 0.1 MG/DL (0.0-0.2); BILIRUBIN,TOTAL 0.2 MG/DL (0.2-1.0); BLOOD UREA NITROGEN 11 MG/DL (7-18); CALCIUM LEVEL 8.7 MG/DL (8.5-10.1); CARBON DIOXIDE LEVEL 23 MEQ/L (21-32); CHLORIDE LEVEL 108 MEQ/L (98-107); CK-MB VALUE MASS < 1.0 NG/ML (<3.6); CPK CREATINE PHOSPHOKINASE 41 U/L (26-192); ETHYL ALCOHOL (ETHANOL) < 0.003 % (0.000-0.010); GLOMERULAR FILTRATION RATE > 60.0 (>60); GLUCOSE, FASTING 109 MG/DL (70-100); MB/CK RELATIVE INDEX 2.44 (< OR =4); POTASSIUM SERUM 3.9 MEQ/L (3.5-5.1); SODIUM LEVEL 142 MEQ/L (136-145); TOTAL PROTEIN 6.4 GM/DL (6.4-8.2); TROPONIN I < 0.02 NG/ML (< 0.10)
[2021-02-28 22:52] LABS: ACETAMINOPHEN LEVEL 5.9 UG/ML (10.0-30.0); SALICYLATE LEVEL < 1.7 MG/DL (5.0-30.0); THYROID STIMULATING HORMONE 0.533 uIU/ML (0.358-3.740)
[2021-02-28 23:11] LABS: HEMATOCRIT 34.9 % (36.0-47.0); HEMOGLOBIN 10.7 g/dl (12.0-15.5); MEAN CORPUSCULAR HEMOGLOBIN 23.8 pg (27.0-33.0); MEAN CORPUSCULAR HGB CONC 30.7 g/dl (32.0-36.5); MEAN CORPUSCULAR VOLUME 77.7 fl (80.0-96.0); PLATELET COUNT, AUTOMATED 372 10^3/uL (150-450); RED BLOOD COUNT 4.49 10^6/uL (4.00-5.40); WHITE BLOOD COUNT 8.3 10^3/uL (4.0-10.0)
--- NOTE | 2021-03-01 00:06 | REPVR ---
PROCEDURE INFORMATION: Exam: CT Cervical Spine Without Contrast Exam date and time: 02/28/2021 9:30 PM Age: 30 years old Clinical indication: Neck pain; Additional info: Trauma TECHNIQUE: Imaging protocol: Computed tomography images of the cervical spine without contrast. Radiation optimization: All CT scans at this facility use at least one of these dose optimization techniques: automated exposure control; mA and/or kV adjustment per patient size (includes targeted exams where dose is matched to clinical indication); or iterative reconstruction. COMPARISON: CT Spine,cervical w/o contrast 11/20/2018 5:41 PM FINDINGS: Bones/joints: Nonspecific straightening. Vertebral body height and AP alignment is preserved. No acute cervical spine fracture. 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 This is stable. Discs/Spinal canal/Neural foramina: No definite significant central canal stenosis within limitations of technique. Lungs: Lung apices are normal. Pleural spaces: No visible pneumothorax. Soft tissues: Unremarkable. IMPRESSION: No acute cervical spine fracture. Electronically signed by: Marcus Godoy On 03/01/2021 00:06:18 AM
--- NOTE | 2021-03-01 00:08 | REPVR ---
PROCEDURE INFORMATION: Exam: CT Head Without Contrast Exam date and time: 02/28/2021 9:30 PM Age: 30 years old Clinical indication: Injury or trauma; Fall; Concussion/head injury TECHNIQUE: Imaging protocol: Computed tomography of the head without contrast. Radiation optimization: All CT scans at this facility use at least one of these dose optimization techniques: automated exposure control; mA and/or kV adjustment per patient size (includes targeted exams where dose is matched to clinical indication); or iterative reconstruction. COMPARISON: CT Head without contrast 12/28/2018 9:18 PM FINDINGS: Brain: Normal. No hemorrhage. Unremarkable white matter. No mass effect. Cerebral ventricles: No ventriculomegaly. Paranasal sinuses: Visualized sinuses are unremarkable. No fluid levels. Mastoid air cells: Visualized mastoid air cells are well aerated. Bones/joints: Unremarkable. No acute fracture. Soft tissues: Unremarkable. IMPRESSION: No acute intracranial abnormality. Electronically signed by: Marcus Godoy On 03/01/2021 00:07:53 AM
--- NOTE | 2021-03-01 00:21 | REPVR ---
PROCEDURE INFORMATION: Exam: XR Thoracic Spine Exam date and time: 03/01/2021 12:03 AM Age: 30 years old Clinical indication: Other: Traums; Additional info: Trauma TECHNIQUE: Imaging protocol: XR of the thoracic spine. Views: 3 views. COMPARISON: CR PORTABLE CHEST X-RAY 10/19/2020 6:25 AM FINDINGS: Bones/joints: Minimal dextroconvex curvature. Vertebral body height and AP alignment is preserved. No acute fracture. Soft tissues: Unremarkable. Intraperitoneal space: Previous cholecystectomy. IMPRESSION: No acute osseous abnormality. Electronically signed by: Marcus Godoy On 03/01/2021 00:21:23 AM
--- NOTE | 2021-03-01 00:22 | REPVR ---
PROCEDURE INFORMATION: Exam: XR Lumbosacral Spine Exam date and time: 03/01/2021 12:03 AM Age: 30 years old Clinical indication: Other: Trauma TECHNIQUE: Imaging protocol: XR of the lumbosacral spine. Views: 4 or 5 views. COMPARISON: CR Spine. Lumbosacral, complete 03/07/2015 11:56 AM FINDINGS: Bones/joints: Nonspecific straightening. Vertebral body height and AP alignment is preserved. Minimal prevertebral osteophytosis. No acute fracture. No osseous destruction. Soft tissues: Unremarkable. Intraperitoneal space: Previous cholecystectomy. IMPRESSION: No acute osseous abnormality. Electronically signed by: Marcus Godoy On 03/01/2021 00:21:37 AM
[2021-03-01 05:04] LABS: RSV AMPLIFICATION NEGATIVE (NEGATIVE)
[2021-03-01] MEDS ORDERED: ATIV1TAB10 PO (06:05)
[2021-03-01] MEDS ORDERED: HOME MED LIST COMPLETE! XX SCH (06:05)
[2021-03-01] MEDS ORDERED: CLON0.2T PO (06:05)
[2021-03-01] MEDS ORDERED: GABA600T4 PO (06:05)
[2021-03-01] MEDS ORDERED: TRAZ150T90 PO (06:05)
[2021-03-01] MEDS ORDERED: cloNIDine 0.2 MG TAB PO ONE (08:20)
[2021-03-01] MEDS ORDERED: LORazepam 0.5 MG TAB PO ONE (08:20)
[2021-03-01] MEDS ORDERED: NICOTINE 21MG/24HR 1 EA TRANSDERMAL TD PRN (12:40)
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
[2021-03-01] MEDS ORDERED: MAALOX 30 ML SUSP *UDC PO PRN (13:05)
[2021-03-01] MEDS ORDERED: MOM 30ML SUSPENSION UDC PO PRN (13:05)
[2021-03-01] MEDS: GABAPENTIN 300 MG CAP PO SCH ×2 (16:30→20:15)
[2021-03-01 16:53] VITALS: BP 127/69
[2021-03-01] MEDS: LORazepam 0.5 MG TAB PO PRN (16:59)
[2021-03-01] MEDS: ACETAMINOPHEN TAB 650MG DOSE (2X325MG) PO PRN (16:59)
--- NOTE | 2021-03-01 18:41 | HPEPDOC ---
[facility] Medical History & Physical Date of Admission Mar 01, 2021 Date of Service: Mar 01, 2021 History and Physical CHIEF COMPLAINT: Brought in by the police HISTORY OF PRESENT ILLNESS: 30-year-old female with a past medical history of PTSD and PCOS. This is what patient reported, chart review there is also history of concussion, DVT of the left upper extremity (previously on apixaban), and multiple injuries and fractu res; as well as polysubstance abuse, depression, and multiple admissions for suicide attempts by overdose. Patient was brought to the emergency room department along with her significant other via police after she was found in an abandoned building doing IV heroin. She reported using drugs in order to manage her chronic pain. Although, she did not admit to suicidal ideations at this junction, she did admit to during psych evaluation. Of note, her significant other is also admitted. Reportedly, they were " clean for 2 days" but relapsed. Prior to this relapse they were planning to go to [facility]. Presently, she complains of lower back pain which she states was when the police pushed her down onto the floor. She denied saddle area numbness, bowel bladder incontinence. There was no focal neurological deficit reported She denies headaches, chest pain, palpitations, abdominal pain, nausea, vomiting, problems with urination or bowel movements PAST MEDICAL HISTORY: As mentioned above PAST SURGICAL HISTORY: She did not offer any surgical history SOCIAL HISTORY: Reports being homeless. She admits to meth, and heroin use. She also endorses alcohol and smoking history. FAMILY HISTORY: Did not offer any family history at this time ALLERGIES: Please see below. REVIEW OF SYSTEMS: 10 point review of system was negative except for what is noted in the HPI HOME MEDICATIONS: Please see below. PHYSICAL EXAMINATION: VITAL SIGNS: Please see below General: Lying in bed, no acute distress Head/Neck/Throat: Trachea midline, mucous membranes moist Eyes: Sclera anicteric, no erythema or discharge appreciated bilaterally Thorax: Normal respiratory effort on room air, lungs clear to auscultation bilaterally, no wheezes/rales/rhonchi Cardiovascular: Normal rate, regular rhythm, normal S1, S2; no S3, S4, rubs/gallops/murmurs Abdomen: Bowel sounds present, soft/nontender/nondistended Genitourinary: No CVA tenderness, no Ochoa in place Musculoskeletal: Moving all extremities, no edema Skin: Warm, dry, needle track signs appreciated Neurologic: Awake, alert, oriented x3. Cranial nerves II to XII are intact. Strength in the upper and lower extremities 5/5. Sensation to gross touch intact. No cerebellar deficits appreciated. Palpation of the spinous processes elicited no tenderness. Tenderness reported wrist paralumbar palpation. LABORATORY DATA: See below. IMAGING: Please see imaging section MICROBIOLOGY: Please see below. ASSESSMENT/PLAN: #Chronic pain -At this junction, would recommend standing acetaminophen for her pain and continue with gabapentin. #Microcytic anemia -Check iron profile; she reports regular menstrual. She will likely need iron supplementation which should be given with a laxative. #Polysubstance abuse -Continue with clonidine, and lorazepam for withdrawals. -Continue nicotine patch #PTSD -Management as per psychiatry team #Anxiety/depression -Continue venlafaxine. Management as per psychiatry team. #DVT prophylax -Encourage ambulation History physical examination was done in the presence of a female internal combustion engine subassembler Vital Signs Vital Signs Date Time Temp Pulse Resp B/P (MAP) Pulse Ox O2 Delivery O2 Flow Rate FiO2 03/01/21 11:58 98.2 89 18 134/77 (96) 98 Room Air Laboratory Data Labs 24H Laboratory Tests 2 02/28/21 21:30: Urine Test NEGATIVE, Anion Gap 11, Glomerular Filtration Rate > 60.0, Calcium Level 8.7, Total Bilirubin 0.2#, Direct Bilirubin < 0.1, Aspartate Amino Transf (AST/SGOT) 28, Alanine Aminotransferase (ALT/SGPT) 36, Alkaline Phosphatase 86, Total Creatine Kinase 41, Creatine Kinase MB < 1.0, Creatine Kinase MB Relative Index 2.44, Troponin I < 0.02, Total Protein 6.4, Albumin 2.9L, Albumin/Globulin Ratio 0.8L, Thyroid Stimulating Hormone (TSH) 0.533, Salicylates Level < 1.7L, Urine Opiates Screen NEGATIVE, Urine Methadone Screen NEGATIVE, Acetaminophen Level 5.9L, Urine Barbiturates Screen NEGATIVE, Urine Phencyclidine Screen NEGATIVE, Urine Amphetamines Screen POSITIVEH, Urine Benzodiazepines Screen NEGATIVE, Urine Cocaine Metabolite Screen NEGATIVE, Urine Cannabinoids Screen NEGATIVE, Ethyl Alcohol Level < 0.003 02/28/21 23:06: Nucleated Red Blood Cells % (auto) 0.0 03/01/21 04:19: Coronavirus (COVID-19)(PCR) NEGATIVE, Influenza Type A (RT-PCR) NEGATIVE, Influenza Type B (RT-PCR) NEGATIVE, Respiratory Syncytial Virus (PCR) NEGATIVE CBC/BMP Laboratory Tests 02/28/21 21:30 02/28/21 23:06 Home Medications Scheduled Clonidine HCl (Clonidine HCl) 0.2 Mg Tablet, 0.2 MG PO BID Gabapentin (Gabapentin) 600 Mg Tablet, 600 MG PO TID Trazodone HCl (Trazodone HCl) 150 Mg Tablet, 150 MG PO QHS Scheduled PRN Lorazepam (Ativan) 0.5 Mg Tablet, 0.5 MG PO DAILY PRN for ANXIETY Allergies Coded Allergies: aripiprazole (Verified Allergy, Severe, anaphylaxis, 02/05/20) buspirone (Verified Allergy, Severe, anaphalaxis, 02/05/20) ketorolac (Verified Allergy, Severe, THROAT SWELLING, 11/06/20) Sulfa (Sulfonamide Antibiotics) (Verified Allergy, Intermediate, hives, 02/05/20) NSAIDS (Non-Steroidal Anti-Inflamma (Verified Adverse Reaction, Intermedi ate, BLEEDING/ULCER - CAN NOT TAKE PER DOCTOR'S REQUEST, 02/05/20) methocarbamol (Verified Adverse Reaction, Intermediate, panic attacks, 02/05/20) metoclopramide (Verified Adverse Reaction, Intermediate, panic attacks, 02/05/20) A-FIB/CHADSVASC A-FIB History Current/History of A-Fib/PAF?: No Age/Risk Factor Scoring CHADSVASC: CHADSVASC Response (Comments) Value Age Risk Factor Age < 65 years old 0 Gender Risk Factor Female 1 Hx of CHF No 0 Hx of HTN No 0 Hx of Stroke/TIA/or VTE No 0 Hx of Diabetes No 0 Total 1 ELIZABETH VIGIL M.D. Mar 01, 2021 16:29
[2021-03-01] MEDS: traZODone 50 MG TAB PO PRN (20:15)
[2021-03-01] MEDS: OLANZapine ORAL DISINTEGRATING TAB 5MG PO PRN (20:15)
[2021-03-01] MEDS: cloNIDine 0.2 MG TAB PO SCH (20:17)
[2021-03-01 20:40] LABS: PERCENT SATURATION 4.9 % (13.2-45.0)
[2021-03-01 20:47] LABS: FOLATE 9.8 NG/ML (>5.4)
[2021-03-02 06:17] VITALS: BP 115/58
[2021-03-02] MEDS: cloNIDine 0.2 MG TAB PO SCH ×4 (09:17→22:53)
[2021-03-02] MEDS: VENLAFAXINE **XR** 75MG CAPSULE PO SCH (09:18)
[2021-03-02] MEDS: ACETAMINOPHEN TAB 650MG DOSE (2X325MG) PO PRN ×3 (09:18→22:45)
[2021-03-02] MEDS: GABAPENTIN 300 MG CAP PO SCH ×3 (09:19→21:00)
--- NOTE | 2021-03-02 12:44 | MHIPNPDOC ---
[facility] Progress Note Progress Note DATE OF SERVICE: 03/02/21 HISTORY: Patient is a 30 -year-old , female, with history of polysubstance abuse, depression, multiple admissions, several suicide attempts by overdose, last admission francis to O.D on Paxil and Soma December 2018. Per PSA eval: "Pt was brought to the ED via police along side her s/o, who was brought to the ED as well, but he on a 9.41. They are just recently homeless, and had police contact this evening because they were found in an abandoned building they had no right to be in". Interval: States she has been pretty down on herself due to the homelessness which is stressing her out and not being able to be close to her rock, as her partner. States that he he is like her support animal. Has been taking her medications. Wants to speak to him, unfortunately likely admitted to another inpatient unit, made nursing aware. Patient continues to have fleeting suicidal thoughts, wanting further hospitalization for stabilization. Has been compliant with medications, is getting sleep. Tolerated medication without side effects, denies psychotic symptoms or manic symptoms. No acute acute physical complaints. Reports chronic symptoms of depression, anhedonia, dependent feelings, erratic sleep, low energy even during periods of drug use, states this is been going on for years but partner has helped her through difficult times. Was labile and tearful when discussing this and including her current stressors. VITAL SIGNS: See below. NEW TEST RESULTS: Low iron labs, pending iron supplementation by hospitalist team. B12 within normal limits CURRENT MEDICATIONS: See below. MENTAL STATUS EXAMINATION: General Appearance: disheveled, hospital scubs/clothing, other (has tattoos, healed scars) Build: overweight Demeanor: mistrustful, withdrawn, guarded Eye Contact: avoidant Activity: slowed, anxious Behavior: uncooperative, restless, loss of interests, anhedonia, withdrawn Speech: No longer slurred, slow, low in volume Mood: depressed, anxious Affect: Labile and tearful when discussing current stressors, anxious, dysthymic Thought Process: circumstantial Thought Content (Delusions): other (suicidal ideation) Thought Content (Other): none reported Thought Content (Aggressive): none reported Perception (Hallucinations): none reported Perception (Other): none reported Cognition (Impairment of): none reported Cognition(Intelligence Est.): average Oriented: Awake, Alert, Oriented times three Insight: poor, improving Judgment: Poor, improving Psychosis: Denies DIAGNOSES: 1. Major depressive disorder, recurrent, moderate Heroin use disorder, severe Tobacco use disorder Rule out substance-induced mood disorder, borderline personality disorder, bipolar disorder ASSESSMENT: Patient continues to be taking her medication, encouraged to go to group, continues to report vague suicidal thoughts needing extended hospital stay for safety. No medication changes made today MANAGEMENT PLAN: Continue current medications, encourage group attendance to discuss her acute stressors, encourage abstinence from drugs, per hospitalist review patient iron labs show microcytic anemia and will need iron supplementation, B12 is within normal limits, followed by hospitalist team. TIME SPENT: 15 minutes. Vital Signs Vital Signs Date Time Temp Pulse Resp B/P (MAP) Pulse Ox O2 Delivery O2 Flow Rate FiO2 03/02/21 10:34 Room Air 03/02/21 09:17 127/69 03/02/21 06:17 97.6 54 18 100 Laboratory Data 24H Labs Laboratory Tests 2 03/01/21 20:03: Iron Level 27L, Total Iron Binding Capacity 547H, Transferrin % Saturation 4.9L, Ferritin 4L, Vitamin B12 Level 485, Folate 9.8 Current Medications Current Medications Medications (Trade) Dose Ordered Sig/Marcus Route PRN Reason Start Time Stop Time Status Last Admin Dose Admin Acetaminophen (Tylenol Tab) 650 mg Q6HP PRN PO HEADACHE or MILD DISCOMFORT 03/01/21 13:05 03/02/21 09:18 Al Hydrox/Mg Hydrox/Simethicone (Mylanta) 30 ml Q4HP PRN PO HEARTBURN/INDIGESTION 03/01/21 13:05 Clonidine HCl (Catapres) 0.2 mg BID PO 03/01/21 21:00 03/02/21 09:17 Gabapentin (Neurontin) 600 mg TID PO 03/01/21 16:00 03/02/21 09:19 Home Med (Home Med List Complete!) ASDIRECTED XX 03/01/21 06:05 03/01/21 06:21 DC Hydroxyzine HCl (Atarax) 50 mg Q6HP PRN PO MILD/MODERATE AGITATION 03/01/21 12:40 Lorazepam (Ativan) 0.5 mg DAILY PRN PO ANXIETY 03/01/21 13:05 03/01/21 16:59 Magnesium Hydroxide (Milk Of Magnesia) 30 ml DAILYPRN PRN PO CONSTIPATION 03/01/21 13:05 Nicotine (Nicoderm Cq 21mg) 1 patch DAILYPRN PRN TD NICOTINE WITHDRAWAL 03/01/21 12:40 03/01/21 16:59 Olanzapine (ZyPREXA ZYDIS) 5 mg Q6HP PRN PO SEVERE AGITATION 03/01/21 12:40 03/01/21 20:15 Trazodone HCl (Desyrel) 50 mg QHSP PRN PO INSOMNIA 03/01/21 13:05 03/01/21 20:15 Venlafaxine HCl (Effexor Xr) 75 mg DAILY PO 03/02/21 09:00 03/02/21 09:18 Allergies Coded Allergies: aripiprazole (Verified Allergy, Severe, anaphylaxis, 02/05/20) buspirone (Verified Allergy, Severe, anaphalaxis, 02/05/20) ketorolac (Verified Allergy, Severe, THROAT SWELLING, 11/06/20) Sulfa (Sulfonamide Antibiotics) (Verified Allergy, Intermediate, hives, 02/05/20) NSAIDS (Non-Steroidal Anti-Inflamma (Verified Adverse Reaction, Intermediate, BLEEDING/ULCER - CAN NOT TAKE PER DOCTOR'S REQUEST, 02/05/20) methocarbamol (Verified Adverse Reaction, Intermediate, panic attacks, 02/05/20) metoclopramide (Verified Adverse Reaction, Intermediate, panic attacks, 02/05/20) MICHAEL WATKINS MD Mar 02, 2021 12:44
[2021-03-02 16:17] VITALS: BP 106/56
[2021-03-02] MEDS: LORazepam 0.5 MG TAB PO PRN (18:46)
[2021-03-02] MEDS: traZODone 50 MG TAB PO PRN (22:45)
[2021-03-02] MEDS: hydrOXYzine 50 MG TAB PO PRN (22:45)
[2021-03-03] MEDS: ACETAMINOPHEN TAB 650MG DOSE (2X325MG) PO PRN ×2 (09:02→19:05)
[2021-03-03] MEDS: VENLAFAXINE **XR** 75MG CAPSULE PO SCH (09:02)
[2021-03-03] MEDS: GABAPENTIN 300 MG CAP PO SCH ×3 (09:03→22:05)
[2021-03-03] MEDS: cloNIDine 0.2 MG TAB PO SCH ×2 (09:03→22:11)
[2021-03-03] MEDS: NICOTINE POLACRILEX 2 MG GUM PO PRN ×2 (09:24→19:05)
[2021-03-03] MEDS: LIDOCAINE 5% (LIDODERM) PATCH TD SCH (09:24)
--- NOTE | 2021-03-03 13:19 | MHIPNPDOC ---
[facility] Progress Note Progress Note DATE OF SERVICE: 03/03/21 HISTORY: Patient is a 30 -year-old , female, with history of polysubstance abuse, depression, multiple admissions, several suicide attempts by overdose, last admission francis to O.D on [facility] and [facility] December 2018. Per PSA eval: "Pt was brought to the ED via police along side her s/o, who was brought to the ED as well, but he on a 9.41. They are just recently homeless, and had police contact this evening because they were found in an abandoned building they had no right to be in". Interval: States continued to have anxiety and depression. Denies suicidal ideation, denies hallucinations or manic symptoms. Reports I have pain all over because of my fibromyalgia can we have Lyrica instead of gabapentin. Was explained due to her past history further discretion needs to be made before switching medications to a controlled medication and that pain perception can be modified with increasing in antidepressant doses as well. She became upset about not being able to have her Lyrica despite her drug history, but agrees to have her Effexor dose increased, denies any side effects. Apart from chronic pain denies any acute physical symptoms or new onset physical symptoms. Reports spoke to her partner last night and that he will be discharged on Thursday. VITAL SIGNS: See below. NEW TEST RESULTS: None CURRENT MEDICATIONS: See below. MENTAL STATUS EXAMINATION: General Appearance: disheveled, hospital scubs/clothing, other (has tattoos, healed scars) Build: overweight Demeanor: mistrustful, withdrawn, guarded Eye Contact: avoidant Activity: slowed, anxious Behavior: More cooperative, restless, loss of interests, anhedonia, withdrawn Speech: No longer slowed, no longer slurred, spontaneous Mood: depressed, anxious reportedly Affect: Irritable, dysthymic Thought Process: Linear and logical Thought Content (Delusions): other (suicidal ideation) Thought Content (Other): none reported Thought Content (Aggressive): none reported Perception (Hallucinations): none reported Perception (Other): none reported Cognition (Impairment of): none reported Cognition(Intelligence Est.): average Oriented: Awake, Alert, Oriented times three Insight: poor, improving Judgment: Poor, improving Psychosis: Denies DIAGNOSES: 1. Major depressive disorder, recurrent, moderate Heroin use disorder, severe Tobacco use disorder Rule out substance-induced mood disorder, borderline personality disorder, bipolar disorder ASSESSMENT: Patient continues to be taking her medication, encouraged to go to group, continues to report vague suicidal thoughts needing extended hospital stay for safety. No medication changes made today MANAGEMENT PLAN: Increase Effexor XR to 125 mg p.o. daily for mood and anxiety and pain control, patient agrees after being made aware of common rare side effects, spoke with hospitalist team to ensure iron supplementation. TIME SPENT: 15 minutes Vital Signs Vital Signs Date Time Temp Pulse Resp B/P (MAP) Pulse Ox O2 Delivery O2 Flow Rate FiO2 03/03/21 09:03 117/63 03/02/21 16:17 97.9 59 16 98 Room Air Current Medications Current Medications Medications (Trade) Dose Ordered Sig/Marcus Route PRN Reason Start Time Stop Time Status Last Admin Dose Admin Acetaminophen (Tylenol Tab) 650 mg Q6HP PRN PO HEADACHE or MILD DISCOMFORT 03/01/21 13:05 03/03/21 09:02 Al Hydrox/Mg Hydrox/Simethicone (Mylanta) 30 ml Q4HP PRN PO HEARTBURN/INDIGESTION 03/01/21 13:05 Clonidine HCl (Catapres) 0.2 mg BID PO 03/01/21 21:00 03/03/21 09:03 Gabapentin (Neurontin) 600 mg TID PO 03/01/21 16:00 03/03/21 09:03 Home Med (Home Med List Complete!) ASDIRECTED XX 03/01/21 06:05 03/01/21 06:21 DC Hydroxyzine HCl (Atarax) 50 mg Q6HP PRN PO MILD/MODERATE AGITATION 03/01/21 12:40 03/02/21 22:45 Lidocaine (Lidoderm Patch) 1 patch DAILY TD 03/03/21 09:00 03/03/21 09:24 Lorazepam (Ativan) 0.5 mg DAILY PRN PO ANXIETY 03/01/21 13:05 03/02/21 18:46 Magnesium Hydroxide (Milk Of Magnesia) 30 ml DAILYPRN PRN PO CONSTIPATION 03/01/21 13:05 Nicotine (Nicoderm Cq 21mg) 1 patch DAILYPRN PRN TD NICOTINE WITHDRAWAL 03/01/21 12:40 03/03/21 09:04 DC 03/01/21 16:59 Nicotine (Nicorette) 2 mg Q4HP PRN PO NICOTINE WITHDRAWAL 03/03/21 09:05 03/03/21 09:24 Non-Formulary Medication ( See Comment Field Below ) REMOVE LIDODERM PATCH DAILY@ XX 03/03/21 21:00 Olanzapine (ZyPREXA ZYDIS) 5 mg Q6HP PRN PO SEVERE AGITATION 03/01/21 12:40 03/01/21 20:15 Trazodone HCl (Desyrel) 50 mg QHSP PRN PO INSOMNIA 03/01/21 13:05 03/02/21 22:45 Venlafaxine HCl (Effexor Xr) 75 mg DAILY PO 03/02/21 09:00 03/03/21 09:02 Allergies Coded Allergies: aripiprazole (Verified Allergy, Severe, anaphylaxis, 02/05/20) buspirone (Verified Allergy, Severe, anaphalaxis, 02/05/20) ketorolac (Verified Allergy, Severe, THROAT SWELLING, 11/06/20) Sulfa (Sulfonamide Antibiotics) (Verified Allergy, Intermediate, hives, 02/05/20) NSAIDS (Non-Steroidal Anti-Inflamma (Verified Adverse Reaction, Intermediate, BLEEDING/ULCER - CAN NOT TAKE PER DOCTOR'S REQUEST, 02/05/20) methocarbamol (Verified Adverse Reaction, Intermediate, panic attacks, 02/05/20) metoclopramide (Verified Adverse Reaction, Intermediate, panic attacks, 02/05/20) MICHAEL WATKINS MD Mar 03, 2021 13:19
[2021-03-03] MEDS ORDERED: DOCUSATE SODIUM 100MG CAPSULE PO PRN (13:25)
[2021-03-03] MEDS: FERROUS GLUCONATE 324 MG TAB PO SCH (15:22)
[2021-03-03 16:30] VITALS: BP 109/58
[2021-03-03] MEDS: LORazepam 0.5 MG TAB PO PRN (19:03)
[2021-03-03] MEDS: **NOTE PATIENT COMMENT** MISC XX SCH (21:00)
[2021-03-03] MEDS: traZODone 50 MG TAB PO PRN (22:11)
[2021-03-04 07:09] VITALS: BP 88/42
[2021-03-04] MEDS ORDERED: VENLAFAXINE **XR** 75MG CAPSULE PO SCH (09:00)
[2021-03-04 09:05] VITALS: BP 134/84
[2021-03-04] MEDS: hydrOXYzine 50 MG TAB PO PRN (09:08)
[2021-03-04] MEDS: cloNIDine 0.2 MG TAB PO SCH ×2 (09:08→21:39)
[2021-03-04] MEDS: ACETAMINOPHEN TAB 650MG DOSE (2X325MG) PO PRN ×3 (09:08→21:39)
[2021-03-04] MEDS: GABAPENTIN 300 MG CAP PO SCH ×3 (09:09→21:31)
[2021-03-04] MEDS: VENLAFAXINE **XR** 75MG CAPSULE PO SCH (09:09)
[2021-03-04] MEDS: VENLAFAXINE **XR** 37.5 MG CAPSULE PO SCH (09:09)
[2021-03-04] MEDS: FERROUS GLUCONATE 324 MG TAB PO SCH (09:09)
[2021-03-04] MEDS: NICOTINE POLACRILEX 2 MG GUM PO PRN ×2 (09:10→15:09)
[2021-03-04] MEDS: LIDOCAINE 5% (LIDODERM) PATCH TD SCH (09:10)
--- NOTE | 2021-03-04 13:00 | MHIPNPDOC ---
[facility] Progress Note Progress Note DATE OF SERVICE: 03/04/21 HISTORY: Patient is a 30 -year-old , female, with history of polysubstance abuse, depression, multiple admissions, several suicide attempts by overdose, last admission francis to O.D on [facility] December 2018. Per PSA eval: "Pt was brought to the ED via police along side her s/o, who was brought to the ED as well, but he on a 9.41. They are just recently homeless, and had police contact this evening because they were found in an abandoned building they had no right to be in". Interval: Patient states she continues to take her medications as reviewed on file, states she is annoyed that it will spent extra time with her and that she does not want to be discharged because she has nowhere to go and she wants to wait in a home for her partner when released. States her main concern is housing and that she denies any suicidal or homicidal ideation, keeps asking for benzodiazepines and Lyrica, because it was the only thing to help with her anxiety. VITAL SIGNS: See below. NEW TEST RESULTS: None CURRENT MEDICATIONS: See below. MENTAL STATUS EXAMINATION: General Appearance: Improved hygiene, hospital scubs/clothing, other (has tattoos, healed scars), appears older than stated age with face piercing Build: overweight Demeanor: mistrustful, withdrawn, guarded Eye Contact: avoidant Activity: slowed, anxious Behavior: More cooperative, restless, loss of interests, anhedonia, withdrawn Speech: No longer slowed, no longer slurred, spontaneous Mood: "Okay" Affect: Irritable, euthymic Thought Process: Linear and logical Thought Content (Delusions): other (suicidal ideation) Thought Content (Other): none reported Thought Content (Aggressive): none reported Perception (Hallucinations): none reported Perception (Other): none reported Cognition (Impairment of): none reported Cognition(Intelligence Est.): average Oriented: Awake, Alert, Oriented times three Insight: poor, improving Judgment: Poor, improving Psychosis: Denies DIAGNOSES: 1. Major depressive disorder, recurrent, moderate 2Heroin use disorder, severe 3Tobacco use disorder Rule out substance-induced mood disorder, borderline personality disorder, bipolar disorder ASSESSMENT: Patient continues to be irritable, poorly cooperative interview but denies suicidal or homicidal ideation, denies psychosis or karly states her concern is homelessness and finding housing so that she can be reunited with her partner. Was explained review of substance abuse will not be prescribed controlled substances for anxiety conditions to which she became annoyed and left. This report was requested by: Michael Watkins | Reference #: [id number], history of prescribed opioids. MANAGEMENT PLAN: Continue medications, likely will be discharged tomorrow to [facility] TIME SPENT: 15 minutes Vital Signs Vital Signs Date Time Temp Pulse Resp B/P (MAP) Pulse Ox O2 Delivery O2 Flow Rate FiO2 03/04/21 09:08 134/84 03/04/21 09:05 90 03/04/21 07:09 97.8 20 99 Room Air Current Medications Current Medications Medications (Trade) Dose Ordered Sig/Marcus Route PRN Reason Start Time Stop Time Status Last Admin Dose Admin Acetaminophen (Tylenol Tab) 650 mg Q6HP PRN PO HEADACHE or MILD DISCOMFORT 03/01/21 13:05 03/04/21 09:08 Al Hydrox/Mg Hydrox/Simethicone (Mylanta) 30 ml Q4HP PRN PO HEARTBURN/INDIGESTION 03/01/21 13:05 Clonidine HCl (Catapres) 0.2 mg BID PO 03/01/21 21:00 03/04/21 09:08 Docusate Sodium (Colace) 100 mg DAILYPRN PRN PO CONSTIPATION 03/03/21 13:25 Ferrous Gluconate (Fergon) 324 mg DAILY PO 03/03/21 16:00 03/04/21 09:09 Gabapentin (Neurontin) 600 mg TID PO 03/01/21 16:00 03/04/21 09:09 Home Med (Home Med List Complete!) ASDIRECTED XX 03/01/21 06:05 03/01/21 06:21 DC Hydroxyzine HCl (Atarax) 50 mg Q6HP PRN PO MILD/MODERATE AGITATION 03/01/21 12:40 03/04/21 09:08 Lidocaine (Lidoderm Patch) 1 patch DAILY TD 03/03/21 09:00 03/04/21 09:10 Lorazepam (Ativan) 0.5 mg DAILY PRN PO ANXIETY 03/01/21 13:05 03/03/21 19:03 Magnesium Hydroxide (Milk Of Magnesia) 30 ml DAILYPRN PRN PO CONSTIPATION 03/01/21 13:05 Nicotine (Nicoderm Cq 21mg) 1 patch DAILYPRN PRN TD NICOTINE WITHDRAWAL 03/01/21 12:40 03/03/21 09:04 DC 03/01/21 16:59 Nicotine (Nicorette) 2 mg Q4HP PRN PO NICOTINE WITHDRAWAL 03/03/21 09:05 03/04/21 09:10 Non-Formulary Medication ( See Comment Field Below ) REMOVE LIDODERM PATCH DAILY@21 XX 03/03/21 21:00 03/03/21 21:00 Olanzapine (ZyPREXA ZYDIS) 5 mg Q6HP PRN PO SEVERE AGITATION 03/01/21 12:40 03/01/21 20:15 Trazodone HCl (Desyrel) 50 mg QHSP PRN PO INSOMNIA 03/01/21 13:05 03/03/21 22:11 Venlafaxine HCl (Effexor Xr) 37.5 mg DAILY PO 03/04/21 09:00 03/04/21 09:09 Venlafaxine HCl (Effexor Xr) 75 mg DAILY PO 03/02/21 09:00 03/03/21 13:17 DC 03/03/21 09:02 Venlafaxine HCl (Effexor Xr) 75 mg DAILY PO 03/04/21 09:00 03/04/21 09:09 Venlafaxine HCl (Effexor Xr) 125 mg DAILY PO 03/04/21 09:00 03/03/21 13:42 DC Allergies Coded Allergies: aripiprazole (Verified Allergy, Severe, anaphylaxis, 02/05/20) buspirone (Verified Allergy, Severe, anaphalaxis, 02/05/20) ketorolac (Verified Allergy, Severe, THROAT SWELLING, 11/06/20) Sulfa (Sulfonamide Antibiotics) (Verified Allergy, Intermediate, hives, 02/05/20) NSAIDS (Non-Steroidal Anti-Inflamma (Verified Adverse Reaction, Intermediate, BLEEDING/ULCER - CAN NOT TAKE PER DOCTOR'S REQUEST, 02/05/20) methocarbamol (Verified Adverse Reaction, Intermediate, panic attacks, 02/05/20) metoclopramide (Verified Adverse Reaction, Intermediate, panic attacks, 02/05/20) MICHAEL WATKINS MD Mar 04, 2021 13:00
[2021-03-04] MEDS: OLANZapine ORAL DISINTEGRATING TAB 5MG PO PRN (15:09)
[2021-03-04 17:58] VITALS: BP 111/56
[2021-03-04] MEDS: traZODone 50 MG TAB PO PRN (21:32)
[2021-03-04] MEDS: **NOTE PATIENT COMMENT** MISC XX SCH (21:46)
[2021-03-05 06:00] VITALS: BP 105/68
[2021-03-05] MEDS: LIDOCAINE 5% (LIDODERM) PATCH TD SCH (08:21)
[2021-03-05] MEDS: NICOTINE POLACRILEX 2 MG GUM PO PRN ×2 (08:21→10:35)
[2021-03-05] MEDS: FERROUS GLUCONATE 324 MG TAB PO SCH (08:21)
[2021-03-05 08:22] VITALS: BP 123/73
[2021-03-05] MEDS: VENLAFAXINE **XR** 75MG CAPSULE PO SCH (08:22)
[2021-03-05] MEDS: GABAPENTIN 300 MG CAP PO SCH (08:22)
[2021-03-05] MEDS: VENLAFAXINE **XR** 37.5 MG CAPSULE PO SCH (08:22)
[2021-03-05] MEDS: cloNIDine 0.2 MG TAB PO SCH (08:22)
[2021-03-05] MEDS ORDERED: FERR32TA PO (11:24)
[2021-03-05] MEDS ORDERED: VENL37.598 PO (11:24)
[2021-03-05] MEDS ORDERED: CLON0.2T PO (11:24)
[2021-03-05] MEDS ORDERED: GABA600T4 PO (11:24)
[2021-03-05] MEDS ORDERED: VENL75CA47 PO (11:24)
[2021-03-05] MEDS ORDERED: NICO2GUM PO (11:24)
[2021-03-05] MEDS ORDERED: LIDO5TD TD (11:24)
[2021-03-05] MEDS ORDERED: HYDR50TA70 PO (11:24)
--- NOTE | 2021-03-05 17:26 | MHDSPDOC ---
[facility] Discharge Summary Discharge Summary DATE OF ADMISSION: Mar 01, 2021 at 12:39 DATE OF DISCHARGE: Mar 05, 2021 at 12:42 Discharge diagnoses: 1. Major depressive disorder, recurrent, mild 2 Heroin use disorder, severe 3 Tobacco use disorder 4. Borderline personality disorder 5. Malingering Reason for admission: Patient is a 30 -year-old , female, with history of polysubstance abuse, depression, multiple admissions, hx of overdoses. Per PSA eval: "Pt was brought to the ED via police along side her s/o, who was brought to the ED as well, but he on a 9.41. They are just recently homeless, and had police contact this evening because they were found in an abandoned building they had no right to be in". Vital signs: See below Consultants involved: See medical H&P by hospitalist Treatment and progress on the unit: Patient was admitted to the [facility] 9.39 legal status and was afforded the following treatment modalities: 1. Individual therapy 2. Group therapy 3. Medication management 4. Milieu therapy 5. Safe environment Hospital course: Patient was admitted to the [facility] on a 9.39 legal status. Was medically cleared prior to coming up to the [facility]. States she has worsening suic idal ideation in context of acute stressors including recent homelessness, that her substance use has increased recently including IV heroin, has concerns for safety overdosing, and she is recently homeless. Reports she uses i.v heroin, despite negative opioid screen or methadone screen. During interview was somnolent, poorly cooperative. Unable to obtain full history, chart review was used. Was restarted on home medication Effexor 75 which was titrated up to 112 mg. Was also continued on her gabapentin, clonidine. During stay patient was seeking multiple painkillers for her reported fibromyalgia. These included benzodiazepines and other controlled medications, including Lyrica. Explained due to her substance use history at risk for his sedation especially benzodiazepines in context of opioid use which can cause respiratory suppression and would not be prescribing these medications. Patient reported a lot of splitting interactions with staff members stating how they do not care about her than others do. During stay continues to not endorse any suicidal ideation, intent or plan and states she just needed housing was upset with her situation as her partner who also uses drugs was hospitalized and that she wants to see him as he is her "support animal". Was educated on the risks of using drugs, risks of overdose, how codependent relationship may add to increased risk for use, and that she should look to other treatment modalities including therapy to help her manage her current stressors, also going to and continue with outpatient's chemical substance treatment for dependency would be helpful for her to keep clean. Was offered naltrexone for cravings, but refused. Also iron panel showed KRISTINE, was given iron supplementation during stay and on discharge. Patient found medications beneficial and tolerated them well. Denies mood, anxiety and intrusive thoughts which improved with treatment. Patient attended groups daily during stay. Patient arrived initially reporting vague suicidal ideation, withdrawal symptoms. On day of discharge patient denied depression, anxiety, insomnia, suicidal or homicidal ideations intent or plan, hallucinations, delusions. Patient was discharged home with follow-up. Patient felt safe for discharge. Was offered continued stay involuntary admission but refused. Discharge assessment: On today's interview patient is alert and oriented, dress ed appropriately. Hygiene and grooming is well-kept. Smiles on approach and is pleasant and engaged on interview. He is agreeable to discharge, prior to discharge asked that she can have at least 1 dose of lorazepam before she goes because her anxiety increases when she is discharged. Made her aware that I cannot safely prescribe controlled substances due to her history of substance use, and risk for worsening respiratory suppression if she uses opioids. Denies depression and anxiety. Denies suicidal homicidal ideation, intent or planning. Denies and is not observed with karly or psychotic symptoms of delusions, hallucinations, bizarre thinking, obsessions, paranoia, ruminations, illogical thoughts, flight of ideas or having poor insight or judgment. Patient has normal mentation, declines further hospitalization of voluntary status and meets criteria for discharge today, patient encouraged to return the hospital if symptoms worsen or change and encouraged to call unit if they feel they need provider's questions to be answered or help with medications or care. Mental status: General Appearance: Improved hygiene, casual clothing, other (has tattoos, healed scars), appears older than stated age with face piercing Build: overweight Demeanor: mistrustful, annoyed by her life situation Eye Contact: Improved Activity: Normal Behavior: More cooperative, less restless, goal oriented but frustrated by having to organize her things Speech: Normal Mood: "Fine" Affect: Irritable due to the fact that she has to organize her things before she leaves, euthymic, mood congruent, appropriate Thought Process: Linear and logical Thought Content (Delusions): other (suicidal ideation) Thought Content (Other): none reported Thought Content (Aggressive): none reported Perception (Hallucinations): none reported Perception (Other): none reported Cognition (Impairment of): none reported Cognition(Intelligence Est.): average Oriented: Awake, Alert, Oriented times three Insight: Fair Judgment: Fair Psychosis: Denies Medications on discharge: see medication reconciliation: CSSRS on discharge: Wish to be : No nonspecific active suicidal thoughts: No lifetime attempts: Unclear if intentional, multiple overdoses reported interrupted attempts: 0 aborted attempts: 0 preparatory acts or behavior: None Taking into consideration safety state, status, modifiable, non-modifiable risk factors patient is at chronically elevated risk on discharge for suicide according to [place] suicide evaluation. Patient has a history of polysubstance abuse, poor follow-up, denies suicidal ideation, intent during stay, pending finding housing through [facility], has close support from partner who also engages in drug use and may facilitate drug use in a codependent fashion, educated about these risks, seems substance seeking and precontemplative regar ding substance use as she refuses treatment such as naltrexone and asked for controlled substances despite explained risks. Safety plan created to help control for risk factors. Follow-up appointments: Follow Up Care Education Label * Mental Health Appt 1 * [facility] * Established With This Provider Yes * Therapist JOS * Date Mar 08, 2021 * Time 16:00 * Address of Clinic or Practice [address] [place] [address] * Follow Up Care Education Label * Mental Health Appt 2 * [facility] * Established With This Provider Yes * Therapist BIANCA * Date Apr 03, 2021 * Time 10:00 * Address of Clinic or Practice [address] [place] [address] * total time: 20 minutes ETOH/Disorder Med Rx ETOH/DRUG DISORDER RX: Offrd @ d/c & pt refused Vital Signs/I&Os Vital Signs Date Time Temp Pulse Resp B/P (MAP) Pulse Ox O2 Delivery O2 Flow Rate FiO2 9/21/21 08:22 123/73 03/05/21 06:00 98.3 74 20 100 03/04/21 07:09 Room Air Medications Scheduled Clonidine HCl (Clonidine HCl) 0.2 Mg Tablet, 0.2 MG PO BID for anxiety, #14 Ferrous Gluconate (Ferrous Gluconate) 324 Mg Tablet, 324 MG PO DAILY for anemia, #7 Gabapentin (Gabapentin) 600 Mg Tablet, 600 MG PO TID for anxiety, #7 Lidocaine (Lidocaine) 5% Adh..patch, 1 PATCH TD DAILY for pain, #7 Trazodone HCl (Trazodone HCl) 150 Mg Tablet, 150 MG PO QHS, (Reported) Venlafaxine HCl (Venlafaxine HCl ER) 75 Mg Cap.er.24h, 75 MG PO DAILY for depression, #7 Venlafaxine HCl (Venlafaxine HCl ER) 37.5 Mg Cap.er.24h, 37.5 MG PO DAILY for depression, #7 Scheduled PRN Hydroxyzine HCl (Hydroxyzine HCl) 50 Mg Tablet, 50 MG PO Q6HP PRN for MILD/MODERATE AGITATION, #14 Nicotine Polacrilex (Nicotine Gum) 2 Mg Gum, 2 MG PO Q4HP PRN for NICOTINE WITHDRAWAL, #7 Allergies Coded Allergies: aripiprazole (Verified Allergy, Severe, anaphylaxis, 02/05/20) buspirone (Verified Allergy, Severe, anaphalaxis, 02/05/20) ketorolac (Verified Allergy, Severe, THROAT SWELLING, 11/06/20) Sulfa (Sulfonamide Antibiotics) (Verified Allergy, Intermediate, hives, 02/05/20) NSAIDS (Non-Steroidal Anti-Inflamma (Verified Adverse Reaction, Intermediate, BLEEDING/ULCER - CAN NOT TAKE PER DOCTOR'S REQUEST, 02/05/20) methocarbamol (Verified Adverse Reaction, Intermediate, panic attacks, 02/05/20) metoclopramide (Verified Adverse Reaction, Intermediate, panic attacks, 02/05/20) MICHAEL WATKINS MD Mar 05, 2021 17:26
== END 2021-03-05 12:42 | disposition home or self-care (01) | DRG 751 ==
LOC: M ED 20:05 → M ED INP 03-01 12:39 → M PSY 03-01 14:00
PROVIDERS: ADMIT Psychiatry & Neurology Psychiatry; ATTEND Student in an Organized Health Care Education/Training Program
DX: F33.0 Major depressive disorder, recurrent, mild (principal); F11.20 Opioid dependence, uncomplicated; F17.200 Nicotine dependence, unspecified, uncomplicated; F60.3 Borderline personality disorder; G89.29 Other chronic pain; D50.9 Iron deficiency anemia, unspecified; Z79.899 Other long term (current) drug therapy; Z88.2 Allergy status to sulfonamides; Z88.6 Allergy status to analgesic agent; Z88.8 Allergy status to other drugs, medicaments and biological substances; Z91.410 Personal history of adult physical and sexual abuse; Z91.411 Personal history of adult psychological abuse; Z86.718 Personal history of other venous thrombosis and embolism; Z87.81 Personal history of (healed) traumatic fracture; Z20.822 Contact with and (suspected) exposure to COVID-19; Z76.5 Malingerer [conscious simulation]

== ENCOUNTER 2021-04-12 01:17 | Emergency (ER) | payer MEDICAID, OTHER ==
[~2021-04-12] VITALS: Ht 167.6 cm; Wt 95.3 kg
[~2021-04-12 01:17] MED LIST changes: +DOXY-443 PO; -DOXY1CAP62 PO; +HYDR50TA70 PO; +LIDO5TD TD; +NICO2GUM PO; +TRAZ150T90 PO; +VENL37.598 PO
[2021-04-12 04:07] LABS: HEMATOCRIT 40.3 % (36.0-47.0); HEMOGLOBIN 12.4 g/dl (12.0-15.5); MEAN CORPUSCULAR HEMOGLOBIN 25.5 pg (27.0-33.0); MEAN CORPUSCULAR HGB CONC 30.8 g/dl (32.0-36.5); MEAN CORPUSCULAR VOLUME 82.8 fl (80.0-96.0); PLATELET COUNT, AUTOMATED 327 10^3/uL (150-450); RED BLOOD COUNT 4.87 10^6/uL (4.00-5.40); WHITE BLOOD COUNT 12.6 10^3/uL (4.0-10.0)
[2021-04-12 04:45] LABS: AMPHETAMINES LEVEL URINE POSITIVE (NEGATIVE); BARBITURATES URINE NEGATIVE (NEGATIVE); BENZODIAZEPINES URINE NEGATIVE (NEGATIVE); CANNABINOIDS URINE NEGATIVE (NEGATIVE); COCAINE METABOLITE URINE NEGATIVE (NEGATIVE); METHADONE URINE NEGATIVE (NEGATIVE); OPIATES URINE NEGATIVE (NEGATIVE); PHENCYCLIDINE URINE NEGATIVE (NEGATIVE)
[2021-04-12 04:48] LABS: ACETAMINOPHEN LEVEL < 2.0 UG/ML (10.0-30.0); ALBUMIN 3.4 GM/DL (3.2-5.2); ALT/SGPT 35 U/L (12-78); BILIRUBIN,DIRECT 0.2 MG/DL (0.0-0.2); BILIRUBIN,TOTAL 0.4 MG/DL (0.2-1.0); BLOOD UREA NITROGEN 6 MG/DL (7-18); CALCIUM LEVEL 9.4 MG/DL (8.5-10.1); CARBON DIOXIDE LEVEL 28 MEQ/L (21-32); CHLORIDE LEVEL 106 MEQ/L (98-107); CREATININE FOR GFR 0.61 MG/DL (0.55-1.30); ETHYL ALCOHOL (ETHANOL) < 0.003 % (0.000-0.010); GLOMERULAR FILTRATION RATE > 60.0 (>60); GLUCOSE, FASTING 85 MG/DL (70-100); POTASSIUM SERUM 3.8 MEQ/L (3.5-5.1); SALICYLATE LEVEL 1.8 MG/DL (5.0-30.0); SODIUM LEVEL 144 MEQ/L (136-145); THYROID STIMULATING HORMONE 0.126 uIU/ML (0.358-3.740); TOTAL PROTEIN 7.1 GM/DL (6.4-8.2)
[2021-04-12] MEDS ORDERED: ACETAMINOPHEN TAB 650MG DOSE (2X325MG) PO ONE (06:00)
[2021-04-12] MEDS ORDERED: LORazepam 0.5 MG TAB PO ONE (06:00)
[2021-04-12 07:10] LABS: HCG, SERUM QUALITATIVE NEGATIVE (NEGATIVE)
[2021-04-12] MEDS ORDERED: VENLAFAXINE **XR** 75MG CAPSULE PO SCH (09:00)
[2021-04-12] MEDS ORDERED: cloNIDine 0.2 MG TAB PO SCH (09:00)
[2021-04-12] MEDS ORDERED: VENLAFAXINE 37.5 MG TAB PO SCH (09:00)
[2021-04-12] MEDS ORDERED: FERROUS GLUCONATE 324 MG TAB PO SCH (09:00)
[2021-04-12] MEDS ORDERED: CLON0.2T PO (09:21)
[2021-04-12] MEDS ORDERED: FERR32TA PO (09:21)
[2021-04-12] MEDS ORDERED: VENL150C43 PO (09:21)
[2021-04-12] MEDS ORDERED: ATIV1TAB10 PO (09:21)
[2021-04-12] MEDS ORDERED: GABA600T4 PO (09:21)
[2021-04-12] MEDS ORDERED: HOME MED LIST COMPLETE! XX SCH (09:25)
[2021-04-12 10:33] VITALS: BP 134/79
[2021-04-12] MEDS: GABAPENTIN 300 MG CAP PO SCH ×2 (10:34→17:43)
[2021-04-12 11:08] LABS: RSV AMPLIFICATION NEGATIVE (NEGATIVE)
[2021-04-12 18:50] VITALS: BP 111/73
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
== END 2021-04-12 18:45 | disposition home or self-care (01) ==
LOC: M ED 01:17
DX: F33.9 Major depressive disorder, recurrent, unspecified (principal); F17.210 Nicotine dependence, cigarettes, uncomplicated; Z79.899 Other long term (current) drug therapy; Z88.8 Allergy status to other drugs, medicaments and biological substances; Z88.2 Allergy status to sulfonamides; Z88.1 Allergy status to other antibiotic agents; Z91.51 Personal history of suicidal behavior; Z90.49 Acquired absence of other specified parts of digestive tract; Z98.890 Other specified postprocedural states

== ENCOUNTER 2021-05-26 23:03 | Emergency (ER) | payer MEDICAID, OTHER ==
[~2021-05-26] VITALS: Ht 170.2 cm; Wt 93.6 kg
[~2021-05-26 23:03] MED LIST changes: -CEFD1CAP8 PO; +CEFD300C41 PO; -DICY20TA11 PO; +DICY20TA20 PO; -OMEP-221; +OMEP40CA5; +VENL150C43 PO
== END 2021-05-26 23:15 | disposition left against medical advice (07) ==
LOC: M ED 23:03
DX: Z53.21 Procedure and treatment not carried out due to patient leaving prior to being seen by health care provider (principal)

== ENCOUNTER → 2022-01-23 | Outpatient (CLI) | payer MEDICAID, OTHER ==
[~2022-01-23] MED LIST changes: -GNP10CAP PO; +GNPCAP31 PO
[2022-01-23 10:13] LABS: MEAN CORPUSCULAR HEMOGLOBIN 30.3 pg (27.0-33.0); MEAN CORPUSCULAR HGB CONC 33.3 g/dl (32.0-36.5); MEAN CORPUSCULAR VOLUME 90.9 fl (80.0-96.0); PLATELET COUNT, AUTOMATED 226 10^3/uL (150-450); RED BLOOD COUNT 4.29 10^6/uL (4.00-5.40); WHITE BLOOD COUNT 5.3 10^3/uL (4.0-10.0)
[2022-01-23 10:43] LABS: HCG, SERUM QUALITATIVE NEGATIVE (NEGATIVE)
[2022-01-23 11:08] LABS: ALT/SGPT 62 U/L (12-78); BILIRUBIN,TOTAL 0.3 MG/DL (0.2-1.0); BLOOD UREA NITROGEN 9 MG/DL (7-18); CALCIUM LEVEL 8.7 MG/DL (8.5-10.1); CARBON DIOXIDE LEVEL 30 MEQ/L (21-32); CHLORIDE LEVEL 104 MEQ/L (98-107); GLOMERULAR FILTRATION RATE > 60.0 (>60); GLUCOSE, FASTING 83 MG/DL (70-100); POTASSIUM SERUM 4.1 MEQ/L (3.5-5.1); SODIUM LEVEL 139 MEQ/L (136-145); TOTAL PROTEIN 6.6 GM/DL (6.4-8.2)
[2022-01-23 11:36] LABS: GC DNA AMPLIFICATION NEGATIVE (NEGATIVE)
[2022-01-23 12:50] LABS: HEPATITIS B SURFACE ANTIGEN NEGATIVE (NEGATIVE)
[2022-01-23 13:18] LABS: HIV 1&2 SCREEN CENTAUR NEGATIVE (NEGATIVE)
[2022-01-23 15:16] LABS: HEPATITIS C VIRUS ABY INDEX > 11.0 INDEX (<0.8)
== END ==
LOC: M LAB 09:22
PROVIDERS: ATTEND Family Medicine
DX: F11.90 Opioid use, unspecified, uncomplicated (principal)

== ENCOUNTER → 2022-06-12 | Outpatient (CLI) | payer MEDICAID, OTHER ==
[~2022-06-12] MED LIST changes: -PAXI10TA12 PO; +PAXI10TA13 PO; -PAXI20TA29 PO; +PAXI20TA30 PO
== END ==
LOC: M WUC 10:28
PROVIDERS: ATTEND Physician Assistant
DX: M25.562 Pain in left knee (principal); M54.2 Cervicalgia; M25.531 Pain in right wrist

== ENCOUNTER → 2022-06-19 | Outpatient (CLI) | payer MEDICAID, OTHER ==
[~2022-06-19] MED LIST changes: +DIPH-435 PO; -DIPH25CA32 PO
[2022-06-19 14:10] LABS: BASO % 0.3 % (0.0-1.0); EOS # 0.3 10^3/uL (0.0-0.5); EOS % 4.4 % (0.0-3.0); HEMOGLOBIN 13.7 g/dl (12.0-15.5); LYMPH # 2.3 10^3/uL (1.5-5.0); LYMPH % 39.2 % (24.0-44.0); MEAN CORPUSCULAR HEMOGLOBIN 29.6 pg (27.0-33.0); MEAN CORPUSCULAR HGB CONC 32.6 g/dl (32.0-36.5); MEAN CORPUSCULAR VOLUME 90.7 fl (80.0-96.0); MONO # 0.3 10^3/uL (0.0-0.8); MONO % 4.5 % (2.0-8.0); NEUTROPHILS % 51.1 % (36.0-66.0); PLATELET COUNT, AUTOMATED 244 10^3/uL (150-450); RED BLOOD COUNT 4.63 10^6/uL (4.00-5.40)
[2022-06-19 14:42] LABS: ALBUMIN 3.1 G/DL (3.2-5.2); ALKALINE PHOSPHATASE 158 U/L (46-116); ALT/SGPT 40 U/L (7.0-40); AST/SGOT 37 U/L (<34); BILIRUBIN,TOTAL 0.2 MG/DL (0.3-1.2); BLOOD UREA NITROGEN 6 MG/DL (9-23); CALCIUM LEVEL 9.1 MG/DL (8.5-10.1); CARBON DIOXIDE LEVEL 32 MMOL/L (20-31); CHLORIDE LEVEL 104 MMOL/L (98-107); CREATININE FOR GFR 0.63 MG/DL (0.55-1.30); GLOMERULAR FILTRATION RATE > 60.0 (>60); GLUCOSE, FASTING 87 MG/DL (60-100); POTASSIUM SERUM 4.3 MMOL/L (3.5-5.1); SODIUM LEVEL 143 MMOL/L (136-145); TOTAL PROTEIN 6.8 G/DL (5.7-8.2)
[2022-06-19 14:48] LABS: HEPATITIS B SURFACE ANTIBODY NEGATIVE (POSITIVE)
[2022-06-19 15:00] LABS: HEPATITIS B SURFACE ANTIGEN NEGATIVE (NEGATIVE)
[2022-06-19 15:13] LABS: HIV 1&2 SCREEN CENTAUR NEGATIVE (NEGATIVE)
== END ==
LOC: M PLALAB 09:10
PROVIDERS: ATTEND Internal Medicine Infectious Disease
DX: B18.2 Chronic viral hepatitis C (principal)

== ENCOUNTER → 2022-08-01 | Outpatient (CLI) | payer MEDICAID, OTHER ==
[~2022-08-01] MED LIST changes: +LIDO15SO4 PO; -LIDO2SOL17 PO
== END ==
LOC: M RAD 16:58
PROVIDERS: ATTEND Internal Medicine
DX: M54.59 Other low back pain (principal)

== ENCOUNTER → 2022-10-01 | Outpatient (REF) | payer OTHER ==
[~2022-10-01] MED LIST changes: +LIDO15SO PO; -LIDO15SO4 PO
[2022-10-01 19:40] LABS: GC DNA AMPLIFICATION NEGATIVE (NEGATIVE)
== END ==
LOC: M SFHCWAGY 17:26
PROVIDERS: ATTEND Specialist
DX: Z01.419 Encounter for gynecological examination (general) (routine) without abnormal findings (principal); Z20.2 Contact with and (suspected) exposure to infections with a predominantly sexual mode of transmission

== ENCOUNTER → 2023-07-24 | Outpatient (CLI) | payer OTHER ==
[~2023-07-24] MED LIST changes: +CEFD1CAP9 PO; -CEFD300C41 PO; +LORA1TAB23 PO; -LORA1TAB4 PO
[2023-07-24 13:14] LABS: HEMATOCRIT 44.3 % (36.0-47.0); HEMOGLOBIN 14.6 g/dl (12.0-15.5); MEAN CORPUSCULAR HEMOGLOBIN 29.2 pg (27.0-33.0); MEAN CORPUSCULAR VOLUME 88.6 fl (80.0-96.0); PLATELET COUNT, AUTOMATED 265 10^3/uL (150-450); WHITE BLOOD COUNT 9.6 10^3/uL (4.0-10.0)
[2023-07-24 13:43] LABS: ALBUMIN 3.1 G/DL (3.2-5.2); ALKALINE PHOSPHATASE 120 U/L (46-116); ALT/SGPT 18 U/L (7.0-40); AST/SGOT 15 U/L (<34); BILIRUBIN,TOTAL 0.4 MG/DL (0.3-1.2); BLOOD UREA NITROGEN 6 MG/DL (9-23); CARBON DIOXIDE LEVEL 32 MMOL/L (20-31); CHLORIDE LEVEL 102 MMOL/L (98-107); CREATININE FOR GFR 0.86 MG/DL (0.55-1.30); GLOMERULAR FILTRATION RATE > 60.0 (>60); GLUCOSE, FASTING 130 MG/DL (60-100); POTASSIUM SERUM 3.5 MMOL/L (3.5-5.1); SODIUM LEVEL 140 MMOL/L (136-145)
[2023-07-24 13:48] LABS: HCG, SERUM QUALITATIVE NEGATIVE (NEGATIVE)
[2023-07-24 14:10] LABS: HIV 1&2 SCREEN NEGATIVE (NEGATIVE)
[2023-07-24 14:20] LABS: HEPATITIS C VIRUS ABY INDEX > 11.00 INDEX (<0.8)
[2023-07-24 19:36] LABS: CHLAMYDIA DNA AMPLIFICATION NEGATIVE (NEGATIVE); GC DNA AMPLIFICATION NEGATIVE (NEGATIVE)
== END ==
LOC: M LAB 12:04
PROVIDERS: ATTEND Family Medicine
DX: F11.20 Opioid dependence, uncomplicated (principal)

== ENCOUNTER → 2023-09-24 | Outpatient (CLI) | payer OTHER ==
[~2023-09-24] MED LIST changes: -LIDO15SO PO; +LIDO15SO8 PO
== END ==
LOC: M RAD 15:19
PROVIDERS: ATTEND Nurse Practitioner Family
DX: E66.2 Morbid (severe) obesity with alveolar hypoventilation (principal)

== ENCOUNTER → 2023-10-29 | Outpatient (CLI) | payer OTHER ==
[~2023-10-29] MED LIST changes: +DOXY-323 PO; -DOXY-443 PO
[2023-10-29 13:49] LABS: ABG BASE EXCESS 3.7 (-2.0-2.0); ABG HCO3 28.5 MMOL/L (22.0-26.0); ABG O2 SATURATION 94.4 % (95.0-99.0); ABG PARTIAL PRESSURE CO2 43.9 mmHg (35.0-45.0); ABG PARTIAL PRESSURE O2 68.3 mmHg (75.0-100.0); ABG STANDARD HCO3 27.7 MMOL/L. (22.0-26.0); ABG TOTAL CO2 29.8 MMOL/L (22.0-29.0)
== END ==
LOC: M CARPUL 13:20
PROVIDERS: ATTEND Nurse Practitioner Family
DX: E66.2 Morbid (severe) obesity with alveolar hypoventilation (principal)

== ENCOUNTER 2024-02-22 19:12 | Emergency (ER) | payer OTHER ==
[~2024-02-22] VITALS: Ht 170.2 cm; Wt 136.4 kg
[~2024-02-22 19:12] MED LIST changes: +GABA-1490 PO; -GABA600T4 PO; +ONDA-282; +ONDA-282 PO; -ONDA4TAB6; -ONDA4TAB6 PO
[2024-02-22] MEDS ORDERED: ACET-683 PO (19:47)
[2024-02-22 20:21] LABS: BASO # 0.1 10^3/uL (0.0-0.2); BASO % 0.6 % (0.0-1.0); EOS # 0.3 10^3/uL (0.0-0.5); EOS % 3.5 % (0.0-3.0); HEMOGLOBIN 7.6 g/dl (12.0-15.5); LYMPH # 3.7 10^3/uL (1.5-5.0); LYMPH % 46.4 % (24.0-44.0); MEAN CORPUSCULAR HEMOGLOBIN 18.5 pg (27.0-33.0); MEAN CORPUSCULAR HGB CONC 26.2 g/dl (32.0-36.5); MEAN CORPUSCULAR VOLUME 70.6 fl (80.0-96.0); MONO # 0.4 10^3/uL (0.0-0.8); MONO % 4.5 % (2.0-8.0); NEUTROPHILS # 3.6 10^3/uL (1.5-8.5); NEUTROPHILS % 44.8 % (36.0-66.0); PLATELET COUNT, AUTOMATED 430 10^3/uL (150-450); RED BLOOD COUNT 4.11 10^6/uL (4.00-5.40)
[2024-02-22 20:30] LABS: LIPASE 30 U/L (12-53)
[2024-02-22 20:32] LABS: ALBUMIN 3.3 G/DL (3.2-5.2); ALKALINE PHOSPHATASE 122 U/L (46-116); ALT/SGPT 15 U/L (7.0-40); AST/SGOT 23 U/L (<34); BILIRUBIN,DIRECT 0.1 MG/DL (<0.4); BILIRUBIN,TOTAL 0.4 MG/DL (0.3-1.2); BLOOD UREA NITROGEN 8 MG/DL (9-23); CALCIUM LEVEL 9.1 MG/DL (8.5-10.1); CARBON DIOXIDE LEVEL 25 MMOL/L (20-31); CHLORIDE LEVEL 106 MMOL/L (98-107); CREATININE FOR GFR 0.93 MG/DL (0.55-1.30); GLOMERULAR FILTRATION RATE > 60.0 (>60); GLUCOSE, FASTING 107 MG/DL (60-100); POTASSIUM SERUM 3.7 MMOL/L (3.5-5.1); SODIUM LEVEL 139 MMOL/L (136-145); TOTAL PROTEIN 7.1 G/DL (5.7-8.2)
[2024-02-22 21:17] LABS: HCG, SERUM QUALITATIVE NEGATIVE (NEGATIVE)
[2024-02-23] MEDS ORDERED: GABA-1635 PO (04:33)
[2024-02-23] MEDS ORDERED: ONDA-83 PO (04:35)
[2024-02-23] MEDS ORDERED: LUMA42CA PO (04:35)
[2024-02-23] MEDS ORDERED: RITA30CA PO (04:35)
[2024-02-23] MEDS ORDERED: METH20TA29 PO (04:35)
[2024-02-23] MEDS ORDERED: HOME MED LIST COMPLETE! XX SCH (04:40)
[2024-02-23] MEDS: GASTROGRAFIN SOLUTION 30ML PO SCH (04:54)
[2024-02-23] MEDS: ACETAMINOPHEN *IV* 1,000 MG in IV 1 EA IV ONE (04:54)
[2024-02-23 04:59] LABS: BASO % 0.5 % (0.0-1.0); EOS # 0.2 10^3/uL (0.0-0.5); HEMATOCRIT 27.3 % (36.0-47.0); HEMOGLOBIN 7.4 g/dl (12.0-15.5); LYMPH # 3.3 10^3/uL (1.5-5.0); LYMPH % 43.6 % (24.0-44.0); MEAN CORPUSCULAR HEMOGLOBIN 18.4 pg (27.0-33.0); MEAN CORPUSCULAR HGB CONC 27.1 g/dl (32.0-36.5); MEAN CORPUSCULAR VOLUME 67.9 fl (80.0-96.0); MONO # 0.3 10^3/uL (0.0-0.8); MONO % 4.2 % (2.0-8.0); NEUTROPHILS # 3.7 10^3/uL (1.5-8.5); NEUTROPHILS % 48.4 % (36.0-66.0); PLATELET COUNT, AUTOMATED 362 10^3/uL (150-450); RED BLOOD COUNT 4.02 10^6/uL (4.00-5.40); WHITE BLOOD COUNT 7.6 10^3/uL (4.0-10.0)
[2024-02-23 05:13] LABS: INR 1.19; PROTHROMBIN TIME 14.7 SECONDS (12.5-14.5)
[2024-02-23 05:29] LABS: HCG, SERUM QUANTITATIVE < 2.6 MIU/ML (<4.2); LIPASE 60 U/L (12-53)
[2024-02-23 05:31] LABS: ALBUMIN 3.3 G/DL (3.2-5.2); ALKALINE PHOSPHATASE 120 U/L (46-116); ALT/SGPT 16 U/L (7.0-40); AST/SGOT 27 U/L (<34); BILIRUBIN,TOTAL 0.4 MG/DL (0.3-1.2); BLOOD UREA NITROGEN 9 MG/DL (9-23); CALCIUM LEVEL 9.1 MG/DL (8.5-10.1); CARBON DIOXIDE LEVEL 30 MMOL/L (20-31); CHLORIDE LEVEL 105 MMOL/L (98-107); CREATININE FOR GFR 0.82 MG/DL (0.55-1.30); GLOMERULAR FILTRATION RATE > 60.0 (>60); GLUCOSE, FASTING 87 MG/DL (60-100); POTASSIUM SERUM 3.9 MMOL/L (3.5-5.1); SODIUM LEVEL 141 MMOL/L (136-145); TOTAL PROTEIN 7.1 G/DL (5.7-8.2)
[2024-02-23 05:49] LABS: Trichomonas vaginalis (AMP) NOT DETECTED (NEGATIVE)
[2024-02-23 06:13] LABS: GC DNA AMPLIFICATION NEGATIVE (NEGATIVE)
[2024-02-23] MEDS ORDERED: ISOVUE-370 76% 100ML VIAL As Ordered ONE (06:39)
[2024-02-23] MEDS: GABAPENTIN 400MG CAP PO ONE (07:37)
[2024-02-23 07:43] VITALS: BP 112/49; TEMP 97; O2SAT 97
== END 2024-02-23 08:41 | disposition home or self-care (01) ==
LOC: M ED 19:12
DX: R10.9 Unspecified abdominal pain (principal); Z88.2 Allergy status to sulfonamides; Z88.8 Allergy status to other drugs, medicaments and biological substances; Z79.1 Long term (current) use of non-steroidal anti-inflammatories (NSAID); Z79.899 Other long term (current) drug therapy
CPT/HCPCS: 74177; 76830; 76856; 80048; 80053; 80076; 81001; 83690; 84702; 84703; 85025; 85610; 85730; 86850; 86900; 86901; 87086; 87661; 87810; 87850; 93976; 96374; 99285; J0131; Q9963; Q9967

== ENCOUNTER → 2024-02-29 | Outpatient (CLI) | payer OTHER ==
[~2024-02-29] MED LIST changes: +ACET-683 PO; +GABA-1635 PO; +LUMA42CA PO; +ONDA-83 PO; +RITA30CA PO
[2024-02-29 15:31] LABS: HEMOGLOBIN A1c 5.7 % (4.0-6.0)
[2024-02-29 15:32] LABS: ALBUMIN 3.2 G/DL (3.2-5.2); ALKALINE PHOSPHATASE 113 U/L (46-116); ALT/SGPT 17 U/L (7.0-40); AST/SGOT 12 U/L (<34); BILIRUBIN,TOTAL 0.2 MG/DL (0.3-1.2); BLOOD UREA NITROGEN 7 MG/DL (9-23); CARBON DIOXIDE LEVEL 31 MMOL/L (20-31); CHLORIDE LEVEL 110 MMOL/L (98-107); CREATININE FOR GFR 0.84 MG/DL (0.55-1.30); GLOMERULAR FILTRATION RATE > 60.0 (>60); GLUCOSE, FASTING 104 MG/DL (60-100); POTASSIUM SERUM 4.4 MMOL/L (3.5-5.1); SODIUM LEVEL 145 MMOL/L (136-145); TOTAL PROTEIN 6.9 G/DL (5.7-8.2)
== END ==
LOC: M PLALAB 09:11
PROVIDERS: ATTEND Nurse Practitioner Family
DX: E28.2 Polycystic ovarian syndrome (principal)

== ENCOUNTER → 2024-04-07 | Outpatient (CLI) | payer OTHER ==
[~2024-04-07] MED LIST changes: -DOXY-323 PO; +DOXY-441 PO
== END ==
LOC: M RADPRO 13:24
PROVIDERS: ATTEND Internal Medicine Pulmonary Disease
DX: R06.02 Shortness of breath (principal); E66.2 Morbid (severe) obesity with alveolar hypoventilation

== ENCOUNTER → 2024-07-04 | Outpatient (CLI) | payer OTHER ==
[2024-07-04 16:03] LABS: TOTAL IRON BINDING CAPACITY 560 UG/DL (250-425)
[2024-07-04 16:04] LABS: ALBUMIN 3.1 G/DL (3.2-5.2); ALKALINE PHOSPHATASE 142 U/L (35-104); ALT/SGPT 17 U/L (7.0-40); AST/SGOT 13 U/L (<34); BILIRUBIN,TOTAL 0.3 MG/DL (0.3-1.2); BLOOD UREA NITROGEN 11 MG/DL (9-23); CALCIUM LEVEL 9.3 MG/DL (8.5-10.1); CARBON DIOXIDE LEVEL 26 MMOL/L (20-31); CHLORIDE LEVEL 107 MMOL/L (98-107); CREATININE FOR GFR 0.87 MG/DL (0.55-1.30); GLOMERULAR FILTRATION RATE > 60.0 (>60); GLUCOSE, FASTING 114 MG/DL (60-100); IRON (FE) 13 UG/DL (50-170); PERCENT SATURATION 2.3 % (13.2-45.0); POTASSIUM SERUM 4.9 MMOL/L (3.5-5.1); SODIUM LEVEL 143 MMOL/L (136-145); TOTAL PROTEIN 7.3 G/DL (5.7-8.2)
[2024-07-04 16:05] LABS: BASO # 0.1 10^3/uL (0.0-0.2); BASO % 0.4 % (0.0-1.0); EOS # 0.3 10^3/uL (0.0-0.5); EOS % 2.6 % (0.0-3.0); HEMOGLOBIN 9.3 g/dl (12.0-15.5); LYMPH # 3.7 10^3/uL (1.5-5.0); LYMPH % 31.5 % (24.0-44.0); MEAN CORPUSCULAR HEMOGLOBIN 17.5 pg (27.0-33.0); MEAN CORPUSCULAR HGB CONC 26.6 g/dl (32.0-36.5); MEAN CORPUSCULAR VOLUME 65.9 fl (80.0-96.0); MONO # 0.4 10^3/uL (0.0-0.8); NEUTROPHILS # 7.2 10^3/uL (1.5-8.5); NEUTROPHILS % 62.2 % (36.0-66.0); PLATELET COUNT, AUTOMATED 476 10^3/uL (150-450); RED BLOOD COUNT 5.31 10^6/uL (4.00-5.40); WHITE BLOOD COUNT 11.6 10^3/uL (4.0-10.0)
[2024-07-04 16:06] LABS: FERRITIN 2.8 NG/ML (7.3-270.7); FREE T4 1.25 NG/DL (0.89-1.76); THYROID STIMULATING HORMONE 1.177 uIU/ML (0.55-4.78)
== END ==
LOC: M PLALAB 12:23
PROVIDERS: ATTEND Nurse Practitioner Family
DX: L68.0 Hirsutism (principal)

== ENCOUNTER 2024-07-27 14:59 | Outpatient (CLI) | payer OTHER ==
[~2024-07-27] VITALS: Ht 170.2 cm; Wt 118.0 kg
[~2024-07-27 14:59] MED LIST changes: +ALBUTEROL SULFATE 2.5MG/0.5ML INH NEB SOLN INH PRN; +EPINEPHrine INJ 1 MG/ML 1ML AMP IM PRN; +diphenhydrAMINE 50MG/ML VIAL IV PRN; +methylPREDNISolone 125MG 2ML VIAL IV PRN
[2024-07-27 15:10] VITALS: BP 138/84; O2SAT 98
[2024-07-27] MEDS: ACETAMINOPHEN 650MG PO PRIOR TO INFUSION PO ONE (15:15)
[2024-07-27] MEDS: diphenhydrAMINE 25MG PO PRIOR TO INFUSION PO ONE (15:15)
[2024-07-27] MEDS: IRON SUCROSE 100 MG IV ONE (15:41)
[2024-07-27 16:30] VITALS: BP 138/78; O2SAT 96
== END 2024-07-27 16:35 ==
LOC: M INFU 14:59
PROVIDERS: ATTEND Nurse Practitioner Family
DX: D64.9 Anemia, unspecified (principal); Z88.2 Allergy status to sulfonamides; Z88.1 Allergy status to other antibiotic agents; Z88.6 Allergy status to analgesic agent; Z88.8 Allergy status to other drugs, medicaments and biological substances
CPT/HCPCS: 96374; J1756

== ENCOUNTER 2024-08-08 11:55 | Outpatient (CLI) | payer OTHER ==
[~2024-08-08] VITALS: Ht 170.2 cm; Wt 120.0 kg
[2024-08-08] MEDS: ACETAMINOPHEN 650 MG PO ONE (11:54)
[2024-08-08] MEDS: diphenhydrAMINE 25MG CAP PO ONE (11:54)
[2024-08-08 11:55] VITALS: BP 132/61; O2SAT 98
[~2024-08-08 11:55] MED LIST changes: +ACETAMINOPHEN 325 MG TAB PO ONE; +ACETAMINOPHEN 650MG ER TAB (TYLENOL ARTHRITIS) PO ONE; +CARI-555; +CARI-555 PO; -CARI1TAB7; -CARI1TAB7 PO; +IRON SUCROSE 100MG 5ML VIAL IV ONE; +diphenhydrAMINE 25MG PO PRIOR TO INFUSION PO ONE
[2024-08-08] MEDS: IRON SUCROSE 100 MG IV ONE (12:17)
[2024-08-08 13:00] VITALS: BP 103/53; O2SAT 98
== END 2024-08-08 13:00 ==
LOC: M INFU 11:55
PROVIDERS: ATTEND Nurse Practitioner Family
DX: D64.9 Anemia, unspecified (principal); Z88.1 Allergy status to other antibiotic agents; Z88.2 Allergy status to sulfonamides; Z88.6 Allergy status to analgesic agent; Z88.8 Allergy status to other drugs, medicaments and biological substances
CPT/HCPCS: 96374; J1756

== ENCOUNTER 2024-08-15 14:00 | Outpatient (CLI) | payer OTHER ==
[~2024-08-15] VITALS: Ht 170.2 cm; Wt 120.5 kg
[2024-08-15 14:00] VITALS: BP 123/79; O2SAT 95
[~2024-08-15 14:00] MED LIST changes: -ACETAMINOPHEN 325 MG TAB PO ONE; -ACETAMINOPHEN 650MG ER TAB (TYLENOL ARTHRITIS) PO ONE; -IRON SUCROSE 100MG 5ML VIAL IV ONE; -diphenhydrAMINE 25MG PO PRIOR TO INFUSION PO ONE
[2024-08-15] MEDS: diphenhydrAMINE 25MG CAP PO ONE (14:08)
[2024-08-15] MEDS: ACETAMINOPHEN 650 MG PO ONE (14:08)
[2024-08-15] MEDS: IRON SUCROSE 100 MG IV ONE (14:27)
[2024-08-15 14:58] VITALS: BP 135/83; O2SAT 99
[2024-08-15 15:30] VITALS: BP 138/88; O2SAT 99
== END 2024-08-15 15:30 ==
LOC: M INFU 14:00
PROVIDERS: ATTEND Nurse Practitioner Family
DX: D64.9 Anemia, unspecified (principal); Z88.1 Allergy status to other antibiotic agents; Z88.2 Allergy status to sulfonamides; Z88.6 Allergy status to analgesic agent; Z88.8 Allergy status to other drugs, medicaments and biological substances
CPT/HCPCS: 96374; J1756

== ENCOUNTER 2024-08-29 15:15 | Outpatient (CLI) | payer OTHER ==
[~2024-08-29] VITALS: Ht 167.6 cm; Wt 118.0 kg
[2024-08-29] MEDS: IRON SUCROSE 100 MG IV ONE (15:25)
[2024-08-29] MEDS: diphenhydrAMINE 25MG PO PRIOR TO INFUSION PO ONE (15:25)
[2024-08-29] MEDS: ACETAMINOPHEN 650MG PO PRIOR TO INFUSION PO ONE (15:25)
[2024-08-29 15:46] VITALS: BP 154/89; O2SAT 96
[2024-08-29 15:57] VITALS: BP 143/80; O2SAT 98
== END 2024-08-29 16:00 ==
LOC: M INFU 15:15
PROVIDERS: ATTEND Nurse Practitioner Family
DX: D64.9 Anemia, unspecified (principal); Z88.1 Allergy status to other antibiotic agents; Z88.2 Allergy status to sulfonamides; Z88.6 Allergy status to analgesic agent; Z88.8 Allergy status to other drugs, medicaments and biological substances
CPT/HCPCS: 96374; J1756

== ENCOUNTER 2024-09-09 15:10 | Outpatient (CLI) | payer OTHER ==
[~2024-09-09] VITALS: Ht 170.2 cm; Wt 118.2 kg
[2024-09-09 15:10] VITALS: BP 132/88; O2SAT 100
[2024-09-09] MEDS: ACETAMINOPHEN 650 MG PO ONE (15:18)
[2024-09-09] MEDS: diphenhydrAMINE 25MG CAP PO ONE (15:18)
[2024-09-09] MEDS: IRON SUCROSE 100 MG IV ONE (15:31)
[2024-09-09 16:05] VITALS: BP 131/77; O2SAT 96
== END 2024-09-09 16:10 ==
LOC: M INFU 15:10
PROVIDERS: ATTEND Nurse Practitioner Family
DX: D64.9 Anemia, unspecified (principal); Z88.1 Allergy status to other antibiotic agents; Z88.6 Allergy status to analgesic agent; Z88.8 Allergy status to other drugs, medicaments and biological substances
CPT/HCPCS: 96374; J1756

== ENCOUNTER → 2024-12-22 | Outpatient (CLI) | payer OTHER ==
[~2024-12-22] MED LIST changes: -ALBUTEROL SULFATE 2.5MG/0.5ML INH NEB SOLN INH PRN; -AMBI10TA PO; +CLOM50TA31 PO; -CLOM50TA9 PO; -EPINEPHrine INJ 1 MG/ML 1ML AMP IM PRN; +ZOLP-533 PO; -diphenhydrAMINE 50MG/ML VIAL IV PRN; -methylPREDNISolone 125MG 2ML VIAL IV PRN
[2024-12-22 10:18] LABS: PLATELET COUNT, AUTOMATED 379 10^3/uL (150-450)
[2024-12-22 10:48] LABS: ALT/SGPT 13 U/L (7.0-40); AST/SGOT 16 U/L (<34); CALCIUM LEVEL 9.6 MG/DL (8.5-10.1); CARBON DIOXIDE LEVEL 30 MMOL/L (20-31); CHLORIDE LEVEL 103 MMOL/L (98-107); CREATININE FOR GFR 0.92 MG/DL (0.55-1.30); GLOMERULAR FILTRATION RATE 83.8 (>60); POTASSIUM SERUM 4.7 MMOL/L (3.5-5.1); SODIUM LEVEL 141 MMOL/L (136-145)
[2024-12-22 10:58] LABS: HCG, SERUM QUALITATIVE NEGATIVE (NEGATIVE)
[2024-12-22 11:20] LABS: HIV 1&2 SCREEN NEGATIVE (NEGATIVE)
[2024-12-22 11:39] LABS: HEPATITIS C VIRUS ABY INDEX > 11.00 INDEX (<0.8)
[2024-12-22 11:46] LABS: GC DNA AMPLIFICATION NEGATIVE (NEGATIVE)
[2024-12-24 03:07] LABS: HCV RNA QUANTITATION <15 NOT DETECTED IU/mL (NOT DETECTED); HCV RNA log10 <1.18 NOT DETECTED Log IU/mL (NOT DETECTED)
== END ==
LOC: M LAB 09:17
PROVIDERS: ATTEND Family Medicine
DX: F11.20 Opioid dependence, uncomplicated (principal)

== ENCOUNTER → 2025-01-02 | Outpatient (REF) | payer OTHER ==
[2025-01-04 15:38] LABS: HPV APTIMA Not Detected (Not Detected)
== END ==
LOC: M SFHCWAGY 12:54
PROVIDERS: ATTEND Nurse Practitioner Family
DX: Z12.4 Encounter for screening for malignant neoplasm of cervix (principal)

== ENCOUNTER 2025-02-20 07:19 | Day surgery (SDC) | payer OTHER ==
[~2025-02-20] VITALS: Ht 167.6 cm; Wt 111.6 kg
[~2025-02-20 07:19] MED LIST changes: -IBUP-1022 PO; +IBUP600T42 PO; +LORY1TAB2 PO; +METF-838 PO; +METH-1177 PO; +OMEP40CA5 PO; +SPIR100T3 PO
[2025-02-20] MEDS ORDERED: KETAMINE HCL 200 MG/20 ML VIAL As Ordered ONE (09:14)
[2025-02-20] MEDS ORDERED: MIDAZOLAM INJ 2 MG/2 ML VIAL As Ordered ONE (09:15)
[2025-02-20] MEDS ORDERED: GLYCOPYRROLATE INJ 0.2 MG/ML 2 ML VIAL As Ordered ONE (09:16)
[2025-02-20 09:45] VITALS: TEMP 97.7
[2025-02-20 10:34] VITALS: BP 129/87; O2SAT 97
== END 2025-02-20 10:35 | disposition home or self-care (01) ==
LOC: M OPP 07:19
PROVIDERS: ATTEND Internal Medicine Gastroenterology
DX: K64.0 First degree hemorrhoids (principal); K59.04 Chronic idiopathic constipation; K44.9 Diaphragmatic hernia without obstruction or gangrene; K22.70 Barrett's esophagus without dysplasia; K21.00 Gastro-esophageal reflux disease with esophagitis, without bleeding; R12 Heartburn; Z88.2 Allergy status to sulfonamides; Z88.8 Allergy status to other drugs, medicaments and biological substances; Z79.84 Long term (current) use of oral hypoglycemic drugs; Z79.899 Other long term (current) drug therapy
CPT/HCPCS: 43239; 45378; 88305; J1596; J2250

== ENCOUNTER → 2025-04-19 | Outpatient (CLI) | payer OTHER ==
[~2025-04-19] MED LIST changes: -DIPH50CA PO; +DIPH50CA31 PO; -LUMA42CA PO; +LUMA42CA4 PO; +ZOLP10TA11 PO; -ZOLP10TA2 PO; -ZOLP5TAB PO; +ZOLP5TAB9 PO
[2025-04-19 14:23] LABS: HCG, SERUM QUANTITATIVE < 2.6 MIU/ML (<4.2)
[2025-04-19 14:26] LABS: FREE T4 1.06 NG/DL (0.89-1.76)
[2025-04-19 14:28] LABS: LUTEINIZING HORMONE 12.0 mIU/ML; PROGESTERONE 1.06 NG/ML
== END ==
LOC: M PLALAB 10:21
PROVIDERS: ATTEND Specialist
DX: N92.6 Irregular menstruation, unspecified (principal)